=== PATIENT | male | born 1955 | race Caucasian/White ===

== ENCOUNTER 2018-07-02 09:12 | Inpatient (IN) | payer SELFPAY ==
[~2018-07-02] VITALS: Ht 177.8 cm; Wt 56.7 kg
[~2018-07-02 09:12] MED LIST: ASPI-630 PO; AZIT500T PO; HYDR-2761 PO; PANT20TA2 PO; PRED20TA PO
--- NOTE | 2018-07-02 09:40 | PHYS DOC ---
Past Medical History Past Medical History: No Pertinent History Past Surgical History: Other Additional Past Surgical Histo: KIDNEY REMOVED Alcohol Use: None Drug Use: None Adult General HPI HPI 63-year-old male presents to ER via EMS from his residence for tremors. BS 151 on arrival. Pt appears fatigued w/dry mucous membranes. Per pt's previous medical records pt possibly speaks Yi however his girlfriend or other family members haven't arrived and translation phone used to attempt communication was unsuccessful as editor newspaper denied pt speaking [place] language. So difficult communicating with pt to obtain full hx/sxs. Pt repeatedly saying he is thirsting. Review of Systems Review of Systems Unable to obtain ROS with language barrier- uncertain if pt has had change in me ntal status with no family at bedside Current Medications Current Medications Current Medications Medications (Trade) Dose Ordered Sig/Gloria Start Time Stop Time Status Last Admin Dose Admin Lorazepam (Ativan) 0.5 mg 1X ONCE 07/02/18 12:30 07/02/18 12:31 DC 07/02/18 12:12 0.5 MG Sodium Chloride 1,000 ml @ 1,000 mls/hr 1X ONCE 07/02/18 10:00 07/02/18 10:59 DC 07/02/18 10:00 1,000 MLS/HR Allergies Allergies Allergies Coded Allergies Type Severity Reaction Last Updated Verified No Known Drug Allergies 03/25/18 No Physical Exam Physical Exam Constitutional: Well developed, well nourished, anxious during initial exam with facial twitching and tremors in bilat. upper extremities, non-toxic appearance. [] HENT: Normocephalic, atraumatic, bilateral ears normal, mucous membranes pink/dry no oral exudates, nose normal. Symmetric facial features Eyes: 3mm PERRLA, no nystagmus, conjunctiva normal, no discharge. [] Neck: Normal range of motion, no facial grimacing on palp. of cspine- no palp. deformity/crepitus, supple, no stridor. [] Cardiovascular: Heart rate regular rhythm, no murmur [] Lungs & Thorax: Bilateral breath sounds clear to auscultation. Resp. equal/nonlabored Abdomen: Bowel sounds normal, soft, no facial grimacing during palp. of abd, no masses, no pulsatile masses. [] Skin: Warm, dry, no erythema, no rash Extremities: No tenderness, no cyanosis, no clubbing, ROM intact, no edema. [] Neurologic: Alert- Difficult to fully assess neuro status with language barrier Psychologic: Anxious during exam- repeatedly asking for drink of water. Current Patient Data Vital Signs Vital Signs Date Time Temp Pulse Resp B/P (MAP) Pulse Ox O2 Delivery O2 Flow Rate FiO2 07/02/18 12:25 86 20 198/81 (120) 96 Room Air 07/02/18 10:42 98.0 98.0 Lab Values Laboratory Tests Test 07/02/18 09:23 07/02/18 10:00 07/02/18 11:10 07/02/18 11:20 Glucose (Fingerstick) 151 mg/dL (70-99) H White Blood Count 9.9 x10^3/uL (4.0-11.0) Red Blood Count 6.05 x10^6/uL (4.30-5.70) H Hemoglobin 15.0 g/dL (13.0-17.5) Hematocrit 46.3 % (39.0-53.0) Mean Corpuscular Volume 77 fL (79-100) L Mean Corpuscular Hemoglobin 25 pg (25-35) Mean Corpuscular Hemoglobin Concent 32 g/dL (31-37) Red Cell Distribution Width 15.1 % (11.5-14.5) H Platelet Count 198 x10^3/uL (140-400) Neutrophils (%) (Auto) 76 % (31-73) H Lymphocytes (%) (Auto) 15 % (24-48) L Monocytes (%) (Auto) 5 % (0-9) Eosinophils (%) (Auto) 4 % (0-3) H Basophils (%) (Auto) 1 % (0-3) Neutrophils # (Auto) 7.5 x10^3uL (1.8-7.7) Lymphocytes # (Auto) 1.5 x10^3/uL (1.0-4.8) Monocytes # (Auto) 0.5 x10^3/uL (0.0-1.1) Eosinophils # (Auto) 0.3 x10^3/uL (0.0-0.7) Basophils # (Auto) 0.1 x10^3/uL (0.0-0.2) Triglycerides Level 55 mg/dL (0-150) Cholesterol Level 152 mg/dL (0-200) LDL Cholesterol, Calculated 88 mg/dL (0-100) VLDL Cholesterol, Calculated 11 mg/dL (0-40) Non-HDL Cholesterol Calculated 99 mg/dL (0-129) HDL Cholesterol 53 mg/dL (40-60) Cholesterol/HDL Ratio 2.9 Sodium Level 140 mmol/L (136-145) Potassium Level 5.5 mmol/L (3.5-5.1) H Chloride Level 104 mmol/L (98-107) Carbon Dioxide Level 30 mmol/L (21-32) Anion Gap 6 (6-14) Blood Urea Nitrogen 22 mg/dL (8-26) Creatinine 1.1 mg/dL (0.7-1.3) Estimated GFR (Cockcroft-Gault) 67.6 BUN/Creatinine Ratio 20 (6-20) Glucose Level 126 mg/dL (70-99) H Calcium Level 8.9 mg/dL (8.5-10.1) Total Bilirubin 0.6 mg/dL (0.2-1.0) Aspartate Amino Transferase (AST) 28 U/L (15-37) Alanine Aminotransferase (ALT) 29 U/L (16-63) Alkaline Phosphatase 98 U/L (46-116) Creatine Kinase 89 U/L (39-308) Creatine Kinase MB (Mass) 1.5 ng/mL (0.0-3.6) Creatine Kinase MB Relative Index 1.7 % (0-4) Troponin I Quantitative 0.163 ng/mL (0.000-0.055) Total Protein 8.4 g/dL (6.4-8.2) H Albumin 3.6 g/dL (3.4-5.0) Albumin/Globulin Ratio 0.8 (1.0-1.7) L Ethyl Alcohol Level < 10 mg/dL (0-10) Influenza Type A Antigen Negative (NEGATIVE) Influenza Type B Antigen Negative (NEGATIVE) Test 07/02/18 12:24 Urine Collection Type Unknown Urine Color Yellow Urine Clarity Clear Urine pH 7.0 Urine Specific [place] 1.025 Urine Protein 100 mg/dL (NEG-TRACE) Urine Glucose (UA) Negative mg/dL (NEG) Urine Ketones (Stick) Negative mg/dL (NEG) Urine Blood Small (NEG) Urine Nitrite Negative (NEG) Urine Bilirubin Negative (NEG) Urine Urobilinogen Dipstick 0.2 mg/dL (0.2 mg/dL) Urine Leukocyte Esterase Negative (NEG) Urine RBC 20-40 /HPF (0-2) Urine WBC Occ /HPF (0-4) Urine Squamous Epithelial Cells Few /LPF Urine Bacteria 0 /HPF (0-FEW) Urine Mucus Slight /LPF Urine Opiates Screen Neg (NEG) Urine Methadone Screen Neg (NEG) Urine Barbiturates Neg (NEG) Urine Phencyclidine Screen Neg (NEG) Urine Amphetamine/Methamphetamine Neg (NEG) Urine Benzodiazepines Screen Neg (NEG) Urine Cocaine Screen Neg (NEG) Urine Cannabinoids Screen Neg (NEG) Urine Ethyl Alcohol Neg (NEG) Laboratory Tests 07/02/18 10:00 Laboratory Tests 07/02/18 11:10 EKG EKG EKG obtained 07/02/18 at [address] Mayes Sinu rhythm PACs Rate 81 No STEMI Radiology/Procedures Radiology/Procedures PROCEDURE: CT HEAD WO CONTRAST EXAM: Head CT without contrast. HISTORY: Tremors. TECHNIQUE: Computed tomographic images of the head were obtained without contrast.. *One or more of the following individualized dose reduction techniques were utilized for this examination: 1. Automated exposure control. 2. Adjustment of the mA and/or kV according to patient size. 3. Use of iterative reconstruction technique. COMPARISON: None. FINDINGS: There is no acute or subacute extra-axial or intraparenchymal hemorrhage. There is no mass effect or midline shift. There is no hydrocephalus. There is asymmetry within the right greater than left lateral ventricles, likely due to the combination of developmental asymmetry and asymmetric cerebral volume loss. There are areas of decreased attenuation within the cerebral white matter, nonspecific and likely related to chronic small vessel disease. There is paranasal sinus mucosal thickening. There is maxillary sinus wall thickening due to the sequela of chronic sinusitis. The mastoid air cells are clear. No suspicious calvarial lesion is seen. There is a prominent left frontal bone and arachnoid granulation. IMPRESSION: 1. No acute intracranial finding. Note is made that MRI is more sensitive for acute infarction. 2. Decreased attenuation within the cerebral white matter, likely due to chronic small vessel disease. 3. Cerebral atrophy. Electronically signed by: Leora Lopez MD (07/02/2018 10:37 AM) [place] [id number] DICTATED and SIGNED BY: LEORA LOPEZ MD DATE: 07/02/18 1037 PROCEDURE: CHEST AP ONLY Chest radiograph 07/02/2018 9:32 AM INDICATION: Tremors, diaphoretic COMPARISON: March 25, 2018 TECHNIQUE: Portable frontal semi-upright view of the chest is provided. FINDINGS: The cardiomediastinal silhouette is within normal limits. There are no pleural effusions. There is no pulmonary vascular congestion. There is no pneumothorax. The lungs are clear. No significant osseous abnormality is identified. IMPRESSION: No acute cardiopulmonary process. Electronically signed by: Autumn Ceja MD (07/02/2018 10:17 AM) [id number] DICTATED and SIGNED BY: AUTUMN CEJA MD DATE: 07/02/18 1017 Course & Med Decision Making Course & Med Decision Making Pertinent Labs and Imaging studies reviewed. (See chart for details) While in the ER patient continued to have tremors in upper extremities and facial twitching. During these episodes patient was alert and continued to request ice. Patient had no episodes of decreased level of consciousness. As no family members arrived communication with patient prior to admit was limited. Patient did have head CT which was negative for acute findings. Chest x-ray also negative for acute findings. EKG with no acute ST elevation or STEMI. Troponin was elevated from previous results on 03/25/18 troponin was <0.017 and today troponin was 0.163. Order placed for aspirin 324mg. No records in patient's history of previous tremors or seizure-like activity. Patient's UDS was negative. Initial potassium was 5.5 and patient did receive IV fluids after lab draw. 1300: Spoke with Dr. Silveira, hospitalist and discussed pt's case and admit plan. With elevated troponin will consult Cardiology with admit orders. Dragon Disclaimer Dragon Disclaimer This electronic medical record was generated, in whole or in part, using a voice recognition dictation system. Departure Departure Impression: Primary Impression: Elevated troponin Additional Impression: Tremor Disposition: ADMITTED INPATIENT Admitting Physician: Luis Fernando Lewis Condition: STABLE Referrals: UNKNOWN PCP NAME (PCP) Scripts Morphine Sulfate (MORPHINE SULFATE) 15 Mg Tablet 1 TAB PO QID PRN for PAIN, #60 TAB Prov: BRANDIE CASTRO MD 07/29/18 Lorazepam (ATIVAN) 1 Mg Tablet 1 MG PO Q4HRS PRN for ANXIETY / AGITATION, #90 TAB Prov: BRANDIE CASTRO MD 07/29/18 Quetiapine Fumarate (SEROQUEL) 100 Mg Tablet 100 MG PO BID PRN for ANXIETY / AGITATION, #60 TAB Prov: BRANDIE CASTRO MD 07/29/18 Zolpidem Tartrate (AMBIEN) 5 Mg Tablet 5 MG PO PRN QHS PRN for INSOMNIA, #30 TAB Prov: BRANDIE CASTRO MD 07/29/18 Docusate Sodium (COLACE) 100 Mg Capsule 100 MG PO PRN BID PRN for CONSTIPATION, #60 CAP Prov: BRANDIE CASTRO MD 07/29/18 Problem Qualifiers FLORENTINO GARRIDO APRN Jul 02, 2018 09:40
[2018-07-02] MEDS ORDERED: IV NORMAL SALINE 1000ML BAG 1,000 ML IV ONE (10:00)
[2018-07-02 10:16] LABS: BASO # 0.1 x10^3/uL (0.0-0.2); BASO % 1 % (0-3); EOS # 0.3 x10^3/uL (0.0-0.7); EOS % 4 % (0-3); HEMATOCRIT 46.3 % (39.0-53.0); LYMPH # 1.5 x10^3/uL (1.0-4.8); LYMPH % 15 % (24-48); MEAN CORPUSCULAR HEMOGLOBIN 25 pg (25-35); MEAN CORPUSCULAR HGB CONC 32 g/dL (31-37); MEAN CORPUSCULAR VOLUME 77 fL (79-100); MONO # 0.5 x10^3/uL (0.0-1.1); MONO % 5 % (0-9); NEUT # 7.5 x10^3uL (1.8-7.7); NEUT % 76 % (31-73); PLATELET COUNT 198 x10^3/uL (140-400); RED BLOOD COUNT 6.05 x10^6/uL (4.30-5.70); RED CELL DISTRIBUTION WIDTH 15.1 % (11.5-14.5); WHITE BLOOD COUNT 9.9 x10^3/uL (4.0-11.0)
--- NOTE | 2018-07-02 10:20 | RAD ---
Chest radiograph 07/02/2018 9:32 AM INDICATION: Tremors, diaphoretic COMPARISON: March 25, 2018 TECHNIQUE: Portable frontal semi-upright view of the chest is provided. FINDINGS: The cardiomediastinal silhouette is within normal limits. There are no pleural effusions. There is no pulmonary vascular congestion. There is no pneumothorax. The lungs are clear. No significant osseous abnormality is identified. IMPRESSION: No acute cardiopulmonary process. Electronically signed by: Genny Bonilla MD (07/02/2018 10:17 AM) [id number]
--- NOTE | 2018-07-02 10:41 | RAD ---
EXAM: Head CT without contrast. HISTORY: Tremors. TECHNIQUE: Computed tomographic images of the head were obtained without contrast.. *One or more of the following individualized dose reduction techniques were utilized for this examination: 1. Automated exposure control. 2. Adjustment of the mA and/or kV according to patient size. 3. Use of iterative reconstruction technique. COMPARISON: None. FINDINGS: There is no acute or subacute extra-axial or intraparenchymal hemorrhage. There is no mass effect or midline shift. There is no hydrocephalus. There is asymmetry within the right greater than left lateral ventricles, likely due to the combination of developmental asymmetry and asymmetric cerebral volume loss. There are areas of decreased attenuation within the cerebral white matter, nonspecific and likely related to chronic small vessel disease. There is paranasal sinus mucosal thickening. There is maxillary sinus wall thickening due to the sequela of chronic sinusitis. The mastoid air cells are clear. No suspicious calvarial lesion is seen. There is a prominent left frontal bone and arachnoid granulation. IMPRESSION: 1. No acute intracranial finding. Note is made that MRI is more sensitive for acute infarction. 2. Decreased attenuation within the cerebral white matter, likely due to chronic small vessel disease. 3. Cerebral atrophy. Electronically signed by: Leora Davila MD (07/02/2018 10:37 AM) [id number]
[2018-07-02 11:37] LABS: ALBUMIN 3.6 g/dL (3.4-5.0); ALBUMIN/GLOBULIN RATIO 0.8 (1.0-1.7); CALCIUM 8.9 mg/dL (8.5-10.1); CREATININE 1.1 mg/dL (0.7-1.3); GFR 67.6; POTASSIUM 5.5 mmol/L (3.5-5.1); TOTAL BILIRUBIN 0.6 mg/dL (0.2-1.0); TOTAL PROTEIN 8.4 g/dL (6.4-8.2)
[2018-07-02 12:17] LABS: INFLUENZA A PATIENT NEGATIVE (NEGATIVE); INFLUENZA B PATIENT NEGATIVE (NEGATIVE)
[2018-07-02 12:33] LABS: BILIRUBIN,URINE NEGATIVE (NEG); CLARITY,URINE CLEAR; COLOR,URINE YELLOW; NITRITE,URINE NEGATIVE (NEG); PROTEIN,URINE 100 mg/dL (NEG-TRACE); UROBILINOGEN,URINE 0.2 mg/dL (0.2 mg/dL)
[2018-07-02 12:40] LABS: AMPHETAMINE/METHAMPHETAMINE NEG (NEG); BARBITURATES NEG (NEG); BENZODIAZEPINES NEG (NEG); CANNABINOIDS NEG (NEG); COCAINE NEG (NEG); METHADONE NEG (NEG); OPIATES NEG (NEG); PHENCYCLIDINE NEG (NEG)
[2018-07-02 12:54] LABS: SQUAMOUS EPITHELIAL CELL,UR FEW /LPF
[2018-07-02 12:55] LABS: BACTERIA,URINE 0 /HPF (0-FEW); RBC,URINE 20-40 /HPF (0-2); WBC,URINE OCC /HPF (0-4)
[2018-07-02] MEDS ORDERED: ASPIRIN CHEWABLE 81 MG TABLET. PO ONE (13:30)
--- NOTE | 2018-07-02 13:34 | PDOC1 ---
History and Physical Date of Admission Date of Admission DATE: 07/02/18 TIME: 13:34 Identification/Chief Complaint Chief Complaint presents to ER via EMS from his residence for tremors. BS 151 on arrival. Pt appears fatigued somnolent, post-ictal SEEN WITH altered mental state. girlfriend mentioned noting him to be disoriented and EMS was called. He speaks kinyarwanda. ER noted with tremors while on floor /// noted with seizure episode and 911 was called Past Medical History Past Medical History Past Medical History Past Medical History Past Medical History: No Pertinent History Past Surgical History: Other Additional Past Surgical Histo: KIDNEY REMOVED Alcohol Use: None Drug Use: None PAST MEDICAL HISTORY Cardiovascular: Other (PAD; hx of asymptomatic SB) GERD PAST SURGICAL HISTORY Past Surgical History: Other (left nephrectomy) FAMILY HISTORY Family History: Family HX COPD SOCIAL HISTORY Smoke: <1 pack per day Lives: Friends Pulmonary: No pertinent hx GI: No pertinent hx Musculoskeletal: Osteoarthritis Infectious disease: No pertinent hx Renal/: No pertinent hx Endocrine: No pertinent hx Past Surgical History Past Surgical History: Other Family History Family History: Chronic Bronchitis Social History Smoke: No ALCOHOL: occassional Drugs: None Current Medications Current Medications Current Medications Sodium Chloride 1,000 ml @ 1,000 mls/hr 1X ONCE IV Last administered on at 10:00; Start 07/02/18 at 10:00; Stop 07/02/18 at 10:59; Status DC Lorazepam (Ativan) 0.5 mg 1X ONCE IV Last administered on 07/02/18at 12:12; Start 07/02/18 at 12:30; Stop 07/02/18 at 12:31; Status DC Aspirin (Children'S Aspirin) 324 mg 1X ONCE PO Last administered on 07/02/18at 13:18; Start 07/02/18 at 13:30; Stop 07/02/18 at 13:31; Status DC Active Scripts Active Reported Zithromax (Azithromycin) 500 Mg Tablet 1 Tab PO DAILY Aspirin 81 Mg Tab.chew 81 Mg PO DAILY Hydrocodone-Apap 5-325 (Hydrocodone Bit/Acetaminophen) 1 Tab Tablet 1 Tab PO PRN Q6HRS PRN Allergies Allergies: Coded Allergies: No Known Drug Allergies (Unverified , 03/25/18) ROS Review of System Review of Systems Review of Systems Constitutional: Denies fever or chills [] Eyes: Denies change in visual acuity, redness, or eye pain [] HENT: Denies nasal congestion or sore throat [] Respiratory: Denies cough or shortness of breath [] Cardiovascular: No additional information not addressed in HPI [] GI: Denies abdominal pain, nausea, vomiting, bloody stools or diarrhea [] : Denies dysuria or hematuria [] Musculoskeletal: Denies back pain or joint pain [] Integument: Denies rash or skin lesions [] Neurologic: Denies headache, focal weakness or sensory changes [] Endocrine: Denies polyuria or polydipsia [] 14 PT systems were reviewed and found to be within normal limits, except as documented . Hematological and Lymphatic: No: Bleeding Problems, Blood Clots, Blood Transfusions, Brusing, Night Sweats, Pallor, Swollen Lymph Nodes, Other Neurological: Yes Seizures Physical Exam Physical Exam Physical Exam Physical Exam Constitutional: Well developed, well nourished, anxious during initial exam with facial twitching and tremors in bilat. upper extremities, non-toxic appearance. [] HENT: Normocephalic, atraumatic, bilateral ears normal, mucous membranes pink/ dry no oral exudates, nose normal. [] Eyes: 3mm PERRLA, EOMI, conjunctiva normal, no discharge. [] Neck: Normal range of motion, no facial grimacing on palp. of cspine- no palp. deformity/crepitus, supple, no stridor. [] Cardiovascular: Heart rate regular rhythm, no murmur [] Lungs & Thorax: Bilateral breath sounds clear to auscultation. Resp. equal/ nonlabored Abdomen: Bowel sounds normal, soft, no facial grimacing during palp. of abd, no masses, no pulsatile masses. [] Skin: Warm, dry, no erythema, no rash Extremities: No tenderness, no cyanosis, no clubbing, ROM intact, no edema. [] Neurologic: Psychologic: Anxious during exam- repeatedly asking for drink of water. General: Cooperative, mild distress HEENT: Atraumatic Lungs: Clear to auscultation Breasts: Not examined Abdomen: Soft Rectal Exam: not examined PELVIC: Examination not indicated Extremities: No cyanosis Skin: No breakdown Neuro: Normal speech, Cranial nerves 3-12 NL Vitals Vitals Vital Signs Date Time Temp Pulse Resp B/P (MAP) Pulse Ox O2 Delivery O2 Flow Rate FiO2 07/02/18 10:42 98.0 73 18 140/81 (100) 96 Room Air 98.0 Labs Labs Laboratory Tests Test 07/02/18 09:23 07/02/18 10:00 07/02/18 11:10 07/02/18 11:20 Glucose (Fingerstick) 151 mg/dL (70-99) White Blood Count 9.9 x10^3/uL (4.0-11.0) Red Blood Count 6.05 x10^6/uL (4.30-5.70) Hemoglobin 15.0 g/dL (13.0-17.5) Hematocrit 46.3 % (39.0-53.0) Mean Corpuscular Volume 77 fL (79-100) Mean Corpuscular Hemoglobin 25 pg (25-35) Mean Corpuscular Hemoglobin Concent 32 g/dL (31-37) Red Cell Distribution Width 15.1 % (11.5-14.5) Platelet Count 198 x10^3/uL (140-400) Neutrophils (%) (Auto) 76 % (31-73) Lymphocytes (%) (Auto) 15 % (24-48) Monocytes (%) (Auto) 5 % (0-9) Eosinophils (%) (Auto) 4 % (0-3) Basophils (%) (Auto) 1 % (0-3) Neutrophils # (Auto) 7.5 x10^3uL (1.8-7.7) Lymphocytes # (Auto) 1.5 x10^3/uL (1.0-4.8) Monocytes # (Auto) 0.5 x10^3/uL (0.0-1.1) Eosinophils # (Auto) 0.3 x10^3/uL (0.0-0.7) Basophils # (Auto) 0.1 x10^3/uL (0.0-0.2) Sodium Level 140 mmol/L (136-145) Potassium Level 5.5 mmol/L (3.5-5.1) Chloride Level 104 mmol/L (98-107) Carbon Dioxide Level 30 mmol/L (21-32) Anion Gap 6 (6-14) Blood Urea Nitrogen 22 mg/dL (8-26) Creatinine 1.1 mg/dL (0.7-1.3) Estimated GFR (Cockcroft-Gault) 67.6 BUN/Creatinine Ratio 20 (6-20) Glucose Level 126 mg/dL (70-99) Calcium Level 8.9 mg/dL (8.5-10.1) Total Bilirubin 0.6 mg/dL (0.2-1.0) Aspartate Amino Transf (AST/SGOT) 28 U/L (15-37) Alanine Aminotransferase (ALT/SGPT) 29 U/L (16-63) Alkaline Phosphatase 98 U/L (46-116) Creatine Kinase 89 U/L (39-308) Creatine Kinase MB (Mass) 1.5 ng/mL (0.0-3.6) Creatine Kinase MB Relative Index 1.7 % (0-4) Troponin I Quantitative 0.163 ng/mL (0.000-0.055) Total Protein 8.4 g/dL (6.4-8.2) Albumin 3.6 g/dL (3.4-5.0) Albumin/Globulin Ratio 0.8 (1.0-1.7) Ethyl Alcohol Level < 10 mg/dL (0-10) Influenza Type A Antigen Negative (NEGATIVE) Influenza Type B Antigen Negative (NEGATIVE) Test 07/02/18 12:24 Urine Collection Type Unknown Urine Color Yellow Urine Clarity Clear Urine pH 7.0 Urine Specific [place] 1.025 Urine Protein 100 mg/dL (NEG-TRACE) Urine Glucose (UA) Negative mg/dL (NEG) Urine Ketones (Stick) Negative mg/dL (NEG) Urine Blood Small (NEG) Urine Nitrite Negative (NEG) Urine Bilirubin Negative (NEG) Urine Urobilinogen Dipstick 0.2 mg/dL (0.2 mg/dL) Urine Leukocyte Esterase Negative (NEG) Urine RBC 20-40 /HPF (0-2) Urine WBC Occ /HPF (0-4) Urine Squamous Epithelial Cells Few /LPF Urine Bacteria 0 /HPF (0-FEW) Urine Mucus Slight /LPF Urine Opiates Screen Neg (NEG) Urine Methadone Screen Neg (NEG) Urine Barbiturates Neg (NEG) Urine Phencyclidine Screen Neg (NEG) Urine Amphetamine/Methamphetamine Neg (NEG) Urine Benzodiazepines Screen Neg (NEG) Urine Cocaine Screen Neg (NEG) Urine Cannabinoids Screen Neg (NEG) Urine Ethyl Alcohol Neg (NEG) Laboratory Tests Test 07/02/18 09:23 07/02/18 10:00 07/02/18 11:10 07/02/18 11:20 Glucose (Fingerstick) 151 mg/dL (70-99) White Blood Count 9.9 x10^3/uL (4.0-11.0) Red Blood Count 6.05 x10^6/uL (4.30-5.70) Hemoglobin 15.0 g/dL (13.0-17.5) Hematocrit 46.3 % (39.0-53.0) Mean Corpuscular Volume 77 fL (79-100) Mean Corpuscular Hemoglobin 25 pg (25-35) Mean Corpuscular Hemoglobin Concent 32 g/dL (31-37) Red Cell Distribution Width 15.1 % (11.5-14.5) Platelet Count 198 x10^3/uL (140-400) Neutrophils (%) (Auto) 76 % (31-73) Lymphocytes (%) (Auto) 15 % (24-48) Monocytes (%) (Auto) 5 % (0-9) Eosinophils (%) (Auto) 4 % (0-3) Basophils (%) (Auto) 1 % (0-3) Neutrophils # (Auto) 7.5 x10^3uL (1.8-7.7) Lymphocytes # (Auto) 1.5 x10^3/uL (1.0-4.8) Monocytes # (Auto) 0.5 x10^3/uL (0.0-1.1) Eosinophils # (Auto) 0.3 x10^3/uL (0.0-0.7) Basophils # (Auto) 0.1 x10^3/uL (0.0-0.2) Sodium Level 140 mmol/L (136-145) Potassium Level 5.5 mmol/L (3.5-5.1) Chloride Level 104 mmol/L (98-107) Carbon Dioxide Level 30 mmol/L (21-32) Anion Gap 6 (6-14) Blood Urea Nitrogen 22 mg/dL (8-26) Creatinine 1.1 mg/dL (0.7-1.3) Estimated GFR (Cockcroft-Gault) 67.6 BUN/Creatinine Ratio 20 (6-20) Glucose Level 126 mg/dL (70-99) Calcium Level 8.9 mg/dL (8.5-10.1) Total Bilirubin 0.6 mg/dL (0.2-1.0) Aspartate Amino Transf (AST/SGOT) 28 U/L (15-37) Alanine Aminotransferase (ALT/SGPT) 29 U/L (16-63) Alkaline Phosphatase 98 U/L (46-116) Creatine Kinase 89 U/L (39-308) Creatine Kinase MB (Mass) 1.5 ng/mL (0.0-3.6) Creatine Kinase MB Relative Index 1.7 % (0-4) Troponin I Quantitative 0.163 ng/mL (0.000-0.055) Total Protein 8.4 g/dL (6.4-8.2) Albumin 3.6 g/dL (3.4-5.0) Albumin/Globulin Ratio 0.8 (1.0-1.7) Ethyl Alcohol Level < 10 mg/dL (0-10) Influenza Type A Antigen Negative (NEGATIVE) Influenza Type B Antigen Negative (NEGATIVE) Test 07/02/18 12:24 Urine Collection Type Unknown Urine Color Yellow Urine Clarity Clear Urine pH 7.0 Urine Specific [place] 1.025 Urine Protein 100 mg/dL (NEG-TRACE) Urine Glucose (UA) Negative mg/dL (NEG) Urine Ketones (Stick) Negative mg/dL (NEG) Urine Blood Small (NEG) Urine Nitrite Negative (NEG) Urine Bilirubin Negative (NEG) Urine Urobilinogen Dipstick 0.2 mg/dL (0.2 mg/dL) Urine Leukocyte Esterase Negative (NEG) Urine RBC 20-40 /HPF (0-2) Urine WBC Occ /HPF (0-4) Urine Squamous Epithelial Cells Few /LPF Urine Bacteria 0 /HPF (0-FEW) Urine Mucus Slight /LPF Urine Opiates Screen Neg (NEG) Urine Methadone Screen Neg (NEG) Urine Barbiturates Neg (NEG) Urine Phencyclidine Screen Neg (NEG) Urine Amphetamine/Methamphetamine Neg (NEG) Urine Benzodiazepines Screen Neg (NEG) Urine Cocaine Screen Neg (NEG) Urine Cannabinoids Screen Neg (NEG) Urine Ethyl Alcohol Neg (NEG) Images Images EXAM: 3 views of the facial bones DATE: 07/02/2018 4:46 PM INDICATION: INPATIENT. MRI CLEARANCE. FORIEGN BODY. PRIOR CT. COMPARISON: No Prior FINDINGS/ IMPRESSION: Metallic density projects over the floor of the left maxillary sinus. No definite orbital foreign body is seen. No definite air-fluid level within the paranasal sinuses. No obvious fractures identified Electronically signed by: Tariq Harry MD (07/02/2018 5:09 PM) [facility] STATUS: REG ER ORD. PHYSICIAN: FLORENTINO GARRIDO APRN REASON: tremors PROCEDURE: CT HEAD WO CONTRAST EXAM: Head CT without contrast. HISTORY: Tremors. TECHNIQUE: Computed tomographic images of the head were obtained without contrast.. *One or more of the following individualized dose reduction techniques were utilized for this examination: 1. Automated exposure control. 2. Adjustment of the mA and/or kV according to patient size. 3. Use of iterative reconstruction technique. COMPARISON: None. FINDINGS: There is no acute or subacute extra-axial or intraparenchymal hemorrhage. There is no mass effect or midline shift. There is no hydrocephalus. There is asymmetry within the right greater than left lateral ventricles, likely due to the combination of developmental asymmetry and asymmetric cerebral volume loss. There are areas of decreased attenuation within the cerebral white matter, nonspecific and likely related to chronic small vessel disease. There is paranasal sinus mucosal thickening. There is maxillary sinus wall thickening due to the sequela of chronic sinusitis. The mastoid air cells are clear. No suspicious calvarial lesion is seen. There is a prominent left frontal bone and arachnoid granulation. IMPRESSION: 1. No acute intracranial finding. Note is made that MRI is more sensitive for acute infarction. 2. Decreased attenuation within the cerebral white matter, likely due to chronic small vessel disease. 3. Cerebral atrophy. Electronically signed by: Leora Davila MD (07/02/2018 10:37 AM) [facility] S1 Velocity 43.7cm/s D2 Velocity 36.0cm/s PVa duration 106msec LEFT VENTRICLE The left ventricle is normal size. There is normal left ventricular wall thickness. The left ventricular systolic function is normal. The Ejection Fraction is 60-65%. There is normal LV segmental wall motion. RIGHT VENTRICLE The right ventricle is normal size. There is normal right ventricular wall thickness. The right ventricular systolic function is normal. ATRIA The left atrium size is normal. The right atrium size is normal. The interatrial septum is intact with no evidence for an atrial septal defect or patent foramen ovale as noted on 2-D or Doppler imaging. AORTIC VALVE The aortic valve is normal in structure and function. The aortic valve is trileaflet. Doppler and Color Flow revealed trace to mild aortic regurgitation. There is no significant aortic valvular stenosis. MITRAL VALVE The mitral valve is normal in structure and function. There is no evidence of mitral valve prolapse. There is no mitral valve stenosis. Doppler and Color- flow revealed trace mitral regurgitation. TRICUSPID VALVE The tricuspid valve is normal in structure and function. Doppler and Color Flow revealed mild tricuspid regurgitation. There is mild pulmonary hypertension. The PA pressure was estimated at 36 mmHg. There is no tricuspid valve prolapse or vegetation. There is no tricuspid valve stenosis. PULMONIC VALVE Pulmonic valve not well visualized. Doppler and Color Flow revealed no pulmonic valvular regurgitation. There is no pulmonic valvular stenosis. GREAT VESSELS The aortic root is normal in size. The ascending aorta is normal in size. The IVC is normal in size and collapses >50% with inspiration. PERICARDIAL EFFUSION There is no evidence of significant pericardial effusion. Critical Notification Critical Value: No <Conclusion> The left ventricular systolic function is normal. The Ejection Fraction is 60-65%. There is normal LV segmental wall motion. Trace to mild aortic regurgitation. Trace mitral regurgitation. Mild tricuspid regurgitation. The PA pressure was estimated at 36 mmHg. There is no evidence of significant pericardial effusion. Signed by : Daniel Medellin, Electronically Approved : 03/26/2018 16:00:03 VTE Prophylaxis Ordered VTE Prophylaxis Devices: Yes VTE Pharmacological Prophylaxi: Yes Assessment/Plan Assessment/Plan IMPRESSION IMPRESSION: tremors ///POSSIBLE SEIZURE No acute intracranial finding. Note is made that MRI is more sensitive for acute infarction. Metallic density projects over the floor of the left maxillary sinus. No definite orbital foreign body is seen. Decreased attenuation within the cerebral white matter, likely due to chronic small vessel disease. Cerebral atrophy. ELEVATED TROPONIN I PLAN Cardiac monitoring Serial Enzymes Serial EKGs Home meds Neurology consult IV ATIVAN PRN SEIZURE ACTIVITY DVT PROPHYLAXIS CARDIOLOGY CONSULT seizure precautions mri on hold 79 min pt exam, chart review,> 50% of time with pt exam, chart review, pt care coordination LINDA ECHEVARRIA MD Jul 02, 2018 13:34
--- NOTE | 2018-07-02 14:26 | EKG ---
[facility] [address] [place] [address] Test Date: 2018-07-02 Test Time: 12:35:57 Pat Name: ZAMZAM DUENAS Department: Room: 256 1 Gender: M [employer] Scullion: : 1955 Requested By: FLORENTINO GARRIDO Order Number: [id number] Reading MD: Benson Scott MD Measurements Intervals [place] Rate: 81 P: 77 NE: 162 QRS: 42 QRSD: 80 T: 41 QT: 376 QTc: 437 Interpretive Statements SINUS RHYTHM ATRIAL PREMATURE COMPLEX(ES) NON-SPECIFIC ST/T CHANGES CONSIDER LVH Electronically Signed On 07-04-2018 14:40:55 CDT by Benson Scott MD
[2018-07-02] MEDS ORDERED: ACETAMINOPHEN 325 MG TABLET. PO PRN (14:30)
[2018-07-02 15:00] VITALS: BP 168/81
--- NOTE | 2018-07-02 15:00 | NUR ---
Patient unable verbalize any of admission assessment at this time due to sedation from Ativan in ER.
--- NOTE | 2018-07-02 15:10 | NUR ---
Rapid response team called due to unresponsiveness and seizure like activity involving whole left side of body. Dr. Engel is consulted and paged.
--- NOTE | 2018-07-02 15:34 | EKG ---
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
[2018-07-02] MEDS ORDERED: cloNIDine HCL 0.1 MG TABLET PO PRN (15:45)
[2018-07-02] MEDS ORDERED: ONDANSETRON PF 4 MG/2 ML VIAL. IV PRN (15:45)
[2018-07-02] MEDS ORDERED: guaiFENesin ORAL 200 MG/10 ML LIQUID. PO PRN (15:45)
[2018-07-02] MEDS ORDERED: 0.9 % SODIUM CHLORIDE 3ML DISP.SYRIN. IV PRN (15:45)
[2018-07-02] MEDS ORDERED: MAG HYDROX/ALUMINUM HYD/SIMETH 30 ML ORAL.SUSP PO PRN (15:45)
[2018-07-02] MEDS ORDERED: ALBUTEROL SULFATE 2.5 MG/3 ML NEBU. NEB PRN (15:45)
[2018-07-02] MEDS: levETIRAcetam 750 MG in IV DEXTROSE 5% 100ML 100 ML IV SCH ×2 (16:03→21:16)
[2018-07-02] MEDS: IV NORMAL SALINE 1000ML BAG 1,000 ML IV SCH (16:04)
--- NOTE | 2018-07-02 16:43 | PDOC2 ---
CARDIAC CONSULT DATE OF CONSULT Date of Consult DATE: 07/02/18 TIME: 16:14 REASON FOR CONSULT Reason for Consult: Elevated troponin REFERRING PHYSICIAN Referring Physician: Fullbright SOURCE Source: Chart review HISTORY OF PRESENT ILLNESS HISTORY OF PRESENT ILLNESS This is a 63 yo descent male admitted for complains of altered mental state. Per staff, girlfriend mentioned noting him to be disoriented and EMS was called. He speaks bengali. He was noted with tremors and while on floor he was noted with seizure episode and rapid response was called and better after ativan. Currently he is sedated with ativan. No noted complains of any CP SOA leading to this event. No known hx of CAD but noted previously with PAD. It does not appear that he takes medications. PAST MEDICAL HISTORY Cardiovascular: Other (PAD; hx of asymptomatic SB) GI: GERD PAST SURGICAL HISTORY Past Surgical History: Other (left nephrectomy) FAMILY HISTORY Family History: Family History Unknown SOCIAL HISTORY Smoke: <1 pack per day Lives: Friends CURRENT MEDICATIONS CURRENT MEDICATIONS Current Medications Medications (Trade) Dose Ordered Sig/Gloria Route PRN Reason Start Time Stop Time Status Last Admin Dose Admin Sodium Chloride 1,000 ml @ 1,000 mls/hr 1X ONCE IV 07/02/18 10:00 07/02/18 10:59 DC 07/02/18 10:00 Lorazepam (Ativan) 0.5 mg 1X ONCE IV 07/02/18 12:30 07/02/18 12:31 DC 07/02/18 12:12 Aspirin (Children'S Aspirin) 324 mg 1X ONCE PO 07/02/18 13:30 07/02/18 13:31 DC 07/02/18 13:18 Lorazepam (Ativan) 2 mg PRN Q4HRS PRN IV ANXIETY / AGITATION 07/02/18 15:30 07/02/18 15:41 Levetiracetam 750 mg/Dextrose 107.5 ml @ 420 mls/hr Q12HR IV 07/02/18 16:30 07/02/18 16:03 Sodium Chloride 1,000 ml @ 100 mls/hr Q10H IV 07/02/18 16:30 07/02/18 16:04 ALLERGIES ALLERGIES: Coded Allergies: No Known Drug Allergies (Unverified , 03/25/18) ROS Review of System unreliable, sedated PHYSICAL EXAM General: No acute distress, Other (sedated) HEENT: Atraumatic, Mucous membr. moist/pink Lungs: Clear to auscultation, Normal air movement Heart: Regular rate (SR), Normal S1, Normal S2, Other (2/6 systolic murmur to LLS border) Abdomen: Soft Extremities: No cyanosis, No edema Skin: No breakdown, No significant lesion Neuro: Sensation intact, Other (sedated) MUSCULOSKELETAL: Osteoarthritic changes both hands VITALS VITALS Vital Signs Date Time Temp Pulse Resp B/P (MAP) Pulse Ox O2 Delivery O2 Flow Rate FiO2 07/02/18 15:00 98.6 97 22 168/81 (110) 99 Room Air 98.6 LABS Lab: Laboratory Tests Test 07/02/18 09:23 07/02/18 10:00 07/02/18 11:10 07/02/18 11:20 Glucose (Fingerstick) 151 mg/dL (70-99) White Blood Count 9.9 x10^3/uL (4.0-11.0) Red Blood Count 6.05 x10^6/uL (4.30-5.70) Hemoglobin 15.0 g/dL (13.0-17.5) Hematocrit 46.3 % (39.0-53.0) Mean Corpuscular Volume 77 fL (79-100) Mean Corpuscular Hemoglobin 25 pg (25-35) Mean Corpuscular Hemoglobin Concent 32 g/dL (31-37) Red Cell Distribution Width 15.1 % (11.5-14.5) Platelet Count 198 x10^3/uL (140-400) Neutrophils (%) (Auto) 76 % (31-73) Lymphocytes (%) (Auto) 15 % (24-48) Monocytes (%) (Auto) 5 % (0-9) Eosinophils (%) (Auto) 4 % (0-3) Basophils (%) (Auto) 1 % (0-3) Neutrophils # (Auto) 7.5 x10^3uL (1.8-7.7) Lymphocytes # (Auto) 1.5 x10^3/uL (1.0-4.8) Monocytes # (Auto) 0.5 x10^3/uL (0.0-1.1) Eosinophils # (Auto) 0.3 x10^3/uL (0.0-0.7) Basophils # (Auto) 0.1 x10^3/uL (0.0-0.2) Sodium Level 140 mmol/L (136-145) Potassium Level 5.5 mmol/L (3.5-5.1) Chloride Level 104 mmol/L (98-107) Carbon Dioxide Level 30 mmol/L (21-32) Anion Gap 6 (6-14) Blood Urea Nitrogen 22 mg/dL (8-26) Creatinine 1.1 mg/dL (0.7-1.3) Estimated GFR (Cockcroft-Gault) 67.6 BUN/Creatinine Ratio 20 (6-20) Glucose Level 126 mg/dL (70-99) Calcium Level 8.9 mg/dL (8.5-10.1) Total Bilirubin 0.6 mg/dL (0.2-1.0) Aspartate Amino Transf (AST/SGOT) 28 U/L (15-37) Alanine Aminotransferase (ALT/SGPT) 29 U/L (16-63) Alkaline Phosphatase 98 U/L (46-116) Creatine Kinase 89 U/L (39-308) Creatine Kinase MB (Mass) 1.5 ng/mL (0.0-3.6) Creatine Kinase MB Relative Index 1.7 % (0-4) Troponin I Quantitative 0.163 ng/mL (0.000-0.055) Total Protein 8.4 g/dL (6.4-8.2) Albumin 3.6 g/dL (3.4-5.0) Albumin/Globulin Ratio 0.8 (1.0-1.7) Ethyl Alcohol Level < 10 mg/dL (0-10) Influenza Type A Antigen Negative (NEGATIVE) Influenza Type B Antigen Negative (NEGATIVE) Test 07/02/18 12:24 07/02/18 15:12 Urine Collection Type Unknown Urine Color Yellow Urine Clarity Clear Urine pH 7.0 Urine Specific [place] 1.025 Urine Protein 100 mg/dL (NEG-TRACE) Urine Glucose (UA) Negative mg/dL (NEG) Urine Ketones (Stick) Negative mg/dL (NEG) Urine Blood Small (NEG) Urine Nitrite Negative (NEG) Urine Bilirubin Negative (NEG) Urine Urobilinogen Dipstick 0.2 mg/dL (0.2 mg/dL) Urine Leukocyte Esterase Negative (NEG) Urine RBC 20-40 /HPF (0-2) Urine WBC Occ /HPF (0-4) Urine Squamous Epithelial Cells Few /LPF Urine Bacteria 0 /HPF (0-FEW) Urine Mucus Slight /LPF Urine Opiates Screen Neg (NEG) Urine Methadone Screen Neg (NEG) Urine Barbiturates Neg (NEG) Urine Phencyclidine Screen Neg (NEG) Urine Amphetamine/Methamphetamine Neg (NEG) Urine Benzodiazepines Screen Neg (NEG) Urine Cocaine Screen Neg (NEG) Urine Cannabinoids Screen Neg (NEG) Urine Ethyl Alcohol Neg (NEG) Glucose (Fingerstick) 115 mg/dL (70-99) IMAGES IMAGES <Conclusion> 1. Severe bilateral SFA and left common femoral artery disease. 2. Three-vessel runoff with blunted velocities on the right and grossly normal velocities on the left. 3. Would recommend consideration of outpatient evaluation for angiography but at this present time due to lack of any symptoms would treat conservatively. DATE: 03/26/18 173 ECHOCARDIOGRAM ECHOCARDIOGRAM <Conclusion> The left ventricular systolic function is normal. The Ejection Fraction is 60-65%. There is normal LV segmental wall motion. Trace to mild aortic regurgitation. Trace mitral regurgitation. Mild tricuspid regurgitation. The PA pressure was estimated at 36 mmHg. There is no evidence of significant pericardial effusion. DATE: 03/26/18 1600 ASSESSMENT/PLAN ASSESSMENT/PLAN 1. Seizure/encephalopathy: new onset. potentially on postictal state at home when found by girlfriend with disorientation. 2. Elevated troponin: EKG SR without acute changes. Trop at 0.16. Suspect demand mediated by seizures 3. Hx of nephrectomy left? 4. Tobaccoism 5. Hx of asymptomatic SB 6. PAD: failed f/u likely due to financial constraints.No wounds, both LE are warm to touch 7. Hyperkalemia mild at 5.5 8. HTN: labile Recommendations 1. Smoking cessation 2. Neurology consulted. 3. Address PAD as outpt. 4. ASA, statin per lipids 5. Limited TTE and note EF and WM. 6. Recheck K. Hydralazine IV PRN. NTG paste. BETTY PINA APRN Jul 02, 2018 16:43
--- NOTE | 2018-07-02 17:13 | RAD ---
EXAM: 3 views of the facial bones DATE: 07/02/2018 4:46 PM INDICATION: INPATIENT. MRI CLEARANCE. FORIEGN BODY. PRIOR CT. COMPARISON: No Prior FINDINGS/ IMPRESSION: Metallic density projects over the floor of the left maxillary sinus. No definite orbital foreign body is seen. No definite air-fluid level within the paranasal sinuses. No obvious fractures identified Electronically signed by: Tariq Harry MD (07/02/2018 5:09 PM) [facility]
[2018-07-02 17:30] LABS: CHOLESTEROL/HDL RATIO 2.9
[2018-07-02 19:15] VITALS: BP 154/67
[2018-07-02] MEDS: NITROGLYCERIN OINT 1 GM PACKET. TP SCH (21:16)
[2018-07-02 23:25] VITALS: BP 153/67
[2018-07-03] VITALS (7 sets, daily range): BP systolic 137–219; BP diastolic 64–95
[2018-07-03] MEDS: NITROGLYCERIN OINT 1 GM PACKET. TP SCH ×5 (00:20→23:31)
[2018-07-03] MEDS: IV NORMAL SALINE 1000ML BAG 1,000 ML IV SCH ×3 (01:20→22:30)
[2018-07-03 05:12] LABS: BASO % 0 % (0-3); EOS # 0.1 x10^3/uL (0.0-0.7); EOS % 1 % (0-3); HEMATOCRIT 42.9 % (39.0-53.0); HEMOGLOBIN 13.6 g/dL (13.0-17.5); LYMPH # 1.8 x10^3/uL (1.0-4.8); LYMPH % 16 % (24-48); MEAN CORPUSCULAR HEMOGLOBIN 24 pg (25-35); MEAN CORPUSCULAR HGB CONC 32 g/dL (31-37); MEAN CORPUSCULAR VOLUME 76 fL (79-100); MONO # 0.8 x10^3/uL (0.0-1.1); MONO % 8 % (0-9); NEUT % 74 % (31-73); PLATELET COUNT 184 x10^3/uL (140-400); RED BLOOD COUNT 5.62 x10^6/uL (4.30-5.70); RED CELL DISTRIBUTION WIDTH 15.1 % (11.5-14.5); WHITE BLOOD COUNT 10.7 x10^3/uL (4.0-11.0)
[2018-07-03 05:31] LABS: CALCIUM 9.3 mg/dL (8.5-10.1); GFR 75.5
[2018-07-03] MEDS: ASPIRIN CHEWABLE 81 MG TABLET. PO SCH (09:00)
[2018-07-03] MEDS: ENOXAPARIN 40 MG/0.4 ML SYRINGE. SQ SCH (09:00)
[2018-07-03] MEDS: levETIRAcetam 750 MG in IV DEXTROSE 5% 100ML 100 ML IV SCH (09:35)
--- NOTE | 2018-07-03 11:19 | PDOC ---
PROGRESS NOTES History of Present Illness History of Present Illness Assessment/Plan Assessment/Plan IMPRESSION IMPRESSION: tremors ///POSSIBLE SEIZURE, NOW LOW ON DIFFERENTIAL No acute intracranial finding. Note is made that MRI is more sensitive for acute infarction. Metallic density projects over the floor of the left maxillary sinus. No definite orbital foreign body is seen. Decreased attenuation within the cerebral white matter, likely due to chronic small vessel disease. Cerebral atrophy. ELEVATED TROPONIN I PLAN LP Cardiac monitoring Serial Enzymes Serial EKGs Home meds Neurology consult IV ATIVAN PRN SEIZURE ACTIVITY DVT PROPHYLAXIS CARDIOLOGY CONSULT seizure precautions mri on hold TB TEST ID CONSULT 39 min pt exam, chart review,> 50% of time with pt exam, chart review, pt care coordination Vitals Vitals Vital Signs Date Time Temp Pulse Resp B/P (MAP) Pulse Ox O2 Delivery O2 Flow Rate FiO2 07/03/18 08:00 Nasal Cannula 2.0 07/03/18 07:00 97.4 72 18 169/82 (111) 99 97.4 Physical Exam General: Cooperative, mild distress, Other (ENCEPHALOPATHIC) Heart: Regular rate (SR), Normal S1, Normal S2, No murmurs, Other (2/6 systolic murmur to LLS border) Lungs: Clear Abdomen: Soft, No hepatosplenomegaly Extremities: No cyanosis, Other (INVOLUNTARY LEFT ARM MOVEMENTS) Skin: No breakdown Labs LABS PATIENT: ZAMZAM DUENAS ACCT: [id number] LOC: [address] [place] [address] U : [id number] AGE/SX: 63/M ROOM: 256 REG : 07/02/[address]: LINDA ECHEVARRIA MD : 1955 BED: 1 DIS : STATUS: ADM IN TLOC: SPEC #: [id number] SHAUNA: 07/02/18 STATUS: RES COLIN #: [id number] RECD: 07/02/18-1616 [facility] DR: LINDA ECHEVARRIA MD SOURCE: BLOOD ENTR: 07/02/18-[address]: HU SOTRY [facility] NICOL[facility]S CAMPOS MD UNKNOWN PCP NAME ORDERED: BCULT Procedure Result BLOOD CULTURE Preliminary NO GROWTH AFTER 1 DAY Laboratory Tests Test 07/02/18 11:20 07/02/18 12:24 07/02/18 15:12 07/02/18 16:00 Influenza Type A Antigen Negative (NEGATIVE) Influenza Type B Antigen Negative (NEGATIVE) Urine Collection Type Unknown Urine Color Yellow Urine Clarity Clear Urine pH 7.0 Urine Specific Gilman 1.025 Urine Protein 100 mg/dL (NEG-TRACE) Urine Glucose (UA) Negative mg/dL (NEG) Urine Ketones (Stick) Negative mg/dL (NEG) Urine Blood Small (NEG) Urine Nitrite Negative (NEG) Urine Bilirubin Negative (NEG) Urine Urobilinogen Dipstick 0.2 mg/dL (0.2 mg/dL) Urine Leukocyte Esterase Negative (NEG) Urine RBC 20-40 /HPF (0-2) Urine WBC Occ /HPF (0-4) Urine Squamous Epithelial Cells Few /LPF Urine Bacteria 0 /HPF (0-FEW) Urine Mucus Slight /LPF Urine Opiates Screen Neg (NEG) Urine Methadone Screen Neg (NEG) Urine Barbiturates Neg (NEG) Urine Phencyclidine Screen Neg (NEG) Urine Amphetamine/Methamphetamine Neg (NEG) Urine Benzodiazepines Screen Neg (NEG) Urine Cocaine Screen Neg (NEG) Urine Cannabinoids Screen Neg (NEG) Urine Ethyl Alcohol Neg (NEG) Glucose (Fingerstick) 115 mg/dL (70-99) Potassium Level 5.0 mmol/L (3.5-5.1) Troponin I Quantitative 0.159 ng/mL (0.000-0.055) Test 07/02/18 20:55 07/03/18 04:45 Troponin I Quantitative 0.130 ng/mL (0.000-0.055) White Blood Count 10.7 x10^3/uL (4.0-11.0) Red Blood Count 5.62 x10^6/uL (4.30-5.70) Hemoglobin 13.6 g/dL (13.0-17.5) Hematocrit 42.9 % (39.0-53.0) Mean Corpuscular Volume 76 fL (79-100) Mean Corpuscular Hemoglobin 24 pg (25-35) Mean Corpuscular Hemoglobin Concent 32 g/dL (31-37) Red Cell Distribution Width 15.1 % (11.5-14.5) Platelet Count 184 x10^3/uL (140-400) Neutrophils (%) (Auto) 74 % (31-73) Lymphocytes (%) (Auto) 16 % (24-48) Monocytes (%) (Auto) 8 % (0-9) Eosinophils (%) (Auto) 1 % (0-3) Basophils (%) (Auto) 0 % (0-3) Neutrophils # (Auto) 8.0 x10^3uL (1.8-7.7) Lymphocytes # (Auto) 1.8 x10^3/uL (1.0-4.8) Monocytes # (Auto) 0.8 x10^3/uL (0.0-1.1) Eosinophils # (Auto) 0.1 x10^3/uL (0.0-0.7) Basophils # (Auto) 0.0 x10^3/uL (0.0-0.2) Sodium Level 139 mmol/L (136-145) Potassium Level 5.0 mmol/L (3.5-5.1) Chloride Level 104 mmol/L (98-107) Carbon Dioxide Level 27 mmol/L (21-32) Anion Gap 8 (6-14) Blood Urea Nitrogen 18 mg/dL (8-26) Creatinine 1.0 mg/dL (0.7-1.3) Estimated GFR (Cockcroft-Gault) 75.5 Glucose Level 120 mg/dL (70-99) Calcium Level 9.3 mg/dL (8.5-10.1) Assessment and Plan Assessmemt and Plan Problems Medical Problems: (1) Elevated troponin Status: Acute (2) Tremor Status: Acute Comment Review of Relevant I have reviewed the following items kendrick (where applicable) has been applied. Labs Laboratory Tests Test 07/02/18 09:23 07/02/18 10:00 07/02/18 11:10 07/02/18 11:20 Glucose (Fingerstick) 151 mg/dL (70-99) White Blood Count 9.9 x10^3/uL (4.0-11.0) Red Blood Count 6.05 x10^6/uL (4.30-5.70) Hemoglobin 15.0 g/dL (13.0-17.5) Hematocrit 46.3 % (39.0-53.0) Mean Corpuscular Volume 77 fL (79-100) Mean Corpuscular Hemoglobin 25 pg (25-35) Mean Corpuscular Hemoglobin Concent 32 g/dL (31-37) Red Cell Distribution Width 15.1 % (11.5-14.5) Platelet Count 198 x10^3/uL (140-400) Neutrophils (%) (Auto) 76 % (31-73) Lymphocytes (%) (Auto) 15 % (24-48) Monocytes (%) (Auto) 5 % (0-9) Eosinophils (%) (Auto) 4 % (0-3) Basophils (%) (Auto) 1 % (0-3) Neutrophils # (Auto) 7.5 x10^3uL (1.8-7.7) Lymphocytes # (Auto) 1.5 x10^3/uL (1.0-4.8) Monocytes # (Auto) 0.5 x10^3/uL (0.0-1.1) Eosinophils # (Auto) 0.3 x10^3/uL (0.0-0.7) Basophils # (Auto) 0.1 x10^3/uL (0.0-0.2) Triglycerides Level 55 mg/dL (0-150) Cholesterol Level 152 mg/dL (0-200) LDL Cholesterol, Calculated 88 mg/dL (0-100) VLDL Cholesterol, Calculated 11 mg/dL (0-40) Non-HDL Cholesterol Calculated 99 mg/dL (0-129) HDL Cholesterol 53 mg/dL (40-60) Cholesterol/HDL Ratio 2.9 Sodium Level 140 mmol/L (136-145) Potassium Level 5.5 mmol/L (3.5-5.1) Chloride Level 104 mmol/L (98-107) Carbon Dioxide Level 30 mmol/L (21-32) Anion Gap 6 (6-14) Blood Urea Nitrogen 22 mg/dL (8-26) Creatinine 1.1 mg/dL (0.7-1.3) Estimated GFR (Cockcroft-Gault) 67.6 BUN/Creatinine Ratio 20 (6-20) Glucose Level 126 mg/dL (70-99) Calcium Level 8.9 mg/dL (8.5-10.1) Total Bilirubin 0.6 mg/dL (0.2-1.0) Aspartate Amino Transf (AST/SGOT) 28 U/L (15-37) Alanine Aminotransferase (ALT/SGPT) 29 U/L (16-63) Alkaline Phosphatase 98 U/L (46-116) Creatine Kinase 89 U/L (39-308) Creatine Kinase MB (Mass) 1.5 ng/mL (0.0-3.6) Creatine Kinase MB Relative Index 1.7 % (0-4) Troponin I Quantitative 0.163 ng/mL (0.000-0.055) Total Protein 8.4 g/dL (6.4-8.2) Albumin 3.6 g/dL (3.4-5.0) Albumin/Globulin Ratio 0.8 (1.0-1.7) Ethyl Alcohol Level < 10 mg/dL (0-10) Influenza Type A Antigen Negative (NEGATIVE) Influenza Type B Antigen Negative (NEGATIVE) Test 07/02/18 12:24 07/02/18 15:12 07/02/18 16:00 07/02/18 20:55 Urine Collection Type Unknown Urine Color Yellow Urine Clarity Clear Urine pH 7.0 Urine Specific Gilman 1.025 Urine Protein 100 mg/dL (NEG-TRACE) Urine Glucose (UA) Negative mg/dL (NEG) Urine Ketones (Stick) Negative mg/dL (NEG) Urine Blood Small (NEG) Urine Nitrite Negative (NEG) Urine Bilirubin Negative (NEG) Urine Urobilinogen Dipstick 0.2 mg/dL (0.2 mg/dL) Urine Leukocyte Esterase Negative (NEG) Urine RBC 20-40 /HPF (0-2) Urine WBC Occ /HPF (0-4) Urine Squamous Epithelial Cells Few /LPF Urine Bacteria 0 /HPF (0-FEW) Urine Mucus Slight /LPF Urine Opiates Screen Neg (NEG) Urine Methadone Screen Neg (NEG) Urine Barbiturates Neg (NEG) Urine Phencyclidine Screen Neg (NEG) Urine Amphetamine/Methamphetamine Neg (NEG) Urine Benzodiazepines Screen Neg (NEG) Urine Cocaine Screen Neg (NEG) Urine Cannabinoids Screen Neg (NEG) Urine Ethyl Alcohol Neg (NEG) Glucose (Fingerstick) 115 mg/dL (70-99) Potassium Level 5.0 mmol/L (3.5-5.1) Troponin I Quantitative 0.159 ng/mL (0.000-0.055) 0.130 ng/mL (0.000-0.055) Test 07/03/18 04:45 White Blood Count 10.7 x10^3/uL (4.0-11.0) Red Blood Count 5.62 x10^6/uL (4.30-5.70) Hemoglobin 13.6 g/dL (13.0-17.5) Hematocrit 42.9 % (39.0-53.0) Mean Corpuscular Volume 76 fL (79-100) Mean Corpuscular Hemoglobin 24 pg (25-35) Mean Corpuscular Hemoglobin Concent 32 g/dL (31-37) Red Cell Distribution Width 15.1 % (11.5-14.5) Platelet Count 184 x10^3/uL (140-400) Neutrophils (%) (Auto) 74 % (31-73) Lymphocytes (%) (Auto) 16 % (24-48) Monocytes (%) (Auto) 8 % (0-9) Eosinophils (%) (Auto) 1 % (0-3) Basophils (%) (Auto) 0 % (0-3) Neutrophils # (Auto) 8.0 x10^3uL (1.8-7.7) Lymphocytes # (Auto) 1.8 x10^3/uL (1.0-4.8) Monocytes # (Auto) 0.8 x10^3/uL (0.0-1.1) Eosinophils # (Auto) 0.1 x10^3/uL (0.0-0.7) Basophils # (Auto) 0.0 x10^3/uL (0.0-0.2) Sodium Level 139 mmol/L (136-145) Potassium Level 5.0 mmol/L (3.5-5.1) Chloride Level 104 mmol/L (98-107) Carbon Dioxide Level 27 mmol/L (21-32) Anion Gap 8 (6-14) Blood Urea Nitrogen 18 mg/dL (8-26) Creatinine 1.0 mg/dL (0.7-1.3) Estimated GFR (Cockcroft-Gault) 75.5 Glucose Level 120 mg/dL (70-99) Calcium Level 9.3 mg/dL (8.5-10.1) Laboratory Tests Test 07/02/18 11:20 07/02/18 12:24 07/02/18 15:12 07/02/18 16:00 Influenza Type A Antigen Negative (NEGATIVE) Influenza Type B Antigen Negative (NEGATIVE) Urine Collection Type Unknown Urine Color Yellow Urine Clarity Clear Urine pH 7.0 Urine Specific Gilman 1.025 Urine Protein 100 mg/dL (NEG-TRACE) Urine Glucose (UA) Negative mg/dL (NEG) Urine Ketones (Stick) Negative mg/dL (NEG) Urine Blood Small (NEG) Urine Nitrite Negative (NEG) Urine Bilirubin Negative (NEG) Urine Urobilinogen Dipstick 0.2 mg/dL (0.2 mg/dL) Urine Leukocyte Esterase Negative (NEG) Urine RBC 20-40 /HPF (0-2) Urine WBC Occ /HPF (0-4) Urine Squamous Epithelial Cells Few /LPF Urine Bacteria 0 /HPF (0-FEW) Urine Mucus Slight /LPF Urine Opiates Screen Neg (NEG) Urine Methadone Screen Neg (NEG) Urine Barbiturates Neg (NEG) Urine Phencyclidine Screen Neg (NEG) Urine Amphetamine/Methamphetamine Neg (NEG) Urine Benzodiazepines Screen Neg (NEG) Urine Cocaine Screen Neg (NEG) Urine Cannabinoids Screen Neg (NEG) Urine Ethyl Alcohol Neg (NEG) Glucose (Fingerstick) 115 mg/dL (70-99) Potassium Level 5.0 mmol/L (3.5-5.1) Troponin I Quantitative 0.159 ng/mL (0.000-0.055) Test 07/02/18 20:55 07/03/18 04:45 Troponin I Quantitative 0.130 ng/mL (0.000-0.055) White Blood Count 10.7 x10^3/uL (4.0-11.0) Red Blood Count 5.62 x10^6/uL (4.30-5.70) Hemoglobin 13.6 g/dL (13.0-17.5) Hematocrit 42.9 % (39.0-53.0) Mean Corpuscular Volume 76 fL (79-100) Mean Corpuscular Hemoglobin 24 pg (25-35) Mean Corpuscular Hemoglobin Concent 32 g/dL (31-37) Red Cell Distribution Width 15.1 % (11.5-14.5) Platelet Count 184 x10^3/uL (140-400) Neutrophils (%) (Auto) 74 % (31-73) Lymphocytes (%) (Auto) 16 % (24-48) Monocytes (%) (Auto) 8 % (0-9) Eosinophils (%) (Auto) 1 % (0-3) Basophils (%) (Auto) 0 % (0-3) Neutrophils # (Auto) 8.0 x10^3uL (1.8-7.7) Lymphocytes # (Auto) 1.8 x10^3/uL (1.0-4.8) Monocytes # (Auto) 0.8 x10^3/uL (0.0-1.1) Eosinophils # (Auto) 0.1 x10^3/uL (0.0-0.7) Basophils # (Auto) 0.0 x10^3/uL (0.0-0.2) Sodium Level 139 mmol/L (136-145) Potassium Level 5.0 mmol/L (3.5-5.1) Chloride Level 104 mmol/L (98-107) Carbon Dioxide Level 27 mmol/L (21-32) Anion Gap 8 (6-14) Blood Urea Nitrogen 18 mg/dL (8-26) Creatinine 1.0 mg/dL (0.7-1.3) Estimated GFR (Cockcroft-Gault) 75.5 Glucose Level 120 mg/dL (70-99) Calcium Level 9.3 mg/dL (8.5-10.1) Medications Current Medications Sodium Chloride 1,000 ml @ 1,000 mls/hr 1X ONCE IV Last administered on at 10:00; Start 07/02/18 at 10:00; Stop 07/02/18 at 10:59; Status DC Lorazepam (Ativan) 0.5 mg 1X ONCE IV Last administered on 07/02/18at 12:12; Start 07/02/18 at 12:30; Stop 07/02/18 at 12:31; Status DC Aspirin (Children'S Aspirin) 324 mg 1X ONCE PO Last administered on 07/02/18at 13:18; Start 07/02/18 at 13:30; Stop 07/02/18 at 13:31; Status DC Acetaminophen (Tylenol) 650 mg PRN Q4HRS PRN PO FEVER; Start 07/02/18 at 14:30 ; Stop 07/02/18 at 18:38; Status DC Lorazepam (Ativan) 2 mg PRN Q4HRS PRN IV ANXIETY / AGITATION Last administered on 07/02/18at 17:58; Start 07/02/18 at 15:30 Levetiracetam 750 mg/Dextrose 107.5 ml @ 420 mls/hr Q12HR IV Last administered on 07/03/18at 09:35; Start 07/02/18 at 16:30 Sodium Chloride (Normal Saline Flush 3ml) 3 ml QSHIFT PRN IV AFTER MEDS AND BLOOD DRAWS; Start 07/02/18 at 15:45 Sodium Chloride 1,000 ml @ 100 mls/hr Q10H IV Last administered on 07/02/18at 16:04; Start 07/02/18 at 16:30 Ondansetron HCl (Zofran) 4 mg PRN Q4HRS PRN IV NAUSEA/VOMITING; Start 07/02/18 at 15:45 Zolpidem Tartrate (Ambien) 5 mg PRN QHS PRN PO INSOMNIA; Start 07/02/18 at 15: 45 Acetaminophen (Tylenol) 650 mg PRN Q4HRS PRN PO TEMP OVER 100.4F OR MILD PAIN; Start 07/02/18 at 15:45 Al Hydroxide/Mg Hydroxide (Mylanta Plus Xs) 30 ml PRN DAILY PRN PO HEARTBURN / GAS; Start 07/02/18 at 15:45 Clonidine HCl (Catapres) 0.1 mg PRN Q6HRS PRN PO SBP>160 OR DBP>90; Start 07/02 at 15:45 Sodium Monofluorophosphate (Fleet Adult) 133 ml PRN DAILY PRN VA CONSTIPATION; Start 07/02/18 at 15:45 Diphenhydramine HCl (Benadryl) 25 mg PRN Q4HRS PRN IVP ITCHING; Start 07/02/18 at 15:45 Docusate Sodium (Colace) 100 mg PRN BID PRN PO CONSTIPATION; Start 07/02/18 at 15:45 Albuterol Sulfate (Ventolin Neb Soln) 2.5 mg PRN Q4HRS PRN NEB SHORTNESS OF BREATH; Start 07/02/18 at 15:45 Guaifenesin (Robitussin) 200 mg PRN Q4HRS PRN PO COUGH; Start 07/02/18 at 15:45 Lorazepam (Ativan) 0.5 mg PRN Q4HRS PRN PO ANXIETY / AGITATION; Start 07/02/18 at 15:45 Enoxaparin Sodium (Lovenox 40mg Syringe) 40 mg DAILY SQ ; Start 07/03/18 at 09: 00 Hydralazine HCl (Apresoline Inj) 10 mg PRN Q4HRS PRN IVP ELEVATED BP, SEE COMMENTS; Start 07/02/18 at 16:45 Nitroglycerin (Nitro-Bid Oint) 0.5 inch Q6HRS TP Last administered on at 05:20; Start 07/02/18 at 17:30 Aspirin (Children'S Aspirin) 81 mg DAILY PO ; Start 07/03/18 at 09:00 Lorazepam (Ativan) 2 mg PRN Q4HRS PRN IV ALCOHOL WITHDRAWAL; Start 07/02/18 at 18:30 Active Scripts Active Reported Zithromax (Azithromycin) 500 Mg Tablet 1 Tab PO DAILY Aspirin 81 Mg Tab.chew 81 Mg PO DAILY Hydrocodone-Apap 5-325 (Hydrocodone Bit/Acetaminophen) 1 Tab Tablet 1 Tab PO PRN Q6HRS PRN Vitals/I & O Vital Sign - Last 24 Hours 07/02/18 07/02/18 07/02/18 07/02/18 11:25 12:25 12:55 13:25 Pulse 92 86 78 80 Resp 16 20 16 20 B/P (MAP) 214/112 (146) 198/81 (120) 182/80 (114) 207/85 (125) Pulse Ox 99 96 96 95 O2 Delivery Room Air Room Air Room Air Room Air 07/02/18 07/02/18 07/02/18 07/02/18 15:00 15:00 19:15 20:00 Temp 98.6 98.0 98.6 98.0 Pulse 97 62 Resp 22 19 B/P (MAP) 168/81 (110) 154/67 (96) Pulse Ox 99 100 O2 Delivery Room Air Nasal Cannula O2 Flow Rate 2.0 2.0 2.0 07/02/18 07/02/18 07/02/18 07/03/18 20:11 21:16 23:25 00:20 Temp 98.1 98.1 Pulse 62 52 52 Resp 18 B/P (MAP) 154/67 153/67 (95) 153/67 Pulse Ox 100 93 O2 Delivery Nasal Cannula Nasal Cannula O2 Flow Rate 2.5 2.0 07/03/18 07/03/18 07/03/18 07/03/18 03:25 05:20 07:00 08:00 Temp 98.0 97.4 98.0 97.4 Pulse 62 62 72 Resp 18 18 B/P (MAP) 167/77 (107) 167/77 169/82 (111) Pulse Ox 98 99 O2 Delivery Nasal Cannula Nasal Cannula Nasal Cannula O2 Flow Rate 2.0 2.0 2.0 Intake and Output 07/02/18 07/02/18 07/03/18 15:00 23:00 07:00 Intake Total 1000 ml 0 ml Balance 1000 ml 0 ml LINDA ECHEVARRIA MD Jul 03, 2018 11:19
--- NOTE | 2018-07-03 13:20 | NUR ---
SS following for discharge planning. SS reviewed pt chart. Pt is self pay pt. Pt is from home and is currently on requiring oxygen. No discharge needs noted at this time. HCFS following. SS will continue to follow for discharge planning.
--- NOTE | 2018-07-03 13:57 | CARD ---
MR#: [id number] Date of Study: 07/03/2018 Ordering Physician: BETTY PINA, Referring Physician: LINDA ECHEVARRIA, Tech: Staci Lara APPROVED REPORT EXAM: Two-dimensional and M-mode echocardiogram with Doppler and color Doppler. Other Information Quality : AverageHR: 60bpm INDICATION Elevated Troponin 2D DIMENSIONS RVDd1.9 (2.9-3.5cm)Left Atrium(2D)2.1 (1.6-4.0cm) IVSd1.0 (0.7-1.1cm)Aortic Root(2D)2.9 (2.0-3.7cm) LVDd4.3 (3.9-5.9cm)LVOT Diameter2.1 (1.8-2.4cm) PWd1.0 (0.7-1.1cm)LVDs1.9 (2.5-4.0cm) FS (%) 54.4 %SV69.6 ml LVEF(%)85.5 (>50%) Aortic Valve AoV Peak Caleb.125.5cm/Sadie Peak GR.6.3mmHg LEFT VENTRICLE The left ventricle is normal size. There is normal left ventricular wall thickness. The left ventricu lar systolic function is normal. The Ejection Fraction is 60%. There is normal LV segmental wall amol on. RIGHT VENTRICLE The right ventricle is normal size. There is normal right ventricular wall thickness. The right ventr icular systolic function is normal. ATRIA The left atrium size is normal. The right atrium size is normal. The interatrial septum is intact wit h no evidence for an atrial septal defect or patent foramen ovale as noted on 2-D or Doppler imaging. AORTIC VALVE The aortic valve is normal in structure and function. Doppler and Color Flow revealed no significant aortic regurgitation. There is no significant aortic valvular stenosis. MITRAL VALVE The mitral valve is normal in structure and function. There is no evidence of mitral valve prolapse. There is no mitral valve stenosis. Doppler and Color Flow revealed no mitral valve regurgitation note d. TRICUSPID VALVE The tricuspid valve is not well visualized. There is no tricuspid valve stenosis. PULMONIC VALVE The pulmonic valve is not well visualized. Doppler and Color Flow revealed no pulmonic valvular regur gitation. GREAT VESSELS The aortic root is normal in size. The IVC is normal in size and collapses >50% with inspiration. PERICARDIAL EFFUSION There is no evidence of significant pericardial effusion. Critical Notification Critical Value: No <Conclusion> Limited echo to assess LV function and wall motion abnormalities. The left ventricular systolic function is normal. The Ejection Fraction is 60%. There is normal LV segmental wall motion. There is no evidence of significant pericardial effusion. Signed by : Daniel Medellin, Electronically Approved : 07/03/2018 13:56:58
--- NOTE | 2018-07-03 14:06 | PDOC2 ---
NEUROLOGY CONSULT Date of Admission Date of Admission DATE: 07/03/18 TIME: 13:51 Reason for Consult Reason for Consult: NEUROLOGY CONSULTATION 07-02-2018 IMPRESSION: Status epilepticus. Complex focal seizure went status epilepticus on 07/02/16. Metabolic encephalopathy. Hypertensive encephalopathy. Hypertensive emergency, BP 214/112 mmHg. Disorientation. Confusion. HTN, poorly controlled. DM. PVD. Smoking. RECOMMENDATIONS/PLAN: Ativan 2 mg IV, Stat. Then q4h PRN for seizure. Keppra 750 mg IV q12h. Brain MRI was unable to perform on him due to metallic projects at the floor of the left maxillary sinus. Treat medical diseases. BP control. EEG. Lab: see orders. HISTORY OF THE PRESENT ILLNESS: This is a 63-y-old descent male patient admitted due to noted altered mental state changes with abnormal movements in left side. Per staff, girlfriend mentioned noting him to be disoriented and EMS was called. He speaks Urdu. He was noted with abnormal movements while on floor he was noted with seizure episodes. No seizure history reported by his girlfriend. No noted complains of any CP SOA leading to this event. No known hx of CAD but noted previously with PAD. It does not appear that he takes medications. PAST MEDICAL HISTORY Cardiovascular: PAD; hx of asymptomatic SB. GI: GERD PAST SURGICAL HISTORY Left nephrectomy. FAMILY HISTORY Unknown SOCIAL HISTORY Smoke: <1 pack per day Lives: With friends ALLERGY: Unknown MEDICATIONS: Refer to MAR REVIEW OF SYSTEMS: Constitutional: No malnutrition, cachexia. Head: No traumatic brain or head injury. Skin: No edema, or rash. Ear: No infection. Eyes: No vision loss or color blindness. Nose: No bleeding or purulent discharges. Hearing: No hearing decrease. Neck: No injury. Cardiac: HTN. Pulmonary: Smoking. GI: No GI ulcer, GI bleeding. Urinary/genital: No dysuria, incontinence, urinary retention. Endocrinologic: Diabetes Mellitus. Skeletomuscular: No muscular atrophy. Neurological: see HP. Psychiatric: Denies drug use/abuse. Otherwise, not -urmet review of systems. PHYSICAL EXAMINATION: General appearance is in acute distress. HEENT: Normocephalic and nontraumatic. Eyes, nose, ears, and throat are unremarkable. Neck is supple. No lymphadenopathy. No crepitus. Cardiovascular: S1, S2, regular rate and rhythm. Pulmonary: No rales heard. Abdomen: Bowel sounds are positive. Extremities: No rash, lesions, or edema. No restriction of range of motion NEUROLOGICAL EXAMINATION: Unresponsive. In status epilepticus. Left side continued twitching movements. Continued left UE shaking movements. Not oriented to time, place and person. PERRL. EOMI not elicited. CN: no acute focal findings. Muscle tone: stiffness. Muscle strength: moves right side to stimuli. DTR: 1-2 Plantar reflex: Neutral response bilaterally Gait: not examined in bed. Sensory exam: no abnormal findings. Not able to access cerebellar signs. F-T-N test not performed in unresponsive state. Current Medications Current Medications Current Medications Sodium Chloride 1,000 ml @ 1,000 mls/hr 1X ONCE IV Last administered on at 10:00; Start 07/02/18 at 10:00; Stop 07/02/18 at 10:59; Status DC Lorazepam (Ativan) 0.5 mg 1X ONCE IV Last administered on 07/02/18at 12:12; Start 07/02/18 at 12:30; Stop 07/02/18 at 12:31; Status DC Aspirin (Children'S Aspirin) 324 mg 1X ONCE PO Last administered on 07/02/18at 13:18; Start 07/02/18 at 13:30; Stop 07/02/18 at 13:31; Status DC Acetaminophen (Tylenol) 650 mg PRN Q4HRS PRN PO FEVER; Start 07/02/18 at 14:30 ; Stop 07/02/18 at 18:38; Status DC Lorazepam (Ativan) 2 mg PRN Q4HRS PRN IV ANXIETY / AGITATION Last administered on 07/02/18at 17:58; Start 07/02/18 at 15:30 Levetiracetam 750 mg/Dextrose 107.5 ml @ 420 mls/hr Q12HR IV Last administered on 07/03/18at 09:35; Start 07/02/18 at 16:30 Sodium Chloride (Normal Saline Flush 3ml) 3 ml QSHIFT PRN IV AFTER MEDS AND BLOOD DRAWS; Start 07/02/18 at 15:45 Sodium Chloride 1,000 ml @ 100 mls/hr Q10H IV Last administered on 07/02/18at 16:04; Start 07/02/18 at 16:30 Ondansetron HCl (Zofran) 4 mg PRN Q4HRS PRN IV NAUSEA/VOMITING; Start 07/02/18 at 15:45 Zolpidem Tartrate (Ambien) 5 mg PRN QHS PRN PO INSOMNIA; Start 07/02/18 at 15: 45 Acetaminophen (Tylenol) 650 mg PRN Q4HRS PRN PO TEMP OVER 100.4F OR MILD PAIN; Start 07/02/18 at 15:45 Al Hydroxide/Mg Hydroxide (Mylanta Plus Xs) 30 ml PRN DAILY PRN PO HEARTBURN / GAS; Start 07/02/18 at 15:45 Clonidine HCl (Catapres) 0.1 mg PRN Q6HRS PRN PO SBP>160 OR DBP>90; Start 07/02 at 15:45 Sodium Monofluorophosphate (Fleet Adult) 133 ml PRN DAILY PRN [place] CONSTIPATION; Start 07/02/18 at 15:45 Diphenhydramine HCl (Benadryl) 25 mg PRN Q4HRS PRN IVP ITCHING; Start 07/02/18 at 15:45 Docusate Sodium (Colace) 100 mg PRN BID PRN PO CONSTIPATION; Start 07/02/18 at 15:45 Albuterol Sulfate (Ventolin Neb Soln) 2.5 mg PRN Q4HRS PRN NEB SHORTNESS OF BREATH; Start 07/02/18 at 15:45 Guaifenesin (Robitussin) 200 mg PRN Q4HRS PRN PO COUGH; Start 07/02/18 at 15:45 Lorazepam (Ativan) 0.5 mg PRN Q4HRS PRN PO ANXIETY / AGITATION; Start 07/02/18 at 15:45 Enoxaparin Sodium (Lovenox 40mg Syringe) 40 mg DAILY SQ ; Start 07/03/18 at 09: 00 Hydralazine HCl (Apresoline Inj) 10 mg PRN Q4HRS PRN IVP ELEVATED BP, SEE COMMENTS; Start 07/02/18 at 16:45 Nitroglycerin (Nitro-Bid Oint) 0.5 inch Q6HRS TP Last administered on at 05:20; Start 07/02/18 at 17:30 Aspirin (Children'S Aspirin) 81 mg DAILY PO ; Start 07/03/18 at 09:00 Lorazepam (Ativan) 2 mg PRN Q4HRS PRN IV ALCOHOL WITHDRAWAL; Start 07/02/18 at 18:30 Active Scripts Active Reported Zithromax (Azithromycin) 500 Mg Tablet 1 Tab PO DAILY Aspirin 81 Mg Tab.chew 81 Mg PO DAILY Hydrocodone-Apap 5-325 (Hydrocodone Bit/Acetaminophen) 1 Tab Tablet 1 Tab PO PRN Q6HRS PRN Allergies Allergies: Allergies Coded Allergies Type Severity Reaction Last Updated Verified No Known Drug Allergies 03/25/18 No ROS Review of System The patient denies any associated fevers, chills, headache, ear pain, rhinorrhea , sore throat, stiff neck, productive cough, chest pain, shortness of breath, back or flank pain, abdominal pain, nausea, vomiting, diarrhea, constipation, dysuria, rash, numbness, weakness, tingling, incontinence, difficulty ambulating, or diaphoresis. Physical Exam Physical Exam General: Well developed, well nourished, no acute distress, well appearing HEENT: Pupils equally round and reactive to light, EOMI, no discharge, normal conjunctiva Neck: Supple, no nuchal rigidity, no JVD, trachea midline, no tenderness Cardiac: RRR, no murmurs, no gallops, no rubs Chest/Lungs: CTAB, no wheeze, no rhonchi, no crackles Abdomen: soft, non-distended, no guarding, no peritoneal signs, non-tender Back: No tenderness Extremities: no edema, pulses intact, non-tender,capillary refill <3 sec bilateral upper and lower extremities, Neuro: Alert and oriented x 4, no focal deficits, normal speech Vitals Vitals: Vital Signs Date Time Temp Pulse Resp B/P (MAP) Pulse Ox O2 Delivery O2 Flow Rate FiO2 07/03/18 11:00 97.8 68 18 137/64 (88) 99 Nasal Cannula 2.0 97.8 Labs Labs Laboratory Tests Test 07/02/18 09:23 07/02/18 10:00 07/02/18 11:10 07/02/18 11:20 Glucose (Fingerstick) 151 mg/dL (70-99) White Blood Count 9.9 x10^3/uL (4.0-11.0) Red Blood Count 6.05 x10^6/uL (4.30-5.70) Hemoglobin 15.0 g/dL (13.0-17.5) Hematocrit 46.3 % (39.0-53.0) Mean Corpuscular Volume 77 fL (79-100) Mean Corpuscular Hemoglobin 25 pg (25-35) Mean Corpuscular Hemoglobin Concent 32 g/dL (31-37) Red Cell Distribution Width 15.1 % (11.5-14.5) Platelet Count 198 x10^3/uL (140-400) Neutrophils (%) (Auto) 76 % (31-73) Lymphocytes (%) (Auto) 15 % (24-48) Monocytes (%) (Auto) 5 % (0-9) Eosinophils (%) (Auto) 4 % (0-3) Basophils (%) (Auto) 1 % (0-3) Neutrophils # (Auto) 7.5 x10^3uL (1.8-7.7) Lymphocytes # (Auto) 1.5 x10^3/uL (1.0-4.8) Monocytes # (Auto) 0.5 x10^3/uL (0.0-1.1) Eosinophils # (Auto) 0.3 x10^3/uL (0.0-0.7) Basophils # (Auto) 0.1 x10^3/uL (0.0-0.2) Triglycerides Level 55 mg/dL (0-150) Cholesterol Level 152 mg/dL (0-200) LDL Cholesterol, Calculated 88 mg/dL (0-100) VLDL Cholesterol, Calculated 11 mg/dL (0-40) Non-HDL Cholesterol Calculated 99 mg/dL (0-129) HDL Cholesterol 53 mg/dL (40-60) Cholesterol/HDL Ratio 2.9 Sodium Level 140 mmol/L (136-145) Potassium Level 5.5 mmol/L (3.5-5.1) Chloride Level 104 mmol/L (98-107) Carbon Dioxide Level 30 mmol/L (21-32) Anion Gap 6 (6-14) Blood Urea Nitrogen 22 mg/dL (8-26) Creatinine 1.1 mg/dL (0.7-1.3) Estimated GFR (Cockcroft-Gault) 67.6 BUN/Creatinine Ratio 20 (6-20) Glucose Level 126 mg/dL (70-99) Calcium Level 8.9 mg/dL (8.5-10.1) Total Bilirubin 0.6 mg/dL (0.2-1.0) Aspartate Amino Transf (AST/SGOT) 28 U/L (15-37) Alanine Aminotransferase (ALT/SGPT) 29 U/L (16-63) Alkaline Phosphatase 98 U/L (46-116) Creatine Kinase 89 U/L (39-308) Creatine Kinase MB (Mass) 1.5 ng/mL (0.0-3.6) Creatine Kinase MB Relative Index 1.7 % (0-4) Troponin I Quantitative 0.163 ng/mL (0.000-0.055) Total Protein 8.4 g/dL (6.4-8.2) Albumin 3.6 g/dL (3.4-5.0) Albumin/Globulin Ratio 0.8 (1.0-1.7) Ethyl Alcohol Level < 10 mg/dL (0-10) Influenza Type A Antigen Negative (NEGATIVE) Influenza Type B Antigen Negative (NEGATIVE) Test 07/02/18 12:24 07/02/18 15:12 07/02/18 16:00 07/02/18 20:55 Urine Collection Type Unknown Urine Color Yellow Urine Clarity Clear Urine pH 7.0 Urine Specific [place] 1.025 Urine Protein 100 mg/dL (NEG-TRACE) Urine Glucose (UA) Negative mg/dL (NEG) Urine Ketones (Stick) Negative mg/dL (NEG) Urine Blood Small (NEG) Urine Nitrite Negative (NEG) Urine Bilirubin Negative (NEG) Urine Urobilinogen Dipstick 0.2 mg/dL (0.2 mg/dL) Urine Leukocyte Esterase Negative (NEG) Urine RBC 20-40 /HPF (0-2) Urine WBC Occ /HPF (0-4) Urine Squamous Epithelial Cells Few /LPF Urine Bacteria 0 /HPF (0-FEW) Urine Mucus Slight /LPF Urine Opiates Screen Neg (NEG) Urine Methadone Screen Neg (NEG) Urine Barbiturates Neg (NEG) Urine Phencyclidine Screen Neg (NEG) Urine Amphetamine/Methamphetamine Neg (NEG) Urine Benzodiazepines Screen Neg (NEG) Urine Cocaine Screen Neg (NEG) Urine Cannabinoids Screen Neg (NEG) Urine Ethyl Alcohol Neg (NEG) Glucose (Fingerstick) 115 mg/dL (70-99) Potassium Level 5.0 mmol/L (3.5-5.1) Troponin I Quantitative 0.159 ng/mL (0.000-0.055) 0.130 ng/mL (0.000-0.055) Test 07/03/18 04:45 White Blood Count 10.7 x10^3/uL (4.0-11.0) Red Blood Count 5.62 x10^6/uL (4.30-5.70) Hemoglobin 13.6 g/dL (13.0-17.5) Hematocrit 42.9 % (39.0-53.0) Mean Corpuscular Volume 76 fL (79-100) Mean Corpuscular Hemoglobin 24 pg (25-35) Mean Corpuscular Hemoglobin Concent 32 g/dL (31-37) Red Cell Distribution Width 15.1 % (11.5-14.5) Platelet Count 184 x10^3/uL (140-400) Neutrophils (%) (Auto) 74 % (31-73) Lymphocytes (%) (Auto) 16 % (24-48) Monocytes (%) (Auto) 8 % (0-9) Eosinophils (%) (Auto) 1 % (0-3) Basophils (%) (Auto) 0 % (0-3) Neutrophils # (Auto) 8.0 x10^3uL (1.8-7.7) Lymphocytes # (Auto) 1.8 x10^3/uL (1.0-4.8) Monocytes # (Auto) 0.8 x10^3/uL (0.0-1.1) Eosinophils # (Auto) 0.1 x10^3/uL (0.0-0.7) Basophils # (Auto) 0.0 x10^3/uL (0.0-0.2) Sodium Level 139 mmol/L (136-145) Potassium Level 5.0 mmol/L (3.5-5.1) Chloride Level 104 mmol/L (98-107) Carbon Dioxide Level 27 mmol/L (21-32) Anion Gap 8 (6-14) Blood Urea Nitrogen 18 mg/dL (8-26) Creatinine 1.0 mg/dL (0.7-1.3) Estimated GFR (Cockcroft-Gault) 75.5 Glucose Level 120 mg/dL (70-99) Calcium Level 9.3 mg/dL (8.5-10.1) Laboratory Tests Test 07/02/18 15:12 07/02/18 16:00 07/02/18 20:55 07/03/18 04:45 Glucose (Fingerstick) 115 mg/dL (70-99) Potassium Level 5.0 mmol/L (3.5-5.1) 5.0 mmol/L (3.5-5.1) Troponin I Quantitative 0.159 ng/mL (0.000-0.055) 0.130 ng/mL (0.000-0.055) White Blood Count 10.7 x10^3/uL (4.0-11.0) Red Blood Count 5.62 x10^6/uL (4.30-5.70) Hemoglobin 13.6 g/dL (13.0-17.5) Hematocrit 42.9 % (39.0-53.0) Mean Corpuscular Volume 76 fL (79-100) Mean Corpuscular Hemoglobin 24 pg (25-35) Mean Corpuscular Hemoglobin Concent 32 g/dL (31-37) Red Cell Distribution Width 15.1 % (11.5-14.5) Platelet Count 184 x10^3/uL (140-400) Neutrophils (%) (Auto) 74 % (31-73) Lymphocytes (%) (Auto) 16 % (24-48) Monocytes (%) (Auto) 8 % (0-9) Eosinophils (%) (Auto) 1 % (0-3) Basophils (%) (Auto) 0 % (0-3) Neutrophils # (Auto) 8.0 x10^3uL (1.8-7.7) Lymphocytes # (Auto) 1.8 x10^3/uL (1.0-4.8) Monocytes # (Auto) 0.8 x10^3/uL (0.0-1.1) Eosinophils # (Auto) 0.1 x10^3/uL (0.0-0.7) Basophils # (Auto) 0.0 x10^3/uL (0.0-0.2) Sodium Level 139 mmol/L (136-145) Chloride Level 104 mmol/L (98-107) Carbon Dioxide Level 27 mmol/L (21-32) Anion Gap 8 (6-14) Blood Urea Nitrogen 18 mg/dL (8-26) Creatinine 1.0 mg/dL (0.7-1.3) Estimated GFR (Cockcroft-Gault) 75.5 Glucose Level 120 mg/dL (70-99) Calcium Level 9.3 mg/dL (8.5-10.1) NICOLÁS CAMPOS MD Jul 03, 2018 14:06
--- NOTE | 2018-07-03 14:15 | PDOC ---
PROGRESS NOTES Assessment Assessment Status epilepticus, controlled on 07/02/18. Complex focal seizure went status epilepticus on 07/02/16. Metabolic encephalopathy. Hypertensive encephalopathy. Hypertensive emergency, BP 214/112 mmHg. Disorientation. Confusion. Abnormal chorea like movements in left UE. HTN, poorly controlled. DM. PVD. Smoking. RECOMMENDATIONS/PLAN: Ativan 2 mg IV, Stat. Then q4h PRN for seizure. Keppra 750 mg IV q12h. Add Depakote 500 mg bid, plan to discontinue Keppra. Brain MRI was unable to perform on him due to metallic projects at the floor of the left maxillary sinus. Treat medical diseases. BP control. EEG. HISTORY OF THE PRESENT ILLNESS: This is a 63-y-old descent male patient admitted due to noted altered mental state changes with abnormal movements in left side. Per staff, girlfriend mentioned noting him to be disoriented and EMS was called. He speaks Kinyarwanda. He was noted with abnormal movements while on floor he was noted with seizure episodes. No seizure history reported by his girlfriend. No noted complains of any CP SOA leading to this event. No known hx of CAD but noted previously with PAD. It does not appear that he takes medications. Status epilepticus controlled after Ativan and Keppra administrations on 06/04/18 , but he has abnormal chorea like movements in his left UE. PAST MEDICAL HISTORY Cardiovascular: PAD; hx of asymptomatic SB. GI: GERD PAST SURGICAL HISTORY Left nephrectomy. FAMILY HISTORY Unknown SOCIAL HISTORY Smoke: <1 pack per day Lives: With friends ALLERGY: Unknown MEDICATIONS: Refer to MAR REVIEW OF SYSTEMS: Constitutional: No malnutrition, cachexia. Head: No traumatic brain or head injury. Skin: No edema, or rash. Ear: No infection. Eyes: No vision loss or color blindness. Nose: No bleeding or purulent discharges. Hearing: No hearing decrease. Neck: No injury. Cardiac: HTN. Pulmonary: Smoking. GI: No GI ulcer, GI bleeding. Urinary/genital: No dysuria, incontinence, urinary retention. Endocrinologic: Diabetes Mellitus. Skeletomuscular: No muscular atrophy. Neurological: see HP. Psychiatric: Denies drug use/abuse. Otherwise, not [id number] review of systems. PHYSICAL EXAMINATION: General appearance is in acute distress. HEENT: Normocephalic and nontraumatic. Eyes, nose, ears, and throat are unremarkable. Neck is supple. No lymphadenopathy. No crepitus. Cardiovascular: S1, S2, regular rate and rhythm. Pulmonary: No rales heard. Abdomen: Bowel sounds are positive. Extremities: No rash, lesions, or edema. No restriction of range of motion NEUROLOGICAL EXAMINATION: Sleepiness. Not oriented to time, place and person. PERRL. EOMI not elicited due to not follow commands nor speak much Sami. CN: no acute focal findings. Muscle tone: within normal. Muscle strength: 4 DTR: 3+. Plantar reflex: Neutral response bilaterally Gait: not examined in bed. Sensory exam: no acute abnormal findings. Not able to access cerebellar signs. F-T-N test not performed in unresponsive state. Objective Objective Vital Signs Date Time Temp Pulse Resp B/P (MAP) Pulse Ox O2 Delivery O2 Flow Rate FiO2 07/03/18 11:00 97.8 68 18 137/64 (88) 99 Nasal Cannula 2.0 97.8 Intake and Output 07/03/18 07:00 Intake Total 1000 ml Balance 1000 ml Intake Oral 0 ml IV Total 1000 ml # Voids 3 Vitals Signs Vitals VS - Last 72 Hours, by Label Date Time Temp Pulse Resp B/P (MAP) Pulse Ox O2 Delivery O2 Flow Rate FiO2 07/03/18 11:00 97.8 68 18 137/64 (88) 99 Nasal Cannula 2.0 97.8 07/03/18 08:00 Nasal Cannula 2.0 07/03/18 07:00 97.4 72 18 169/82 (111) 99 Nasal Cannula 2.0 97.4 07/03/18 05:20 62 167/77 07/03/18 03:25 98.0 62 18 167/77 (107) 98 Nasal Cannula 2.0 98.0 07/03/18 00:20 52 153/67 07/02/18 23:25 98.1 52 18 153/67 (95) 93 Nasal Cannula 2.0 98.1 07/02/18 21:16 62 154/67 07/02/18 20:11 100 Nasal Cannula 2.5 07/02/18 20:00 2.0 07/02/18 19:15 98.0 62 19 154/67 (96) 100 Nasal Cannula 2.0 98.0 3/26/19 15:00 2.0 07/02/18 15:00 98.6 97 22 168/81 (110) 99 Room Air 98.6 07/02/18 13:25 80 20 207/85 (125) 95 Room Air 07/02/18 12:55 78 16 182/80 (114) 96 Room Air 07/02/18 12:25 86 20 198/81 (120) 96 Room Air 07/02/18 11:25 92 16 214/112 (146) 99 Room Air 07/02/18 10:42 98.0 73 18 140/81 (100) 96 Room Air 98.0 Laboratory Laboratory Laboratory Tests Test 07/02/18 15:12 07/02/18 16:00 07/02/18 20:55 07/03/18 04:45 Glucose (Fingerstick) 115 mg/dL (70-99) Potassium Level 5.0 mmol/L (3.5-5.1) 5.0 mmol/L (3.5-5.1) Troponin I Quantitative 0.159 ng/mL (0.000-0.055) 0.130 ng/mL (0.000-0.055) White Blood Count 10.7 x10^3/uL (4.0-11.0) Red Blood Count 5.62 x10^6/uL (4.30-5.70) Hemoglobin 13.6 g/dL (13.0-17.5) Hematocrit 42.9 % (39.0-53.0) Mean Corpuscular Volume 76 fL (79-100) Mean Corpuscular Hemoglobin 24 pg (25-35) Mean Corpuscular Hemoglobin Concent 32 g/dL (31-37) Red Cell Distribution Width 15.1 % (11.5-14.5) Platelet Count 184 x10^3/uL (140-400) Neutrophils (%) (Auto) 74 % (31-73) Lymphocytes (%) (Auto) 16 % (24-48) Monocytes (%) (Auto) 8 % (0-9) Eosinophils (%) (Auto) 1 % (0-3) Basophils (%) (Auto) 0 % (0-3) Neutrophils # (Auto) 8.0 x10^3uL (1.8-7.7) Lymphocytes # (Auto) 1.8 x10^3/uL (1.0-4.8) Monocytes # (Auto) 0.8 x10^3/uL (0.0-1.1) Eosinophils # (Auto) 0.1 x10^3/uL (0.0-0.7) Basophils # (Auto) 0.0 x10^3/uL (0.0-0.2) Sodium Level 139 mmol/L (136-145) Chloride Level 104 mmol/L (98-107) Carbon Dioxide Level 27 mmol/L (21-32) Anion Gap 8 (6-14) Blood Urea Nitrogen 18 mg/dL (8-26) Creatinine 1.0 mg/dL (0.7-1.3) Estimated GFR (Cockcroft-Gault) 75.5 Glucose Level 120 mg/dL (70-99) Calcium Level 9.3 mg/dL (8.5-10.1) Medication Medications Current Medications Acetaminophen (Tylenol) 650 mg PRN Q4HRS PRN PO FEVER; Start 07/02/18 at 14:30 ; Stop 07/02/18 at 18:38; Status DC Acetaminophen (Tylenol) 650 mg PRN Q4HRS PRN PO TEMP OVER 100.4F OR MILD PAIN; Start 07/02/18 at 15:45 Al Hydroxide/Mg Hydroxide (Mylanta Plus Xs) 30 ml PRN DAILY PRN PO HEARTBURN / GAS; Start 07/02/18 at 15:45 Albuterol Sulfate (Ventolin Neb Soln) 2.5 mg PRN Q4HRS PRN NEB SHORTNESS OF BREATH; Start 07/02/18 at 15:45 Aspirin (Children'S Aspirin) 81 mg DAILY PO ; Start 07/03/18 at 09:00 Clonidine HCl (Catapres) 0.1 mg PRN Q6HRS PRN PO SBP>160 OR DBP>90; Start 07/02 at 15:45 Diphenhydramine HCl (Benadryl) 25 mg PRN Q4HRS PRN IVP ITCHING; Start 07/02/18 at 15:45 Docusate Sodium (Colace) 100 mg PRN BID PRN PO CONSTIPATION; Start 07/02/18 at 15:45 Enoxaparin Sodium (Lovenox 40mg Syringe) 40 mg DAILY SQ ; Start 07/03/18 at 09: 00 Guaifenesin (Robitussin) 200 mg PRN Q4HRS PRN PO COUGH; Start 07/02/18 at 15:45 Hydralazine HCl (Apresoline Inj) 10 mg PRN Q4HRS PRN IVP ELEVATED BP, SEE COMMENTS; Start 07/02/18 at 16:45 Levetiracetam 750 mg/Dextrose 107.5 ml @ 420 mls/hr Q12HR IV Last administered on 07/03/18at 09:35; Start 07/02/18 at 16:30 Lorazepam (Ativan) 0.5 mg PRN Q4HRS PRN PO ANXIETY / AGITATION; Start 07/02/18 at 15:45 Lorazepam (Ativan) 2 mg PRN Q4HRS PRN IV ANXIETY / AGITATION Last administered on 07/02/18at 17:58; Start 07/02/18 at 15:30 Lorazepam (Ativan) 2 mg PRN Q4HRS PRN IV ALCOHOL WITHDRAWAL; Start 07/02/18 at 18:30 Nitroglycerin (Nitro-Bid Oint) 0.5 inch Q6HRS TP Last administered on at 05:20; Start 07/02/18 at 17:30 Ondansetron HCl (Zofran) 4 mg PRN Q4HRS PRN IV NAUSEA/VOMITING; Start 07/02/18 at 15:45 Sodium Monofluorophosphate (Fleet Adult) 133 ml PRN DAILY PRN [place] CONSTIPATION; Start 07/02/18 at 15:45 Sodium Chloride 1,000 ml @ 100 mls/hr Q10H IV Last administered on 07/02/18at 16:04; Start 07/02/18 at 16:30 Sodium Chloride (Normal Saline Flush 3ml) 3 ml QSHIFT PRN IV AFTER MEDS AND BLOOD DRAWS; Start 07/02/18 at 15:45 Zolpidem Tartrate (Ambien) 5 mg PRN QHS PRN PO INSOMNIA; Start 07/02/18 at 15: 45 Comment Review of Relevant I have reviewed the following items kendrick (where applicable) has been applied. NICOLÁS CAMPOS MD Jul 03, 2018 14:15
[2018-07-03] MEDS ORDERED: VANCOMYCIN 1.5 GM in IV NORMAL SALINE 500ML BAG 500 ML IV ONE (15:00)
[2018-07-03] MEDS: ACYCLOVIR SODIUM 730 MG in IV DEXTROSE 5% 250 ML IV SCH ×2 (17:03→22:26)
[2018-07-03] MEDS: AMPICILLIN SODIUM 2 GM in IV NORMAL SALINE 100ML 100 ML IV SCH ×3 (17:03→23:32)
[2018-07-03] MEDS: CEFEPIME HCL IV Push 2 GM VIAL. IVP SCH ×2 (17:54→22:29)
[2018-07-03] MEDS: VANCOMYCIN PER PHARMACY MC PRN (19:03)
--- NOTE | 2018-07-03 19:07 | NUR ---
Pharmacy Vancomycin Dosing Note S:Consulted to monitor and dose vancomycin started 07/03/18. O:ZAMZAM DUENAS is a 63 year old M with Meningitis Height: 5 feet, 10 inches Weight: 61.7 kg Brea Body Weight: 73.00 Adjusted Body Weight: 68.48 Dosing Weight: Actual Other Antibiotics: Acyclovir, Ampicillin LABS: Last BUN: 18 Last Creatinine: 1 Creatinine Clearance: 66 mL/min Last WBC: 10.7 Last Procalcitonin: Tmax (past 24 hours): 98.6 Microbiology: Blood: NGTD I/O: 1000/- Last dose given 07/03/18 at 1754 Vancomycin Dosing: Loading Dose: 1500 mg x1 Dosing Weight: Actual Target Trough: 15-20 A: Based on: weight and renal function P: 1. Begin Vancomycin 1000 mg IV q12h 2. Follow up Trough level on 07/05/18 at 0530 3. Pharmacy will continue to monitor, follow and adjust therapy as needed. Keira Mcgraw [facility], 07/03/18 [id number]
[2018-07-03] MEDS: AMINO AC 3%/ELECTROLYTE/GLYCER 1,000 ML IV SCH (19:41)
[2018-07-03] MEDS: hydrALAZINE 20 MG/ML VIAL. IVP PRN (20:06)
[2018-07-03] MEDS: DIVALPROEX DELAYED RELEASE 500 MG TABLET.DR. PO SCH (21:00)
[2018-07-03] MEDS: levETIRAcetam 500 MG in IV DEXTROSE 5% 100ML 100 ML IV SCH (21:38)
--- NOTE | 2018-07-03 22:15 | EEG ---
DATE OF SERVICE: 07/03/2018 ELECTROENCEPHALOGRAM NUMBER: [id number]. OBJECTIVE: This is a 63-year-old male patient who had complex partial seizure went to status epilepticus on 07/02/2018, but that was controlled then. EEG was requested to evaluate seizure activity. METHODS: Twenty electrodes were applied according to the international 10-20 electrode placement system. EKG monitoring, hyperventilation, intermittent photic stimulation, monopolar and bipolar montages are routinely utilized. The record was obtained on a digital system with video monitoring. MEDICATIONS: Keppra and Ativan. FINDINGS: 1. Background: The patient was recorded in the awake, drowsy and sleep states. The overall background amplitude is asymmetric with high amplitude activity in the right hemispherical area. A posterior dominant rhythm of 8-9 Hz is observed from time to time in the left occipital region, but not in the right side. Diffuse slowing in the theta and delta frequencies throughout the entire recording in the right hemispherical area. 3. Abnormalities: No specific epileptiform discharge or electrographic seizure is seen. Asymmetric diffuse slowing in the right hemispherical area in the theta and delta frequencies throughout the entire recording. 4. Activation: Hyperventilation was not performed because the patient was unable to follow the commands. Intermittent photic stimulation was performed with photic driving. No specific epileptiform discharge or electrographic seizure induced by intermittent photic stimulation. IMPRESSION: This electroencephalogram is an abnormal study for the awake, drowsy and sleep states. There is no awake and sleep differentiation. Posterior dominant rhythm of 8-9 is observed from time to time in the left occipital region, but not in the right side. Diffuse slowing in the theta and delta frequencies in the right hemispherical area is throughout the entire recording. No specific epileptiform discharge or electrographic seizure is seen. This pattern of electroencephalogram may suggest underlying pathology in the right hemispherical area. NICOLÁS CAMPOS MD DR: [email or web address]/murali JOB#: [id number] / [id number] [place]
[2018-07-04 03:20] VITALS: BP 146/85
[2018-07-04] MEDS: AMPICILLIN SODIUM 2 GM in IV NORMAL SALINE 100ML 100 ML IV SCH ×4 (03:23→16:24)
[2018-07-04 04:10] LABS: BASO % 1 % (0-3); EOS # 0.2 x10^3/uL (0.0-0.7); EOS % 2 % (0-3); HEMOGLOBIN 13.5 g/dL (13.0-17.5); LYMPH # 1.1 x10^3/uL (1.0-4.8); LYMPH % 11 % (24-48); MEAN CORPUSCULAR HEMOGLOBIN 25 pg (25-35); MEAN CORPUSCULAR HGB CONC 33 g/dL (31-37); MEAN CORPUSCULAR VOLUME 76 fL (79-100); MONO % 9 % (0-9); NEUT % 77 % (31-73); PLATELET COUNT 186 x10^3/uL (140-400); RED BLOOD COUNT 5.43 x10^6/uL (4.30-5.70); RED CELL DISTRIBUTION WIDTH 14.6 % (11.5-14.5); WHITE BLOOD COUNT 10.4 x10^3/uL (4.0-11.0)
[2018-07-04 04:39] LABS: ALBUMIN/GLOBULIN RATIO 0.6 (1.0-1.7); CALCIUM 8.8 mg/dL (8.5-10.1); GFR 75.5; POTASSIUM 4.3 mmol/L (3.5-5.1); TOTAL BILIRUBIN 1.3 mg/dL (0.2-1.0); TOTAL PROTEIN 7.9 g/dL (6.4-8.2)
[2018-07-04] MEDS: CEFEPIME HCL IV Push 2 GM VIAL. IVP SCH ×2 (05:07→14:00)
[2018-07-04] MEDS: NITROGLYCERIN OINT 1 GM PACKET. TP SCH ×3 (05:07→18:07)
[2018-07-04] MEDS: ACYCLOVIR SODIUM 730 MG in IV DEXTROSE 5% 250 ML IV SCH (05:07)
--- NOTE | 2018-07-04 05:08 | CONS ---
DATE OF CONSULTATION: 07/03/2018 REFERRING PHYSICIAN: Dr. Engel. REASON FOR CONSULTATION: Encephalopathy, possible infectious etiology. Pt is not able to communicate, history and other information is limited. HISTORY OF PRESENT ILLNESS: This is a 63-year-old male who presented to the ER on 07/02/2018 where he was brought via EMS from his residence for tremors, which started a week prior to admission. The patient is having altered mental status, not verbalizing, unable to give full details. History obtained from staff and chart review. According to the patient's girlfriend report, the patient started having the above symptoms a week prior to admission. He has no insurance, so they did not seek medical attention until it got worse when his girlfriend noted him to be disoriented. The patient was found to have tremors and subsequently had a seizure episode and 911 was called. The patient had CT of the head at [facility] did not show any acute changes, had some cerebral atrophy and old chronic ischemia. The patient was started on Keppra. Brain MRI is unable to perform as he has metallic projects at the floor of the left maxillary sinus. The patient underwent an EEG earlier, report of which is pending at this time. He also had hypertensive emergency with blood pressure elevated at 214/112. The patient remains disoriented, confused, unable to give history. No fevers, no chills, no nausea, no vomiting and no shortness of breath or chest pain. No diarrhea. No rash. He has been in this country for 20 years. No history of recent travel. No history of recent immunization. It does not appear that he is taking any medications. There is history of remote incarceration in his country 20 years prior to him coming to the [place], but we do not have details at this time. PAST MEDICAL HISTORY: Peripheral arterial disease and GERD. PAST SURGICAL HISTORY: Left nephrectomy, etiology unclear. FAMILY HISTORY: Unknown. SOCIAL HISTORY: Positive for smoking. Lives with friends, has girlfriend, has been in this country for 20 years. No other information available. ALLERGIES: No known drug allergies. CURRENT MEDICATIONS: Antibiotics, none. OTHER MEDICATIONS: Reviewed in medication list. REVIEW OF SYSTEMS: CONSTITUTIONAL: The patient does not have any cachexia or malnutrition. HEENT: Atraumatic. No head injury. No drainage. No purulence. Hearing not decreased. DERMATOLOGICAL: No generalized rash. NECK: No injury. No stiffness. CARDIAC: Negative. PULMONARY: History of smoking, otherwise negative. Not on any oxygen. GASTROINTESTINAL: Negative. GENITOURINARY: Negative. MUSCULOSKELETAL: Negative. NEUROLOGICAL: As above. PSYCHIATRIC: Negative. At least limited history, unable to obtain, as I said due to the patient's current medical condition. PHYSICAL EXAMINATION: VITAL SIGNS: Temperature 97.8, pulse 60, respiration 18, blood pressure 137/64 and oxygen saturation 99% on 2 liters. GENERAL: The patient is lying in bed comfortably, in no acute distress, continues to have involuntary movement of the left side, cooperative, not combative. HEENT: Normocephalic and atraumatic. Anicteric. No thrush. Oral mucosa dry. No sinus tenderness. NECK: Supple. No JVD. No lymphadenopathy. LUNGS: Decreased breath sounds at the bases, otherwise clear. HEART: S1 and S2. No murmurs. ABDOMEN: Soft, nontender and nondistended. EXTREMITIES: No edema and no cyanosis. DERMATOLOGICAL: Warm and dry. No generalized rash. CENTRAL NERVOUS SYSTEM: Facial twitching tremors in bilateral upper extremity. Moves all 4 extremities. Unable to get detailed [employer]. PSYCHIATRIC: Cooperative but unable to get other details. LABORATORY DATA: WBC 10.7, hemoglobin 13.6, hematocrit 42.9 and platelets 184. Sodium 139, potassium 5.0, chloride 104, bicarbonate 27, BUN 18, creatinine 1.0 and glucose 120. Troponin 0.130. Influenza screen negative. UDS negative. Alcohol less than 10. UA negative for infection. IMAGING DATA: CT head as above. Chest x-ray negative. Facial bone x-ray shows metallic density in the floor of the left maxillary sinus. A definite air-fluid level seen. No fracture identified. IMPRESSION: 1. Encephalopathy, likely metabolic though pt is not able to give any history, no family at bedside. Unable to obtain MRI as the patient has metallic fragments in the floor of the left maxillary sinus. 2. Status epilepticus. on 3. 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 4. Hypertensive encephalopathy. 5. Disorientation. 6. Confusion. 7. History of incarceration more than 20 years ago. 8. Diabetes. 9. Peripheral vascular disease. 10. Smoking. 11. Left nephrectomy. 12. Peripheral arterial disease. 13. Gastroesophageal reflux disease. RECOMMENDATIONS: To rule out infectious etiology, we will need LP for CSF. No family is available at bedside to give consent, so will be done tomorrow per RN. IR consult for LP, send fluid for routine studies including cell count, glucose, protein, Gram stain, bacterial, fungal, AFB smear and cultures,VDRL. We will obtain HIV if family is able to give consent. Acute hepatitis profile, EBV, CMV serologies. Obtain syphilis serologies. Start the patient on empiric IV cefepime, IV vancomycin, IV acyclovir and IV ampicillin pending CSF. Follow up renal functions closely. Follow up labs closely. Maintain aspiration precaution. Maintain fluid balance. Monitor electrolytes closely. Neurology following Thank you for consulting Infectious Disease to participate in this patient's care. If you have any questions, do not hesitate to contact me. SHAI RAYO MD DR: NIKA/murali JOB#: [id number] / [id number] FLOR[place]
[2018-07-04] MEDS: VANCOMYCIN 1 GM in IV NORMAL SALINE 250ML 250 ML IV SCH ×2 (05:27→18:45)
[2018-07-04 07:00] VITALS: BP 170/70
[2018-07-04] MEDS: AMINO AC 3%/ELECTROLYTE/GLYCER 1,000 ML IV SCH ×2 (07:45→21:17)
[2018-07-04] MEDS: IV NORMAL SALINE 1000ML BAG 1,000 ML IV SCH (08:30)
[2018-07-04] MEDS: DIVALPROEX DELAYED RELEASE 500 MG TABLET.DR. PO SCH (08:34)
[2018-07-04] MEDS: ASPIRIN CHEWABLE 81 MG TABLET. PO SCH (08:34)
--- NOTE | 2018-07-04 08:48 | PDOC ---
Infectious Disease Note Subjective: Subjective pt remains the same Alert awake says good morning ,then keeps on mumbling Awaiting LP team is attempting girlfriend to get here with transportation Continues to have tremors especially left upper extremity ROS: ROS Unable to obtain Discussed with nursing staff Vital Signs: Vital Signs Vital Signs Date Time Temp Pulse Resp B/P (MAP) Pulse Ox O2 Delivery O2 Flow Rate FiO2 07/04/18 07:00 98.4 96 18 170/70 (103) 97 Nasal Cannula 2.0 98.4 Physical Exam: PHYSICAL EXAM GENERAL: The patient is lying in bed, in no acute distress, continues to have involuntary movement of the left side, cooperative, not combative. Unable to verbalize, keeps on mumbling in [place] HEENT: Normocephalic and atraumatic. Anicteric. No thrush. Oral mucosa dry. No sinus tenderness. NECK: Supple. No JVD. No lymphadenopathy. LUNGS: Decreased breath sounds both lungs HEART: S1 and S2. No murmurs. ABDOMEN: Soft, nontender and nondistended. EXTREMITIES: No edema and no cyanosis. DERMATOLOGICAL: Warm and dry. No generalized rash. CENTRAL NERVOUS SYSTEM: Facial twitching ,tremors in bilateral upper extremity. Left greater than right. Moves all 4 extremities. Unable to verbalize Medications: Inpatient Meds: Current Medications Medications (Trade) Dose Ordered Sig/Gloria Start Time Stop Time Status Last Admin Dose Admin Acetaminophen (Tylenol) 650 mg PRN Q4HRS PRN 07/02/18 15:45 Acyclovir Sodium 730 mg/Dextrose 264.6 ml @ 264.6 mls/ hr Q8HRS 07/03/18 15:00 07/04/18 05:07 264.6 MLS/HR Al Hydroxide/Mg Hydroxide (Mylanta Plus Xs) 30 ml PRN DAILY PRN 07/02/18 15:45 Albuterol Sulfate (Ventolin Neb Soln) 2.5 mg PRN Q4HRS PRN 07/02/18 15:45 Amino Acids/ Glycerin/ Electrolytes 1,000 ml @ 80 mls/hr [id number] 07/03/18 19:15 07/03/18 19:41 80 MLS/HR Ampicillin Sodium 2 gm/Sodium Chloride 100 ml @ 200 mls/hr Q4HRS 07/03/18 16:00 07/04/18 08:28 200 MLS/HR Aspirin (Children'S Aspirin) 81 mg DAILY 07/03/18 09:00 Cefepime HCl (Maxipime) 2 gm Q8HRS 07/03/18 14:30 07/04/18 05:07 2 GM Clonidine HCl (Catapres) 0.1 mg PRN Q6HRS PRN 07/02/18 15:45 Diphenhydramine HCl (Benadryl) 25 mg PRN Q4HRS PRN 07/02/18 15:45 Divalproex Sodium (Depakote) 500 mg BID 07/03/18 21:00 Docusate Sodium (Colace) 100 mg PRN BID PRN 07/02/18 15:45 Enoxaparin Sodium (Lovenox 40mg Syringe) 40 mg DAILY 07/03/18 09:00 Guaifenesin (Robitussin) 200 mg PRN Q4HRS PRN 07/02/18 15:45 Hydralazine HCl (Apresoline Inj) 10 mg PRN Q4HRS PRN 07/02/18 16:45 07/03/18 20:06 10 MG Levetiracetam 500 mg/Dextrose 105 ml @ 420 mls/hr Q12HR 07/03/18 21:00 07/03/18 21:38 420 MLS/HR Levetiracetam 750 mg/Dextrose 107.5 ml @ 420 mls/hr Q12HR 07/02/18 16:30 07/03/18 14:17 DC 07/03/18 09:35 420 MLS/HR Lorazepam (Ativan) 2 mg PRN Q4HRS PRN 07/02/18 18:30 Nitroglycerin (Nitro-Bid Oint) 0.5 inch Q6HRS 07/02/18 17:30 07/04/18 05:07 0.5 INCH Ondansetron HCl (Zofran) 4 mg PRN Q4HRS PRN 07/02/18 15:45 Sodium Monofluorophosphate (Fleet Adult) 133 ml PRN DAILY PRN 07/02/18 15:45 Sodium Chloride 1,000 ml @ 100 mls/hr Q10H 07/02/18 16:30 07/02/18 16:04 100 MLS/HR Sodium Chloride (Normal Saline Flush 3ml) 3 ml QSHIFT PRN 07/02/18 15:45 Vancomycin HCl (Vanco Per Pharmacy) 1 each PRN DAILY PRN 07/03/18 14:15 07/03/18 19:03 1 EACH Vancomycin HCl (Vancomycin Trough Level) 1 each 1X ONCE 07/05/18 05:30 07/05/18 05:31 Vancomycin HCl 1.5 gm/Sodium Chloride 500 ml @ 250 mls/hr 1X ONCE 07/03/18 15:00 07/03/18 16:59 DC 07/03/18 17:54 250 MLS/HR Vancomycin HCl 1 gm/Sodium Chloride 250 ml @ 250 mls/hr Q12H 07/04/18 06:00 07/04/18 05:27 250 MLS/HR Zolpidem Tartrate (Ambien) 5 mg PRN QHS PRN 07/02/18 15:45 Labs: Lab Laboratory Tests Test 07/03/18 16:35 07/04/18 03:35 Erythrocyte Sedimentation Rate 20 (0-15) Procalcitonin < 0.10 ng/mL (0.00-0.10) Treponema pallidum Antibody Reactive (Nonreactive) Cytomegalovirus IgG Antibody >10.00 U/mL (0.00-0.59) Cytomegalovirus IgM Antibody <30.0 AU/mL (0.0-29.9) Hepatitis A IgM Antibody Nonreactive (Nonreactive) Hepatitis B Surface Antigen Nonreactive (Nonreactive) Hepatitis B Core IgM Antibody Nonreactive (Nonreactive) Hepatitis C IgG Antibody Nonreactive (Nonreactive) HIV (1&2) Antibody Screen Nonreactive (Nonreactive) White Blood Count 10.4 x10^3/uL (4.0-11.0) Red Blood Count 5.43 x10^6/uL (4.30-5.70) Hemoglobin 13.5 g/dL (13.0-17.5) Hematocrit 41.0 % (39.0-53.0) Mean Corpuscular Volume 76 fL (79-100) Mean Corpuscular Hemoglobin 25 pg (25-35) Mean Corpuscular Hemoglobin Concent 33 g/dL (31-37) Red Cell Distribution Width 14.6 % (11.5-14.5) Platelet Count 186 x10^3/uL (140-400) Neutrophils (%) (Auto) 77 % (31-73) Lymphocytes (%) (Auto) 11 % (24-48) Monocytes (%) (Auto) 9 % (0-9) Eosinophils (%) (Auto) 2 % (0-3) Basophils (%) (Auto) 1 % (0-3) Neutrophils # (Auto) 8.0 x10^3uL (1.8-7.7) Lymphocytes # (Auto) 1.1 x10^3/uL (1.0-4.8) Monocytes # (Auto) 1.0 x10^3/uL (0.0-1.1) Eosinophils # (Auto) 0.2 x10^3/uL (0.0-0.7) Basophils # (Auto) 0.0 x10^3/uL (0.0-0.2) Sodium Level 138 mmol/L (136-145) Potassium Level 4.3 mmol/L (3.5-5.1) Chloride Level 102 mmol/L (98-107) Carbon Dioxide Level 24 mmol/L (21-32) Anion Gap 12 (6-14) Blood Urea Nitrogen 17 mg/dL (8-26) Creatinine 1.0 mg/dL (0.7-1.3) Estimated GFR (Cockcroft-Gault) 75.5 BUN/Creatinine Ratio 17 (6-20) Glucose Level 111 mg/dL (70-99) Calcium Level 8.8 mg/dL (8.5-10.1) Total Bilirubin 1.3 mg/dL (0.2-1.0) Aspartate Amino Transf (AST/SGOT) 29 U/L (15-37) Alanine Aminotransferase (ALT/SGPT) 26 U/L (16-63) Alkaline Phosphatase 85 U/L (46-116) Total Protein 7.9 g/dL (6.4-8.2) Albumin 3.0 g/dL (3.4-5.0) Albumin/Globulin Ratio 0.6 (1.0-1.7) Objective: Assessment: 1. Encephalopathy, likely metabolic though pt is not able to give any history, no family at bedside. Unable to obtain MRI as the patient has metallic fragments in the floor of the left maxillary sinus. 2. Status epilepticus. on [facility] 3. 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 4. Hypertensive encephalopathy. 5. Disorientation,Confusion. 6. TPPA positive,syphilis unknown status 7. History of incarceration more than 20 years ago. 8. Diabetes. 9. Peripheral vascular disease. 10. Smoking. 11. Left nephrectomy. 12. Peripheral arterial disease. 13. Gastroesophageal reflux disease. 14. Aspiration Plan: Plan of Care For completeness of work up awaiting LP for CSF. cont IV cefepime, IV vancomycin, IV acyclovir and IV ampicillin pending CSF. f/u CSF studies including VDRL f/u RPR and other infectious disease serologies Follow up renal functions closely. Follow up labs closely. Maintain aspiration precaution. Maintain fluid balance. Monitor electrolytes closely. Neurology following SHAI RAYO MD Jul 04, 2018 08:48
[2018-07-04] MEDS: ENOXAPARIN 40 MG/0.4 ML SYRINGE. SQ SCH (09:00)
--- NOTE | 2018-07-04 10:20 | PDOC ---
Provider Note Provider Note The fluoro guided LP was performed without difficulty utilizing a 20g spinal needle. 9cc of clear CSF was removed and sent to the lab. The patient was sent to CT in stable condition. KIZZY RODAS MD Jul 04, 2018 10:20
--- NOTE | 2018-07-04 10:44 | PDOC ---
PROGRESS NOTES History of Present Illness History of Present Illness Assessment/Plan Assessment/Plan IMPRESSION IMPRESSION: tremors ///POSSIBLE SEIZURE, NOW LOW ON DIFFERENTIAL No acute intracranial finding. Note is made that MRI is more sensitive for acute infarction. Metallic density projects over the floor of the left maxillary sinus. No definite orbital foreign body is seen. Decreased attenuation within the cerebral white matter, likely due to chronic small vessel disease. Cerebral atrophy. ELEVATED TROPONIN I PLAN LP Cardiac monitoring Serial Enzymes Serial EKGs Home meds Neurology consult IV ATIVAN PRN SEIZURE ACTIVITY DVT PROPHYLAXIS CARDIOLOGY CONSULT seizure precautions mri on hold TB TEST ID CONSULT 39 min pt exam, chart review,> 50% of time with pt exam, chart review, pt care coordination Vitals Vitals Vital Signs Date Time Temp Pulse Resp B/P (MAP) Pulse Ox O2 Delivery O2 Flow Rate FiO2 07/04/18 07:00 98.4 96 18 170/70 (103) 97 Nasal Cannula 2.0 98.4 Physical Exam Physical Exam GENERAL: The patient is lying in bed, in no acute distress, continues to have involuntary movement of the left side, cooperative, not combative. Unable to verbalize, keeps on mumbling in greenlandic HEENT: Normocephalic and atraumatic. Anicteric. No thrush. Oral mucosa dry. No sinus tenderness. NECK: Supple. No JVD. No lymphadenopathy. LUNGS: Decreased breath sounds both lungs HEART: S1 and S2. No murmurs. ABDOMEN: Soft, nontender and nondistended. EXTREMITIES: No edema and no cyanosis. DERMATOLOGICAL: Warm and dry. No generalized rash. CENTRAL NERVOUS SYSTEM: Facial twitching ,tremors in bilateral upper extremity. Left greater than right. Moves all 4 extremities. Unable to verbalize General: Cooperative, mild distress, Other (ENCEPHALOPATHIC) Heart: Regular rate (SR), Normal S1, Normal S2, No murmurs, Other (2/6 systolic murmur to LLS border) Lungs: Clear Abdomen: Normal bowel sounds, Soft, No hepatosplenomegaly Extremities: No cyanosis, Other (INVOLUNTARY LEFT ARM MOVEMENTS) Skin: No breakdown Labs LABS EXAM: Cervical spine CT without contrast. HISTORY: Left arm dyskinesia. TECHNIQUE: Computed tomographic images of the cervical spine were obtained without contrast. Multiplanar reformatting was performed. *One or more of the following individualized dose reduction techniques were utilized for this examination: 1. Automated exposure control. 2. Adjustment of the mA and/or kV according to patient size. 3. Use of iterative reconstruction technique. COMPARISON: None. FINDINGS: The exam is limited due to motion. There is no significant listhesis. There is no acute or subacute fracture. There is anterior predominant endplate remodeling at multiple levels. There is no suspicious osseous lesion. There is no neck lymphadenopathy. There is minimal biapical emphysema. At C2-C3, there is a posterior central disc protrusion. There is no stenosis. At C3-C4, there is endplate. There is no stenosis At C4-C5, there is endplate remodeling. There is no stenosis. At C5-C6, there is a disc bulge and endplate remodeling. There is minimal right greater than left facet arthropathy. There is mild right foraminal stenosis. At C6-C7, there is a disc bulge and endplate remodeling. There is no stenosis. IMPRESSION: 1. Slightly limited exam due to motion. 2. Mild degenerative changes involving the cervical spine, described above. 3. No acute finding. Electronically signed by: Leora Davila MD (07/04/2018 1:09 PM) [id number] Laboratory Tests Test 07/03/18 16:35 07/04/18 03:35 Erythrocyte Sedimentation Rate 20 (0-15) Procalcitonin < 0.10 ng/mL (0.00-0.10) Treponema pallidum Antibody Reactive (Nonreactive) Cytomegalovirus IgG Antibody >10.00 U/mL (0.00-0.59) Cytomegalovirus IgM Antibody <30.0 AU/mL (0.0-29.9) Hepatitis A IgM Antibody Nonreactive (Nonreactive) Hepatitis B Surface Antigen Nonreactive (Nonreactive) Hepatitis B Core IgM Antibody Nonreactive (Nonreactive) Hepatitis C IgG Antibody Nonreactive (Nonreactive) HIV (1&2) Antibody Screen Nonreactive (Nonreactive) White Blood Count 10.4 x10^3/uL (4.0-11.0) Red Blood Count 5.43 x10^6/uL (4.30-5.70) Hemoglobin 13.5 g/dL (13.0-17.5) Hematocrit 41.0 % (39.0-53.0) Mean Corpuscular Volume 76 fL (79-100) Mean Corpuscular Hemoglobin 25 pg (25-35) Mean Corpuscular Hemoglobin Concent 33 g/dL (31-37) Red Cell Distribution Width 14.6 % (11.5-14.5) Platelet Count 186 x10^3/uL (140-400) Neutrophils (%) (Auto) 77 % (31-73) Lymphocytes (%) (Auto) 11 % (24-48) Monocytes (%) (Auto) 9 % (0-9) Eosinophils (%) (Auto) 2 % (0-3) Basophils (%) (Auto) 1 % (0-3) Neutrophils # (Auto) 8.0 x10^3uL (1.8-7.7) Lymphocytes # (Auto) 1.1 x10^3/uL (1.0-4.8) Monocytes # (Auto) 1.0 x10^3/uL (0.0-1.1) Eosinophils # (Auto) 0.2 x10^3/uL (0.0-0.7) Basophils # (Auto) 0.0 x10^3/uL (0.0-0.2) Sodium Level 138 mmol/L (136-145) Potassium Level 4.3 mmol/L (3.5-5.1) Chloride Level 102 mmol/L (98-107) Carbon Dioxide Level 24 mmol/L (21-32) Anion Gap 12 (6-14) Blood Urea Nitrogen 17 mg/dL (8-26) Creatinine 1.0 mg/dL (0.7-1.3) Estimated GFR (Cockcroft-Gault) 75.5 BUN/Creatinine Ratio 17 (6-20) Glucose Level 111 mg/dL (70-99) Calcium Level 8.8 mg/dL (8.5-10.1) Total Bilirubin 1.3 mg/dL (0.2-1.0) Aspartate Amino Transf (AST/SGOT) 29 U/L (15-37) Alanine Aminotransferase (ALT/SGPT) 26 U/L (16-63) Alkaline Phosphatase 85 U/L (46-116) Total Protein 7.9 g/dL (6.4-8.2) Albumin 3.0 g/dL (3.4-5.0) Albumin/Globulin Ratio 0.6 (1.0-1.7) Assessment and Plan Assessmemt and Plan Problems Medical Problems: (1) Elevated troponin Status: Acute (2) Tremor Status: Acute Comment Review of Relevant I have reviewed the following items kendrick (where applicable) has been applied. Labs Laboratory Tests Test 07/02/18 11:10 07/02/18 11:20 07/02/18 12:24 07/02/18 15:12 Sodium Level 140 mmol/L (136-145) Potassium Level 5.5 mmol/L (3.5-5.1) Chloride Level 104 mmol/L (98-107) Carbon Dioxide Level 30 mmol/L (21-32) Anion Gap 6 (6-14) Blood Urea Nitrogen 22 mg/dL (8-26) Creatinine 1.1 mg/dL (0.7-1.3) Estimated GFR (Cockcroft-Gault) 67.6 BUN/Creatinine Ratio 20 (6-20) Glucose Level 126 mg/dL (70-99) Calcium Level 8.9 mg/dL (8.5-10.1) Total Bilirubin 0.6 mg/dL (0.2-1.0) Aspartate Amino Transf (AST/SGOT) 28 U/L (15-37) Alanine Aminotransferase (ALT/SGPT) 29 U/L (16-63) Alkaline Phosphatase 98 U/L (46-116) Creatine Kinase 89 U/L (39-308) Creatine Kinase MB (Mass) 1.5 ng/mL (0.0-3.6) Creatine Kinase MB Relative Index 1.7 % (0-4) Troponin I Quantitative 0.163 ng/mL (0.000-0.055) Total Protein 8.4 g/dL (6.4-8.2) Albumin 3.6 g/dL (3.4-5.0) Albumin/Globulin Ratio 0.8 (1.0-1.7) Ethyl Alcohol Level < 10 mg/dL (0-10) Influenza Type A Antigen Negative (NEGATIVE) Influenza Type B Antigen Negative (NEGATIVE) Urine Collection Type Unknown Urine Color Yellow Urine Clarity Clear Urine pH 7.0 Urine Specific Coleman 1.025 Urine Protein 100 mg/dL (NEG-TRACE) Urine Glucose (UA) Negative mg/dL (NEG) Urine Ketones (Stick) Negative mg/dL (NEG) Urine Blood Small (NEG) Urine Nitrite Negative (NEG) Urine Bilirubin Negative (NEG) Urine Urobilinogen Dipstick 0.2 mg/dL (0.2 mg/dL) Urine Leukocyte Esterase Negative (NEG) Urine RBC 20-40 /HPF (0-2) Urine WBC Occ /HPF (0-4) Urine Squamous Epithelial Cells Few /LPF Urine Bacteria 0 /HPF (0-FEW) Urine Mucus Slight /LPF Urine Opiates Screen Neg (NEG) Urine Methadone Screen Neg (NEG) Urine Barbiturates Neg (NEG) Urine Phencyclidine Screen Neg (NEG) Urine Amphetamine/Methamphetamine Neg (NEG) Urine Benzodiazepines Screen Neg (NEG) Urine Cocaine Screen Neg (NEG) Urine Cannabinoids Screen Neg (NEG) Urine Ethyl Alcohol Neg (NEG) Glucose (Fingerstick) 115 mg/dL (70-99) Test 07/02/18 16:00 07/02/18 20:55 07/03/18 04:45 07/03/18 16:35 Potassium Level 5.0 mmol/L (3.5-5.1) 5.0 mmol/L (3.5-5.1) Troponin I Quantitative 0.159 ng/mL (0.000-0.055) 0.130 ng/mL (0.000-0.055) White Blood Count 10.7 x10^3/uL (4.0-11.0) Red Blood Count 5.62 x10^6/uL (4.30-5.70) Hemoglobin 13.6 g/dL (13.0-17.5) Hematocrit 42.9 % (39.0-53.0) Mean Corpuscular Volume 76 fL (79-100) Mean Corpuscular Hemoglobin 24 pg (25-35) Mean Corpuscular Hemoglobin Concent 32 g/dL (31-37) Red Cell Distribution Width 15.1 % (11.5-14.5) Platelet Count 184 x10^3/uL (140-400) Neutrophils (%) (Auto) 74 % (31-73) Lymphocytes (%) (Auto) 16 % (24-48) Monocytes (%) (Auto) 8 % (0-9) Eosinophils (%) (Auto) 1 % (0-3) Basophils (%) (Auto) 0 % (0-3) Neutrophils # (Auto) 8.0 x10^3uL (1.8-7.7) Lymphocytes # (Auto) 1.8 x10^3/uL (1.0-4.8) Monocytes # (Auto) 0.8 x10^3/uL (0.0-1.1) Eosinophils # (Auto) 0.1 x10^3/uL (0.0-0.7) Basophils # (Auto) 0.0 x10^3/uL (0.0-0.2) Sodium Level 139 mmol/L (136-145) Chloride Level 104 mmol/L (98-107) Carbon Dioxide Level 27 mmol/L (21-32) Anion Gap 8 (6-14) Blood Urea Nitrogen 18 mg/dL (8-26) Creatinine 1.0 mg/dL (0.7-1.3) Estimated GFR (Cockcroft-Gault) 75.5 Glucose Level 120 mg/dL (70-99) Calcium Level 9.3 mg/dL (8.5-10.1) Erythrocyte Sedimentation Rate 20 (0-15) Procalcitonin < 0.10 ng/mL (0.00-0.10) Treponema pallidum Antibody Reactive (Nonreactive) Cytomegalovirus IgG Antibody >10.00 U/mL (0.00-0.59) Cytomegalovirus IgM Antibody <30.0 AU/mL (0.0-29.9) Hepatitis A IgM Antibody Nonreactive (Nonreactive) Hepatitis B Surface Antigen Nonreactive (Nonreactive) Hepatitis B Core IgM Antibody Nonreactive (Nonreactive) Hepatitis C IgG Antibody Nonreactive (Nonreactive) HIV (1&2) Antibody Screen Nonreactive (Nonreactive) Test 07/04/18 03:35 White Blood Count 10.4 x10^3/uL (4.0-11.0) Red Blood Count 5.43 x10^6/uL (4.30-5.70) Hemoglobin 13.5 g/dL (13.0-17.5) Hematocrit 41.0 % (39.0-53.0) Mean Corpuscular Volume 76 fL (79-100) Mean Corpuscular Hemoglobin 25 pg (25-35) Mean Corpuscular Hemoglobin Concent 33 g/dL (31-37) Red Cell Distribution Width 14.6 % (11.5-14.5) Platelet Count 186 x10^3/uL (140-400) Neutrophils (%) (Auto) 77 % (31-73) Lymphocytes (%) (Auto) 11 % (24-48) Monocytes (%) (Auto) 9 % (0-9) Eosinophils (%) (Auto) 2 % (0-3) Basophils (%) (Auto) 1 % (0-3) Neutrophils # (Auto) 8.0 x10^3uL (1.8-7.7) Lymphocytes # (Auto) 1.1 x10^3/uL (1.0-4.8) Monocytes # (Auto) 1.0 x10^3/uL (0.0-1.1) Eosinophils # (Auto) 0.2 x10^3/uL (0.0-0.7) Basophils # (Auto) 0.0 x10^3/uL (0.0-0.2) Sodium Level 138 mmol/L (136-145) Potassium Level 4.3 mmol/L (3.5-5.1) Chloride Level 102 mmol/L (98-107) Carbon Dioxide Level 24 mmol/L (21-32) Anion Gap 12 (6-14) Blood Urea Nitrogen 17 mg/dL (8-26) Creatinine 1.0 mg/dL (0.7-1.3) Estimated GFR (Cockcroft-Gault) 75.5 BUN/Creatinine Ratio 17 (6-20) Glucose Level 111 mg/dL (70-99) Calcium Level 8.8 mg/dL (8.5-10.1) Total Bilirubin 1.3 mg/dL (0.2-1.0) Aspartate Amino Transf (AST/SGOT) 29 U/L (15-37) Alanine Aminotransferase (ALT/SGPT) 26 U/L (16-63) Alkaline Phosphatase 85 U/L (46-116) Total Protein 7.9 g/dL (6.4-8.2) Albumin 3.0 g/dL (3.4-5.0) Albumin/Globulin Ratio 0.6 (1.0-1.7) Laboratory Tests Test 07/03/18 16:35 07/04/18 03:35 Erythrocyte Sedimentation Rate 20 (0-15) Procalcitonin < 0.10 ng/mL (0.00-0.10) Treponema pallidum Antibody Reactive (Nonreactive) Cytomegalovirus IgG Antibody >10.00 U/mL (0.00-0.59) Cytomegalovirus IgM Antibody <30.0 AU/mL (0.0-29.9) Hepatitis A IgM Antibody Nonreactive (Nonreactive) Hepatitis B Surface Antigen Nonreactive (Nonreactive) Hepatitis B Core IgM Antibody Nonreactive (Nonreactive) Hepatitis C IgG Antibody Nonreactive (Nonreactive) HIV (1&2) Antibody Screen Nonreactive (Nonreactive) White Blood Count 10.4 x10^3/uL (4.0-11.0) Red Blood Count 5.43 x10^6/uL (4.30-5.70) Hemoglobin 13.5 g/dL (13.0-17.5) Hematocrit 41.0 % (39.0-53.0) Mean Corpuscular Volume 76 fL (79-100) Mean Corpuscular Hemoglobin 25 pg (25-35) Mean Corpuscular Hemoglobin Concent 33 g/dL (31-37) Red Cell Distribution Width 14.6 % (11.5-14.5) Platelet Count 186 x10^3/uL (140-400) Neutrophils (%) (Auto) 77 % (31-73) Lymphocytes (%) (Auto) 11 % (24-48) Monocytes (%) (Auto) 9 % (0-9) Eosinophils (%) (Auto) 2 % (0-3) Basophils (%) (Auto) 1 % (0-3) Neutrophils # (Auto) 8.0 x10^3uL (1.8-7.7) Lymphocytes # (Auto) 1.1 x10^3/uL (1.0-4.8) Monocytes # (Auto) 1.0 x10^3/uL (0.0-1.1) Eosinophils # (Auto) 0.2 x10^3/uL (0.0-0.7) Basophils # (Auto) 0.0 x10^3/uL (0.0-0.2) Sodium Level 138 mmol/L (136-145) Potassium Level 4.3 mmol/L (3.5-5.1) Chloride Level 102 mmol/L (98-107) Carbon Dioxide Level 24 mmol/L (21-32) Anion Gap 12 (6-14) Blood Urea Nitrogen 17 mg/dL (8-26) Creatinine 1.0 mg/dL (0.7-1.3) Estimated GFR (Cockcroft-Gault) 75.5 BUN/Creatinine Ratio 17 (6-20) Glucose Level 111 mg/dL (70-99) Calcium Level 8.8 mg/dL (8.5-10.1) Total Bilirubin 1.3 mg/dL (0.2-1.0) Aspartate Amino Transf (AST/SGOT) 29 U/L (15-37) Alanine Aminotransferase (ALT/SGPT) 26 U/L (16-63) Alkaline Phosphatase 85 U/L (46-116) Total Protein 7.9 g/dL (6.4-8.2) Albumin 3.0 g/dL (3.4-5.0) Albumin/Globulin Ratio 0.6 (1.0-1.7) Microbiology 07/02/18 Blood Culture - Preliminary, Resulted NO GROWTH AFTER 1 DAY Medications Current Medications Sodium Chloride 1,000 ml @ 1,000 mls/hr 1X ONCE IV Last administered on at 10:00; Start 07/02/18 at 10:00; Stop 07/02/18 at 10:59; Status DC Lorazepam (Ativan) 0.5 mg 1X ONCE IV Last administered on 07/02/18at 12:12; Start 07/02/18 at 12:30; Stop 07/02/18 at 12:31; Status DC Aspirin (Children'S Aspirin) 324 mg 1X ONCE PO Last administered on 07/02/18at 13:18; Start 07/02/18 at 13:30; Stop 07/02/18 at 13:31; Status DC Acetaminophen (Tylenol) 650 mg PRN Q4HRS PRN PO FEVER; Start 07/02/18 at 14:30 ; Stop 07/02/18 at 18:38; Status DC Lorazepam (Ativan) 2 mg PRN Q4HRS PRN IV ANXIETY / AGITATION Last administered on 07/02/18at 17:58; Start 07/02/18 at 15:30 Levetiracetam 750 mg/Dextrose 107.5 ml @ 420 mls/hr Q12HR IV Last administered on 07/03/18at 09:35; Start 07/02/18 at 16:30; Stop 07/03/18 at 14:17 ; Status DC Sodium Chloride (Normal Saline Flush 3ml) 3 ml QSHIFT PRN IV AFTER MEDS AND BLOOD DRAWS; Start 07/02/18 at 15:45 Sodium Chloride 1,000 ml @ 100 mls/hr Q10H IV Last administered on 07/02/18at 16:04; Start 07/02/18 at 16:30 Ondansetron HCl (Zofran) 4 mg PRN Q4HRS PRN IV NAUSEA/VOMITING; Start 07/02/18 at 15:45 Zolpidem Tartrate (Ambien) 5 mg PRN QHS PRN PO INSOMNIA; Start 07/02/18 at 15: 45 Acetaminophen (Tylenol) 650 mg PRN Q4HRS PRN PO TEMP OVER 100.4F OR MILD PAIN; Start 07/02/18 at 15:45 Al Hydroxide/Mg Hydroxide (Mylanta Plus Xs) 30 ml PRN DAILY PRN PO HEARTBURN / GAS; Start 07/02/18 at 15:45 Clonidine HCl (Catapres) 0.1 mg PRN Q6HRS PRN PO SBP>160 OR DBP>90; Start 07/02 at 15:45 Sodium Monofluorophosphate (Fleet Adult) 133 ml PRN DAILY PRN IA CONSTIPATION; Start 07/02/18 at 15:45 Diphenhydramine HCl (Benadryl) 25 mg PRN Q4HRS PRN IVP ITCHING; Start 07/02/18 at 15:45 Docusate Sodium (Colace) 100 mg PRN BID PRN PO CONSTIPATION; Start 07/02/18 at 15:45 Albuterol Sulfate (Ventolin Neb Soln) 2.5 mg PRN Q4HRS PRN NEB SHORTNESS OF BREATH; Start 07/02/18 at 15:45 Guaifenesin (Robitussin) 200 mg PRN Q4HRS PRN PO COUGH; Start 07/02/18 at 15:45 Lorazepam (Ativan) 0.5 mg PRN Q4HRS PRN PO ANXIETY / AGITATION; Start 07/02/18 at 15:45 Enoxaparin Sodium (Lovenox 40mg Syringe) 40 mg DAILY SQ ; Start 07/03/18 at 09: 00 Hydralazine HCl (Apresoline Inj) 10 mg PRN Q4HRS PRN IVP ELEVATED BP, SEE COMMENTS Last administered on 07/03/18at 20:06; Start 07/02/18 at 16:45 Nitroglycerin (Nitro-Bid Oint) 0.5 inch Q6HRS TP Last administered on at 05:07; Start 07/02/18 at 17:30 Aspirin (Children'S Aspirin) 81 mg DAILY PO ; Start 07/03/18 at 09:00 Lorazepam (Ativan) 2 mg PRN Q4HRS PRN IV ALCOHOL WITHDRAWAL; Start 07/02/18 at 18:30 Cefepime HCl (Maxipime) 2 gm Q8HRS IVP Last administered on 07/04/18at 05:07; Start 07/03/18 at 14:30 Acyclovir Sodium 730 mg/Dextrose 264.6 ml @ 264.6 mls/ hr Q8HRS IV Last administered on 07/04/18at 05:07; Start 07/03/18 at 15:00 Vancomycin HCl (Vanco Per Pharmacy) 1 each PRN DAILY PRN MC SEE COMMENTS Last administered on 07/03/18at 19:03; Start 07/03/18 at 14:15 Ampicillin Sodium 2 gm/Sodium Chloride 100 ml @ 200 mls/hr Q4HRS IV Last administered on 07/04/18at 08:28; Start 07/03/18 at 16:00 Vancomycin HCl 1.5 gm/Sodium Chloride 500 ml @ 250 mls/hr 1X ONCE IV Last administered on 07/03/18at 17:54; Start 07/03/18 at 15:00; Stop 07/03/18 at 16:59 ; Status DC Levetiracetam 500 mg/Dextrose 105 ml @ 420 mls/hr Q12HR IV Last administered on 07/03/18at 21:38; Start 07/03/18 at 21:00 Divalproex Sodium (Depakote) 500 mg BID PO ; Start 07/03/18 at 21:00 Vancomycin HCl 1 gm/Sodium Chloride 250 ml @ 250 mls/hr Q12H IV Last administered on 07/04/18at 05:27; Start 07/04/18 at 06:00 Vancomycin HCl (Vancomycin Trough Level) 1 each 1X ONCE MC ; Start 07/05/18 at 05:30; Stop 07/05/18 at 05:31 Amino Acids/ Glycerin/ Electrolytes 1,000 ml @ 80 mls/hr [id number] IV Last administered on 07/03/18at 19:41; Start 07/03/18 at 19:15 Active Scripts Active Reported Zithromax (Azithromycin) 500 Mg Tablet 1 Tab PO DAILY Aspirin 81 Mg Tab.chew 81 Mg PO DAILY Hydrocodone-Apap 5-325 (Hydrocodone Bit/Acetaminophen) 1 Tab Tablet 1 Tab PO PRN Q6HRS PRN Vitals/I & O Vital Sign - Last 24 Hours 07/03/18 07/03/18 07/03/18 07/03/18 11:00 15:11 19:15 19:21 Temp 97.8 97.8 97.9 97.8 97.8 97.9 Pulse 68 90 93 90 Resp 18 19 B/P (MAP) 137/64 (88) 146/77 (100) 219/95 (136) 146/77 Pulse Ox 99 98 99 O2 Delivery Nasal Cannula Nasal Cannula Nasal Cannula O2 Flow Rate 2.0 2.0 2.0 07/03/18 07/03/18 07/03/18 07/03/18 20:00 20:06 20:46 23:31 Pulse 90 114 114 B/P (MAP) 219/97 179/77 (111) 179/77 O2 Delivery Nasal Cannula O2 Flow Rate 2.0 07/03/18 07/04/18 07/04/18 07/04/18 23:45 03:20 05:07 07:00 Temp 98.6 98.6 98.4 98.6 98.6 98.4 Pulse 108 97 97 96 Resp 18 B/P (MAP) 158/71 (100) 146/85 (105) 146/85 170/70 (103) Pulse Ox 94 95 97 O2 Delivery Nasal Cannula Nasal Cannula Nasal Cannula O2 Flow Rate 2.0 2.0 2.0 Intake and Output 07/03/18 07/03/18 07/04/18 15:00 23:00 07:00 Intake Total 200 ml 705 ml 629.2 ml Balance 200 ml 705 ml 629.2 ml LINDA ECHEVARRIA MD Jul 04, 2018 10:44
[2018-07-04 11:00] VITALS: BP 160/73
[2018-07-04] MEDS: levETIRAcetam 500 MG in IV DEXTROSE 5% 100ML 100 ML IV SCH ×2 (11:29→21:11)
[2018-07-04 11:44] LABS: CSF CLARITY CLEAR; CSF COLOR COLORLESS
[2018-07-04 11:45] LABS: CSF RBC COUNT 16 /cmm (Not Established); CSF WBC COUNT 0 /cmm (Not Established)
[2018-07-04 11:51] LABS: CSF PROTEIN 61.1 mg/dL (15.0-45.0)
[2018-07-04] MEDS: VANCOMYCIN PER PHARMACY MC PRN (12:31)
--- NOTE | 2018-07-04 13:12 | RAD ---
EXAM: Cervical spine CT without contrast. HISTORY: Left arm dyskinesia. TECHNIQUE: Computed tomographic images of the cervical spine were obtained without contrast. Multiplanar reformatting was performed. *One or more of the following individualized dose reduction techniques were utilized for this examination: 1. Automated exposure control. 2. Adjustment of the mA and/or kV according to patient size. 3. Use of iterative reconstruction technique. COMPARISON: None. FINDINGS: The exam is limited due to motion. There is no significant listhesis. There is no acute or subacute fracture. There is anterior predominant endplate remodeling at multiple levels. There is no suspicious osseous lesion. There is no neck lymphadenopathy. There is minimal biapical emphysema. At C2-C3, there is a posterior central disc protrusion. There is no stenosis. At C3-C4, there is endplate. There is no stenosis At C4-C5, there is endplate remodeling. There is no stenosis. At C5-C6, there is a disc bulge and endplate remodeling. There is minimal right greater than left facet arthropathy. There is mild right foraminal stenosis. At C6-C7, there is a disc bulge and endplate remodeling. There is no stenosis. IMPRESSION: 1. Slightly limited exam due to motion. 2. Mild degenerative changes involving the cervical spine, described above. 3. No acute finding. Electronically signed by: Leora Davila MD (07/04/2018 1:09 PM) [place] [id number]
--- NOTE | 2018-07-04 13:52 | RAD ---
Fluoroscopically guided lumbar puncture, 07/04/2018: History: Involuntary spastic movements, possible infection Under local anesthesia, aseptic conditions and fluoroscopic guidance a lumbar puncture was performed at the L2-3 level utilizing a 20-gauge spinal needle. Good clear CSF flow was obtained. 9 cc of CSF was removed and sent to lab for appropriate studies. The spinal needle was then removed and hemostasis obtained. 0.8 minutes of fluoroscopy time was utilized. One fluoroscopic spot image was recorded. The patient left the department in stable condition.
[2018-07-04] MEDS: ACYCLOVIR SODIUM 620 MG in IV DEXTROSE 5% 250 ML IV SCH ×2 (14:01→22:19)
[2018-07-04] MEDS: hydrALAZINE 20 MG/ML VIAL. IVP PRN (14:20)
[2018-07-04 15:00] VITALS: BP 135/91
--- NOTE | 2018-07-04 16:21 | PDOC ---
PROGRESS NOTES Assessment Assessment Status epilepticus, controlled on 07/02/18. Complex focal seizure went status epilepticus on 07/02/16. Metabolic encephalopathy. Hypertensive encephalopathy. Hypertensive emergency, BP 214/112 mmHg. Disorientation. Confusion. Abnormal chorea like movements in left UE. HTN, poorly controlled. DM. PVD. Smoking. Treponema Pallidum Ab positive. RECOMMENDATIONS/PLAN: Ativan 2 mg IV, Stat. Then q4h PRN for seizure. Decrease Keppra to 500 mg IV q12h. Depakote 500 mg q8h IV. Plan to discontinue Keppra. Brain MRI was unable to perform on him due to metallic projects at the floor of the left maxillary sinus. Treat medical diseases. BP control. EEG on 07/03/18: Asymmetric cerebral activity. Diffuse slowing in the right side hemispheric area. HISTORY OF THE PRESENT ILLNESS: This is a 63-y-old descent male patient admitted due to noted altered mental state changes with abnormal movements in left side. Per staff, girlfriend mentioned noting him to be disoriented and EMS was called. He speaks Albanian. He was noted with abnormal movements while on floor he was noted with seizure episodes. No seizure history reported by his girlfriend. No noted complains of any CP SOA leading to this event. No known hx of CAD but noted previously with PAD. It does not appear that he takes medications. Status epilepticus controlled after Ativan and Keppra administrations on 06/04/18 , but he has abnormal chorea like movements in his left UE. PAST MEDICAL HISTORY Cardiovascular: PAD; hx of asymptomatic SB. GI: GERD PAST SURGICAL HISTORY Left nephrectomy. FAMILY HISTORY Unknown SOCIAL HISTORY Smoke: <1 pack per day Lives: With friends ALLERGY: Unknown MEDICATIONS: Refer to [facility] REVIEW OF SYSTEMS: Constitutional: No malnutrition, cachexia. Head: No traumatic brain or head injury. Skin: No edema, or rash. Ear: No infection. Eyes: No vision loss or color blindness. Nose: No bleeding or purulent discharges. Hearing: No hearing decrease. Neck: No injury. Cardiac: HTN. Pulmonary: Smoking. GI: No GI ulcer, GI bleeding. Urinary/genital: No dysuria, incontinence, urinary retention. Endocrinologic: Diabetes Mellitus. Skeletomuscular: No muscular atrophy. Neurological: see HP. Psychiatric: Denies drug use/abuse. Otherwise, not [id number] review of systems. PHYSICAL EXAMINATION: General appearance is in subacute distress. HEENT: Normocephalic and nontraumatic. Eyes, nose, ears, and throat are unremarkable. Neck is supple. No lymphadenopathy. No crepitus. Cardiovascular: S1, S2, regular rate and rhythm. Pulmonary: No rales heard. Abdomen: Bowel sounds are positive. Extremities: No rash, lesions, or edema. No restriction of range of motion NEUROLOGICAL EXAMINATION: Sleepiness. Not oriented to time, place and person. PERRL. EOMI not elicited due to not follow commands nor speak much Cambodian. CN: no acute focal findings. Muscle tone: within normal. Muscle strength: 4 DTR: 3+. Plantar reflex: Neutral response bilaterally Gait: not examined in bed. Sensory exam: no acute abnormal findings. Not able to access cerebellar signs. F-T-N test not performed in unresponsive state. Left UE chorea like movements noted. Objective Objective Vital Signs Date Time Temp Pulse Resp B/P (MAP) Pulse Ox O2 Delivery O2 Flow Rate FiO2 07/04/18 15:00 98.0 120 18 135/91 (106) 96 98.0 07/04/18 07:40 Nasal Cannula 2.0 Intake and Output 07/04/18 07:00 Intake Total 1534.2 ml Balance 1534.2 ml Intake Oral 200 ml IV Total 1334.2 ml # Voids 4 # Bowel Movements 1 Vitals Signs Vitals VS - Last 72 Hours, by Label Date Time Temp Pulse Resp B/P (MAP) Pulse Ox O2 Delivery O2 Flow Rate FiO2 07/04/18 15:00 98.0 120 18 135/91 (106) 96 98.0 07/04/18 14:20 108 196/74 07/04/18 13:11 105 160/73 07/04/18 11:00 160/73 (102) 07/04/18 07:40 Nasal Cannula 2.0 07/04/18 07:40 Nasal Cannula 2.0 07/04/18 07:00 98.4 96 18 170/70 (103) 97 Nasal Cannula 2.0 98.4 07/04/18 05:07 97 146/85 07/04/18 03:20 98.6 97 20 146/85 (105) 95 Nasal Cannula 2.0 98.6 07/03/18 23:45 98.6 108 20 158/71 (100) 94 Nasal Cannula 2.0 98.6 07/03/18 23:31 114 179/77 07/03/18 20:46 114 179/77 (111) 07/03/18 20:06 90 219/97 07/03/18 20:00 Nasal Cannula 2.0 07/03/18 19:21 90 146/77 07/03/18 19:15 97.9 93 19 219/95 (136) 99 Nasal Cannula 2.0 97.9 07/03/18 15:11 97.8 90 18 146/77 (100) 98 Nasal Cannula 2.0 97.8 07/03/18 11:00 97.8 68 18 137/64 (88) 99 Nasal Cannula 2.0 97.8 07/03/18 08:00 Nasal Cannula 2.0 07/03/18 07:00 97.4 72 18 169/82 (111) 99 Nasal Cannula 2.0 97.4 Laboratory Laboratory Laboratory Tests Test 07/03/18 16:35 07/04/18 03:35 Erythrocyte Sedimentation Rate 20 (0-15) Procalcitonin < 0.10 ng/mL (0.00-0.10) Treponema pallidum Antibody Reactive (Nonreactive) Cytomegalovirus IgG Antibody >10.00 U/mL (0.00-0.59) Cytomegalovirus IgM Antibody <30.0 AU/mL (0.0-29.9) Hepatitis A IgM Antibody Nonreactive (Nonreactive) Hepatitis B Surface Antigen Nonreactive (Nonreactive) Hepatitis B Core IgM Antibody Nonreactive (Nonreactive) Hepatitis C IgG Antibody Nonreactive (Nonreactive) HIV (1&2) Antibody Screen Nonreactive (Nonreactive) White Blood Count 10.4 x10^3/uL (4.0-11.0) Red Blood Count 5.43 x10^6/uL (4.30-5.70) Hemoglobin 13.5 g/dL (13.0-17.5) Hematocrit 41.0 % (39.0-53.0) Mean Corpuscular Volume 76 fL (79-100) Mean Corpuscular Hemoglobin 25 pg (25-35) Mean Corpuscular Hemoglobin Concent 33 g/dL (31-37) Red Cell Distribution Width 14.6 % (11.5-14.5) Platelet Count 186 x10^3/uL (140-400) Neutrophils (%) (Auto) 77 % (31-73) Lymphocytes (%) (Auto) 11 % (24-48) Monocytes (%) (Auto) 9 % (0-9) Eosinophils (%) (Auto) 2 % (0-3) Basophils (%) (Auto) 1 % (0-3) Neutrophils # (Auto) 8.0 x10^3uL (1.8-7.7) Lymphocytes # (Auto) 1.1 x10^3/uL (1.0-4.8) Monocytes # (Auto) 1.0 x10^3/uL (0.0-1.1) Eosinophils # (Auto) 0.2 x10^3/uL (0.0-0.7) Basophils # (Auto) 0.0 x10^3/uL (0.0-0.2) Sodium Level 138 mmol/L (136-145) Potassium Level 4.3 mmol/L (3.5-5.1) Chloride Level 102 mmol/L (98-107) Carbon Dioxide Level 24 mmol/L (21-32) Anion Gap 12 (6-14) Blood Urea Nitrogen 17 mg/dL (8-26) Creatinine 1.0 mg/dL (0.7-1.3) Estimated GFR (Cockcroft-Gault) 75.5 BUN/Creatinine Ratio 17 (6-20) Glucose Level 111 mg/dL (70-99) Calcium Level 8.8 mg/dL (8.5-10.1) Total Bilirubin 1.3 mg/dL (0.2-1.0) Aspartate Amino Transf (AST/SGOT) 29 U/L (15-37) Alanine Aminotransferase (ALT/SGPT) 26 U/L (16-63) Alkaline Phosphatase 85 U/L (46-116) Total Protein 7.9 g/dL (6.4-8.2) Albumin 3.0 g/dL (3.4-5.0) Albumin/Globulin Ratio 0.6 (1.0-1.7) Microbiology 07/02/18 Blood Culture - Preliminary, Resulted NO GROWTH AFTER 1 DAY Medication Medications Current Medications Acyclovir Sodium 620 mg/Dextrose 262.4 ml @ 262.4 mls/ hr Q8HRS IV Last administered on 07/04/18at 14:01; Start 07/04/18 at 14:00 Amino Acids/ Glycerin/ Electrolytes 1,000 ml @ 80 mls/hr [id number] IV Last administered on 07/03/18at 19:41; Start 07/03/18 at 19:15 Divalproex Sodium (Depakote) 500 mg BID PO ; Start 07/03/18 at 21:00 Lactobacillus Rhamnosus (Culturelle) 1 cap BID PO ; Start 07/04/18 at 21:00 Levetiracetam 500 mg/Dextrose 105 ml @ 420 mls/hr Q12HR IV Last administered on 07/04/18at 11:29; Start 07/03/18 at 21:00 Vancomycin HCl (Vancomycin Trough Level) 1 each 1X ONCE MC ; Start 07/05/18 at 05:30; Stop 07/05/18 at 05:31 Vancomycin HCl 1 gm/Sodium Chloride 250 ml @ 250 mls/hr Q12H IV Last administered on 07/04/18at 05:27; Start 07/04/18 at 06:00 Comment Review of Relevant I have reviewed the following items kendrick (where applicable) has been applied. NICOLÁS CAMPOS MD Jul 04, 2018 16:21
[2018-07-04] MEDS: VALPROIC ACID (AS SODIUM SALT) 500 MG in IV DEXTROSE 5% 50 ML IV SCH (18:05)
[2018-07-04 19:05] VITALS: BP 156/72
[2018-07-04] MEDS: LACTOBACILLUS RHAMNOSUS GG 1 CAPSULE. PO SCH (21:00)
[2018-07-04] MEDS: CEFEPIME HCL IV Push 1 GM VIAL. IVP SCH (22:21)
[2018-07-04 22:22] VITALS: BP 117/70
[2018-07-05] VITALS (7 sets, daily range): BP systolic 103–169; BP diastolic 44–100
[2018-07-05] MEDS: NITROGLYCERIN OINT 1 GM PACKET. TP SCH ×4 (01:00→17:36)
[2018-07-05] MEDS: VALPROIC ACID (AS SODIUM SALT) 500 MG in IV DEXTROSE 5% 50 ML IV SCH ×4 (01:14→22:10)
--- NOTE | 2018-07-05 01:46 | NUR ---
Significant other, Chelsie, states that the patient has had in-person contact with persons from the [facility] within the last few weeks.
[2018-07-05] MEDS: ACYCLOVIR SODIUM 620 MG in IV DEXTROSE 5% 250 ML IV SCH (05:05)
[2018-07-05 05:33] LABS: GFR 75.5
[2018-07-05] MEDS: CEFEPIME HCL IV Push 1 GM VIAL. IVP SCH ×3 (06:00→22:11)
[2018-07-05] MEDS: ASPIRIN CHEWABLE 81 MG TABLET. PO SCH (09:00)
[2018-07-05] MEDS: LACTOBACILLUS RHAMNOSUS GG 1 CAPSULE. PO SCH ×2 (09:00→20:47)
--- NOTE | 2018-07-05 09:10 | PDOC ---
Infectious Disease Note Subjective: Subjective Pt is more alert today answers more questions than before denies any headache, fevers, nausea, neck pain, abdo pain does say yes when asked if he is at a hospital Continues to have tremors especially left upper extremity facial twitching continues Denies any h/o trauma prior to admission ROS: ROS Limited d/w RN Vital Signs: Vital Signs Vital Signs Date Time Temp Pulse Resp B/P (MAP) Pulse Ox O2 Delivery O2 Flow Rate FiO2 07/05/18 07:00 98.0 72 18 156/65 (95) 98 Room Air 98.0 07/04/18 20:00 2.0 Physical Exam: PHYSICAL EXAM GENERAL: The patient is lying in bed, in no acute distress, continues to have involuntary movement of the left side, cooperative, not combative. Unable to verbalize, keeps on mumbling in english HEENT: Normocephalic and atraumatic. Anicteric. No thrush. Oral mucosa dry. No sinus tenderness.poor dentition NECK: Supple. No JVD. No lymphadenopathy. LUNGS: dec breath sounds gary both lungs HEART: S1 and S2. No murmurs. ABDOMEN: Soft, nontender and nondistended. EXTREMITIES: No edema and no cyanosis. DERMATOLOGICAL: Warm and dry. No generalized rash. CENTRAL NERVOUS SYSTEM: Facial twitching ,tremors in bilateral upper extremity. Left greater than right. Moves all 4 extremities. awake, answers a few questions, more today than before Medications: Inpatient Meds: Current Medications Medications (Trade) Dose Ordered Sig/Gloria Start Time Stop Time Status Last Admin Dose Admin Acetaminophen (Tylenol) 650 mg PRN Q4HRS PRN 07/02/18 15:45 Acyclovir Sodium 620 mg/Dextrose 112.4 ml @ 112.4 mls/ hr Q8HRS 07/05/18 14:00 Acyclovir Sodium 730 mg/Dextrose 264.6 ml @ 264.6 mls/ hr Q8HRS 07/03/18 15:00 07/04/18 12:26 DC 07/04/18 05:07 264.6 MLS/HR Al Hydroxide/Mg Hydroxide (Mylanta Plus Xs) 30 ml PRN DAILY PRN 07/02/18 15:45 Albuterol Sulfate (Ventolin Neb Soln) 2.5 mg PRN Q4HRS PRN 07/02/18 15:45 Amino Acids/ Glycerin/ Electrolytes 1,000 ml @ 80 mls/hr [id number] 07/03/18 19:15 07/04/18 21:17 80 MLS/HR Ampicillin Sodium 2 gm/Sodium Chloride 100 ml @ 200 mls/hr Q4HRS 07/03/18 16:00 07/04/18 18:56 DC 07/04/18 16:24 200 MLS/HR Aspirin (Children'S Aspirin) 81 mg DAILY 07/03/18 09:00 Cefepime HCl (Maxipime) 1 gm Q8HRS 07/04/18 22:00 07/05/18 06:00 1 GM Clonidine HCl (Catapres) 0.1 mg PRN Q6HRS PRN 07/02/18 15:45 Diphenhydramine HCl (Benadryl) 25 mg PRN Q4HRS PRN 07/02/18 15:45 Divalproex Sodium (Depakote) 500 mg BID 07/03/18 21:00 07/04/18 16:20 DC Docusate Sodium (Colace) 100 mg PRN BID PRN 07/02/18 15:45 Enoxaparin Sodium (Lovenox 40mg Syringe) 40 mg DAILY 07/03/18 09:00 Guaifenesin (Robitussin) 200 mg PRN Q4HRS PRN 07/02/18 15:45 Hydralazine HCl (Apresoline Inj) 10 mg PRN Q4HRS PRN 07/02/18 16:45 07/04/18 14:20 10 MG Lactobacillus Rhamnosus (Culturelle) 1 cap BID 07/04/18 21:00 Levetiracetam 500 mg/Dextrose 105 ml @ 420 mls/hr Q12HR 07/03/18 21:00 07/04/18 21:11 420 MLS/HR Levetiracetam 750 mg/Dextrose 107.5 ml @ 420 mls/hr Q12HR 07/02/18 16:30 07/03/18 14:17 DC 07/03/18 09:35 420 MLS/HR Lorazepam (Ativan) 2 mg PRN Q4HRS PRN 07/02/18 18:30 Nitroglycerin (Nitro-Bid Oint) 0.5 inch Q6HRS 07/02/18 17:30 07/05/18 06:01 0.5 INCH Ondansetron HCl (Zofran) 4 mg PRN Q4HRS PRN 07/02/18 15:45 Sodium Monofluorophosphate (Fleet Adult) 133 ml PRN DAILY PRN 07/02/18 15:45 Sodium Chloride 1,000 ml @ 100 mls/hr Q10H 07/02/18 16:30 07/04/18 16:37 DC 07/02/18 16:04 100 MLS/HR Sodium Chloride (Normal Saline Flush 3ml) 3 ml QSHIFT PRN 07/02/18 15:45 Valproic Acid 500 mg/Dextrose 55 ml @ 55 mls/hr Q8HRS 07/04/18 17:00 07/05/18 06:00 55 MLS/HR Vancomycin HCl (Vanco Per Pharmacy) 1 each PRN DAILY PRN 07/03/18 14:15 07/04/18 18:56 DC 07/04/18 12:31 1 EACH Vancomycin HCl (Vancomycin Trough Level) 1 each 1X ONCE 07/05/18 05:30 07/05/18 05:31 Cancel Vancomycin HCl 1.5 gm/Sodium Chloride 500 ml @ 250 mls/hr 1X ONCE 07/03/18 15:00 07/03/18 16:59 DC 07/03/18 17:54 250 MLS/HR Vancomycin HCl 1 gm/Sodium Chloride 250 ml @ 250 mls/hr Q12H 07/04/18 06:00 07/04/18 18:58 DC 07/04/18 18:45 250 MLS/HR Zolpidem Tartrate (Ambien) 5 mg PRN QHS PRN 07/02/18 15:45 Labs: Lab Laboratory Tests Test 07/05/18 04:30 Creatinine 1.0 mg/dL (0.7-1.3) Estimated GFR (Cockcroft-Gault) 75.5 Objective: Assessment: 1. Encephalopathy, likely metabolic though pt is not able to give any history, no family at bedside. Unable to obtain MRI as the patient has metallic fragments in the floor of the left maxillary sinus. 2. Status epilepticus. on keppra 3. 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 4. Hypertensive encephalopathy. 5. Disorientation,Confusion. 6. TPPA positive,syphilis unknown status, RPR still pending, HIV negative, Acute hepatitis panel neg 7. History of incarceration more than 20 years ago. 8. Diabetes. 9. Peripheral vascular disease. 10. Smoking. 11. Left nephrectomy. 12. Peripheral arterial disease. 13. Gastroesophageal reflux disease. 14. Aspiration Pneumonitis 15. Tremors ? etiology could be from noninfectious etiology Plan: Plan of Care cont IV cefepime , cont IV acyclovir pending CSF HSV PCR. f/u CSF studies including VDRL f/u RPR and other infectious disease serologies Pt unable to give details about Syphilis treatment, will need to complete treatment for possible neurosyphilis Follow up renal functions closely. Follow up labs closely. Maintain aspiration precaution. Maintain fluid balance. Monitor electrolytes closely. DC Droplet precautions Neurology following SHAI RAYO MD Jul 05, 2018 09:10
[2018-07-05] MEDS: ENOXAPARIN 40 MG/0.4 ML SYRINGE. SQ SCH (09:19)
[2018-07-05] MEDS: levETIRAcetam 500 MG in IV DEXTROSE 5% 100ML 100 ML IV SCH ×2 (09:33→20:47)
--- NOTE | 2018-07-05 10:56 | PDOC ---
PROGRESS NOTES History of Present Illness History of Present Illness Assessment/Plan Assessment/Plan IMPRESSION IMPRESSION: Complex focal seizure /// status epilepticus on 07/02/16. tremors No acute intracranial finding. Note is made that MRI is more sensitive for acute infarction. Metallic density projects over the floor of the left maxillary sinus. No definite orbital foreign body is seen. Decreased attenuation within the cerebral white matter, likely due to chronic small vessel disease. Cerebral atrophy. ELEVATED TROPONIN I SYPHYLIS SCREEN AB POS rpr pending 1. No evidence of aneurysm or occlusion identified. PLAN LP reviewed Cardiac monitoring Serial Enzymes Serial EKGs Home meds Neurology consult IV ATIVAN PRN SEIZURE ACTIVITY DVT PROPHYLAXIS CARDIOLOGY CONSULT seizure precautions mri on hold TB TEST tb spot pending ID CONSULT iv cefipime 1 gm q 8 hrs 48 min pt exam, chart review,> 50% of time with pt exam, chart review, pt care coordination Vitals Vitals Vital Signs Date Time Temp Pulse Resp B/P (MAP) Pulse Ox O2 Delivery O2 Flow Rate FiO2 07/05/18 08:00 Room Air 07/05/18 07:00 98.0 72 18 156/65 (95) 98 98.0 07/04/18 20:00 2.0 Physical Exam Physical Exam GENERAL: The patient is lying in bed, MILD acute distress, continues to have involuntary movement of the left side, cooperative, not combative. Unable to verbalize, mumbling in japanese HEENT: Normocephalic and atraumatic. Anicteric. No thrush. Oral mucosa dry. No sinus tenderness.poor dentition NECK: Supple. No JVD. No lymphadenopathy. LUNGS: dec breath sounds gary both lungs HEART: S1 and S2. No murmurs. ABDOMEN: Soft, nontender and nondistended. EXTREMITIES: No edema and no cyanosis. DERMATOLOGICAL: Warm and dry. No generalized rash. CENTRAL NERVOUS SYSTEM: Facial twitching ,tremors in bilateral upper extremity. Left greater than right. Moves all 4 extremities. awake, answers a few questions, , UNABLE TO INTERPRET General: Cooperative, mild distress, Other (disoriented, unable to communicate needs) Heart: Regular rate (SR), Normal S1, Normal S2, No murmurs, Other (2/6 systolic murmur to LLS border) Lungs: Clear Abdomen: Normal bowel sounds, Soft, No hepatosplenomegaly Extremities: No clubbing, No cyanosis, No edema, Other (INVOLUNTARY LEFT ARM MOVEMENTS) Skin: No breakdown Labs LABS PATIENT: ZAMZAM DUENAS ACCOUNT: [id number] : 1955 LOCATION: 2 [address]OUTH AGE: 63 SEX: M EXAM STATUS: ADM IN ORD. PHYSICIAN: NICOLÁS CAMPOS MD REASON: Complex partial seizure/status epilepticus. No MRI due to metallic item. PROCEDURE: CT ANGIOGRAPHY HEAD Examination: CT angiography head HISTORY: History of chronic left arm twitching, complex partial seizures History: Chronic left arm tingling ,Complex partial seizures COMPARISON: None available Technique: Axial CT angiographic images of the head was performed with IV contrast. Coronal and Sagittal 3-D MIP reformats are performed. Stenosis calculations for CT, MR, and conventional angiography are based upon measurements of the distal ICA diameter in accordance with the NASCET methodology. Stenosis calculations for carotid ultrasound studies are derived from validated velocity criteria which are known to correlate with the NASCET methodology. Exposure: One or more of the following individualized dose reduction techniques were utilized for this examination: 1. Automated exposure control 2. Adjustment of the mA and/or kV according to patient size 3. Use of iterative reconstruction technique FINDINGS: The visualized petrous, cavernous internal carotid arteries are patent. Mild atherosclerotic calcifications identified in the cavernous internal carotid arteries. The visualized middle cerebral arteries, anterior cerebral arteries are patent. The anterior communicating artery is patent. origin of the left posterior cerebral artery is identified. The bilateral vertebral arteries, basilar arteries are patent. The right posterior cerebral arteries. IMPRESSION: 1. No evidence of aneurysm or occlusion identified. Electronically signed by: Hussain Maldonado MD (07/05/2018 1:17 PM) [id number] Laboratory Tests Test 07/05/18 04:30 Creatinine 1.0 mg/dL (0.7-1.3) Estimated GFR (Cockcroft-Gault) 75.5 Assessment and Plan Assessmemt and Plan Problems Medical Problems: (1) Elevated troponin Status: Acute (2) Tremor Status: Acute Comment Review of Relevant I have reviewed the following items kendrick (where applicable) has been applied. Labs Laboratory Tests Test 07/03/18 16:35 07/04/18 03:35 3/29/19 04:30 Erythrocyte Sedimentation Rate 20 (0-15) Procalcitonin < 0.10 ng/mL (0.00-0.10) Treponema pallidum Antibody Reactive (Nonreactive) Cytomegalovirus IgG Antibody >10.00 U/mL (0.00-0.59) Cytomegalovirus IgM Antibody <30.0 AU/mL (0.0-29.9) Hepatitis A IgM Antibody Nonreactive (Nonreactive) Hepatitis B Surface Antigen Nonreactive (Nonreactive) Hepatitis B Core IgM Antibody Nonreactive (Nonreactive) Hepatitis C IgG Antibody Nonreactive (Nonreactive) HIV (1&2) Antibody Screen Nonreactive (Nonreactive) White Blood Count 10.4 x10^3/uL (4.0-11.0) Red Blood Count 5.43 x10^6/uL (4.30-5.70) Hemoglobin 13.5 g/dL (13.0-17.5) Hematocrit 41.0 % (39.0-53.0) Mean Corpuscular Volume 76 fL (79-100) Mean Corpuscular Hemoglobin 25 pg (25-35) Mean Corpuscular Hemoglobin Concent 33 g/dL (31-37) Red Cell Distribution Width 14.6 % (11.5-14.5) Platelet Count 186 x10^3/uL (140-400) Neutrophils (%) (Auto) 77 % (31-73) Lymphocytes (%) (Auto) 11 % (24-48) Monocytes (%) (Auto) 9 % (0-9) Eosinophils (%) (Auto) 2 % (0-3) Basophils (%) (Auto) 1 % (0-3) Neutrophils # (Auto) 8.0 x10^3uL (1.8-7.7) Lymphocytes # (Auto) 1.1 x10^3/uL (1.0-4.8) Monocytes # (Auto) 1.0 x10^3/uL (0.0-1.1) Eosinophils # (Auto) 0.2 x10^3/uL (0.0-0.7) Basophils # (Auto) 0.0 x10^3/uL (0.0-0.2) Sodium Level 138 mmol/L (136-145) Potassium Level 4.3 mmol/L (3.5-5.1) Chloride Level 102 mmol/L (98-107) Carbon Dioxide Level 24 mmol/L (21-32) Anion Gap 12 (6-14) Blood Urea Nitrogen 17 mg/dL (8-26) Creatinine 1.0 mg/dL (0.7-1.3) 1.0 mg/dL (0.7-1.3) Estimated GFR (Cockcroft-Gault) 75.5 75.5 BUN/Creatinine Ratio 17 (6-20) Glucose Level 111 mg/dL (70-99) Calcium Level 8.8 mg/dL (8.5-10.1) Total Bilirubin 1.3 mg/dL (0.2-1.0) Aspartate Amino Transf (AST/SGOT) 29 U/L (15-37) Alanine Aminotransferase (ALT/SGPT) 26 U/L (16-63) Alkaline Phosphatase 85 U/L (46-116) Total Protein 7.9 g/dL (6.4-8.2) Albumin 3.0 g/dL (3.4-5.0) Albumin/Globulin Ratio 0.6 (1.0-1.7) Laboratory Tests Test 07/05/18 04:30 Creatinine 1.0 mg/dL (0.7-1.3) Estimated GFR (Cockcroft-Gault) 75.5 Microbiology 07/02/18 Blood Culture - Preliminary, Resulted NO GROWTH AFTER 2 DAYS Medications Current Medications Sodium Chloride 1,000 ml @ 1,000 mls/hr 1X ONCE IV Last administered on at 10:00; Start 07/02/18 at 10:00; Stop 07/02/18 at 10:59; Status DC Lorazepam (Ativan) 0.5 mg 1X ONCE IV Last administered on 07/02/18at 12:12; Start 07/02/18 at 12:30; Stop 07/02/18 at 12:31; Status DC Aspirin (Children'S Aspirin) 324 mg 1X ONCE PO Last administered on 07/02/18at 13:18; Start 07/02/18 at 13:30; Stop 07/02/18 at 13:31; Status DC Acetaminophen (Tylenol) 650 mg PRN Q4HRS PRN PO FEVER; Start 07/02/18 at 14:30 ; Stop 07/02/18 at 18:38; Status DC Lorazepam (Ativan) 2 mg PRN Q4HRS PRN IV ANXIETY / AGITATION Last administered on 07/02/18at 17:58; Start 07/02/18 at 15:30 Levetiracetam 750 mg/Dextrose 107.5 ml @ 420 mls/hr Q12HR IV Last administered on 07/03/18at 09:35; Start 07/02/18 at 16:30; Stop 07/03/18 at 14:17 ; Status DC Sodium Chloride (Normal Saline Flush 3ml) 3 ml QSHIFT PRN IV AFTER MEDS AND BLOOD DRAWS; Start 07/02/18 at 15:45 Sodium Chloride 1,000 ml @ 100 mls/hr Q10H IV Last administered on 07/02/18at 16:04; Start 07/02/18 at 16:30; Stop 07/04/18 at 16:37; Status DC Ondansetron HCl (Zofran) 4 mg PRN Q4HRS PRN IV NAUSEA/VOMITING; Start 07/02/18 at 15:45 Zolpidem Tartrate (Ambien) 5 mg PRN QHS PRN PO INSOMNIA; Start 07/02/18 at 15: 45 Acetaminophen (Tylenol) 650 mg PRN Q4HRS PRN PO TEMP OVER 100.4F OR MILD PAIN; Start 07/02/18 at 15:45 Al Hydroxide/Mg Hydroxide (Mylanta Plus Xs) 30 ml PRN DAILY PRN PO HEARTBURN / GAS; Start 07/02/18 at 15:45 Clonidine HCl (Catapres) 0.1 mg PRN Q6HRS PRN PO SBP>160 OR DBP>90; Start 07/02 at 15:45 Sodium Monofluorophosphate (Fleet Adult) 133 ml PRN DAILY PRN NV CONSTIPATION; Start 07/02/18 at 15:45 Diphenhydramine HCl (Benadryl) 25 mg PRN Q4HRS PRN IVP ITCHING; Start 07/02/18 at 15:45 Docusate Sodium (Colace) 100 mg PRN BID PRN PO CONSTIPATION; Start 07/02/18 at 15:45 Albuterol Sulfate (Ventolin Neb Soln) 2.5 mg PRN Q4HRS PRN NEB SHORTNESS OF BREATH; Start 07/02/18 at 15:45 Guaifenesin (Robitussin) 200 mg PRN Q4HRS PRN PO COUGH; Start 07/02/18 at 15:45 Lorazepam (Ativan) 0.5 mg PRN Q4HRS PRN PO ANXIETY / AGITATION; Start 07/02/18 at 15:45 Enoxaparin Sodium (Lovenox 40mg Syringe) 40 mg DAILY SQ Last administered on at 09:19; Start 07/03/18 at 09:00 Hydralazine HCl (Apresoline Inj) 10 mg PRN Q4HRS PRN IVP ELEVATED BP, SEE COMMENTS Last administered on 07/04/18at 14:20; Start 07/02/18 at 16:45 Nitroglycerin (Nitro-Bid Oint) 0.5 inch Q6HRS TP Last administered on at 06:01; Start 07/02/18 at 17:30 Aspirin (Children'S Aspirin) 81 mg DAILY PO ; Start 07/03/18 at 09:00 Lorazepam (Ativan) 2 mg PRN Q4HRS PRN IV ALCOHOL WITHDRAWAL; Start 07/02/18 at 18:30 Cefepime HCl (Maxipime) 2 gm Q8HRS IVP Last administered on 07/04/18at 14:00; Start 07/03/18 at 14:30; Stop 07/04/18 at 18:56; Status DC Acyclovir Sodium 730 mg/Dextrose 264.6 ml @ 264.6 mls/ hr Q8HRS IV Last administered on 07/04/18at 05:07; Start 07/03/18 at 15:00; Stop 07/04/18 at 12:26 ; Status DC Vancomycin HCl (Vanco Per Pharmacy) 1 each PRN DAILY PRN MC SEE COMMENTS Last administered on 07/04/18at 12:31; Start 07/03/18 at 14:15; Stop 07/04/18 at 18:56 ; Status DC Ampicillin Sodium 2 gm/Sodium Chloride 100 ml @ 200 mls/hr Q4HRS IV Last administered on 07/04/18at 16:24; Start 07/03/18 at 16:00; Stop 07/04/18 at 18:56 ; Status DC Vancomycin HCl 1.5 gm/Sodium Chloride 500 ml @ 250 mls/hr 1X ONCE IV Last administered on 07/03/18at 17:54; Start 07/03/18 at 15:00; Stop 07/03/18 at 16:59 ; Status DC Levetiracetam 500 mg/Dextrose 105 ml @ 420 mls/hr Q12HR IV Last administered on 07/05/18at 09:33; Start 07/03/18 at 21:00 Divalproex Sodium (Depakote) 500 mg BID PO ; Start 07/03/18 at 21:00; Stop 07/04 at 16:20; Status DC Vancomycin HCl 1 gm/Sodium Chloride 250 ml @ 250 mls/hr Q12H IV Last administered on 07/04/18at 18:45; Start 07/04/18 at 06:00; Stop 07/04/18 at 18:58 ; Status DC Vancomycin HCl (Vancomycin Trough Level) 1 each 1X ONCE MC ; Start 07/05/18 at 05:30; Stop 07/05/18 at 05:31; Status Cancel Amino Acids/ Glycerin/ Electrolytes 1,000 ml @ 80 mls/hr [id number] IV Last administered on 07/04/18at 21:17; Start 07/03/18 at 19:15 Acyclovir Sodium 620 mg/Dextrose 262.4 ml @ 262.4 mls/ hr Q8HRS IV Last administered on 07/05/18at 05:05; Start 07/04/18 at 14:00; Stop 07/05/18 at 13:59 Lactobacillus Rhamnosus (Culturelle) 1 cap BID PO ; Start 07/04/18 at 21:00 Valproic Acid 500 mg/Dextrose 55 ml @ 55 mls/hr Q8HRS IV Last administered on at 06:00; Start 07/04/18 at 17:00 Acyclovir Sodium 620 mg/Dextrose 112.4 ml @ 112.4 mls/ hr Q8HRS IV ; Start at 14:00 Cefepime HCl (Maxipime) 1 gm Q8HRS IVP Last administered on 07/05/18at 06:00; Start 07/04/18 at 22:00 Active Scripts Active Reported Zithromax (Azithromycin) 500 Mg Tablet 1 Tab PO DAILY Aspirin 81 Mg Tab.chew 81 Mg PO DAILY Hydrocodone-Apap 5-325 (Hydrocodone Bit/Acetaminophen) 1 Tab Tablet 1 Tab PO PRN Q6HRS PRN Vitals/I & O Vital Sign - Last 24 Hours 07/04/18 07/04/18 07/04/18 07/04/18 11:00 13:11 14:20 15:00 Temp 98.0 98.0 Pulse 105 108 120 Resp 18 B/P (MAP) 160/73 (102) 160/73 196/74 135/91 (106) Pulse Ox 96 07/04/18 07/04/18 07/04/18 07/04/18 18:07 19:05 20:00 22:22 Temp 98.3 98.3 Pulse 113 118 95 Resp 18 18 B/P (MAP) 151/96 156/72 (100) 117/70 (86) Pulse Ox 99 97 O2 Delivery Room Air Nasal Cannula Room Air O2 Flow Rate 2.0 07/05/18 07/05/18 07/05/18 07/05/18 01:00 03:00 04:27 06:01 Temp 98.3 98.3 Pulse 95 115 115 Resp 16 B/P (MAP) 117/70 169/100 (123) 169/100 Pulse Ox 97 O2 Delivery Room Air Room Air 07/05/18 07/05/18 07:00 08:00 Temp 98.0 98.0 Pulse 72 Resp 18 B/P (MAP) 156/65 (95) Pulse Ox 98 O2 Delivery Room Air Room Air Intake and Output 07/04/18 07/04/18 07/05/18 15:00 23:00 07:00 Intake Total 879 ml 262.4 ml Balance 879 ml 262.4 ml Nutrition Consultation Dietary Evaluation: Recommendations by RD: PPN/TPN Comments: Continue PPN for short-term nutrition needs If extented NPO (>7 days), recommend consideration of dobhoff placement for TF to better meet nutrition needs Expected Outcomes/Goals: Diet advancement Interpretation of weight loss: >7.5% in 3 months Malnutrition Findings: Weight Status: Appropriate LINDA ECHEVARRIA MD Jul 05, 2018 10:56
[2018-07-05] MEDS ORDERED: IOHEXOL 350 MG/ML 100 ML VIAL. IV ONE (11:15)
[2018-07-05] MEDS ORDERED: CONTRAST GIVEN. MC PRN (11:30)
[2018-07-05] MEDS: AMINO AC 3%/ELECTROLYTE/GLYCER 1,000 ML IV SCH ×2 (12:03→21:15)
--- NOTE | 2018-07-05 12:21 | PDOC ---
PROGRESS NOTES Assessment Assessment Status epilepticus, controlled on 07/02/18. Complex focal seizure went status epilepticus on 07/02/16. Metabolic encephalopathy. Hypertensive encephalopathy. Hypertensive emergency, BP 214/112 mmHg. Disorientation. Confusion. Abnormal chorea like movements in left UE. HTN, poorly controlled. DM. PVD. Smoking. Treponema Pallidum Ab positive. RECOMMENDATIONS/PLAN: Ativan 2 mg IV, Stat. Then q4h PRN for seizure. Decreased Keppra to 500 mg IV q12h. Continue Depakote 500 mg q8h IV. Plan to discontinue Keppra. Brain MRI was unable to perform on him due to metallic projects at the floor of the left maxillary sinus. CTA head. Lab: see orders. Treat medical diseases. Consulted ID. BP control. EEG on 07/03/18: Asymmetric cerebral activity. Diffuse slowing in the right side hemispheric area. HISTORY OF THE PRESENT ILLNESS: This is a 63-y-old descent male patient admitted due to noted altered mental state changes with abnormal movements in left side. Per staff, girlfriend mentioned noting him to be disoriented and EMS was called. He speaks Tajik. He was noted with abnormal movements while on floor he was noted with seizure episodes. No seizure history reported by his girlfriend. No noted complains of any CP SOA leading to this event. No known hx of CAD but noted previously with PAD. It does not appear that he takes medications. Status epilepticus controlled after Ativan and Keppra administrations on 06/04/18 , but he has abnormal chorea like movements in his left UE. PAST MEDICAL HISTORY Cardiovascular: PAD; hx of asymptomatic SB. GI: GERD PAST SURGICAL HISTORY Left nephrectomy. FAMILY HISTORY Unknown SOCIAL HISTORY Smoke: <1 pack per day Lives: With friends ALLERGY: Unknown MEDICATIONS: Refer to MAR REVIEW OF SYSTEMS: Constitutional: No malnutrition, cachexia. Head: No traumatic brain or head injury. Skin: No edema, or rash. Ear: No infection. Eyes: No vision loss or color blindness. Nose: No bleeding or purulent discharges. Hearing: No hearing decrease. Neck: No injury. Cardiac: HTN. Pulmonary: Smoking. GI: No GI ulcer, GI bleeding. Urinary/genital: No dysuria, incontinence, urinary retention. Endocrinologic: Diabetes Mellitus. Skeletomuscular: No muscular atrophy. Neurological: see HP. Psychiatric: Denies drug use/abuse. Otherwise, not [id number] review of systems. PHYSICAL EXAMINATION: General appearance is in subacute distress. HEENT: Normocephalic and nontraumatic. Eyes, nose, ears, and throat are unremarkable. Neck is supple. No lymphadenopathy. No crepitus. Cardiovascular: S1, S2, regular rate and rhythm. Pulmonary: No rales heard. Abdomen: Bowel sounds are positive. Extremities: No rash, lesions, or edema. No restriction of range of motion NEUROLOGICAL EXAMINATION: Sleepiness. Not oriented to time, place and person. PERRL. EOMI not elicited due to not follow commands nor speak much Bolivian. CN: no acute focal findings. Muscle tone: within normal. Muscle strength: 4 DTR: 3+. Plantar reflex: Neutral response bilaterally Gait: not examined in bed. Sensory exam: no acute abnormal findings. Not able to access cerebellar signs. F-T-N test not performed in unresponsive state. Left UE chorea like movements improved.. Objective Objective Vital Signs Date Time Temp Pulse Resp B/P (MAP) Pulse Ox O2 Delivery O2 Flow Rate FiO2 07/05/18 12:01 102 136/73 07/05/18 11:39 98.3 16 Room Air 98.3 07/05/18 07:00 98 07/04/18 20:00 2.0 Intake and Output 07/05/18 07:00 Intake Total 1141.4 ml Balance 1141.4 ml Intake Oral 0 ml IV Total 1141.4 ml # Voids 5 Vitals Signs Vitals VS - Last 72 Hours, by Label Date Time Temp Pulse Resp B/P (MAP) Pulse Ox O2 Delivery O2 Flow Rate FiO2 07/05/18 12:01 102 136/73 07/05/18 11:39 98.3 102 16 136/73 (94) Room Air 98.3 07/05/18 08:00 Room Air 07/05/18 07:00 98.0 72 18 156/65 (95) 98 Room Air 98.0 07/05/18 06:01 115 169/100 07/05/18 04:27 98.3 115 16 169/100 (123) 97 Room Air 98.3 07/05/18 03:00 Room Air 07/05/18 01:00 95 117/70 3/28/19 22:22 98.3 95 18 117/70 (86) 97 Room Air 98.3 07/04/18 20:00 Nasal Cannula 2.0 07/04/18 19:05 118 18 156/72 (100) 99 Room Air 07/04/18 18:07 113 151/96 07/04/18 15:00 98.0 120 18 135/91 (106) 96 98.0 07/04/18 14:20 108 196/74 07/04/18 13:11 105 160/73 07/04/18 11:00 160/73 (102) 07/04/18 07:40 Nasal Cannula 2.0 07/04/18 07:40 Nasal Cannula 2.0 07/04/18 07:00 98.4 96 18 170/70 (103) 97 Nasal Cannula 2.0 98.4 Laboratory Laboratory Laboratory Tests Test 07/05/18 04:30 Creatinine 1.0 mg/dL (0.7-1.3) Estimated GFR (Cockcroft-Gault) 75.5 Microbiology 07/02/18 Blood Culture - Preliminary, Resulted NO GROWTH AFTER 2 DAYS Medication Medications Current Medications Acyclovir Sodium 620 mg/Dextrose 112.4 ml @ 112.4 mls/ hr Q8HRS IV ; Start at 14:00 Acyclovir Sodium 620 mg/Dextrose 262.4 ml @ 262.4 mls/ hr Q8HRS IV Last administered on 07/05/18at 05:05; Start 07/04/18 at 14:00; Stop 07/05/18 at 13:59 Cefepime HCl (Maxipime) 1 gm Q8HRS IVP Last administered on 07/05/18at 06:00; Start 07/04/18 at 22:00 Info (CONTRAST GIVEN -- Rx MONITORING) 1 each PRN DAILY PRN MC SEE COMMENTS; Start 07/05/18 at 11:30; Stop 07/07/18 at 11:29 Iohexol (Omnipaque 350 Mg/ml) 75 ml 1X ONCE IV Last administered on 07/05/18at 11:45; Start 07/05/18 at 11:15; Stop 07/05/18 at 11:16; Status DC Lactobacillus Rhamnosus (Culturelle) 1 cap BID PO ; Start 07/04/18 at 21:00 Valproic Acid 500 mg/Dextrose 55 ml @ 55 mls/hr Q8HRS IV Last administered on at 06:00; Start 07/04/18 at 17:00 Vancomycin HCl (Vancomycin Trough Level) 1 each 1X ONCE MC ; Start 07/05/18 at 05:30; Stop 07/05/18 at 05:31; Status Cancel Comment Review of Relevant I have reviewed the following items kendrick (where applicable) has been applied. NICOLÁS CAMPOS MD Jul 05, 2018 12:21
--- NOTE | 2018-07-05 13:01 | NUR ---
SS following up with discharge planning. Staff has had issues communicating with pt due to encephalopathy and difficulties interpreting pt's dialect. Per pt's RN, a member of pt's [employer]odoxy came to visit pt and was able to interpret. He reported that members from pt's orth[employer] will be coming in intermittently to visit with pt. Pt is currently NPO. He reported that if able to eat pt can only eat meats butchered by a gastroenterology nurse.
--- NOTE | 2018-07-05 13:20 | RAD ---
Examination: CT angiography head HISTORY: History of chronic left arm twitching, complex partial seizures History: Chronic left arm tingling ,Complex partial seizures COMPARISON: None available Technique: Axial CT angiographic images of the head was performed with IV contrast. Coronal and Sagittal 3-D MIP reformats are performed. Stenosis calculations for CT, MR, and conventional angiography are based upon measurements of the distal ICA diameter in accordance with the NASCET methodology. Stenosis calculations for carotid ultrasound studies are derived from validated velocity criteria which are known to correlate with the NASCET methodology. Exposure: One or more of the following individualized dose reduction techniques were utilized for this examination: 1. Automated exposure control 2. Adjustment of the mA and/or kV according to patient size 3. Use of iterative reconstruction technique FINDINGS: The visualized petrous, cavernous internal carotid arteries are patent. Mild atherosclerotic calcifications identified in the cavernous internal carotid arteries. The visualized middle cerebral arteries, anterior cerebral arteries are patent. The anterior communicating artery is patent. origin of the left posterior cerebral artery is identified. The bilateral vertebral arteries, basilar arteries are patent. The right posterior cerebral arteries. IMPRESSION: 1. No evidence of aneurysm or occlusion identified. Electronically signed by: Hussain Maldonado MD (07/05/2018 1:17 PM) [id number]
[2018-07-05] MEDS: ACYCLOVIR SODIUM IV SCH ×2 (14:26→22:10)
[2018-07-05] MEDS: DEXTROSE 5% IV SCH ×2 (14:26→22:10)
--- NOTE | 2018-07-05 15:53 | NUR ---
Pt has female friend, Chelsie, listed on his board as contact. [phone] During the day, pt has been visited by two other friends, Judie Daxhilario [phone], and Yareli Lyosn . Pt indicated that Judie Avalos is someone who would be approved to know his medical information, and could be given the pt code to keep in touch. Mr. Guevara also offered to function as a mgmt consultant for pt once he is awake, and will provide food once he is able to eat. It is noted that pt is [employer], and any meat must be provided by a alarm installation technician, it cannot be mechanically or processed in a processing plant. Dietary to be notified.
--- NOTE | 2018-07-05 16:21 | NUR ---
Pt transferred to room 528, ANGEL Carbajal accepted pt, who was alert, VS stable, IV running.
--- NOTE | 2018-07-05 16:31 | NUR ---
Contact made w/pt's friends, Chelsie and Judie Guevara and Yareli Lyons , to notify them that he has moved to room 528.
[2018-07-05 20:11] LABS: HERPES SIMPLEX TYPE 1 Negative (Negative); HERPES SIMPLEX TYPE 2 Negative (Negative)
[2018-07-06] MEDS: NITROGLYCERIN OINT 1 GM PACKET. TP SCH ×5 (00:19→23:57)
[2018-07-06 03:00] VITALS: BP 159/83
[2018-07-06 04:56] LABS: BASO # 0.1 x10^3/uL (0.0-0.2); BASO % 1 % (0-3); EOS % 11 % (0-3); HEMATOCRIT 40.6 % (39.0-53.0); LYMPH # 1.7 x10^3/uL (1.0-4.8); LYMPH % 19 % (24-48); MEAN CORPUSCULAR HEMOGLOBIN 24 pg (25-35); MEAN CORPUSCULAR HGB CONC 32 g/dL (31-37); MEAN CORPUSCULAR VOLUME 76 fL (79-100); MONO % 11 % (0-9); NEUT # 5.3 x10^3uL (1.8-7.7); NEUT % 59 % (31-73); PLATELET COUNT 183 x10^3/uL (140-400); RED BLOOD COUNT 5.38 x10^6/uL (4.30-5.70); RED CELL DISTRIBUTION WIDTH 14.8 % (11.5-14.5)
[2018-07-06] MEDS: ACYCLOVIR SODIUM IV SCH (05:19)
[2018-07-06] MEDS: DEXTROSE 5% IV SCH (05:19)
[2018-07-06] MEDS: AMINO AC 3%/ELECTROLYTE/GLYCER 1,000 ML IV SCH ×2 (05:19→17:35)
[2018-07-06] MEDS: VALPROIC ACID (AS SODIUM SALT) 500 MG in IV DEXTROSE 5% 50 ML IV SCH ×3 (05:20→22:21)
[2018-07-06] MEDS: CEFEPIME HCL IV Push 1 GM VIAL. IVP SCH ×3 (05:20→22:21)
[2018-07-06 05:46] LABS: ALBUMIN 2.5 g/dL (3.4-5.0); ALBUMIN/GLOBULIN RATIO 0.5 (1.0-1.7); CALCIUM 8.9 mg/dL (8.5-10.1); CREATININE 0.8 mg/dL (0.7-1.3); GFR 97.6; POTASSIUM 4.3 mmol/L (3.5-5.1); TOTAL BILIRUBIN 0.8 mg/dL (0.2-1.0); TOTAL PROTEIN 7.4 g/dL (6.4-8.2)
[2018-07-06 07:00] VITALS: BP 121/52
--- NOTE | 2018-07-06 08:21 | RAD ---
CHEST AP ONLY History: Encephalopathy Comparison: July 02, 2018 Findings: Single view of the chest is submitted. There is some mild linear opacity of the right lung base probable mild atelectasis, no new lobar consolidation. There is no pleural fluid or pneumothorax. Heart size is stable. Impression: 1. There is mild right base atelectasis. Electronically signed by: Gordon Rizvi MD (07/06/2018 8:18 AM) [facility]
[2018-07-06] MEDS: ASPIRIN CHEWABLE 81 MG TABLET. PO SCH (09:00)
[2018-07-06] MEDS: LACTOBACILLUS RHAMNOSUS GG 1 CAPSULE. PO SCH ×2 (09:00→20:11)
[2018-07-06] MEDS: ENOXAPARIN 40 MG/0.4 ML SYRINGE. SQ SCH (09:21)
[2018-07-06] MEDS: levETIRAcetam 500 MG in IV DEXTROSE 5% 100ML 100 ML IV SCH ×2 (09:22→19:52)
--- NOTE | 2018-07-06 09:30 | NUR ---
PATIENT REMAINS NPO AT THIS TIME, DROWSY BUT AROUSES TO SOUND AND MAKES OCCASIONAL EYE CONTACT, WILL HOLD AM PO. MEDS. UNTIL PATIENT SEEN BY SPEECH THERAPIST.
--- NOTE | 2018-07-06 09:41 | PDOC ---
PROGRESS NOTES Chief Complaint Chief Complaint 1. Encephalopathy, likely metabolic though pt is not able to give any history, no family at bedside. Unable to obtain MRI as the patient has metallic fragments in the floor of the left maxillary sinus. 2. Status epilepticus. on kera 3. 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 4. Hypertensive encephalopathy. 5. Disorientation,Confusion. 6. TPPA positive,syphilis unknown status, RPR still pending, HIV negative, Acute hepatitis panel neg 7. History of incarceration more than 20 years ago. 8. Diabetes. 9. Peripheral vascular disease. 10. Smoking. 11. Left nephrectomy. 12. Peripheral arterial disease. 13. Gastroesophageal reflux disease. 14. Aspiration Pneumonitis 15. Tremors ? etiology could be from noninfectious etiology History of Present Illness History of Present Illness Hard to understand Component of encephalopathy and different dialect Still nothing by mouth On IV acyclovir and some PPN Plan Add PTOT COUNCILOR Continue PPN and IVF acyclovir Other supportive meds cont seizure precaution fall risk aspiration risk FULL CODE per chart Vitals Vitals Vital Signs Date Time Temp Pulse Resp B/P (MAP) Pulse Ox O2 Delivery O2 Flow Rate FiO2 07/06/18 07:00 98.2 77 14 121/52 (75) 100 Room Air 98.2 Physical Exam Physical Exam GENERAL: The patient is lying in bed, MILD acute distress, continues to have involuntary movement of the left side, cooperative, not combative. Unable to verbalize, mumbling in romansh HEENT: Normocephalic and atraumatic. Anicteric. No thrush. Oral mucosa dry. No sinus tenderness.poor dentition NECK: Supple. No JVD. No lymphadenopathy. LUNGS: dec breath sounds gary both lungs HEART: S1 and S2. No murmurs. ABDOMEN: Soft, nontender and nondistended. EXTREMITIES: No edema and no cyanosis. DERMATOLOGICAL: Warm and dry. No generalized rash. CENTRAL NERVOUS SYSTEM: Facial twitching ,tremors in bilateral upper extremity. Left greater than right. Moves all 4 extremities. awake, answers a few questions, , UNABLE TO INTERPRET General: Cooperative, mild distress, Other (disoriented, unable to communicate needs) Heart: Regular rate (SR), Normal S1, Normal S2, No murmurs, Other (2/6 systolic murmur to LLS border) Lungs: Clear Abdomen: Normal bowel sounds, Soft, No hepatosplenomegaly Extremities: No clubbing, No cyanosis, No edema, Other (INVOLUNTARY LEFT ARM MOVEMENTS) Skin: No breakdown Labs LABS Laboratory Tests Test 07/05/18 13:50 07/06/18 04:25 Ammonia 23 mcmol/L (11-34) White Blood Count 9.0 x10^3/uL (4.0-11.0) Red Blood Count 5.38 x10^6/uL (4.30-5.70) Hemoglobin 13.0 g/dL (13.0-17.5) Hematocrit 40.6 % (39.0-53.0) Mean Corpuscular Volume 76 fL (79-100) Mean Corpuscular Hemoglobin 24 pg (25-35) Mean Corpuscular Hemoglobin Concent 32 g/dL (31-37) Red Cell Distribution Width 14.8 % (11.5-14.5) Platelet Count 183 x10^3/uL (140-400) Neutrophils (%) (Auto) 59 % (31-73) Lymphocytes (%) (Auto) 19 % (24-48) Monocytes (%) (Auto) 11 % (0-9) Eosinophils (%) (Auto) 11 % (0-3) Basophils (%) (Auto) 1 % (0-3) Neutrophils # (Auto) 5.3 x10^3uL (1.8-7.7) Lymphocytes # (Auto) 1.7 x10^3/uL (1.0-4.8) Monocytes # (Auto) 1.0 x10^3/uL (0.0-1.1) Eosinophils # (Auto) 1.0 x10^3/uL (0.0-0.7) Basophils # (Auto) 0.1 x10^3/uL (0.0-0.2) Sodium Level 138 mmol/L (136-145) Potassium Level 4.3 mmol/L (3.5-5.1) Chloride Level 103 mmol/L (98-107) Carbon Dioxide Level 25 mmol/L (21-32) Anion Gap 10 (6-14) Blood Urea Nitrogen 19 mg/dL (8-26) Creatinine 0.8 mg/dL (0.7-1.3) Estimated GFR (Cockcroft-Gault) 97.6 BUN/Creatinine Ratio 24 (6-20) Glucose Level 97 mg/dL (70-99) Calcium Level 8.9 mg/dL (8.5-10.1) Total Bilirubin 0.8 mg/dL (0.2-1.0) Aspartate Amino Transf (AST/SGOT) 30 U/L (15-37) Alanine Aminotransferase (ALT/SGPT) 24 U/L (16-63) Alkaline Phosphatase 78 U/L (46-116) Total Protein 7.4 g/dL (6.4-8.2) Albumin 2.5 g/dL (3.4-5.0) Albumin/Globulin Ratio 0.5 (1.0-1.7) Review of Systems Review of Systems limted ROS, different dialect, some encephalopathy Assessment and Plan Assessmemt and Plan Problems Medical Problems: (1) Elevated troponin Status: Acute (2) Tremor Status: Acute Comment Review of Relevant I have reviewed the following items kendrick (where applicable) has been applied. Labs Laboratory Tests Test 07/05/18 04:30 07/05/18 13:50 07/06/18 04:25 Creatinine 1.0 mg/dL (0.7-1.3) 0.8 mg/dL (0.7-1.3) Estimated GFR (Cockcroft-Gault) 75.5 97.6 Ammonia 23 mcmol/L (11-34) White Blood Count 9.0 x10^3/uL (4.0-11.0) Red Blood Count 5.38 x10^6/uL (4.30-5.70) Hemoglobin 13.0 g/dL (13.0-17.5) Hematocrit 40.6 % (39.0-53.0) Mean Corpuscular Volume 76 fL (79-100) Mean Corpuscular Hemoglobin 24 pg (25-35) Mean Corpuscular Hemoglobin Concent 32 g/dL (31-37) Red Cell Distribution Width 14.8 % (11.5-14.5) Platelet Count 183 x10^3/uL (140-400) Neutrophils (%) (Auto) 59 % (31-73) Lymphocytes (%) (Auto) 19 % (24-48) Monocytes (%) (Auto) 11 % (0-9) Eosinophils (%) (Auto) 11 % (0-3) Basophils (%) (Auto) 1 % (0-3) Neutrophils # (Auto) 5.3 x10^3uL (1.8-7.7) Lymphocytes # (Auto) 1.7 x10^3/uL (1.0-4.8) Monocytes # (Auto) 1.0 x10^3/uL (0.0-1.1) Eosinophils # (Auto) 1.0 x10^3/uL (0.0-0.7) Basophils # (Auto) 0.1 x10^3/uL (0.0-0.2) Sodium Level 138 mmol/L (136-145) Potassium Level 4.3 mmol/L (3.5-5.1) Chloride Level 103 mmol/L (98-107) Carbon Dioxide Level 25 mmol/L (21-32) Anion Gap 10 (6-14) Blood Urea Nitrogen 19 mg/dL (8-26) BUN/Creatinine Ratio 24 (6-20) Glucose Level 97 mg/dL (70-99) Calcium Level 8.9 mg/dL (8.5-10.1) Total Bilirubin 0.8 mg/dL (0.2-1.0) Aspartate Amino Transf (AST/SGOT) 30 U/L (15-37) Alanine Aminotransferase (ALT/SGPT) 24 U/L (16-63) Alkaline Phosphatase 78 U/L (46-116) Total Protein 7.4 g/dL (6.4-8.2) Albumin 2.5 g/dL (3.4-5.0) Albumin/Globulin Ratio 0.5 (1.0-1.7) Laboratory Tests Test 07/05/18 13:50 07/06/18 04:25 Ammonia 23 mcmol/L (11-34) White Blood Count 9.0 x10^3/uL (4.0-11.0) Red Blood Count 5.38 x10^6/uL (4.30-5.70) Hemoglobin 13.0 g/dL (13.0-17.5) Hematocrit 40.6 % (39.0-53.0) Mean Corpuscular Volume 76 fL (79-100) Mean Corpuscular Hemoglobin 24 pg (25-35) Mean Corpuscular Hemoglobin Concent 32 g/dL (31-37) Red Cell Distribution Width 14.8 % (11.5-14.5) Platelet Count 183 x10^3/uL (140-400) Neutrophils (%) (Auto) 59 % (31-73) Lymphocytes (%) (Auto) 19 % (24-48) Monocytes (%) (Auto) 11 % (0-9) Eosinophils (%) (Auto) 11 % (0-3) Basophils (%) (Auto) 1 % (0-3) Neutrophils # (Auto) 5.3 x10^3uL (1.8-7.7) Lymphocytes # (Auto) 1.7 x10^3/uL (1.0-4.8) Monocytes # (Auto) 1.0 x10^3/uL (0.0-1.1) Eosinophils # (Auto) 1.0 x10^3/uL (0.0-0.7) Basophils # (Auto) 0.1 x10^3/uL (0.0-0.2) Sodium Level 138 mmol/L (136-145) Potassium Level 4.3 mmol/L (3.5-5.1) Chloride Level 103 mmol/L (98-107) Carbon Dioxide Level 25 mmol/L (21-32) Anion Gap 10 (6-14) Blood Urea Nitrogen 19 mg/dL (8-26) Creatinine 0.8 mg/dL (0.7-1.3) Estimated GFR (Cockcroft-Gault) 97.6 BUN/Creatinine Ratio 24 (6-20) Glucose Level 97 mg/dL (70-99) Calcium Level 8.9 mg/dL (8.5-10.1) Total Bilirubin 0.8 mg/dL (0.2-1.0) Aspartate Amino Transf (AST/SGOT) 30 U/L (15-37) Alanine Aminotransferase (ALT/SGPT) 24 U/L (16-63) Alkaline Phosphatase 78 U/L (46-116) Total Protein 7.4 g/dL (6.4-8.2) Albumin 2.5 g/dL (3.4-5.0) Albumin/Globulin Ratio 0.5 (1.0-1.7) Microbiology 07/02/18 Blood Culture - Preliminary, Resulted NO GROWTH AFTER 3 DAYS 07/05/18 CSF Gram Stain - Final, Complete Medications Current Medications Sodium Chloride 1,000 ml @ 1,000 mls/hr 1X ONCE IV Last administered on at 10:00; Start 07/02/18 at 10:00; Stop 07/02/18 at 10:59; Status DC Lorazepam (Ativan) 0.5 mg 1X ONCE IV Last administered on 07/02/18at 12:12; Start 07/02/18 at 12:30; Stop 07/02/18 at 12:31; Status DC Aspirin (Children'S Aspirin) 324 mg 1X ONCE PO Last administered on 07/02/18at 13:18; Start 07/02/18 at 13:30; Stop 07/02/18 at 13:31; Status DC Acetaminophen (Tylenol) 650 mg PRN Q4HRS PRN PO FEVER; Start 07/02/18 at 14:30 ; Stop 07/02/18 at 18:38; Status DC Lorazepam (Ativan) 2 mg PRN Q4HRS PRN IV ANXIETY/AGITATION/ETOH WITHDRL Last administered on 07/05/18at 11:22; Start 07/02/18 at 15:30 Levetiracetam 750 mg/Dextrose 107.5 ml @ 420 mls/hr Q12HR IV Last administered on 07/03/18at 09:35; Start 07/02/18 at 16:30; Stop 07/03/18 at 14:17 ; Status DC Sodium Chloride (Normal Saline Flush 3ml) 3 ml QSHIFT PRN IV AFTER MEDS AND BLOOD DRAWS; Start 07/02/18 at 15:45 Sodium Chloride 1,000 ml @ 100 mls/hr Q10H IV Last administered on 07/02/18at 16:04; Start 07/02/18 at 16:30; Stop 07/04/18 at 16:37; Status DC Ondansetron HCl (Zofran) 4 mg PRN Q4HRS PRN IV NAUSEA/VOMITING; Start 07/02/18 at 15:45 Zolpidem Tartrate (Ambien) 5 mg PRN QHS PRN PO INSOMNIA; Start 07/02/18 at 15: 45 Acetaminophen (Tylenol) 650 mg PRN Q4HRS PRN PO TEMP OVER 100.4F OR MILD PAIN; Start 07/02/18 at 15:45 Al Hydroxide/Mg Hydroxide (Mylanta Plus Xs) 30 ml PRN DAILY PRN PO HEARTBURN / GAS; Start 07/02/18 at 15:45 Clonidine HCl (Catapres) 0.1 mg PRN Q6HRS PRN PO SBP>160 OR DBP>90; Start 07/02 at 15:45 Sodium Monofluorophosphate (Fleet Adult) 133 ml PRN DAILY PRN MD CONSTIPATION; Start 07/02/18 at 15:45 Diphenhydramine HCl (Benadryl) 25 mg PRN Q4HRS PRN IVP ITCHING; Start 07/02/18 at 15:45 Docusate Sodium (Colace) 100 mg PRN BID PRN PO CONSTIPATION; Start 07/02/18 at 15:45 Albuterol Sulfate (Ventolin Neb Soln) 2.5 mg PRN Q4HRS PRN NEB SHORTNESS OF BREATH; Start 07/02/18 at 15:45 Guaifenesin (Robitussin) 200 mg PRN Q4HRS PRN PO COUGH; Start 07/02/18 at 15:45 Lorazepam (Ativan) 0.5 mg PRN Q4HRS PRN PO ANXIETY / AGITATION; Start 07/02/18 at 15:45 Enoxaparin Sodium (Lovenox 40mg Syringe) 40 mg DAILY SQ Last administered on at 09:21; Start 07/03/18 at 09:00 Hydralazine HCl (Apresoline Inj) 10 mg PRN Q4HRS PRN IVP ELEVATED BP, SEE COMMENTS Last administered on 07/04/18at 14:20; Start 07/02/18 at 16:45 Nitroglycerin (Nitro-Bid Oint) 0.5 inch Q6HRS TP Last administered on at 05:23; Start 07/02/18 at 17:30 Aspirin (Children'S Aspirin) 81 mg DAILY PO ; Start 07/03/18 at 09:00 Lorazepam (Ativan) 2 mg PRN Q4HRS PRN IV ALCOHOL WITHDRAWAL; Start 07/02/18 at 18:30; Status Cancel Cefepime HCl (Maxipime) 2 gm Q8HRS IVP Last administered on 07/04/18at 14:00; Start 07/03/18 at 14:30; Stop 07/04/18 at 18:56; Status DC Acyclovir Sodium 730 mg/Dextrose 264.6 ml @ 264.6 mls/ hr Q8HRS IV Last administered on 07/04/18at 05:07; Start 07/03/18 at 15:00; Stop 07/04/18 at 12:26 ; Status DC Vancomycin HCl (Vanco Per Pharmacy) 1 each PRN DAILY PRN MC SEE COMMENTS Last administered on 07/04/18at 12:31; Start 07/03/18 at 14:15; Stop 07/04/18 at 18:56 ; Status DC Ampicillin Sodium 2 gm/Sodium Chloride 100 ml @ 200 mls/hr Q4HRS IV Last administered on 07/04/18at 16:24; Start 07/03/18 at 16:00; Stop 07/04/18 at 18:56 ; Status DC Vancomycin HCl 1.5 gm/Sodium Chloride 500 ml @ 250 mls/hr 1X ONCE IV Last administered on 07/03/18at 17:54; Start 07/03/18 at 15:00; Stop 07/03/18 at 16:59 ; Status DC Levetiracetam 500 mg/Dextrose 105 ml @ 420 mls/hr Q12HR IV Last administered on 07/06/18at 09:22; Start 07/03/18 at 21:00 Divalproex Sodium (Depakote) 500 mg BID PO ; Start 07/03/18 at 21:00; Stop 07/04 at 16:20; Status DC Vancomycin HCl 1 gm/Sodium Chloride 250 ml @ 250 mls/hr Q12H IV Last administered on 07/04/18at 18:45; Start 07/04/18 at 06:00; Stop 07/04/18 at 18:58 ; Status DC Vancomycin HCl (Vancomycin Trough Level) 1 each 1X ONCE MC ; Start 07/05/18 at 05:30; Stop 07/05/18 at 05:31; Status Cancel Amino Acids/ Glycerin/ Electrolytes 1,000 ml @ 80 mls/hr [id number] IV Last administered on 07/06/18at 05:19; Start 07/03/18 at 19:15 Acyclovir Sodium 620 mg/Dextrose 262.4 ml @ 262.4 mls/ hr Q8HRS IV Last administered on 07/05/18at 05:05; Start 07/04/18 at 14:00; Stop 07/05/18 at 13:59 ; Status DC Lactobacillus Rhamnosus (Culturelle) 1 cap BID PO ; Start 07/04/18 at 21:00 Valproic Acid 500 mg/Dextrose 55 ml @ 55 mls/hr Q8HRS IV Last administered on at 05:20; Start 07/04/18 at 17:00 Acyclovir Sodium 620 mg/Dextrose 112.4 ml @ 112.4 mls/ hr Q8HRS IV Last administered on 07/06/18at 05:19; Start 07/05/18 at 14:00 Cefepime HCl (Maxipime) 1 gm Q8HRS IVP Last administered on 07/06/18at 05:20; Start 07/04/18 at 22:00 Iohexol (Omnipaque 350 Mg/ml) 75 ml 1X ONCE IV Last administered on 07/05/18at 11:45; Start 07/05/18 at 11:15; Stop 07/05/18 at 11:16; Status DC Info (CONTRAST GIVEN -- Rx MONITORING) 1 each PRN DAILY PRN MC SEE COMMENTS; Start 07/05/18 at 11:30; Stop 07/07/18 at 11:29 Active Scripts Active Reported Zithromax (Azithromycin) 500 Mg Tablet 1 Tab PO DAILY Aspirin 81 Mg Tab.chew 81 Mg PO DAILY Hydrocodone-Apap 5-325 (Hydrocodone Bit/Acetaminophen) 1 Tab Tablet 1 Tab PO PRN Q6HRS PRN Vitals/I & O Vital Sign - Last 24 Hours 07/05/18 07/05/18 07/05/18 07/05/18 11:39 12:01 14:55 16:19 Temp 98.3 98.8 97.5 98.3 98.8 97.5 Pulse 102 102 88 99 Resp 16 19 14 B/P (MAP) 136/73 (94) 136/73 103/56 (72) 103/44 (63) Pulse Ox 97 97 O2 Delivery Room Air Room Air Room Air 07/05/18 07/05/18 07/05/18 07/05/18 16:21 17:36 19:00 19:15 Temp 98.5 98.5 Pulse 91 88 Resp 19 B/P (MAP) 112/77 137/67 (90) Pulse Ox 97 O2 Delivery Room Air Room Air Room Air 07/05/18 07/06/18 07/06/18 07/06/18 22:52 00:19 03:00 05:23 Temp 100.6 98.4 100.6 98.4 Pulse 95 79 81 80 Resp 18 17 B/P (MAP) 146/72 (96) 129/65 159/83 (108) 122/75 Pulse Ox 99 97 O2 Delivery Room Air Room Air 07/06/18 07:00 Temp 98.2 98.2 Pulse 77 Resp 14 B/P (MAP) 121/52 (75) Pulse Ox 100 O2 Delivery Room Air Intake and Output 07/05/18 07/05/18 07/06/18 15:00 23:00 07:00 Intake Total 105 ml 167.4 ml Output Total 200 ml Balance 105 ml -32.6 ml Nutrition Consultation Dietary Evaluation: Recommendations by RD: PPN/TPN Comments: Continue PPN for short-term nutrition needs If extented NPO (>7 days), recommend consideration of dobhoff placement for TF to better meet nutrition needs Expected Outcomes/Goals: Diet advancement Interpretation of weight loss: >7.5% in 3 months Malnutrition Findings: Weight Status: Appropriate JOHN CHAVEZ MD Jul 06, 2018 09:41
[2018-07-06 10:21] LABS: HERPES SIMPLEX TYPE 1 Negative (Negative); HERPES SIMPLEX TYPE 2 Negative (Negative)
[2018-07-06 11:00] VITALS: BP 157/78
--- NOTE | 2018-07-06 12:41 | PDOC ---
Infectious Disease Note Subjective Subjective noncommunicative, mumbles Fever 100.6 ROS ROS unobtainable Vital Sign Vital Signs Vital Signs Date Time Temp Pulse Resp B/P (MAP) Pulse Ox O2 Delivery O2 Flow Rate FiO2 07/06/18 11:00 98.4 88 18 157/78 (104) 95 Room Air 98.4 Physical Exam PHYSICAL EXAM GENERAL: Propped up in bed, alert, NAD HEENT: Pupils equally round, Oral mucosa dry, film/overgrowth bacteria on tongue; poor dention . NECK: Supple. No JVD. No lymphadenopathy. LUNGS: Clear HEART: S1 and S2. ABDOMEN: Soft, no grimace or guarding to palpation, BS present EXTREMITIES: No edema and no cyanosis. SKIN: Warm and dry. No generalized rash. [employer]DED [employer] MACHINE: LUE tremor, no follow commands, ? understanding of [place] PIV Labs Lab Laboratory Tests Test 07/05/18 13:50 07/06/18 04:25 Ammonia 23 mcmol/L (11-34) White Blood Count 9.0 x10^3/uL (4.0-11.0) Red Blood Count 5.38 x10^6/uL (4.30-5.70) Hemoglobin 13.0 g/dL (13.0-17.5) Hematocrit 40.6 % (39.0-53.0) Mean Corpuscular Volume 76 fL (79-100) Mean Corpuscular Hemoglobin 24 pg (25-35) Mean Corpuscular Hemoglobin Concent 32 g/dL (31-37) Red Cell Distribution Width 14.8 % (11.5-14.5) Platelet Count 183 x10^3/uL (140-400) Neutrophils (%) (Auto) 59 % (31-73) Lymphocytes (%) (Auto) 19 % (24-48) Monocytes (%) (Auto) 11 % (0-9) Eosinophils (%) (Auto) 11 % (0-3) Basophils (%) (Auto) 1 % (0-3) Neutrophils # (Auto) 5.3 x10^3uL (1.8-7.7) Lymphocytes # (Auto) 1.7 x10^3/uL (1.0-4.8) Monocytes # (Auto) 1.0 x10^3/uL (0.0-1.1) Eosinophils # (Auto) 1.0 x10^3/uL (0.0-0.7) Basophils # (Auto) 0.1 x10^3/uL (0.0-0.2) Sodium Level 138 mmol/L (136-145) Potassium Level 4.3 mmol/L (3.5-5.1) Chloride Level 103 mmol/L (98-107) Carbon Dioxide Level 25 mmol/L (21-32) Anion Gap 10 (6-14) Blood Urea Nitrogen 19 mg/dL (8-26) Creatinine 0.8 mg/dL (0.7-1.3) Estimated GFR (Cockcroft-Gault) 97.6 BUN/Creatinine Ratio 24 (6-20) Glucose Level 97 mg/dL (70-99) Calcium Level 8.9 mg/dL (8.5-10.1) Total Bilirubin 0.8 mg/dL (0.2-1.0) Aspartate Amino Transf (AST/SGOT) 30 U/L (15-37) Alanine Aminotransferase (ALT/SGPT) 24 U/L (16-63) Alkaline Phosphatase 78 U/L (46-116) Total Protein 7.4 g/dL (6.4-8.2) Albumin 2.5 g/dL (3.4-5.0) Albumin/Globulin Ratio 0.5 (1.0-1.7) Micro Microbiology 07/02/18 Blood Culture - Preliminary, Resulted NO GROWTH AFTER 3 DAYS 07/05/18 CSF Gram Stain - Final, Complete GRAM STAIN,CSF Final WBCS NONE SEEN RBCS NONE SEEN ORGANISMS NONE SEEN Objective Assessment Encephalopathy, likely metabolic though pt is not able to give any history, no family at bedside. - Unable to obtain MRI as the patient has metallic fragments in the floor of the left maxillary sinus. -s/p LP: CSF WBC 0, glucose 61, T protein 61.1. VDRL pending -HSV PCR negative; HIV nonreactive Status epilepticus. on Keppra Hypertensive encephalopathy. TPPA positive, syphilis unknown status, RPR still pending, HIV negative, Acute hepatitis panel neg History of incarceration more than 20 years ago. Diabetes. Peripheral vascular disease. Left nephrectomy. Aspiration Pneumonitis Smoking Plan Plan of Care Cefepime since 07/04 D/c Acyclovir since 07/04 f/u CSF studies including VDRL f/u RPR and other infectious disease serologies Pt unable to give details about Syphilis treatment, will need to complete treatment for possible neurosyphilis Maintain aspiration precaution. Neurology following Attending Co-Sign Attending Co-Sign The patient was seen and interviewed as well as examined at the bedside. The chart was reviewed. The case was discussed. Agree with the plan of care. ALISA BOSCH APRN Jul 06, 2018 12:41 CHET AVENDANO MD Jul 06, 2018 13:51
--- NOTE | 2018-07-06 12:52 | NUR ---
Bedside Swallow Evaluation completed. Please refer to full report for additional details. Impressions: Severe oropharyngeal dysphagia w/ pt demonstrating s/s aspiration w/ own secretions during positioning. Pt w/ agnosia to bolus presentation and let ice chip presentation spill from mouth w/o attempt to manipulate or swallow ice chip. Pt is at high risk of aspiration for all PO and length of time required for NPO is currently unknown. Recommendations: NPO. Oral care. ST f/u for dysphagia and assessment for readiness/safety of PO. D/w RN
[2018-07-06 15:00] VITALS: BP 113/90
--- NOTE | 2018-07-06 15:52 | PDOC ---
PROGRESS NOTES Assessment Assessment Status epilepticus, controlled on 07/02/18. Complex focal seizure went status epilepticus on 07/02/16. Metabolic encephalopathy. Hypertensive encephalopathy. Hypertensive emergency, BP 214/112 mmHg. Disorientation. Confusion. Abnormal chorea like movements in left UE. HTN, poorly controlled. DM. PVD. Smoking. Treponema Pallidum Ab positive. RECOMMENDATIONS/PLAN: Decreased Keppra to 500 mg IV q12h. Continue Depakote 500 mg q8h IV. Plan to discontinue Keppra. Brain MRI was unable to perform on him due to metallic projects at the floor of the left maxillary sinus. Treat medical diseases. Consulted ID. BP control. EEG on 07/03/18: Asymmetric cerebral activity. Diffuse slowing in the right side hemispheric area. HISTORY OF THE PRESENT ILLNESS: This is a 63-y-old descent male patient admitted due to noted altered mental state changes with abnormal movements in left side. Per staff, girlfriend mentioned noting him to be disoriented and EMS was called. He speaks Mongolian. He was noted with abnormal movements while on floor he was noted with seizure episodes. No seizure history reported by his girlfriend. No noted complains of any CP SOB leading to this event. No known hx of CAD but noted previously with PAD. It does not appear that he takes medications. Status epilepticus controlled after Ativan and Keppra administrations on 06/04/18 , but he has abnormal chorea like movements in his left UE. He stated on 07/06/18 that he has been having seizures for many years. PAST MEDICAL HISTORY Cardiovascular: PAD; hx of asymptomatic SB. GI: GERD PAST SURGICAL HISTORY Left nephrectomy. FAMILY HISTORY Unknown SOCIAL HISTORY Smoke: <1 pack per day Lives: With friends ALLERGY: Unknown MEDICATIONS: Refer to MAR REVIEW OF SYSTEMS: Constitutional: No malnutrition, cachexia. Head: No traumatic brain or head injury. Skin: No edema, or rash. Ear: No infection. Eyes: No vision loss or color blindness. Nose: No bleeding or purulent discharges. Hearing: No hearing decrease. Neck: No injury. Cardiac: HTN. Pulmonary: Smoking. GI: No GI ulcer, GI bleeding. Urinary/genital: No dysuria, incontinence, urinary retention. Endocrinologic: Diabetes Mellitus. Skeletomuscular: No muscular atrophy. Neurological: see HP. Psychiatric: Denies drug use/abuse. Otherwise, not [id number] review of systems. PHYSICAL EXAMINATION: General appearance is in subacute distress. HEENT: Normocephalic and nontraumatic. Eyes, nose, ears, and throat are unremarkable. Neck is supple. No lymphadenopathy. No crepitus. Cardiovascular: S1, S2, regular rate and rhythm. Pulmonary: No rales heard. Abdomen: Bowel sounds are positive. Extremities: No rash, lesions, or edema. No restriction of range of motion NEUROLOGICAL EXAMINATION: Drowsiness. Able to follow a few commands and answer a few questions. Not oriented to time, place and person. PERRL. EOMI. CN: no acute focal findings. Muscle tone: within normal. Muscle strength: 4+ DTR: 3+. Plantar reflex: Neutral response bilaterally Gait: not examined in bed. Sensory exam: no acute abnormal findings. Not able to access cerebellar signs. F-T-N test not performed in unresponsive state. Left UE jerking like movements significantly improved than before but still noticeable. Objective Objective Vital Signs Date Time Temp Pulse Resp B/P (MAP) Pulse Ox O2 Delivery O2 Flow Rate FiO2 07/06/18 15:00 98.5 61 14 113/90 (98) 91 Room Air 98.5 Intake and Output 07/06/18 07:00 Intake Total 272.4 ml Output Total 200 ml Balance 72.4 ml IV Total 272.4 ml Output Urine Total 200 ml # Voids 7 Vitals Signs Vitals VS - Last 72 Hours, by Label Date Time Temp Pulse Resp B/P (MAP) Pulse Ox O2 Delivery O2 Flow Rate FiO2 07/06/18 15:00 98.5 61 14 113/90 (98) 91 Room Air 98.5 07/06/18 14:07 88 157/78 07/06/18 11:00 98.4 88 18 157/78 (104) 95 Room Air 98.4 07/06/18 07:00 98.2 77 14 121/52 (75) 100 Room Air 98.2 07/06/18 05:23 80 122/75 07/06/18 03:00 98.4 81 17 159/83 (108) 97 Room Air 98.4 07/06/18 00:19 79 129/65 07/05/18 22:52 100.6 95 18 146/72 (96) 99 Room Air 100.6 07/05/18 19:15 Room Air 07/05/18 19:00 98.5 88 19 137/67 (90) 97 Room Air 98.5 07/05/18 17:36 91 112/77 07/05/18 16:21 Room Air 07/05/18 16:19 97.5 99 14 103/44 (63) 97 Room Air 97.5 07/05/18 14:55 98.8 88 19 103/56 (72) 97 Room Air 98.8 07/05/18 12:01 102 136/73 07/05/18 11:39 98.3 102 16 136/73 (94) Room Air 98.3 07/05/18 08:00 Room Air 07/05/18 07:00 98.0 72 18 156/65 (95) 98 Room Air 98.0 Laboratory Laboratory Laboratory Tests Test 07/06/18 04:25 White Blood Count 9.0 x10^3/uL (4.0-11.0) Red Blood Count 5.38 x10^6/uL (4.30-5.70) Hemoglobin 13.0 g/dL (13.0-17.5) Hematocrit 40.6 % (39.0-53.0) Mean Corpuscular Volume 76 fL (79-100) Mean Corpuscular Hemoglobin 24 pg (25-35) Mean Corpuscular Hemoglobin Concent 32 g/dL (31-37) Red Cell Distribution Width 14.8 % (11.5-14.5) Platelet Count 183 x10^3/uL (140-400) Neutrophils (%) (Auto) 59 % (31-73) Lymphocytes (%) (Auto) 19 % (24-48) Monocytes (%) (Auto) 11 % (0-9) Eosinophils (%) (Auto) 11 % (0-3) Basophils (%) (Auto) 1 % (0-3) Neutrophils # (Auto) 5.3 x10^3uL (1.8-7.7) Lymphocytes # (Auto) 1.7 x10^3/uL (1.0-4.8) Monocytes # (Auto) 1.0 x10^3/uL (0.0-1.1) Eosinophils # (Auto) 1.0 x10^3/uL (0.0-0.7) Basophils # (Auto) 0.1 x10^3/uL (0.0-0.2) Sodium Level 138 mmol/L (136-145) Potassium Level 4.3 mmol/L (3.5-5.1) Chloride Level 103 mmol/L (98-107) Carbon Dioxide Level 25 mmol/L (21-32) Anion Gap 10 (6-14) Blood Urea Nitrogen 19 mg/dL (8-26) Creatinine 0.8 mg/dL (0.7-1.3) Estimated GFR (Cockcroft-Gault) 97.6 BUN/Creatinine Ratio 24 (6-20) Glucose Level 97 mg/dL (70-99) Calcium Level 8.9 mg/dL (8.5-10.1) Total Bilirubin 0.8 mg/dL (0.2-1.0) Aspartate Amino Transf (AST/SGOT) 30 U/L (15-37) Alanine Aminotransferase (ALT/SGPT) 24 U/L (16-63) Alkaline Phosphatase 78 U/L (46-116) Total Protein 7.4 g/dL (6.4-8.2) Albumin 2.5 g/dL (3.4-5.0) Albumin/Globulin Ratio 0.5 (1.0-1.7) Microbiology 07/02/18 Blood Culture - Preliminary, Resulted NO GROWTH AFTER 3 DAYS 07/05/18 CSF Gram Stain - Final, Complete Comment Review of Relevant I have reviewed the following items kendrick (where applicable) has been applied. NICOLÁS CAMPOS MD Jul 06, 2018 15:52
[2018-07-06 19:00] VITALS: BP 122/74
[2018-07-06 23:00] VITALS: BP 130/73
[2018-07-07 03:00] VITALS: BP 157/59
[2018-07-07] MEDS: VALPROIC ACID (AS SODIUM SALT) 500 MG in IV DEXTROSE 5% 50 ML IV SCH ×3 (05:45→21:24)
[2018-07-07] MEDS: CEFEPIME HCL IV Push 1 GM VIAL. IVP SCH ×3 (05:45→21:23)
[2018-07-07] MEDS: NITROGLYCERIN OINT 1 GM PACKET. TP SCH ×4 (05:46→23:32)
[2018-07-07 07:00] VITALS: BP 129/66
[2018-07-07] MEDS: ASPIRIN CHEWABLE 81 MG TABLET. PO SCH (08:09)
[2018-07-07] MEDS: LACTOBACILLUS RHAMNOSUS GG 1 CAPSULE. PO SCH ×2 (08:10→21:00)
[2018-07-07] MEDS: AMINO AC 3%/ELECTROLYTE/GLYCER 1,000 ML IV SCH ×2 (09:55→23:32)
[2018-07-07] MEDS: levETIRAcetam 500 MG in IV DEXTROSE 5% 100ML 100 ML IV SCH (09:55)
[2018-07-07] MEDS: ENOXAPARIN 40 MG/0.4 ML SYRINGE. SQ SCH (09:56)
--- NOTE | 2018-07-07 10:21 | PDOC ---
PROGRESS NOTES Chief Complaint Chief Complaint 1. Encephalopathy, likely metabolic though pt is not able to give any history, no family at bedside. Unable to obtain MRI as the patient has metallic fragments in the floor of the left maxillary sinus. 2. Status epilepticus. on keppra 3. 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 4. Hypertensive encephalopathy. 5. Disorientation,Confusion. 6. TPPA positive,syphilis unknown status, RPR still pending, HIV negative, Acute hepatitis panel neg 7. History of incarceration more than 20 years ago. 8. Diabetes. 9. Peripheral vascular disease. 10. Smoking. 11. Left nephrectomy. 12. Peripheral arterial disease. 13. Gastroesophageal reflux disease. 14. Aspiration Pneumonitis 15. Tremors ? etiology could be from noninfectious etiology History of Present Illness History of Present Illness NO change NEeded some ativan last night Hard to understand Component of encephalopathy and different dialect Still nothing by mouth On IV acyclovir and some PPN Plan Add [employer]AN Continue PPN and IV acyclovir Other supportive meds cont seizure precaution fall risk aspiration risk FULL CODE per chart Vitals Vitals Vital Signs Date Time Temp Pulse Resp B/P (MAP) Pulse Ox O2 Delivery O2 Flow Rate FiO2 07/07/18 07:00 97.6 63 20 129/66 (87) 97 Room Air 97.6 Physical Exam Physical Exam GENERAL: Propped up in bed, alert, NAD HEENT: Pupils equally round, Oral mucosa dry, film/overgrowth bacteria on tongue; poor dention . NECK: Supple. No JVD. No lymphadenopathy. LUNGS: Clear HEART: S1 and S2. ABDOMEN: Soft, no grimace or guarding to palpation, BS present EXTREMITIES: No edema and no cyanosis. SKIN: Warm and dry. No generalized rash. CHUTE BOSS: LUE tremor, no follow commands, ? understanding of Portuguese PIV General: Cooperative, mild distress, Other (disoriented, unable to communicate needs) Heart: Regular rate (SR), Normal S1, Normal S2, No murmurs, Other (2/6 systolic murmur to LLS border) Lungs: Clear Abdomen: Normal bowel sounds, Soft, No hepatosplenomegaly Extremities: No clubbing, No cyanosis, No edema, Other (INVOLUNTARY LEFT ARM MOVEMENTS) Skin: No breakdown Review of Systems Review of Systems unobtainable ROS Assessment and Plan Assessmemt and Plan Problems Medical Problems: (1) Elevated troponin Status: Acute (2) Tremor Status: Acute Comment Review of Relevant I have reviewed the following items kendrick (where applicable) has been applied. Labs Laboratory Tests Test 07/05/18 13:50 07/06/18 04:25 Ammonia 23 mcmol/L (11-34) White Blood Count 9.0 x10^3/uL (4.0-11.0) Red Blood Count 5.38 x10^6/uL (4.30-5.70) Hemoglobin 13.0 g/dL (13.0-17.5) Hematocrit 40.6 % (39.0-53.0) Mean Corpuscular Volume 76 fL (79-100) Mean Corpuscular Hemoglobin 24 pg (25-35) Mean Corpuscular Hemoglobin Concent 32 g/dL (31-37) Red Cell Distribution Width 14.8 % (11.5-14.5) Platelet Count 183 x10^3/uL (140-400) Neutrophils (%) (Auto) 59 % (31-73) Lymphocytes (%) (Auto) 19 % (24-48) Monocytes (%) (Auto) 11 % (0-9) Eosinophils (%) (Auto) 11 % (0-3) Basophils (%) (Auto) 1 % (0-3) Neutrophils # (Auto) 5.3 x10^3uL (1.8-7.7) Lymphocytes # (Auto) 1.7 x10^3/uL (1.0-4.8) Monocytes # (Auto) 1.0 x10^3/uL (0.0-1.1) Eosinophils # (Auto) 1.0 x10^3/uL (0.0-0.7) Basophils # (Auto) 0.1 x10^3/uL (0.0-0.2) Sodium Level 138 mmol/L (136-145) Potassium Level 4.3 mmol/L (3.5-5.1) Chloride Level 103 mmol/L (98-107) Carbon Dioxide Level 25 mmol/L (21-32) Anion Gap 10 (6-14) Blood Urea Nitrogen 19 mg/dL (8-26) Creatinine 0.8 mg/dL (0.7-1.3) Estimated GFR (Cockcroft-Gault) 97.6 BUN/Creatinine Ratio 24 (6-20) Glucose Level 97 mg/dL (70-99) Calcium Level 8.9 mg/dL (8.5-10.1) Total Bilirubin 0.8 mg/dL (0.2-1.0) Aspartate Amino Transf (AST/SGOT) 30 U/L (15-37) Alanine Aminotransferase (ALT/SGPT) 24 U/L (16-63) Alkaline Phosphatase 78 U/L (46-116) Total Protein 7.4 g/dL (6.4-8.2) Albumin 2.5 g/dL (3.4-5.0) Albumin/Globulin Ratio 0.5 (1.0-1.7) Microbiology 07/02/18 Blood Culture - Preliminary, Resulted NO GROWTH AFTER 4 DAYS 07/05/18 CSF Gram Stain - Final, Complete Medications Current Medications Sodium Chloride 1,000 ml @ 1,000 mls/hr 1X ONCE IV Last administered on at 10:00; Start 07/02/18 at 10:00; Stop 07/02/18 at 10:59; Status DC Lorazepam (Ativan) 0.5 mg 1X ONCE IV Last administered on 07/02/18at 12:12; Start 07/02/18 at 12:30; Stop 07/02/18 at 12:31; Status DC Aspirin (Children'S Aspirin) 324 mg 1X ONCE PO Last administered on 07/02/18at 13:18; Start 07/02/18 at 13:30; Stop 07/02/18 at 13:31; Status DC Acetaminophen (Tylenol) 650 mg PRN Q4HRS PRN PO FEVER; Start 07/02/18 at 14:30 ; Stop 07/02/18 at 18:38; Status DC Lorazepam (Ativan) 2 mg PRN Q4HRS PRN IV ANXIETY/AGITATION/ETOH WITHDRL Last administered on 07/07/18at 03:20; Start 07/02/18 at 15:30 Levetiracetam 750 mg/Dextrose 107.5 ml @ 420 mls/hr Q12HR IV Last administered on 07/03/18at 09:35; Start 07/02/18 at 16:30; Stop 07/03/18 at 14:17 ; Status DC Sodium Chloride (Normal Saline Flush 3ml) 3 ml QSHIFT PRN IV AFTER MEDS AND BLOOD DRAWS; Start 07/02/18 at 15:45 Sodium Chloride 1,000 ml @ 100 mls/hr Q10H IV Last administered on 07/02/18at 16:04; Start 07/02/18 at 16:30; Stop 07/04/18 at 16:37; Status DC Ondansetron HCl (Zofran) 4 mg PRN Q4HRS PRN IV NAUSEA/VOMITING; Start 07/02/18 at 15:45 Zolpidem Tartrate (Ambien) 5 mg PRN QHS PRN PO INSOMNIA; Start 07/02/18 at 15: 45 Acetaminophen (Tylenol) 650 mg PRN Q4HRS PRN PO TEMP OVER 100.4F OR MILD PAIN; Start 07/02/18 at 15:45 Al Hydroxide/Mg Hydroxide (Mylanta Plus Xs) 30 ml PRN DAILY PRN PO HEARTBURN / GAS; Start 07/02/18 at 15:45 Clonidine HCl (Catapres) 0.1 mg PRN Q6HRS PRN PO SBP>160 OR DBP>90; Start 07/02 at 15:45 Sodium Monofluorophosphate (Fleet Adult) 133 ml PRN DAILY PRN AR CONSTIPATION; Start 07/02/18 at 15:45 Diphenhydramine HCl (Benadryl) 25 mg PRN Q4HRS PRN IVP ITCHING; Start 07/02/18 at 15:45 Docusate Sodium (Colace) 100 mg PRN BID PRN PO CONSTIPATION; Start 07/02/18 at 15:45 Albuterol Sulfate (Ventolin Neb Soln) 2.5 mg PRN Q4HRS PRN NEB SHORTNESS OF BREATH; Start 07/02/18 at 15:45 Guaifenesin (Robitussin) 200 mg PRN Q4HRS PRN PO COUGH; Start 07/02/18 at 15:45 Lorazepam (Ativan) 0.5 mg PRN Q4HRS PRN PO ANXIETY / AGITATION; Start 07/02/18 at 15:45 Enoxaparin Sodium (Lovenox 40mg Syringe) 40 mg DAILY SQ Last administered on at 09:56; Start 07/03/18 at 09:00 Hydralazine HCl (Apresoline Inj) 10 mg PRN Q4HRS PRN IVP ELEVATED BP, SEE COMMENTS Last administered on 07/04/18at 14:20; Start 07/02/18 at 16:45 Nitroglycerin (Nitro-Bid Oint) 0.5 inch Q6HRS TP Last administered on at 05:46; Start 07/02/18 at 17:30 Aspirin (Children'S Aspirin) 81 mg DAILY PO ; Start 07/03/18 at 09:00 Lorazepam (Ativan) 2 mg PRN Q4HRS PRN IV ALCOHOL WITHDRAWAL; Start 07/02/18 at 18:30; Status Cancel Cefepime HCl (Maxipime) 2 gm Q8HRS IVP Last administered on 07/04/18at 14:00; Start 07/03/18 at 14:30; Stop 07/04/18 at 18:56; Status DC Acyclovir Sodium 730 mg/Dextrose 264.6 ml @ 264.6 mls/ hr Q8HRS IV Last administered on 07/04/18at 05:07; Start 07/03/18 at 15:00; Stop 07/04/18 at 12:26 ; Status DC Vancomycin HCl (Vanco Per Pharmacy) 1 each PRN DAILY PRN MC SEE COMMENTS Last administered on 07/04/18at 12:31; Start 07/03/18 at 14:15; Stop 07/04/18 at 18:56 ; Status DC Ampicillin Sodium 2 gm/Sodium Chloride 100 ml @ 200 mls/hr Q4HRS IV Last administered on 07/04/18at 16:24; Start 07/03/18 at 16:00; Stop 07/04/18 at 18:56 ; Status DC Vancomycin HCl 1.5 gm/Sodium Chloride 500 ml @ 250 mls/hr 1X ONCE IV Last administered on 07/03/18at 17:54; Start 07/03/18 at 15:00; Stop 07/03/18 at 16:59 ; Status DC Levetiracetam 500 mg/Dextrose 105 ml @ 420 mls/hr Q12HR IV Last administered on 07/07/18at 09:55; Start 07/03/18 at 21:00 Divalproex Sodium (Depakote) 500 mg BID PO ; Start 07/03/18 at 21:00; Stop 07/04 at 16:20; Status DC Vancomycin HCl 1 gm/Sodium Chloride 250 ml @ 250 mls/hr Q12H IV Last administered on 07/04/18at 18:45; Start 07/04/18 at 06:00; Stop 07/04/18 at 18:58 ; Status DC Vancomycin HCl (Vancomycin Trough Level) 1 each 1X ONCE MC ; Start 07/05/18 at 05:30; Stop 07/05/18 at 05:31; Status Cancel Amino Acids/ Glycerin/ Electrolytes 1,000 ml @ 80 mls/hr [id number] IV Last administered on 07/07/18at 09:55; Start 07/03/18 at 19:15 Acyclovir Sodium 620 mg/Dextrose 262.4 ml @ 262.4 mls/ hr Q8HRS IV Last administered on 07/05/18at 05:05; Start 07/04/18 at 14:00; Stop 07/05/18 at 13:59 ; Status DC Lactobacillus Rhamnosus (Culturelle) 1 cap BID PO ; Start 07/04/18 at 21:00 Valproic Acid 500 mg/Dextrose 55 ml @ 55 mls/hr Q8HRS IV Last administered on at 05:45; Start 07/04/18 at 17:00 Acyclovir Sodium 620 mg/Dextrose 112.4 ml @ 112.4 mls/ hr Q8HRS IV Last administered on 07/06/18at 05:19; Start 07/05/18 at 14:00; Stop 07/06/18 at 13:52 ; Status DC Cefepime HCl (Maxipime) 1 gm Q8HRS IVP Last administered on 07/07/18at 05:45; Start 07/04/18 at 22:00 Iohexol (Omnipaque 350 Mg/ml) 75 ml 1X ONCE IV Last administered on 07/05/18at 11:45; Start 07/05/18 at 11:15; Stop 07/05/18 at 11:16; Status DC Info (CONTRAST GIVEN -- Rx MONITORING) 1 each PRN DAILY PRN MC SEE COMMENTS; Start 07/05/18 at 11:30; Stop 07/07/18 at 11:29 Active Scripts Active Reported Zithromax (Azithromycin) 500 Mg Tablet 1 Tab PO DAILY Aspirin 81 Mg Tab.chew 81 Mg PO DAILY Hydrocodone-Apap 5-325 (Hydrocodone Bit/Acetaminophen) 1 Tab Tablet 1 Tab PO PRN Q6HRS PRN Vitals/I & O Vital Sign - Last 24 Hours 07/06/18 07/06/18 07/06/18 07/06/18 11:00 14:07 15:00 19:00 Temp 98.4 98.5 99.5 98.4 98.5 99.5 Pulse 88 88 61 93 Resp 18 14 17 B/P (MAP) 157/78 (104) 157/78 113/90 (98) 122/74 (90) Pulse Ox 95 91 97 O2 Delivery Room Air Room Air Room Air 07/06/18 07/06/18 07/06/18 07/06/18 19:57 20:00 23:00 23:57 Temp 99.1 99.1 Pulse 93 82 82 Resp 17 B/P (MAP) 122/74 130/73 (92) 130/73 Pulse Ox 98 O2 Delivery Room Air Room Air 07/07/18 07/07/18 07/07/18 03:00 05:46 07:00 Temp 98.3 97.6 98.3 97.6 Pulse 68 66 63 Resp 16 20 B/P (MAP) 157/59 (91) 124/68 129/66 (87) Pulse Ox 95 97 O2 Delivery Room Air Room Air Intake and Output 07/06/18 07/06/18 07/07/18 14:59 22:59 06:59 Output Total 0 ml Balance 0 ml Nutrition Consultation Dietary Evaluation: Recommendations by RD: PPN/TPN Comments: Continue PPN for short-term nutrition needs If extented NPO (>7 days), recommend consideration of dobhoff placement for TF to better meet nutrition needs Expected Outcomes/Goals: Diet advancement Interpretation of weight loss: >7.5% in 3 months Malnutrition Findings: Weight Status: Appropriate JOHN CHAVEZ MD Jul 07, 2018 10:21
[2018-07-07 11:00] VITALS: BP 138/54
--- NOTE | 2018-07-07 11:33 | PDOC ---
Infectious Disease Note Subjective Subjective Noncommunicative Dose Ativan last night per RN No fevers last 24 hours ROS ROS Unobtainable Vital Sign Vital Signs Vital Signs Date Time Temp Pulse Resp B/P (MAP) Pulse Ox O2 Delivery O2 Flow Rate FiO2 07/07/18 08:00 Room Air 07/07/18 07:00 97.6 63 20 129/66 (87) 97 97.6 Physical Exam PHYSICAL EXAM GENERAL: Propped up in bed, sleeping, NAD HEENT: Pupils equally round, Oral mucosa dry, build up secretions, poor dentition NECK: Supple. LUNGS: Clear HEART: S1 and S2. ABDOMEN: Soft, no grimace or guarding to palpation, BS present EXTREMITIES: No edema and no cyanosis. SKIN: Warm and dry. No generalized rash. WOUND CARE SPECIALIST: Difficult to arouse, ? understanding of Czech PIV Labs Micro 07/02/18 Blood Culture - Preliminary, Resulted NO GROWTH AFTER 34DAYS 07/05/18 CSF Gram Stain - Final, Complete GRAM STAIN,CSF Final WBCS NONE SEEN RBCS NONE SEEN ORGANISMS NONE SEEN AFB CULTURE GRAM STAIN Final Negative Objective Assessment Encephalopathy, likely metabolic though pt is not able to give any history, no family at bedside. - Unable to obtain MRI as the patient has metallic fragments in the floor of the left maxillary sinus. -s/p LP: CSF WBC 0, glucose 61, T protein 61.1. VDRL pending -HSV PCR negative; HIV nonreactive Status epilepticus. on Keppra Hypertensive encephalopathy. TPPA positive, syphilis unknown status, RPR still pending History of incarceration more than 20 years ago. Diabetes. Peripheral vascular disease. Left nephrectomy. Aspiration Pneumonitis Smoking Plan Plan of Care Cefepime since 07/04 Off Acyclovir f/u CSF VDRL f/u RPR and other infectious disease serologies Pt unable to give details about Syphilis treatment, will need to complete treatment for possible neurosyphilis Maintain aspiration precaution. Neurology following Oral care D/w nursing Attending Co-Sign Attending Co-Sign The patient was seen and interviewed as well as examined at the bedside. The chart was reviewed. The case was discussed. Agree with the plan of care. ALISA BOSCH APRN Jul 07, 2018 11:33 CHET AVENDANO MD Jul 07, 2018 15:54
[2018-07-07 15:15] VITALS: BP 130/61
--- NOTE | 2018-07-07 16:40 | PDOC ---
PROGRESS NOTES Assessment Assessment Status epilepticus, controlled on 07/02/18. Complex focal seizure went status epilepticus on 07/02/16. Metabolic encephalopathy. Hypertensive encephalopathy. Hypertensive emergency, BP 214/112 mmHg. Disorientation. Confusion. Abnormal chorea like movements in left UE. HTN, poorly controlled. DM. PVD. Smoking. Treponema Pallidum Ab positive. RECOMMENDATIONS/PLAN: Continue Depakote 500 mg q8h IV. Tegretol 200 mg bid when can take PO. Discontinued Keppra, sleepiness. Brain MRI was unable to perform on him due to metallic projects at the floor of the left maxillary sinus. Treat medical diseases. Consulted ID. BP control. EEG on 07/03/18: Asymmetric cerebral activity. Diffuse slowing in the right side hemispheric area. HISTORY OF THE PRESENT ILLNESS: This is a 63-y-old descent male patient admitted due to noted altered mental state changes with abnormal movements in left side. Per staff, girlfriend mentioned noting him to be disoriented and EMS was called. He speaks Slovak. He was noted with abnormal movements while on floor he was noted with seizure episodes. No seizure history reported by his girlfriend. No noted complains of any CP SOB leading to this event. No known hx of CAD but noted previously with PAD. It does not appear that he takes medications. Status epilepticus controlled after Ativan and Keppra administrations on 06/04/18 , but he has abnormal chorea like movements in his left UE. He stated on 07/06/18 that he had seizures in his left UE for many years. PAST MEDICAL HISTORY Cardiovascular: PAD; hx of asymptomatic SB. GI: GERD PAST SURGICAL HISTORY Left nephrectomy. FAMILY HISTORY Unknown SOCIAL HISTORY Smoke: <1 pack per day Lives: With friends ALLERGY: Unknown MEDICATIONS: Refer to MAR REVIEW OF SYSTEMS: Constitutional: No malnutrition, cachexia. Head: No traumatic brain or head injury. Skin: No edema, or rash. Ear: No infection. Eyes: No vision loss or color blindness. Nose: No bleeding or purulent discharges. Hearing: No hearing decrease. Neck: No injury. Cardiac: HTN. Pulmonary: Smoking. GI: No GI ulcer, GI bleeding. Urinary/genital: No dysuria, incontinence, urinary retention. Endocrinologic: Diabetes Mellitus. Skeletomuscular: No muscular atrophy. Neurological: see HP. Psychiatric: Denies drug use/abuse. Otherwise, not [id number] review of systems. PHYSICAL EXAMINATION: General appearance is in subacute distress. HEENT: Normocephalic and nontraumatic. Eyes, nose, ears, and throat are unremarkable. Neck is supple. No lymphadenopathy. No crepitus. Cardiovascular: S1, S2, regular rate and rhythm. Pulmonary: No rales heard. Abdomen: Bowel sounds are positive. Extremities: No rash, lesions, or edema. No restriction of range of motion NEUROLOGICAL EXAMINATION: Drowsiness. Able to follow a few commands and answer a few questions. Not oriented to time, place and person. PERRL. EOMI. CN: no acute focal findings. Muscle tone: within normal. Muscle strength: 4+ DTR: 3+. Plantar reflex: Neutral response bilaterally Gait: not examined in bed. Sensory exam: no acute abnormal findings. Not able to access cerebellar signs. F-T-N test not performed in unresponsive state. Left hand and UE jerking like movements significantly improved than before but still noticeable. Objective Objective Vital Signs Date Time Temp Pulse Resp B/P (MAP) Pulse Ox O2 Delivery O2 Flow Rate FiO2 07/07/18 15:15 97.9 72 16 130/61 (84) 96 Room Air 97.9 Intake and Output 07/07/18 07:00 Output Total 0 ml Balance 0 ml Output Urine Total 0 ml # Voids 5 Vitals Signs Vitals VS - Last 72 Hours, by Label Date Time Temp Pulse Resp B/P (MAP) Pulse Ox O2 Delivery O2 Flow Rate FiO2 07/07/18 15:15 97.9 72 16 130/61 (84) 96 Room Air 97.9 07/07/18 12:24 64 138/54 07/07/18 11:00 98.2 64 16 138/54 (82) 99 Room Air 98.2 07/07/18 08:00 Room Air 07/07/18 07:00 97.6 63 20 129/66 (87) 97 Room Air 97.6 07/07/18 05:46 66 124/68 07/07/18 03:00 98.3 68 16 157/59 (91) 95 Room Air 98.3 07/06/18 23:57 82 130/73 07/06/18 23:00 99.1 82 17 130/73 (92) 98 Room Air 99.1 07/06/18 20:00 Room Air 07/06/18 19:57 93 122/74 07/06/18 19:00 99.5 93 17 122/74 (90) 97 Room Air 99.5 07/06/18 15:00 98.5 61 14 113/90 (98) 91 Room Air 98.5 07/06/18 14:07 88 157/78 07/06/18 11:00 98.4 88 18 157/78 (104) 95 Room Air 98.4 07/06/18 08:00 Room Air 07/06/18 07:00 98.2 77 14 121/52 (75) 100 Room Air 98.2 Laboratory Laboratory Microbiology 07/02/18 Blood Culture - Final, Complete NO GROWTH AFTER 5 DAYS 07/05/18 CSF Gram Stain - Final, Complete Medication Medications Current Medications Carbamazepine (TEGretol) 200 mg BID PO ; Start 07/07/18 at 21:00 Comment Review of Relevant I have reviewed the following items kendrick (where applicable) has been applied. NICOLÁS CAMPOS MD Jul 07, 2018 16:40
[2018-07-07 19:00] VITALS: BP 154/55
[2018-07-07] MEDS: carBAMazepine 200 MG TABLET PO SCH (21:00)
[2018-07-07 23:00] VITALS: BP 120/51
[2018-07-08 03:00] VITALS: BP 178/70
[2018-07-08] MEDS: VALPROIC ACID (AS SODIUM SALT) 500 MG in IV DEXTROSE 5% 50 ML IV SCH ×3 (05:47→22:12)
[2018-07-08] MEDS: CEFEPIME HCL IV Push 1 GM VIAL. IVP SCH (05:47)
[2018-07-08] MEDS: NITROGLYCERIN OINT 1 GM PACKET. TP SCH ×3 (05:48→18:14)
[2018-07-08 07:00] VITALS: BP 142/70
[2018-07-08] MEDS: ASPIRIN CHEWABLE 81 MG TABLET. PO SCH (07:40)
[2018-07-08] MEDS: carBAMazepine 200 MG TABLET PO SCH ×2 (07:40→20:39)
[2018-07-08] MEDS: LACTOBACILLUS RHAMNOSUS GG 1 CAPSULE. PO SCH ×2 (07:40→20:39)
[2018-07-08] MEDS: ENOXAPARIN 40 MG/0.4 ML SYRINGE. SQ SCH (08:32)
--- NOTE | 2018-07-08 09:21 | PDOC ---
Infectious Disease Note Subjective Subjective Mumbles No fevers last 24 hours Vital Sign Vital Signs Vital Signs Date Time Temp Pulse Resp B/P (MAP) Pulse Ox O2 Delivery O2 Flow Rate FiO2 07/08/18 07:00 98.3 69 18 142/70 (94) 100 Room Air 98.3 Physical Exam PHYSICAL EXAM GENERAL: Propped up in bed, sleeping, NAD - arouses HEENT: Pupils equally round, Oral mucosa dry, build up secretions, poor dentition NECK: Supple. LUNGS: Clear HEART: S1 and S2. ABDOMEN: Soft, no grimace or guarding to palpation, BS present EXTREMITIES: No edema and no cyanosis. SKIN: Warm and dry. No generalized rash. TECHNICAL ARCHITECT: Difficult to arouse, ? understanding of [place] PIV Labs Micro Microbiology 07/02/18 Blood Culture - Final, Complete NO GROWTH AFTER 5 DAYS 07/05/18 CSF Gram Stain - Final, Complete Objective Assessment Encephalopathy, likely metabolic though pt is not able to give any history, no family at bedside. On cefepime - Unable to obtain MRI as the patient has metallic fragments in the floor of the left maxillary sinus. -s/p LP: CSF WBC 0, glucose 61, T protein 61.1. VDRL pending -HSV PCR negative; HIV nonreactive Status epilepticus. on Keppra Hypertensive encephalopathy. TPPA positive, syphilis unknown status, RPR still pending History of incarceration more than 20 years ago. Diabetes. Peripheral vascular disease. Left nephrectomy. Aspiration Pneumonitis Smoking Plan Plan of Care D/c Cefepime since 07/04 with ongoing MS issues and dose Rocephin as VDRL and RPR are still pending but not sure if + Neurosyphilis and Rocephin better for general coverage than PCN Off Acyclovir f/u CSF VDRL and RPR and other infectious disease serologies Pt unable to give details about Syphilis treatment, will need to complete treatment for possible neurosyphilis Maintain aspiration precaution. Neurology following Oral care D/w nursing CHET AVENDANO MD Jul 08, 2018 09:21
[2018-07-08] MEDS: cefTRIAXone IV Push 2 GM VIAL. IVP SCH (10:17)
[2018-07-08 11:00] VITALS: BP 148/65
--- NOTE | 2018-07-08 11:11 | PDOC ---
PROGRESS NOTES Chief Complaint Chief Complaint 1. Encephalopathy, likely metabolic though pt is not able to give any history, no family at bedside. Unable to obtain MRI as the patient has metallic fragments in the floor of the left maxillary sinus. 2. Status epilepticus 3. 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 4. Hypertensive encephalopathy 5. Disorientation, Confusion 6. TPPA positive,syphilis unknown status, RPR still pending, HIV negative, Acute hepatitis panel neg 7. History of incarceration more than 20 years ago. 8. Diabetes. 9. Peripheral vascular disease. 10. Smoking. 11. Left nephrectomy. 12. Peripheral arterial disease. 13. Gastroesophageal reflux disease. 14. Aspiration Pneumonitis 15. Tremors (?), etiology could be from noninfectious etiology History of Present Illness History of Present Illness Pt. presented to ER by EMS for tremors and AMS, on arrival appeared fatigued, somnolent, post-ictal w/ abnormal movements of left extremity. Romanian speaking. Pt. seen and examined this morning. Pt resting peacefully in bed, no response to verbal or tactile stimulus. Airway intact and patent, strong peripheral pulses. Hard to understand, mumbling. Started on Valproic acid this am. 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 Resting comfortably HEENT: Arcus senilis General: No acute distress, Other (disoriented, unable to communicate needs, Resting peacefully ) Heart: Regular rate (SR), Normal S1, Normal S2, No murmurs Lungs: Clear, Other (airway patent, normal respiratory effort) Abdomen: Normal bowel sounds, Soft, No hepatosplenomegaly, No masses Extremities: No clubbing, No cyanosis, No edema Skin: No rashes, No breakdown, No significant lesion Review of Systems Review of Systems Unable to obtain due to pt status. Assessment and Plan Assessmemt and Plan Assessment: Complex focal seizure w status epilepticus 07/02/16 Metabolic encephalopathy Hypertensive encephalopathy. Hx of Hypertensive emergency, BP 214/112 mmHg. Disorientation. Confusion. Abnormal chorea like movements in left UE. HTN, poorly controlled. DM. PVD. 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 Labs Microbiology 07/02/18 Blood Culture - Final, Complete NO GROWTH AFTER 5 DAYS 07/05/18 CSF Gram Stain - Final, Complete Medications Current Medications Sodium Chloride 1,000 ml @ 1,000 mls/hr 1X ONCE IV Last administered on at 10:00; Start 07/02/18 at 10:00; Stop 07/02/18 at 10:59; Status DC Lorazepam (Ativan) 0.5 mg 1X ONCE IV Last administered on 07/02/18at 12:12; Start 07/02/18 at 12:30; Stop 07/02/18 at 12:31; Status DC Aspirin (Children'S Aspirin) 324 mg 1X ONCE PO Last administered on 07/02/18at 13:18; Start 07/02/18 at 13:30; Stop 07/02/18 at 13:31; Status DC Acetaminophen (Tylenol) 650 mg PRN Q4HRS PRN PO FEVER; Start 07/02/18 at 14:30 ; Stop 07/02/18 at 18:38; Status DC Lorazepam (Ativan) 2 mg PRN Q4HRS PRN IV ANXIETY/AGITATION/ETOH WITHDRL Last administered on 07/07/18at 03:20; Start 07/02/18 at 15:30 Levetiracetam 750 mg/Dextrose 107.5 ml @ 420 mls/hr Q12HR IV Last administered on 07/03/18at 09:35; Start 07/02/18 at 16:30; Stop 07/03/18 at 14:17 ; Status DC Sodium Chloride (Normal Saline Flush 3ml) 3 ml QSHIFT PRN IV AFTER MEDS AND BLOOD DRAWS; Start 07/02/18 at 15:45 Sodium Chloride 1,000 ml @ 100 mls/hr Q10H IV Last administered on 07/02/18at 16:04; Start 07/02/18 at 16:30; Stop 07/04/18 at 16:37; Status DC Ondansetron HCl (Zofran) 4 mg PRN Q4HRS PRN IV NAUSEA/VOMITING; Start 07/02/18 at 15:45 Zolpidem Tartrate (Ambien) 5 mg PRN QHS PRN PO INSOMNIA; Start 07/02/18 at 15: 45 Acetaminophen (Tylenol) 650 mg PRN Q4HRS PRN PO TEMP OVER 100.4F OR MILD PAIN; Start 07/02/18 at 15:45 Al Hydroxide/Mg Hydroxide (Mylanta Plus Xs) 30 ml PRN DAILY PRN PO HEARTBURN / GAS; Start 07/02/18 at 15:45 Clonidine HCl (Catapres) 0.1 mg PRN Q6HRS PRN PO SBP>160 OR DBP>90; Start 07/02 at 15:45 Sodium Monofluorophosphate (Fleet Adult) 133 ml PRN DAILY PRN [place] CONSTIPATION; Start 07/02/18 at 15:45 Diphenhydramine HCl (Benadryl) 25 mg PRN Q4HRS PRN IVP ITCHING; Start 07/02/18 at 15:45 Docusate Sodium (Colace) 100 mg PRN BID PRN PO CONSTIPATION; Start 07/02/18 at 15:45 Albuterol Sulfate (Ventolin Neb Soln) 2.5 mg PRN Q4HRS PRN NEB SHORTNESS OF BREATH; Start 07/02/18 at 15:45 Guaifenesin (Robitussin) 200 mg PRN Q4HRS PRN PO COUGH; Start 07/02/18 at 15:45 Lorazepam (Ativan) 0.5 mg PRN Q4HRS PRN PO ANXIETY / AGITATION; Start 07/02/18 at 15:45 Enoxaparin Sodium (Lovenox 40mg Syringe) 40 mg DAILY SQ Last administered on 07/08/18at 08:32; Start 07/03/18 at 09:00 Hydralazine HCl (Apresoline Inj) 10 mg PRN Q4HRS PRN IVP ELEVATED BP, SEE COMMENTS Last administered on 07/04/18at 14:20; Start 07/02/18 at 16:45 Nitroglycerin (Nitro-Bid Oint) 0.5 inch Q6HRS TP Last administered on 07/08/18at 05:48; Start 07/02/18 at 17:30 Aspirin (Children'S Aspirin) 81 mg DAILY PO ; Start 07/03/18 at 09:00 Lorazepam (Ativan) 2 mg PRN Q4HRS PRN IV ALCOHOL WITHDRAWAL; Start 07/02/18 at 18:30; Status Cancel Cefepime HCl (Maxipime) 2 gm Q8HRS IVP Last administered on 07/04/18at 14:00; Start 07/03/18 at 14:30; Stop 07/04/18 at 18:56; Status DC Acyclovir Sodium 730 mg/Dextrose 264.6 ml @ 264.6 mls/ hr Q8HRS IV Last administered on 07/04/18at 05:07; Start 07/03/18 at 15:00; Stop 07/04/18 at 12:26 ; Status DC Vancomycin HCl (Vanco Per Pharmacy) 1 each PRN DAILY PRN MC SEE COMMENTS Last administered on 07/04/18at 12:31; Start 07/03/18 at 14:15; Stop 07/04/18 at 18:56 ; Status DC Ampicillin Sodium 2 gm/Sodium Chloride 100 ml @ 200 mls/hr Q4HRS IV Last administered on 07/04/18at 16:24; Start 07/03/18 at 16:00; Stop 07/04/18 at 18:56 ; Status DC Vancomycin HCl 1.5 gm/Sodium Chloride 500 ml @ 250 mls/hr 1X ONCE IV Last administered on 07/03/18at 17:54; Start 07/03/18 at 15:00; Stop 07/03/18 at 16:59 ; Status DC Levetiracetam 500 mg/Dextrose 105 ml @ 420 mls/hr Q12HR IV Last administered on 07/07/18at 09:55; Start 07/03/18 at 21:00; Stop 07/07/18 at 11:46; Status DC Divalproex Sodium (Depakote) 500 mg BID PO ; Start 07/03/18 at 21:00; Stop 07/04 at 16:20; Status DC Vancomycin HCl 1 gm/Sodium Chloride 250 ml @ 250 mls/hr Q12H IV Last administered on 07/04/18at 18:45; Start 07/04/18 at 06:00; Stop 07/04/18 at 18:58 ; Status DC Vancomycin HCl (Vancomycin Trough Level) 1 each 1X ONCE MC ; Start 07/05/18 at 05:30; Stop 07/05/18 at 05:31; Status Cancel Amino Acids/ Glycerin/ Electrolytes 1,000 ml @ 80 mls/hr [id number] IV Last administered on 07/07/18at 23:32; Start 07/03/18 at 19:15 Acyclovir Sodium 620 mg/Dextrose 262.4 ml @ 262.4 mls/ hr Q8HRS IV Last administered on 07/05/18at 05:05; Start 07/04/18 at 14:00; Stop 07/05/18 at 13:59 ; Status DC Lactobacillus Rhamnosus (Culturelle) 1 cap BID PO ; Start 07/04/18 at 21:00 Valproic Acid 500 mg/Dextrose 55 ml @ 55 mls/hr Q8HRS IV Last administered on at 05:47; Start 07/04/18 at 17:00 Acyclovir Sodium 620 mg/Dextrose 112.4 ml @ 112.4 mls/ hr Q8HRS IV Last administered on 07/06/18at 05:19; Start 07/05/18 at 14:00; Stop 07/06/18 at 13:52 ; Status DC Cefepime HCl (Maxipime) 1 gm Q8HRS IVP Last administered on 07/08/18at 05:47; Start 07/04/18 at 22:00; Stop 07/08/18 at 09:20; Status DC Iohexol (Omnipaque 350 Mg/ml) 75 ml 1X ONCE IV Last administered on 07/05/18at 11:45; Start 07/05/18 at 11:15; Stop 07/05/18 at 11:16; Status DC Info (CONTRAST GIVEN -- Rx MONITORING) 1 each PRN DAILY PRN MC SEE COMMENTS; Start 07/05/18 at 11:30; Stop 07/07/18 at 11:29; Status DC Carbamazepine (TEGretol) 200 mg BID PO ; Start 07/07/18 at 21:00 Ceftriaxone Sodium (Rocephin) 2 gm Q24H IVP Last administered on 07/08/18at 10:17 ; Start 07/08/18 at 10:00 Active Scripts Active Reported Zithromax (Azithromycin) 500 Mg Tablet 1 Tab PO DAILY Aspirin 81 Mg Tab.chew 81 Mg PO DAILY Hydrocodone-Apap 5-325 (Hydrocodone Bit/Acetaminophen) 1 Tab Tablet 1 Tab PO PRN Q6HRS PRN Vitals/I & O Vital Sign - Last 24 Hours 07/07/18 07/07/18 07/07/18 07/07/18 11:00 12:24 15:15 17:44 Temp 98.2 97.9 98.2 97.9 Pulse 64 64 72 72 Resp 16 16 B/P (MAP) 138/54 (82) 138/54 130/61 (84) 130/61 Pulse Ox 99 96 O2 Delivery Room Air Room Air 07/07/18 07/07/18 07/07/18 07/07/18 19:00 19:55 23:00 23:32 Temp 97.8 98.3 97.8 98.3 Pulse 76 59 59 Resp 18 18 B/P (MAP) 154/55 (88) 120/51 (74) 120/51 Pulse Ox 95 97 O2 Delivery Room Air Room Air Room Air 07/08/18 07/08/18 07/08/18 07/08/18 03:00 05:48 07:00 08:00 Temp 98.3 98.3 98.3 98.3 Pulse 70 70 69 Resp 18 18 B/P (MAP) 178/70 (106) 178/70 142/70 (94) Pulse Ox 98 100 O2 Delivery Room Air Room Air Room Air Intake and Output 07/07/18 07/07/18 07/08/18 15:00 23:00 07:00 Intake Total 1055 ml 55 ml Balance 1055 ml 55 ml Nutrition Consultation Dietary Evaluation: Recommendations by RD: PPN/TPN Comments: Continue PPN for short-term nutrition needs If extented NPO (>7 days), recommend consideration of dobhoff placement for TF to better meet nutrition needs Expected Outcomes/Goals: Diet advancement Interpretation of weight loss: >7.5% in 3 months Malnutrition Findings: Weight Status: Appropriate RICK MOREJON III DO Jul 08, 2018 11:11
--- NOTE | 2018-07-08 12:09 | PDOC ---
PROGRESS NOTES Assessment Problems Medical Problems: (1) Elevated troponin Status: Acute (2) Tremor Status: Acute Status epilepticus, controlled on 07/02/18. Complex focal seizure went status epilepticus on 07/02/16. Metabolic encephalopathy. Hypertensive encephalopathy. Hypertensive emergency, BP 214/112 mmHg. Disorientation. Confusion. Abnormal chorea like movements in left UE, chronic, none observed today. HTN, poorly controlled. DM. PVD. Smoking. Treponema Pallidum Ab positive. Still NPO Plan Continue Depakote 500 mg q8h IV. Tegretol 200 mg bid when can take PO. Discontinued Keppra, sleepiness. No brain MRI due to metallic objects at the floor of the left maxillary sinus. Treat medical diseases. Consulted ID. BP control. Speech therapy following Subjective No complaints Objective Vital Signs Date Time Temp Pulse Resp B/P (MAP) Pulse Ox O2 Delivery O2 Flow Rate FiO2 07/08/18 11:00 97.8 81 18 148/65 (92) 90 Room Air 97.8 Intake and Output 07/08/18 06:59 Intake Total 1110 ml Balance 1110 ml IV Total 1110 ml # Voids 6 PHYSICAL EXAM Alert. Oriented to year, "Hopsital," and person. PERRL. EOMI. CN: no focal findings. Muscle tone: normal. Muscle strength: 4/5 DTR: 2+ Plantar reflex: flexor Gait: not examined in bed. Sensory exam: no abnormal findings. No cerebellar signs elicited. No seizure activity observed Review of Relevant I have reviewed the following items kendrick (where applicable) has been applied. Labs CSF, 07/03/18:0 white blood cells, 16 red blood cells, glucose 61, protein 61.1 Microbiology 07/02/18 Blood Culture - Final, Complete NO GROWTH AFTER 5 DAYS 07/05/18 CSF Gram Stain - Final, Complete Medications Current Medications Sodium Chloride 1,000 ml @ 1,000 mls/hr 1X ONCE IV Last administered on at 10:00; Start 07/02/18 at 10:00; Stop 07/02/18 at 10:59; Status DC Lorazepam (Ativan) 0.5 mg 1X ONCE IV Last administered on 07/02/18at 12:12; Start 07/02/18 at 12:30; Stop 07/02/18 at 12:31; Status DC Aspirin (Children'S Aspirin) 324 mg 1X ONCE PO Last administered on 07/02/18at 13:18; Start 07/02/18 at 13:30; Stop 07/02/18 at 13:31; Status DC Acetaminophen (Tylenol) 650 mg PRN Q4HRS PRN PO FEVER; Start 07/02/18 at 14:30 ; Stop 07/02/18 at 18:38; Status DC Lorazepam (Ativan) 2 mg PRN Q4HRS PRN IV ANXIETY/AGITATION/ETOH WITHDRL Last administered on 07/07/18at 03:20; Start 07/02/18 at 15:30 Levetiracetam 750 mg/Dextrose 107.5 ml @ 420 mls/hr Q12HR IV Last administered on 07/03/18at 09:35; Start 07/02/18 at 16:30; Stop 07/03/18 at 14:17 ; Status DC Sodium Chloride (Normal Saline Flush 3ml) 3 ml QSHIFT PRN IV AFTER MEDS AND BLOOD DRAWS; Start 07/02/18 at 15:45 Sodium Chloride 1,000 ml @ 100 mls/hr Q10H IV Last administered on 07/02/18at 16:04; Start 07/02/18 at 16:30; Stop 07/04/18 at 16:37; Status DC Ondansetron HCl (Zofran) 4 mg PRN Q4HRS PRN IV NAUSEA/VOMITING; Start 07/02/18 at 15:45 Zolpidem Tartrate (Ambien) 5 mg PRN QHS PRN PO INSOMNIA; Start 07/02/18 at 15: 45 Acetaminophen (Tylenol) 650 mg PRN Q4HRS PRN PO TEMP OVER 100.4F OR MILD PAIN; Start 07/02/18 at 15:45 Al Hydroxide/Mg Hydroxide (Mylanta Plus Xs) 30 ml PRN DAILY PRN PO HEARTBURN / GAS; Start 07/02/18 at 15:45 Clonidine HCl (Catapres) 0.1 mg PRN Q6HRS PRN PO SBP>160 OR DBP>90; Start 07/02 at 15:45 Sodium Monofluorophosphate (Fleet Adult) 133 ml PRN DAILY PRN [place] CONSTIPATION; Start 07/02/18 at 15:45 Diphenhydramine HCl (Benadryl) 25 mg PRN Q4HRS PRN IVP ITCHING; Start 07/02/18 at 15:45 Docusate Sodium (Colace) 100 mg PRN BID PRN PO CONSTIPATION; Start 07/02/18 at 15:45 Albuterol Sulfate (Ventolin Neb Soln) 2.5 mg PRN Q4HRS PRN NEB SHORTNESS OF BREATH; Start 07/02/18 at 15:45 Guaifenesin (Robitussin) 200 mg PRN Q4HRS PRN PO COUGH; Start 07/02/18 at 15:45 Lorazepam (Ativan) 0.5 mg PRN Q4HRS PRN PO ANXIETY / AGITATION; Start 07/02/18 at 15:45 Enoxaparin Sodium (Lovenox 40mg Syringe) 40 mg DAILY SQ Last administered on 07/08/18at 08:32; Start 07/03/18 at 09:00 Hydralazine HCl (Apresoline Inj) 10 mg PRN Q4HRS PRN IVP ELEVATED BP, SEE COMMENTS Last administered on 07/04/18at 14:20; Start 07/02/18 at 16:45 Nitroglycerin (Nitro-Bid Oint) 0.5 inch Q6HRS TP Last administered on 07/08/18at 05:48; Start 07/02/18 at 17:30 Aspirin (Children'S Aspirin) 81 mg DAILY PO ; Start 07/03/18 at 09:00 Lorazepam (Ativan) 2 mg PRN Q4HRS PRN IV ALCOHOL WITHDRAWAL; Start 07/02/18 at 18:30; Status Cancel Cefepime HCl (Maxipime) 2 gm Q8HRS IVP Last administered on 07/04/18at 14:00; Start 07/03/18 at 14:30; Stop 07/04/18 at 18:56; Status DC Acyclovir Sodium 730 mg/Dextrose 264.6 ml @ 264.6 mls/ hr Q8HRS IV Last administered on 07/04/18at 05:07; Start 07/03/18 at 15:00; Stop 07/04/18 at 12:26 ; Status DC Vancomycin HCl (Vanco Per Pharmacy) 1 each PRN DAILY PRN MC SEE COMMENTS Last administered on 07/04/18at 12:31; Start 07/03/18 at 14:15; Stop 07/04/18 at 18:56 ; Status DC Ampicillin Sodium 2 gm/Sodium Chloride 100 ml @ 200 mls/hr Q4HRS IV Last administered on 07/04/18at 16:24; Start 07/03/18 at 16:00; Stop 07/04/18 at 18:56 ; Status DC Vancomycin HCl 1.5 gm/Sodium Chloride 500 ml @ 250 mls/hr 1X ONCE IV Last administered on 07/03/18at 17:54; Start 07/03/18 at 15:00; Stop 07/03/18 at 16:59 ; Status DC Levetiracetam 500 mg/Dextrose 105 ml @ 420 mls/hr Q12HR IV Last administered on 07/07/18at 09:55; Start 07/03/18 at 21:00; Stop 07/07/18 at 11:46; Status DC Divalproex Sodium (Depakote) 500 mg BID PO ; Start 07/03/18 at 21:00; Stop 07/04 at 16:20; Status DC Vancomycin HCl 1 gm/Sodium Chloride 250 ml @ 250 mls/hr Q12H IV Last administered on 07/04/18at 18:45; Start 07/04/18 at 06:00; Stop 07/04/18 at 18:58 ; Status DC Vancomycin HCl (Vancomycin Trough Level) 1 each 1X ONCE MC ; Start 07/05/18 at 05:30; Stop 07/05/18 at 05:31; Status Cancel Amino Acids/ Glycerin/ Electrolytes 1,000 ml @ 80 mls/hr [id number] IV Last administered on 07/07/18at 23:32; Start 07/03/18 at 19:15 Acyclovir Sodium 620 mg/Dextrose 262.4 ml @ 262.4 mls/ hr Q8HRS IV Last administered on 07/05/18at 05:05; Start 07/04/18 at 14:00; Stop 07/05/18 at 13:59 ; Status DC Lactobacillus Rhamnosus (Culturelle) 1 cap BID PO ; Start 07/04/18 at 21:00 Valproic Acid 500 mg/Dextrose 55 ml @ 55 mls/hr Q8HRS IV Last administered on at 05:47; Start 07/04/18 at 17:00 Acyclovir Sodium 620 mg/Dextrose 112.4 ml @ 112.4 mls/ hr Q8HRS IV Last administered on 07/06/18at 05:19; Start 07/05/18 at 14:00; Stop 07/06/18 at 13:52 ; Status DC Cefepime HCl (Maxipime) 1 gm Q8HRS IVP Last administered on 07/08/18at 05:47; Start 07/04/18 at 22:00; Stop 07/08/18 at 09:20; Status DC Iohexol (Omnipaque 350 Mg/ml) 75 ml 1X ONCE IV Last administered on 07/05/18at 11:45; Start 07/05/18 at 11:15; Stop 07/05/18 at 11:16; Status DC Info (CONTRAST GIVEN -- Rx MONITORING) 1 each PRN DAILY PRN MC SEE COMMENTS; Start 07/05/18 at 11:30; Stop 07/07/18 at 11:29; Status DC Carbamazepine (TEGretol) 200 mg BID PO ; Start 07/07/18 at 21:00 Ceftriaxone Sodium (Rocephin) 2 gm Q24H IVP Last administered on 07/08/18at 10:17 ; Start 07/08/18 at 10:00 Active Scripts Active Reported Zithromax (Azithromycin) 500 Mg Tablet 1 Tab PO DAILY Aspirin 81 Mg Tab.chew 81 Mg PO DAILY Hydrocodone-Apap 5-325 (Hydrocodone Bit/Acetaminophen) 1 Tab Tablet 1 Tab PO PRN Q6HRS PRN Vitals/I & O Vital Sign - Last 24 Hours 07/07/18 07/07/18 07/07/18 07/07/18 12:24 15:15 17:44 19:00 Temp 97.9 97.8 97.9 97.8 Pulse 64 72 72 76 Resp 16 18 B/P (MAP) 138/54 130/61 (84) 130/61 154/55 (88) Pulse Ox 96 95 O2 Delivery Room Air Room Air 07/07/18 07/07/18 07/07/18 07/08/18 19:55 23:00 23:32 03:00 Temp 98.3 98.3 98.3 98.3 Pulse 59 59 70 Resp 18 18 B/P (MAP) 120/51 (74) 120/51 178/70 (106) Pulse Ox 97 98 O2 Delivery Room Air Room Air Room Air 07/08/18 07/08/18 07/08/18 07/08/18 05:48 07:00 08:00 11:00 Temp 98.3 97.8 98.3 97.8 Pulse 70 69 81 Resp 18 18 B/P (MAP) 178/70 142/70 (94) 148/65 (92) Pulse Ox 100 90 O2 Delivery Room Air Room Air Room Air Intake and Output 07/07/18 07/07/18 07/08/18 14:59 22:59 06:59 Intake Total 1055 ml 55 ml Balance 1055 ml 55 ml Images EEG on 07/03/18: Asymmetric cerebral activity. Diffuse slowing in the right side hemispheric area. CT angiography head HISTORY: History of chronic left arm twitching, complex partial seizures History: Chronic left arm tingling ,Complex partial seizures COMPARISON: None available Technique: Axial CT angiographic images of the head was performed with IV contrast. Coronal and Sagittal 3-D MIP reformats are performed. Stenosis calculations for CT, MR, and conventional angiography are based upon measurements of the distal ICA diameter in accordance with the NASCET methodology. Stenosis calculations for carotid ultrasound studies are derived from validated velocity criteria which are known to correlate with the NASCET methodology. Exposure: One or more of the following individualized dose reduction techniques were utilized for this examination: 1. Automated exposure control 2. Adjustment of the mA and/or kV according to patient size 3. Use of iterative reconstruction technique FINDINGS: The visualized petrous, cavernous internal carotid arteries are patent. Mild atherosclerotic calcifications identified in the cavernous internal carotid arteries. The visualized middle cerebral arteries, anterior cerebral arteries are patent. The anterior communicating artery is patent. origin of the left posterior cerebral artery is identified. The bilateral vertebral arteries, basilar arteries are patent. The right posterior cerebral arteries. IMPRESSION: 1. No evidence of aneurysm or occlusion identified. Cervical spine CT without contrast, 07/04/18. HISTORY: Left arm dyskinesia. TECHNIQUE: Computed tomographic images of the cervical spine were obtained without contrast. Multiplanar reformatting was performed. *One or more of the following individualized dose reduction techniques were utilized for this examination: 1. Automated exposure control. 2. Adjustment of the mA and/or kV according to patient size. 3. Use of iterative reconstruction technique. COMPARISON: None. FINDINGS: The exam is limited due to motion. There is no significant listhesis. There is no acute or subacute fracture. There is anterior predominant endplate remodeling at multiple levels. There is no suspicious osseous lesion. There is no neck lymphadenopathy. There is minimal biapical emphysema. At C2-C3, there is a posterior central disc protrusion. There is no stenosis. At C3-C4, there is endplate. There is no stenosis At C4-C5, there is endplate remodeling. There is no stenosis. At C5-C6, there is a disc bulge and endplate remodeling. There is minimal right greater than left facet arthropathy. There is mild right foraminal stenosis. At C6-C7, there is a disc bulge and endplate remodeling. There is no stenosis. IMPRESSION: 1. Slightly limited exam due to motion. 2. Mild degenerative changes involving the cervical spine, described above. 3. No acute finding. Head CT without contrast, 07/02/18. There is no acute or subacute extra-axial or intraparenchymal hemorrhage. There is no mass effect or midline shift. There is no hydrocephalus. There is asymmetry within the right greater than left lateral ventricles, likely due to the combination of developmental asymmetry and asymmetric cerebral volume loss. There are areas of decreased attenuation within the cerebral white matter, nonspecific and likely related to chronic small vessel disease. There is paranasal sinus mucosal thickening. There is maxillary sinus wall thickening due to the sequela of chronic sinusitis. The mastoid air cells are clear. No suspicious calvarial lesion is seen. There is a prominent left frontal bone and arachnoid granulation. IMPRESSION: 1. No acute intracranial finding. Note is made that MRI is more sensitive for acute infarction. 2. Decreased attenuation within the cerebral white matter, likely due to chronic small vessel disease. 3. Cerebral atrophy. MY OTT MD Jul 08, 2018 12:09
[2018-07-08 12:14] LABS: WEST NILE IGG CSF Positive (Negative); WEST NILE IGM CSF Negative (Negative)
[2018-07-08] MEDS: AMINO AC 3%/ELECTROLYTE/GLYCER 1,000 ML IV SCH (12:34)
[2018-07-08 15:00] VITALS: BP 169/62
[2018-07-08 19:00] VITALS: BP 163/83
[2018-07-08 22:38] VITALS: BP 164/69
[2018-07-09] MEDS: NITROGLYCERIN OINT 1 GM PACKET. TP SCH ×4 (00:06→18:20)
[2018-07-09 03:00] VITALS: BP 152/67
[2018-07-09 04:25] LABS: BASO % 0 % (0-3); EOS # 1.5 x10^3/uL (0.0-0.7); EOS % 24 % (0-3); HEMATOCRIT 41.6 % (39.0-53.0); HEMOGLOBIN 13.3 g/dL (13.0-17.5); LYMPH # 0.8 x10^3/uL (1.0-4.8); LYMPH % 14 % (24-48); MEAN CORPUSCULAR HEMOGLOBIN 25 pg (25-35); MEAN CORPUSCULAR HGB CONC 32 g/dL (31-37); MEAN CORPUSCULAR VOLUME 76 fL (79-100); MONO # 0.7 x10^3/uL (0.0-1.1); MONO % 12 % (0-9); NEUT # 3.1 x10^3uL (1.8-7.7); NEUT % 50 % (31-73); PLATELET COUNT 229 x10^3/uL (140-400); RED BLOOD COUNT 5.44 x10^6/uL (4.30-5.70); RED CELL DISTRIBUTION WIDTH 14.7 % (11.5-14.5); WHITE BLOOD COUNT 6.1 x10^3/uL (4.0-11.0)
[2018-07-09 04:34] LABS: CALCIUM 9.2 mg/dL (8.5-10.1); CREATININE 0.7 mg/dL (0.7-1.3); GFR 113.9; POTASSIUM 4.8 mmol/L (3.5-5.1)
[2018-07-09] MEDS: AMINO AC 3%/ELECTROLYTE/GLYCER 1,000 ML IV SCH ×2 (05:09→12:45)
[2018-07-09 05:29] LABS: % EOS 23 % (0-5); % LYMPHS 15 % (24-48); % MONOS 9 % (0-10); % SEGS 53 % (35-66); PLT ESTIMATE ADEQUATE (ADEQUATE)
[2018-07-09] MEDS: VALPROIC ACID (AS SODIUM SALT) 500 MG in IV DEXTROSE 5% 50 ML IV SCH ×3 (05:38→21:58)
[2018-07-09 07:00] VITALS: BP 156/70
[2018-07-09] MEDS: ASPIRIN CHEWABLE 81 MG TABLET. PO SCH (07:12)
[2018-07-09] MEDS: carBAMazepine 200 MG TABLET PO SCH ×2 (07:12→21:58)
[2018-07-09] MEDS: LACTOBACILLUS RHAMNOSUS GG 1 CAPSULE. PO SCH ×2 (07:12→21:58)
[2018-07-09] MEDS: cefTRIAXone IV Push 2 GM VIAL. IVP SCH (08:02)
[2018-07-09] MEDS: ENOXAPARIN 40 MG/0.4 ML SYRINGE. SQ SCH (08:02)
--- NOTE | 2018-07-09 10:06 | RAD ---
CT Head without contrast 07/09/2018 8:40 AM Indication: Altered mental status. Comparison: CT head without contrast July 02, 2018 Findings: No intracranial hemorrhage is seen. No evidence of acute territorial infarct is seen. Note that CT is limited in sensitivity for acute ischemia. Age-related atrophic changes are noted. There is patchy periventricular and deep white matter hypoattenuation which is nonspecific, but most commonly relates to chronic small vessel disease. The appearance is similar to comparison study. No abnormal extra axial fluid collection is identified. No mass effect or midline shift is seen. No acute osseous abnormalities are seen. Impression: 1. No acute intracranial process identified 2. Age-related atrophy, and evidence of chronic small vessel disease as described. The appearance is similar to comparison exam CT DOSING PQRS STATEMENT: One or more of the following individualized dose reduction techniques were utilized for this examination: 1. Automated exposure control 2. Adjustment of the mA and/or kV according to patient size 3. Use of iterative reconstruction technique Electronically signed by: Rohan Dominguez MD (07/09/2018 10:02 AM) [id number]
--- NOTE | 2018-07-09 10:52 | PDOC ---
PROGRESS NOTES Chief Complaint Chief Complaint 1. Encephalopathy, likely metabolic though pt is not able to give any history, no family at bedside. Unable to obtain MRI as the patient has metallic fragments in the floor of the left maxillary sinus. 2. Status epilepticus 3. 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 4. Hypertensive encephalopathy 5. Disorientation, Confusion 6. TPPA positive,syphilis unknown status, RPR still pending, HIV negative, Acute hepatitis panel neg 7. History of incarceration more than 20 years ago. 8. Diabetes. 9. Peripheral vascular disease. 10. Smoking. 11. Left nephrectomy. 12. Peripheral arterial disease. 13. Gastroesophageal reflux disease. 14. Aspiration Pneumonitis 15. Tremors (?), etiology could be from noninfectious etiology History of Present Illness History of Present Illness Pt. seen and examined, he was just getting back from repeat CT for reported mental status changes. Resting comfortably and aroused to verbal stimulus, pt was mumbling and moving lower extremities. Significant other was present and on upon questioning, mumbled the year he was born. Hard to understand - [place] speaking Tracks with eyes Discussed plan of care with RN. Airway intact and patent, strong peripheral pulses. Significant other reports pt does not consume alcohol or use recreational drugs and this should be taken off his EMR. 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 HEENT: Arcus senilis, tracking with eyes General: No acute distress, Other (disoriented, unable to communicate needs, arousable ) Heart: Regular rate, Normal S1, Normal S2, No murmurs Lungs: Clear, Other (airway patent, normal respiratory effort) Abdomen: Normal bowel sounds, Soft, No tenderness, No hepatosplenomegaly, No masses Extremities: No clubbing, No cyanosis, No edema, Other (Strong peripheral pulses 3+) Skin: No rashes, No breakdown, No significant lesion Labs LABS Laboratory Tests Test 07/09/18 03:50 07/09/18 03:55 White Blood Count 6.1 x10^3/uL (4.0-11.0) Red Blood Count 5.44 x10^6/uL (4.30-5.70) Hemoglobin 13.3 g/dL (13.0-17.5) Hematocrit 41.6 % (39.0-53.0) Mean Corpuscular Volume 76 fL (79-100) Mean Corpuscular Hemoglobin 25 pg (25-35) Mean Corpuscular Hemoglobin Concent 32 g/dL (31-37) Red Cell Distribution Width 14.7 % (11.5-14.5) Platelet Count 229 x10^3/uL (140-400) Neutrophils (%) (Auto) 50 % (31-73) Lymphocytes (%) (Auto) 14 % (24-48) Monocytes (%) (Auto) 12 % (0-9) Eosinophils (%) (Auto) 24 % (0-3) Basophils (%) (Auto) 0 % (0-3) Neutrophils # (Auto) 3.1 x10^3uL (1.8-7.7) Lymphocytes # (Auto) 0.8 x10^3/uL (1.0-4.8) Monocytes # (Auto) 0.7 x10^3/uL (0.0-1.1) Eosinophils # (Auto) 1.5 x10^3/uL (0.0-0.7) Basophils # (Auto) 0.0 x10^3/uL (0.0-0.2) Segmented Neutrophils % 53 % (35-66) Lymphocytes % 15 % (24-48) Monocytes % 9 % (0-10) Eosinophils % 23 % (0-5) Platelet Estimate Adequate (ADEQUATE) Sodium Level 138 mmol/L (136-145) Potassium Level 4.8 mmol/L (3.5-5.1) Chloride Level 103 mmol/L (98-107) Carbon Dioxide Level 25 mmol/L (21-32) Anion Gap 10 (6-14) Blood Urea Nitrogen 22 mg/dL (8-26) Creatinine 0.7 mg/dL (0.7-1.3) Estimated GFR (Cockcroft-Gault) 113.9 Glucose Level 97 mg/dL (70-99) Calcium Level 9.2 mg/dL (8.5-10.1) Review of Systems Review of Systems Not obtainable given pt status. Assessment and Plan Assessmemt and Plan Assessment: Complex focal seizure w status epilepticus 07/02/16 Metabolic encephalopathy Hypertensive encephalopathy Hx of Hypertensive emergency, BP 214/112 mmHg. Disorientation Confusion Abnormal chorea like movements in left UE. HTN, poorly controlled. DM. PVD. Tobacco abuse Treponema Pallidum Ab positive Plan: Repeat CT this am for reported mental status changes, awaiting results Recheck labs in AM Home Meds Continue fluids and PPN Started on Valproic acid @ 55mls/hr, appreciate Neurology input Received Rocephin, appreciate ID input Aspiration precautions PT/OT/[employer] orders Problems Medical Problems: (1) Elevated troponin Status: Acute (2) Tremor Status: Acute Comment Review of Relevant I have reviewed the following items kendrick (where applicable) has been applied. Labs Laboratory Tests Test 07/09/18 03:50 07/09/18 03:55 White Blood Count 6.1 x10^3/uL (4.0-11.0) Red Blood Count 5.44 x10^6/uL (4.30-5.70) Hemoglobin 13.3 g/dL (13.0-17.5) Hematocrit 41.6 % (39.0-53.0) Mean Corpuscular Volume 76 fL (79-100) Mean Corpuscular Hemoglobin 25 pg (25-35) Mean Corpuscular Hemoglobin Concent 32 g/dL (31-37) Red Cell Distribution Width 14.7 % (11.5-14.5) Platelet Count 229 x10^3/uL (140-400) Neutrophils (%) (Auto) 50 % (31-73) Lymphocytes (%) (Auto) 14 % (24-48) Monocytes (%) (Auto) 12 % (0-9) Eosinophils (%) (Auto) 24 % (0-3) Basophils (%) (Auto) 0 % (0-3) Neutrophils # (Auto) 3.1 x10^3uL (1.8-7.7) Lymphocytes # (Auto) 0.8 x10^3/uL (1.0-4.8) Monocytes # (Auto) 0.7 x10^3/uL (0.0-1.1) Eosinophils # (Auto) 1.5 x10^3/uL (0.0-0.7) Basophils # (Auto) 0.0 x10^3/uL (0.0-0.2) Segmented Neutrophils % 53 % (35-66) Lymphocytes % 15 % (24-48) Monocytes % 9 % (0-10) Eosinophils % 23 % (0-5) Platelet Estimate Adequate (ADEQUATE) Sodium Level 138 mmol/L (136-145) Potassium Level 4.8 mmol/L (3.5-5.1) Chloride Level 103 mmol/L (98-107) Carbon Dioxide Level 25 mmol/L (21-32) Anion Gap 10 (6-14) Blood Urea Nitrogen 22 mg/dL (8-26) Creatinine 0.7 mg/dL (0.7-1.3) Estimated GFR (Cockcroft-Gault) 113.9 Glucose Level 97 mg/dL (70-99) Calcium Level 9.2 mg/dL (8.5-10.1) Laboratory Tests Test 07/09/18 03:50 07/09/18 03:55 White Blood Count 6.1 x10^3/uL (4.0-11.0) Red Blood Count 5.44 x10^6/uL (4.30-5.70) Hemoglobin 13.3 g/dL (13.0-17.5) Hematocrit 41.6 % (39.0-53.0) Mean Corpuscular Volume 76 fL (79-100) Mean Corpuscular Hemoglobin 25 pg (25-35) Mean Corpuscular Hemoglobin Concent 32 g/dL (31-37) Red Cell Distribution Width 14.7 % (11.5-14.5) Platelet Count 229 x10^3/uL (140-400) Neutrophils (%) (Auto) 50 % (31-73) Lymphocytes (%) (Auto) 14 % (24-48) Monocytes (%) (Auto) 12 % (0-9) Eosinophils (%) (Auto) 24 % (0-3) Basophils (%) (Auto) 0 % (0-3) Neutrophils # (Auto) 3.1 x10^3uL (1.8-7.7) Lymphocytes # (Auto) 0.8 x10^3/uL (1.0-4.8) Monocytes # (Auto) 0.7 x10^3/uL (0.0-1.1) Eosinophils # (Auto) 1.5 x10^3/uL (0.0-0.7) Basophils # (Auto) 0.0 x10^3/uL (0.0-0.2) Segmented Neutrophils % 53 % (35-66) Lymphocytes % 15 % (24-48) Monocytes % 9 % (0-10) Eosinophils % 23 % (0-5) Platelet Estimate Adequate (ADEQUATE) Sodium Level 138 mmol/L (136-145) Potassium Level 4.8 mmol/L (3.5-5.1) Chloride Level 103 mmol/L (98-107) Carbon Dioxide Level 25 mmol/L (21-32) Anion Gap 10 (6-14) Blood Urea Nitrogen 22 mg/dL (8-26) Creatinine 0.7 mg/dL (0.7-1.3) Estimated GFR (Cockcroft-Gault) 113.9 Glucose Level 97 mg/dL (70-99) Calcium Level 9.2 mg/dL (8.5-10.1) Microbiology 07/02/18 Blood Culture - Final, Complete NO GROWTH AFTER 5 DAYS 07/05/18 CSF Gram Stain - Final, Complete Medications Current Medications Sodium Chloride 1,000 ml @ 1,000 mls/hr 1X ONCE IV Last administered on at 10:00; Start 07/02/18 at 10:00; Stop 07/02/18 at 10:59; Status DC Lorazepam (Ativan) 0.5 mg 1X ONCE IV Last administered on 07/02/18at 12:12; Start 07/02/18 at 12:30; Stop 07/02/18 at 12:31; Status DC Aspirin (Children'S Aspirin) 324 mg 1X ONCE PO Last administered on 07/02/18at 13:18; Start 07/02/18 at 13:30; Stop 07/02/18 at 13:31; Status DC Acetaminophen (Tylenol) 650 mg PRN Q4HRS PRN PO FEVER; Start 07/02/18 at 14:30 ; Stop 07/02/18 at 18:38; Status DC Lorazepam (Ativan) 2 mg PRN Q4HRS PRN IV ANXIETY/AGITATION/ETOH WITHDRL Last administered on 07/07/18at 03:20; Start 07/02/18 at 15:30 Levetiracetam 750 mg/Dextrose 107.5 ml @ 420 mls/hr Q12HR IV Last administered on 07/03/18at 09:35; Start 07/02/18 at 16:30; Stop 07/03/18 at 14:17 ; Status DC Sodium Chloride (Normal Saline Flush 3ml) 3 ml QSHIFT PRN IV AFTER MEDS AND BLOOD DRAWS; Start 07/02/18 at 15:45 Sodium Chloride 1,000 ml @ 100 mls/hr Q10H IV Last administered on 07/02/18at 16:04; Start 07/02/18 at 16:30; Stop 07/04/18 at 16:37; Status DC Ondansetron HCl (Zofran) 4 mg PRN Q4HRS PRN IV NAUSEA/VOMITING; Start 07/02/18 at 15:45 Zolpidem Tartrate (Ambien) 5 mg PRN QHS PRN PO INSOMNIA; Start 07/02/18 at 15: 45 Acetaminophen (Tylenol) 650 mg PRN Q4HRS PRN PO TEMP OVER 100.4F OR MILD PAIN; Start 07/02/18 at 15:45 Al Hydroxide/Mg Hydroxide (Mylanta Plus Xs) 30 ml PRN DAILY PRN PO HEARTBURN / GAS; Start 07/02/18 at 15:45 Clonidine HCl (Catapres) 0.1 mg PRN Q6HRS PRN PO SBP>160 OR DBP>90; Start 07/02 at 15:45 Sodium Monofluorophosphate (Fleet Adult) 133 ml PRN DAILY PRN [place] CONSTIPATION; Start 07/02/18 at 15:45 Diphenhydramine HCl (Benadryl) 25 mg PRN Q4HRS PRN IVP ITCHING; Start 07/02/18 at 15:45 Docusate Sodium (Colace) 100 mg PRN BID PRN PO CONSTIPATION; Start 07/02/18 at 15:45 Albuterol Sulfate (Ventolin Neb Soln) 2.5 mg PRN Q4HRS PRN NEB SHORTNESS OF BREATH; Start 07/02/18 at 15:45 Guaifenesin (Robitussin) 200 mg PRN Q4HRS PRN PO COUGH; Start 07/02/18 at 15:45 Lorazepam (Ativan) 0.5 mg PRN Q4HRS PRN PO ANXIETY / AGITATION; Start 07/02/18 at 15:45 Enoxaparin Sodium (Lovenox 40mg Syringe) 40 mg DAILY SQ Last administered on 07/09/18at 08:02; Start 07/03/18 at 09:00 Hydralazine HCl (Apresoline Inj) 10 mg PRN Q4HRS PRN IVP ELEVATED BP, SEE COMMENTS Last administered on 07/04/18at 14:20; Start 07/02/18 at 16:45 Nitroglycerin (Nitro-Bid Oint) 0.5 inch Q6HRS TP Last administered on 07/09/18at 05:40; Start 07/02/18 at 17:30 Aspirin (Children'S Aspirin) 81 mg DAILY PO ; Start 07/03/18 at 09:00 Lorazepam (Ativan) 2 mg PRN Q4HRS PRN IV ALCOHOL WITHDRAWAL; Start 07/02/18 at 18:30; Status Cancel Cefepime HCl (Maxipime) 2 gm Q8HRS IVP Last administered on 07/04/18at 14:00; Start 07/03/18 at 14:30; Stop 07/04/18 at 18:56; Status DC Acyclovir Sodium 730 mg/Dextrose 264.6 ml @ 264.6 mls/ hr Q8HRS IV Last administered on 07/04/18at 05:07; Start 07/03/18 at 15:00; Stop 07/04/18 at 12:26 ; Status DC Vancomycin HCl (Vanco Per Pharmacy) 1 each PRN DAILY PRN MC SEE COMMENTS Last administered on 07/04/18at 12:31; Start 07/03/18 at 14:15; Stop 07/04/18 at 18:56 ; Status DC Ampicillin Sodium 2 gm/Sodium Chloride 100 ml @ 200 mls/hr Q4HRS IV Last administered on 07/04/18at 16:24; Start 07/03/18 at 16:00; Stop 07/04/18 at 18:56 ; Status DC Vancomycin HCl 1.5 gm/Sodium Chloride 500 ml @ 250 mls/hr 1X ONCE IV Last administered on 07/03/18at 17:54; Start 07/03/18 at 15:00; Stop 07/03/18 at 16:59 ; Status DC Levetiracetam 500 mg/Dextrose 105 ml @ 420 mls/hr Q12HR IV Last administered on 07/07/18at 09:55; Start 07/03/18 at 21:00; Stop 07/07/18 at 11:46; Status DC Divalproex Sodium (Depakote) 500 mg BID PO ; Start 07/03/18 at 21:00; Stop 07/04 at 16:20; Status DC Vancomycin HCl 1 gm/Sodium Chloride 250 ml @ 250 mls/hr Q12H IV Last administered on 07/04/18at 18:45; Start 07/04/18 at 06:00; Stop 07/04/18 at 18:58 ; Status DC Vancomycin HCl (Vancomycin Trough Level) 1 each 1X ONCE MC ; Start 07/05/18 at 05:30; Stop 07/05/18 at 05:31; Status Cancel Amino Acids/ Glycerin/ Electrolytes 1,000 ml @ 80 mls/hr [id number] IV Last administered on 07/09/18at 05:09; Start 07/03/18 at 19:15 Acyclovir Sodium 620 mg/Dextrose 262.4 ml @ 262.4 mls/ hr Q8HRS IV Last administered on 07/05/18at 05:05; Start 07/04/18 at 14:00; Stop 07/05/18 at 13:59 ; Status DC Lactobacillus Rhamnosus (Culturelle) 1 cap BID PO ; Start 07/04/18 at 21:00 Valproic Acid 500 mg/Dextrose 55 ml @ 55 mls/hr Q8HRS IV Last administered on at 05:38; Start 07/04/18 at 17:00 Acyclovir Sodium 620 mg/Dextrose 112.4 ml @ 112.4 mls/ hr Q8HRS IV Last administered on 07/06/18at 05:19; Start 07/05/18 at 14:00; Stop 07/06/18 at 13:52 ; Status DC Cefepime HCl (Maxipime) 1 gm Q8HRS IVP Last administered on 07/08/18at 05:47; Start 07/04/18 at 22:00; Stop 07/08/18 at 09:20; Status DC Iohexol (Omnipaque 350 Mg/ml) 75 ml 1X ONCE IV Last administered on 07/05/18at 11:45; Start 07/05/18 at 11:15; Stop 07/05/18 at 11:16; Status DC Info (CONTRAST GIVEN -- Rx MONITORING) 1 each PRN DAILY PRN MC SEE COMMENTS; Start 07/05/18 at 11:30; Stop 07/07/18 at 11:29; Status DC Carbamazepine (TEGretol) 200 mg BID PO ; Start 07/07/18 at 21:00 Ceftriaxone Sodium (Rocephin) 2 gm Q24H IVP Last administered on 07/09/18at 08:02 ; Start 07/08/18 at 10:00 Active Scripts Active Reported Zithromax (Azithromycin) 500 Mg Tablet 1 Tab PO DAILY Aspirin 81 Mg Tab.chew 81 Mg PO DAILY Hydrocodone-Apap 5-325 (Hydrocodone Bit/Acetaminophen) 1 Tab Tablet 1 Tab PO PRN Q6HRS PRN Vitals/I & O Vital Sign - Last 24 Hours 07/08/18 07/08/18 07/08/18 07/08/18 11:00 12:35 15:00 18:14 Temp 97.8 97.8 97.8 97.8 Pulse 81 81 64 64 Resp 18 16 B/P (MAP) 148/65 (92) 148/65 169/62 (97) 169/62 Pulse Ox 90 96 O2 Delivery Room Air Room Air 07/08/18 07/08/18 07/08/18 07/08/18 19:00 20:15 20:15 22:38 Temp 97.7 98.0 97.7 98.0 Pulse 68 59 Resp 18 18 B/P (MAP) 163/83 (109) 164/69 (100) Pulse Ox 100 100 O2 Delivery Room Air Room Air Room Air Room Air 07/09/18 07/09/18 07/09/18 07/09/18 00:06 03:00 05:40 07:00 Temp 98.0 98.1 98.0 98.1 Pulse 59 60 60 64 Resp 16 B/P (MAP) 164/69 152/67 (95) 152/67 156/70 (98) Pulse Ox 99 99 O2 Delivery Room Air Room Air 07/09/18 08:00 O2 Delivery Room Air Intake and Output 07/08/18 07/08/18 07/09/18 15:00 23:00 07:00 Intake Total 0 ml 55 ml Balance 0 ml 55 ml Nutrition Consultation Dietary Evaluation: Recommendations by RD: PPN/TPN Comments: Continue PPN for short-term nutrition needs If unable to advance diet per [employer] recommend consideration of dobhoff placement for TF to better meet nutrition needs Expected Outcomes/Goals: Diet advancement Interpretation of weight loss: >7.5% in 3 months Malnutrition Findings: Weight Status: Appropriate RICK MOREJON III DO Jul 09, 2018 10:52
[2018-07-09 11:00] VITALS: BP 135/64
[2018-07-09 11:10] LABS: AMPHETAMINE/METHAMPHETAMINE NEG (NEG); BARBITURATES NEG (NEG); BENZODIAZEPINES NEG (NEG); CANNABINOIDS NEG (NEG); COCAINE NEG (NEG); METHADONE NEG (NEG); OPIATES NEG (NEG); PHENCYCLIDINE NEG (NEG)
--- NOTE | 2018-07-09 11:40 | PDOC ---
PROGRESS NOTES Assessment Problems Medical Problems: (1) Elevated troponin Status: Acute (2) Tremor Status: Acute Status epilepticus, controlled on 07/02/18. Complex focal seizure went status epilepticus on 07/02/16. Metabolic encephalopathy. Hypertensive encephalopathy. Hypertensive emergency, BP 214/112 mmHg. Disorientation. Confusion. Abnormal chorea like movements in left UE, chronic, none observed today. HTN, poorly controlled. DM. PVD. Smoking. Treponema Pallidum Ab positive. Still NPO Girlfriend insists patient does not use alcohol, tobacco, or drugs Plan Repeat head CT Urine drug screen I will consider repeating EEG Continue Depakote 500 mg q8h IV. Tegretol 200 mg bid when can take PO. Discontinued Keppra, sleepiness. No brain MRI due to metallic objects at the floor of the left maxillary sinus. Treat medical diseases. Consulted ID. BP control. Speech therapy following Discussed with patient's girlfriend Subjective No complaints. Nurse says patient was bright and alert until girlfriend came in in the middle of the night, patient has not received any sedatives from us. Objective Vital Signs Date Time Temp Pulse Resp B/P (MAP) Pulse Ox O2 Delivery O2 Flow Rate FiO2 07/09/18 11:00 98.2 65 16 135/64 (87) 100 Room Air 98.2 Intake and Output 07/09/18 07:00 Intake Total 55 ml Balance 55 ml Intake Oral 0 ml IV Total 55 ml # Voids 5 PHYSICAL EXAM Not as alert as yesterday, knows he is in the hospital, does not know the date PERRL. EOMI. CN: no focal findings. Muscle tone: normal. Muscle strength: 4/5 DTR: 2+ Plantar reflex: flexor Gait: not examined in bed. Sensory exam: no abnormal findings. No cerebellar signs elicited. No seizure activity observed Review of Relevant I have reviewed the following items kendrick (where applicable) has been applied. Labs Laboratory Tests Test 07/09/18 03:50 07/09/18 03:55 07/09/18 10:50 White Blood Count 6.1 x10^3/uL (4.0-11.0) Red Blood Count 5.44 x10^6/uL (4.30-5.70) Hemoglobin 13.3 g/dL (13.0-17.5) Hematocrit 41.6 % (39.0-53.0) Mean Corpuscular Volume 76 fL (79-100) Mean Corpuscular Hemoglobin 25 pg (25-35) Mean Corpuscular Hemoglobin Concent 32 g/dL (31-37) Red Cell Distribution Width 14.7 % (11.5-14.5) Platelet Count 229 x10^3/uL (140-400) Neutrophils (%) (Auto) 50 % (31-73) Lymphocytes (%) (Auto) 14 % (24-48) Monocytes (%) (Auto) 12 % (0-9) Eosinophils (%) (Auto) 24 % (0-3) Basophils (%) (Auto) 0 % (0-3) Neutrophils # (Auto) 3.1 x10^3uL (1.8-7.7) Lymphocytes # (Auto) 0.8 x10^3/uL (1.0-4.8) Monocytes # (Auto) 0.7 x10^3/uL (0.0-1.1) Eosinophils # (Auto) 1.5 x10^3/uL (0.0-0.7) Basophils # (Auto) 0.0 x10^3/uL (0.0-0.2) Segmented Neutrophils % 53 % (35-66) Lymphocytes % 15 % (24-48) Monocytes % 9 % (0-10) Eosinophils % 23 % (0-5) Platelet Estimate Adequate (ADEQUATE) Sodium Level 138 mmol/L (136-145) Potassium Level 4.8 mmol/L (3.5-5.1) Chloride Level 103 mmol/L (98-107) Carbon Dioxide Level 25 mmol/L (21-32) Anion Gap 10 (6-14) Blood Urea Nitrogen 22 mg/dL (8-26) Creatinine 0.7 mg/dL (0.7-1.3) Estimated GFR (Cockcroft-Gault) 113.9 Glucose Level 97 mg/dL (70-99) Calcium Level 9.2 mg/dL (8.5-10.1) Urine Opiates Screen Neg (NEG) Urine Methadone Screen Neg (NEG) Urine Barbiturates Neg (NEG) Urine Phencyclidine Screen Neg (NEG) Urine Amphetamine/Methamphetamine Neg (NEG) Urine Benzodiazepines Screen Neg (NEG) Urine Cocaine Screen Neg (NEG) Urine Cannabinoids Screen Neg (NEG) Urine Ethyl Alcohol Neg (NEG) Laboratory Tests Test 07/09/18 03:50 07/09/18 03:55 07/09/18 10:50 White Blood Count 6.1 x10^3/uL (4.0-11.0) Red Blood Count 5.44 x10^6/uL (4.30-5.70) Hemoglobin 13.3 g/dL (13.0-17.5) Hematocrit 41.6 % (39.0-53.0) Mean Corpuscular Volume 76 fL (79-100) Mean Corpuscular Hemoglobin 25 pg (25-35) Mean Corpuscular Hemoglobin Concent 32 g/dL (31-37) Red Cell Distribution Width 14.7 % (11.5-14.5) Platelet Count 229 x10^3/uL (140-400) Neutrophils (%) (Auto) 50 % (31-73) Lymphocytes (%) (Auto) 14 % (24-48) Monocytes (%) (Auto) 12 % (0-9) Eosinophils (%) (Auto) 24 % (0-3) Basophils (%) (Auto) 0 % (0-3) Neutrophils # (Auto) 3.1 x10^3uL (1.8-7.7) Lymphocytes # (Auto) 0.8 x10^3/uL (1.0-4.8) Monocytes # (Auto) 0.7 x10^3/uL (0.0-1.1) Eosinophils # (Auto) 1.5 x10^3/uL (0.0-0.7) Basophils # (Auto) 0.0 x10^3/uL (0.0-0.2) Segmented Neutrophils % 53 % (35-66) Lymphocytes % 15 % (24-48) Monocytes % 9 % (0-10) Eosinophils % 23 % (0-5) Platelet Estimate Adequate (ADEQUATE) Sodium Level 138 mmol/L (136-145) Potassium Level 4.8 mmol/L (3.5-5.1) Chloride Level 103 mmol/L (98-107) Carbon Dioxide Level 25 mmol/L (21-32) Anion Gap 10 (6-14) Blood Urea Nitrogen 22 mg/dL (8-26) Creatinine 0.7 mg/dL (0.7-1.3) Estimated GFR (Cockcroft-Gault) 113.9 Glucose Level 97 mg/dL (70-99) Calcium Level 9.2 mg/dL (8.5-10.1) Urine Opiates Screen Neg (NEG) Urine Methadone Screen Neg (NEG) Urine Barbiturates Neg (NEG) Urine Phencyclidine Screen Neg (NEG) Urine Amphetamine/Methamphetamine Neg (NEG) Urine Benzodiazepines Screen Neg (NEG) Urine Cocaine Screen Neg (NEG) Urine Cannabinoids Screen Neg (NEG) Urine Ethyl Alcohol Neg (NEG) Microbiology 07/02/18 Blood Culture - Final, Complete NO GROWTH AFTER 5 DAYS 07/05/18 CSF Gram Stain - Final, Complete Medications Current Medications Sodium Chloride 1,000 ml @ 1,000 mls/hr 1X ONCE IV Last administered on at 10:00; Start 07/02/18 at 10:00; Stop 07/02/18 at 10:59; Status DC Lorazepam (Ativan) 0.5 mg 1X ONCE IV Last administered on 07/02/18at 12:12; Start 07/02/18 at 12:30; Stop 07/02/18 at 12:31; Status DC Aspirin (Children'S Aspirin) 324 mg 1X ONCE PO Last administered on 07/02/18at 13:18; Start 07/02/18 at 13:30; Stop 07/02/18 at 13:31; Status DC Acetaminophen (Tylenol) 650 mg PRN Q4HRS PRN PO FEVER; Start 07/02/18 at 14:30 ; Stop 07/02/18 at 18:38; Status DC Lorazepam (Ativan) 2 mg PRN Q4HRS PRN IV ANXIETY/AGITATION/ETOH WITHDRL Last administered on 07/07/18at 03:20; Start 07/02/18 at 15:30 Levetiracetam 750 mg/Dextrose 107.5 ml @ 420 mls/hr Q12HR IV Last administered on 07/03/18at 09:35; Start 07/02/18 at 16:30; Stop 07/03/18 at 14:17 ; Status DC Sodium Chloride (Normal Saline Flush 3ml) 3 ml QSHIFT PRN IV AFTER MEDS AND BLOOD DRAWS; Start 07/02/18 at 15:45 Sodium Chloride 1,000 ml @ 100 mls/hr Q10H IV Last administered on 07/02/18at 16:04; Start 07/02/18 at 16:30; Stop 07/04/18 at 16:37; Status DC Ondansetron HCl (Zofran) 4 mg PRN Q4HRS PRN IV NAUSEA/VOMITING; Start 07/02/18 at 15:45 Zolpidem Tartrate (Ambien) 5 mg PRN QHS PRN PO INSOMNIA; Start 07/02/18 at 15: 45 Acetaminophen (Tylenol) 650 mg PRN Q4HRS PRN PO TEMP OVER 100.4F OR MILD PAIN; Start 07/02/18 at 15:45 Al Hydroxide/Mg Hydroxide (Mylanta Plus Xs) 30 ml PRN DAILY PRN PO HEARTBURN / GAS; Start 07/02/18 at 15:45 Clonidine HCl (Catapres) 0.1 mg PRN Q6HRS PRN PO SBP>160 OR DBP>90; Start 07/02 at 15:45 Sodium Monofluorophosphate (Fleet Adult) 133 ml PRN DAILY PRN [place] CONSTIPATION; Start 07/02/18 at 15:45 Diphenhydramine HCl (Benadryl) 25 mg PRN Q4HRS PRN IVP ITCHING; Start 07/02/18 at 15:45 Docusate Sodium (Colace) 100 mg PRN BID PRN PO CONSTIPATION; Start 07/02/18 at 15:45 Albuterol Sulfate (Ventolin Neb Soln) 2.5 mg PRN Q4HRS PRN NEB SHORTNESS OF BREATH; Start 07/02/18 at 15:45 Guaifenesin (Robitussin) 200 mg PRN Q4HRS PRN PO COUGH; Start 07/02/18 at 15:45 Lorazepam (Ativan) 0.5 mg PRN Q4HRS PRN PO ANXIETY / AGITATION; Start 07/02/18 at 15:45 Enoxaparin Sodium (Lovenox 40mg Syringe) 40 mg DAILY SQ Last administered on 07/09/18at 08:02; Start 07/03/18 at 09:00 Hydralazine HCl (Apresoline Inj) 10 mg PRN Q4HRS PRN IVP ELEVATED BP, SEE COMMENTS Last administered on 07/04/18at 14:20; Start 07/02/18 at 16:45 Nitroglycerin (Nitro-Bid Oint) 0.5 inch Q6HRS TP Last administered on 07/09/18at 05:40; Start 07/02/18 at 17:30 Aspirin (Children'S Aspirin) 81 mg DAILY PO ; Start 07/03/18 at 09:00 Lorazepam (Ativan) 2 mg PRN Q4HRS PRN IV ALCOHOL WITHDRAWAL; Start 07/02/18 at 18:30; Status Cancel Cefepime HCl (Maxipime) 2 gm Q8HRS IVP Last administered on 07/04/18at 14:00; Start 07/03/18 at 14:30; Stop 07/04/18 at 18:56; Status DC Acyclovir Sodium 730 mg/Dextrose 264.6 ml @ 264.6 mls/ hr Q8HRS IV Last administered on 07/04/18at 05:07; Start 07/03/18 at 15:00; Stop 07/04/18 at 12:26 ; Status DC Vancomycin HCl (Vanco Per Pharmacy) 1 each PRN DAILY PRN MC SEE COMMENTS Last administered on 07/04/18at 12:31; Start 07/03/18 at 14:15; Stop 07/04/18 at 18:56 ; Status DC Ampicillin Sodium 2 gm/Sodium Chloride 100 ml @ 200 mls/hr Q4HRS IV Last administered on 07/04/18at 16:24; Start 07/03/18 at 16:00; Stop 07/04/18 at 18:56 ; Status DC Vancomycin HCl 1.5 gm/Sodium Chloride 500 ml @ 250 mls/hr 1X ONCE IV Last administered on 07/03/18at 17:54; Start 07/03/18 at 15:00; Stop 07/03/18 at 16:59 ; Status DC Levetiracetam 500 mg/Dextrose 105 ml @ 420 mls/hr Q12HR IV Last administered on 07/07/18at 09:55; Start 07/03/18 at 21:00; Stop 07/07/18 at 11:46; Status DC Divalproex Sodium (Depakote) 500 mg BID PO ; Start 07/03/18 at 21:00; Stop 07/04 at 16:20; Status DC Vancomycin HCl 1 gm/Sodium Chloride 250 ml @ 250 mls/hr Q12H IV Last administered on 07/04/18at 18:45; Start 07/04/18 at 06:00; Stop 07/04/18 at 18:58 ; Status DC Vancomycin HCl (Vancomycin Trough Level) 1 each 1X ONCE MC ; Start 07/05/18 at 05:30; Stop 07/05/18 at 05:31; Status Cancel Amino Acids/ Glycerin/ Electrolytes 1,000 ml @ 80 mls/hr [id number] IV Last administered on 07/09/18at 05:09; Start 07/03/18 at 19:15 Acyclovir Sodium 620 mg/Dextrose 262.4 ml @ 262.4 mls/ hr Q8HRS IV Last administered on 07/05/18at 05:05; Start 07/04/18 at 14:00; Stop 07/05/18 at 13:59 ; Status DC Lactobacillus Rhamnosus (Culturelle) 1 cap BID PO ; Start 07/04/18 at 21:00 Valproic Acid 500 mg/Dextrose 55 ml @ 55 mls/hr Q8HRS IV Last administered on at 05:38; Start 07/04/18 at 17:00 Acyclovir Sodium 620 mg/Dextrose 112.4 ml @ 112.4 mls/ hr Q8HRS IV Last administered on 07/06/18at 05:19; Start 07/05/18 at 14:00; Stop 07/06/18 at 13:52 ; Status DC Cefepime HCl (Maxipime) 1 gm Q8HRS IVP Last administered on 07/08/18at 05:47; Start 07/04/18 at 22:00; Stop 07/08/18 at 09:20; Status DC Iohexol (Omnipaque 350 Mg/ml) 75 ml 1X ONCE IV Last administered on 07/05/18at 11:45; Start 07/05/18 at 11:15; Stop 07/05/18 at 11:16; Status DC Info (CONTRAST GIVEN -- Rx MONITORING) 1 each PRN DAILY PRN MC SEE COMMENTS; Start 07/05/18 at 11:30; Stop 07/07/18 at 11:29; Status DC Carbamazepine (TEGretol) 200 mg BID PO ; Start 07/07/18 at 21:00 Ceftriaxone Sodium (Rocephin) 2 gm Q24H IVP Last administered on 07/09/18at 08:02 ; Start 07/08/18 at 10:00 Active Scripts Active Reported Zithromax (Azithromycin) 500 Mg Tablet 1 Tab PO DAILY Aspirin 81 Mg Tab.chew 81 Mg PO DAILY Hydrocodone-Apap 5-325 (Hydrocodone Bit/Acetaminophen) 1 Tab Tablet 1 Tab PO PRN Q6HRS PRN Vitals/I & O Vital Sign - Last 24 Hours 07/08/18 07/08/18 07/08/18 07/08/18 12:35 15:00 18:14 19:00 Temp 97.8 97.7 97.8 97.7 Pulse 81 64 64 68 Resp 16 18 B/P (MAP) 148/65 169/62 (97) 169/62 163/83 (109) Pulse Ox 96 100 O2 Delivery Room Air Room Air 07/08/18 07/08/18 07/08/18 07/09/18 20:15 20:15 22:38 00:06 Temp 98.0 98.0 Pulse 59 59 Resp 18 B/P (MAP) 164/69 (100) 164/69 Pulse Ox 100 O2 Delivery Room Air Room Air Room Air 07/09/18 07/09/18 07/09/18 07/09/18 03:00 05:40 07:00 08:00 Temp 98.0 98.1 98.0 98.1 Pulse 60 60 64 Resp 16 B/P (MAP) 152/67 (95) 152/67 156/70 (98) Pulse Ox 99 99 O2 Delivery Room Air Room Air Room Air 07/09/18 11:00 Temp 98.2 98.2 Pulse 65 Resp 16 B/P (MAP) 135/64 (87) Pulse Ox 100 O2 Delivery Room Air Intake and Output 07/08/18 07/08/18 07/09/18 15:00 23:00 07:00 Intake Total 0 ml 55 ml Balance 0 ml 55 ml MY OTT MD Jul 09, 2018 11:40
--- NOTE | 2018-07-09 11:51 | PDOC ---
Infectious Disease Note Subjective Subjective Mumbles but more alert No fevers last 24 hours Vital Sign Vital Signs Vital Signs Date Time Temp Pulse Resp B/P (MAP) Pulse Ox O2 Delivery O2 Flow Rate FiO2 07/09/18 11:00 98.2 65 16 135/64 (87) 100 Room Air 98.2 Physical Exam PHYSICAL EXAM GENERAL: Propped up in bed. Much more alert NAD HEENT: Pupils equally round, Oral mucosa dry, build up secretions, poor dentition NECK: Supple. LUNGS: Clear HEART: S1 and S2. ABDOMEN: Soft, no grimace or guarding to palpation, BS present EXTREMITIES: No edema and no cyanosis. SKIN: Warm and dry. No generalized rash. WEAVER NEEDLE LOOM: Easy to arouse, ? understanding of [place] PIV Labs Lab Laboratory Tests Test 07/09/18 03:50 07/09/18 03:55 07/09/18 10:50 White Blood Count 6.1 x10^3/uL (4.0-11.0) Red Blood Count 5.44 x10^6/uL (4.30-5.70) Hemoglobin 13.3 g/dL (13.0-17.5) Hematocrit 41.6 % (39.0-53.0) Mean Corpuscular Volume 76 fL (79-100) Mean Corpuscular Hemoglobin 25 pg (25-35) Mean Corpuscular Hemoglobin Concent 32 g/dL (31-37) Red Cell Distribution Width 14.7 % (11.5-14.5) Platelet Count 229 x10^3/uL (140-400) Neutrophils (%) (Auto) 50 % (31-73) Lymphocytes (%) (Auto) 14 % (24-48) Monocytes (%) (Auto) 12 % (0-9) Eosinophils (%) (Auto) 24 % (0-3) Basophils (%) (Auto) 0 % (0-3) Neutrophils # (Auto) 3.1 x10^3uL (1.8-7.7) Lymphocytes # (Auto) 0.8 x10^3/uL (1.0-4.8) Monocytes # (Auto) 0.7 x10^3/uL (0.0-1.1) Eosinophils # (Auto) 1.5 x10^3/uL (0.0-0.7) Basophils # (Auto) 0.0 x10^3/uL (0.0-0.2) Segmented Neutrophils % 53 % (35-66) Lymphocytes % 15 % (24-48) Monocytes % 9 % (0-10) Eosinophils % 23 % (0-5) Platelet Estimate Adequate (ADEQUATE) Sodium Level 138 mmol/L (136-145) Potassium Level 4.8 mmol/L (3.5-5.1) Chloride Level 103 mmol/L (98-107) Carbon Dioxide Level 25 mmol/L (21-32) Anion Gap 10 (6-14) Blood Urea Nitrogen 22 mg/dL (8-26) Creatinine 0.7 mg/dL (0.7-1.3) Estimated GFR (Cockcroft-Gault) 113.9 Glucose Level 97 mg/dL (70-99) Calcium Level 9.2 mg/dL (8.5-10.1) Urine Opiates Screen Neg (NEG) Urine Methadone Screen Neg (NEG) Urine Barbiturates Neg (NEG) Urine Phencyclidine Screen Neg (NEG) Urine Amphetamine/Methamphetamine Neg (NEG) Urine Benzodiazepines Screen Neg (NEG) Urine Cocaine Screen Neg (NEG) Urine Cannabinoids Screen Neg (NEG) Urine Ethyl Alcohol Neg (NEG) Micro Microbiology 07/02/18 Blood Culture - Final, Complete NO GROWTH AFTER 5 DAYS 07/05/18 CSF Gram Stain - Final, Complete Objective Assessment Neurosyphilis + VDRL. RPR 1:16. HIV - neg TB spot indeterminate Encephalopathy - more alert today ? if Cefepime was playing into it - Unable to obtain MRI as the patient has metallic fragments in the floor of the left maxillary sinus. -s/p LP: CSF WBC 0, glucose 61, T protein 61.1. VDRL pending -HSV PCR negative; HIV nonreactive Status epilepticus. on Keppra Hypertensive encephalopathy. History of incarceration more than 20 years ago. Diabetes. Peripheral vascular disease. Left nephrectomy. Aspiration Pneumonitis Smoking Plan Plan of Care Change to PCN 4 million q 4. ? if could take probenecid until more alert PICC line F/u BMP with h/o nephrectomy Off Acyclovir Will need repeat TB spot in a few month Pt unable to give details about Syphilis treatment, will need to complete treatment for possible neurosyphilis Maintain aspiration precaution. Neurology following Oral care D/w nursing/family D/w Pharmacy CHET AVENDANO MD Jul 09, 2018 11:51
[2018-07-09] MEDS: PENICILLIN K IV SCH ×3 (12:59→19:57)
[2018-07-09] MEDS: DEXTROSE 5% IV SCH ×3 (12:59→19:57)
[2018-07-09] MEDS ORDERED: BARIUM SULFATE 40% (APPLE) 148 GM PWD. PO ONE (13:00)
--- NOTE | 2018-07-09 14:00 | RAD ---
Video dysphasia study, 07/09/2018: History: Dysphasia Swallowing mechanism was examined fluoroscopically in the lateral projection while the patient ingested a variety of food materials mixed with barium. 3.3 minutes of fluoroscopy time was utilized. One video fluoroscopic loop was recorded by a member of the speech Department. When ingesting the thin liquids there was mild laryngeal penetration. This material eventually dribbled down to and below the level of the vocal cords. When the thicker materials including nectar consistency and honey thickened material were utilized the laryngeal penetration abated. There was a moderate amount of intermittent vallecular and pyriform sinus residue. When ingesting the barium coated solid, material accumulated in the vallecula without initiation of pharyngeal peristalsis. A subsequent swallow of liquid did clear the vallecula. IMPRESSION: Mild laryngeal penetration and aspiration of the thin liquids which abated when the thicker materials were utilized.
[2018-07-09 15:00] VITALS: BP 132/56
--- NOTE | 2018-07-09 15:39 | NUR ---
SW following pt. Pt now is on a pureed diet and honey thick liquids. RN reported Pt is still not to able ambulate and is too weak. PT/OT also pending. Pt might need usp IV abx as well. Pt's friends have visited today but had left when SW attempted to visit. SW will continue to follow.
--- NOTE | 2018-07-09 15:42 | EEG ---
DATE OF SERVICE: 07/09/2018 EEG NUMBER: [id number] OBJECTIVE: The patient is a 63-year-old male who presented last week with status epilepticus. EEG did show slowing of background activity, but no epileptic activity. The patient has continued to have altered mental status. DESCRIPTION: This is a digital study. Electrodes are placed according to the international 10-20 system. Bipolar and referential montages are available. Activation procedures typically include hyperventilation and intermittent photic stimulation. INTERPRETATION: The waking background consists of 7-8 Hz, 50-100 microvolt activity, symmetrically distributed over parietooccipital regions and reactive to eye opening. Hyperventilation and intermittent photic stimulation are noncontributory. Stage 1 sleep is achieved with normal electroencephalogram patterns. All computer generated spike and windows server support technician-identified spikes are considered artifactual. IMPRESSION: This electroencephalogram with the patient awake and asleep is abnormal because of a mild, diffuse disturbance of background activity consistent with any of variety of toxic or metabolic encephalopathies. There is no focal, paroxysmal, or epileptiform activity. Thank you for letting us help with the patient's care. MY OTT MD DR: RICKY/murali JOB#: [id number] / [id number]
[2018-07-09 19:00] VITALS: BP 144/72
--- NOTE | 2018-07-09 21:45 | RAD ---
Indication:PICC LINE PLACEMENT TECHNIQUE:Portable AP chest X-ray COMPARISON:07/05/2018 FINDINGS: Right-sided PICC line is seen with its tip in the SVC. Heart is normal in size. Diffuse bilateral interstitial opacities are seen. No focal consolidation. No pneumothorax or pleural effusion. Visualized bony thorax within normal limits. IMPRESSION: Appropriately positioned PICC line. Bilateral interstitial opacities may be secondary to atypical/viral infection. Electronically signed by: Janes Hopkins DO (07/09/2018 9:42 PM) [facility]
[2018-07-09 23:00] VITALS: BP 179/68
[2018-07-10] MEDS: PENICILLIN K IV SCH ×6 (00:44→19:52)
[2018-07-10] MEDS: DEXTROSE 5% IV SCH ×6 (00:44→19:52)
[2018-07-10] MEDS: NITROGLYCERIN OINT 1 GM PACKET. TP SCH ×4 (00:45→17:23)
[2018-07-10] MEDS: AMINO AC 3%/ELECTROLYTE/GLYCER 1,000 ML IV SCH ×2 (02:00→14:16)
[2018-07-10 03:00] VITALS: BP 140/70
[2018-07-10 05:51] LABS: BASO % 0 % (0-3); EOS # 1.5 x10^3/uL (0.0-0.7); EOS % 28 % (0-3); HEMATOCRIT 38.4 % (39.0-53.0); HEMOGLOBIN 12.5 g/dL (13.0-17.5); LYMPH # 1.1 x10^3/uL (1.0-4.8); LYMPH % 20 % (24-48); MEAN CORPUSCULAR HEMOGLOBIN 25 pg (25-35); MEAN CORPUSCULAR HGB CONC 33 g/dL (31-37); MEAN CORPUSCULAR VOLUME 77 fL (79-100); MONO # 0.5 x10^3/uL (0.0-1.1); MONO % 9 % (0-9); NEUT # 2.3 x10^3uL (1.8-7.7); NEUT % 43 % (31-73); PLATELET COUNT 212 x10^3/uL (140-400); RED BLOOD COUNT 5.01 x10^6/uL (4.30-5.70); RED CELL DISTRIBUTION WIDTH 14.3 % (11.5-14.5); WHITE BLOOD COUNT 5.3 x10^3/uL (4.0-11.0)
[2018-07-10] MEDS: VALPROIC ACID (AS SODIUM SALT) 500 MG in IV DEXTROSE 5% 50 ML IV SCH (06:05)
[2018-07-10 07:00] VITALS: BP 120/47
[2018-07-10 07:01] LABS: CALCIUM 8.6 mg/dL (8.5-10.1); CREATININE 0.6 mg/dL (0.7-1.3); GFR 136.1
[2018-07-10] MEDS: LACTOBACILLUS RHAMNOSUS GG 1 CAPSULE. PO SCH ×2 (08:36→22:17)
[2018-07-10] MEDS: ASPIRIN CHEWABLE 81 MG TABLET. PO SCH (08:36)
[2018-07-10] MEDS: ENOXAPARIN 40 MG/0.4 ML SYRINGE. SQ SCH (08:36)
[2018-07-10] MEDS: carBAMazepine 200 MG TABLET PO SCH ×2 (08:36→22:17)
--- NOTE | 2018-07-10 10:15 | NUR ---
Patient offered breakfast this morning with assistance from the aid in feeding. Patient took the spoon from the aid and threw it across the room. Tray was left with patient with bed at 90 degrees for patient to eat if he wanted. This advertising writer gave the patient his medications PO with honey thickened juice and after taking the medications, the patient shoved the bed table away. Patient may have eaten a total of 6 bites of food this am.
--- NOTE | 2018-07-10 10:59 | PDOC ---
PROGRESS NOTES Chief Complaint Chief Complaint 1. Encephalopathy, likely metabolic though pt is not able to give any history, no family at bedside. Unable to obtain MRI as the patient has metallic fragments in the floor of the left maxillary sinus. 2. Status epilepticus 3. 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 4. Hypertensive encephalopathy 5. Disorientation, Confusion 6. TPPA positive,syphilis unknown status, RPR still pending, HIV negative, Acute hepatitis panel neg 7. History of incarceration more than 20 years ago. 8. Diabetes. 9. Peripheral vascular disease. 10. Smoking. 11. Left nephrectomy. 12. Peripheral arterial disease. 13. Gastroesophageal reflux disease. 14. Aspiration Pneumonitis 15. Tremors (?), etiology could be from noninfectious etiology History of Present Illness History of Present Illness Pt. seen and examined this morning, pt awake moving extremities and mumbling to questioning Neurosyphilis, on abx Hard to understand - Mongolian speaking Vitals Vitals Vital Signs Date Time Temp Pulse Resp B/P (MAP) Pulse Ox O2 Delivery O2 Flow Rate FiO2 07/10/18 08:00 Room Air 07/10/18 07:00 96.7 58 16 120/47 (71) 99 96.7 Physical Exam General: Alert, No acute distress, Other (unable to communicate needs) Heart: Regular rate, Normal S1, Normal S2, No murmurs Lungs: Clear, Other (airway patent, normal respiratory effort) Abdomen: Normal bowel sounds, Soft, No tenderness, No hepatosplenomegaly, No masses Extremities: No clubbing, No cyanosis, No edema, Other (Strong peripheral pulses 3+) Skin: No rashes, No breakdown, No significant lesion Labs LABS Laboratory Tests Test 07/09/18 10:50 07/10/18 05:30 07/10/18 06:30 Urine Opiates Screen Neg (NEG) Urine Methadone Screen Neg (NEG) Urine Barbiturates Neg (NEG) Urine Phencyclidine Screen Neg (NEG) Urine Amphetamine/Methamphetamine Neg (NEG) Urine Benzodiazepines Screen Neg (NEG) Urine Cocaine Screen Neg (NEG) Urine Cannabinoids Screen Neg (NEG) Urine Ethyl Alcohol Neg (NEG) White Blood Count 5.3 x10^3/uL (4.0-11.0) Red Blood Count 5.01 x10^6/uL (4.30-5.70) Hemoglobin 12.5 g/dL (13.0-17.5) Hematocrit 38.4 % (39.0-53.0) Mean Corpuscular Volume 77 fL (79-100) Mean Corpuscular Hemoglobin 25 pg (25-35) Mean Corpuscular Hemoglobin Concent 33 g/dL (31-37) Red Cell Distribution Width 14.3 % (11.5-14.5) Platelet Count 212 x10^3/uL (140-400) Neutrophils (%) (Auto) 43 % (31-73) Lymphocytes (%) (Auto) 20 % (24-48) Monocytes (%) (Auto) 9 % (0-9) Eosinophils (%) (Auto) 28 % (0-3) Basophils (%) (Auto) 0 % (0-3) Neutrophils # (Auto) 2.3 x10^3uL (1.8-7.7) Lymphocytes # (Auto) 1.1 x10^3/uL (1.0-4.8) Monocytes # (Auto) 0.5 x10^3/uL (0.0-1.1) Eosinophils # (Auto) 1.5 x10^3/uL (0.0-0.7) Basophils # (Auto) 0.0 x10^3/uL (0.0-0.2) Sodium Level 139 mmol/L (136-145) Potassium Level 5.0 mmol/L (3.5-5.1) Chloride Level 103 mmol/L (98-107) Carbon Dioxide Level 27 mmol/L (21-32) Anion Gap 9 (6-14) Blood Urea Nitrogen 20 mg/dL (8-26) Creatinine 0.6 mg/dL (0.7-1.3) Estimated GFR (Cockcroft-Gault) 136.1 Glucose Level 106 mg/dL (70-99) Calcium Level 8.6 mg/dL (8.5-10.1) Review of Systems Review of Systems unable to obtain Assessment and Plan Assessmemt and Plan Assessment: Complex focal seizure w status epilepticus 07/02/16 Metabolic encephalopathy Neurosyphilis + VDRL. RPR 1:16. HIV - neg Hypertensive encephalopathy Hx of Hypertensive emergency, BP 214/112 mmHg. Disorientation Confusion Abnormal chorea like movements in left UE. HTN, poorly controlled. DM. PVD. Tobacco abuse Treponema Pallidum Ab positive Plan: No acute changes on repeat CT, UDS (-) 4 million g's PCN q4, appreciate ID recommendations PPN for nutrition needs, Considering Dobbhoff Failed Video Swallow study, Dysphagia I diet Recheck labs in AM Home Meds Valproic acid @ 55mls/hr, appreciate Neurology input Aspiration precautions PT/OT/[employer] orders Problems Medical Problems: (1) Elevated troponin Status: Acute (2) Tremor Status: Acute Comment Review of Relevant I have reviewed the following items kendrick (where applicable) has been applied. Labs Laboratory Tests Test 07/09/18 03:50 07/09/18 03:55 07/09/18 10:50 07/10/18 05:30 White Blood Count 6.1 x10^3/uL (4.0-11.0) 5.3 x10^3/uL (4.0-11.0) Red Blood Count 5.44 x10^6/uL (4.30-5.70) 5.01 x10^6/uL (4.30-5.70) Hemoglobin 13.3 g/dL (13.0-17.5) 12.5 g/dL (13.0-17.5) Hematocrit 41.6 % (39.0-53.0) 38.4 % (39.0-53.0) Mean Corpuscular Volume 76 fL (79-100) 77 fL (79-100) Mean Corpuscular Hemoglobin 25 pg (25-35) 25 pg (25-35) Mean Corpuscular Hemoglobin Concent 32 g/dL (31-37) 33 g/dL (31-37) Red Cell Distribution Width 14.7 % (11.5-14.5) 14.3 % (11.5-14.5) Platelet Count 229 x10^3/uL (140-400) 212 x10^3/uL (140-400) Neutrophils (%) (Auto) 50 % (31-73) 43 % (31-73) Lymphocytes (%) (Auto) 14 % (24-48) 20 % (24-48) Monocytes (%) (Auto) 12 % (0-9) 9 % (0-9) Eosinophils (%) (Auto) 24 % (0-3) 28 % (0-3) Basophils (%) (Auto) 0 % (0-3) 0 % (0-3) Neutrophils # (Auto) 3.1 x10^3uL (1.8-7.7) 2.3 x10^3uL (1.8-7.7) Lymphocytes # (Auto) 0.8 x10^3/uL (1.0-4.8) 1.1 x10^3/uL (1.0-4.8) Monocytes # (Auto) 0.7 x10^3/uL (0.0-1.1) 0.5 x10^3/uL (0.0-1.1) Eosinophils # (Auto) 1.5 x10^3/uL (0.0-0.7) 1.5 x10^3/uL (0.0-0.7) Basophils # (Auto) 0.0 x10^3/uL (0.0-0.2) 0.0 x10^3/uL (0.0-0.2) Segmented Neutrophils % 53 % (35-66) Lymphocytes % 15 % (24-48) Monocytes % 9 % (0-10) Eosinophils % 23 % (0-5) Platelet Estimate Adequate (ADEQUATE) Sodium Level 138 mmol/L (136-145) Potassium Level 4.8 mmol/L (3.5-5.1) Chloride Level 103 mmol/L (98-107) Carbon Dioxide Level 25 mmol/L (21-32) Anion Gap 10 (6-14) Blood Urea Nitrogen 22 mg/dL (8-26) Creatinine 0.7 mg/dL (0.7-1.3) Estimated GFR (Cockcroft-Gault) 113.9 Glucose Level 97 mg/dL (70-99) Calcium Level 9.2 mg/dL (8.5-10.1) Urine Opiates Screen Neg (NEG) Urine Methadone Screen Neg (NEG) Urine Barbiturates Neg (NEG) Urine Phencyclidine Screen Neg (NEG) Urine Amphetamine/Methamphetamine Neg (NEG) Urine Benzodiazepines Screen Neg (NEG) Urine Cocaine Screen Neg (NEG) Urine Cannabinoids Screen Neg (NEG) Urine Ethyl Alcohol Neg (NEG) Test 07/10/18 06:30 Sodium Level 139 mmol/L (136-145) Potassium Level 5.0 mmol/L (3.5-5.1) Chloride Level 103 mmol/L (98-107) Carbon Dioxide Level 27 mmol/L (21-32) Anion Gap 9 (6-14) Blood Urea Nitrogen 20 mg/dL (8-26) Creatinine 0.6 mg/dL (0.7-1.3) Estimated GFR (Cockcroft-Gault) 136.1 Glucose Level 106 mg/dL (70-99) Calcium Level 8.6 mg/dL (8.5-10.1) Laboratory Tests Test 07/09/18 10:50 07/10/18 05:30 07/10/18 06:30 Urine Opiates Screen Neg (NEG) Urine Methadone Screen Neg (NEG) Urine Barbiturates Neg (NEG) Urine Phencyclidine Screen Neg (NEG) Urine Amphetamine/Methamphetamine Neg (NEG) Urine Benzodiazepines Screen Neg (NEG) Urine Cocaine Screen Neg (NEG) Urine Cannabinoids Screen Neg (NEG) Urine Ethyl Alcohol Neg (NEG) White Blood Count 5.3 x10^3/uL (4.0-11.0) Red Blood Count 5.01 x10^6/uL (4.30-5.70) Hemoglobin 12.5 g/dL (13.0-17.5) Hematocrit 38.4 % (39.0-53.0) Mean Corpuscular Volume 77 fL (79-100) Mean Corpuscular Hemoglobin 25 pg (25-35) Mean Corpuscular Hemoglobin Concent 33 g/dL (31-37) Red Cell Distribution Width 14.3 % (11.5-14.5) Platelet Count 212 x10^3/uL (140-400) Neutrophils (%) (Auto) 43 % (31-73) Lymphocytes (%) (Auto) 20 % (24-48) Monocytes (%) (Auto) 9 % (0-9) Eosinophils (%) (Auto) 28 % (0-3) Basophils (%) (Auto) 0 % (0-3) Neutrophils # (Auto) 2.3 x10^3uL (1.8-7.7) Lymphocytes # (Auto) 1.1 x10^3/uL (1.0-4.8) Monocytes # (Auto) 0.5 x10^3/uL (0.0-1.1) Eosinophils # (Auto) 1.5 x10^3/uL (0.0-0.7) Basophils # (Auto) 0.0 x10^3/uL (0.0-0.2) Sodium Level 139 mmol/L (136-145) Potassium Level 5.0 mmol/L (3.5-5.1) Chloride Level 103 mmol/L (98-107) Carbon Dioxide Level 27 mmol/L (21-32) Anion Gap 9 (6-14) Blood Urea Nitrogen 20 mg/dL (8-26) Creatinine 0.6 mg/dL (0.7-1.3) Estimated GFR (Cockcroft-Gault) 136.1 Glucose Level 106 mg/dL (70-99) Calcium Level 8.6 mg/dL (8.5-10.1) Microbiology 07/02/18 Blood Culture - Final, Complete NO GROWTH AFTER 5 DAYS 07/05/18 CSF Gram Stain - Final, Complete Medications Current Medications Sodium Chloride 1,000 ml @ 1,000 mls/hr 1X ONCE IV Last administered on at 10:00; Start 07/02/18 at 10:00; Stop 07/02/18 at 10:59; Status DC Lorazepam (Ativan) 0.5 mg 1X ONCE IV Last administered on 07/02/18at 12:12; Start 07/02/18 at 12:30; Stop 07/02/18 at 12:31; Status DC Aspirin (Children'S Aspirin) 324 mg 1X ONCE PO Last administered on 07/02/18at 13:18; Start 07/02/18 at 13:30; Stop 07/02/18 at 13:31; Status DC Acetaminophen (Tylenol) 650 mg PRN Q4HRS PRN PO FEVER; Start 07/02/18 at 14:30 ; Stop 07/02/18 at 18:38; Status DC Lorazepam (Ativan) 2 mg PRN Q4HRS PRN IV ANXIETY/AGITATION/ETOH WITHDRL Last administered on 07/07/18at 03:20; Start 07/02/18 at 15:30 Levetiracetam 750 mg/Dextrose 107.5 ml @ 420 mls/hr Q12HR IV Last administered on 07/03/18at 09:35; Start 07/02/18 at 16:30; Stop 07/03/18 at 14:17 ; Status DC Sodium Chloride (Normal Saline Flush 3ml) 3 ml QSHIFT PRN IV AFTER MEDS AND BLOOD DRAWS; Start 07/02/18 at 15:45 Sodium Chloride 1,000 ml @ 100 mls/hr Q10H IV Last administered on 07/02/18at 16:04; Start 07/02/18 at 16:30; Stop 07/04/18 at 16:37; Status DC Ondansetron HCl (Zofran) 4 mg PRN Q4HRS PRN IV NAUSEA/VOMITING; Start 07/02/18 at 15:45 Zolpidem Tartrate (Ambien) 5 mg PRN QHS PRN PO INSOMNIA; Start 07/02/18 at 15: 45 Acetaminophen (Tylenol) 650 mg PRN Q4HRS PRN PO TEMP OVER 100.4F OR MILD PAIN; Start 07/02/18 at 15:45 Al Hydroxide/Mg Hydroxide (Mylanta Plus Xs) 30 ml PRN DAILY PRN PO HEARTBURN / GAS; Start 07/02/18 at 15:45 Clonidine HCl (Catapres) 0.1 mg PRN Q6HRS PRN PO SBP>160 OR DBP>90; Start 07/02 at 15:45 Sodium Monofluorophosphate (Fleet Adult) 133 ml PRN DAILY PRN [place] CONSTIPATION; Start 07/02/18 at 15:45 Diphenhydramine HCl (Benadryl) 25 mg PRN Q4HRS PRN IVP ITCHING; Start 07/02/18 at 15:45 Docusate Sodium (Colace) 100 mg PRN BID PRN PO CONSTIPATION; Start 07/02/18 at 15:45 Albuterol Sulfate (Ventolin Neb Soln) 2.5 mg PRN Q4HRS PRN NEB SHORTNESS OF BREATH; Start 07/02/18 at 15:45 Guaifenesin (Robitussin) 200 mg PRN Q4HRS PRN PO COUGH; Start 07/02/18 at 15:45 Lorazepam (Ativan) 0.5 mg PRN Q4HRS PRN PO ANXIETY / AGITATION; Start 07/02/18 at 15:45 Enoxaparin Sodium (Lovenox 40mg Syringe) 40 mg DAILY SQ Last administered on 07/10/18at 08:36; Start 07/03/18 at 09:00 Hydralazine HCl (Apresoline Inj) 10 mg PRN Q4HRS PRN IVP ELEVATED BP, SEE COMMENTS Last administered on 07/04/18at 14:20; Start 07/02/18 at 16:45 Nitroglycerin (Nitro-Bid Oint) 0.5 inch Q6HRS TP Last administered on 07/10/18 06:06; Start 07/02/18 at 17:30 Aspirin (Children'S Aspirin) 81 mg DAILY PO Last administered on 07/10/18at 08:36 ; Start 07/03/18 at 09:00 Lorazepam (Ativan) 2 mg PRN Q4HRS PRN IV ALCOHOL WITHDRAWAL; Start 07/02/18 at 18:30; Status Cancel Cefepime HCl (Maxipime) 2 gm Q8HRS IVP Last administered on 07/04/18 14:00; Start 07/03/18 at 14:30; Stop 07/04/18 at 18:56; Status DC Acyclovir Sodium 730 mg/Dextrose 264.6 ml @ 264.6 mls/ hr Q8HRS IV Last administered on 07/04/18at 05:07; Start 07/03/18 at 15:00; Stop 07/04/18 at 12:26 ; Status DC Vancomycin HCl (Vanco Per Pharmacy) 1 each PRN DAILY PRN MC SEE COMMENTS Last administered on 07/04/18at 12:31; Start 07/03/18 at 14:15; Stop 07/04/18 at 18:56 ; Status DC Ampicillin Sodium 2 gm/Sodium Chloride 100 ml @ 200 mls/hr Q4HRS IV Last administered on 07/04/18at 16:24; Start 07/03/18 at 16:00; Stop 07/04/18 at 18:56 ; Status DC Vancomycin HCl 1.5 gm/Sodium Chloride 500 ml @ 250 mls/hr 1X ONCE IV Last administered on 07/03/18at 17:54; Start 07/03/18 at 15:00; Stop 07/03/18 at 16:59 ; Status DC Levetiracetam 500 mg/Dextrose 105 ml @ 420 mls/hr Q12HR IV Last administered on 07/07/18at 09:55; Start 07/03/18 at 21:00; Stop 07/07/18 at 11:46; Status DC Divalproex Sodium (Depakote) 500 mg BID PO ; Start 07/03/18 at 21:00; Stop 07/04 at 16:20; Status DC Vancomycin HCl 1 gm/Sodium Chloride 250 ml @ 250 mls/hr Q12H IV Last administered on 07/04/18at 18:45; Start 07/04/18 at 06:00; Stop 07/04/18 at 18:58 ; Status DC Vancomycin HCl (Vancomycin Trough Level) 1 each 1X ONCE MC ; Start 07/05/18 at 05:30; Stop 07/05/18 at 05:31; Status Cancel Amino Acids/ Glycerin/ Electrolytes 1,000 ml @ 80 mls/hr [id number] IV Last administered on 07/10/18at 02:00; Start 07/03/18 at 19:15 Acyclovir Sodium 620 mg/Dextrose 262.4 ml @ 262.4 mls/ hr Q8HRS IV Last administered on 07/05/18at 05:05; Start 07/04/18 at 14:00; Stop 07/05/18 at 13:59 ; Status DC Lactobacillus Rhamnosus (Culturelle) 1 cap BID PO Last administered on at 08:36; Start 07/04/18 at 21:00 Valproic Acid 500 mg/Dextrose 55 ml @ 55 mls/hr Q8HRS IV Last administered on at 06:05; Start 07/04/18 at 17:00 Acyclovir Sodium 620 mg/Dextrose 112.4 ml @ 112.4 mls/ hr Q8HRS IV Last administered on 07/06/18at 05:19; Start 07/05/18 at 14:00; Stop 07/06/18 at 13:52 ; Status DC Cefepime HCl (Maxipime) 1 gm Q8HRS IVP Last administered on 07/08/18at 05:47; Start 07/04/18 at 22:00; Stop 07/08/18 at 09:20; Status DC Iohexol (Omnipaque 350 Mg/ml) 75 ml 1X ONCE IV Last administered on 07/05/18at 11:45; Start 07/05/18 at 11:15; Stop 07/05/18 at 11:16; Status DC Info (CONTRAST GIVEN -- Rx MONITORING) 1 each PRN DAILY PRN MC SEE COMMENTS; Start 07/05/18 at 11:30; Stop 07/07/18 at 11:29; Status DC Carbamazepine (TEGretol) 200 mg BID PO Last administered on 07/10/18at 08:36; Start 07/07/18 at 21:00 Ceftriaxone Sodium (Rocephin) 2 gm Q24H IVP Last administered on 07/09/18at 08:02 ; Start 07/08/18 at 10:00; Stop 07/09/18 at 11:51; Status DC Penicillin G Potassium [id number] unit/Dextrose 100 ml @ 100 mls/hr Q4HRS IV Last administered on 07/10/18at 08:36; Start 07/09/18 at 12:00 Barium Sulfate (Varibar Thin Liquid Apple) 148 gm 1X ONCE PO Last administered on 07/09/18at 13:53; Start 07/09/18 at 13:00; Stop 07/09/18 at 13:01; Status DC Active Scripts Active Reported Zithromax (Azithromycin) 500 Mg Tablet 1 Tab PO DAILY Aspirin 81 Mg Tab.chew 81 Mg PO DAILY Hydrocodone-Apap 5-325 (Hydrocodone Bit/Acetaminophen) 1 Tab Tablet 1 Tab PO PRN Q6HRS PRN Vitals/I & O Vital Sign - Last 24 Hours 07/09/18 07/09/18 07/09/18 07/09/18 11:00 12:58 15:00 18:20 Temp 98.2 98.0 98.2 98.0 Pulse 65 65 68 68 Resp 16 18 B/P (MAP) 135/64 (87) 135/64 132/56 (81) 132/56 Pulse Ox 100 100 O2 Delivery Room Air Room Air 07/09/18 07/09/18 07/09/18 07/10/18 19:00 20:15 23:00 00:45 Temp 98.0 97.7 98.0 97.7 Pulse 63 56 63 Resp 18 18 B/P (MAP) 144/72 (96) 179/68 (105) 144/72 Pulse Ox 100 97 O2 Delivery Room Air Room Air Room Air 07/10/18 07/10/18 07/10/18 07/10/18 03:00 06:06 07:00 08:00 Temp 97.6 96.7 97.6 96.7 Pulse 61 61 58 Resp 18 16 B/P (MAP) 140/70 (93) 140/70 120/47 (71) Pulse Ox 96 99 O2 Delivery Room Air Room Air Room Air Intake and Output 07/09/18 07/09/18 07/10/18 14:59 22:59 06:59 Intake Total 0 ml Balance 0 ml Nutrition Consultation Dietary Evaluation: Recommendations by RD: PPN/TPN Comments: Continue PPN for short-term nutrition needs If unable to advance diet per [employer] recommend consideration of dobhoff placement for TF to better meet nutrition needs Expected Outcomes/Goals: Diet advancement Interpretation of weight loss: >7.5% in 3 months Malnutrition Findings: Weight Status: Appropriate RICK MOREJON III DO Jul 10, 2018 10:59
[2018-07-10 11:00] VITALS: BP 107/52
--- NOTE | 2018-07-10 12:10 | PDOC ---
PROGRESS NOTES Assessment Problems Medical Problems: (1) Elevated troponin Status: Acute (2) Tremor Status: Acute Status epilepticus, controlled on 07/02/18. Complex focal seizure Repeat electroencephalogram negative for seizure activity Metabolic encephalopathy. Hypertensive encephalopathy. Hypertensive emergency, BP 214/112 mmHg. Abnormal chorea like movements in left UE, chronic, none observed today. Treponema Pallidum Ab positive. 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 Note negative urine drug screen Plan Switch Depakote 500 to Tegretol 200 mg bid, shouldn't need depakote taper given short term use Discontinued Keppra, sleepiness. No brain MRI due to metallic objects at the floor of the left maxillary sinus. Treat medical diseases. Consulted ID. BP control. Speech therapy following Will need long-term placement. Subjective Denies pain Objective Vital Signs Date Time Temp Pulse Resp B/P (MAP) Pulse Ox O2 Delivery O2 Flow Rate FiO2 07/10/18 11:33 51 107/52 07/10/18 11:00 97.6 18 98 Room Air 97.6 Intake and Output 07/10/18 07:00 Intake Total 0 ml Balance 0 ml Intake Oral 0 ml # Voids 5 PHYSICAL EXAM Alert, knows that he is in the hospital, does not know date, does follow some commands, refusing to eat his breakfast PERRL. EOMI. CN: no focal findings. Muscle tone: normal. Muscle strength: 4/5 DTR: 2+ Plantar reflex: flexor Gait: not examined in bed. Sensory exam: no abnormal findings. No cerebellar signs elicited. No seizure activity observed Review of Relevant I have reviewed the following items kendrick (where applicable) has been applied. Labs Laboratory Tests Test 07/09/18 03:50 07/09/18 03:55 07/09/18 10:50 07/10/18 05:30 White Blood Count 6.1 x10^3/uL (4.0-11.0) 5.3 x10^3/uL (4.0-11.0) Red Blood Count 5.44 x10^6/uL (4.30-5.70) 5.01 x10^6/uL (4.30-5.70) Hemoglobin 13.3 g/dL (13.0-17.5) 12.5 g/dL (13.0-17.5) Hematocrit 41.6 % (39.0-53.0) 38.4 % (39.0-53.0) Mean Corpuscular Volume 76 fL (79-100) 77 fL (79-100) Mean Corpuscular Hemoglobin 25 pg (25-35) 25 pg (25-35) Mean Corpuscular Hemoglobin Concent 32 g/dL (31-37) 33 g/dL (31-37) Red Cell Distribution Width 14.7 % (11.5-14.5) 14.3 % (11.5-14.5) Platelet Count 229 x10^3/uL (140-400) 212 x10^3/uL (140-400) Neutrophils (%) (Auto) 50 % (31-73) 43 % (31-73) Lymphocytes (%) (Auto) 14 % (24-48) 20 % (24-48) Monocytes (%) (Auto) 12 % (0-9) 9 % (0-9) Eosinophils (%) (Auto) 24 % (0-3) 28 % (0-3) Basophils (%) (Auto) 0 % (0-3) 0 % (0-3) Neutrophils # (Auto) 3.1 x10^3uL (1.8-7.7) 2.3 x10^3uL (1.8-7.7) Lymphocytes # (Auto) 0.8 x10^3/uL (1.0-4.8) 1.1 x10^3/uL (1.0-4.8) Monocytes # (Auto) 0.7 x10^3/uL (0.0-1.1) 0.5 x10^3/uL (0.0-1.1) Eosinophils # (Auto) 1.5 x10^3/uL (0.0-0.7) 1.5 x10^3/uL (0.0-0.7) Basophils # (Auto) 0.0 x10^3/uL (0.0-0.2) 0.0 x10^3/uL (0.0-0.2) Segmented Neutrophils % 53 % (35-66) Lymphocytes % 15 % (24-48) Monocytes % 9 % (0-10) Eosinophils % 23 % (0-5) Platelet Estimate Adequate (ADEQUATE) Sodium Level 138 mmol/L (136-145) Potassium Level 4.8 mmol/L (3.5-5.1) Chloride Level 103 mmol/L (98-107) Carbon Dioxide Level 25 mmol/L (21-32) Anion Gap 10 (6-14) Blood Urea Nitrogen 22 mg/dL (8-26) Creatinine 0.7 mg/dL (0.7-1.3) Estimated GFR (Cockcroft-Gault) 113.9 Glucose Level 97 mg/dL (70-99) Calcium Level 9.2 mg/dL (8.5-10.1) Urine Opiates Screen Neg (NEG) Urine Methadone Screen Neg (NEG) Urine Barbiturates Neg (NEG) Urine Phencyclidine Screen Neg (NEG) Urine Amphetamine/Methamphetamine Neg (NEG) Urine Benzodiazepines Screen Neg (NEG) Urine Cocaine Screen Neg (NEG) Urine Cannabinoids Screen Neg (NEG) Urine Ethyl Alcohol Neg (NEG) Test 07/10/18 06:30 Sodium Level 139 mmol/L (136-145) Potassium Level 5.0 mmol/L (3.5-5.1) Chloride Level 103 mmol/L (98-107) Carbon Dioxide Level 27 mmol/L (21-32) Anion Gap 9 (6-14) Blood Urea Nitrogen 20 mg/dL (8-26) Creatinine 0.6 mg/dL (0.7-1.3) Estimated GFR (Cockcroft-Gault) 136.1 Glucose Level 106 mg/dL (70-99) Calcium Level 8.6 mg/dL (8.5-10.1) Laboratory Tests Test 07/10/18 05:30 07/10/18 06:30 White Blood Count 5.3 x10^3/uL (4.0-11.0) Red Blood Count 5.01 x10^6/uL (4.30-5.70) Hemoglobin 12.5 g/dL (13.0-17.5) Hematocrit 38.4 % (39.0-53.0) Mean Corpuscular Volume 77 fL (79-100) Mean Corpuscular Hemoglobin 25 pg (25-35) Mean Corpuscular Hemoglobin Concent 33 g/dL (31-37) Red Cell Distribution Width 14.3 % (11.5-14.5) Platelet Count 212 x10^3/uL (140-400) Neutrophils (%) (Auto) 43 % (31-73) Lymphocytes (%) (Auto) 20 % (24-48) Monocytes (%) (Auto) 9 % (0-9) Eosinophils (%) (Auto) 28 % (0-3) Basophils (%) (Auto) 0 % (0-3) Neutrophils # (Auto) 2.3 x10^3uL (1.8-7.7) Lymphocytes # (Auto) 1.1 x10^3/uL (1.0-4.8) Monocytes # (Auto) 0.5 x10^3/uL (0.0-1.1) Eosinophils # (Auto) 1.5 x10^3/uL (0.0-0.7) Basophils # (Auto) 0.0 x10^3/uL (0.0-0.2) Sodium Level 139 mmol/L (136-145) Potassium Level 5.0 mmol/L (3.5-5.1) Chloride Level 103 mmol/L (98-107) Carbon Dioxide Level 27 mmol/L (21-32) Anion Gap 9 (6-14) Blood Urea Nitrogen 20 mg/dL (8-26) Creatinine 0.6 mg/dL (0.7-1.3) Estimated GFR (Cockcroft-Gault) 136.1 Glucose Level 106 mg/dL (70-99) Calcium Level 8.6 mg/dL (8.5-10.1) Microbiology 07/02/18 Blood Culture - Final, Complete NO GROWTH AFTER 5 DAYS 07/05/18 CSF Gram Stain - Final, Complete Medications Current Medications Sodium Chloride 1,000 ml @ 1,000 mls/hr 1X ONCE IV Last administered on at 10:00; Start 07/02/18 at 10:00; Stop 07/02/18 at 10:59; Status DC Lorazepam (Ativan) 0.5 mg 1X ONCE IV Last administered on 07/02/18at 12:12; Start 07/02/18 at 12:30; Stop 07/02/18 at 12:31; Status DC Aspirin (Children'S Aspirin) 324 mg 1X ONCE PO Last administered on 07/02/18at 13:18; Start 07/02/18 at 13:30; Stop 07/02/18 at 13:31; Status DC Acetaminophen (Tylenol) 650 mg PRN Q4HRS PRN PO FEVER; Start 07/02/18 at 14:30 ; Stop 07/02/18 at 18:38; Status DC Lorazepam (Ativan) 2 mg PRN Q4HRS PRN IV ANXIETY/AGITATION/ETOH WITHDRL Last administered on 07/07/18at 03:20; Start 07/02/18 at 15:30 Levetiracetam 750 mg/Dextrose 107.5 ml @ 420 mls/hr Q12HR IV Last administered on 07/03/18at 09:35; Start 07/02/18 at 16:30; Stop 07/03/18 at 14:17 ; Status DC Sodium Chloride (Normal Saline Flush 3ml) 3 ml QSHIFT PRN IV AFTER MEDS AND BLOOD DRAWS; Start 07/02/18 at 15:45 Sodium Chloride 1,000 ml @ 100 mls/hr Q10H IV Last administered on 07/02/18at 16:04; Start 07/02/18 at 16:30; Stop 07/04/18 at 16:37; Status DC Ondansetron HCl (Zofran) 4 mg PRN Q4HRS PRN IV NAUSEA/VOMITING; Start 07/02/18 at 15:45 Zolpidem Tartrate (Ambien) 5 mg PRN QHS PRN PO INSOMNIA; Start 07/02/18 at 15: 45 Acetaminophen (Tylenol) 650 mg PRN Q4HRS PRN PO TEMP OVER 100.4F OR MILD PAIN; Start 07/02/18 at 15:45 Al Hydroxide/Mg Hydroxide (Mylanta Plus Xs) 30 ml PRN DAILY PRN PO HEARTBURN / GAS; Start 07/02/18 at 15:45 Clonidine HCl (Catapres) 0.1 mg PRN Q6HRS PRN PO SBP>160 OR DBP>90; Start 07/02 at 15:45 Sodium Monofluorophosphate (Fleet Adult) 133 ml PRN DAILY PRN [place] CONSTIPATION; Start 07/02/18 at 15:45 Diphenhydramine HCl (Benadryl) 25 mg PRN Q4HRS PRN IVP ITCHING; Start 07/02/18 at 15:45 Docusate Sodium (Colace) 100 mg PRN BID PRN PO CONSTIPATION; Start 07/02/18 at 15:45 Albuterol Sulfate (Ventolin Neb Soln) 2.5 mg PRN Q4HRS PRN NEB SHORTNESS OF BREATH; Start 07/02/18 at 15:45 Guaifenesin (Robitussin) 200 mg PRN Q4HRS PRN PO COUGH; Start 07/02/18 at 15:45 Lorazepam (Ativan) 0.5 mg PRN Q4HRS PRN PO ANXIETY / AGITATION; Start 07/02/18 at 15:45 Enoxaparin Sodium (Lovenox 40mg Syringe) 40 mg DAILY SQ Last administered on 07/10/18at 08:36; Start 07/03/18 at 09:00 Hydralazine HCl (Apresoline Inj) 10 mg PRN Q4HRS PRN IVP ELEVATED BP, SEE COMMENTS Last administered on 07/04/18at 14:20; Start 07/02/18 at 16:45 Nitroglycerin (Nitro-Bid Oint) 0.5 inch Q6HRS TP Last administered on 07/10/18at 11:33; Start 07/02/18 at 17:30 Aspirin (Children'S Aspirin) 81 mg DAILY PO Last administered on 07/10/18at 08:36 ; Start 07/03/18 at 09:00 Lorazepam (Ativan) 2 mg PRN Q4HRS PRN IV ALCOHOL WITHDRAWAL; Start 07/02/18 at 18:30; Status Cancel Cefepime HCl (Maxipime) 2 gm Q8HRS IVP Last administered on 07/04/18at 14:00; Start 07/03/18 at 14:30; Stop 07/04/18 at 18:56; Status DC Acyclovir Sodium 730 mg/Dextrose 264.6 ml @ 264.6 mls/ hr Q8HRS IV Last administered on 07/04/18at 05:07; Start 07/03/18 at 15:00; Stop 07/04/18 at 12:26 ; Status DC Vancomycin HCl (Vanco Per Pharmacy) 1 each PRN DAILY PRN MC SEE COMMENTS Last administered on 07/04/18at 12:31; Start 07/03/18 at 14:15; Stop 07/04/18 at 18:56 ; Status DC Ampicillin Sodium 2 gm/Sodium Chloride 100 ml @ 200 mls/hr Q4HRS IV Last administered on 07/04/18at 16:24; Start 07/03/18 at 16:00; Stop 07/04/18 at 18:56 ; Status DC Vancomycin HCl 1.5 gm/Sodium Chloride 500 ml @ 250 mls/hr 1X ONCE IV Last administered on 07/03/18at 17:54; Start 07/03/18 at 15:00; Stop 07/03/18 at 16:59 ; Status DC Levetiracetam 500 mg/Dextrose 105 ml @ 420 mls/hr Q12HR IV Last administered on 07/07/18at 09:55; Start 07/03/18 at 21:00; Stop 07/07/18 at 11:46; Status DC Divalproex Sodium (Depakote) 500 mg BID PO ; Start 07/03/18 at 21:00; Stop 07/04 at 16:20; Status DC Vancomycin HCl 1 gm/Sodium Chloride 250 ml @ 250 mls/hr Q12H IV Last administered on 07/04/18at 18:45; Start 07/04/18 at 06:00; Stop 07/04/18 at 18:58 ; Status DC Vancomycin HCl (Vancomycin Trough Level) 1 each 1X ONCE MC ; Start 07/05/18 at 05:30; Stop 07/05/18 at 05:31; Status Cancel Amino Acids/ Glycerin/ Electrolytes 1,000 ml @ 80 mls/hr [id number] IV Last administered on 07/10/18at 02:00; Start 07/03/18 at 19:15 Acyclovir Sodium 620 mg/Dextrose 262.4 ml @ 262.4 mls/ hr Q8HRS IV Last administered on 07/05/18at 05:05; Start 07/04/18 at 14:00; Stop 07/05/18 at 13:59 ; Status DC Lactobacillus Rhamnosus (Culturelle) 1 cap BID PO Last administered on at 08:36; Start 07/04/18 at 21:00 Valproic Acid 500 mg/Dextrose 55 ml @ 55 mls/hr Q8HRS IV Last administered on at 06:05; Start 07/04/18 at 17:00 Acyclovir Sodium 620 mg/Dextrose 112.4 ml @ 112.4 mls/ hr Q8HRS IV Last administered on 07/06/18 05:19; Start 07/05/18 at 14:00; Stop 07/06/18 at 13:52 ; Status DC Cefepime HCl (Maxipime) 1 gm Q8HRS IVP Last administered on 07/08/18at 05:47; Start 07/04/18 at 22:00; Stop 07/08/18 at 09:20; Status DC Iohexol (Omnipaque 350 Mg/ml) 75 ml 1X ONCE IV Last administered on 07/05/18at 11:45; Start 07/05/18 at 11:15; Stop 07/05/18 at 11:16; Status DC Info (CONTRAST GIVEN -- Rx MONITORING) 1 each PRN DAILY PRN MC SEE COMMENTS; Start 07/05/18 at 11:30; Stop 07/07/18 at 11:29; Status DC Carbamazepine (TEGretol) 200 mg BID PO Last administered on 07/10/18at 08:36; Start 07/07/18 at 21:00 Ceftriaxone Sodium (Rocephin) 2 gm Q24H IVP Last administered on 07/09/18 08:02 ; Start 07/08/18 at 10:00; Stop 07/09/18 at 11:51; Status DC Penicillin G Potassium [id number] unit/Dextrose 100 ml @ 100 mls/hr Q4HRS IV Last administered on 07/10/18 11:31; Start 07/09/18 at 12:00 Barium Sulfate (Varibar Thin Liquid Apple) 148 gm 1X ONCE PO Last administered on 07/09/18at 13:53; Start 07/09/18 at 13:00; Stop 07/09/18 at 13:01; Status DC Active Scripts Active Reported Zithromax (Azithromycin) 500 Mg Tablet 1 Tab PO DAILY Aspirin 81 Mg Tab.chew 81 Mg PO DAILY Hydrocodone-Apap 5-325 (Hydrocodone Bit/Acetaminophen) 1 Tab Tablet 1 Tab PO PRN Q6HRS PRN Vitals/I & O Vital Sign - Last 24 Hours 4/2/19 4/2/19 4/2/19 4/2/19 12:58 15:00 18:20 19:00 Temp 98.0 98.0 98.0 98.0 Pulse 65 68 68 63 Resp 18 18 B/P (MAP) 135/64 132/56 (81) 132/56 144/72 (96) Pulse Ox 100 100 O2 Delivery Room Air Room Air 07/09/18 07/09/18 07/10/18 07/10/18 20:15 23:00 00:45 03:00 Temp 97.7 97.6 97.7 97.6 Pulse 56 63 61 Resp 18 18 B/P (MAP) 179/68 (105) 144/72 140/70 (93) Pulse Ox 97 96 O2 Delivery Room Air Room Air Room Air 07/10/18 07/10/18 07/10/18 07/10/18 06:06 07:00 08:00 11:00 Temp 96.7 97.6 96.7 97.6 Pulse 61 58 51 Resp 16 18 B/P (MAP) 140/70 120/47 (71) 107/52 (70) Pulse Ox 99 98 O2 Delivery Room Air Room Air Room Air 07/10/18 11:33 Pulse 51 B/P (MAP) 107/52 Intake and Output 07/09/18 07/09/18 07/10/18 15:00 23:00 07:00 Intake Total 0 ml Balance 0 ml MY OTT MD Jul 10, 2018 12:10
--- NOTE | 2018-07-10 13:41 | PDOC ---
Infectious Disease Note Subjective Subjective Clearly stated he was better today No fevers last 24 hours Vital Sign Vital Signs Vital Signs Date Time Temp Pulse Resp B/P (MAP) Pulse Ox O2 Delivery O2 Flow Rate FiO2 07/10/18 11:33 51 107/52 07/10/18 11:00 97.6 18 98 Room Air 97.6 Physical Exam PHYSICAL EXAM GENERAL: Propped up in bed. Much more alert NAD - answering some questions HEENT: Pupils equally round, Oral mucosa dry, build up secretions, poor dentition NECK: Supple. LUNGS: Clear HEART: S1 and S2. ABDOMEN: Soft, no grimace or guarding to palpation, BS present EXTREMITIES: No edema and no cyanosis. SKIN: Warm and dry. No generalized rash. [employer]UIT[employer]: Easy to arouse, ? understanding of [place]ic PICC RUE - clean Labs Lab Laboratory Tests Test 07/10/18 05:30 07/10/18 06:30 White Blood Count 5.3 x10^3/uL (4.0-11.0) Red Blood Count 5.01 x10^6/uL (4.30-5.70) Hemoglobin 12.5 g/dL (13.0-17.5) Hematocrit 38.4 % (39.0-53.0) Mean Corpuscular Volume 77 fL (79-100) Mean Corpuscular Hemoglobin 25 pg (25-35) Mean Corpuscular Hemoglobin Concent 33 g/dL (31-37) Red Cell Distribution Width 14.3 % (11.5-14.5) Platelet Count 212 x10^3/uL (140-400) Neutrophils (%) (Auto) 43 % (31-73) Lymphocytes (%) (Auto) 20 % (24-48) Monocytes (%) (Auto) 9 % (0-9) Eosinophils (%) (Auto) 28 % (0-3) Basophils (%) (Auto) 0 % (0-3) Neutrophils # (Auto) 2.3 x10^3uL (1.8-7.7) Lymphocytes # (Auto) 1.1 x10^3/uL (1.0-4.8) Monocytes # (Auto) 0.5 x10^3/uL (0.0-1.1) Eosinophils # (Auto) 1.5 x10^3/uL (0.0-0.7) Basophils # (Auto) 0.0 x10^3/uL (0.0-0.2) Sodium Level 139 mmol/L (136-145) Potassium Level 5.0 mmol/L (3.5-5.1) Chloride Level 103 mmol/L (98-107) Carbon Dioxide Level 27 mmol/L (21-32) Anion Gap 9 (6-14) Blood Urea Nitrogen 20 mg/dL (8-26) Creatinine 0.6 mg/dL (0.7-1.3) Estimated GFR (Cockcroft-Gault) 136.1 Glucose Level 106 mg/dL (70-99) Calcium Level 8.6 mg/dL (8.5-10.1) Micro Microbiology 07/02/18 Blood Culture - Final, Complete NO GROWTH AFTER 5 DAYS 07/05/18 CSF Gram Stain - Final, Complete Objective Assessment Neurosyphilis + VDRL. RPR 1:16. HIV - neg TB spot indeterminate Encephalopathy - more alert today ? if Cefepime was playing into it - Unable to obtain MRI as the patient has metallic fragments in the floor of the left maxillary sinus. -s/p LP: CSF WBC 0, glucose 61, T protein 61.1. VDRL pending -HSV PCR negative; HIV nonreactive Status epilepticus. on Keppra Hypertensive encephalopathy. History of incarceration more than 20 years ago. Diabetes. Peripheral vascular disease. Left nephrectomy. Aspiration Pneumonitis Smoking Plan Plan of Care Cont PCN 4 million q 4. ? if could take probenecid until more alert Will need repeat TB spot in a few month Maintain aspiration precaution. Neurology following Oral care D/w nursing CHET AVENDANO MD Jul 10, 2018 13:41
[2018-07-10 15:00] VITALS: BP 109/70
[2018-07-10 19:00] VITALS: BP 105/66
[2018-07-10 23:00] VITALS: BP 126/57
[2018-07-11 00:06] VITALS: BP 126/57
[2018-07-11] MEDS: DEXTROSE 5% IV SCH ×6 (00:22→20:02)
[2018-07-11] MEDS: NITROGLYCERIN OINT 1 GM PACKET. TP SCH ×4 (00:22→17:52)
[2018-07-11] MEDS: PENICILLIN K IV SCH ×6 (00:22→20:02)
[2018-07-11 03:00] VITALS: BP 153/63
[2018-07-11] MEDS: AMINO AC 3%/ELECTROLYTE/GLYCER 1,000 ML IV SCH ×2 (03:30→16:18)
[2018-07-11 05:15] LABS: BASO % 1 % (0-3); EOS # 1.8 x10^3/uL (0.0-0.7); EOS % 30 % (0-3); HEMATOCRIT 38.8 % (39.0-53.0); HEMOGLOBIN 12.2 g/dL (13.0-17.5); LYMPH # 1.1 x10^3/uL (1.0-4.8); LYMPH % 18 % (24-48); MEAN CORPUSCULAR HEMOGLOBIN 24 pg (25-35); MEAN CORPUSCULAR HGB CONC 32 g/dL (31-37); MEAN CORPUSCULAR VOLUME 77 fL (79-100); MONO # 0.6 x10^3/uL (0.0-1.1); MONO % 10 % (0-9); NEUT # 2.5 x10^3uL (1.8-7.7); NEUT % 41 % (31-73); PLATELET COUNT 214 x10^3/uL (140-400); RED BLOOD COUNT 5.03 x10^6/uL (4.30-5.70); RED CELL DISTRIBUTION WIDTH 14.8 % (11.5-14.5); WHITE BLOOD COUNT 6.1 x10^3/uL (4.0-11.0)
[2018-07-11 05:36] LABS: CALCIUM 8.8 mg/dL (8.5-10.1); CREATININE 0.7 mg/dL (0.7-1.3); GFR 113.9
[2018-07-11 05:44] LABS: POTASSIUM 5.9 mmol/L (3.5-5.1)
[2018-07-11 07:00] VITALS: BP 158/57
--- NOTE | 2018-07-11 07:47 | PDOC ---
PROGRESS NOTES Chief Complaint Chief Complaint Encephalopathy, likely metabolic though pt is not able to give any history, no family at bedside. Unable to obtain MRI as the patient has metallic fragments in the floor of the left maxillary sinus. Status epilepticus - Complex focal seizures on 07/02/2016. Hypertensive encephalopathy Acute neurosyphilis - TPPA positive,syphilis unknown status, RPR still pending, HIV negative, Acute hepatitis panel neg History of incarceration more than 20 years ago. Diabetes 2 Peripheral vascular disease. Smoking. Left nephrectomy. Peripheral arterial disease. Gastroesophageal reflux disease. 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 History of Present Illness History of Present Illness Mr Sorenson is a 63-year-old male who presented to the ER on 07/02/2018 where he was brought via EMS from his residence for tremors, which started a week prior to admission. The patient is having altered mental status, not verbalizing, unable to give full details. History obtained from staff and chart review. According to the patient's girlfriend report, the patient started having the above symptoms a week prior to admission. He has no insurance, so they did not seek medical attention until it got worse when his girlfriend noted him to be disoriented. The patient was found to have tremors and subsequently had a seizure episode and 911 was called. The patient had CT of the head at [facility] did not show any acute changes, had some cerebral atrophy and old chronic ischemia. The patient was started on Keppra. Brain MRI is unable to perform as he has metallic projects at the floor of the left maxillary sinus. The patient underwent an EEG showing pattern of electroencephalogram may suggest underlying pathology in the right hemispherical area. He also had hypertensive emergency with blood pressure elevated at 214/112. He was initially disoriented, confused, unable to give history. No fevers, no chills, no nausea, no vomiting and no shortness of breath or chest pain. No diarrhea. No rash. He has been in this country for 20 years. No history of recent travel. No history of recent immunization. It does not appear that he is taking any medications. There is history of remote incarceration in his country 20 years prior to him coming to the [place]. Hard to understand - Sami speaking only Found with Neurosyphilis + VDRL. RPR 1:16. HIV - neg. Less confused insofar as he can answer some questions, some left sided weakness. ASSESSMENT/PLAN Neurosyphilis - Cont PCN 4 million q 4. - Given this diagnosis his overall prognosis poor, will definitely need some sort of placement as he is permanently disabled and will likely suffer prolonged symptoms. TB spot indeterminate - will repeat Encephalopathy - more alert today ? if Cefepime was playing into it - Unable to obtain MRI as the patient has metallic fragments in the floor of the left maxillary sinus. -s/p LP: CSF WBC 0, glucose 61, T protein 61.1. VDRL pending -HSV PCR negative; HIV nonreactive Status epilepticus. on Keppra Hypertensive encephalopathy. History of incarceration more than 20 years ago. Diabetes. Peripheral vascular disease. Left nephrectomy. Aspiration Pneumonitis Smoking Vitals Vitals Vital Signs Date Time Temp Pulse Resp B/P (MAP) Pulse Ox O2 Delivery O2 Flow Rate FiO2 07/11/18 05:54 59 153/63 07/11/18 03:00 97.9 16 97 Room Air 97.9 Physical Exam Physical Exam GENERAL: Propped up in bed. Much more alert NAD - answering some questions HEENT: Pupils equally round, Oral mucosa dry, build up secretions, poor dentition NECK: Supple. LUNGS: Clear HEART: S1 and S2. ABDOMEN: Soft, no grimace or guarding to palpation, BS present EXTREMITIES: No edema and no cyanosis. SKIN: Warm and dry. No generalized rash. GOLF TOURNAMENT CONSULTANT: Easy to arouse, ? understanding of Urdu PICC RUE - clean General: Alert, No acute distress, Other (unable to communicate needs) Heart: Regular rate, Normal S1, Normal S2, No murmurs Lungs: Clear, Other (airway patent, normal respiratory effort) Abdomen: Normal bowel sounds, Soft, No tenderness, No hepatosplenomegaly, No masses Extremities: No clubbing, No cyanosis, No edema, Other (Strong peripheral pulses 3+) Skin: No rashes, No breakdown, No significant lesion Labs LABS Laboratory Tests Test 07/11/18 05:00 White Blood Count 6.1 x10^3/uL (4.0-11.0) Red Blood Count 5.03 x10^6/uL (4.30-5.70) Hemoglobin 12.2 g/dL (13.0-17.5) Hematocrit 38.8 % (39.0-53.0) Mean Corpuscular Volume 77 fL (79-100) Mean Corpuscular Hemoglobin 24 pg (25-35) Mean Corpuscular Hemoglobin Concent 32 g/dL (31-37) Red Cell Distribution Width 14.8 % (11.5-14.5) Platelet Count 214 x10^3/uL (140-400) Neutrophils (%) (Auto) 41 % (31-73) Lymphocytes (%) (Auto) 18 % (24-48) Monocytes (%) (Auto) 10 % (0-9) Eosinophils (%) (Auto) 30 % (0-3) Basophils (%) (Auto) 1 % (0-3) Neutrophils # (Auto) 2.5 x10^3uL (1.8-7.7) Lymphocytes # (Auto) 1.1 x10^3/uL (1.0-4.8) Monocytes # (Auto) 0.6 x10^3/uL (0.0-1.1) Eosinophils # (Auto) 1.8 x10^3/uL (0.0-0.7) Basophils # (Auto) 0.0 x10^3/uL (0.0-0.2) Sodium Level 132 mmol/L (136-145) Potassium Level 5.9 mmol/L (3.5-5.1) Chloride Level 99 mmol/L (98-107) Carbon Dioxide Level 27 mmol/L (21-32) Anion Gap 6 (6-14) Blood Urea Nitrogen 18 mg/dL (8-26) Creatinine 0.7 mg/dL (0.7-1.3) Estimated GFR (Cockcroft-Gault) 113.9 Glucose Level 90 mg/dL (70-99) Calcium Level 8.8 mg/dL (8.5-10.1) Assessment and Plan Assessmemt and Plan Problems Medical Problems: (1) Elevated troponin Status: Acute (2) Tremor Status: Acute Comment Review of Relevant I have reviewed the following items kendrick (where applicable) has been applied. Labs Laboratory Tests Test 07/09/18 10:50 07/10/18 05:30 07/10/18 06:30 07/11/18 05:00 Urine Opiates Screen Neg (NEG) Urine Methadone Screen Neg (NEG) Urine Barbiturates Neg (NEG) Urine Phencyclidine Screen Neg (NEG) Urine Amphetamine/Methamphetamine Neg (NEG) Urine Benzodiazepines Screen Neg (NEG) Urine Cocaine Screen Neg (NEG) Urine Cannabinoids Screen Neg (NEG) Urine Ethyl Alcohol Neg (NEG) White Blood Count 5.3 x10^3/uL (4.0-11.0) 6.1 x10^3/uL (4.0-11.0) Red Blood Count 5.01 x10^6/uL (4.30-5.70) 5.03 x10^6/uL (4.30-5.70) Hemoglobin 12.5 g/dL (13.0-17.5) 12.2 g/dL (13.0-17.5) Hematocrit 38.4 % (39.0-53.0) 38.8 % (39.0-53.0) Mean Corpuscular Volume 77 fL (79-100) 77 fL (79-100) Mean Corpuscular Hemoglobin 25 pg (25-35) 24 pg (25-35) Mean Corpuscular Hemoglobin Concent 33 g/dL (31-37) 32 g/dL (31-37) Red Cell Distribution Width 14.3 % (11.5-14.5) 14.8 % (11.5-14.5) Platelet Count 212 x10^3/uL (140-400) 214 x10^3/uL (140-400) Neutrophils (%) (Auto) 43 % (31-73) 41 % (31-73) Lymphocytes (%) (Auto) 20 % (24-48) 18 % (24-48) Monocytes (%) (Auto) 9 % (0-9) 10 % (0-9) Eosinophils (%) (Auto) 28 % (0-3) 30 % (0-3) Basophils (%) (Auto) 0 % (0-3) 1 % (0-3) Neutrophils # (Auto) 2.3 x10^3uL (1.8-7.7) 2.5 x10^3uL (1.8-7.7) Lymphocytes # (Auto) 1.1 x10^3/uL (1.0-4.8) 1.1 x10^3/uL (1.0-4.8) Monocytes # (Auto) 0.5 x10^3/uL (0.0-1.1) 0.6 x10^3/uL (0.0-1.1) Eosinophils # (Auto) 1.5 x10^3/uL (0.0-0.7) 1.8 x10^3/uL (0.0-0.7) Basophils # (Auto) 0.0 x10^3/uL (0.0-0.2) 0.0 x10^3/uL (0.0-0.2) Sodium Level 139 mmol/L (136-145) 132 mmol/L (136-145) Potassium Level 5.0 mmol/L (3.5-5.1) 5.9 mmol/L (3.5-5.1) Chloride Level 103 mmol/L (98-107) 99 mmol/L (98-107) Carbon Dioxide Level 27 mmol/L (21-32) 27 mmol/L (21-32) Anion Gap 9 (6-14) 6 (6-14) Blood Urea Nitrogen 20 mg/dL (8-26) 18 mg/dL (8-26) Creatinine 0.6 mg/dL (0.7-1.3) 0.7 mg/dL (0.7-1.3) Estimated GFR (Cockcroft-Gault) 136.1 113.9 Glucose Level 106 mg/dL (70-99) 90 mg/dL (70-99) Calcium Level 8.6 mg/dL (8.5-10.1) 8.8 mg/dL (8.5-10.1) Laboratory Tests Test 07/11/18 05:00 White Blood Count 6.1 x10^3/uL (4.0-11.0) Red Blood Count 5.03 x10^6/uL (4.30-5.70) Hemoglobin 12.2 g/dL (13.0-17.5) Hematocrit 38.8 % (39.0-53.0) Mean Corpuscular Volume 77 fL (79-100) Mean Corpuscular Hemoglobin 24 pg (25-35) Mean Corpuscular Hemoglobin Concent 32 g/dL (31-37) Red Cell Distribution Width 14.8 % (11.5-14.5) Platelet Count 214 x10^3/uL (140-400) Neutrophils (%) (Auto) 41 % (31-73) Lymphocytes (%) (Auto) 18 % (24-48) Monocytes (%) (Auto) 10 % (0-9) Eosinophils (%) (Auto) 30 % (0-3) Basophils (%) (Auto) 1 % (0-3) Neutrophils # (Auto) 2.5 x10^3uL (1.8-7.7) Lymphocytes # (Auto) 1.1 x10^3/uL (1.0-4.8) Monocytes # (Auto) 0.6 x10^3/uL (0.0-1.1) Eosinophils # (Auto) 1.8 x10^3/uL (0.0-0.7) Basophils # (Auto) 0.0 x10^3/uL (0.0-0.2) Sodium Level 132 mmol/L (136-145) Potassium Level 5.9 mmol/L (3.5-5.1) Chloride Level 99 mmol/L (98-107) Carbon Dioxide Level 27 mmol/L (21-32) Anion Gap 6 (6-14) Blood Urea Nitrogen 18 mg/dL (8-26) Creatinine 0.7 mg/dL (0.7-1.3) Estimated GFR (Cockcroft-Gault) 113.9 Glucose Level 90 mg/dL (70-99) Calcium Level 8.8 mg/dL (8.5-10.1) Microbiology 07/02/18 Blood Culture - Final, Complete NO GROWTH AFTER 5 DAYS 07/05/18 CSF Gram Stain - Final, Complete Medications Current Medications Sodium Chloride 1,000 ml @ 1,000 mls/hr 1X ONCE IV Last administered on at 10:00; Start 07/02/18 at 10:00; Stop 07/02/18 at 10:59; Status DC Lorazepam (Ativan) 0.5 mg 1X ONCE IV Last administered on 07/02/18at 12:12; Start 07/02/18 at 12:30; Stop 07/02/18 at 12:31; Status DC Aspirin (Children'S Aspirin) 324 mg 1X ONCE PO Last administered on 07/02/18at 13:18; Start 07/02/18 at 13:30; Stop 07/02/18 at 13:31; Status DC Acetaminophen (Tylenol) 650 mg PRN Q4HRS PRN PO FEVER; Start 07/02/18 at 14:30 ; Stop 07/02/18 at 18:38; Status DC Lorazepam (Ativan) 2 mg PRN Q4HRS PRN IV ANXIETY/AGITATION/ETOH WITHDRL Last administered on 07/07/18at 03:20; Start 07/02/18 at 15:30 Levetiracetam 750 mg/Dextrose 107.5 ml @ 420 mls/hr Q12HR IV Last administered on 07/03/18at 09:35; Start 07/02/18 at 16:30; Stop 07/03/18 at 14:17 ; Status DC Sodium Chloride (Normal Saline Flush 3ml) 3 ml QSHIFT PRN IV AFTER MEDS AND BLOOD DRAWS; Start 07/02/18 at 15:45 Sodium Chloride 1,000 ml @ 100 mls/hr Q10H IV Last administered on 07/02/18at 16:04; Start 07/02/18 at 16:30; Stop 07/04/18 at 16:37; Status DC Ondansetron HCl (Zofran) 4 mg PRN Q4HRS PRN IV NAUSEA/VOMITING; Start 07/02/18 at 15:45 Zolpidem Tartrate (Ambien) 5 mg PRN QHS PRN PO INSOMNIA; Start 07/02/18 at 15: 45 Acetaminophen (Tylenol) 650 mg PRN Q4HRS PRN PO TEMP OVER 100.4F OR MILD PAIN; Start 07/02/18 at 15:45 Al Hydroxide/Mg Hydroxide (Mylanta Plus Xs) 30 ml PRN DAILY PRN PO HEARTBURN / GAS; Start 07/02/18 at 15:45 Clonidine HCl (Catapres) 0.1 mg PRN Q6HRS PRN PO SBP>160 OR DBP>90; Start 07/02 at 15:45 Sodium Monofluorophosphate (Fleet Adult) 133 ml PRN DAILY PRN ND CONSTIPATION; Start 07/02/18 at 15:45 Diphenhydramine HCl (Benadryl) 25 mg PRN Q4HRS PRN IVP ITCHING; Start 07/02/18 at 15:45 Docusate Sodium (Colace) 100 mg PRN BID PRN PO CONSTIPATION; Start 07/02/18 at 15:45 Albuterol Sulfate (Ventolin Neb Soln) 2.5 mg PRN Q4HRS PRN NEB SHORTNESS OF BREATH; Start 07/02/18 at 15:45 Guaifenesin (Robitussin) 200 mg PRN Q4HRS PRN PO COUGH; Start 07/02/18 at 15:45 Lorazepam (Ativan) 0.5 mg PRN Q4HRS PRN PO ANXIETY / AGITATION; Start 07/02/18 at 15:45 Enoxaparin Sodium (Lovenox 40mg Syringe) 40 mg DAILY SQ Last administered on 07/10/18at 08:36; Start 07/03/18 at 09:00 Hydralazine HCl (Apresoline Inj) 10 mg PRN Q4HRS PRN IVP ELEVATED BP, SEE COMMENTS Last administered on 07/04/18at 14:20; Start 07/02/18 at 16:45 Nitroglycerin (Nitro-Bid Oint) 0.5 inch Q6HRS TP Last administered on 07/11/18at 05:54; Start 07/02/18 at 17:30 Aspirin (Children'S Aspirin) 81 mg DAILY PO Last administered on 07/10/18at 08:36 ; Start 07/03/18 at 09:00 Lorazepam (Ativan) 2 mg PRN Q4HRS PRN IV ALCOHOL WITHDRAWAL; Start 07/02/18 at 18:30; Status Cancel Cefepime HCl (Maxipime) 2 gm Q8HRS IVP Last administered on 07/04/18at 14:00; Start 07/03/18 at 14:30; Stop 07/04/18 at 18:56; Status DC Acyclovir Sodium 730 mg/Dextrose 264.6 ml @ 264.6 mls/ hr Q8HRS IV Last administered on 07/04/18at 05:07; Start 07/03/18 at 15:00; Stop 07/04/18 at 12:26 ; Status DC Vancomycin HCl (Vanco Per Pharmacy) 1 each PRN DAILY PRN MC SEE COMMENTS Last administered on 07/04/18at 12:31; Start 07/03/18 at 14:15; Stop 07/04/18 at 18:56 ; Status DC Ampicillin Sodium 2 gm/Sodium Chloride 100 ml @ 200 mls/hr Q4HRS IV Last administered on 07/04/18at 16:24; Start 07/03/18 at 16:00; Stop 07/04/18 at 18:56 ; Status DC Vancomycin HCl 1.5 gm/Sodium Chloride 500 ml @ 250 mls/hr 1X ONCE IV Last administered on 07/03/18at 17:54; Start 07/03/18 at 15:00; Stop 07/03/18 at 16:59 ; Status DC Levetiracetam 500 mg/Dextrose 105 ml @ 420 mls/hr Q12HR IV Last administered on 07/07/18at 09:55; Start 07/03/18 at 21:00; Stop 07/07/18 at 11:46; Status DC Divalproex Sodium (Depakote) 500 mg BID PO ; Start 07/03/18 at 21:00; Stop 07/04 at 16:20; Status DC Vancomycin HCl 1 gm/Sodium Chloride 250 ml @ 250 mls/hr Q12H IV Last administered on 07/04/18at 18:45; Start 07/04/18 at 06:00; Stop 07/04/18 at 18:58 ; Status DC Vancomycin HCl (Vancomycin Trough Level) 1 each 1X ONCE MC ; Start 07/05/18 at 05:30; Stop 07/05/18 at 05:31; Status Cancel Amino Acids/ Glycerin/ Electrolytes 1,000 ml @ 80 mls/hr [id number] IV Last administered on 07/11/18at 03:30; Start 07/03/18 at 19:15 Acyclovir Sodium 620 mg/Dextrose 262.4 ml @ 262.4 mls/ hr Q8HRS IV Last administered on 07/05/18at 05:05; Start 07/04/18 at 14:00; Stop 07/05/18 at 13:59 ; Status DC Lactobacillus Rhamnosus (Culturelle) 1 cap BID PO Last administered on at 22:17; Start 07/04/18 at 21:00 Valproic Acid 500 mg/Dextrose 55 ml @ 55 mls/hr Q8HRS IV Last administered on at 06:05; Start 07/04/18 at 17:00; Stop 07/10/18 at 12:12; Status DC Acyclovir Sodium 620 mg/Dextrose 112.4 ml @ 112.4 mls/ hr Q8HRS IV Last administered on 07/06/18at 05:19; Start 07/05/18 at 14:00; Stop 07/06/18 at 13:52 ; Status DC Cefepime HCl (Maxipime) 1 gm Q8HRS IVP Last administered on 07/08/18at 05:47; Start 07/04/18 at 22:00; Stop 07/08/18 at 09:20; Status DC Iohexol (Omnipaque 350 Mg/ml) 75 ml 1X ONCE IV Last administered on 07/05/18at 11:45; Start 07/05/18 at 11:15; Stop 07/05/18 at 11:16; Status DC Info (CONTRAST GIVEN -- Rx MONITORING) 1 each PRN DAILY PRN MC SEE COMMENTS; Start 07/05/18 at 11:30; Stop 07/07/18 at 11:29; Status DC Carbamazepine (TEGretol) 200 mg BID PO Last administered on 07/10/18at 22:17; Start 07/07/18 at 21:00 Ceftriaxone Sodium (Rocephin) 2 gm Q24H IVP Last administered on 07/09/18 08:02 ; Start 07/08/18 at 10:00; Stop 07/09/18 at 11:51; Status DC Penicillin G Potassium [id number] unit/Dextrose 100 ml @ 100 mls/hr Q4HRS IV Last administered on 07/11/18at 04:47; Start 07/09/18 at 12:00 Barium Sulfate (Varibar Thin Liquid Apple) 148 gm 1X ONCE PO Last administered on 07/09/18 13:53; Start 07/09/18 at 13:00; Stop 07/09/18 at 13:01; Status DC Active Scripts Active Reported Zithromax (Azithromycin) 500 Mg Tablet 1 Tab PO DAILY Aspirin 81 Mg Tab.chew 81 Mg PO DAILY Hydrocodone-Apap 5-325 (Hydrocodone Bit/Acetaminophen) 1 Tab Tablet 1 Tab PO PRN Q6HRS PRN Vitals/I & O Vital Sign - Last 24 Hours 4/3/07/10/18 07/10/18 07/10/18 08:00 11:00 11:33 15:00 Temp 97.6 97.6 97.6 97.6 Pulse 51 51 61 Resp 18 18 B/P (MAP) 107/52 (70) 107/52 109/70 (83) Pulse Ox 98 98 O2 Delivery Room Air Room Air Room Air 07/10/18 07/10/18 07/10/18 07/10/18 17:23 19:00 20:00 23:00 Temp 97.3 98.3 97.3 98.3 Pulse 61 56 58 Resp 14 14 B/P (MAP) 109/70 105/66 (79) 126/57 (80) Pulse Ox 100 O2 Delivery Room Air Room Air Room Air 07/11/18 07/11/18 07/11/18 07/11/18 00:06 00:22 03:00 05:54 Temp 98.3 97.9 98.3 97.9 Pulse 58 58 59 59 Resp 14 16 B/P (MAP) 126/57 (80) 126/57 153/63 (93) 153/63 Pulse Ox 100 97 O2 Delivery Room Air Room Air Intake and Output 07/10/18 07/10/18 07/11/18 14:59 22:59 06:59 Intake Total 25 ml 335 ml 220 ml Output Total 50 ml 550 ml Balance 25 ml 285 ml -330 ml Nutrition Consultation Dietary Evaluation: Recommendations by RD: PPN/TPN Comments: Continue PPN for short-term nutrition needs If unable to advance diet per TEMPLATE WORKER recommend consideration of dobhoff placement for TF to better meet nutrition needs Expected Outcomes/Goals: Diet advancement Interpretation of weight loss: >7.5% in 3 months Malnutrition Findings: Weight Status: Appropriate FAISAL BRIAN MD Jul 11, 2018 07:47
[2018-07-11] MEDS: ASPIRIN CHEWABLE 81 MG TABLET. PO SCH (08:04)
[2018-07-11] MEDS: LACTOBACILLUS RHAMNOSUS GG 1 CAPSULE. PO SCH ×2 (08:05→20:02)
[2018-07-11] MEDS: carBAMazepine 200 MG TABLET PO SCH ×2 (08:05→20:02)
[2018-07-11] MEDS: ENOXAPARIN 40 MG/0.4 ML SYRINGE. SQ SCH (08:07)
--- NOTE | 2018-07-11 10:25 | PDOC ---
Infectious Disease Note Subjective Subjective Sleepy again but states ok No fevers last 24 hours Vital Sign Vital Signs Vital Signs Date Time Temp Pulse Resp B/P (MAP) Pulse Ox O2 Delivery O2 Flow Rate FiO2 07/11/18 08:00 Room Air 07/11/18 07:00 98.4 58 18 158/57 (90) 96 98.4 Physical Exam PHYSICAL EXAM GENERAL: Propped up in bed. Much more alert NAD - answering some questions HEENT: Pupils equally round, Oral mucosa dry, build up secretions, poor dentition NECK: Supple. LUNGS: Clear HEART: S1 and S2. ABDOMEN: Soft, no grimace or guarding to palpation, BS present EXTREMITIES: No edema and no cyanosis. SKIN: Warm and dry. No generalized rash. NURSE INTERN: Easy to arouse, ? understanding of Colombian PICC RUE - clean Labs Lab Laboratory Tests Test 07/11/18 05:00 White Blood Count 6.1 x10^3/uL (4.0-11.0) Red Blood Count 5.03 x10^6/uL (4.30-5.70) Hemoglobin 12.2 g/dL (13.0-17.5) Hematocrit 38.8 % (39.0-53.0) Mean Corpuscular Volume 77 fL (79-100) Mean Corpuscular Hemoglobin 24 pg (25-35) Mean Corpuscular Hemoglobin Concent 32 g/dL (31-37) Red Cell Distribution Width 14.8 % (11.5-14.5) Platelet Count 214 x10^3/uL (140-400) Neutrophils (%) (Auto) 41 % (31-73) Lymphocytes (%) (Auto) 18 % (24-48) Monocytes (%) (Auto) 10 % (0-9) Eosinophils (%) (Auto) 30 % (0-3) Basophils (%) (Auto) 1 % (0-3) Neutrophils # (Auto) 2.5 x10^3uL (1.8-7.7) Lymphocytes # (Auto) 1.1 x10^3/uL (1.0-4.8) Monocytes # (Auto) 0.6 x10^3/uL (0.0-1.1) Eosinophils # (Auto) 1.8 x10^3/uL (0.0-0.7) Basophils # (Auto) 0.0 x10^3/uL (0.0-0.2) Sodium Level 132 mmol/L (136-145) Potassium Level 5.9 mmol/L (3.5-5.1) Chloride Level 99 mmol/L (98-107) Carbon Dioxide Level 27 mmol/L (21-32) Anion Gap 6 (6-14) Blood Urea Nitrogen 18 mg/dL (8-26) Creatinine 0.7 mg/dL (0.7-1.3) Estimated GFR (Cockcroft-Gault) 113.9 Glucose Level 90 mg/dL (70-99) Calcium Level 8.8 mg/dL (8.5-10.1) Micro Microbiology 07/02/18 Blood Culture - Final, Complete NO GROWTH AFTER 5 DAYS 07/05/18 CSF Gram Stain - Final, Complete Objective Assessment Neurosyphilis + VDRL. RPR 1:16. HIV - neg TB spot indeterminate Encephalopathy - more alert today ? if Cefepime was playing into it - Unable to obtain MRI as the patient has metallic fragments in the floor of the left maxillary sinus. -s/p LP: CSF WBC 0, glucose 61, T protein 61.1. VDRL pending -HSV PCR negative; HIV nonreactive Status epilepticus. on Keppra Hypertensive encephalopathy. History of incarceration more than 20 years ago. Diabetes. Peripheral vascular disease. Left nephrectomy. Aspiration Pneumonitis Smoking Plan Plan of Care Cont PCN 4 million q 4. d/w nursing and he is taking po so Will begin po Probenicid 500 mg po QID when available from Pharmacy (d/w pharmacy today) and then change to daily IM procaine PCN injections 2.4 million units to complete 14 days will consider Rocephin day one so will need treatment with last dose . This will complete 10 to 14 days of treatment He will need a repeat CSF VDRL in 3 mos to 6 mos and VDRL should be nonreactive or will require retreatment Will need repeat TB spot in a few month Maintain aspiration precaution. Neurology following Oral care D/w nursing D/w CHET Singletary MD Jul 11, 2018 10:25
[2018-07-11 11:00] VITALS: BP 95/50
--- NOTE | 2018-07-11 14:21 | PDOC ---
PROGRESS NOTES Assessment Problems Medical Problems: (1) Elevated troponin Status: Acute (2) Tremor Status: Acute Status epilepticus, controlled on 07/02/18. Complex focal seizure Repeat electroencephalogram negative for seizure activity Metabolic encephalopathy. Hypertensive encephalopathy. Hypertensive emergency, BP 214/112 mmHg. Abnormal chorea like movements in left UE, chronic, none observed today. Treponema Pallidum Ab positive. 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 Note negative urine drug screen Plan Tegretol 200 mg bid No brain MRI due to metallic objects at the floor of the left maxillary sinus. Treat medical diseases. Consulted ID, agree with plans. BP control. Speech therapy following Will need long-term placement. Subjective Denies pain, won't tell me why he is refusing to eat Objective Vital Signs Date Time Temp Pulse Resp B/P (MAP) Pulse Ox O2 Delivery O2 Flow Rate FiO2 07/11/18 12:00 53 95/50 07/11/18 11:00 98.7 18 96 98.7 07/11/18 08:00 Room Air Intake and Output 07/11/18 07:00 Intake Total 580 ml Output Total 600 ml Balance -20 ml Intake Oral 345 ml IV Total 155 ml Blood Product IV Normal Saline Flush 60 ml Other 20 ml Output Urine Total 600 ml # Voids 2 PHYSICAL EXAM More alert, knows that he is in the hospital, does not know date, does follow some commands, refusing to eat his breakfast. PERRL. EOMI. CN: no focal findings. Muscle tone: normal. Muscle strength: 4/5 DTR: 2+ Plantar reflex: flexor Gait: not examined in bed. Sensory exam: no abnormal findings. No cerebellar signs elicited. No seizure activity observed Review of Relevant I have reviewed the following items kendrick (where applicable) has been applied. Labs Laboratory Tests Test 07/10/18 05:30 07/10/18 06:30 07/11/18 05:00 White Blood Count 5.3 x10^3/uL (4.0-11.0) 6.1 x10^3/uL (4.0-11.0) Red Blood Count 5.01 x10^6/uL (4.30-5.70) 5.03 x10^6/uL (4.30-5.70) Hemoglobin 12.5 g/dL (13.0-17.5) 12.2 g/dL (13.0-17.5) Hematocrit 38.4 % (39.0-53.0) 38.8 % (39.0-53.0) Mean Corpuscular Volume 77 fL (79-100) 77 fL (79-100) Mean Corpuscular Hemoglobin 25 pg (25-35) 24 pg (25-35) Mean Corpuscular Hemoglobin Concent 33 g/dL (31-37) 32 g/dL (31-37) Red Cell Distribution Width 14.3 % (11.5-14.5) 14.8 % (11.5-14.5) Platelet Count 212 x10^3/uL (140-400) 214 x10^3/uL (140-400) Neutrophils (%) (Auto) 43 % (31-73) 41 % (31-73) Lymphocytes (%) (Auto) 20 % (24-48) 18 % (24-48) Monocytes (%) (Auto) 9 % (0-9) 10 % (0-9) Eosinophils (%) (Auto) 28 % (0-3) 30 % (0-3) Basophils (%) (Auto) 0 % (0-3) 1 % (0-3) Neutrophils # (Auto) 2.3 x10^3uL (1.8-7.7) 2.5 x10^3uL (1.8-7.7) Lymphocytes # (Auto) 1.1 x10^3/uL (1.0-4.8) 1.1 x10^3/uL (1.0-4.8) Monocytes # (Auto) 0.5 x10^3/uL (0.0-1.1) 0.6 x10^3/uL (0.0-1.1) Eosinophils # (Auto) 1.5 x10^3/uL (0.0-0.7) 1.8 x10^3/uL (0.0-0.7) Basophils # (Auto) 0.0 x10^3/uL (0.0-0.2) 0.0 x10^3/uL (0.0-0.2) Sodium Level 139 mmol/L (136-145) 132 mmol/L (136-145) Potassium Level 5.0 mmol/L (3.5-5.1) 5.9 mmol/L (3.5-5.1) Chloride Level 103 mmol/L (98-107) 99 mmol/L (98-107) Carbon Dioxide Level 27 mmol/L (21-32) 27 mmol/L (21-32) Anion Gap 9 (6-14) 6 (6-14) Blood Urea Nitrogen 20 mg/dL (8-26) 18 mg/dL (8-26) Creatinine 0.6 mg/dL (0.7-1.3) 0.7 mg/dL (0.7-1.3) Estimated GFR (Cockcroft-Gault) 136.1 113.9 Glucose Level 106 mg/dL (70-99) 90 mg/dL (70-99) Calcium Level 8.6 mg/dL (8.5-10.1) 8.8 mg/dL (8.5-10.1) Laboratory Tests Test 07/11/18 05:00 White Blood Count 6.1 x10^3/uL (4.0-11.0) Red Blood Count 5.03 x10^6/uL (4.30-5.70) Hemoglobin 12.2 g/dL (13.0-17.5) Hematocrit 38.8 % (39.0-53.0) Mean Corpuscular Volume 77 fL (79-100) Mean Corpuscular Hemoglobin 24 pg (25-35) Mean Corpuscular Hemoglobin Concent 32 g/dL (31-37) Red Cell Distribution Width 14.8 % (11.5-14.5) Platelet Count 214 x10^3/uL (140-400) Neutrophils (%) (Auto) 41 % (31-73) Lymphocytes (%) (Auto) 18 % (24-48) Monocytes (%) (Auto) 10 % (0-9) Eosinophils (%) (Auto) 30 % (0-3) Basophils (%) (Auto) 1 % (0-3) Neutrophils # (Auto) 2.5 x10^3uL (1.8-7.7) Lymphocytes # (Auto) 1.1 x10^3/uL (1.0-4.8) Monocytes # (Auto) 0.6 x10^3/uL (0.0-1.1) Eosinophils # (Auto) 1.8 x10^3/uL (0.0-0.7) Basophils # (Auto) 0.0 x10^3/uL (0.0-0.2) Sodium Level 132 mmol/L (136-145) Potassium Level 5.9 mmol/L (3.5-5.1) Chloride Level 99 mmol/L (98-107) Carbon Dioxide Level 27 mmol/L (21-32) Anion Gap 6 (6-14) Blood Urea Nitrogen 18 mg/dL (8-26) Creatinine 0.7 mg/dL (0.7-1.3) Estimated GFR (Cockcroft-Gault) 113.9 Glucose Level 90 mg/dL (70-99) Calcium Level 8.8 mg/dL (8.5-10.1) Microbiology 07/02/18 Blood Culture - Final, Complete NO GROWTH AFTER 5 DAYS 07/05/18 CSF Gram Stain - Final, Complete Medications Current Medications Sodium Chloride 1,000 ml @ 1,000 mls/hr 1X ONCE IV Last administered on at 10:00; Start 07/02/18 at 10:00; Stop 07/02/18 at 10:59; Status DC Lorazepam (Ativan) 0.5 mg 1X ONCE IV Last administered on 07/02/18at 12:12; Start 07/02/18 at 12:30; Stop 07/02/18 at 12:31; Status DC Aspirin (Children'S Aspirin) 324 mg 1X ONCE PO Last administered on 07/02/18at 13:18; Start 07/02/18 at 13:30; Stop 07/02/18 at 13:31; Status DC Acetaminophen (Tylenol) 650 mg PRN Q4HRS PRN PO FEVER; Start 07/02/18 at 14:30 ; Stop 07/02/18 at 18:38; Status DC Lorazepam (Ativan) 2 mg PRN Q4HRS PRN IV ANXIETY/AGITATION/ETOH WITHDRL Last administered on 07/07/18at 03:20; Start 07/02/18 at 15:30 Levetiracetam 750 mg/Dextrose 107.5 ml @ 420 mls/hr Q12HR IV Last administered on 07/03/18at 09:35; Start 07/02/18 at 16:30; Stop 07/03/18 at 14:17 ; Status DC Sodium Chloride (Normal Saline Flush 3ml) 3 ml QSHIFT PRN IV AFTER MEDS AND BLOOD DRAWS; Start 07/02/18 at 15:45 Sodium Chloride 1,000 ml @ 100 mls/hr Q10H IV Last administered on 07/02/18at 16:04; Start 07/02/18 at 16:30; Stop 07/04/18 at 16:37; Status DC Ondansetron HCl (Zofran) 4 mg PRN Q4HRS PRN IV NAUSEA/VOMITING; Start 07/02/18 at 15:45 Zolpidem Tartrate (Ambien) 5 mg PRN QHS PRN PO INSOMNIA; Start 07/02/18 at 15: 45 Acetaminophen (Tylenol) 650 mg PRN Q4HRS PRN PO TEMP OVER 100.4F OR MILD PAIN; Start 07/02/18 at 15:45 Al Hydroxide/Mg Hydroxide (Mylanta Plus Xs) 30 ml PRN DAILY PRN PO HEARTBURN / GAS; Start 07/02/18 at 15:45 Clonidine HCl (Catapres) 0.1 mg PRN Q6HRS PRN PO SBP>160 OR DBP>90; Start 07/02 at 15:45 Sodium Monofluorophosphate (Fleet Adult) 133 ml PRN DAILY PRN DC CONSTIPATION; Start 07/02/18 at 15:45 Diphenhydramine HCl (Benadryl) 25 mg PRN Q4HRS PRN IVP ITCHING; Start 07/02/18 at 15:45 Docusate Sodium (Colace) 100 mg PRN BID PRN PO CONSTIPATION; Start 07/02/18 at 15:45 Albuterol Sulfate (Ventolin Neb Soln) 2.5 mg PRN Q4HRS PRN NEB SHORTNESS OF BREATH; Start 07/02/18 at 15:45 Guaifenesin (Robitussin) 200 mg PRN Q4HRS PRN PO COUGH; Start 07/02/18 at 15:45 Lorazepam (Ativan) 0.5 mg PRN Q4HRS PRN PO ANXIETY / AGITATION; Start 07/02/18 at 15:45 Enoxaparin Sodium (Lovenox 40mg Syringe) 40 mg DAILY SQ Last administered on 08:07; Start 07/03/18 at 09:00 Hydralazine HCl (Apresoline Inj) 10 mg PRN Q4HRS PRN IVP ELEVATED BP, SEE COMMENTS Last administered on 07/04/18at 14:20; Start 07/02/18 at 16:45 Nitroglycerin (Nitro-Bid Oint) 0.5 inch Q6HRS TP Last administered on 07/11/18 05:54; Start 07/02/18 at 17:30 Aspirin (Children'S Aspirin) 81 mg DAILY PO Last administered on 07/11/18 08:04 ; Start 07/03/18 at 09:00 Lorazepam (Ativan) 2 mg PRN Q4HRS PRN IV ALCOHOL WITHDRAWAL; Start 07/02/18 at 18:30; Status Cancel Cefepime HCl (Maxipime) 2 gm Q8HRS IVP Last administered on 07/04/18at 14:00; Start 07/03/18 at 14:30; Stop 07/04/18 at 18:56; Status DC Acyclovir Sodium 730 mg/Dextrose 264.6 ml @ 264.6 mls/ hr Q8HRS IV Last administered on 07/04/18 05:07; Start 07/03/18 at 15:00; Stop 07/04/18 at 12:26 ; Status DC Vancomycin HCl (Vanco Per Pharmacy) 1 each PRN DAILY PRN MC SEE COMMENTS Last administered on 07/04/18at 12:31; Start 07/03/18 at 14:15; Stop 07/04/18 at 18:56 ; Status DC Ampicillin Sodium 2 gm/Sodium Chloride 100 ml @ 200 mls/hr Q4HRS IV Last administered on 07/04/18 16:24; Start 07/03/18 at 16:00; Stop 07/04/18 at 18:56 ; Status DC Vancomycin HCl 1.5 gm/Sodium Chloride 500 ml @ 250 mls/hr 1X ONCE IV Last administered on 07/03/18at 17:54; Start 07/03/18 at 15:00; Stop 07/03/18 at 16:59 ; Status DC Levetiracetam 500 mg/Dextrose 105 ml @ 420 mls/hr Q12HR IV Last administered on 07/07/18at 09:55; Start 07/03/18 at 21:00; Stop 07/07/18 at 11:46; Status DC Divalproex Sodium (Depakote) 500 mg BID PO ; Start 07/03/18 at 21:00; Stop 07/04 at 16:20; Status DC Vancomycin HCl 1 gm/Sodium Chloride 250 ml @ 250 mls/hr Q12H IV Last administered on 07/04/18at 18:45; Start 07/04/18 at 06:00; Stop 07/04/18 at 18:58 ; Status DC Vancomycin HCl (Vancomycin Trough Level) 1 each 1X ONCE MC ; Start 07/05/18 at 05:30; Stop 07/05/18 at 05:31; Status Cancel Amino Acids/ Glycerin/ Electrolytes 1,000 ml @ 80 mls/hr [id number] IV Last administered on 07/11/18at 03:30; Start 07/03/18 at 19:15 Acyclovir Sodium 620 mg/Dextrose 262.4 ml @ 262.4 mls/ hr Q8HRS IV Last administered on 07/05/18at 05:05; Start 07/04/18 at 14:00; Stop 07/05/18 at 13:59 ; Status DC Lactobacillus Rhamnosus (Culturelle) 1 cap BID PO Last administered on at 08:05; Start 07/04/18 at 21:00 Valproic Acid 500 mg/Dextrose 55 ml @ 55 mls/hr Q8HRS IV Last administered on at 06:05; Start 07/04/18 at 17:00; Stop 07/10/18 at 12:12; Status DC Acyclovir Sodium 620 mg/Dextrose 112.4 ml @ 112.4 mls/ hr Q8HRS IV Last administered on 07/06/18at 05:19; Start 07/05/18 at 14:00; Stop 07/06/18 at 13:52 ; Status DC Cefepime HCl (Maxipime) 1 gm Q8HRS IVP Last administered on 07/08/18at 05:47; Start 07/04/18 at 22:00; Stop 07/08/18 at 09:20; Status DC Iohexol (Omnipaque 350 Mg/ml) 75 ml 1X ONCE IV Last administered on 07/05/18at 11:45; Start 07/05/18 at 11:15; Stop 07/05/18 at 11:16; Status DC Info (CONTRAST GIVEN -- Rx MONITORING) 1 each PRN DAILY PRN MC SEE COMMENTS; Start 07/05/18 at 11:30; Stop 07/07/18 at 11:29; Status DC Carbamazepine (TEGretol) 200 mg BID PO Last administered on 07/11/18at 08:05; Start 07/07/18 at 21:00 Ceftriaxone Sodium (Rocephin) 2 gm Q24H IVP Last administered on 07/09/18at 08:02 ; Start 07/08/18 at 10:00; Stop 07/09/18 at 11:51; Status DC Penicillin G Potassium [id number] unit/Dextrose 100 ml @ 100 mls/hr Q4HRS IV Last administered on 07/11/18at 11:34; Start 07/09/18 at 12:00 Barium Sulfate (Varibar Thin Liquid Apple) 148 gm 1X ONCE PO Last administered on 07/09/18at 13:53; Start 07/09/18 at 13:00; Stop 07/09/18 at 13:01; Status DC Active Scripts Active Reported Zithromax (Azithromycin) 500 Mg Tablet 1 Tab PO DAILY Aspirin 81 Mg Tab.chew 81 Mg PO DAILY Hydrocodone-Apap 5-325 (Hydrocodone Bit/Acetaminophen) 1 Tab Tablet 1 Tab PO PRN Q6HRS PRN Vitals/I & O Vital Sign - Last 24 Hours 07/10/18 07/10/18 07/10/18 07/10/18 15:00 17:23 19:00 20:00 Temp 97.6 97.3 97.6 97.3 Pulse 61 61 56 Resp 18 14 B/P (MAP) 109/70 (83) 109/70 105/66 (79) Pulse Ox 98 O2 Delivery Room Air Room Air Room Air 07/10/18 07/11/18 07/11/18 07/11/18 23:00 00:06 00:22 03:00 Temp 98.3 98.3 97.9 98.3 98.3 97.9 Pulse 58 58 58 59 Resp 14 14 16 B/P (MAP) 126/57 (80) 126/57 (80) 126/57 153/63 (93) Pulse Ox 100 100 97 O2 Delivery Room Air Room Air Room Air 07/11/18 07/11/18 07/11/18 07/11/18 05:54 07:00 08:00 11:00 Temp 98.4 98.7 98.4 98.7 Pulse 59 58 53 Resp 18 18 B/P (MAP) 153/63 158/57 (90) 95/50 (65) Pulse Ox 96 96 O2 Delivery Room Air 07/11/18 12:00 Pulse 53 B/P (MAP) 95/50 Intake and Output 07/10/18 07/10/18 07/11/18 15:00 23:00 07:00 Intake Total 25 ml 335 ml 220 ml Output Total 50 ml 550 ml Balance 25 ml 285 ml -330 ml MY OTT MD Jul 11, 2018 14:21
[2018-07-11 19:00] VITALS: BP 167/76
[2018-07-11] MEDS: PROBENECID PO SCH (20:03)
[2018-07-11 23:00] VITALS: BP 156/85
[2018-07-12] MEDS: DEXTROSE 5% IV SCH ×6 (01:03→21:15)
[2018-07-12] MEDS: PENICILLIN K IV SCH ×6 (01:03→21:15)
[2018-07-12 03:00] VITALS: BP 145/80
[2018-07-12] MEDS: AMINO AC 3%/ELECTROLYTE/GLYCER 1,000 ML IV SCH ×2 (03:48→14:44)
[2018-07-12 05:40] LABS: BASO % 0 % (0-3); EOS # 1.5 x10^3/uL (0.0-0.7); EOS % 22 % (0-3); HEMOGLOBIN 13.8 g/dL (13.0-17.5); LYMPH # 1.2 x10^3/uL (1.0-4.8); LYMPH % 18 % (24-48); MEAN CORPUSCULAR HEMOGLOBIN 25 pg (25-35); MEAN CORPUSCULAR HGB CONC 32 g/dL (31-37); MEAN CORPUSCULAR VOLUME 76 fL (79-100); MONO # 0.6 x10^3/uL (0.0-1.1); MONO % 9 % (0-9); NEUT # 3.6 x10^3uL (1.8-7.7); NEUT % 51 % (31-73); PLATELET COUNT 257 x10^3/uL (140-400); RED BLOOD COUNT 5.63 x10^6/uL (4.30-5.70); RED CELL DISTRIBUTION WIDTH 14.7 % (11.5-14.5)
[2018-07-12] MEDS: NITROGLYCERIN OINT 1 GM PACKET. TP SCH ×4 (05:47→17:14)
[2018-07-12 06:04] LABS: CALCIUM 9.3 mg/dL (8.5-10.1); CREATININE 0.7 mg/dL (0.7-1.3); GFR 113.9; POTASSIUM 4.7 mmol/L (3.5-5.1)
[2018-07-12 07:00] VITALS: BP 161/64
--- NOTE | 2018-07-12 08:30 | PDOC ---
Infectious Disease Note Subjective Subjective Sleepy again but awakens easily states ok No fevers last 24 hours Vital Sign Vital Signs Vital Signs Date Time Temp Pulse Resp B/P (MAP) Pulse Ox O2 Delivery O2 Flow Rate FiO2 07/12/18 05:47 67 145/80 07/12/18 03:00 96.0 16 95 Room Air 96.0 Physical Exam PHYSICAL EXAM GENERAL: Propped up in bed. Much more alert NAD - answering some questions HEENT: Pupils equally round, Oral mucosa dry, build up secretions, poor dentition NECK: Supple. LUNGS: Clear HEART: S1 and S2. ABDOMEN: Soft, no grimace or guarding to palpation, BS present EXTREMITIES: No edema and no cyanosis. SKIN: Warm and dry. No generalized rash. 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 understanding of Urdu. Persist Left hand contractions today PICC RUE - clean Labs Lab Laboratory Tests Test 07/12/18 05:17 White Blood Count 7.0 x10^3/uL (4.0-11.0) Red Blood Count 5.63 x10^6/uL (4.30-5.70) Hemoglobin 13.8 g/dL (13.0-17.5) Hematocrit 43.0 % (39.0-53.0) Mean Corpuscular Volume 76 fL (79-100) Mean Corpuscular Hemoglobin 25 pg (25-35) Mean Corpuscular Hemoglobin Concent 32 g/dL (31-37) Red Cell Distribution Width 14.7 % (11.5-14.5) Platelet Count 257 x10^3/uL (140-400) Neutrophils (%) (Auto) 51 % (31-73) Lymphocytes (%) (Auto) 18 % (24-48) Monocytes (%) (Auto) 9 % (0-9) Eosinophils (%) (Auto) 22 % (0-3) Basophils (%) (Auto) 0 % (0-3) Neutrophils # (Auto) 3.6 x10^3uL (1.8-7.7) Lymphocytes # (Auto) 1.2 x10^3/uL (1.0-4.8) Monocytes # (Auto) 0.6 x10^3/uL (0.0-1.1) Eosinophils # (Auto) 1.5 x10^3/uL (0.0-0.7) Basophils # (Auto) 0.0 x10^3/uL (0.0-0.2) Sodium Level 136 mmol/L (136-145) Potassium Level 4.7 mmol/L (3.5-5.1) Chloride Level 101 mmol/L (98-107) Carbon Dioxide Level 27 mmol/L (21-32) Anion Gap 8 (6-14) Blood Urea Nitrogen 16 mg/dL (8-26) Creatinine 0.7 mg/dL (0.7-1.3) Estimated GFR (Cockcroft-Gault) 113.9 Glucose Level 104 mg/dL (70-99) Calcium Level 9.3 mg/dL (8.5-10.1) Micro Microbiology 07/02/18 Blood Culture - Final, Complete NO GROWTH AFTER 5 DAYS 07/05/18 CSF Gram Stain - Final, Complete Objective Assessment 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 chorea like movements documented before Neurosyphilis + VDRL. RPR 1:16. HIV - neg TB spot indeterminate Encephalopathy - more alert today ? if Cefepime was playing into it - Unable to obtain MRI as the patient has metallic fragments in the floor of the left maxillary sinus. -s/p LP: CSF WBC 0, glucose 61, T protein 61.1. VDRL pending -HSV PCR negative; HIV nonreactive Status epilepticus. on Keppra Hypertensive encephalopathy. History of incarceration more than 20 years ago. Diabetes. Peripheral vascular disease. Left nephrectomy. Aspiration Pneumonitis Smoking Plan Plan of Care Await Neuro follow up Cont PCN 4 million q 4. will consider Rocephin day one so will need treatment with last dose 07/20. This will complete 10 to 14 days of treatment. Could begin po Probenicid 500 mg po QID as it it available in the Pharmacy (d/w pharmacy) and add daily IM procaine PCN injections 2.4 million units to complete 14 days until 07/20 if discharged but given L hand contractures would monitor given his seizure history and potential lowering of seizure threshold with PCN He will need a repeat CSF VDRL in 3 mos to 6 mos and VDRL should be nonreactive or will require retreatment Will need repeat TB spot in a few month Maintain aspiration precaution. Neurology following Oral care D/w nursing D/w CHET Singletary MD Jul 12, 2018 08:30
[2018-07-12] MEDS: LACTOBACILLUS RHAMNOSUS GG 1 CAPSULE. PO SCH ×2 (09:24→21:16)
[2018-07-12] MEDS: PROBENECID PO SCH ×4 (09:24→21:16)
[2018-07-12] MEDS: ASPIRIN CHEWABLE 81 MG TABLET. PO SCH (09:24)
[2018-07-12] MEDS: carBAMazepine 200 MG TABLET PO SCH ×2 (09:24→21:16)
[2018-07-12] MEDS: ENOXAPARIN 40 MG/0.4 ML SYRINGE. SQ SCH (09:24)
--- NOTE | 2018-07-12 11:05 | PDOC ---
PROGRESS NOTES Assessment Problems Medical Problems: (1) Elevated troponin Status: Acute (2) Tremor Status: Acute Status epilepticus, controlled on 07/02/18. Complex focal seizure Repeat electroencephalogram negative for seizure activity Metabolic encephalopathy. Hypertensive encephalopathy. Hypertensive emergency, BP 214/112 mmHg. 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 Treponema Pallidum Ab positive. 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 Note negative urine drug screen Plan Tegretol 200 mg bid No brain MRI due to metallic objects at the floor of the left maxillary sinus. Treat medical diseases. Consulted ID, agree with plans. BP control. Speech therapy following Will need long-term placement. Subjective Denies pain, indicates he wants to eat Objective Vital Signs Date Time Temp Pulse Resp B/P (MAP) Pulse Ox O2 Delivery O2 Flow Rate FiO2 07/12/18 07:00 98.3 61 16 161/64 (96) 96 Room Air 98.3 Intake and Output 07/12/18 07:00 Intake Total 1540 ml Balance 1540 ml Intake Oral 240 ml IV Total 1300 ml # Voids 6 # Bowel Movements 1 PHYSICAL EXAM More alert, knows that he is in the hospital, does not know date, does follow some commands. Speech limited by language barrier PERRL. EOMI. CN: no focal findings. Muscle tone: normal. Muscle strength: 4/5 DTR: 2+ Plantar reflex: flexor Gait: not examined in bed. Sensory exam: no abnormal findings. No cerebellar signs elicited. I do observe some myoclonic movements of the left arm Review of Relevant I have reviewed the following items kendrick (where applicable) has been applied. Labs Laboratory Tests Test 07/11/18 05:00 07/12/18 05:17 White Blood Count 6.1 x10^3/uL (4.0-11.0) 7.0 x10^3/uL (4.0-11.0) Red Blood Count 5.03 x10^6/uL (4.30-5.70) 5.63 x10^6/uL (4.30-5.70) Hemoglobin 12.2 g/dL (13.0-17.5) 13.8 g/dL (13.0-17.5) Hematocrit 38.8 % (39.0-53.0) 43.0 % (39.0-53.0) Mean Corpuscular Volume 77 fL (79-100) 76 fL (79-100) Mean Corpuscular Hemoglobin 24 pg (25-35) 25 pg (25-35) Mean Corpuscular Hemoglobin Concent 32 g/dL (31-37) 32 g/dL (31-37) Red Cell Distribution Width 14.8 % (11.5-14.5) 14.7 % (11.5-14.5) Platelet Count 214 x10^3/uL (140-400) 257 x10^3/uL (140-400) Neutrophils (%) (Auto) 41 % (31-73) 51 % (31-73) Lymphocytes (%) (Auto) 18 % (24-48) 18 % (24-48) Monocytes (%) (Auto) 10 % (0-9) 9 % (0-9) Eosinophils (%) (Auto) 30 % (0-3) 22 % (0-3) Basophils (%) (Auto) 1 % (0-3) 0 % (0-3) Neutrophils # (Auto) 2.5 x10^3uL (1.8-7.7) 3.6 x10^3uL (1.8-7.7) Lymphocytes # (Auto) 1.1 x10^3/uL (1.0-4.8) 1.2 x10^3/uL (1.0-4.8) Monocytes # (Auto) 0.6 x10^3/uL (0.0-1.1) 0.6 x10^3/uL (0.0-1.1) Eosinophils # (Auto) 1.8 x10^3/uL (0.0-0.7) 1.5 x10^3/uL (0.0-0.7) Basophils # (Auto) 0.0 x10^3/uL (0.0-0.2) 0.0 x10^3/uL (0.0-0.2) Sodium Level 132 mmol/L (136-145) 136 mmol/L (136-145) Potassium Level 5.9 mmol/L (3.5-5.1) 4.7 mmol/L (3.5-5.1) Chloride Level 99 mmol/L (98-107) 101 mmol/L (98-107) Carbon Dioxide Level 27 mmol/L (21-32) 27 mmol/L (21-32) Anion Gap 6 (6-14) 8 (6-14) Blood Urea Nitrogen 18 mg/dL (8-26) 16 mg/dL (8-26) Creatinine 0.7 mg/dL (0.7-1.3) 0.7 mg/dL (0.7-1.3) Estimated GFR (Cockcroft-Gault) 113.9 113.9 Glucose Level 90 mg/dL (70-99) 104 mg/dL (70-99) Calcium Level 8.8 mg/dL (8.5-10.1) 9.3 mg/dL (8.5-10.1) Laboratory Tests Test 07/12/18 05:17 White Blood Count 7.0 x10^3/uL (4.0-11.0) Red Blood Count 5.63 x10^6/uL (4.30-5.70) Hemoglobin 13.8 g/dL (13.0-17.5) Hematocrit 43.0 % (39.0-53.0) Mean Corpuscular Volume 76 fL (79-100) Mean Corpuscular Hemoglobin 25 pg (25-35) Mean Corpuscular Hemoglobin Concent 32 g/dL (31-37) Red Cell Distribution Width 14.7 % (11.5-14.5) Platelet Count 257 x10^3/uL (140-400) Neutrophils (%) (Auto) 51 % (31-73) Lymphocytes (%) (Auto) 18 % (24-48) Monocytes (%) (Auto) 9 % (0-9) Eosinophils (%) (Auto) 22 % (0-3) Basophils (%) (Auto) 0 % (0-3) Neutrophils # (Auto) 3.6 x10^3uL (1.8-7.7) Lymphocytes # (Auto) 1.2 x10^3/uL (1.0-4.8) Monocytes # (Auto) 0.6 x10^3/uL (0.0-1.1) Eosinophils # (Auto) 1.5 x10^3/uL (0.0-0.7) Basophils # (Auto) 0.0 x10^3/uL (0.0-0.2) Sodium Level 136 mmol/L (136-145) Potassium Level 4.7 mmol/L (3.5-5.1) Chloride Level 101 mmol/L (98-107) Carbon Dioxide Level 27 mmol/L (21-32) Anion Gap 8 (6-14) Blood Urea Nitrogen 16 mg/dL (8-26) Creatinine 0.7 mg/dL (0.7-1.3) Estimated GFR (Cockcroft-Gault) 113.9 Glucose Level 104 mg/dL (70-99) Calcium Level 9.3 mg/dL (8.5-10.1) Microbiology 07/02/18 Blood Culture - Final, Complete NO GROWTH AFTER 5 DAYS 07/05/18 CSF Gram Stain - Final, Complete Medications Current Medications Sodium Chloride 1,000 ml @ 1,000 mls/hr 1X ONCE IV Last administered on at 10:00; Start 07/02/18 at 10:00; Stop 07/02/18 at 10:59; Status DC Lorazepam (Ativan) 0.5 mg 1X ONCE IV Last administered on 07/02/18at 12:12; Start 07/02/18 at 12:30; Stop 07/02/18 at 12:31; Status DC Aspirin (Children'S Aspirin) 324 mg 1X ONCE PO Last administered on 07/02/18at 13:18; Start 07/02/18 at 13:30; Stop 07/02/18 at 13:31; Status DC Acetaminophen (Tylenol) 650 mg PRN Q4HRS PRN PO FEVER; Start 07/02/18 at 14:30 ; Stop 07/02/18 at 18:38; Status DC Lorazepam (Ativan) 2 mg PRN Q4HRS PRN IV ANXIETY/AGITATION/ETOH WITHDRL Last administered on 07/07/18at 03:20; Start 07/02/18 at 15:30 Levetiracetam 750 mg/Dextrose 107.5 ml @ 420 mls/hr Q12HR IV Last administered on 07/03/18at 09:35; Start 07/02/18 at 16:30; Stop 07/03/18 at 14:17 ; Status DC Sodium Chloride (Normal Saline Flush 3ml) 3 ml QSHIFT PRN IV AFTER MEDS AND BLOOD DRAWS; Start 07/02/18 at 15:45 Sodium Chloride 1,000 ml @ 100 mls/hr Q10H IV Last administered on 07/02/18at 16:04; Start 07/02/18 at 16:30; Stop 07/04/18 at 16:37; Status DC Ondansetron HCl (Zofran) 4 mg PRN Q4HRS PRN IV NAUSEA/VOMITING; Start 07/02/18 at 15:45 Zolpidem Tartrate (Ambien) 5 mg PRN QHS PRN PO INSOMNIA; Start 07/02/18 at 15: 45 Acetaminophen (Tylenol) 650 mg PRN Q4HRS PRN PO TEMP OVER 100.4F OR MILD PAIN; Start 07/02/18 at 15:45 Al Hydroxide/Mg Hydroxide (Mylanta Plus Xs) 30 ml PRN DAILY PRN PO HEARTBURN / GAS; Start 07/02/18 at 15:45 Clonidine HCl (Catapres) 0.1 mg PRN Q6HRS PRN PO SBP>160 OR DBP>90; Start 07/02 at 15:45 Sodium Monofluorophosphate (Fleet Adult) 133 ml PRN DAILY PRN ME CONSTIPATION; Start 07/02/18 at 15:45 Diphenhydramine HCl (Benadryl) 25 mg PRN Q4HRS PRN IVP ITCHING; Start 07/02/18 at 15:45 Docusate Sodium (Colace) 100 mg PRN BID PRN PO CONSTIPATION; Start 07/02/18 at 15:45 Albuterol Sulfate (Ventolin Neb Soln) 2.5 mg PRN Q4HRS PRN NEB SHORTNESS OF BREATH; Start 07/02/18 at 15:45 Guaifenesin (Robitussin) 200 mg PRN Q4HRS PRN PO COUGH; Start 07/02/18 at 15:45 Lorazepam (Ativan) 0.5 mg PRN Q4HRS PRN PO ANXIETY / AGITATION; Start 07/02/18 at 15:45 Enoxaparin Sodium (Lovenox 40mg Syringe) 40 mg DAILY SQ Last administered on 07/12/18at 09:24; Start 07/03/18 at 09:00 Hydralazine HCl (Apresoline Inj) 10 mg PRN Q4HRS PRN IVP ELEVATED BP, SEE COMMENTS Last administered on 07/04/18 14:20; Start 07/02/18 at 16:45 Nitroglycerin (Nitro-Bid Oint) 0.5 inch Q6HRS TP Last administered on 07/12/18 05:47; Start 07/02/18 at 17:30 Aspirin (Children'S Aspirin) 81 mg DAILY PO Last administered on 07/12/18 09:24 ; Start 07/03/18 at 09:00 Lorazepam (Ativan) 2 mg PRN Q4HRS PRN IV ALCOHOL WITHDRAWAL; Start 07/02/18 at 18:30; Status Cancel Cefepime HCl (Maxipime) 2 gm Q8HRS IVP Last administered on 07/04/18 14:00; Start 07/03/18 at 14:30; Stop 07/04/18 at 18:56; Status DC Acyclovir Sodium 730 mg/Dextrose 264.6 ml @ 264.6 mls/ hr Q8HRS IV Last administered on 07/04/18 05:07; Start 07/03/18 at 15:00; Stop 07/04/18 at 12:26 ; Status DC Vancomycin HCl (Vanco Per Pharmacy) 1 each PRN DAILY PRN MC SEE COMMENTS Last administered on 07/04/18 12:31; Start 07/03/18 at 14:15; Stop 07/04/18 at 18:56 ; Status DC Ampicillin Sodium 2 gm/Sodium Chloride 100 ml @ 200 mls/hr Q4HRS IV Last administered on 07/04/18 16:24; Start 07/03/18 at 16:00; Stop 07/04/18 at 18:56 ; Status DC Vancomycin HCl 1.5 gm/Sodium Chloride 500 ml @ 250 mls/hr 1X ONCE IV Last administered on 07/03/18 17:54; Start 07/03/18 at 15:00; Stop 07/03/18 at 16:59 ; Status DC Levetiracetam 500 mg/Dextrose 105 ml @ 420 mls/hr Q12HR IV Last administered on 07/07/18 09:55; Start 07/03/18 at 21:00; Stop 07/07/18 at 11:46; Status DC Divalproex Sodium (Depakote) 500 mg BID PO ; Start 07/03/18 at 21:00; Stop 07/04 at 16:20; Status DC Vancomycin HCl 1 gm/Sodium Chloride 250 ml @ 250 mls/hr Q12H IV Last administered on 07/04/18at 18:45; Start 07/04/18 at 06:00; Stop 07/04/18 at 18:58 ; Status DC Vancomycin HCl (Vancomycin Trough Level) 1 each 1X ONCE MC ; Start 07/05/18 at 05:30; Stop 07/05/18 at 05:31; Status Cancel Amino Acids/ Glycerin/ Electrolytes 1,000 ml @ 80 mls/hr [id number] IV Last administered on 07/12/18at 03:48; Start 07/03/18 at 19:15 Acyclovir Sodium 620 mg/Dextrose 262.4 ml @ 262.4 mls/ hr Q8HRS IV Last administered on 07/05/18at 05:05; Start 07/04/18 at 14:00; Stop 07/05/18 at 13:59 ; Status DC Lactobacillus Rhamnosus (Culturelle) 1 cap BID PO Last administered on at 09:24; Start 07/04/18 at 21:00 Valproic Acid 500 mg/Dextrose 55 ml @ 55 mls/hr Q8HRS IV Last administered on at 06:05; Start 07/04/18 at 17:00; Stop 07/10/18 at 12:12; Status DC Acyclovir Sodium 620 mg/Dextrose 112.4 ml @ 112.4 mls/ hr Q8HRS IV Last administered on 07/06/18at 05:19; Start 07/05/18 at 14:00; Stop 07/06/18 at 13:52 ; Status DC Cefepime HCl (Maxipime) 1 gm Q8HRS IVP Last administered on 07/08/18at 05:47; Start 07/04/18 at 22:00; Stop 07/08/18 at 09:20; Status DC Iohexol (Omnipaque 350 Mg/ml) 75 ml 1X ONCE IV Last administered on 07/05/18at 11:45; Start 07/05/18 at 11:15; Stop 07/05/18 at 11:16; Status DC Info (CONTRAST GIVEN -- Rx MONITORING) 1 each PRN DAILY PRN MC SEE COMMENTS; Start 07/05/18 at 11:30; Stop 07/07/18 at 11:29; Status DC Carbamazepine (TEGretol) 200 mg BID PO Last administered on 07/12/18 09:24; Start 07/07/18 at 21:00 Ceftriaxone Sodium (Rocephin) 2 gm Q24H IVP Last administered on 07/09/18at 08:02 ; Start 07/08/18 at 10:00; Stop 07/09/18 at 11:51; Status DC Penicillin G Potassium [id number] unit/Dextrose 100 ml @ 100 mls/hr Q4HRS IV Last administered on 07/12/18 08:26; Start 07/09/18 at 12:00 Barium Sulfate (Varibar Thin Liquid Apple) 148 gm 1X ONCE PO Last administered on 07/09/18at 13:53; Start 07/09/18 at 13:00; Stop 07/09/18 at 13:01; Status DC Non-Formulary Medication 1 ea QID PO Last administered on 07/12/18at 09:24; Start 07/11/18 at 21:00 Active Scripts Active Reported Zithromax (Azithromycin) 500 Mg Tablet 1 Tab PO DAILY Aspirin 81 Mg Tab.chew 81 Mg PO DAILY Hydrocodone-Apap 5-325 (Hydrocodone Bit/Acetaminophen) 1 Tab Tablet 1 Tab PO PRN Q6HRS PRN Vitals/I & O Vital Sign - Last 24 Hours 07/11/18 07/11/18 07/11/18 07/11/18 12:00 17:52 19:00 23:00 Temp 97.9 97.9 97.9 97.9 Pulse 53 53 59 57 Resp 16 16 B/P (MAP) 95/50 95/50 167/76 (106) 156/85 (108) Pulse Ox 96 96 O2 Delivery Room Air Room Air 07/12/18 07/12/18 07/12/18 03:00 05:47 07:00 Temp 96.0 98.3 96.0 98.3 Pulse 67 67 61 Resp 16 16 B/P (MAP) 145/80 (101) 145/80 161/64 (96) Pulse Ox 95 96 O2 Delivery Room Air Room Air Intake and Output 07/11/18 07/11/18 07/12/18 15:00 23:00 07:00 Intake Total 220 ml 220 ml 1100 ml Balance 220 ml 220 ml 1100 ml MY OTT MD Jul 12, 2018 11:05
--- NOTE | 2018-07-12 12:02 | PDOC ---
PROGRESS NOTES Chief Complaint Chief Complaint Encephalopathy, likely metabolic, hx not obtainable from pt. Unable to obtain MRI as the patient has metallic fragments in the floor of the left maxillary sinus. Status epilepticus - Complex focal seizures on 07/02/2016. Hypertensive encephalopathy Acute neurosyphilis - TPPA positive, syphilis unknown status, RPR still pending , HIV negative, Acute hepatitis panel neg History of incarceration more than 20 years ago. Diabetes 2 Peripheral vascular disease. Smoking. Left nephrectomy. Peripheral arterial disease. Gastroesophageal reflux disease. 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 Dementia, (?)tertiary syphilis on tx History of Present Illness History of Present Illness Pt resting comfortably in bed this morning Easy to arouse this morning, mumbling responses to questioning- Italian speaking Left hand and arm jerks intermittently Vitals Vitals Vital Signs Date Time Temp Pulse Resp B/P (MAP) Pulse Ox O2 Delivery O2 Flow Rate FiO2 07/12/18 07:00 98.3 61 16 161/64 (96) 96 Room Air 98.3 Physical Exam General: Alert, No acute distress, Other (mumbling responses to question, easy to arrouse, left arm and hand fasiculations, pleasantly confused) Heart: Regular rate, Normal S1, Normal S2, No murmurs Lungs: Clear, Other (airway patent, normal respiratory effort, no crackles or wheezing) Abdomen: Normal bowel sounds, Soft, No tenderness, No hepatosplenomegaly, No masses Extremities: No clubbing, No cyanosis, No edema, Other (Strong peripheral pulses 3+, PICC RUE) Skin: No rashes, No breakdown, No significant lesion Labs LABS Laboratory Tests Test 07/12/18 05:17 White Blood Count 7.0 x10^3/uL (4.0-11.0) Red Blood Count 5.63 x10^6/uL (4.30-5.70) Hemoglobin 13.8 g/dL (13.0-17.5) Hematocrit 43.0 % (39.0-53.0) Mean Corpuscular Volume 76 fL (79-100) Mean Corpuscular Hemoglobin 25 pg (25-35) Mean Corpuscular Hemoglobin Concent 32 g/dL (31-37) Red Cell Distribution Width 14.7 % (11.5-14.5) Platelet Count 257 x10^3/uL (140-400) Neutrophils (%) (Auto) 51 % (31-73) Lymphocytes (%) (Auto) 18 % (24-48) Monocytes (%) (Auto) 9 % (0-9) Eosinophils (%) (Auto) 22 % (0-3) Basophils (%) (Auto) 0 % (0-3) Neutrophils # (Auto) 3.6 x10^3uL (1.8-7.7) Lymphocytes # (Auto) 1.2 x10^3/uL (1.0-4.8) Monocytes # (Auto) 0.6 x10^3/uL (0.0-1.1) Eosinophils # (Auto) 1.5 x10^3/uL (0.0-0.7) Basophils # (Auto) 0.0 x10^3/uL (0.0-0.2) Sodium Level 136 mmol/L (136-145) Potassium Level 4.7 mmol/L (3.5-5.1) Chloride Level 101 mmol/L (98-107) Carbon Dioxide Level 27 mmol/L (21-32) Anion Gap 8 (6-14) Blood Urea Nitrogen 16 mg/dL (8-26) Creatinine 0.7 mg/dL (0.7-1.3) Estimated GFR (Cockcroft-Gault) 113.9 Glucose Level 104 mg/dL (70-99) Calcium Level 9.3 mg/dL (8.5-10.1) Review of Systems Review of Systems Denies pain, No N/V, no F/C Assessment and Plan Assessmemt and Plan Assessment: Hypertensive encephalopathy Acute neurosyphilis - TPPA positive, syphilis unknown status, RPR still pending , HIV negative, Acute hepatitis panel neg History of incarceration more than 20 years ago. Diabetes 2 Peripheral vascular disease. Smoking. Left nephrectomy. Peripheral arterial disease. Gastroesophageal reflux disease. 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 Labs Laboratory Tests Test 07/11/18 05:00 07/12/18 05:17 White Blood Count 6.1 x10^3/uL (4.0-11.0) 7.0 x10^3/uL (4.0-11.0) Red Blood Count 5.03 x10^6/uL (4.30-5.70) 5.63 x10^6/uL (4.30-5.70) Hemoglobin 12.2 g/dL (13.0-17.5) 13.8 g/dL (13.0-17.5) Hematocrit 38.8 % (39.0-53.0) 43.0 % (39.0-53.0) Mean Corpuscular Volume 77 fL (79-100) 76 fL (79-100) Mean Corpuscular Hemoglobin 24 pg (25-35) 25 pg (25-35) Mean Corpuscular Hemoglobin Concent 32 g/dL (31-37) 32 g/dL (31-37) Red Cell Distribution Width 14.8 % (11.5-14.5) 14.7 % (11.5-14.5) Platelet Count 214 x10^3/uL (140-400) 257 x10^3/uL (140-400) Neutrophils (%) (Auto) 41 % (31-73) 51 % (31-73) Lymphocytes (%) (Auto) 18 % (24-48) 18 % (24-48) Monocytes (%) (Auto) 10 % (0-9) 9 % (0-9) Eosinophils (%) (Auto) 30 % (0-3) 22 % (0-3) Basophils (%) (Auto) 1 % (0-3) 0 % (0-3) Neutrophils # (Auto) 2.5 x10^3uL (1.8-7.7) 3.6 x10^3uL (1.8-7.7) Lymphocytes # (Auto) 1.1 x10^3/uL (1.0-4.8) 1.2 x10^3/uL (1.0-4.8) Monocytes # (Auto) 0.6 x10^3/uL (0.0-1.1) 0.6 x10^3/uL (0.0-1.1) Eosinophils # (Auto) 1.8 x10^3/uL (0.0-0.7) 1.5 x10^3/uL (0.0-0.7) Basophils # (Auto) 0.0 x10^3/uL (0.0-0.2) 0.0 x10^3/uL (0.0-0.2) Sodium Level 132 mmol/L (136-145) 136 mmol/L (136-145) Potassium Level 5.9 mmol/L (3.5-5.1) 4.7 mmol/L (3.5-5.1) Chloride Level 99 mmol/L (98-107) 101 mmol/L (98-107) Carbon Dioxide Level 27 mmol/L (21-32) 27 mmol/L (21-32) Anion Gap 6 (6-14) 8 (6-14) Blood Urea Nitrogen 18 mg/dL (8-26) 16 mg/dL (8-26) Creatinine 0.7 mg/dL (0.7-1.3) 0.7 mg/dL (0.7-1.3) Estimated GFR (Cockcroft-Gault) 113.9 113.9 Glucose Level 90 mg/dL (70-99) 104 mg/dL (70-99) Calcium Level 8.8 mg/dL (8.5-10.1) 9.3 mg/dL (8.5-10.1) Laboratory Tests Test 07/12/18 05:17 White Blood Count 7.0 x10^3/uL (4.0-11.0) Red Blood Count 5.63 x10^6/uL (4.30-5.70) Hemoglobin 13.8 g/dL (13.0-17.5) Hematocrit 43.0 % (39.0-53.0) Mean Corpuscular Volume 76 fL (79-100) Mean Corpuscular Hemoglobin 25 pg (25-35) Mean Corpuscular Hemoglobin Concent 32 g/dL (31-37) Red Cell Distribution Width 14.7 % (11.5-14.5) Platelet Count 257 x10^3/uL (140-400) Neutrophils (%) (Auto) 51 % (31-73) Lymphocytes (%) (Auto) 18 % (24-48) Monocytes (%) (Auto) 9 % (0-9) Eosinophils (%) (Auto) 22 % (0-3) Basophils (%) (Auto) 0 % (0-3) Neutrophils # (Auto) 3.6 x10^3uL (1.8-7.7) Lymphocytes # (Auto) 1.2 x10^3/uL (1.0-4.8) Monocytes # (Auto) 0.6 x10^3/uL (0.0-1.1) Eosinophils # (Auto) 1.5 x10^3/uL (0.0-0.7) Basophils # (Auto) 0.0 x10^3/uL (0.0-0.2) Sodium Level 136 mmol/L (136-145) Potassium Level 4.7 mmol/L (3.5-5.1) Chloride Level 101 mmol/L (98-107) Carbon Dioxide Level 27 mmol/L (21-32) Anion Gap 8 (6-14) Blood Urea Nitrogen 16 mg/dL (8-26) Creatinine 0.7 mg/dL (0.7-1.3) Estimated GFR (Cockcroft-Gault) 113.9 Glucose Level 104 mg/dL (70-99) Calcium Level 9.3 mg/dL (8.5-10.1) Microbiology 07/02/18 Blood Culture - Final, Complete NO GROWTH AFTER 5 DAYS 07/05/18 CSF Gram Stain - Final, Complete Medications Current Medications Sodium Chloride 1,000 ml @ 1,000 mls/hr 1X ONCE IV Last administered on at 10:00; Start 07/02/18 at 10:00; Stop 07/02/18 at 10:59; Status DC Lorazepam (Ativan) 0.5 mg 1X ONCE IV Last administered on 07/02/18at 12:12; Start 07/02/18 at 12:30; Stop 07/02/18 at 12:31; Status DC Aspirin (Children'S Aspirin) 324 mg 1X ONCE PO Last administered on 07/02/18at 13:18; Start 07/02/18 at 13:30; Stop 07/02/18 at 13:31; Status DC Acetaminophen (Tylenol) 650 mg PRN Q4HRS PRN PO FEVER; Start 07/02/18 at 14:30 ; Stop 07/02/18 at 18:38; Status DC Lorazepam (Ativan) 2 mg PRN Q4HRS PRN IV ANXIETY/AGITATION/ETOH WITHDRL Last administered on 07/07/18at 03:20; Start 07/02/18 at 15:30 Levetiracetam 750 mg/Dextrose 107.5 ml @ 420 mls/hr Q12HR IV Last administered on 07/03/18at 09:35; Start 07/02/18 at 16:30; Stop 07/03/18 at 14:17 ; Status DC Sodium Chloride (Normal Saline Flush 3ml) 3 ml QSHIFT PRN IV AFTER MEDS AND BLOOD DRAWS; Start 07/02/18 at 15:45 Sodium Chloride 1,000 ml @ 100 mls/hr Q10H IV Last administered on 07/02/18at 16:04; Start 07/02/18 at 16:30; Stop 07/04/18 at 16:37; Status DC Ondansetron HCl (Zofran) 4 mg PRN Q4HRS PRN IV NAUSEA/VOMITING; Start 07/02/18 at 15:45 Zolpidem Tartrate (Ambien) 5 mg PRN QHS PRN PO INSOMNIA; Start 07/02/18 at 15: 45 Acetaminophen (Tylenol) 650 mg PRN Q4HRS PRN PO TEMP OVER 100.4F OR MILD PAIN; Start 07/02/18 at 15:45 Al Hydroxide/Mg Hydroxide (Mylanta Plus Xs) 30 ml PRN DAILY PRN PO HEARTBURN / GAS; Start 07/02/18 at 15:45 Clonidine HCl (Catapres) 0.1 mg PRN Q6HRS PRN PO SBP>160 OR DBP>90; Start 07/02 at 15:45 Sodium Monofluorophosphate (Fleet Adult) 133 ml PRN DAILY PRN AR CONSTIPATION; Start 07/02/18 at 15:45 Diphenhydramine HCl (Benadryl) 25 mg PRN Q4HRS PRN IVP ITCHING; Start 07/02/18 at 15:45 Docusate Sodium (Colace) 100 mg PRN BID PRN PO CONSTIPATION; Start 07/02/18 at 15:45 Albuterol Sulfate (Ventolin Neb Soln) 2.5 mg PRN Q4HRS PRN NEB SHORTNESS OF BREATH; Start 07/02/18 at 15:45 Guaifenesin (Robitussin) 200 mg PRN Q4HRS PRN PO COUGH; Start 07/02/18 at 15:45 Lorazepam (Ativan) 0.5 mg PRN Q4HRS PRN PO ANXIETY / AGITATION; Start 07/02/18 at 15:45 Enoxaparin Sodium (Lovenox 40mg Syringe) 40 mg DAILY SQ Last administered on 07/12/18at 09:24; Start 07/03/18 at 09:00 Hydralazine HCl (Apresoline Inj) 10 mg PRN Q4HRS PRN IVP ELEVATED BP, SEE COMMENTS Last administered on 07/04/18at 14:20; Start 07/02/18 at 16:45 Nitroglycerin (Nitro-Bid Oint) 0.5 inch Q6HRS TP Last administered on 07/12/18at 05:47; Start 07/02/18 at 17:30 Aspirin (Children'S Aspirin) 81 mg DAILY PO Last administered on 07/12/18at 09:24 ; Start 07/03/18 at 09:00 Lorazepam (Ativan) 2 mg PRN Q4HRS PRN IV ALCOHOL WITHDRAWAL; Start 07/02/18 at 18:30; Status Cancel Cefepime HCl (Maxipime) 2 gm Q8HRS IVP Last administered on 07/04/18at 14:00; Start 07/03/18 at 14:30; Stop 07/04/18 at 18:56; Status DC Acyclovir Sodium 730 mg/Dextrose 264.6 ml @ 264.6 mls/ hr Q8HRS IV Last administered on 07/04/18at 05:07; Start 07/03/18 at 15:00; Stop 07/04/18 at 12:26 ; Status DC Vancomycin HCl (Vanco Per Pharmacy) 1 each PRN DAILY PRN MC SEE COMMENTS Last administered on 07/04/18at 12:31; Start 07/03/18 at 14:15; Stop 07/04/18 at 18:56 ; Status DC Ampicillin Sodium 2 gm/Sodium Chloride 100 ml @ 200 mls/hr Q4HRS IV Last administered on 07/04/18at 16:24; Start 07/03/18 at 16:00; Stop 07/04/18 at 18:56 ; Status DC Vancomycin HCl 1.5 gm/Sodium Chloride 500 ml @ 250 mls/hr 1X ONCE IV Last administered on 07/03/18at 17:54; Start 07/03/18 at 15:00; Stop 07/03/18 at 16:59 ; Status DC Levetiracetam 500 mg/Dextrose 105 ml @ 420 mls/hr Q12HR IV Last administered on 07/07/18at 09:55; Start 07/03/18 at 21:00; Stop 07/07/18 at 11:46; Status DC Divalproex Sodium (Depakote) 500 mg BID PO ; Start 07/03/18 at 21:00; Stop 07/04 at 16:20; Status DC Vancomycin HCl 1 gm/Sodium Chloride 250 ml @ 250 mls/hr Q12H IV Last administered on 07/04/18at 18:45; Start 07/04/18 at 06:00; Stop 07/04/18 at 18:58 ; Status DC Vancomycin HCl (Vancomycin Trough Level) 1 each 1X ONCE MC ; Start 07/05/18 at 05:30; Stop 07/05/18 at 05:31; Status Cancel Amino Acids/ Glycerin/ Electrolytes 1,000 ml @ 80 mls/hr [id number] IV Last administered on 07/12/18at 03:48; Start 07/03/18 at 19:15 Acyclovir Sodium 620 mg/Dextrose 262.4 ml @ 262.4 mls/ hr Q8HRS IV Last administered on 07/05/18at 05:05; Start 07/04/18 at 14:00; Stop 07/05/18 at 13:59 ; Status DC Lactobacillus Rhamnosus (Culturelle) 1 cap BID PO Last administered on at 09:24; Start 07/04/18 at 21:00 Valproic Acid 500 mg/Dextrose 55 ml @ 55 mls/hr Q8HRS IV Last administered on at 06:05; Start 07/04/18 at 17:00; Stop 07/10/18 at 12:12; Status DC Acyclovir Sodium 620 mg/Dextrose 112.4 ml @ 112.4 mls/ hr Q8HRS IV Last administered on 07/06/18 05:19; Start 07/05/18 at 14:00; Stop 07/06/18 at 13:52 ; Status DC Cefepime HCl (Maxipime) 1 gm Q8HRS IVP Last administered on 07/08/18at 05:47; Start 07/04/18 at 22:00; Stop 07/08/18 at 09:20; Status DC Iohexol (Omnipaque 350 Mg/ml) 75 ml 1X ONCE IV Last administered on 07/05/18at 11:45; Start 07/05/18 at 11:15; Stop 07/05/18 at 11:16; Status DC Info (CONTRAST GIVEN -- Rx MONITORING) 1 each PRN DAILY PRN MC SEE COMMENTS; Start 07/05/18 at 11:30; Stop 07/07/18 at 11:29; Status DC Carbamazepine (TEGretol) 200 mg BID PO Last administered on 07/12/18 09:24; Start 07/07/18 at 21:00 Ceftriaxone Sodium (Rocephin) 2 gm Q24H IVP Last administered on 07/09/18 08:02 ; Start 07/08/18 at 10:00; Stop 07/09/18 at 11:51; Status DC Penicillin G Potassium [id number] unit/Dextrose 100 ml @ 100 mls/hr Q4HRS IV Last administered on 07/12/18 08:26; Start 07/09/18 at 12:00 Barium Sulfate (Varibar Thin Liquid Apple) 148 gm 1X ONCE PO Last administered on 07/09/18at 13:53; Start 07/09/18 at 13:00; Stop 07/09/18 at 13:01; Status DC Non-Formulary Medication 1 ea QID PO Last administered on 07/12/18 09:24; Start 07/11/18 at 21:00 Active Scripts Active Reported Zithromax (Azithromycin) 500 Mg Tablet 1 Tab PO DAILY Aspirin 81 Mg Tab.chew 81 Mg PO DAILY Hydrocodone-Apap 5-325 (Hydrocodone Bit/Acetaminophen) 1 Tab Tablet 1 Tab PO PRN Q6HRS PRN Vitals/I & O Vital Sign - Last 24 Hours 07/11/18 07/11/18 07/11/18 07/11/18 12:00 17:52 19:00 23:00 Temp 97.9 97.9 97.9 97.9 Pulse 53 53 59 57 Resp 16 16 B/P (MAP) 95/50 95/50 167/76 (106) 156/85 (108) Pulse Ox 96 96 O2 Delivery Room Air Room Air 07/12/18 07/12/18 07/12/18 03:00 05:47 07:00 Temp 96.0 98.3 96.0 98.3 Pulse 67 67 61 Resp 16 16 B/P (MAP) 145/80 (101) 145/80 161/64 (96) Pulse Ox 95 96 O2 Delivery Room Air Room Air Intake and Output 07/11/18 07/11/18 07/12/18 15:00 23:00 07:00 Intake Total 220 ml 220 ml 1100 ml Balance 220 ml 220 ml 1100 ml Nutrition Consultation Dietary Evaluation: Recommendations by RD: PPN/TPN Comments: d/c ppn > 10 days continue diet per CLOSING COORDINATOR w/ supplements- encourage po intake Expected Outcomes/Goals: new goal 07/11: to meet > 75% est nutr need via po intake Interpretation of weight loss: >7.5% in 3 months Malnutrition Findings: Weight Status: Appropriate RICK MOREJON III DO Jul 12, 2018 12:02
--- NOTE | 2018-07-12 12:58 | NUR ---
SANDOVAL following pt. SANDOVAL left a voice mail to pt's friends, Chelsie to discuss dc plan. SANDOVAL spoke with Yareli Lyons who reported he is 'pt's friend of a friend'. Yareli is not sure if pt is a [place] citizen and reported pt does not have children to his knowledge. Will continue to follow.
[2018-07-12 15:00] VITALS: BP 144/60
[2018-07-12 19:00] VITALS: BP 179/77
[2018-07-12] MEDS: LORazepam 0.5 MG TABLET PO PRN (21:16)
[2018-07-12 23:01] VITALS: BP 154/62
[2018-07-13] MEDS: NITROGLYCERIN OINT 1 GM PACKET. TP SCH ×6 (00:14→23:40)
[2018-07-13] MEDS: DEXTROSE 5% IV SCH ×7 (00:14→23:40)
[2018-07-13] MEDS: PENICILLIN K IV SCH ×7 (00:14→23:40)
[2018-07-13 03:01] VITALS: BP 158/65
[2018-07-13] MEDS: AMINO AC 3%/ELECTROLYTE/GLYCER 1,000 ML IV SCH ×2 (04:29→16:58)
[2018-07-13 04:32] LABS: BASO # 0.1 x10^3/uL (0.0-0.2); BASO % 1 % (0-3); EOS # 1.7 x10^3/uL (0.0-0.7); EOS % 21 % (0-3); HEMOGLOBIN 13.9 g/dL (13.0-17.5); LYMPH # 1.7 x10^3/uL (1.0-4.8); LYMPH % 21 % (24-48); MEAN CORPUSCULAR HEMOGLOBIN 25 pg (25-35); MEAN CORPUSCULAR HGB CONC 32 g/dL (31-37); MEAN CORPUSCULAR VOLUME 77 fL (79-100); MONO # 0.8 x10^3/uL (0.0-1.1); MONO % 10 % (0-9); NEUT # 3.8 x10^3uL (1.8-7.7); NEUT % 47 % (31-73); PLATELET COUNT 253 x10^3/uL (140-400); RED BLOOD COUNT 5.62 x10^6/uL (4.30-5.70); RED CELL DISTRIBUTION WIDTH 14.8 % (11.5-14.5); WHITE BLOOD COUNT 8.1 x10^3/uL (4.0-11.0)
[2018-07-13 04:57] LABS: CALCIUM 9.6 mg/dL (8.5-10.1); CREATININE 0.8 mg/dL (0.7-1.3); GFR 97.6; POTASSIUM 4.6 mmol/L (3.5-5.1)
[2018-07-13 07:00] VITALS: BP 150/69
--- NOTE | 2018-07-13 07:32 | PDOC ---
PROGRESS NOTES Chief Complaint Chief Complaint Encephalopathy, likely metabolic, hx not obtainable from pt. Unable to obtain MRI as the patient has metallic fragments in the floor of the left maxillary sinus. Status epilepticus - Complex focal seizures on 07/02/2016. Hypertensive encephalopathy Acute neurosyphilis - TPPA positive, syphilis unknown status, RPR still pending , HIV negative, Acute hepatitis panel neg History of incarceration more than 20 years ago. Diabetes 2 Peripheral vascular disease. Smoking. Left nephrectomy. Peripheral arterial disease. Gastroesophageal reflux disease. 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 Will d/w neuro. As his ability to complete syphilis treatment outpatient cannot be guaranteed he will need some sort of placement at least for the next 2 weeks. Vitals Vitals Vital Signs Date Time Temp Pulse Resp B/P (MAP) Pulse Ox O2 Delivery O2 Flow Rate FiO2 07/13/18 06:26 61 158/65 07/13/18 03:01 97.6 20 99 Room Air 97.6 Physical Exam General: Alert, No acute distress, Other (mumbling responses to question, easy to arrouse, left arm and hand fasiculations, pleasantly confused) Heart: Regular rate, Normal S1, Normal S2, No murmurs Lungs: Clear, Other (airway patent, normal respiratory effort, no crackles or wheezing) Abdomen: Normal bowel sounds, Soft, No tenderness, No hepatosplenomegaly, No masses Extremities: No clubbing, No cyanosis, No edema, Other (Strong peripheral pulses 3+, PICC RUE) Skin: No rashes, No breakdown, No significant lesion Labs LABS Laboratory Tests Test 07/13/18 03:25 White Blood Count 8.1 x10^3/uL (4.0-11.0) Red Blood Count 5.62 x10^6/uL (4.30-5.70) Hemoglobin 13.9 g/dL (13.0-17.5) Hematocrit 43.0 % (39.0-53.0) Mean Corpuscular Volume 77 fL (79-100) Mean Corpuscular Hemoglobin 25 pg (25-35) Mean Corpuscular Hemoglobin Concent 32 g/dL (31-37) Red Cell Distribution Width 14.8 % (11.5-14.5) Platelet Count 253 x10^3/uL (140-400) Neutrophils (%) (Auto) 47 % (31-73) Lymphocytes (%) (Auto) 21 % (24-48) Monocytes (%) (Auto) 10 % (0-9) Eosinophils (%) (Auto) 21 % (0-3) Basophils (%) (Auto) 1 % (0-3) Neutrophils # (Auto) 3.8 x10^3uL (1.8-7.7) Lymphocytes # (Auto) 1.7 x10^3/uL (1.0-4.8) Monocytes # (Auto) 0.8 x10^3/uL (0.0-1.1) Eosinophils # (Auto) 1.7 x10^3/uL (0.0-0.7) Basophils # (Auto) 0.1 x10^3/uL (0.0-0.2) Sodium Level 139 mmol/L (136-145) Potassium Level 4.6 mmol/L (3.5-5.1) Chloride Level 102 mmol/L (98-107) Carbon Dioxide Level 28 mmol/L (21-32) Anion Gap 9 (6-14) Blood Urea Nitrogen 17 mg/dL (8-26) Creatinine 0.8 mg/dL (0.7-1.3) Estimated GFR (Cockcroft-Gault) 97.6 Glucose Level 105 mg/dL (70-99) Calcium Level 9.6 mg/dL (8.5-10.1) Assessment and Plan Assessmemt and Plan Problems Medical Problems: (1) Elevated troponin Status: Acute (2) Tremor Status: Acute Comment Review of Relevant I have reviewed the following items kendrick (where applicable) has been applied. Labs Laboratory Tests Test 07/12/18 05:17 07/13/18 03:25 White Blood Count 7.0 x10^3/uL (4.0-11.0) 8.1 x10^3/uL (4.0-11.0) Red Blood Count 5.63 x10^6/uL (4.30-5.70) 5.62 x10^6/uL (4.30-5.70) Hemoglobin 13.8 g/dL (13.0-17.5) 13.9 g/dL (13.0-17.5) Hematocrit 43.0 % (39.0-53.0) 43.0 % (39.0-53.0) Mean Corpuscular Volume 76 fL (79-100) 77 fL (79-100) Mean Corpuscular Hemoglobin 25 pg (25-35) 25 pg (25-35) Mean Corpuscular Hemoglobin Concent 32 g/dL (31-37) 32 g/dL (31-37) Red Cell Distribution Width 14.7 % (11.5-14.5) 14.8 % (11.5-14.5) Platelet Count 257 x10^3/uL (140-400) 253 x10^3/uL (140-400) Neutrophils (%) (Auto) 51 % (31-73) 47 % (31-73) Lymphocytes (%) (Auto) 18 % (24-48) 21 % (24-48) Monocytes (%) (Auto) 9 % (0-9) 10 % (0-9) Eosinophils (%) (Auto) 22 % (0-3) 21 % (0-3) Basophils (%) (Auto) 0 % (0-3) 1 % (0-3) Neutrophils # (Auto) 3.6 x10^3uL (1.8-7.7) 3.8 x10^3uL (1.8-7.7) Lymphocytes # (Auto) 1.2 x10^3/uL (1.0-4.8) 1.7 x10^3/uL (1.0-4.8) Monocytes # (Auto) 0.6 x10^3/uL (0.0-1.1) 0.8 x10^3/uL (0.0-1.1) Eosinophils # (Auto) 1.5 x10^3/uL (0.0-0.7) 1.7 x10^3/uL (0.0-0.7) Basophils # (Auto) 0.0 x10^3/uL (0.0-0.2) 0.1 x10^3/uL (0.0-0.2) Sodium Level 136 mmol/L (136-145) 139 mmol/L (136-145) Potassium Level 4.7 mmol/L (3.5-5.1) 4.6 mmol/L (3.5-5.1) Chloride Level 101 mmol/L (98-107) 102 mmol/L (98-107) Carbon Dioxide Level 27 mmol/L (21-32) 28 mmol/L (21-32) Anion Gap 8 (6-14) 9 (6-14) Blood Urea Nitrogen 16 mg/dL (8-26) 17 mg/dL (8-26) Creatinine 0.7 mg/dL (0.7-1.3) 0.8 mg/dL (0.7-1.3) Estimated GFR (Cockcroft-Gault) 113.9 97.6 Glucose Level 104 mg/dL (70-99) 105 mg/dL (70-99) Calcium Level 9.3 mg/dL (8.5-10.1) 9.6 mg/dL (8.5-10.1) Laboratory Tests Test 07/13/18 03:25 White Blood Count 8.1 x10^3/uL (4.0-11.0) Red Blood Count 5.62 x10^6/uL (4.30-5.70) Hemoglobin 13.9 g/dL (13.0-17.5) Hematocrit 43.0 % (39.0-53.0) Mean Corpuscular Volume 77 fL (79-100) Mean Corpuscular Hemoglobin 25 pg (25-35) Mean Corpuscular Hemoglobin Concent 32 g/dL (31-37) Red Cell Distribution Width 14.8 % (11.5-14.5) Platelet Count 253 x10^3/uL (140-400) Neutrophils (%) (Auto) 47 % (31-73) Lymphocytes (%) (Auto) 21 % (24-48) Monocytes (%) (Auto) 10 % (0-9) Eosinophils (%) (Auto) 21 % (0-3) Basophils (%) (Auto) 1 % (0-3) Neutrophils # (Auto) 3.8 x10^3uL (1.8-7.7) Lymphocytes # (Auto) 1.7 x10^3/uL (1.0-4.8) Monocytes # (Auto) 0.8 x10^3/uL (0.0-1.1) Eosinophils # (Auto) 1.7 x10^3/uL (0.0-0.7) Basophils # (Auto) 0.1 x10^3/uL (0.0-0.2) Sodium Level 139 mmol/L (136-145) Potassium Level 4.6 mmol/L (3.5-5.1) Chloride Level 102 mmol/L (98-107) Carbon Dioxide Level 28 mmol/L (21-32) Anion Gap 9 (6-14) Blood Urea Nitrogen 17 mg/dL (8-26) Creatinine 0.8 mg/dL (0.7-1.3) Estimated GFR (Cockcroft-Gault) 97.6 Glucose Level 105 mg/dL (70-99) Calcium Level 9.6 mg/dL (8.5-10.1) Microbiology 07/02/18 Blood Culture - Final, Complete NO GROWTH AFTER 5 DAYS 07/05/18 CSF Gram Stain - Final, Complete Medications Current Medications Sodium Chloride 1,000 ml @ 1,000 mls/hr 1X ONCE IV Last administered on at 10:00; Start 07/02/18 at 10:00; Stop 07/02/18 at 10:59; Status DC Lorazepam (Ativan) 0.5 mg 1X ONCE IV Last administered on 07/02/18at 12:12; Start 07/02/18 at 12:30; Stop 07/02/18 at 12:31; Status DC Aspirin (Children'S Aspirin) 324 mg 1X ONCE PO Last administered on 07/02/18at 13:18; Start 07/02/18 at 13:30; Stop 07/02/18 at 13:31; Status DC Acetaminophen (Tylenol) 650 mg PRN Q4HRS PRN PO FEVER; Start 07/02/18 at 14:30 ; Stop 07/02/18 at 18:38; Status DC Lorazepam (Ativan) 2 mg PRN Q4HRS PRN IV ANXIETY/AGITATION/ETOH WITHDRL Last administered on 07/12/18at 21:28; Start 07/02/18 at 15:30 Levetiracetam 750 mg/Dextrose 107.5 ml @ 420 mls/hr Q12HR IV Last administered on 07/03/18at 09:35; Start 07/02/18 at 16:30; Stop 07/03/18 at 14:17 ; Status DC Sodium Chloride (Normal Saline Flush 3ml) 3 ml QSHIFT PRN IV AFTER MEDS AND BLOOD DRAWS; Start 07/02/18 at 15:45 Sodium Chloride 1,000 ml @ 100 mls/hr Q10H IV Last administered on 07/02/18at 16:04; Start 07/02/18 at 16:30; Stop 07/04/18 at 16:37; Status DC Ondansetron HCl (Zofran) 4 mg PRN Q4HRS PRN IV NAUSEA/VOMITING; Start 07/02/18 at 15:45 Zolpidem Tartrate (Ambien) 5 mg PRN QHS PRN PO INSOMNIA; Start 07/02/18 at 15: 45 Acetaminophen (Tylenol) 650 mg PRN Q4HRS PRN PO TEMP OVER 100.4F OR MILD PAIN; Start 07/02/18 at 15:45 Al Hydroxide/Mg Hydroxide (Mylanta Plus Xs) 30 ml PRN DAILY PRN PO HEARTBURN / GAS; Start 07/02/18 at 15:45 Clonidine HCl (Catapres) 0.1 mg PRN Q6HRS PRN PO SBP>160 OR DBP>90; Start 07/02 at 15:45 Sodium Monofluorophosphate (Fleet Adult) 133 ml PRN DAILY PRN [place] CONSTIPATION; Start 07/02/18 at 15:45 Diphenhydramine HCl (Benadryl) 25 mg PRN Q4HRS PRN IVP ITCHING; Start 07/02/18 at 15:45 Docusate Sodium (Colace) 100 mg PRN BID PRN PO CONSTIPATION; Start 07/02/18 at 15:45 Albuterol Sulfate (Ventolin Neb Soln) 2.5 mg PRN Q4HRS PRN NEB SHORTNESS OF BREATH; Start 07/02/18 at 15:45 Guaifenesin (Robitussin) 200 mg PRN Q4HRS PRN PO COUGH; Start 07/02/18 at 15:45 Lorazepam (Ativan) 0.5 mg PRN Q4HRS PRN PO ANXIETY / AGITATION Last administered on 07/12/18 21:16; Start 07/02/18 at 15:45 Enoxaparin Sodium (Lovenox 40mg Syringe) 40 mg DAILY SQ Last administered on 09:24; Start 07/03/18 at 09:00 Hydralazine HCl (Apresoline Inj) 10 mg PRN Q4HRS PRN IVP ELEVATED BP, SEE COMMENTS Last administered on 07/04/18 14:20; Start 07/02/18 at 16:45 Nitroglycerin (Nitro-Bid Oint) 0.5 inch Q6HRS TP Last administered on 07/13/18 06:26; Start 07/02/18 at 17:30 Aspirin (Children'S Aspirin) 81 mg DAILY PO Last administered on 07/12/18 09:24 ; Start 07/03/18 at 09:00 Lorazepam (Ativan) 2 mg PRN Q4HRS PRN IV ALCOHOL WITHDRAWAL; Start 07/02/18 at 18:30; Status Cancel Cefepime HCl (Maxipime) 2 gm Q8HRS IVP Last administered on 07/04/18 14:00; Start 07/03/18 at 14:30; Stop 07/04/18 at 18:56; Status DC Acyclovir Sodium 730 mg/Dextrose 264.6 ml @ 264.6 mls/ hr Q8HRS IV Last administered on 07/04/18 05:07; Start 07/03/18 at 15:00; Stop 07/04/18 at 12:26 ; Status DC Vancomycin HCl (Vanco Per Pharmacy) 1 each PRN DAILY PRN MC SEE COMMENTS Last administered on 07/04/18 12:31; Start 07/03/18 at 14:15; Stop 07/04/18 at 18:56 ; Status DC Ampicillin Sodium 2 gm/Sodium Chloride 100 ml @ 200 mls/hr Q4HRS IV Last administered on 07/04/18 16:24; Start 07/03/18 at 16:00; Stop 07/04/18 at 18:56 ; Status DC Vancomycin HCl 1.5 gm/Sodium Chloride 500 ml @ 250 mls/hr 1X ONCE IV Last administered on 07/03/18 17:54; Start 07/03/18 at 15:00; Stop 07/03/18 at 16:59 ; Status DC Levetiracetam 500 mg/Dextrose 105 ml @ 420 mls/hr Q12HR IV Last administered on 07/07/18at 09:55; Start 07/03/18 at 21:00; Stop 07/07/18 at 11:46; Status DC Divalproex Sodium (Depakote) 500 mg BID PO ; Start 07/03/18 at 21:00; Stop 07/04 at 16:20; Status DC Vancomycin HCl 1 gm/Sodium Chloride 250 ml @ 250 mls/hr Q12H IV Last administered on 07/04/18at 18:45; Start 07/04/18 at 06:00; Stop 07/04/18 at 18:58 ; Status DC Vancomycin HCl (Vancomycin Trough Level) 1 each 1X ONCE MC ; Start 07/05/18 at 05:30; Stop 07/05/18 at 05:31; Status Cancel Amino Acids/ Glycerin/ Electrolytes 1,000 ml @ 80 mls/hr [id number] IV Last administered on 07/13/18at 04:29; Start 07/03/18 at 19:15 Acyclovir Sodium 620 mg/Dextrose 262.4 ml @ 262.4 mls/ hr Q8HRS IV Last administered on 07/05/18at 05:05; Start 07/04/18 at 14:00; Stop 07/05/18 at 13:59 ; Status DC Lactobacillus Rhamnosus (Culturelle) 1 cap BID PO Last administered on at 21:16; Start 07/04/18 at 21:00 Valproic Acid 500 mg/Dextrose 55 ml @ 55 mls/hr Q8HRS IV Last administered on at 06:05; Start 07/04/18 at 17:00; Stop 07/10/18 at 12:12; Status DC Acyclovir Sodium 620 mg/Dextrose 112.4 ml @ 112.4 mls/ hr Q8HRS IV Last administered on 07/06/18at 05:19; Start 07/05/18 at 14:00; Stop 07/06/18 at 13:52 ; Status DC Cefepime HCl (Maxipime) 1 gm Q8HRS IVP Last administered on 07/08/18at 05:47; Start 07/04/18 at 22:00; Stop 07/08/18 at 09:20; Status DC Iohexol (Omnipaque 350 Mg/ml) 75 ml 1X ONCE IV Last administered on 07/05/18 11:45; Start 07/05/18 at 11:15; Stop 07/05/18 at 11:16; Status DC Info (CONTRAST GIVEN -- Rx MONITORING) 1 each PRN DAILY PRN MC SEE COMMENTS; Start 07/05/18 at 11:30; Stop 07/07/18 at 11:29; Status DC Carbamazepine (TEGretol) 200 mg BID PO Last administered on 07/12/18 21:16; Start 07/07/18 at 21:00 Ceftriaxone Sodium (Rocephin) 2 gm Q24H IVP Last administered on 07/09/18at 08:02 ; Start 07/08/18 at 10:00; Stop 07/09/18 at 11:51; Status DC Penicillin G Potassium [id number] unit/Dextrose 100 ml @ 100 mls/hr Q4HRS IV Last administered on 07/13/18at 04:29; Start 07/09/18 at 12:00 Barium Sulfate (Varibar Thin Liquid Apple) 148 gm 1X ONCE PO Last administered on 07/09/18 13:53; Start 07/09/18 at 13:00; Stop 07/09/18 at 13:01; Status DC Non-Formulary Medication 1 ea QID PO Last administered on 07/12/18 21:16; Start 07/11/18 at 21:00 Active Scripts Active Reported Zithromax (Azithromycin) 500 Mg Tablet 1 Tab PO DAILY Aspirin 81 Mg Tab.chew 81 Mg PO DAILY Hydrocodone-Apap 5-325 (Hydrocodone Bit/Acetaminophen) 1 Tab Tablet 1 Tab PO PRN Q6HRS PRN Vitals/I & O Vital Sign - Last 24 Hours 07/12/18 07/12/18 07/12/18 07/12/18 08:00 11:00 11:53 15:00 Temp 97.6 97.3 97.6 97.3 Pulse 60 61 60 Resp 18 18 B/P (MAP) 161/64 144/60 (88) Pulse Ox 100 98 O2 Delivery Room Air Room Air Room Air 07/12/18 07/12/18 07/12/18 07/12/18 17:14 19:00 19:54 23:01 Temp 98.1 97.8 98.1 97.8 Pulse 60 56 57 Resp 20 20 B/P (MAP) 144/60 179/77 (111) 154/62 (92) Pulse Ox 98 98 O2 Delivery Room Air Room Air Room Air 07/13/18 07/13/18 07/13/18 00:14 03:01 06:26 Temp 97.6 97.6 Pulse 57 61 61 Resp 20 B/P (MAP) 154/62 158/65 (96) 158/65 Pulse Ox 99 O2 Delivery Room Air Intake and Output 07/12/18 07/12/18 07/13/18 15:00 23:00 07:00 Intake Total 1340 ml 220 ml 1200 ml Balance 1340 ml 220 ml 1200 ml Nutrition Consultation Dietary Evaluation: Recommendations by RD: PPN/TPN Comments: d/c ppn > 10 days continue diet per MACHINE SPECIALIST w/ supplements- encourage po intake Expected Outcomes/Goals: new goal 07/11: to meet > 75% est nutr need via po intake Interpretation of weight loss: >7.5% in 3 months Malnutrition Findings: Weight Status: Appropriate FAISAL BRIAN MD Jul 13, 2018 07:32
[2018-07-13] MEDS: ASPIRIN CHEWABLE 81 MG TABLET. PO SCH (09:07)
[2018-07-13] MEDS: LACTOBACILLUS RHAMNOSUS GG 1 CAPSULE. PO SCH ×2 (09:07→20:02)
[2018-07-13] MEDS: carBAMazepine 200 MG TABLET PO SCH ×2 (09:07→20:02)
[2018-07-13] MEDS: PROBENECID PO SCH ×4 (09:07→20:04)
[2018-07-13] MEDS: ENOXAPARIN 40 MG/0.4 ML SYRINGE. SQ SCH (09:08)
[2018-07-13 11:00] VITALS: BP 151/82
--- NOTE | 2018-07-13 11:05 | PDOC ---
Infectious Disease Note Subjective Subjective Awake earlier No fevers reported ROS ROS Unobtainable Vital Sign Vital Signs Vital Signs Date Time Temp Pulse Resp B/P (MAP) Pulse Ox O2 Delivery O2 Flow Rate FiO2 07/13/18 07:00 97.9 64 16 150/69 (96) 95 Room Air 97.9 Physical Exam PHYSICAL EXAM GENERAL: Propped up in bed, appears comfortable HEENT: Pupils equally round, Oral mucosa dry, poor dentition NECK: Supple. LUNGS: Clear HEART: S1 and S2. ABDOMEN: Soft, no grimace or guarding to palpation, BS present EXTREMITIES: No edema and no cyanosis. SKIN: Warm and dry. No generalized rash. 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: Noncommunicative PICC RUE - clean PIV Labs Lab Laboratory Tests Test 07/13/18 03:25 White Blood Count 8.1 x10^3/uL (4.0-11.0) Red Blood Count 5.62 x10^6/uL (4.30-5.70) Hemoglobin 13.9 g/dL (13.0-17.5) Hematocrit 43.0 % (39.0-53.0) Mean Corpuscular Volume 77 fL (79-100) Mean Corpuscular Hemoglobin 25 pg (25-35) Mean Corpuscular Hemoglobin Concent 32 g/dL (31-37) Red Cell Distribution Width 14.8 % (11.5-14.5) Platelet Count 253 x10^3/uL (140-400) Neutrophils (%) (Auto) 47 % (31-73) Lymphocytes (%) (Auto) 21 % (24-48) Monocytes (%) (Auto) 10 % (0-9) Eosinophils (%) (Auto) 21 % (0-3) Basophils (%) (Auto) 1 % (0-3) Neutrophils # (Auto) 3.8 x10^3uL (1.8-7.7) Lymphocytes # (Auto) 1.7 x10^3/uL (1.0-4.8) Monocytes # (Auto) 0.8 x10^3/uL (0.0-1.1) Eosinophils # (Auto) 1.7 x10^3/uL (0.0-0.7) Basophils # (Auto) 0.1 x10^3/uL (0.0-0.2) Sodium Level 139 mmol/L (136-145) Potassium Level 4.6 mmol/L (3.5-5.1) Chloride Level 102 mmol/L (98-107) Carbon Dioxide Level 28 mmol/L (21-32) Anion Gap 9 (6-14) Blood Urea Nitrogen 17 mg/dL (8-26) Creatinine 0.8 mg/dL (0.7-1.3) Estimated GFR (Cockcroft-Gault) 97.6 Glucose Level 105 mg/dL (70-99) Calcium Level 9.6 mg/dL (8.5-10.1) Micro 07/02/18 Blood Culture - Preliminary, Resulted NO GROWTH AFTER 34DAYS 07/05/18 CSF Gram Stain - Final, Complete GRAM STAIN,CSF Final WBCS NONE SEEN RBCS NONE SEEN ORGANISMS NONE SEEN AFB CULTURE GRAM STAIN Final Negative Objective Assessment LUE contractures, chorea like movements documented before Neurosyphilis + VDRL. RPR 1:16. HIV - neg TB spot indeterminate Encephalopathy - Unable to obtain MRI as the patient has metallic fragments in the floor of the left maxillary sinus. -s/p LP: CSF WBC 0, glucose 61, T protein 61.1. VDRL pending -HSV PCR negative; HIV nonreactive Status epilepticus. on Keppra Hypertensive encephalopathy. History of incarceration more than 20 years ago. Diabetes. Peripheral vascular disease. Left nephrectomy. Aspiration Pneumonitis Smoking Plan Plan of Care Cont PCN 4 million q 4. will consider Rocephin day one so will need treatment with last dose 07/20. This will complete 10 to 14 days of treatment. Could begin po Probenicid 500 mg po QID as it it available in the Pharmacy (d/w pharmacy) and add daily IM procaine PCN injections 2.4 million units to complete 14 days until 07/20 if discharged but given L hand contractures would monitor given his seizure history and potential lowering of seizure threshold with PCN He will need a repeat CSF VDRL in 3 mos to 6 mos and VDRL should be nonreactive or will require retreatment Will need repeat TB spot in a few month Maintain aspiration precaution. Neurology following Oral care Attending Co-Sign The patient was seen and interviewed as well as examined at the bedside. The chart was reviewed. The case was discussed. Agree with the plan of care. ALISA BOSCH APRN Jul 13, 2018 11:05 KAZ RAYO MD Jul 13, 2018 12:20
--- NOTE | 2018-07-13 14:19 | NUR ---
pt too lethargic for PO intake. 1300 med held
[2018-07-13 15:00] VITALS: BP 152/70
[2018-07-13 19:00] VITALS: BP 151/73
[2018-07-13 23:00] VITALS: BP 161/99
[2018-07-14 03:00] VITALS: BP 157/73
[2018-07-14] MEDS: PENICILLIN K IV SCH ×6 (04:19→23:42)
[2018-07-14] MEDS: AMINO AC 3%/ELECTROLYTE/GLYCER 1,000 ML IV SCH ×2 (04:19→16:48)
[2018-07-14] MEDS: DEXTROSE 5% IV SCH ×6 (04:19→23:42)
[2018-07-14 04:36] LABS: BASO # 0.1 x10^3/uL (0.0-0.2); BASO % 1 % (0-3); EOS # 1.4 x10^3/uL (0.0-0.7); EOS % 18 % (0-3); HEMATOCRIT 41.4 % (39.0-53.0); HEMOGLOBIN 13.3 g/dL (13.0-17.5); LYMPH # 1.8 x10^3/uL (1.0-4.8); LYMPH % 24 % (24-48); MEAN CORPUSCULAR HEMOGLOBIN 25 pg (25-35); MEAN CORPUSCULAR HGB CONC 32 g/dL (31-37); MEAN CORPUSCULAR VOLUME 77 fL (79-100); MONO # 0.7 x10^3/uL (0.0-1.1); MONO % 10 % (0-9); NEUT # 3.6 x10^3uL (1.8-7.7); NEUT % 47 % (31-73); PLATELET COUNT 259 x10^3/uL (140-400); RED BLOOD COUNT 5.39 x10^6/uL (4.30-5.70); RED CELL DISTRIBUTION WIDTH 15.1 % (11.5-14.5); WHITE BLOOD COUNT 7.7 x10^3/uL (4.0-11.0)
[2018-07-14 04:42] LABS: CALCIUM 9.1 mg/dL (8.5-10.1); CREATININE 0.9 mg/dL (0.7-1.3); GFR 85.2; POTASSIUM 4.6 mmol/L (3.5-5.1)
[2018-07-14] MEDS: NITROGLYCERIN OINT 1 GM PACKET. TP SCH ×4 (05:34→23:43)
[2018-07-14 07:00] VITALS: BP 133/73
--- NOTE | 2018-07-14 07:38 | PDOC ---
PROGRESS NOTES Chief Complaint Chief Complaint Encephalopathy, likely metabolic, hx not obtainable from pt. Unable to obtain MRI as the patient has metallic fragments in the floor of the left maxillary sinus. Status epilepticus - Complex focal seizures on 07/02/2016. Hypertensive encephalopathy Acute neurosyphilis - TPPA positive, syphilis unknown status, RPR still pending , HIV negative, Acute hepatitis panel neg History of incarceration more than 20 years ago. Diabetes 2 Peripheral vascular disease. Smoking. Left nephrectomy. Peripheral arterial disease. Gastroesophageal reflux disease. 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 Will d/w neuro. As his ability to complete syphilis treatment outpatient cannot be guaranteed he will need some sort of placement at least for the next 2 weeks. Vitals Vitals Vital Signs Date Time Temp Pulse Resp B/P (MAP) Pulse Ox O2 Delivery O2 Flow Rate FiO2 07/14/18 05:34 60 157/73 07/14/18 03:00 97.5 18 97 Room Air 97.5 Physical Exam Physical Exam GENERAL: Propped up in bed, appears comfortable HEENT: Pupils equally round, Oral mucosa dry, poor dentition NECK: Supple. LUNGS: Clear HEART: S1 and S2. ABDOMEN: Soft, no grimace or guarding to palpation, BS present EXTREMITIES: No edema and no cyanosis. SKIN: Warm and dry. No generalized rash. SURGICAL APPLIANCE FITTER: Noncommunicative PICC RUE - clean PIV General: Alert, No acute distress, Other (mumbling responses to question, easy to arrouse, left arm and hand fasiculations, pleasantly confused) Heart: Regular rate, Normal S1, Normal S2, No murmurs Lungs: Clear, Other (airway patent, normal respiratory effort, no crackles or wheezing) Abdomen: Normal bowel sounds, Soft, No tenderness, No hepatosplenomegaly, No masses Extremities: No clubbing, No cyanosis, No edema, Other (Strong peripheral pulses 3+, PICC RUE) Skin: No rashes, No breakdown, No significant lesion Labs LABS Laboratory Tests Test 07/14/18 04:15 White Blood Count 7.7 x10^3/uL (4.0-11.0) Red Blood Count 5.39 x10^6/uL (4.30-5.70) Hemoglobin 13.3 g/dL (13.0-17.5) Hematocrit 41.4 % (39.0-53.0) Mean Corpuscular Volume 77 fL (79-100) Mean Corpuscular Hemoglobin 25 pg (25-35) Mean Corpuscular Hemoglobin Concent 32 g/dL (31-37) Red Cell Distribution Width 15.1 % (11.5-14.5) Platelet Count 259 x10^3/uL (140-400) Neutrophils (%) (Auto) 47 % (31-73) Lymphocytes (%) (Auto) 24 % (24-48) Monocytes (%) (Auto) 10 % (0-9) Eosinophils (%) (Auto) 18 % (0-3) Basophils (%) (Auto) 1 % (0-3) Neutrophils # (Auto) 3.6 x10^3uL (1.8-7.7) Lymphocytes # (Auto) 1.8 x10^3/uL (1.0-4.8) Monocytes # (Auto) 0.7 x10^3/uL (0.0-1.1) Eosinophils # (Auto) 1.4 x10^3/uL (0.0-0.7) Basophils # (Auto) 0.1 x10^3/uL (0.0-0.2) Sodium Level 138 mmol/L (136-145) Potassium Level 4.6 mmol/L (3.5-5.1) Chloride Level 101 mmol/L (98-107) Carbon Dioxide Level 29 mmol/L (21-32) Anion Gap 8 (6-14) Blood Urea Nitrogen 17 mg/dL (8-26) Creatinine 0.9 mg/dL (0.7-1.3) Estimated GFR (Cockcroft-Gault) 85.2 Glucose Level 97 mg/dL (70-99) Calcium Level 9.1 mg/dL (8.5-10.1) Assessment and Plan Assessmemt and Plan Problems Medical Problems: (1) Elevated troponin Status: Acute (2) Tremor Status: Acute Comment Review of Relevant I have reviewed the following items kendrick (where applicable) has been applied. Labs Laboratory Tests Test 07/13/18 03:25 07/14/18 04:15 White Blood Count 8.1 x10^3/uL (4.0-11.0) 7.7 x10^3/uL (4.0-11.0) Red Blood Count 5.62 x10^6/uL (4.30-5.70) 5.39 x10^6/uL (4.30-5.70) Hemoglobin 13.9 g/dL (13.0-17.5) 13.3 g/dL (13.0-17.5) Hematocrit 43.0 % (39.0-53.0) 41.4 % (39.0-53.0) Mean Corpuscular Volume 77 fL (79-100) 77 fL (79-100) Mean Corpuscular Hemoglobin 25 pg (25-35) 25 pg (25-35) Mean Corpuscular Hemoglobin Concent 32 g/dL (31-37) 32 g/dL (31-37) Red Cell Distribution Width 14.8 % (11.5-14.5) 15.1 % (11.5-14.5) Platelet Count 253 x10^3/uL (140-400) 259 x10^3/uL (140-400) Neutrophils (%) (Auto) 47 % (31-73) 47 % (31-73) Lymphocytes (%) (Auto) 21 % (24-48) 24 % (24-48) Monocytes (%) (Auto) 10 % (0-9) 10 % (0-9) Eosinophils (%) (Auto) 21 % (0-3) 18 % (0-3) Basophils (%) (Auto) 1 % (0-3) 1 % (0-3) Neutrophils # (Auto) 3.8 x10^3uL (1.8-7.7) 3.6 x10^3uL (1.8-7.7) Lymphocytes # (Auto) 1.7 x10^3/uL (1.0-4.8) 1.8 x10^3/uL (1.0-4.8) Monocytes # (Auto) 0.8 x10^3/uL (0.0-1.1) 0.7 x10^3/uL (0.0-1.1) Eosinophils # (Auto) 1.7 x10^3/uL (0.0-0.7) 1.4 x10^3/uL (0.0-0.7) Basophils # (Auto) 0.1 x10^3/uL (0.0-0.2) 0.1 x10^3/uL (0.0-0.2) Sodium Level 139 mmol/L (136-145) 138 mmol/L (136-145) Potassium Level 4.6 mmol/L (3.5-5.1) 4.6 mmol/L (3.5-5.1) Chloride Level 102 mmol/L (98-107) 101 mmol/L (98-107) Carbon Dioxide Level 28 mmol/L (21-32) 29 mmol/L (21-32) Anion Gap 9 (6-14) 8 (6-14) Blood Urea Nitrogen 17 mg/dL (8-26) 17 mg/dL (8-26) Creatinine 0.8 mg/dL (0.7-1.3) 0.9 mg/dL (0.7-1.3) Estimated GFR (Cockcroft-Gault) 97.6 85.2 Glucose Level 105 mg/dL (70-99) 97 mg/dL (70-99) Calcium Level 9.6 mg/dL (8.5-10.1) 9.1 mg/dL (8.5-10.1) Laboratory Tests Test 07/14/18 04:15 White Blood Count 7.7 x10^3/uL (4.0-11.0) Red Blood Count 5.39 x10^6/uL (4.30-5.70) Hemoglobin 13.3 g/dL (13.0-17.5) Hematocrit 41.4 % (39.0-53.0) Mean Corpuscular Volume 77 fL (79-100) Mean Corpuscular Hemoglobin 25 pg (25-35) Mean Corpuscular Hemoglobin Concent 32 g/dL (31-37) Red Cell Distribution Width 15.1 % (11.5-14.5) Platelet Count 259 x10^3/uL (140-400) Neutrophils (%) (Auto) 47 % (31-73) Lymphocytes (%) (Auto) 24 % (24-48) Monocytes (%) (Auto) 10 % (0-9) Eosinophils (%) (Auto) 18 % (0-3) Basophils (%) (Auto) 1 % (0-3) Neutrophils # (Auto) 3.6 x10^3uL (1.8-7.7) Lymphocytes # (Auto) 1.8 x10^3/uL (1.0-4.8) Monocytes # (Auto) 0.7 x10^3/uL (0.0-1.1) Eosinophils # (Auto) 1.4 x10^3/uL (0.0-0.7) Basophils # (Auto) 0.1 x10^3/uL (0.0-0.2) Sodium Level 138 mmol/L (136-145) Potassium Level 4.6 mmol/L (3.5-5.1) Chloride Level 101 mmol/L (98-107) Carbon Dioxide Level 29 mmol/L (21-32) Anion Gap 8 (6-14) Blood Urea Nitrogen 17 mg/dL (8-26) Creatinine 0.9 mg/dL (0.7-1.3) Estimated GFR (Cockcroft-Gault) 85.2 Glucose Level 97 mg/dL (70-99) Calcium Level 9.1 mg/dL (8.5-10.1) Microbiology 07/02/18 Blood Culture - Final, Complete NO GROWTH AFTER 5 DAYS 07/05/18 CSF Gram Stain - Final, Complete Medications Current Medications Sodium Chloride 1,000 ml @ 1,000 mls/hr 1X ONCE IV Last administered on at 10:00; Start 07/02/18 at 10:00; Stop 07/02/18 at 10:59; Status DC Lorazepam (Ativan) 0.5 mg 1X ONCE IV Last administered on 07/02/18at 12:12; Start 07/02/18 at 12:30; Stop 07/02/18 at 12:31; Status DC Aspirin (Children'S Aspirin) 324 mg 1X ONCE PO Last administered on 07/02/18at 13:18; Start 07/02/18 at 13:30; Stop 07/02/18 at 13:31; Status DC Acetaminophen (Tylenol) 650 mg PRN Q4HRS PRN PO FEVER; Start 07/02/18 at 14:30 ; Stop 07/02/18 at 18:38; Status DC Lorazepam (Ativan) 2 mg PRN Q4HRS PRN IV ANXIETY/AGITATION/ETOH WITHDRL Last administered on 07/13/18at 17:14; Start 07/02/18 at 15:30 Levetiracetam 750 mg/Dextrose 107.5 ml @ 420 mls/hr Q12HR IV Last administered on 07/03/18at 09:35; Start 07/02/18 at 16:30; Stop 07/03/18 at 14:17 ; Status DC Sodium Chloride (Normal Saline Flush 3ml) 3 ml QSHIFT PRN IV AFTER MEDS AND BLOOD DRAWS; Start 07/02/18 at 15:45 Sodium Chloride 1,000 ml @ 100 mls/hr Q10H IV Last administered on 07/02/18at 16:04; Start 07/02/18 at 16:30; Stop 07/04/18 at 16:37; Status DC Ondansetron HCl (Zofran) 4 mg PRN Q4HRS PRN IV NAUSEA/VOMITING; Start 07/02/18 at 15:45 Zolpidem Tartrate (Ambien) 5 mg PRN QHS PRN PO INSOMNIA; Start 07/02/18 at 15: 45 Acetaminophen (Tylenol) 650 mg PRN Q4HRS PRN PO TEMP OVER 100.4F OR MILD PAIN; Start 07/02/18 at 15:45 Al Hydroxide/Mg Hydroxide (Mylanta Plus Xs) 30 ml PRN DAILY PRN PO HEARTBURN / GAS; Start 07/02/18 at 15:45 Clonidine HCl (Catapres) 0.1 mg PRN Q6HRS PRN PO SBP>160 OR DBP>90; Start 07/02 at 15:45 Sodium Monofluorophosphate (Fleet Adult) 133 ml PRN DAILY PRN ID CONSTIPATION; Start 07/02/18 at 15:45 Diphenhydramine HCl (Benadryl) 25 mg PRN Q4HRS PRN IVP ITCHING; Start 07/02/18 at 15:45 Docusate Sodium (Colace) 100 mg PRN BID PRN PO CONSTIPATION; Start 07/02/18 at 15:45 Albuterol Sulfate (Ventolin Neb Soln) 2.5 mg PRN Q4HRS PRN NEB SHORTNESS OF BREATH; Start 07/02/18 at 15:45 Guaifenesin (Robitussin) 200 mg PRN Q4HRS PRN PO COUGH; Start 07/02/18 at 15:45 Lorazepam (Ativan) 0.5 mg PRN Q4HRS PRN PO ANXIETY / AGITATION Last administered on 07/12/18 21:16; Start 07/02/18 at 15:45 Enoxaparin Sodium (Lovenox 40mg Syringe) 40 mg DAILY SQ Last administered on 09:08; Start 07/03/18 at 09:00 Hydralazine HCl (Apresoline Inj) 10 mg PRN Q4HRS PRN IVP ELEVATED BP, SEE COMMENTS Last administered on 07/04/18at 14:20; Start 07/02/18 at 16:45 Nitroglycerin (Nitro-Bid Oint) 0.5 inch Q6HRS TP Last administered on 07/14/18 05:34; Start 07/02/18 at 17:30 Aspirin (Children'S Aspirin) 81 mg DAILY PO Last administered on 07/13/18 09:07 ; Start 07/03/18 at 09:00 Lorazepam (Ativan) 2 mg PRN Q4HRS PRN IV ALCOHOL WITHDRAWAL; Start 07/02/18 at 18:30; Status Cancel Cefepime HCl (Maxipime) 2 gm Q8HRS IVP Last administered on 07/04/18at 14:00; Start 07/03/18 at 14:30; Stop 07/04/18 at 18:56; Status DC Acyclovir Sodium 730 mg/Dextrose 264.6 ml @ 264.6 mls/ hr Q8HRS IV Last administered on 07/04/18 05:07; Start 07/03/18 at 15:00; Stop 07/04/18 at 12:26 ; Status DC Vancomycin HCl (Vanco Per Pharmacy) 1 each PRN DAILY PRN MC SEE COMMENTS Last administered on 07/04/18at 12:31; Start 07/03/18 at 14:15; Stop 07/04/18 at 18:56 ; Status DC Ampicillin Sodium 2 gm/Sodium Chloride 100 ml @ 200 mls/hr Q4HRS IV Last administered on 07/04/18at 16:24; Start 07/03/18 at 16:00; Stop 07/04/18 at 18:56 ; Status DC Vancomycin HCl 1.5 gm/Sodium Chloride 500 ml @ 250 mls/hr 1X ONCE IV Last administered on 07/03/18at 17:54; Start 07/03/18 at 15:00; Stop 07/03/18 at 16:59 ; Status DC Levetiracetam 500 mg/Dextrose 105 ml @ 420 mls/hr Q12HR IV Last administered on 07/07/18at 09:55; Start 07/03/18 at 21:00; Stop 07/07/18 at 11:46; Status DC Divalproex Sodium (Depakote) 500 mg BID PO ; Start 07/03/18 at 21:00; Stop 07/04 at 16:20; Status DC Vancomycin HCl 1 gm/Sodium Chloride 250 ml @ 250 mls/hr Q12H IV Last administered on 07/04/18at 18:45; Start 07/04/18 at 06:00; Stop 07/04/18 at 18:58 ; Status DC Vancomycin HCl (Vancomycin Trough Level) 1 each 1X ONCE MC ; Start 07/05/18 at 05:30; Stop 07/05/18 at 05:31; Status Cancel Amino Acids/ Glycerin/ Electrolytes 1,000 ml @ 80 mls/hr [id number] IV Last administered on 07/14/18at 04:19; Start 07/03/18 at 19:15 Acyclovir Sodium 620 mg/Dextrose 262.4 ml @ 262.4 mls/ hr Q8HRS IV Last administered on 07/05/18at 05:05; Start 07/04/18 at 14:00; Stop 07/05/18 at 13:59 ; Status DC Lactobacillus Rhamnosus (Culturelle) 1 cap BID PO Last administered on at 20:02; Start 07/04/18 at 21:00 Valproic Acid 500 mg/Dextrose 55 ml @ 55 mls/hr Q8HRS IV Last administered on at 06:05; Start 07/04/18 at 17:00; Stop 07/10/18 at 12:12; Status DC Acyclovir Sodium 620 mg/Dextrose 112.4 ml @ 112.4 mls/ hr Q8HRS IV Last administered on 07/06/18at 05:19; Start 07/05/18 at 14:00; Stop 07/06/18 at 13:52 ; Status DC Cefepime HCl (Maxipime) 1 gm Q8HRS IVP Last administered on 07/08/18at 05:47; Start 07/04/18 at 22:00; Stop 07/08/18 at 09:20; Status DC Iohexol (Omnipaque 350 Mg/ml) 75 ml 1X ONCE IV Last administered on 07/05/18at 11:45; Start 07/05/18 at 11:15; Stop 07/05/18 at 11:16; Status DC Info (CONTRAST GIVEN -- Rx MONITORING) 1 each PRN DAILY PRN MC SEE COMMENTS; Start 07/05/18 at 11:30; Stop 07/07/18 at 11:29; Status DC Carbamazepine (TEGretol) 200 mg BID PO Last administered on 07/13/18at 20:02; Start 07/07/18 at 21:00 Ceftriaxone Sodium (Rocephin) 2 gm Q24H IVP Last administered on 07/09/18at 08:02 ; Start 07/08/18 at 10:00; Stop 07/09/18 at 11:51; Status DC Penicillin G Potassium [id number] unit/Dextrose 100 ml @ 100 mls/hr Q4HRS IV Last administered on 07/14/18at 04:19; Start 07/09/18 at 12:00 Barium Sulfate (Varibar Thin Liquid Apple) 148 gm 1X ONCE PO Last administered on 07/09/18at 13:53; Start 07/09/18 at 13:00; Stop 07/09/18 at 13:01; Status DC Non-Formulary Medication 1 ea QID PO Last administered on 07/13/18at 20:04; Start 07/11/18 at 21:00 Active Scripts Active Reported Zithromax (Azithromycin) 500 Mg Tablet 1 Tab PO DAILY Aspirin 81 Mg Tab.chew 81 Mg PO DAILY Hydrocodone-Apap 5-325 (Hydrocodone Bit/Acetaminophen) 1 Tab Tablet 1 Tab PO PRN Q6HRS PRN Vitals/I & O Vital Sign - Last 24 Hours 07/13/18 07/13/18 07/13/18 07/13/18 08:15 11:00 12:28 15:00 Temp 97.7 97.9 97.7 97.9 Pulse 62 62 69 Resp 16 18 B/P (MAP) 151/82 (105) 151/82 152/70 (97) Pulse Ox 97 93 O2 Delivery Room Air Room Air Room Air 07/13/18 07/13/18 07/13/18 07/13/18 19:00 19:10 23:00 23:40 Temp 97.7 97.5 97.7 97.5 Pulse 55 53 53 Resp 18 18 B/P (MAP) 151/73 (99) 161/99 (119) 161/99 Pulse Ox 97 96 O2 Delivery Room Air Room Air Room Air 07/14/18 07/14/18 03:00 05:34 Temp 97.5 97.5 Pulse 60 60 Resp 18 B/P (MAP) 157/73 (101) 157/73 Pulse Ox 97 O2 Delivery Room Air Intake and Output 07/13/18 07/13/18 07/14/18 15:00 23:00 07:00 Intake Total 100 ml 1200 ml Balance 100 ml 1200 ml Nutrition Consultation Dietary Evaluation: Recommendations by RD: PPN/TPN Comments: d/c ppn > 10 days continue diet per EXTERNAL AUDITOR w/ supplements- encourage po intake Expected Outcomes/Goals: new goal 07/11: to meet > 75% est nutr need via po intake Interpretation of weight loss: >7.5% in 3 months Malnutrition Findings: Weight Status: Appropriate FAISAL BRIAN MD Jul 14, 2018 07:38
[2018-07-14] MEDS: PROBENECID PO SCH ×3 (08:47→13:00)
[2018-07-14] MEDS: ENOXAPARIN 40 MG/0.4 ML SYRINGE. SQ SCH (08:47)
[2018-07-14] MEDS: ASPIRIN CHEWABLE 81 MG TABLET. PO SCH ×2 (08:48→09:00)
[2018-07-14] MEDS: carBAMazepine 200 MG TABLET PO SCH ×3 (08:48→20:07)
[2018-07-14] MEDS: LACTOBACILLUS RHAMNOSUS GG 1 CAPSULE. PO SCH ×2 (09:00→20:07)
--- NOTE | 2018-07-14 10:15 | PDOC ---
Infectious Disease Note Subjective Subjective No fevers reported ROS ROS noncommunicative Vital Sign Vital Signs Vital Signs Date Time Temp Pulse Resp B/P (MAP) Pulse Ox O2 Delivery O2 Flow Rate FiO2 07/14/18 07:00 97.1 54 16 133/73 (93) 98 Room Air 97.1 Physical Exam PHYSICAL EXAM GENERAL: Propped up in bed, appears comfortable HEENT: Pupils equally round, Oral mucosa moist, thick film/tongue NECK: Supple. LUNGS: Clear HEART: S1 and S2. ABDOMEN: Soft, no grimace or guarding to palpation, BS present EXTREMITIES: No edema and no cyanosis. SKIN: Warm and dry. No generalized rash. 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: Opens eyes briefly to tactile stimuli, Noncommunicative, no seizure like activity/tremors PICC RUE - clean Labs Lab Laboratory Tests Test 07/14/18 04:15 White Blood Count 7.7 x10^3/uL (4.0-11.0) Red Blood Count 5.39 x10^6/uL (4.30-5.70) Hemoglobin 13.3 g/dL (13.0-17.5) Hematocrit 41.4 % (39.0-53.0) Mean Corpuscular Volume 77 fL (79-100) Mean Corpuscular Hemoglobin 25 pg (25-35) Mean Corpuscular Hemoglobin Concent 32 g/dL (31-37) Red Cell Distribution Width 15.1 % (11.5-14.5) Platelet Count 259 x10^3/uL (140-400) Neutrophils (%) (Auto) 47 % (31-73) Lymphocytes (%) (Auto) 24 % (24-48) Monocytes (%) (Auto) 10 % (0-9) Eosinophils (%) (Auto) 18 % (0-3) Basophils (%) (Auto) 1 % (0-3) Neutrophils # (Auto) 3.6 x10^3uL (1.8-7.7) Lymphocytes # (Auto) 1.8 x10^3/uL (1.0-4.8) Monocytes # (Auto) 0.7 x10^3/uL (0.0-1.1) Eosinophils # (Auto) 1.4 x10^3/uL (0.0-0.7) Basophils # (Auto) 0.1 x10^3/uL (0.0-0.2) Sodium Level 138 mmol/L (136-145) Potassium Level 4.6 mmol/L (3.5-5.1) Chloride Level 101 mmol/L (98-107) Carbon Dioxide Level 29 mmol/L (21-32) Anion Gap 8 (6-14) Blood Urea Nitrogen 17 mg/dL (8-26) Creatinine 0.9 mg/dL (0.7-1.3) Estimated GFR (Cockcroft-Gault) 85.2 Glucose Level 97 mg/dL (70-99) Calcium Level 9.1 mg/dL (8.5-10.1) Micro 07/02/18 Blood Culture - Preliminary, Resulted NO GROWTH AFTER 34DAYS 07/05/18 CSF Gram Stain - Final, Complete GRAM STAIN,CSF Final WBCS NONE SEEN RBCS NONE SEEN ORGANISMS NONE SEEN AFB CULTURE GRAM STAIN Final Negative Objective Assessment LUE contractures, chorea like movements documented before Neurosyphilis + VDRL. RPR 1:16. HIV - neg TB spot indeterminate Encephalopathy - Unable to obtain MRI as the patient has metallic fragments in the floor of the left maxillary sinus. -s/p LP: CSF WBC 0, glucose 61, T protein 61.1. VDRL pending -HSV PCR negative; HIV nonreactive Status epilepticus. on Keppra Hypertensive encephalopathy. History of incarceration more than 20 years ago. Diabetes. Peripheral vascular disease. Left nephrectomy. Aspiration Pneumonitis Smoking Plan Plan of Care Cont PCN 4 million q 4. will consider Rocephin day one so will need treatment with last dose 07/20. This will complete 10 to 14 days of treatment. Could begin po Probenicid 500 mg po QID as it it available in the Pharmacy (d/w pharmacy) and add daily IM procaine PCN injections 2.4 million units to complete 14 days until 07/20 if discharged but given L hand contractures would monitor given his seizure history and potential lowering of seizure threshold with PCN He will need a repeat CSF VDRL in 3 mos to 6 mos and VDRL should be nonreactive or will require retreatment Will need repeat TB spot in a few month Maintain aspiration precaution. Neurology following Oral care Attending Co-Sign The patient was seen and interviewed as well as examined at the bedside. The chart was reviewed. The case was discussed. Agree with the plan of care. ALISA BOSCH PANTRY GOODS WORKER Jul 14, 2018 10:15 KAZ RAYO MD Jul 14, 2018 10:19
[2018-07-14 11:00] VITALS: BP 146/59
--- NOTE | 2018-07-14 12:22 | NUR ---
pt swatting at this song writer's arm when attempting to give him medications crushed in applesauce.
[2018-07-14 15:00] VITALS: BP 140/69
[2018-07-14] MEDS: PROBENECID 500 MG TABLET PO SCH ×2 (16:49→20:07)
[2018-07-14 19:00] VITALS: BP 157/67
[2018-07-14 23:00] VITALS: BP 174/43
[2018-07-15] VITALS (7 sets, daily range): BP systolic 134–155; BP diastolic 56–71
[2018-07-15] MEDS: DEXTROSE 5% IV SCH ×6 (04:08→23:51)
[2018-07-15] MEDS: PENICILLIN K IV SCH ×6 (04:08→23:51)
[2018-07-15] MEDS: AMINO AC 3%/ELECTROLYTE/GLYCER 1,000 ML IV SCH ×2 (04:48→20:21)
[2018-07-15] MEDS: NITROGLYCERIN OINT 1 GM PACKET. TP SCH ×4 (05:18→23:51)
[2018-07-15 05:46] LABS: BASO # 0.1 x10^3/uL (0.0-0.2); BASO % 1 % (0-3); EOS # 1.1 x10^3/uL (0.0-0.7); EOS % 18 % (0-3); LYMPH # 1.7 x10^3/uL (1.0-4.8); LYMPH % 27 % (24-48); MEAN CORPUSCULAR HEMOGLOBIN 25 pg (25-35); MEAN CORPUSCULAR HGB CONC 33 g/dL (31-37); MEAN CORPUSCULAR VOLUME 77 fL (79-100); MONO # 0.5 x10^3/uL (0.0-1.1); MONO % 9 % (0-9); NEUT # 2.7 x10^3uL (1.8-7.7); NEUT % 45 % (31-73); PLATELET COUNT 243 x10^3/uL (140-400); WHITE BLOOD COUNT 6.1 x10^3/uL (4.0-11.0)
[2018-07-15 06:03] LABS: CALCIUM 9.2 mg/dL (8.5-10.1); CREATININE 0.7 mg/dL (0.7-1.3); GFR 113.9; POTASSIUM 4.7 mmol/L (3.5-5.1)
[2018-07-15] MEDS: ASPIRIN CHEWABLE 81 MG TABLET. PO SCH (09:00)
[2018-07-15] MEDS: carBAMazepine 200 MG TABLET PO SCH ×3 (09:00→20:25)
[2018-07-15] MEDS: LACTOBACILLUS RHAMNOSUS GG 1 CAPSULE. PO SCH ×2 (09:00→20:25)
[2018-07-15] MEDS: PROBENECID 500 MG TABLET PO SCH ×4 (09:00→20:25)
[2018-07-15] MEDS: ENOXAPARIN 40 MG/0.4 ML SYRINGE. SQ SCH (09:21)
--- NOTE | 2018-07-15 10:28 | PDOC ---
Infectious Disease Note Subjective Subjective No fevers reported ROS ROS no n/v/d/sob Vital Sign Vital Signs Vital Signs Date Time Temp Pulse Resp B/P (MAP) Pulse Ox O2 Delivery O2 Flow Rate FiO2 07/15/18 08:28 Room Air 07/15/18 07:00 97.5 50 18 152/71 (98) 98 97.5 07/14/18 08:00 2.0 Physical Exam PHYSICAL EXAM GENERAL: Propped up in bed, appears comfortable HEENT: Pupils equally round, Oral mucosa moist, thick film/tongue NECK: Supple. LUNGS: Clear HEART: S1 and S2. ABDOMEN: Soft, no grimace or guarding to palpation, BS present EXTREMITIES: No edema and no cyanosis. SKIN: Warm and dry. No generalized rash. 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 to tactile stimuli, Noncommunicative, no seizure like activity/tremors PICC RUE - clean Labs Lab Laboratory Tests Test 07/15/18 05:30 White Blood Count 6.1 x10^3/uL (4.0-11.0) Red Blood Count 5.20 x10^6/uL (4.30-5.70) Hemoglobin 13.0 g/dL (13.0-17.5) Hematocrit 40.0 % (39.0-53.0) Mean Corpuscular Volume 77 fL (79-100) Mean Corpuscular Hemoglobin 25 pg (25-35) Mean Corpuscular Hemoglobin Concent 33 g/dL (31-37) Red Cell Distribution Width 15.0 % (11.5-14.5) Platelet Count 243 x10^3/uL (140-400) Neutrophils (%) (Auto) 45 % (31-73) Lymphocytes (%) (Auto) 27 % (24-48) Monocytes (%) (Auto) 9 % (0-9) Eosinophils (%) (Auto) 18 % (0-3) Basophils (%) (Auto) 1 % (0-3) Neutrophils # (Auto) 2.7 x10^3uL (1.8-7.7) Lymphocytes # (Auto) 1.7 x10^3/uL (1.0-4.8) Monocytes # (Auto) 0.5 x10^3/uL (0.0-1.1) Eosinophils # (Auto) 1.1 x10^3/uL (0.0-0.7) Basophils # (Auto) 0.1 x10^3/uL (0.0-0.2) Sodium Level 138 mmol/L (136-145) Potassium Level 4.7 mmol/L (3.5-5.1) Chloride Level 102 mmol/L (98-107) Carbon Dioxide Level 29 mmol/L (21-32) Anion Gap 7 (6-14) Blood Urea Nitrogen 17 mg/dL (8-26) Creatinine 0.7 mg/dL (0.7-1.3) Estimated GFR (Cockcroft-Gault) 113.9 Glucose Level 96 mg/dL (70-99) Calcium Level 9.2 mg/dL (8.5-10.1) Micro Microbiology 07/02/18 Blood Culture - Final, Complete NO GROWTH AFTER 5 DAYS 07/05/18 CSF Gram Stain - Final, Complete Objective Assessment LUE contractures, chorea like movements documented before Neurosyphilis + VDRL. RPR 1:16. HIV - neg TB spot indeterminate Encephalopathy - Unable to obtain MRI as the patient has metallic fragments in the floor of the left maxillary sinus. -s/p LP: CSF WBC 0, glucose 61, T protein 61.1. VDRL pending -HSV PCR negative; HIV nonreactive Status epilepticus. on Keppra Hypertensive encephalopathy. History of incarceration more than 20 years ago. Diabetes. Peripheral vascular disease. Left nephrectomy. Aspiration Pneumonitis Smoking Plan Plan of Care Cont PCN 4 million q 4. will consider Rocephin day one so will need treatment with last dose 07/20. This will complete 10 to 14 days of treatment. Maintain aspiration precaution. Neurology following Oral care KAZ RAYO MD Jul 15, 2018 10:28
--- NOTE | 2018-07-15 10:37 | PDOC ---
PROGRESS NOTES Chief Complaint Chief Complaint Encephalopathy, likely metabolic, hx not obtainable from pt. Unable to obtain MRI as the patient has metallic fragments in the floor of the left maxillary sinus. Status epilepticus - Complex focal seizures on 07/02/2016. Hypertensive encephalopathy Acute neurosyphilis - TPPA positive, HIV negative, Acute hepatitis panel neg History of incarceration more than 20 years ago. Diabetes 2 Peripheral vascular disease. Tobacco abuse. Left nephrectomy. Gastroesophageal reflux disease. 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 Moving all extremities. Mumbling responses to questioning- Azeri speaking. Plans of care discussed with RN Encouraged PO Intake, had one Magic Cup yesterday, still on PPN @80/hr Left hand and arm fasciculations intermittently Vitals Vitals Vital Signs Date Time Temp Pulse Resp B/P (MAP) Pulse Ox O2 Delivery O2 Flow Rate FiO2 07/15/18 08:28 Room Air 07/15/18 07:00 97.5 50 18 152/71 (98) 98 97.5 07/14/18 08:00 2.0 Physical Exam General: Alert, No acute distress, Other (mumbling responses to question, easy to arrouse, left arm and hand fasiculations, pleasantly confused) Heart: Regular rate, Normal S1, Normal S2, No murmurs Lungs: Clear, Other (airway patent, normal respiratory effort, no crackles or wheezing) Abdomen: Normal bowel sounds, Soft, No tenderness, No hepatosplenomegaly, No masses, Other (no grimace or guarding to palpation) Extremities: No clubbing, No cyanosis, No edema, Other (Strong peripheral pulses 3+, PICC RUE C/D/I) Skin: No rashes, No breakdown, No significant lesion Labs LABS Laboratory Tests Test 07/15/18 05:30 White Blood Count 6.1 x10^3/uL (4.0-11.0) Red Blood Count 5.20 x10^6/uL (4.30-5.70) Hemoglobin 13.0 g/dL (13.0-17.5) Hematocrit 40.0 % (39.0-53.0) Mean Corpuscular Volume 77 fL (79-100) Mean Corpuscular Hemoglobin 25 pg (25-35) Mean Corpuscular Hemoglobin Concent 33 g/dL (31-37) Red Cell Distribution Width 15.0 % (11.5-14.5) Platelet Count 243 x10^3/uL (140-400) Neutrophils (%) (Auto) 45 % (31-73) Lymphocytes (%) (Auto) 27 % (24-48) Monocytes (%) (Auto) 9 % (0-9) Eosinophils (%) (Auto) 18 % (0-3) Basophils (%) (Auto) 1 % (0-3) Neutrophils # (Auto) 2.7 x10^3uL (1.8-7.7) Lymphocytes # (Auto) 1.7 x10^3/uL (1.0-4.8) Monocytes # (Auto) 0.5 x10^3/uL (0.0-1.1) Eosinophils # (Auto) 1.1 x10^3/uL (0.0-0.7) Basophils # (Auto) 0.1 x10^3/uL (0.0-0.2) Sodium Level 138 mmol/L (136-145) Potassium Level 4.7 mmol/L (3.5-5.1) Chloride Level 102 mmol/L (98-107) Carbon Dioxide Level 29 mmol/L (21-32) Anion Gap 7 (6-14) Blood Urea Nitrogen 17 mg/dL (8-26) Creatinine 0.7 mg/dL (0.7-1.3) Estimated GFR (Cockcroft-Gault) 113.9 Glucose Level 96 mg/dL (70-99) Calcium Level 9.2 mg/dL (8.5-10.1) Review of Systems Review of Systems Denies CP or SOA Assessment and Plan Assessmemt and Plan Asssessment: Encephalopathy, likely metabolic, hx not obtainable from pt. Unable to obtain MRI as the patient has metallic fragments in the floor of the left maxillary sinus. Status epilepticus - Complex focal seizures on 07/02/2016. Hypertensive encephalopathy Acute neurosyphilis - TPPA positive, HIV negative, Acute hepatitis panel neg History of incarceration more than 20 years ago. Diabetes 2 Peripheral vascular disease. Tobacco abuse. Left nephrectomy. Gastroesophageal reflux disease. 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 Labs Laboratory Tests Test 07/14/18 04:15 07/15/18 05:30 White Blood Count 7.7 x10^3/uL (4.0-11.0) 6.1 x10^3/uL (4.0-11.0) Red Blood Count 5.39 x10^6/uL (4.30-5.70) 5.20 x10^6/uL (4.30-5.70) Hemoglobin 13.3 g/dL (13.0-17.5) 13.0 g/dL (13.0-17.5) Hematocrit 41.4 % (39.0-53.0) 40.0 % (39.0-53.0) Mean Corpuscular Volume 77 fL (79-100) 77 fL (79-100) Mean Corpuscular Hemoglobin 25 pg (25-35) 25 pg (25-35) Mean Corpuscular Hemoglobin Concent 32 g/dL (31-37) 33 g/dL (31-37) Red Cell Distribution Width 15.1 % (11.5-14.5) 15.0 % (11.5-14.5) Platelet Count 259 x10^3/uL (140-400) 243 x10^3/uL (140-400) Neutrophils (%) (Auto) 47 % (31-73) 45 % (31-73) Lymphocytes (%) (Auto) 24 % (24-48) 27 % (24-48) Monocytes (%) (Auto) 10 % (0-9) 9 % (0-9) Eosinophils (%) (Auto) 18 % (0-3) 18 % (0-3) Basophils (%) (Auto) 1 % (0-3) 1 % (0-3) Neutrophils # (Auto) 3.6 x10^3uL (1.8-7.7) 2.7 x10^3uL (1.8-7.7) Lymphocytes # (Auto) 1.8 x10^3/uL (1.0-4.8) 1.7 x10^3/uL (1.0-4.8) Monocytes # (Auto) 0.7 x10^3/uL (0.0-1.1) 0.5 x10^3/uL (0.0-1.1) Eosinophils # (Auto) 1.4 x10^3/uL (0.0-0.7) 1.1 x10^3/uL (0.0-0.7) Basophils # (Auto) 0.1 x10^3/uL (0.0-0.2) 0.1 x10^3/uL (0.0-0.2) Sodium Level 138 mmol/L (136-145) 138 mmol/L (136-145) Potassium Level 4.6 mmol/L (3.5-5.1) 4.7 mmol/L (3.5-5.1) Chloride Level 101 mmol/L (98-107) 102 mmol/L (98-107) Carbon Dioxide Level 29 mmol/L (21-32) 29 mmol/L (21-32) Anion Gap 8 (6-14) 7 (6-14) Blood Urea Nitrogen 17 mg/dL (8-26) 17 mg/dL (8-26) Creatinine 0.9 mg/dL (0.7-1.3) 0.7 mg/dL (0.7-1.3) Estimated GFR (Cockcroft-Gault) 85.2 113.9 Glucose Level 97 mg/dL (70-99) 96 mg/dL (70-99) Calcium Level 9.1 mg/dL (8.5-10.1) 9.2 mg/dL (8.5-10.1) Laboratory Tests Test 07/15/18 05:30 White Blood Count 6.1 x10^3/uL (4.0-11.0) Red Blood Count 5.20 x10^6/uL (4.30-5.70) Hemoglobin 13.0 g/dL (13.0-17.5) Hematocrit 40.0 % (39.0-53.0) Mean Corpuscular Volume 77 fL (79-100) Mean Corpuscular Hemoglobin 25 pg (25-35) Mean Corpuscular Hemoglobin Concent 33 g/dL (31-37) Red Cell Distribution Width 15.0 % (11.5-14.5) Platelet Count 243 x10^3/uL (140-400) Neutrophils (%) (Auto) 45 % (31-73) Lymphocytes (%) (Auto) 27 % (24-48) Monocytes (%) (Auto) 9 % (0-9) Eosinophils (%) (Auto) 18 % (0-3) Basophils (%) (Auto) 1 % (0-3) Neutrophils # (Auto) 2.7 x10^3uL (1.8-7.7) Lymphocytes # (Auto) 1.7 x10^3/uL (1.0-4.8) Monocytes # (Auto) 0.5 x10^3/uL (0.0-1.1) Eosinophils # (Auto) 1.1 x10^3/uL (0.0-0.7) Basophils # (Auto) 0.1 x10^3/uL (0.0-0.2) Sodium Level 138 mmol/L (136-145) Potassium Level 4.7 mmol/L (3.5-5.1) Chloride Level 102 mmol/L (98-107) Carbon Dioxide Level 29 mmol/L (21-32) Anion Gap 7 (6-14) Blood Urea Nitrogen 17 mg/dL (8-26) Creatinine 0.7 mg/dL (0.7-1.3) Estimated GFR (Cockcroft-Gault) 113.9 Glucose Level 96 mg/dL (70-99) Calcium Level 9.2 mg/dL (8.5-10.1) Microbiology 07/02/18 Blood Culture - Final, Complete NO GROWTH AFTER 5 DAYS 07/05/18 CSF Gram Stain - Final, Complete Medications Current Medications Sodium Chloride 1,000 ml @ 1,000 mls/hr 1X ONCE IV Last administered on at 10:00; Start 07/02/18 at 10:00; Stop 07/02/18 at 10:59; Status DC Lorazepam (Ativan) 0.5 mg 1X ONCE IV Last administered on 07/02/18at 12:12; Start 07/02/18 at 12:30; Stop 07/02/18 at 12:31; Status DC Aspirin (Children'S Aspirin) 324 mg 1X ONCE PO Last administered on 07/02/18at 13:18; Start 07/02/18 at 13:30; Stop 07/02/18 at 13:31; Status DC Acetaminophen (Tylenol) 650 mg PRN Q4HRS PRN PO FEVER; Start 07/02/18 at 14:30 ; Stop 07/02/18 at 18:38; Status DC Lorazepam (Ativan) 2 mg PRN Q4HRS PRN IV ANXIETY/AGITATION/ETOH WITHDRL Last administered on 07/14/18at 18:11; Start 07/02/18 at 15:30 Levetiracetam 750 mg/Dextrose 107.5 ml @ 420 mls/hr Q12HR IV Last administered on 07/03/18at 09:35; Start 07/02/18 at 16:30; Stop 07/03/18 at 14:17 ; Status DC Sodium Chloride (Normal Saline Flush 3ml) 3 ml QSHIFT PRN IV AFTER MEDS AND BLOOD DRAWS; Start 07/02/18 at 15:45 Sodium Chloride 1,000 ml @ 100 mls/hr Q10H IV Last administered on 07/02/18at 16:04; Start 07/02/18 at 16:30; Stop 07/04/18 at 16:37; Status DC Ondansetron HCl (Zofran) 4 mg PRN Q4HRS PRN IV NAUSEA/VOMITING; Start 07/02/18 at 15:45 Zolpidem Tartrate (Ambien) 5 mg PRN QHS PRN PO INSOMNIA; Start 07/02/18 at 15: 45 Acetaminophen (Tylenol) 650 mg PRN Q4HRS PRN PO TEMP OVER 100.4F OR MILD PAIN; Start 07/02/18 at 15:45 Al Hydroxide/Mg Hydroxide (Mylanta Plus Xs) 30 ml PRN DAILY PRN PO HEARTBURN / GAS; Start 07/02/18 at 15:45 Clonidine HCl (Catapres) 0.1 mg PRN Q6HRS PRN PO SBP>160 OR DBP>90; Start 07/02 at 15:45 Sodium Monofluorophosphate (Fleet Adult) 133 ml PRN DAILY PRN [place] CONSTIPATION; Start 07/02/18 at 15:45 Diphenhydramine HCl (Benadryl) 25 mg PRN Q4HRS PRN IVP ITCHING; Start 07/02/18 at 15:45 Docusate Sodium (Colace) 100 mg PRN BID PRN PO CONSTIPATION; Start 07/02/18 at 15:45 Albuterol Sulfate (Ventolin Neb Soln) 2.5 mg PRN Q4HRS PRN NEB SHORTNESS OF BREATH; Start 07/02/18 at 15:45 Guaifenesin (Robitussin) 200 mg PRN Q4HRS PRN PO COUGH; Start 07/02/18 at 15:45 Lorazepam (Ativan) 0.5 mg PRN Q4HRS PRN PO ANXIETY / AGITATION Last administered on 07/12/18at 21:16; Start 07/02/18 at 15:45 Enoxaparin Sodium (Lovenox 40mg Syringe) 40 mg DAILY SQ Last administered on 07/15/18at 09:21; Start 07/03/18 at 09:00 Hydralazine HCl (Apresoline Inj) 10 mg PRN Q4HRS PRN IVP ELEVATED BP, SEE COMMENTS Last administered on 07/04/18at 14:20; Start 07/02/18 at 16:45 Nitroglycerin (Nitro-Bid Oint) 0.5 inch Q6HRS TP Last administered on 07/15/18at 05:18; Start 07/02/18 at 17:30 Aspirin (Children'S Aspirin) 81 mg DAILY PO Last administered on 07/13/18at 09:07 ; Start 07/03/18 at 09:00 Lorazepam (Ativan) 2 mg PRN Q4HRS PRN IV ALCOHOL WITHDRAWAL; Start 07/02/18 at 18:30; Status Cancel Cefepime HCl (Maxipime) 2 gm Q8HRS IVP Last administered on 07/04/18at 14:00; Start 07/03/18 at 14:30; Stop 07/04/18 at 18:56; Status DC Acyclovir Sodium 730 mg/Dextrose 264.6 ml @ 264.6 mls/ hr Q8HRS IV Last administered on 07/04/18at 05:07; Start 07/03/18 at 15:00; Stop 07/04/18 at 12:26 ; Status DC Vancomycin HCl (Vanco Per Pharmacy) 1 each PRN DAILY PRN MC SEE COMMENTS Last administered on 07/04/18at 12:31; Start 07/03/18 at 14:15; Stop 07/04/18 at 18:56 ; Status DC Ampicillin Sodium 2 gm/Sodium Chloride 100 ml @ 200 mls/hr Q4HRS IV Last administered on 07/04/18at 16:24; Start 07/03/18 at 16:00; Stop 07/04/18 at 18:56 ; Status DC Vancomycin HCl 1.5 gm/Sodium Chloride 500 ml @ 250 mls/hr 1X ONCE IV Last administered on 07/03/18at 17:54; Start 07/03/18 at 15:00; Stop 07/03/18 at 16:59 ; Status DC Levetiracetam 500 mg/Dextrose 105 ml @ 420 mls/hr Q12HR IV Last administered on 07/07/18at 09:55; Start 07/03/18 at 21:00; Stop 07/07/18 at 11:46; Status DC Divalproex Sodium (Depakote) 500 mg BID PO ; Start 07/03/18 at 21:00; Stop 07/04 at 16:20; Status DC Vancomycin HCl 1 gm/Sodium Chloride 250 ml @ 250 mls/hr Q12H IV Last administered on 07/04/18at 18:45; Start 07/04/18 at 06:00; Stop 07/04/18 at 18:58 ; Status DC Vancomycin HCl (Vancomycin Trough Level) 1 each 1X ONCE MC ; Start 07/05/18 at 05:30; Stop 07/05/18 at 05:31; Status Cancel Amino Acids/ Glycerin/ Electrolytes 1,000 ml @ 80 mls/hr [id number] IV Last administered on 07/15/18at 04:48; Start 07/03/18 at 19:15 Acyclovir Sodium 620 mg/Dextrose 262.4 ml @ 262.4 mls/ hr Q8HRS IV Last administered on 07/05/18at 05:05; Start 07/04/18 at 14:00; Stop 07/05/18 at 13:59 ; Status DC Lactobacillus Rhamnosus (Culturelle) 1 cap BID PO Last administered on 20:07; Start 07/04/18 at 21:00 Valproic Acid 500 mg/Dextrose 55 ml @ 55 mls/hr Q8HRS IV Last administered on 06:05; Start 07/04/18 at 17:00; Stop 07/10/18 at 12:12; Status DC Acyclovir Sodium 620 mg/Dextrose 112.4 ml @ 112.4 mls/ hr Q8HRS IV Last administered on 07/06/18 05:19; Start 07/05/18 at 14:00; Stop 07/06/18 at 13:52 ; Status DC Cefepime HCl (Maxipime) 1 gm Q8HRS IVP Last administered on 07/08/18 05:47; Start 07/04/18 at 22:00; Stop 07/08/18 at 09:20; Status DC Iohexol (Omnipaque 350 Mg/ml) 75 ml 1X ONCE IV Last administered on 07/05/18at 11:45; Start 07/05/18 at 11:15; Stop 07/05/18 at 11:16; Status DC Info (CONTRAST GIVEN -- Rx MONITORING) 1 each PRN DAILY PRN MC SEE COMMENTS; Start 07/05/18 at 11:30; Stop 07/07/18 at 11:29; Status DC Carbamazepine (TEGretol) 200 mg BID PO Last administered on 07/14/18 20:07; Start 07/07/18 at 21:00 Ceftriaxone Sodium (Rocephin) 2 gm Q24H IVP Last administered on 07/09/18at 08:02 ; Start 07/08/18 at 10:00; Stop 07/09/18 at 11:51; Status DC Penicillin G Potassium [id number] unit/Dextrose 100 ml @ 100 mls/hr Q4HRS IV Last administered on 07/15/18 09:09; Start 07/09/18 at 12:00 Barium Sulfate (Varibar Thin Liquid Apple) 148 gm 1X ONCE PO Last administered on 07/09/18at 13:53; Start 07/09/18 at 13:00; Stop 07/09/18 at 13:01; Status DC Non-Formulary Medication 1 ea QID PO Last administered on 07/13/18at 20:04; Start 07/11/18 at 21:00; Stop 07/14/18 at 15:35; Status DC Probenecid (Benemid) 500 mg QID PO Last administered on 07/14/18at 20:07; Start 07/14/18 at 17:00 Active Scripts Active Reported Zithromax (Azithromycin) 500 Mg Tablet 1 Tab PO DAILY Aspirin 81 Mg Tab.chew 81 Mg PO DAILY Hydrocodone-Apap 5-325 (Hydrocodone Bit/Acetaminophen) 1 Tab Tablet 1 Tab PO PRN Q6HRS PRN Vitals/I & O Vital Sign - Last 24 Hours 07/14/18 07/14/18 07/14/18 07/14/18 11:00 12:13 15:00 18:11 Temp 97.0 97.0 97.0 97.0 Pulse 53 53 60 60 Resp 16 16 B/P (MAP) 146/59 (88) 146/59 140/69 (92) 140/69 Pulse Ox 98 96 O2 Delivery Room Air Room Air 07/14/18 07/14/18 07/14/18 07/14/18 19:00 19:00 23:00 23:43 Temp 97.6 97.7 97.6 97.7 Pulse 55 69 69 Resp 16 18 B/P (MAP) 157/67 (97) 174/43 (86) 174/43 Pulse Ox 99 97 O2 Delivery Room Air Room Air Room Air 07/15/18 07/15/18 07/15/18 07/15/18 03:00 05:18 07:00 08:28 Temp 98.1 97.5 98.1 97.5 Pulse 53 53 50 Resp 17 18 B/P (MAP) 148/71 (96) 148/71 152/71 (98) Pulse Ox 97 98 O2 Delivery Room Air Room Air Room Air Intake and Output 07/14/18 07/14/18 07/15/18 14:59 22:59 06:59 Intake Total 0 ml 100 ml 1200 ml Balance 0 ml 100 ml 1200 ml Nutrition Consultation Dietary Evaluation: Recommendations by RD: PPN/TPN Comments: d/c ppn > 10 days continue diet per CONTENT ARCHITECT w/ supplements- encourage po intake Expected Outcomes/Goals: new goal 07/11: to meet > 75% est nutr need via po intake Interpretation of weight loss: >7.5% in 3 months Malnutrition Findings: Weight Status: Appropriate RICK MOREJON III DO Jul 15, 2018 10:37
--- NOTE | 2018-07-15 12:36 | NUR ---
SW following pt. Spoke with RN and ID. Pt is refusing to take meds and also refusing to eat at times. Pt is still not ambulating. Palliative care consulted by ID. Will continue to follow.
--- NOTE | 2018-07-15 14:47 | PDOC ---
PROGRESS NOTES Assessment Assessment Status epilepticus, controlled on 07/02/18. Complex focal seizure went status epilepticus on 07/02/16. Metabolic encephalopathy. Hypertensive encephalopathy. Hypertensive emergency, BP 214/112 mmHg. Disorientation. Confusion. Abnormal chorea like movements in left UE. HTN, poorly controlled. DM. PVD. Smoking. 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 Neurosyphilis. RECOMMENDATIONS/PLAN: Tegretol 200 mg bid. Discontinued Keppra, sleepiness. Brain MRI was unable to perform on him due to metallic projects at the floor of the left maxillary sinus. Treat medical diseases. ID on team. Treated patient with PCN. Consulted Palliative Care team. EEG on 07/03/18: Asymmetric cerebral activity. Diffuse slowing in the right side hemispheric area. Repeated EEG on 07/09/18: No seizure activity. HISTORY OF THE PRESENT ILLNESS: This is a 63-y-old descent male patient admitted due to noted altered mental state changes with abnormal movements in left side. Per staff, girlfriend mentioned noting him to be disoriented and EMS was called. He speaks Croatian. He was noted with abnormal movements while on floor he was noted with seizure episodes. No seizure history reported by his girlfriend. No noted complains of any CP SOB leading to this event. No known hx of CAD but noted previously with PAD. It does not appear that he takes medications. Status epilepticus controlled after Ativan and Keppra administrations on 06/04/18 , but he has abnormal chorea like movements in his left UE. He stated on 07/06/18 that he had seizures in his left UE for many years. Seizure consulted on Carbamazepine. PAST MEDICAL HISTORY Cardiovascular: PAD; hx of asymptomatic SB. GI: GERD PAST SURGICAL HISTORY Left nephrectomy. FAMILY HISTORY Unknown SOCIAL HISTORY Smoke: <1 pack per day Lives: With friends. ALLERGY: Unknown MEDICATIONS: Refer to MAR REVIEW OF SYSTEMS: Constitutional: No malnutrition, cachexia. Head: No traumatic brain or head injury. Skin: No edema, or rash. Ear: No infection. Eyes: No vision loss or color blindness. Nose: No bleeding or purulent discharges. Hearing: No hearing decrease. Neck: No injury. Cardiac: HTN. Pulmonary: Smoking. GI: No GI ulcer, GI bleeding. Urinary/genital: No dysuria, incontinence, urinary retention. Endocrinologic: Diabetes Mellitus. Skeletomuscular: No muscular atrophy. Neurological: see HP. Psychiatric: Denies drug use/abuse. Otherwise, not [id number] review of systems. PHYSICAL EXAMINATION: General appearance is in subacute distress. HEENT: Normocephalic and nontraumatic. Eyes, nose, ears, and throat are unremarkable. Neck is supple. No lymphadenopathy. No crepitus. Cardiovascular: S1, S2, regular rate and rhythm. Pulmonary: No rales heard. Abdomen: Bowel sounds are positive. Extremities: No rash, lesions, or edema. No restriction of range of motion NEUROLOGICAL EXAMINATION: Drowsiness. Not follow commands nor answer questions. Not oriented to time, place and person. PERRL. EOMI. CN: no acute focal findings. Muscle tone: Increased in left UE. Muscle strength: 4+ DTR: 3+. Plantar reflex: Neutral response bilaterally Gait: not examined in bed. Sensory exam: no acute abnormal findings. Not able to access cerebellar signs. F-T-N test not performed due to not follow commands. Left hand and UE jerking like movements resolved. Objective Objective Vital Signs Date Time Temp Pulse Resp B/P (MAP) Pulse Ox O2 Delivery O2 Flow Rate FiO2 07/15/18 12:11 53 134/68 07/15/18 11:00 14 98 Room Air 07/15/18 07:00 97.5 97.5 07/14/18 08:00 2.0 Intake and Output 07/15/18 07:00 Intake Total 1300 ml Balance 1300 ml Intake Oral 0 ml IV Total 1300 ml # Voids 5 Vitals Signs Vitals VS - Last 72 Hours, by Label Date Time Temp Pulse Resp B/P (MAP) Pulse Ox O2 Delivery O2 Flow Rate FiO2 07/15/18 12:11 53 134/68 07/15/18 11:00 53 14 134/68 (90) 98 Room Air 07/15/18 08:28 Room Air 07/15/18 07:00 97.5 50 18 152/71 (98) 98 Room Air 97.5 07/15/18 05:18 53 148/71 07/15/18 03:00 98.1 53 17 148/71 (96) 97 Room Air 98.1 07/14/18 23:43 69 174/43 07/14/18 23:00 97.7 69 18 174/43 (86) 97 Room Air 97.7 07/14/18 19:00 97.6 55 16 157/67 (97) 99 Room Air 97.6 07/14/18 19:00 Room Air 07/14/18 18:11 60 140/69 07/14/18 15:00 97.0 60 16 140/69 (92) 96 Room Air 97.0 07/14/18 12:13 53 146/59 07/14/18 11:00 97.0 53 16 146/59 (88) 98 Room Air 97.0 07/14/18 08:00 Room Air 2.0 07/14/18 07:00 97.1 54 16 133/73 (93) 98 Room Air 97.1 Laboratory Laboratory Laboratory Tests Test 07/15/18 05:30 White Blood Count 6.1 x10^3/uL (4.0-11.0) Red Blood Count 5.20 x10^6/uL (4.30-5.70) Hemoglobin 13.0 g/dL (13.0-17.5) Hematocrit 40.0 % (39.0-53.0) Mean Corpuscular Volume 77 fL (79-100) Mean Corpuscular Hemoglobin 25 pg (25-35) Mean Corpuscular Hemoglobin Concent 33 g/dL (31-37) Red Cell Distribution Width 15.0 % (11.5-14.5) Platelet Count 243 x10^3/uL (140-400) Neutrophils (%) (Auto) 45 % (31-73) Lymphocytes (%) (Auto) 27 % (24-48) Monocytes (%) (Auto) 9 % (0-9) Eosinophils (%) (Auto) 18 % (0-3) Basophils (%) (Auto) 1 % (0-3) Neutrophils # (Auto) 2.7 x10^3uL (1.8-7.7) Lymphocytes # (Auto) 1.7 x10^3/uL (1.0-4.8) Monocytes # (Auto) 0.5 x10^3/uL (0.0-1.1) Eosinophils # (Auto) 1.1 x10^3/uL (0.0-0.7) Basophils # (Auto) 0.1 x10^3/uL (0.0-0.2) Sodium Level 138 mmol/L (136-145) Potassium Level 4.7 mmol/L (3.5-5.1) Chloride Level 102 mmol/L (98-107) Carbon Dioxide Level 29 mmol/L (21-32) Anion Gap 7 (6-14) Blood Urea Nitrogen 17 mg/dL (8-26) Creatinine 0.7 mg/dL (0.7-1.3) Estimated GFR (Cockcroft-Gault) 113.9 Glucose Level 96 mg/dL (70-99) Calcium Level 9.2 mg/dL (8.5-10.1) Microbiology 07/02/18 Blood Culture - Final, Complete NO GROWTH AFTER 5 DAYS 07/05/18 CSF Gram Stain - Final, Complete Medication Medications Current Medications Probenecid (Benemid) 500 mg QID PO Last administered on 07/15/18at 12:31; Start 07/14/18 at 17:00 Comment Review of Relevant I have reviewed the following items kendrick (where applicable) has been applied. NICOLÁS CAMPOS MD Jul 15, 2018 14:47
--- NOTE | 2018-07-15 15:22 | PDOC2 ---
PALLIATIVE CARE Palliative Care Note Palliative Care Consult requested by Dr. Navarrete and Dr. Engel to address goals of care. Medical Assessment per medical record Encephalopathy, likely metabolic, hx not obtainable from pt. Unable to obtain MRI as the patient has metallic fragments in the floor of the left maxillary sinus. Status epilepticus - Complex focal seizures on 07/02/2016. Hypertensive encephalopathy Acute neurosyphilis - TPPA positive, HIV negative, Acute hepatitis panel neg History of incarceration more than 20 years ago. Diabetes 2 Peripheral vascular disease. Tobacco abuse. Left nephrectomy. Gastroesophageal reflux disease. 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 Dementia, (?)tertiary syphilis on tx Patient alert. Unable to understand because of language barrier. Tape Weaver is not able to provide appropriate dialect. No family, friends at bedside. Patient taking small amounts of protein supplements. Refusing some medication. Antibiotics to be completed soon. Attempted to reach [place] s/o. Staff will page if family /friend arrives. Available to meet 1030 tomorrow. Code Status: Full code Discussed with ISACC Sheth Jul 15, 2018 15:22
--- NOTE | 2018-07-15 16:50 | NUR ---
Responded to patients room when bed alarm was alarming and found patient on floor next to bed. Thorough assessment of patient found no apparent injuries, doctor was notified. Patient talking to us. Will continue to monitor patient for any changes.
--- NOTE | 2018-07-15 19:43 | NUR ---
Patient's Girlfriend notified via message left on phone service. Minor info left, and phone number for her to return call.
[2018-07-16 03:00] VITALS: BP 155/50
[2018-07-16] MEDS: DEXTROSE 5% IV SCH ×5 (03:58→20:23)
[2018-07-16] MEDS: PENICILLIN K IV SCH ×5 (03:58→20:23)
[2018-07-16] MEDS: NITROGLYCERIN OINT 1 GM PACKET. TP SCH ×3 (05:14→16:28)
[2018-07-16 05:29] LABS: BASO # 0.1 x10^3/uL (0.0-0.2); BASO % 1 % (0-3); EOS % 16 % (0-3); HEMOGLOBIN 12.5 g/dL (13.0-17.5); LYMPH # 1.7 x10^3/uL (1.0-4.8); LYMPH % 28 % (24-48); MEAN CORPUSCULAR HEMOGLOBIN 25 pg (25-35); MEAN CORPUSCULAR HGB CONC 32 g/dL (31-37); MEAN CORPUSCULAR VOLUME 77 fL (79-100); MONO # 0.6 x10^3/uL (0.0-1.1); MONO % 10 % (0-9); NEUT # 2.8 x10^3uL (1.8-7.7); NEUT % 46 % (31-73); PLATELET COUNT 249 x10^3/uL (140-400); RED BLOOD COUNT 5.07 x10^6/uL (4.30-5.70); RED CELL DISTRIBUTION WIDTH 14.7 % (11.5-14.5); WHITE BLOOD COUNT 6.2 x10^3/uL (4.0-11.0)
[2018-07-16 05:52] LABS: CALCIUM 9.4 mg/dL (8.5-10.1); CREATININE 0.7 mg/dL (0.7-1.3); GFR 113.9; POTASSIUM 4.2 mmol/L (3.5-5.1)
[2018-07-16 07:00] VITALS: BP 149/78
[2018-07-16] MEDS: PROBENECID 500 MG TABLET PO SCH ×4 (09:00→20:23)
[2018-07-16] MEDS: carBAMazepine 200 MG TABLET PO SCH ×2 (09:00→20:23)
[2018-07-16] MEDS: ASPIRIN CHEWABLE 81 MG TABLET. PO SCH (09:00)
[2018-07-16] MEDS: ENOXAPARIN 40 MG/0.4 ML SYRINGE. SQ SCH (09:00)
[2018-07-16] MEDS: LACTOBACILLUS RHAMNOSUS GG 1 CAPSULE. PO SCH ×2 (09:00→20:23)
--- NOTE | 2018-07-16 09:58 | PDOC ---
PROGRESS NOTES Chief Complaint Chief Complaint IMPRESSION Encephalopathy, likely metabolic, hx not obtainable from pt. Unable to obtain MRI as the patient has metallic fragments in the floor of the left maxillary sinus. Status epilepticus - Complex focal seizures on 07/02/2016. Hypertensive encephalopathy Acute neurosyphilis - TPPA positive, HIV negative, Acute hepatitis panel neg History of incarceration more than 20 years ago. Diabetes 2 Peripheral vascular disease. Tobacco abuse. Left nephrectomy. Gastroesophageal reflux disease. 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 Moving all extremities. Mumbling responses to questioning- Sami speaking. Plans of care discussed with RN Encouraged PO Intake, had one Magic Cup yesterday, still on PPN @80/hr Left hand and arm fasciculations intermittently Vitals Vitals Vital Signs Date Time Temp Pulse Resp B/P (MAP) Pulse Ox O2 Delivery O2 Flow Rate FiO2 07/16/18 08:19 Room Air 07/16/18 07:00 97.5 62 16 149/78 (101) 99 97.5 Physical Exam General: Alert, No acute distress, Other (mumbling responses to question, easy to arrouse, left arm and hand fasiculations, pleasantly confused) Heart: Regular rate, Normal S1, Normal S2, No murmurs Lungs: Clear, Other (airway patent, normal respiratory effort, no crackles or wheezing) Abdomen: Normal bowel sounds, Soft, No tenderness, No hepatosplenomegaly, No masses, Other (no grimace or guarding to palpation) Extremities: No clubbing, No cyanosis, No edema, Other (Strong peripheral pulses 3+, PICC RUE C/D/I) Skin: No rashes, No breakdown, No significant lesion Labs LABS CT Head without contrast 07/09/2018 8:40 AM Indication: Altered mental status. Comparison: CT head without contrast July 02, 2018 Findings: No intracranial hemorrhage is seen. No evidence of acute territorial infarct is seen. Note that CT is limited in sensitivity for acute ischemia. Age-related atrophic changes are noted. There is patchy periventricular and deep white matter hypoattenuation which is nonspecific, but most commonly relates to chronic small vessel disease. The appearance is similar to comparison study. No abnormal extra axial fluid collection is identified. No mass effect or midline shift is seen. No acute osseous abnormalities are seen. Impression: 1. No acute intracranial process identified 2. Age-related atrophy, and evidence of chronic small vessel disease as described. The appearance is similar to comparison exam CT DOSING PQRS STATEMENT: When ingesting the thin liquids there was mild laryngeal penetration. This material eventually dribbled down to and below the level of the vocal cords. When the thicker materials including nectar consistency and honey thickened material were utilized the laryngeal penetration abated. There was a moderate amount of intermittent vallecular and pyriform sinus residue. When ingesting the barium coated solid, material accumulated in the vallecula without initiation of pharyngeal peristalsis. A subsequent swallow of liquid did clear the vallecula. IMPRESSION: Mild laryngeal penetration and aspiration of the thin liquids which abated when the thicker materials were utilized. Laboratory Tests Test 07/16/18 05:00 White Blood Count 6.2 x10^3/uL (4.0-11.0) Red Blood Count 5.07 x10^6/uL (4.30-5.70) Hemoglobin 12.5 g/dL (13.0-17.5) Hematocrit 39.0 % (39.0-53.0) Mean Corpuscular Volume 77 fL (79-100) Mean Corpuscular Hemoglobin 25 pg (25-35) Mean Corpuscular Hemoglobin Concent 32 g/dL (31-37) Red Cell Distribution Width 14.7 % (11.5-14.5) Platelet Count 249 x10^3/uL (140-400) Neutrophils (%) (Auto) 46 % (31-73) Lymphocytes (%) (Auto) 28 % (24-48) Monocytes (%) (Auto) 10 % (0-9) Eosinophils (%) (Auto) 16 % (0-3) Basophils (%) (Auto) 1 % (0-3) Neutrophils # (Auto) 2.8 x10^3uL (1.8-7.7) Lymphocytes # (Auto) 1.7 x10^3/uL (1.0-4.8) Monocytes # (Auto) 0.6 x10^3/uL (0.0-1.1) Eosinophils # (Auto) 1.0 x10^3/uL (0.0-0.7) Basophils # (Auto) 0.1 x10^3/uL (0.0-0.2) Sodium Level 137 mmol/L (136-145) Potassium Level 4.2 mmol/L (3.5-5.1) Chloride Level 101 mmol/L (98-107) Carbon Dioxide Level 27 mmol/L (21-32) Anion Gap 9 (6-14) Blood Urea Nitrogen 17 mg/dL (8-26) Creatinine 0.7 mg/dL (0.7-1.3) Estimated GFR (Cockcroft-Gault) 113.9 Glucose Level 98 mg/dL (70-99) Calcium Level 9.4 mg/dL (8.5-10.1) Assessment and Plan Assessmemt and Plan Problems Medical Problems: (1) Elevated troponin Status: Acute (2) Tremor Status: Acute Comment Review of Relevant I have reviewed the following items kendrick (where applicable) has been applied. Labs Laboratory Tests Test 07/15/18 05:30 07/16/18 05:00 White Blood Count 6.1 x10^3/uL (4.0-11.0) 6.2 x10^3/uL (4.0-11.0) Red Blood Count 5.20 x10^6/uL (4.30-5.70) 5.07 x10^6/uL (4.30-5.70) Hemoglobin 13.0 g/dL (13.0-17.5) 12.5 g/dL (13.0-17.5) Hematocrit 40.0 % (39.0-53.0) 39.0 % (39.0-53.0) Mean Corpuscular Volume 77 fL (79-100) 77 fL (79-100) Mean Corpuscular Hemoglobin 25 pg (25-35) 25 pg (25-35) Mean Corpuscular Hemoglobin Concent 33 g/dL (31-37) 32 g/dL (31-37) Red Cell Distribution Width 15.0 % (11.5-14.5) 14.7 % (11.5-14.5) Platelet Count 243 x10^3/uL (140-400) 249 x10^3/uL (140-400) Neutrophils (%) (Auto) 45 % (31-73) 46 % (31-73) Lymphocytes (%) (Auto) 27 % (24-48) 28 % (24-48) Monocytes (%) (Auto) 9 % (0-9) 10 % (0-9) Eosinophils (%) (Auto) 18 % (0-3) 16 % (0-3) Basophils (%) (Auto) 1 % (0-3) 1 % (0-3) Neutrophils # (Auto) 2.7 x10^3uL (1.8-7.7) 2.8 x10^3uL (1.8-7.7) Lymphocytes # (Auto) 1.7 x10^3/uL (1.0-4.8) 1.7 x10^3/uL (1.0-4.8) Monocytes # (Auto) 0.5 x10^3/uL (0.0-1.1) 0.6 x10^3/uL (0.0-1.1) Eosinophils # (Auto) 1.1 x10^3/uL (0.0-0.7) 1.0 x10^3/uL (0.0-0.7) Basophils # (Auto) 0.1 x10^3/uL (0.0-0.2) 0.1 x10^3/uL (0.0-0.2) Sodium Level 138 mmol/L (136-145) 137 mmol/L (136-145) Potassium Level 4.7 mmol/L (3.5-5.1) 4.2 mmol/L (3.5-5.1) Chloride Level 102 mmol/L (98-107) 101 mmol/L (98-107) Carbon Dioxide Level 29 mmol/L (21-32) 27 mmol/L (21-32) Anion Gap 7 (6-14) 9 (6-14) Blood Urea Nitrogen 17 mg/dL (8-26) 17 mg/dL (8-26) Creatinine 0.7 mg/dL (0.7-1.3) 0.7 mg/dL (0.7-1.3) Estimated GFR (Cockcroft-Gault) 113.9 113.9 Glucose Level 96 mg/dL (70-99) 98 mg/dL (70-99) Calcium Level 9.2 mg/dL (8.5-10.1) 9.4 mg/dL (8.5-10.1) Laboratory Tests Test 07/16/18 05:00 White Blood Count 6.2 x10^3/uL (4.0-11.0) Red Blood Count 5.07 x10^6/uL (4.30-5.70) Hemoglobin 12.5 g/dL (13.0-17.5) Hematocrit 39.0 % (39.0-53.0) Mean Corpuscular Volume 77 fL (79-100) Mean Corpuscular Hemoglobin 25 pg (25-35) Mean Corpuscular Hemoglobin Concent 32 g/dL (31-37) Red Cell Distribution Width 14.7 % (11.5-14.5) Platelet Count 249 x10^3/uL (140-400) Neutrophils (%) (Auto) 46 % (31-73) Lymphocytes (%) (Auto) 28 % (24-48) Monocytes (%) (Auto) 10 % (0-9) Eosinophils (%) (Auto) 16 % (0-3) Basophils (%) (Auto) 1 % (0-3) Neutrophils # (Auto) 2.8 x10^3uL (1.8-7.7) Lymphocytes # (Auto) 1.7 x10^3/uL (1.0-4.8) Monocytes # (Auto) 0.6 x10^3/uL (0.0-1.1) Eosinophils # (Auto) 1.0 x10^3/uL (0.0-0.7) Basophils # (Auto) 0.1 x10^3/uL (0.0-0.2) Sodium Level 137 mmol/L (136-145) Potassium Level 4.2 mmol/L (3.5-5.1) Chloride Level 101 mmol/L (98-107) Carbon Dioxide Level 27 mmol/L (21-32) Anion Gap 9 (6-14) Blood Urea Nitrogen 17 mg/dL (8-26) Creatinine 0.7 mg/dL (0.7-1.3) Estimated GFR (Cockcroft-Gault) 113.9 Glucose Level 98 mg/dL (70-99) Calcium Level 9.4 mg/dL (8.5-10.1) Microbiology 07/02/18 Blood Culture - Final, Complete NO GROWTH AFTER 5 DAYS 07/05/18 CSF Gram Stain - Final, Complete Medications Current Medications Sodium Chloride 1,000 ml @ 1,000 mls/hr 1X ONCE IV Last administered on at 10:00; Start 07/02/18 at 10:00; Stop 07/02/18 at 10:59; Status DC Lorazepam (Ativan) 0.5 mg 1X ONCE IV Last administered on 07/02/18at 12:12; Start 07/02/18 at 12:30; Stop 07/02/18 at 12:31; Status DC Aspirin (Children'S Aspirin) 324 mg 1X ONCE PO Last administered on 07/02/18at 13:18; Start 07/02/18 at 13:30; Stop 07/02/18 at 13:31; Status DC Acetaminophen (Tylenol) 650 mg PRN Q4HRS PRN PO FEVER; Start 07/02/18 at 14:30 ; Stop 07/02/18 at 18:38; Status DC Lorazepam (Ativan) 2 mg PRN Q4HRS PRN IV ANXIETY/AGITATION/ETOH WITHDRL Last administered on 07/16/18 07:34; Start 07/02/18 at 15:30 Levetiracetam 750 mg/Dextrose 107.5 ml @ 420 mls/hr Q12HR IV Last administered on 07/03/18 09:35; Start 07/02/18 at 16:30; Stop 07/03/18 at 14:17 ; Status DC Sodium Chloride (Normal Saline Flush 3ml) 3 ml QSHIFT PRN IV AFTER MEDS AND BLOOD DRAWS Last administered on 07/16/18 07:35; Start 07/02/18 at 15:45 Sodium Chloride 1,000 ml @ 100 mls/hr Q10H IV Last administered on 07/02/18 16:04; Start 07/02/18 at 16:30; Stop 07/04/18 at 16:37; Status DC Ondansetron HCl (Zofran) 4 mg PRN Q4HRS PRN IV NAUSEA/VOMITING; Start 07/02/18 at 15:45 Zolpidem Tartrate (Ambien) 5 mg PRN QHS PRN PO INSOMNIA; Start 07/02/18 at 15: 45 Acetaminophen (Tylenol) 650 mg PRN Q4HRS PRN PO TEMP OVER 100.4F OR MILD PAIN; Start 07/02/18 at 15:45 Al Hydroxide/Mg Hydroxide (Mylanta Plus Xs) 30 ml PRN DAILY PRN PO HEARTBURN / GAS; Start 07/02/18 at 15:45 Clonidine HCl (Catapres) 0.1 mg PRN Q6HRS PRN PO SBP>160 OR DBP>90; Start 07/02 at 15:45 Sodium Monofluorophosphate (Fleet Adult) 133 ml PRN DAILY PRN RI CONSTIPATION; Start 07/02/18 at 15:45 Diphenhydramine HCl (Benadryl) 25 mg PRN Q4HRS PRN IVP ITCHING; Start 07/02/18 at 15:45 Docusate Sodium (Colace) 100 mg PRN BID PRN PO CONSTIPATION; Start 07/02/18 at 15:45 Albuterol Sulfate (Ventolin Neb Soln) 2.5 mg PRN Q4HRS PRN NEB SHORTNESS OF BREATH; Start 07/02/18 at 15:45 Guaifenesin (Robitussin) 200 mg PRN Q4HRS PRN PO COUGH; Start 07/02/18 at 15:45 Lorazepam (Ativan) 0.5 mg PRN Q4HRS PRN PO ANXIETY / AGITATION Last administered on 07/12/18 21:16; Start 07/02/18 at 15:45 Enoxaparin Sodium (Lovenox 40mg Syringe) 40 mg DAILY SQ Last administered on 09:21; Start 07/03/18 at 09:00 Hydralazine HCl (Apresoline Inj) 10 mg PRN Q4HRS PRN IVP ELEVATED BP, SEE COMMENTS Last administered on 07/04/18 14:20; Start 07/02/18 at 16:45 Nitroglycerin (Nitro-Bid Oint) 0.5 inch Q6HRS TP Last administered on 07/16/18 05:14; Start 07/02/18 at 17:30 Aspirin (Children'S Aspirin) 81 mg DAILY PO Last administered on 07/13/18 09:07 ; Start 07/03/18 at 09:00 Lorazepam (Ativan) 2 mg PRN Q4HRS PRN IV ALCOHOL WITHDRAWAL; Start 07/02/18 at 18:30; Status Cancel Cefepime HCl (Maxipime) 2 gm Q8HRS IVP Last administered on 07/04/18at 14:00; Start 07/03/18 at 14:30; Stop 07/04/18 at 18:56; Status DC Acyclovir Sodium 730 mg/Dextrose 264.6 ml @ 264.6 mls/ hr Q8HRS IV Last administered on 07/04/18at 05:07; Start 07/03/18 at 15:00; Stop 07/04/18 at 12:26 ; Status DC Vancomycin HCl (Vanco Per Pharmacy) 1 each PRN DAILY PRN MC SEE COMMENTS Last administered on 07/04/18at 12:31; Start 07/03/18 at 14:15; Stop 07/04/18 at 18:56 ; Status DC Ampicillin Sodium 2 gm/Sodium Chloride 100 ml @ 200 mls/hr Q4HRS IV Last administered on 07/04/18at 16:24; Start 07/03/18 at 16:00; Stop 07/04/18 at 18:56 ; Status DC Vancomycin HCl 1.5 gm/Sodium Chloride 500 ml @ 250 mls/hr 1X ONCE IV Last administered on 07/03/18at 17:54; Start 07/03/18 at 15:00; Stop 07/03/18 at 16:59 ; Status DC Levetiracetam 500 mg/Dextrose 105 ml @ 420 mls/hr Q12HR IV Last administered on 07/07/18at 09:55; Start 07/03/18 at 21:00; Stop 07/07/18 at 11:46; Status DC Divalproex Sodium (Depakote) 500 mg BID PO ; Start 07/03/18 at 21:00; Stop 07/04 at 16:20; Status DC Vancomycin HCl 1 gm/Sodium Chloride 250 ml @ 250 mls/hr Q12H IV Last administered on 07/04/18at 18:45; Start 07/04/18 at 06:00; Stop 07/04/18 at 18:58 ; Status DC Vancomycin HCl (Vancomycin Trough Level) 1 each 1X ONCE MC ; Start 07/05/18 at 05:30; Stop 07/05/18 at 05:31; Status Cancel Amino Acids/ Glycerin/ Electrolytes 1,000 ml @ 80 mls/hr [id number] IV Last administered on 07/15/18at 20:21; Start 07/03/18 at 19:15 Acyclovir Sodium 620 mg/Dextrose 262.4 ml @ 262.4 mls/ hr Q8HRS IV Last administered on 07/05/18at 05:05; Start 07/04/18 at 14:00; Stop 07/05/18 at 13:59 ; Status DC Lactobacillus Rhamnosus (Culturelle) 1 cap BID PO Last administered on at 20:07; Start 07/04/18 at 21:00 Valproic Acid 500 mg/Dextrose 55 ml @ 55 mls/hr Q8HRS IV Last administered on 06:05; Start 07/04/18 at 17:00; Stop 07/10/18 at 12:12; Status DC Acyclovir Sodium 620 mg/Dextrose 112.4 ml @ 112.4 mls/ hr Q8HRS IV Last administered on 07/06/18at 05:19; Start 07/05/18 at 14:00; Stop 07/06/18 at 13:52 ; Status DC Cefepime HCl (Maxipime) 1 gm Q8HRS IVP Last administered on 07/08/18at 05:47; Start 07/04/18 at 22:00; Stop 07/08/18 at 09:20; Status DC Iohexol (Omnipaque 350 Mg/ml) 75 ml 1X ONCE IV Last administered on 07/05/18at 11:45; Start 07/05/18 at 11:15; Stop 07/05/18 at 11:16; Status DC Info (CONTRAST GIVEN -- Rx MONITORING) 1 each PRN DAILY PRN MC SEE COMMENTS; Start 07/05/18 at 11:30; Stop 07/07/18 at 11:29; Status DC Carbamazepine (TEGretol) 200 mg BID PO Last administered on 07/15/18at 12:33; Start 07/07/18 at 21:00 Ceftriaxone Sodium (Rocephin) 2 gm Q24H IVP Last administered on 07/09/18at 08:02 ; Start 07/08/18 at 10:00; Stop 07/09/18 at 11:51; Status DC Penicillin G Potassium [id number] unit/Dextrose 100 ml @ 100 mls/hr Q4HRS IV Last administered on 07/16/18at 03:58; Start 07/09/18 at 12:00 Barium Sulfate (Varibar Thin Liquid Apple) 148 gm 1X ONCE PO Last administered on 07/09/18at 13:53; Start 07/09/18 at 13:00; Stop 07/09/18 at 13:01; Status DC Non-Formulary Medication 1 ea QID PO Last administered on 07/13/18at 20:04; Start 07/11/18 at 21:00; Stop 07/14/18 at 15:35; Status DC Probenecid (Benemid) 500 mg QID PO Last administered on 07/15/18at 12:31; Start 07/14/18 at 17:00 Active Scripts Active Reported Zithromax (Azithromycin) 500 Mg Tablet 1 Tab PO DAILY Aspirin 81 Mg Tab.chew 81 Mg PO DAILY Hydrocodone-Apap 5-325 (Hydrocodone Bit/Acetaminophen) 1 Tab Tablet 1 Tab PO PRN Q6HRS PRN Vitals/I & O Vital Sign - Last 24 Hours 07/15/18 07/15/18 07/15/18 07/15/18 11:00 12:11 14:43 16:48 Temp 97.8 97.8 Pulse 53 53 55 59 Resp 14 16 16 B/P (MAP) 134/68 (90) 134/68 146/61 (89) 155/71 (99) Pulse Ox 98 99 99 O2 Delivery Room Air Room Air Room Air 07/15/18 07/15/18 07/15/18 07/15/18 17:47 19:00 19:15 22:58 Temp 97.6 97.5 97.6 97.5 Pulse 59 56 Resp 18 18 B/P (MAP) 176/76 154/56 (88) 152/62 (92) Pulse Ox 96 98 O2 Delivery Room Air Room Air Room Air 07/15/18 07/16/18 07/16/18 07/16/18 23:51 03:00 05:14 07:00 Temp 97.5 97.5 97.5 97.5 Pulse 56 77 74 62 Resp 18 16 B/P (MAP) 152/62 155/50 (85) 160/58 149/78 (101) Pulse Ox 98 99 O2 Delivery Room Air Room Air 07/16/18 07/16/18 08:09 08:19 O2 Delivery Room Air Room Air Intake and Output 07/15/18 07/15/18 07/16/18 15:00 23:00 07:00 Intake Total 250 ml 1200 ml 100 ml Balance 250 ml 1200 ml 100 ml Nutrition Consultation Dietary Evaluation: Recommendations by RD: PPN/TPN Comments: d/c ppn > 10 days 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
[2018-07-16] MEDS: AMINO AC 3%/ELECTROLYTE/GLYCER 1,000 ML IV SCH ×2 (10:52→20:23)
[2018-07-16 11:00] VITALS: BP 132/65
--- NOTE | 2018-07-16 11:11 | PDOC ---
Infectious Disease Note Subjective Subjective per RN , pt was agitated, now sleepy after ativan ROS ROS no n/v/d/sob Vital Sign Vital Signs Vital Signs Date Time Temp Pulse Resp B/P (MAP) Pulse Ox O2 Delivery O2 Flow Rate FiO2 07/16/18 08:19 Room Air 07/16/18 07:00 97.5 62 16 149/78 (101) 99 97.5 Physical Exam PHYSICAL EXAM GENERAL: comfortable HEENT: Pupils equally round, Oral mucosa moist, thick film/tongue NECK: Supple. LUNGS: Clear HEART: S1 and S2. ABDOMEN: Soft, no grimace or guarding to palpation, BS present EXTREMITIES: No edema and no cyanosis. SKIN: Warm and dry. No generalized rash. [employer]ST[employer]ER [employer]IOR [employer]SEMBLIES: Opens eyes briefly to tactile stimuli, Noncommunicative, no seizure like activity/tremors PICC RUE - clean Labs Lab Laboratory Tests Test 07/16/18 05:00 White Blood Count 6.2 x10^3/uL (4.0-11.0) Red Blood Count 5.07 x10^6/uL (4.30-5.70) Hemoglobin 12.5 g/dL (13.0-17.5) Hematocrit 39.0 % (39.0-53.0) Mean Corpuscular Volume 77 fL (79-100) Mean Corpuscular Hemoglobin 25 pg (25-35) Mean Corpuscular Hemoglobin Concent 32 g/dL (31-37) Red Cell Distribution Width 14.7 % (11.5-14.5) Platelet Count 249 x10^3/uL (140-400) Neutrophils (%) (Auto) 46 % (31-73) Lymphocytes (%) (Auto) 28 % (24-48) Monocytes (%) (Auto) 10 % (0-9) Eosinophils (%) (Auto) 16 % (0-3) Basophils (%) (Auto) 1 % (0-3) Neutrophils # (Auto) 2.8 x10^3uL (1.8-7.7) Lymphocytes # (Auto) 1.7 x10^3/uL (1.0-4.8) Monocytes # (Auto) 0.6 x10^3/uL (0.0-1.1) Eosinophils # (Auto) 1.0 x10^3/uL (0.0-0.7) Basophils # (Auto) 0.1 x10^3/uL (0.0-0.2) Sodium Level 137 mmol/L (136-145) Potassium Level 4.2 mmol/L (3.5-5.1) Chloride Level 101 mmol/L (98-107) Carbon Dioxide Level 27 mmol/L (21-32) Anion Gap 9 (6-14) Blood Urea Nitrogen 17 mg/dL (8-26) Creatinine 0.7 mg/dL (0.7-1.3) Estimated GFR (Cockcroft-Gault) 113.9 Glucose Level 98 mg/dL (70-99) Calcium Level 9.4 mg/dL (8.5-10.1) Micro Microbiology 07/02/18 Blood Culture - Final, Complete NO GROWTH AFTER 5 DAYS 07/05/18 CSF Gram Stain - Final, Complete Objective Assessment LUE contractures, chorea like movements documented before Neurosyphilis + VDRL. RPR 1:16. HIV - neg TB spot indeterminate Encephalopathy - Unable to obtain MRI as the patient has metallic fragments in the floor of the left maxillary sinus. -s/p LP: CSF WBC 0, glucose 61, T protein 61.1. VDRL pending -HSV PCR negative; HIV nonreactive Status epilepticus. on Keppra Hypertensive encephalopathy. History of incarceration more than 20 years ago. Diabetes. Peripheral vascular disease. Left nephrectomy. Aspiration Pneumonitis Smoking Plan Plan of Care Cont PCN 4 million q 4. til 07/20 Maintain aspiration precaution. Neurology following Oral care KAZ RAYO MD Jul 16, 2018 11:11
--- NOTE | 2018-07-16 13:52 | PDOC2 ---
PALLIATIVE CARE Palliative Care Note Palliative Care Patient alert. Restless at times. Unable to understand any verbal attempts --? language barrier/confusion. Unable to reach s/o Chelsie--busy signal on phone --attempted this am and again 1440. ([phone]). Also attempted alternate phone number in notes --[phone]--message to return call Attempted to reach Gloria---name on white board in patient room. Unable to leave a voice massage. ([phone]). Per notes this is a friend. Attempted to reach Judie Avalos [phone]. call can not be completed per message on phone. Requested staff page PC if any visitors come. Code status; Full Code. Discussed above with Zane NICK /Director of Case Management. Recommend pursing guardianship. Will address with physician regarding Best Interest of Patient and proceed according to Physician and Administration Recommendations. [address] Singh regarding his recommendation for code status and review of his recommendation for Hospice. ISACC LR Jul 16, 2018 13:52
[2018-07-16] MEDS ORDERED: BARIUM SULFATE 40% (APPLE) 148 GM PWD. PO ONE (14:00)
[2018-07-16 15:00] VITALS: BP 140/70
--- NOTE | 2018-07-16 15:08 | RAD ---
Examination: VIDEO SWALLOW STUDY History: 0.1 MIN FLUORO
INCOMPLETE STUDY, PT WOULD NOT SWALLOW Comparison/Correlation: None Findings: Fluoroscopy was utilized for 0.1 minutes. The patient was offered liquid contrast multiple times during the exam but refused to consume any of it. As result, this exam is incomplete and nondiagnostic. Impression: Incomplete, nondiagnostic exam. Electronically signed by: Robert Aragon MD (07/16/2018 3:05 PM) [facility]
--- NOTE | 2018-07-16 17:38 | PDOC ---
PROGRESS NOTES Assessment Assessment Status epilepticus, controlled on 07/02/18. Complex focal seizure went status epilepticus on 07/02/16. Metabolic encephalopathy. Hypertensive encephalopathy. Hypertensive emergency, BP 214/112 mmHg. Disorientation. Confusion. Abnormal chorea like movements in left UE. HTN, poorly controlled. DM. PVD. Smoking. 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 Neurosyphilis. RECOMMENDATIONS/PLAN: Continue Tegretol 200 mg bid. Discontinued Keppra, sleepiness. Brain MRI was unable to perform on him due to metallic projects at the floor of the left maxillary sinus. Treat medical diseases. ID on team. Treated patient with PCN for neurosyphilis, chronic. Consulted Palliative Care Team. EEG on 07/03/18: Asymmetric cerebral activity. Diffuse slowing in the right side hemispheric area. Repeated EEG on 07/09/18: No seizure activity. HISTORY OF THE PRESENT ILLNESS: This is a 63-y-old descent male patient admitted due to noted altered mental state changes with abnormal movements in left side. Per staff, girlfriend mentioned noting him to be disoriented and EMS was called. He speaks Greenlandic. He was noted with abnormal movements while on floor he was noted with seizure episodes. No seizure history reported by his girlfriend. No noted complains of any CP SOB leading to this event. No known hx of CAD but noted previously with PAD. It does not appear that he takes medications. Status epilepticus controlled after Ativan and Keppra administrations on 06/04/18 , but he has abnormal chorea like movements in his left UE. He stated on 07/06/18 that he had seizures in his left UE for many years. Seizure controlled on Carbamazepine. PAST MEDICAL HISTORY Cardiovascular: PAD; hx of asymptomatic SB. GI: GERD PAST SURGICAL HISTORY Left nephrectomy. FAMILY HISTORY Unknown SOCIAL HISTORY Smoke: <1 pack per day Lives: With friends. ALLERGY: Unknown MEDICATIONS: Refer to MAR REVIEW OF SYSTEMS: Constitutional: No malnutrition, cachexia. Head: No traumatic brain or head injury. Skin: No edema, or rash. Ear: No infection. Eyes: No vision loss or color blindness. Nose: No bleeding or purulent discharges. Hearing: No hearing decrease. Neck: No injury. Cardiac: HTN. Pulmonary: Smoking. GI: No GI ulcer, GI bleeding. Urinary/genital: No dysuria, incontinence, urinary retention. Endocrinologic: Diabetes Mellitus. Skeletomuscular: No muscular atrophy. Neurological: see HP. Psychiatric: Denies drug use/abuse. Otherwise, not [id number] review of systems. PHYSICAL EXAMINATION: General appearance is in subacute distress. HEENT: Normocephalic and nontraumatic. Eyes, nose, ears, and throat are unremarkable. Neck is supple. No lymphadenopathy. No crepitus. Cardiovascular: S1, S2, regular rate and rhythm. Pulmonary: No rales heard. Abdomen: Bowel sounds are positive. Extremities: No rash, lesions, or edema. No restriction of range of motion NEUROLOGICAL EXAMINATION: Drowsiness. Not follow commands nor answer questions. Not oriented to time, place and person. PERRL. EOMI. CN: no acute focal findings. Muscle tone: Increased in left UE. Muscle strength: 4+ DTR: 3+. Plantar reflex: Neutral response bilaterally Gait: not examined in bed. Sensory exam: no acute abnormal findings. Not able to access cerebellar signs. F-T-N test not performed due to not follow commands. Left hand and UE jerking like movements resolved. Objective Objective Vital Signs Date Time Temp Pulse Resp B/P (MAP) Pulse Ox O2 Delivery O2 Flow Rate FiO2 07/16/18 16:28 52 140/70 07/16/18 15:00 97.5 16 97 Room Air 97.5 Intake and Output 07/16/18 06:59 Intake Total 1550 ml Balance 1550 ml Intake Oral 50 ml IV Total 1500 ml # Voids 6 Vitals Signs Vitals VS - Last 72 Hours, by Label Date Time Temp Pulse Resp B/P (MAP) Pulse Ox O2 Delivery O2 Flow Rate FiO2 07/16/18 16:28 52 140/70 07/16/18 15:00 97.5 52 16 140/70 (93) 97 Room Air 97.5 07/16/18 11:00 97.6 51 16 132/65 (87) 96 Room Air 97.6 07/16/18 08:19 Room Air 07/16/18 08:09 Room Air 07/16/18 07:00 97.5 62 16 149/78 (101) 99 Room Air 97.5 07/16/18 05:14 74 160/58 07/16/18 03:00 97.5 77 18 155/50 (85) 98 Room Air 97.5 07/15/18 23:51 56 152/62 07/15/18 22:58 97.5 56 18 152/62 (92) 98 Room Air 97.5 07/15/18 19:15 Room Air 07/15/18 19:00 97.6 59 18 154/56 (88) 96 Room Air 97.6 07/15/18 17:47 176/76 07/15/18 16:48 59 16 155/71 (99) 99 Room Air 07/15/18 14:43 97.8 55 16 146/61 (89) 99 Room Air 97.8 07/15/18 12:11 53 134/68 07/15/18 11:00 53 14 134/68 (90) 98 Room Air 07/15/18 08:28 Room Air 07/15/18 07:00 97.5 50 18 152/71 (98) 98 Room Air 97.5 Laboratory Laboratory Laboratory Tests Test 07/16/18 05:00 White Blood Count 6.2 x10^3/uL (4.0-11.0) Red Blood Count 5.07 x10^6/uL (4.30-5.70) Hemoglobin 12.5 g/dL (13.0-17.5) Hematocrit 39.0 % (39.0-53.0) Mean Corpuscular Volume 77 fL (79-100) Mean Corpuscular Hemoglobin 25 pg (25-35) Mean Corpuscular Hemoglobin Concent 32 g/dL (31-37) Red Cell Distribution Width 14.7 % (11.5-14.5) Platelet Count 249 x10^3/uL (140-400) Neutrophils (%) (Auto) 46 % (31-73) Lymphocytes (%) (Auto) 28 % (24-48) Monocytes (%) (Auto) 10 % (0-9) Eosinophils (%) (Auto) 16 % (0-3) Basophils (%) (Auto) 1 % (0-3) Neutrophils # (Auto) 2.8 x10^3uL (1.8-7.7) Lymphocytes # (Auto) 1.7 x10^3/uL (1.0-4.8) Monocytes # (Auto) 0.6 x10^3/uL (0.0-1.1) Eosinophils # (Auto) 1.0 x10^3/uL (0.0-0.7) Basophils # (Auto) 0.1 x10^3/uL (0.0-0.2) Sodium Level 137 mmol/L (136-145) Potassium Level 4.2 mmol/L (3.5-5.1) Chloride Level 101 mmol/L (98-107) Carbon Dioxide Level 27 mmol/L (21-32) Anion Gap 9 (6-14) Blood Urea Nitrogen 17 mg/dL (8-26) Creatinine 0.7 mg/dL (0.7-1.3) Estimated GFR (Cockcroft-Gault) 113.9 Glucose Level 98 mg/dL (70-99) Calcium Level 9.4 mg/dL (8.5-10.1) Microbiology 07/02/18 Blood Culture - Final, Complete NO GROWTH AFTER 5 DAYS 07/05/18 CSF Gram Stain - Final, Complete Medication Medications Current Medications Barium Sulfate (Varibar Thin Liquid Apple) 148 gm 1X ONCE PO ; Start 07/16/18 at 14:00; Stop 07/16/18 at 14:01; Status DC Comment Review of Relevant I have reviewed the following items kendrick (where applicable) has been applied. NICOLÁS CAMPOS MD Jul 16, 2018 17:38
[2018-07-16 19:00] VITALS: BP 155/66
[2018-07-16 22:54] VITALS: BP 133/65
[2018-07-17] MEDS: PENICILLIN K IV SCH ×6 (00:08→20:08)
[2018-07-17] MEDS: DEXTROSE 5% IV SCH ×6 (00:08→20:08)
[2018-07-17] MEDS: NITROGLYCERIN OINT 1 GM PACKET. TP SCH ×4 (00:08→17:38)
[2018-07-17 03:00] VITALS: BP 136/60
[2018-07-17 06:30] LABS: CALCIUM 9.2 mg/dL (8.5-10.1); CREATININE 0.8 mg/dL (0.7-1.3); GFR 97.6; POTASSIUM 4.4 mmol/L (3.5-5.1)
[2018-07-17 06:32] LABS: BASO # 0.1 x10^3/uL (0.0-0.2); BASO % 1 % (0-3); EOS # 0.9 x10^3/uL (0.0-0.7); EOS % 16 % (0-3); HEMATOCRIT 39.6 % (39.0-53.0); HEMOGLOBIN 12.4 g/dL (13.0-17.5); LYMPH # 1.7 x10^3/uL (1.0-4.8); LYMPH % 30 % (24-48); MEAN CORPUSCULAR HEMOGLOBIN 24 pg (25-35); MEAN CORPUSCULAR HGB CONC 31 g/dL (31-37); MEAN CORPUSCULAR VOLUME 77 fL (79-100); MONO # 0.6 x10^3/uL (0.0-1.1); MONO % 11 % (0-9); NEUT # 2.5 x10^3uL (1.8-7.7); NEUT % 43 % (31-73); PLATELET COUNT 258 x10^3/uL (140-400); RED BLOOD COUNT 5.16 x10^6/uL (4.30-5.70); RED CELL DISTRIBUTION WIDTH 14.8 % (11.5-14.5); WHITE BLOOD COUNT 5.8 x10^3/uL (4.0-11.0)
[2018-07-17 07:00] VITALS: BP 145/57
[2018-07-17] MEDS: AMINO AC 3%/ELECTROLYTE/GLYCER 1,000 ML IV SCH ×2 (08:15→16:47)
[2018-07-17] MEDS: carBAMazepine 200 MG TABLET PO SCH ×2 (08:41→20:54)
[2018-07-17] MEDS: ENOXAPARIN 40 MG/0.4 ML SYRINGE. SQ SCH (08:41)
[2018-07-17] MEDS: LACTOBACILLUS RHAMNOSUS GG 1 CAPSULE. PO SCH ×2 (08:41→20:54)
[2018-07-17] MEDS: ASPIRIN CHEWABLE 81 MG TABLET. PO SCH (08:41)
[2018-07-17] MEDS: PROBENECID 500 MG TABLET PO SCH ×4 (08:41→20:54)
--- NOTE | 2018-07-17 10:14 | PDOC ---
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 LUNGS: Clear HEART: S1 and S2. ABDOMEN: Soft, no grimace or guarding to palpation, BS present EXTREMITIES: No edema and no cyanosis. SKIN: Warm and dry. No generalized rash. 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: Opens eyes briefly to tactile stimuli, Noncommunicative, no seizure like activity/tremors PICC RUE - clean Labs Lab Laboratory Tests Test 07/17/18 06:00 White Blood Count 5.8 x10^3/uL (4.0-11.0) Red Blood Count 5.16 x10^6/uL (4.30-5.70) Hemoglobin 12.4 g/dL (13.0-17.5) Hematocrit 39.6 % (39.0-53.0) Mean Corpuscular Volume 77 fL (79-100) Mean Corpuscular Hemoglobin 24 pg (25-35) Mean Corpuscular Hemoglobin Concent 31 g/dL (31-37) Red Cell Distribution Width 14.8 % (11.5-14.5) Platelet Count 258 x10^3/uL (140-400) Neutrophils (%) (Auto) 43 % (31-73) Lymphocytes (%) (Auto) 30 % (24-48) Monocytes (%) (Auto) 11 % (0-9) Eosinophils (%) (Auto) 16 % (0-3) Basophils (%) (Auto) 1 % (0-3) Neutrophils # (Auto) 2.5 x10^3uL (1.8-7.7) Lymphocytes # (Auto) 1.7 x10^3/uL (1.0-4.8) Monocytes # (Auto) 0.6 x10^3/uL (0.0-1.1) Eosinophils # (Auto) 0.9 x10^3/uL (0.0-0.7) Basophils # (Auto) 0.1 x10^3/uL (0.0-0.2) Sodium Level 139 mmol/L (136-145) Potassium Level 4.4 mmol/L (3.5-5.1) Chloride Level 103 mmol/L (98-107) Carbon Dioxide Level 29 mmol/L (21-32) Anion Gap 7 (6-14) Blood Urea Nitrogen 14 mg/dL (8-26) Creatinine 0.8 mg/dL (0.7-1.3) Estimated GFR (Cockcroft-Gault) 97.6 Glucose Level 90 mg/dL (70-99) Calcium Level 9.2 mg/dL (8.5-10.1) Micro Microbiology 07/02/18 Blood Culture - Final, Complete NO GROWTH AFTER 5 DAYS 07/05/18 CSF Gram Stain - Final, Complete Objective Assessment LUE contractures, chorea like movements documented before Neurosyphilis + VDRL. RPR 1:16. HIV - neg TB spot indeterminate Encephalopathy - Unable to obtain MRI as the patient has metallic fragments in the floor of the left maxillary sinus. -s/p LP: CSF WBC 0, glucose 61, T protein 61.1. VDRL pending -HSV PCR negative; HIV nonreactive Status epilepticus. on Keppra Hypertensive encephalopathy. History of incarceration more than 20 years ago. Diabetes. Peripheral vascular disease. Left nephrectomy. Aspiration Pneumonitis Smoking Plan Plan of Care Cont PCN 4 million q 4. til 07/20 Maintain aspiration precaution. 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
--- NOTE | 2018-07-17 10:46 | PDOC ---
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 Diabetes 2 Peripheral vascular disease. Tobacco abuse. Left nephrectomy. Gastroesophageal reflux disease. Aspiration Pneumonitis Tremors (?), Age-related atrophy, and evidence of chronic small vessel disease SEVERE MALNUTRITION History of Present Illness History of Present Illness I saw him maybe 2 weeks ago and he seems better today He was able to tell me that he came from [place], that he has a mother or a I Also saw him work with physical therapy today and he was able to do some leg exercises with PT cues PLAN: PCN through 414 per ID Continue ProcalAmine or dysphagia diet and other supportive meds Full code Palliative and social work on case-trying to get a hold of family He seems to be improving for me Vitals Vitals Vital Signs Date Time Temp Pulse Resp B/P (MAP) Pulse Ox O2 Delivery O2 Flow Rate FiO2 07/17/18 07:00 97.5 58 18 145/57 (86) 98 Room Air 97.5 Physical Exam Physical Exam GENERAL: comfortable HEENT: Pupils equally round, Oral mucosa moist, thick film/tongue NECK: Supple. LUNGS: Clear HEART: S1 and S2. ABDOMEN: Soft, no grimace or guarding to palpation, BS present EXTREMITIES: No edema and no cyanosis. SKIN: Warm and dry. No generalized rash. 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 to tactile stimuli, Noncommunicative, no seizure like activity/tremors PICC RUE - clean General: Alert, No acute distress, Other (mumbling responses to question, easy to arrouse, left arm and hand fasiculations, pleasantly confused) Heart: Regular rate, Normal S1, Normal S2, No murmurs Lungs: Clear, Other (airway patent, normal respiratory effort, no crackles or wheezing) Abdomen: Normal bowel sounds, Soft, No tenderness, No hepatosplenomegaly, No masses, Other (no grimace or guarding to palpation) Extremities: No clubbing, No cyanosis, No edema, Other (Strong peripheral pulses 3+, PICC RUE C/D/I) Skin: No rashes, No breakdown, No significant lesion Labs LABS Laboratory Tests Test 07/17/18 06:00 White Blood Count 5.8 x10^3/uL (4.0-11.0) Red Blood Count 5.16 x10^6/uL (4.30-5.70) Hemoglobin 12.4 g/dL (13.0-17.5) Hematocrit 39.6 % (39.0-53.0) Mean Corpuscular Volume 77 fL (79-100) Mean Corpuscular Hemoglobin 24 pg (25-35) Mean Corpuscular Hemoglobin Concent 31 g/dL (31-37) Red Cell Distribution Width 14.8 % (11.5-14.5) Platelet Count 258 x10^3/uL (140-400) Neutrophils (%) (Auto) 43 % (31-73) Lymphocytes (%) (Auto) 30 % (24-48) Monocytes (%) (Auto) 11 % (0-9) Eosinophils (%) (Auto) 16 % (0-3) Basophils (%) (Auto) 1 % (0-3) Neutrophils # (Auto) 2.5 x10^3uL (1.8-7.7) Lymphocytes # (Auto) 1.7 x10^3/uL (1.0-4.8) Monocytes # (Auto) 0.6 x10^3/uL (0.0-1.1) Eosinophils # (Auto) 0.9 x10^3/uL (0.0-0.7) Basophils # (Auto) 0.1 x10^3/uL (0.0-0.2) Sodium Level 139 mmol/L (136-145) Potassium Level 4.4 mmol/L (3.5-5.1) Chloride Level 103 mmol/L (98-107) Carbon Dioxide Level 29 mmol/L (21-32) Anion Gap 7 (6-14) Blood Urea Nitrogen 14 mg/dL (8-26) Creatinine 0.8 mg/dL (0.7-1.3) Estimated GFR (Cockcroft-Gault) 97.6 Glucose Level 90 mg/dL (70-99) Calcium Level 9.2 mg/dL (8.5-10.1) Review of Systems Review of Systems limited ROS, neurosyphilis Assessment and Plan Assessmemt and Plan Problems Medical Problems: (1) Elevated troponin Status: Acute (2) Tremor Status: Acute Comment Review of Relevant I have reviewed the following items kendrick (where applicable) has been applied. Labs Laboratory Tests Test 07/16/18 05:00 07/17/18 06:00 White Blood Count 6.2 x10^3/uL (4.0-11.0) 5.8 x10^3/uL (4.0-11.0) Red Blood Count 5.07 x10^6/uL (4.30-5.70) 5.16 x10^6/uL (4.30-5.70) Hemoglobin 12.5 g/dL (13.0-17.5) 12.4 g/dL (13.0-17.5) Hematocrit 39.0 % (39.0-53.0) 39.6 % (39.0-53.0) Mean Corpuscular Volume 77 fL (79-100) 77 fL (79-100) Mean Corpuscular Hemoglobin 25 pg (25-35) 24 pg (25-35) Mean Corpuscular Hemoglobin Concent 32 g/dL (31-37) 31 g/dL (31-37) Red Cell Distribution Width 14.7 % (11.5-14.5) 14.8 % (11.5-14.5) Platelet Count 249 x10^3/uL (140-400) 258 x10^3/uL (140-400) Neutrophils (%) (Auto) 46 % (31-73) 43 % (31-73) Lymphocytes (%) (Auto) 28 % (24-48) 30 % (24-48) Monocytes (%) (Auto) 10 % (0-9) 11 % (0-9) Eosinophils (%) (Auto) 16 % (0-3) 16 % (0-3) Basophils (%) (Auto) 1 % (0-3) 1 % (0-3) Neutrophils # (Auto) 2.8 x10^3uL (1.8-7.7) 2.5 x10^3uL (1.8-7.7) Lymphocytes # (Auto) 1.7 x10^3/uL (1.0-4.8) 1.7 x10^3/uL (1.0-4.8) Monocytes # (Auto) 0.6 x10^3/uL (0.0-1.1) 0.6 x10^3/uL (0.0-1.1) Eosinophils # (Auto) 1.0 x10^3/uL (0.0-0.7) 0.9 x10^3/uL (0.0-0.7) Basophils # (Auto) 0.1 x10^3/uL (0.0-0.2) 0.1 x10^3/uL (0.0-0.2) Sodium Level 137 mmol/L (136-145) 139 mmol/L (136-145) Potassium Level 4.2 mmol/L (3.5-5.1) 4.4 mmol/L (3.5-5.1) Chloride Level 101 mmol/L (98-107) 103 mmol/L (98-107) Carbon Dioxide Level 27 mmol/L (21-32) 29 mmol/L (21-32) Anion Gap 9 (6-14) 7 (6-14) Blood Urea Nitrogen 17 mg/dL (8-26) 14 mg/dL (8-26) Creatinine 0.7 mg/dL (0.7-1.3) 0.8 mg/dL (0.7-1.3) Estimated GFR (Cockcroft-Gault) 113.9 97.6 Glucose Level 98 mg/dL (70-99) 90 mg/dL (70-99) Calcium Level 9.4 mg/dL (8.5-10.1) 9.2 mg/dL (8.5-10.1) Laboratory Tests Test 07/17/18 06:00 White Blood Count 5.8 x10^3/uL (4.0-11.0) Red Blood Count 5.16 x10^6/uL (4.30-5.70) Hemoglobin 12.4 g/dL (13.0-17.5) Hematocrit 39.6 % (39.0-53.0) Mean Corpuscular Volume 77 fL (79-100) Mean Corpuscular Hemoglobin 24 pg (25-35) Mean Corpuscular Hemoglobin Concent 31 g/dL (31-37) Red Cell Distribution Width 14.8 % (11.5-14.5) Platelet Count 258 x10^3/uL (140-400) Neutrophils (%) (Auto) 43 % (31-73) Lymphocytes (%) (Auto) 30 % (24-48) Monocytes (%) (Auto) 11 % (0-9) Eosinophils (%) (Auto) 16 % (0-3) Basophils (%) (Auto) 1 % (0-3) Neutrophils # (Auto) 2.5 x10^3uL (1.8-7.7) Lymphocytes # (Auto) 1.7 x10^3/uL (1.0-4.8) Monocytes # (Auto) 0.6 x10^3/uL (0.0-1.1) Eosinophils # (Auto) 0.9 x10^3/uL (0.0-0.7) Basophils # (Auto) 0.1 x10^3/uL (0.0-0.2) Sodium Level 139 mmol/L (136-145) Potassium Level 4.4 mmol/L (3.5-5.1) Chloride Level 103 mmol/L (98-107) Carbon Dioxide Level 29 mmol/L (21-32) Anion Gap 7 (6-14) Blood Urea Nitrogen 14 mg/dL (8-26) Creatinine 0.8 mg/dL (0.7-1.3) Estimated GFR (Cockcroft-Gault) 97.6 Glucose Level 90 mg/dL (70-99) Calcium Level 9.2 mg/dL (8.5-10.1) Microbiology 07/02/18 Blood Culture - Final, Complete NO GROWTH AFTER 5 DAYS 07/05/18 CSF Gram Stain - Final, Complete Medications Current Medications Sodium Chloride 1,000 ml @ 1,000 mls/hr 1X ONCE IV Last administered on at 10:00; Start 07/02/18 at 10:00; Stop 07/02/18 at 10:59; Status DC Lorazepam (Ativan) 0.5 mg 1X ONCE IV Last administered on 07/02/18at 12:12; Start 07/02/18 at 12:30; Stop 07/02/18 at 12:31; Status DC Aspirin (Children'S Aspirin) 324 mg 1X ONCE PO Last administered on 07/02/18at 13:18; Start 07/02/18 at 13:30; Stop 07/02/18 at 13:31; Status DC Acetaminophen (Tylenol) 650 mg PRN Q4HRS PRN PO FEVER; Start 07/02/18 at 14:30 ; Stop 07/02/18 at 18:38; Status DC Lorazepam (Ativan) 2 mg PRN Q4HRS PRN IV ANXIETY/AGITATION/ETOH WITHDRL Last administered on 07/16/18at 07:34; Start 07/02/18 at 15:30 Levetiracetam 750 mg/Dextrose 107.5 ml @ 420 mls/hr Q12HR IV Last administered on 07/03/18at 09:35; Start 07/02/18 at 16:30; Stop 07/03/18 at 14:17 ; Status DC Sodium Chloride (Normal Saline Flush 3ml) 3 ml QSHIFT PRN IV AFTER MEDS AND BLOOD DRAWS Last administered on 07/16/18at 07:35; Start 07/02/18 at 15:45 Sodium Chloride 1,000 ml @ 100 mls/hr Q10H IV Last administered on 07/02/18at 16:04; Start 07/02/18 at 16:30; Stop 07/04/18 at 16:37; Status DC Ondansetron HCl (Zofran) 4 mg PRN Q4HRS PRN IV NAUSEA/VOMITING; Start 07/02/18 at 15:45 Zolpidem Tartrate (Ambien) 5 mg PRN QHS PRN PO INSOMNIA; Start 07/02/18 at 15: 45 Acetaminophen (Tylenol) 650 mg PRN Q4HRS PRN PO TEMP OVER 100.4F OR MILD PAIN; Start 07/02/18 at 15:45 Al Hydroxide/Mg Hydroxide (Mylanta Plus Xs) 30 ml PRN DAILY PRN PO HEARTBURN / GAS; Start 07/02/18 at 15:45 Clonidine HCl (Catapres) 0.1 mg PRN Q6HRS PRN PO SBP>160 OR DBP>90; Start 07/02 at 15:45 Sodium Monofluorophosphate (Fleet Adult) 133 ml PRN DAILY PRN [place] CONSTIPATION; Start 07/02/18 at 15:45 Diphenhydramine HCl (Benadryl) 25 mg PRN Q4HRS PRN IVP ITCHING; Start 07/02/18 at 15:45 Docusate Sodium (Colace) 100 mg PRN BID PRN PO CONSTIPATION; Start 07/02/18 at 15:45 Albuterol Sulfate (Ventolin Neb Soln) 2.5 mg PRN Q4HRS PRN NEB SHORTNESS OF BREATH; Start 07/02/18 at 15:45 Guaifenesin (Robitussin) 200 mg PRN Q4HRS PRN PO COUGH; Start 07/02/18 at 15:45 Lorazepam (Ativan) 0.5 mg PRN Q4HRS PRN PO ANXIETY / AGITATION Last administered on 07/12/18 21:16; Start 07/02/18 at 15:45 Enoxaparin Sodium (Lovenox 40mg Syringe) 40 mg DAILY SQ Last administered on 08:41; Start 07/03/18 at 09:00 Hydralazine HCl (Apresoline Inj) 10 mg PRN Q4HRS PRN IVP ELEVATED BP, SEE COMMENTS Last administered on 07/04/18 14:20; Start 07/02/18 at 16:45 Nitroglycerin (Nitro-Bid Oint) 0.5 inch Q6HRS TP Last administered on 05:56; Start 07/02/18 at 17:30 Aspirin (Children'S Aspirin) 81 mg DAILY PO Last administered on 07/17/18 08: 41; Start 07/03/18 at 09:00 Lorazepam (Ativan) 2 mg PRN Q4HRS PRN IV ALCOHOL WITHDRAWAL; Start 07/02/18 at 18:30; Status Cancel Cefepime HCl (Maxipime) 2 gm Q8HRS IVP Last administered on 07/04/18at 14:00; Start 07/03/18 at 14:30; Stop 07/04/18 at 18:56; Status DC Acyclovir Sodium 730 mg/Dextrose 264.6 ml @ 264.6 mls/ hr Q8HRS IV Last administered on 07/04/18 05:07; Start 07/03/18 at 15:00; Stop 07/04/18 at 12:26 ; Status DC Vancomycin HCl (Vanco Per Pharmacy) 1 each PRN DAILY PRN MC SEE COMMENTS Last administered on 07/04/18at 12:31; Start 07/03/18 at 14:15; Stop 07/04/18 at 18:56 ; Status DC Ampicillin Sodium 2 gm/Sodium Chloride 100 ml @ 200 mls/hr Q4HRS IV Last administered on 07/04/18at 16:24; Start 07/03/18 at 16:00; Stop 07/04/18 at 18:56 ; Status DC Vancomycin HCl 1.5 gm/Sodium Chloride 500 ml @ 250 mls/hr 1X ONCE IV Last administered on 07/03/18at 17:54; Start 07/03/18 at 15:00; Stop 07/03/18 at 16:59 ; Status DC Levetiracetam 500 mg/Dextrose 105 ml @ 420 mls/hr Q12HR IV Last administered on 07/07/18at 09:55; Start 07/03/18 at 21:00; Stop 07/07/18 at 11:46; Status DC Divalproex Sodium (Depakote) 500 mg BID PO ; Start 07/03/18 at 21:00; Stop 07/04 at 16:20; Status DC Vancomycin HCl 1 gm/Sodium Chloride 250 ml @ 250 mls/hr Q12H IV Last administered on 07/04/18at 18:45; Start 07/04/18 at 06:00; Stop 07/04/18 at 18:58 ; Status DC Vancomycin HCl (Vancomycin Trough Level) 1 each 1X ONCE MC ; Start 07/05/18 at 05:30; Stop 07/05/18 at 05:31; Status Cancel Amino Acids/ Glycerin/ Electrolytes 1,000 ml @ 80 mls/hr [id number] IV Last administered on 07/16/18at 20:23; Start 07/03/18 at 19:15 Acyclovir Sodium 620 mg/Dextrose 262.4 ml @ 262.4 mls/ hr Q8HRS IV Last administered on 07/05/18at 05:05; Start 07/04/18 at 14:00; Stop 07/05/18 at 13:59 ; Status DC Lactobacillus Rhamnosus (Culturelle) 1 cap BID PO Last administered on at 08:41; Start 07/04/18 at 21:00 Valproic Acid 500 mg/Dextrose 55 ml @ 55 mls/hr Q8HRS IV Last administered on at 06:05; Start 07/04/18 at 17:00; Stop 07/10/18 at 12:12; Status DC Acyclovir Sodium 620 mg/Dextrose 112.4 ml @ 112.4 mls/ hr Q8HRS IV Last administered on 07/06/18at 05:19; Start 07/05/18 at 14:00; Stop 07/06/18 at 13:52 ; Status DC Cefepime HCl (Maxipime) 1 gm Q8HRS IVP Last administered on 07/08/18at 05:47; Start 07/04/18 at 22:00; Stop 07/08/18 at 09:20; Status DC Iohexol (Omnipaque 350 Mg/ml) 75 ml 1X ONCE IV Last administered on 07/05/18at 11:45; Start 07/05/18 at 11:15; Stop 07/05/18 at 11:16; Status DC Info (CONTRAST GIVEN -- Rx MONITORING) 1 each PRN DAILY PRN MC SEE COMMENTS; Start 07/05/18 at 11:30; Stop 07/07/18 at 11:29; Status DC Carbamazepine (TEGretol) 200 mg BID PO Last administered on 07/17/18at 08:41; Start 07/07/18 at 21:00 Ceftriaxone Sodium (Rocephin) 2 gm Q24H IVP Last administered on 07/09/18at 08:02 ; Start 07/08/18 at 10:00; Stop 07/09/18 at 11:51; Status DC Penicillin G Potassium [id number] unit/Dextrose 100 ml @ 100 mls/hr Q4HRS IV Last administered on 07/17/18at 08:38; Start 07/09/18 at 12:00 Barium Sulfate (Varibar Thin Liquid Apple) 148 gm 1X ONCE PO Last administered on 07/09/18at 13:53; Start 07/09/18 at 13:00; Stop 07/09/18 at 13:01; Status DC Non-Formulary Medication 1 ea QID PO Last administered on 07/13/18at 20:04; Start 07/11/18 at 21:00; Stop 07/14/18 at 15:35; Status DC Probenecid (Benemid) 500 mg QID PO Last administered on 07/17/18 08:41; Start 07/14/18 at 17:00 Barium Sulfate (Varibar Thin Liquid Apple) 148 gm 1X ONCE PO ; Start 07/16/18 at 14:00; Stop 07/16/18 at 14:01; Status DC Active Scripts Active Reported Zithromax (Azithromycin) 500 Mg Tablet 1 Tab PO DAILY Aspirin 81 Mg Tab.chew 81 Mg PO DAILY Hydrocodone-Apap 5-325 (Hydrocodone Bit/Acetaminophen) 1 Tab Tablet 1 Tab PO PRN Q6HRS PRN Vitals/I & O Vital Sign - Last 24 Hours 07/16/18 07/16/18 07/16/18 07/16/18 11:00 15:00 16:28 19:00 Temp 97.6 97.5 97.5 97.6 97.5 97.5 Pulse 51 52 52 55 Resp 16 16 16 B/P (MAP) 132/65 (87) 140/70 (93) 140/70 155/66 (95) Pulse Ox 96 97 99 O2 Delivery Room Air Room Air Room Air 07/16/18 07/16/18 07/17/18 07/17/18 20:05 22:54 00:08 03:00 Temp 98.6 97.8 98.6 97.8 Pulse 51 51 56 Resp 18 16 B/P (MAP) 133/65 (87) 133/65 136/60 (85) Pulse Ox 100 100 O2 Delivery Room Air Room Air Room Air 07/17/18 07/17/18 05:56 07:00 Temp 97.5 97.5 Pulse 51 58 Resp 18 B/P (MAP) 133/65 145/57 (86) Pulse Ox 98 O2 Delivery Room Air Intake and Output 07/16/18 07/16/18 07/17/18 14:59 22:59 06:59 Intake Total 1100 ml 100 ml Balance 1100 ml 100 ml Nutrition Consultation Dietary Evaluation: Recommendations by RD: PPN/TPN Comments: d/c ppn > 10 days continue diet per [employer] w/ supplements- encourage po intake monitor plan of care, may consider tube feedings to meet nutrition needs palliative following Expected Outcomes/Goals: new goal 07/11: to meet > 75% est nutr need via po intake- goal not met, ongoing Interpretation of weight loss: >7.5% in 3 months Malnutrition Findings: Weight Status: Appropriate JOHN CHAVEZ MD Jul 17, 2018 10:46
[2018-07-17 11:00] VITALS: BP 124/60
--- NOTE | 2018-07-17 11:02 | NUR ---
SW following pt. At this time, PC is attempting to address code status with Physicians or also trying to get a hold of family. SANDOVAL phoned pt's girlfriend, Chelsie, and left a voice mail requesting a call back with a phone number stating SW will call Police for welfare check if she doesn't return phone calls. Attempted to reach Judie Guevara but phone does not work. Palliative care was able to speak with Yareli Lyons and he has reported he will be at [facility] at 1999 to visit pt. SANDOVAL phoned [facility] on [facility], phone: [phone] and left a voice mail with Refugee correctional case records supervisor, Camila with a call back number. Attempts were made to [facility] but they did not know pt. [facility] received a phone call back from Zane, from [facility], phone: [phone] who reported they might be able to assist but needed information on pt's name and hospital location. SANDOVAL e-mailed Zane ( ) with only contact information to call SW back. Voice mail also was left to [facility] located in [facility], phone: [phone] with call back number. Discussed with CM Dipper Operator and Palliative care. Will continue to follow.
--- NOTE | 2018-07-17 12:37 | PDOC2 ---
PALLIATIVE CARE Palliative Care Note Palliative Care Patient more alert today per notes. Patient resting/did not awaken Spoke with Gloria Friend.[phone]. Will meet at 8pm юлия. Ethics Consult requested. Updated Dr. Jorge on patient condition and concerns. Patient more alert/less agitated this afternoon. Indicated "yes" when asked he knew Gloria and Amber. Acknowledged when stated Gloria was coming this evening to check on him Patient became agitated per staff. Was given Ativan 2mg IV for agitation. 2019 Friend Gloria did not show Staff to page if anyone visits. ISACC LR Jul 17, 2018 12:37
--- NOTE | 2018-07-17 14:31 | PDOC ---
PROGRESS NOTES Assessment Assessment Status epilepticus, controlled on 07/02/18. Complex focal seizure went status epilepticus on 07/02/16. Metabolic encephalopathy. Hypertensive encephalopathy. Hypertensive emergency, BP 214/112 mmHg. Disorientation. Confusion. Abnormal chorea like movements in left UE. HTN, poorly controlled. DM. PVD. Smoking. 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 Neurosyphilis. RECOMMENDATIONS/PLAN: Continue Tegretol 200 mg bid. Discontinued Keppra, sleepiness. Brain MRI was unable to perform on him due to metallic projects at the floor of the left maxillary sinus. Treat medical diseases. ID on team. Treated patient with PCN for neurosyphilis, chronic. Consulted Palliative Care Team. EEG on 07/03/18: Asymmetric cerebral activity. Diffuse slowing in the right side hemispheric area. Repeated EEG on 07/09/18: No seizure activity. HISTORY OF THE PRESENT ILLNESS: This is a 63-y-old descent male patient admitted due to noted altered mental state changes with abnormal movements in left side. Per staff, girlfriend mentioned noting him to be disoriented and EMS was called. He speaks Malay. He was noted with abnormal movements while on floor he was noted with seizure episodes. No seizure history reported by his girlfriend. No noted complains of any CP SOB leading to this event. No known hx of CAD but noted previously with PAD. It does not appear that he takes medications. Status epilepticus controlled after Ativan and Keppra administrations on 06/04/18 , but he has abnormal chorea like movements in his left UE. He stated on 07/06/18 that he had seizures in his left UE for many years. Seizure controlled on Carbamazepine. PAST MEDICAL HISTORY Cardiovascular: PAD; hx of asymptomatic SB. GI: GERD PAST SURGICAL HISTORY Left nephrectomy. FAMILY HISTORY Unknown SOCIAL HISTORY Smoke: <1 pack per day Lives: With friends. Reportedly was in nursing home for 20-30 years in his home country before coming here. ALLERGY: Unknown MEDICATIONS: Refer to MAR REVIEW OF SYSTEMS: Constitutional: No malnutrition, cachexia. Head: No traumatic brain or head injury. Skin: No edema, or rash. Ear: No infection. Eyes: No vision loss or color blindness. Nose: No bleeding or purulent discharges. Hearing: No hearing decrease. Neck: No injury. Cardiac: HTN. Pulmonary: Smoking. GI: No GI ulcer, GI bleeding. Urinary/genital: No dysuria, incontinence, urinary retention. Endocrinologic: Diabetes Mellitus. Skeletomuscular: No muscular atrophy. Neurological: see HP. Psychiatric: Denies drug use/abuse. Otherwise, not [id number] review of systems. PHYSICAL EXAMINATION: General appearance is in no acute distress. HEENT: Normocephalic and nontraumatic. Eyes, nose, ears, and throat are unremarkable. Neck is supple. No lymphadenopathy. No crepitus. Cardiovascular: S1, S2, regular rate and rhythm. Pulmonary: No rales heard. Abdomen: Bowel sounds are positive. Extremities: No rash, lesions, or edema. No restriction of range of motion NEUROLOGICAL EXAMINATION: Drowsiness, but arousable. Not follow commands nor answer questions. Not oriented to time, place and person. PERRL. EOMI. CN: no acute focal findings. Muscle tone: Increased in left UE. Muscle strength: 4+ DTR: 3+. Plantar reflex: Neutral response bilaterally Gait: not examined in bed. Sensory exam: no acute abnormal findings. Not able to access cerebellar signs. F-T-N test not performed due to not follow commands. Left hand and UE jerking like movements resolved. Objective Objective Vital Signs Date Time Temp Pulse Resp B/P (MAP) Pulse Ox O2 Delivery O2 Flow Rate FiO2 07/17/18 12:16 51 124/60 07/17/18 11:00 97.5 17 98 Room Air 97.5 Intake and Output 07/17/18 06:59 Intake Total 1200 ml Balance 1200 ml Intake Oral 0 ml IV Total 1200 ml # Voids 5 Vitals Signs Vitals VS - Last 72 Hours, by Label Date Time Temp Pulse Resp B/P (MAP) Pulse Ox O2 Delivery O2 Flow Rate FiO2 07/17/18 12:16 51 124/60 07/17/18 11:00 97.5 51 17 124/60 (81) 98 Room Air 97.5 07/17/18 07:00 97.5 58 18 145/57 (86) 98 Room Air 97.5 07/17/18 05:56 51 133/65 07/17/18 03:00 97.8 56 16 136/60 (85) 100 Room Air 97.8 07/17/18 00:08 51 133/65 07/16/18 22:54 98.6 51 18 133/65 (87) 100 Room Air 98.6 07/16/18 20:05 Room Air 07/16/18 19:00 97.5 55 16 155/66 (95) 99 Room Air 97.5 07/16/18 16:28 52 140/70 07/16/18 15:00 97.5 52 16 140/70 (93) 97 Room Air 97.5 07/16/18 11:00 97.6 51 16 132/65 (87) 96 Room Air 97.6 07/16/18 08:19 Room Air 07/16/18 08:09 Room Air 07/16/18 07:00 97.5 62 16 149/78 (101) 99 Room Air 97.5 Laboratory Laboratory Laboratory Tests Test 07/17/18 06:00 White Blood Count 5.8 x10^3/uL (4.0-11.0) Red Blood Count 5.16 x10^6/uL (4.30-5.70) Hemoglobin 12.4 g/dL (13.0-17.5) Hematocrit 39.6 % (39.0-53.0) Mean Corpuscular Volume 77 fL (79-100) Mean Corpuscular Hemoglobin 24 pg (25-35) Mean Corpuscular Hemoglobin Concent 31 g/dL (31-37) Red Cell Distribution Width 14.8 % (11.5-14.5) Platelet Count 258 x10^3/uL (140-400) Neutrophils (%) (Auto) 43 % (31-73) Lymphocytes (%) (Auto) 30 % (24-48) Monocytes (%) (Auto) 11 % (0-9) Eosinophils (%) (Auto) 16 % (0-3) Basophils (%) (Auto) 1 % (0-3) Neutrophils # (Auto) 2.5 x10^3uL (1.8-7.7) Lymphocytes # (Auto) 1.7 x10^3/uL (1.0-4.8) Monocytes # (Auto) 0.6 x10^3/uL (0.0-1.1) Eosinophils # (Auto) 0.9 x10^3/uL (0.0-0.7) Basophils # (Auto) 0.1 x10^3/uL (0.0-0.2) Sodium Level 139 mmol/L (136-145) Potassium Level 4.4 mmol/L (3.5-5.1) Chloride Level 103 mmol/L (98-107) Carbon Dioxide Level 29 mmol/L (21-32) Anion Gap 7 (6-14) Blood Urea Nitrogen 14 mg/dL (8-26) Creatinine 0.8 mg/dL (0.7-1.3) Estimated GFR (Cockcroft-Gault) 97.6 Glucose Level 90 mg/dL (70-99) Calcium Level 9.2 mg/dL (8.5-10.1) Microbiology 07/02/18 Blood Culture - Final, Complete NO GROWTH AFTER 5 DAYS 07/05/18 CSF Gram Stain - Final, Complete Comment Review of Relevant I have reviewed the following items kendrick (where applicable) has been applied. NICOLÁS CAMPOS MD Jul 17, 2018 14:31
[2018-07-17 15:00] VITALS: BP 164/65
[2018-07-17 19:00] VITALS: BP 132/62
[2018-07-17] MEDS: LORazepam 0.5 MG TABLET PO PRN (20:54)
[2018-07-17 23:00] VITALS: BP 166/72
[2018-07-18] MEDS: NITROGLYCERIN OINT 1 GM PACKET. TP SCH ×5 (00:22→23:54)
[2018-07-18] MEDS: PENICILLIN K IV SCH ×7 (00:25→23:54)
[2018-07-18] MEDS: DEXTROSE 5% IV SCH ×7 (00:25→23:54)
--- NOTE | 2018-07-18 03:10 | NUR ---
Went in with APPLIED PSYCHOLOGY TEACHER to obtain 0300 vitals. Pt became very agitated and would not let us complete vitals. Was told in report that he was scheduled to speak with palliative care on 07/17/18 but pt was not waking up. Asked if we could hold meds that make him sleepy, so have not administered any Ativan since PM meds were given. Will continue to monitor.
[2018-07-18 05:40] LABS: BASO # 0.1 x10^3/uL (0.0-0.2); BASO % 1 % (0-3); EOS # 0.7 x10^3/uL (0.0-0.7); EOS % 12 % (0-3); HEMATOCRIT 38.9 % (39.0-53.0); HEMOGLOBIN 12.7 g/dL (13.0-17.5); LYMPH # 1.5 x10^3/uL (1.0-4.8); LYMPH % 27 % (24-48); MEAN CORPUSCULAR HEMOGLOBIN 25 pg (25-35); MEAN CORPUSCULAR HGB CONC 33 g/dL (31-37); MEAN CORPUSCULAR VOLUME 76 fL (79-100); MONO # 0.5 x10^3/uL (0.0-1.1); MONO % 10 % (0-9); NEUT # 2.8 x10^3uL (1.8-7.7); NEUT % 50 % (31-73); PLATELET COUNT 260 x10^3/uL (140-400); RED CELL DISTRIBUTION WIDTH 14.8 % (11.5-14.5); WHITE BLOOD COUNT 5.6 x10^3/uL (4.0-11.0)
[2018-07-18 06:00] LABS: CALCIUM 9.3 mg/dL (8.5-10.1); CREATININE 0.8 mg/dL (0.7-1.3); GFR 97.6
[2018-07-18 07:00] VITALS: BP 156/68
--- NOTE | 2018-07-18 08:58 | NUR ---
SANDOVAL following pt. SW did not receive a phone call from Chelsie Lopez. She also did not show up to visit pt last night. SANDOVAL phoned MARIE and requested a welfare check on address listed on pt's face sheet. MARIE requested SANDOVAL to call back in about half an hour for un update. Will continue to follow.
[2018-07-18] MEDS: carBAMazepine 200 MG TABLET PO SCH ×2 (09:00→20:56)
[2018-07-18] MEDS: PROBENECID 500 MG TABLET PO SCH ×4 (09:00→20:56)
[2018-07-18] MEDS: LACTOBACILLUS RHAMNOSUS GG 1 CAPSULE. PO SCH ×2 (09:00→20:56)
[2018-07-18] MEDS: ENOXAPARIN 40 MG/0.4 ML SYRINGE. SQ SCH (09:00)
[2018-07-18] MEDS: ASPIRIN CHEWABLE 81 MG TABLET. PO SCH (09:00)
--- NOTE | 2018-07-18 10:30 | NUR ---
Spoke with an officer from [facility] and he reported there was nobody by the name Chelsie Lopez on the address provided. SW visited pt who appears to be more awake and verbalizing words like 'going home'. He was also continually trying to get out bed. Pt still requires max assistance with ADL's and is not ambulating. He also attempted to give SW with a phone number for his family but was not able to remember last two numbers ([phone]). Attempt to communicate with pt with an Georgian speaking Physician but Pt was not able to communicate. Pt speaks some Georgian words but is believed to speak possibly a different language (i.e 'Kurdish, Liberian'). Discussed with RN about using a blue phone to attempt these languages. SW left a voice mail to Chelsie again and unable to leave voice mail to [place]. Will continue to follow.
[2018-07-18] MEDS: AMINO AC 3%/ELECTROLYTE/GLYCER 1,000 ML IV SCH (10:37)
--- NOTE | 2018-07-18 10:52 | PDOC ---
Infectious Disease Note Subjective Subjective pt is awake, speaks some but unable to understand ( also even the phone pv installer tech cannot understand ) ROS ROS no n/v/d/fever Vital Sign Vital Signs Vital Signs Date Time Temp Pulse Resp B/P (MAP) Pulse Ox O2 Delivery O2 Flow Rate FiO2 07/18/18 07:00 98.1 52 17 156/68 (97) 100 Room Air 98.1 Physical Exam PHYSICAL EXAM GENERAL: comfortable HEENT: Pupils equally round, Oral mucosa moist, thick film/tongue NECK: Supple. LUNGS: Clear HEART: S1 and S2. ABDOMEN: Soft, no grimace or guarding to palpation, BS present EXTREMITIES: No edema and no cyanosis. SKIN: Warm and dry. No generalized rash. THEATER PROJECTIONIST: Opens eyes briefly to tactile stimuli, Noncommunicative, no seizure like activity/tremors PICC RUE - clean Labs Lab Laboratory Tests Test 07/18/18 05:15 White Blood Count 5.6 x10^3/uL (4.0-11.0) Red Blood Count 5.10 x10^6/uL (4.30-5.70) Hemoglobin 12.7 g/dL (13.0-17.5) Hematocrit 38.9 % (39.0-53.0) Mean Corpuscular Volume 76 fL (79-100) Mean Corpuscular Hemoglobin 25 pg (25-35) Mean Corpuscular Hemoglobin Concent 33 g/dL (31-37) Red Cell Distribution Width 14.8 % (11.5-14.5) Platelet Count 260 x10^3/uL (140-400) Neutrophils (%) (Auto) 50 % (31-73) Lymphocytes (%) (Auto) 27 % (24-48) Monocytes (%) (Auto) 10 % (0-9) Eosinophils (%) (Auto) 12 % (0-3) Basophils (%) (Auto) 1 % (0-3) Neutrophils # (Auto) 2.8 x10^3uL (1.8-7.7) Lymphocytes # (Auto) 1.5 x10^3/uL (1.0-4.8) Monocytes # (Auto) 0.5 x10^3/uL (0.0-1.1) Eosinophils # (Auto) 0.7 x10^3/uL (0.0-0.7) Basophils # (Auto) 0.1 x10^3/uL (0.0-0.2) Sodium Level 137 mmol/L (136-145) Potassium Level 4.0 mmol/L (3.5-5.1) Chloride Level 101 mmol/L (98-107) Carbon Dioxide Level 26 mmol/L (21-32) Anion Gap 10 (6-14) Blood Urea Nitrogen 14 mg/dL (8-26) Creatinine 0.8 mg/dL (0.7-1.3) Estimated GFR (Cockcroft-Gault) 97.6 Glucose Level 112 mg/dL (70-99) Calcium Level 9.3 mg/dL (8.5-10.1) Micro Microbiology 07/02/18 Blood Culture - Final, Complete NO GROWTH AFTER 5 DAYS 07/05/18 CSF Gram Stain - Final, Complete Objective Assessment LUE contractures, chorea like movements documented before Neurosyphilis + VDRL. RPR 1:16. HIV - neg TB spot indeterminate Encephalopathy - Unable to obtain MRI as the patient has metallic fragments in the floor of the left maxillary sinus. -s/p LP: CSF WBC 0, glucose 61, T protein 61.1. VDRL pending -HSV PCR negative; HIV nonreactive Status epilepticus. on Keppra Hypertensive encephalopathy. History of incarceration more than 20 years ago. Diabetes. Peripheral vascular disease. Left nephrectomy. Aspiration Pneumonitis Smoking Plan Plan of Care Cont PCN 4 million q 4. til 07/20 Maintain aspiration precaution. 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
[2018-07-18 11:00] VITALS: BP 157/59
--- NOTE | 2018-07-18 12:29 | PDOC ---
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 Diabetes 2 Peripheral vascular disease. Tobacco abuse. Left nephrectomy. Gastroesophageal reflux disease. Aspiration Pneumonitis Tremors (?), Age-related atrophy, and evidence of chronic small vessel disease SEVERE MALNUTRITION History of Present Illness History of Present Illness I saw him maybe 2 weeks ago and he seems better on He was able to tell me that he came from [place], that he has a mother or a I Also saw him work with physical therapy and he was able to do some leg exercises with PT cues Today, 07/18/18 - asleep I did not awaken PLAN: PCN through 414 per ID dc procalamine Full code Palliative and social work on case-trying to get a hold of family He seems to be improving for me I think after 4.14 abx he can go home with the girlfriend Vitals Vitals Vital Signs Date Time Temp Pulse Resp B/P (MAP) Pulse Ox O2 Delivery O2 Flow Rate FiO2 07/18/18 11:00 97.7 55 16 157/59 (91) 99 Room Air 97.7 Physical Exam Physical Exam GENERAL: comfortable HEENT: Pupils equally round, Oral mucosa moist, thick film/tongue NECK: Supple. LUNGS: Clear HEART: S1 and S2. ABDOMEN: Soft, no grimace or guarding to palpation, BS present EXTREMITIES: No edema and no cyanosis. SKIN: Warm and dry. No generalized rash. 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 eyes briefly to tactile stimuli, Noncommunicative, no seizure like activity/tremors PICC RUE - clean General: Alert, No acute distress, Other (mumbling responses to question, easy to arrouse, left arm and hand fasiculations, pleasantly confused) Heart: Regular rate, Normal S1, Normal S2, No murmurs Lungs: Clear, Other (airway patent, normal respiratory effort, no crackles or wheezing) Abdomen: Normal bowel sounds, Soft, No tenderness, No hepatosplenomegaly, No masses, Other (no grimace or guarding to palpation) Extremities: No clubbing, No cyanosis, No edema, Other (Strong peripheral pulses 3+, PICC RUE C/D/I) Skin: No rashes, No breakdown, No significant lesion Labs LABS Laboratory Tests Test 07/18/18 05:15 White Blood Count 5.6 x10^3/uL (4.0-11.0) Red Blood Count 5.10 x10^6/uL (4.30-5.70) Hemoglobin 12.7 g/dL (13.0-17.5) Hematocrit 38.9 % (39.0-53.0) Mean Corpuscular Volume 76 fL (79-100) Mean Corpuscular Hemoglobin 25 pg (25-35) Mean Corpuscular Hemoglobin Concent 33 g/dL (31-37) Red Cell Distribution Width 14.8 % (11.5-14.5) Platelet Count 260 x10^3/uL (140-400) Neutrophils (%) (Auto) 50 % (31-73) Lymphocytes (%) (Auto) 27 % (24-48) Monocytes (%) (Auto) 10 % (0-9) Eosinophils (%) (Auto) 12 % (0-3) Basophils (%) (Auto) 1 % (0-3) Neutrophils # (Auto) 2.8 x10^3uL (1.8-7.7) Lymphocytes # (Auto) 1.5 x10^3/uL (1.0-4.8) Monocytes # (Auto) 0.5 x10^3/uL (0.0-1.1) Eosinophils # (Auto) 0.7 x10^3/uL (0.0-0.7) Basophils # (Auto) 0.1 x10^3/uL (0.0-0.2) Sodium Level 137 mmol/L (136-145) Potassium Level 4.0 mmol/L (3.5-5.1) Chloride Level 101 mmol/L (98-107) Carbon Dioxide Level 26 mmol/L (21-32) Anion Gap 10 (6-14) Blood Urea Nitrogen 14 mg/dL (8-26) Creatinine 0.8 mg/dL (0.7-1.3) Estimated GFR (Cockcroft-Gault) 97.6 Glucose Level 112 mg/dL (70-99) Calcium Level 9.3 mg/dL (8.5-10.1) Review of Systems Review of Systems asleep, i did not awaken Assessment and Plan Assessmemt and Plan Problems Medical Problems: (1) Elevated troponin Status: Acute (2) Tremor Status: Acute Comment Review of Relevant I have reviewed the following items kendrick (where applicable) has been applied. Labs Laboratory Tests Test 07/17/18 06:00 07/18/18 05:15 White Blood Count 5.8 x10^3/uL (4.0-11.0) 5.6 x10^3/uL (4.0-11.0) Red Blood Count 5.16 x10^6/uL (4.30-5.70) 5.10 x10^6/uL (4.30-5.70) Hemoglobin 12.4 g/dL (13.0-17.5) 12.7 g/dL (13.0-17.5) Hematocrit 39.6 % (39.0-53.0) 38.9 % (39.0-53.0) Mean Corpuscular Volume 77 fL (79-100) 76 fL (79-100) Mean Corpuscular Hemoglobin 24 pg (25-35) 25 pg (25-35) Mean Corpuscular Hemoglobin Concent 31 g/dL (31-37) 33 g/dL (31-37) Red Cell Distribution Width 14.8 % (11.5-14.5) 14.8 % (11.5-14.5) Platelet Count 258 x10^3/uL (140-400) 260 x10^3/uL (140-400) Neutrophils (%) (Auto) 43 % (31-73) 50 % (31-73) Lymphocytes (%) (Auto) 30 % (24-48) 27 % (24-48) Monocytes (%) (Auto) 11 % (0-9) 10 % (0-9) Eosinophils (%) (Auto) 16 % (0-3) 12 % (0-3) Basophils (%) (Auto) 1 % (0-3) 1 % (0-3) Neutrophils # (Auto) 2.5 x10^3uL (1.8-7.7) 2.8 x10^3uL (1.8-7.7) Lymphocytes # (Auto) 1.7 x10^3/uL (1.0-4.8) 1.5 x10^3/uL (1.0-4.8) Monocytes # (Auto) 0.6 x10^3/uL (0.0-1.1) 0.5 x10^3/uL (0.0-1.1) Eosinophils # (Auto) 0.9 x10^3/uL (0.0-0.7) 0.7 x10^3/uL (0.0-0.7) Basophils # (Auto) 0.1 x10^3/uL (0.0-0.2) 0.1 x10^3/uL (0.0-0.2) Sodium Level 139 mmol/L (136-145) 137 mmol/L (136-145) Potassium Level 4.4 mmol/L (3.5-5.1) 4.0 mmol/L (3.5-5.1) Chloride Level 103 mmol/L (98-107) 101 mmol/L (98-107) Carbon Dioxide Level 29 mmol/L (21-32) 26 mmol/L (21-32) Anion Gap 7 (6-14) 10 (6-14) Blood Urea Nitrogen 14 mg/dL (8-26) 14 mg/dL (8-26) Creatinine 0.8 mg/dL (0.7-1.3) 0.8 mg/dL (0.7-1.3) Estimated GFR (Cockcroft-Gault) 97.6 97.6 Glucose Level 90 mg/dL (70-99) 112 mg/dL (70-99) Calcium Level 9.2 mg/dL (8.5-10.1) 9.3 mg/dL (8.5-10.1) Laboratory Tests Test 07/18/18 05:15 White Blood Count 5.6 x10^3/uL (4.0-11.0) Red Blood Count 5.10 x10^6/uL (4.30-5.70) Hemoglobin 12.7 g/dL (13.0-17.5) Hematocrit 38.9 % (39.0-53.0) Mean Corpuscular Volume 76 fL (79-100) Mean Corpuscular Hemoglobin 25 pg (25-35) Mean Corpuscular Hemoglobin Concent 33 g/dL (31-37) Red Cell Distribution Width 14.8 % (11.5-14.5) Platelet Count 260 x10^3/uL (140-400) Neutrophils (%) (Auto) 50 % (31-73) Lymphocytes (%) (Auto) 27 % (24-48) Monocytes (%) (Auto) 10 % (0-9) Eosinophils (%) (Auto) 12 % (0-3) Basophils (%) (Auto) 1 % (0-3) Neutrophils # (Auto) 2.8 x10^3uL (1.8-7.7) Lymphocytes # (Auto) 1.5 x10^3/uL (1.0-4.8) Monocytes # (Auto) 0.5 x10^3/uL (0.0-1.1) Eosinophils # (Auto) 0.7 x10^3/uL (0.0-0.7) Basophils # (Auto) 0.1 x10^3/uL (0.0-0.2) Sodium Level 137 mmol/L (136-145) Potassium Level 4.0 mmol/L (3.5-5.1) Chloride Level 101 mmol/L (98-107) Carbon Dioxide Level 26 mmol/L (21-32) Anion Gap 10 (6-14) Blood Urea Nitrogen 14 mg/dL (8-26) Creatinine 0.8 mg/dL (0.7-1.3) Estimated GFR (Cockcroft-Gault) 97.6 Glucose Level 112 mg/dL (70-99) Calcium Level 9.3 mg/dL (8.5-10.1) Microbiology 07/02/18 Blood Culture - Final, Complete NO GROWTH AFTER 5 DAYS 07/05/18 CSF Gram Stain - Final, Complete Medications Current Medications Sodium Chloride 1,000 ml @ 1,000 mls/hr 1X ONCE IV Last administered on at 10:00; Start 07/02/18 at 10:00; Stop 07/02/18 at 10:59; Status DC Lorazepam (Ativan) 0.5 mg 1X ONCE IV Last administered on 07/02/18at 12:12; Start 07/02/18 at 12:30; Stop 07/02/18 at 12:31; Status DC Aspirin (Children'S Aspirin) 324 mg 1X ONCE PO Last administered on 07/02/18at 13:18; Start 07/02/18 at 13:30; Stop 07/02/18 at 13:31; Status DC Acetaminophen (Tylenol) 650 mg PRN Q4HRS PRN PO FEVER; Start 07/02/18 at 14:30 ; Stop 07/02/18 at 18:38; Status DC Lorazepam (Ativan) 2 mg PRN Q4HRS PRN IV ANXIETY/AGITATION/ETOH WITHDRL Last administered on 07/17/18at 14:38; Start 07/02/18 at 15:30 Levetiracetam 750 mg/Dextrose 107.5 ml @ 420 mls/hr Q12HR IV Last administered on 07/03/18at 09:35; Start 07/02/18 at 16:30; Stop 07/03/18 at 14:17 ; Status DC Sodium Chloride (Normal Saline Flush 3ml) 3 ml QSHIFT PRN IV AFTER MEDS AND BLOOD DRAWS Last administered on 07/16/18at 07:35; Start 07/02/18 at 15:45 Sodium Chloride 1,000 ml @ 100 mls/hr Q10H IV Last administered on 07/02/18at 16:04; Start 07/02/18 at 16:30; Stop 07/04/18 at 16:37; Status DC Ondansetron HCl (Zofran) 4 mg PRN Q4HRS PRN IV NAUSEA/VOMITING; Start 07/02/18 at 15:45 Zolpidem Tartrate (Ambien) 5 mg PRN QHS PRN PO INSOMNIA; Start 07/02/18 at 15: 45 Acetaminophen (Tylenol) 650 mg PRN Q4HRS PRN PO TEMP OVER 100.4F OR MILD PAIN; Start 07/02/18 at 15:45 Al Hydroxide/Mg Hydroxide (Mylanta Plus Xs) 30 ml PRN DAILY PRN PO HEARTBURN / GAS; Start 07/02/18 at 15:45 Clonidine HCl (Catapres) 0.1 mg PRN Q6HRS PRN PO SBP>160 OR DBP>90; Start 07/02 at 15:45 Sodium Monofluorophosphate (Fleet Adult) 133 ml PRN DAILY PRN MT CONSTIPATION; Start 07/02/18 at 15:45 Diphenhydramine HCl (Benadryl) 25 mg PRN Q4HRS PRN IVP ITCHING; Start 07/02/18 at 15:45 Docusate Sodium (Colace) 100 mg PRN BID PRN PO CONSTIPATION; Start 07/02/18 at 15:45 Albuterol Sulfate (Ventolin Neb Soln) 2.5 mg PRN Q4HRS PRN NEB SHORTNESS OF BREATH; Start 07/02/18 at 15:45 Guaifenesin (Robitussin) 200 mg PRN Q4HRS PRN PO COUGH; Start 07/02/18 at 15:45 Lorazepam (Ativan) 0.5 mg PRN Q4HRS PRN PO ANXIETY / AGITATION Last administered on 07/17/18at 20:54; Start 07/02/18 at 15:45 Enoxaparin Sodium (Lovenox 40mg Syringe) 40 mg DAILY SQ Last administered on 08:41; Start 07/03/18 at 09:00 Hydralazine HCl (Apresoline Inj) 10 mg PRN Q4HRS PRN IVP ELEVATED BP, SEE COMMENTS Last administered on 07/04/18at 14:20; Start 07/02/18 at 16:45 Nitroglycerin (Nitro-Bid Oint) 0.5 inch Q6HRS TP Last administered on at 06:19; Start 07/02/18 at 17:30 Aspirin (Children'S Aspirin) 81 mg DAILY PO Last administered on 07/17/18 08: 41; Start 07/03/18 at 09:00 Lorazepam (Ativan) 2 mg PRN Q4HRS PRN IV ALCOHOL WITHDRAWAL; Start 07/02/18 at 18:30; Status Cancel Cefepime HCl (Maxipime) 2 gm Q8HRS IVP Last administered on 07/04/18at 14:00; Start 07/03/18 at 14:30; Stop 07/04/18 at 18:56; Status DC Acyclovir Sodium 730 mg/Dextrose 264.6 ml @ 264.6 mls/ hr Q8HRS IV Last administered on 07/04/18at 05:07; Start 07/03/18 at 15:00; Stop 07/04/18 at 12:26 ; Status DC Vancomycin HCl (Vanco Per Pharmacy) 1 each PRN DAILY PRN MC SEE COMMENTS Last administered on 07/04/18at 12:31; Start 07/03/18 at 14:15; Stop 07/04/18 at 18:56 ; Status DC Ampicillin Sodium 2 gm/Sodium Chloride 100 ml @ 200 mls/hr Q4HRS IV Last administered on 07/04/18at 16:24; Start 07/03/18 at 16:00; Stop 07/04/18 at 18:56 ; Status DC Vancomycin HCl 1.5 gm/Sodium Chloride 500 ml @ 250 mls/hr 1X ONCE IV Last administered on 07/03/18at 17:54; Start 07/03/18 at 15:00; Stop 07/03/18 at 16:59 ; Status DC Levetiracetam 500 mg/Dextrose 105 ml @ 420 mls/hr Q12HR IV Last administered on 07/07/18at 09:55; Start 07/03/18 at 21:00; Stop 07/07/18 at 11:46; Status DC Divalproex Sodium (Depakote) 500 mg BID PO ; Start 07/03/18 at 21:00; Stop 07/04 at 16:20; Status DC Vancomycin HCl 1 gm/Sodium Chloride 250 ml @ 250 mls/hr Q12H IV Last administered on 07/04/18at 18:45; Start 07/04/18 at 06:00; Stop 07/04/18 at 18:58 ; Status DC Vancomycin HCl (Vancomycin Trough Level) 1 each 1X ONCE MC ; Start 07/05/18 at 05:30; Stop 07/05/18 at 05:31; Status Cancel Amino Acids/ Glycerin/ Electrolytes 1,000 ml @ 80 mls/hr [id number] IV Last administered on 07/18/18at 10:37; Start 07/03/18 at 19:15 Acyclovir Sodium 620 mg/Dextrose 262.4 ml @ 262.4 mls/ hr Q8HRS IV Last administered on 07/05/18at 05:05; Start 07/04/18 at 14:00; Stop 07/05/18 at 13:59 ; Status DC Lactobacillus Rhamnosus (Culturelle) 1 cap BID PO Last administered on at 20:54; Start 07/04/18 at 21:00 Valproic Acid 500 mg/Dextrose 55 ml @ 55 mls/hr Q8HRS IV Last administered on at 06:05; Start 07/04/18 at 17:00; Stop 07/10/18 at 12:12; Status DC Acyclovir Sodium 620 mg/Dextrose 112.4 ml @ 112.4 mls/ hr Q8HRS IV Last administered on 07/06/18 05:19; Start 07/05/18 at 14:00; Stop 07/06/18 at 13:52 ; Status DC Cefepime HCl (Maxipime) 1 gm Q8HRS IVP Last administered on 07/08/18 05:47; Start 07/04/18 at 22:00; Stop 07/08/18 at 09:20; Status DC Iohexol (Omnipaque 350 Mg/ml) 75 ml 1X ONCE IV Last administered on 07/05/18 11:45; Start 07/05/18 at 11:15; Stop 07/05/18 at 11:16; Status DC Info (CONTRAST GIVEN -- Rx MONITORING) 1 each PRN DAILY PRN MC SEE COMMENTS; Start 07/05/18 at 11:30; Stop 07/07/18 at 11:29; Status DC Carbamazepine (TEGretol) 200 mg BID PO Last administered on 07/17/18at 20:54; Start 07/07/18 at 21:00 Ceftriaxone Sodium (Rocephin) 2 gm Q24H IVP Last administered on 07/09/18 08:02 ; Start 07/08/18 at 10:00; Stop 07/09/18 at 11:51; Status DC Penicillin G Potassium 8809983 unit/Dextrose 100 ml @ 100 mls/hr Q4HRS IV Last administered on 07/18/18at 10:37; Start 07/09/18 at 12:00 Barium Sulfate (Varibar Thin Liquid Apple) 148 gm 1X ONCE PO Last administered on 07/09/18 13:53; Start 07/09/18 at 13:00; Stop 07/09/18 at 13:01; Status DC Non-Formulary Medication 1 ea QID PO Last administered on 07/13/18at 20:04; Start 07/11/18 at 21:00; Stop 07/14/18 at 15:35; Status DC Probenecid (Benemid) 500 mg QID PO Last administered on 07/17/18at 20:54; Start 07/14/18 at 17:00 Barium Sulfate (Varibar Thin Liquid Apple) 148 gm 1X ONCE PO ; Start 07/16/18 at 14:00; Stop 07/16/18 at 14:01; Status DC Active Scripts Active Reported Zithromax (Azithromycin) 500 Mg Tablet 1 Tab PO DAILY Aspirin 81 Mg Tab.chew 81 Mg PO DAILY Hydrocodone-Apap 5-325 (Hydrocodone Bit/Acetaminophen) 1 Tab Tablet 1 Tab PO PRN Q6HRS PRN Vitals/I & O Vital Sign - Last 24 Hours 07/17/18 07/17/18 07/17/18 07/17/18 15:00 17:38 19:00 19:30 Temp 97.6 98.4 97.6 98.4 Pulse 67 67 54 Resp 17 18 B/P (MAP) 164/65 (98) 164/65 132/62 (85) Pulse Ox 100 97 O2 Delivery Room Air Room Air Room Air 07/17/18 07/18/18 07/18/18 07/18/18 23:00 00:22 03:00 06:19 Temp 97.6 97.6 Pulse 59 59 59 Resp 16 B/P (MAP) 166/72 (103) 166/72 166/72 Pulse Ox 92 O2 Delivery Room Air 07/18/18 07/18/18 07:00 11:00 Temp 98.1 97.7 98.1 97.7 Pulse 52 55 Resp 17 16 B/P (MAP) 156/68 (97) 157/59 (91) Pulse Ox 100 99 O2 Delivery Room Air Room Air Intake and Output 07/17/18 07/17/18 07/18/18 14:59 22:59 06:59 Intake Total 50 ml 120 ml 130 ml Output Total 250 ml Balance 50 ml 120 ml -120 ml Nutrition Consultation Dietary Evaluation: Recommendations by RD: PPN/TPN Comments: d/c ppn > 10 days continue diet per PROJECT SAFETY MANAGER w/ supplements- encourage po intake monitor plan of care, may consider tube feedings to meet nutrition needs palliative following Expected Outcomes/Goals: new goal 07/11: to meet > 75% est nutr need via po intake- goal not met, ongoing Interpretation of weight loss: >7.5% in 3 months Malnutrition Findings: Weight Status: Appropriate JOHN CHAVEZ MD Jul 18, 2018 12:29
--- NOTE | 2018-07-18 12:59 | NUR ---
SANDOVAL following pt. 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 SANDOVAL phoned [facility] and provided them with a new address to do a well fair check on pt's significant other, Franck Lopez. Discussed with Ethics committee. Will continue to follow.
--- NOTE | 2018-07-18 13:43 | PDOC2 ---
PALLIATIVE CARE Palliative Care Note Palliative CAre Patient agitated at time. Now resting quietly. Attempting to find contact information. Drivers License in bedside table. Copy placed on chart and then sent to security . Amber called [facility]. Spoke with her and attempted to arrange meeting with her. Per Amber patient speaks Upper Sorbian. Is from [place]en [place]. 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 No taxes taken out of salary. Amber states she would get back with staff about meeting юлия. ISACC LR Jul 18, 2018 13:43
[2018-07-18 15:00] VITALS: BP 124/60
--- NOTE | 2018-07-18 15:25 | PDOC ---
Provider Note Provider Note Ethics consult. 63 yo man immigrant from [place] who has lived here for several years. Now with general constitutional and neurologic decline since previous admit here 03/2018. He has neurosyphilis, hypertensive encephalopathy, dementia, hx of status epilepticus Has had 50 pound weight loss since previous admit. No longer ambulatory, incontinent of bowel and urine. He has had periods of combativeness requiring sedation. No sedation over the day today and he remains arousable but not conversant. He apparently speaks a dialect of Latvian that limits his conversation with other Latvian speakers here. We recommend pursuing DNR-DNI status and comfort measures only. We also recommend inpatient hospice status and stopping PPN. Social work service has made many efforts to contact his girlfriend without success. No family is apparently around and no successful contact made with anyone else who knows him. For middle or intermediate school principal disposition he will require assignment of guardianship which is currently underway. MILAN KUMAR MD Jul 18, 2018 15:25
--- NOTE | 2018-07-18 16:39 | NUR ---
SANDOVAL received a phone call from Chelsie Lopez. She reported she will take off from work tomorrow and will come to meet with SW/PC in the morning. She was unable to give me a definite time but reported she will come in the morning. She stated Pt is [place] and she will bring all the documents she has on him tomorrow. She also reported she will bring his friend that speaks nepali (she states pt speaks nepali but has a different dialect). Discussed with PC.
--- NOTE | 2018-07-18 17:01 | PDOC ---
PROGRESS NOTES Assessment Assessment Complex focal seizure went status epilepticus on 07/02/16. Metabolic encephalopathy. Hypertensive encephalopathy. Hypertensive emergency, BP 214/112 mmHg. HTN, poorly controlled. DM. PVD. Smoking. 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 Neurosyphilis. RECOMMENDATIONS/PLAN: Continue Tegretol 200 mg bid. Discontinued Keppra, sleepiness. Brain MRI was unable to perform on him due to metallic projects at the floor of the left maxillary sinus. Treat medical diseases. ID on team. Treated patient with PCN for neurosyphilis, chronic. Consulted Palliative Care Team. EEG on 07/03/18: Asymmetric cerebral activity. Diffuse slowing in the right side hemispheric area. Repeated EEG on 07/09/18: No seizure activity. HISTORY OF THE PRESENT ILLNESS: This is a 63-y-old descent male patient admitted due to noted altered mental state changes with abnormal movements in left side. Per staff, girlfriend mentioned noting him to be disoriented and EMS was called. He speaks Belarusian. He was noted with abnormal movements while on floor he was noted with seizure episodes. No seizure history reported by his girlfriend. No noted complains of any CP SOB leading to this event. No known hx of CAD but noted previously with PAD. It does not appear that he takes medications. Status epilepticus controlled after Ativan and Keppra administrations on 06/04/18 , but he has abnormal chorea like movements in his left UE. He stated on 07/06/18 that he had seizures in his left UE for many years. Seizure controlled on Carbamazepine. PAST MEDICAL HISTORY Cardiovascular: PAD; hx of asymptomatic SB. GI: GERD PAST SURGICAL HISTORY Left nephrectomy. FAMILY HISTORY Unknown SOCIAL HISTORY Smoke: <1 pack per day Lives: With friends. Reportedly was in [facility] [place]30 years in his home country before coming here. ALLERGY: Unknown MEDICATIONS: Refer to MAR REVIEW OF SYSTEMS: Constitutional: No malnutrition, cachexia. Head: No traumatic brain or head injury. Skin: No edema, or rash. Ear: No infection. Eyes: No vision loss or color blindness. Nose: No bleeding or purulent discharges. Hearing: No hearing decrease. Neck: No injury. Cardiac: HTN. Pulmonary: Smoking. GI: No GI ulcer, GI bleeding. Urinary/genital: No dysuria, incontinence, urinary retention. Endocrinologic: Diabetes Mellitus. Skeletomuscular: No muscular atrophy. Neurological: see HP. Psychiatric: Denies drug use/abuse. Otherwise, not [id number] review of systems. PHYSICAL EXAMINATION: General appearance is in no acute distress. HEENT: Normocephalic and nontraumatic. Eyes, nose, ears, and throat are unremarkable. Neck is supple. No lymphadenopathy. No crepitus. Cardiovascular: S1, S2, regular rate and rhythm. Pulmonary: No rales heard. Abdomen: Bowel sounds are positive. Extremities: No rash, lesions, or edema. No restriction of range of motion NEUROLOGICAL EXAMINATION: Awake. Talking. Not fully oriented to time, but knew place and person. PERRL. EOMI. CN: no acute focal findings. Muscle tone: Increased. Muscle strength: 4+ DTR: 3+. Plantar reflex: Neutral response bilaterally Gait: not examined in bed. Sensory exam: no acute abnormal findings. No acute cerebellar signs elicited. F-T-N test not performed due to not follow commands. Left hand and UE jerking like movements resolved. Objective Objective Vital Signs Date Time Temp Pulse Resp B/P (MAP) Pulse Ox O2 Delivery O2 Flow Rate FiO2 07/18/18 15:00 97.7 53 16 124/60 (81) 97 Room Air 97.7 Intake and Output 07/18/18 07:00 Intake Total 300 ml Output Total 250 ml Balance 50 ml Intake Oral 100 ml IV Total 200 ml Output Urine Total 250 ml # Voids 4 Vitals Signs Vitals VS - Last 72 Hours, by Label Date Time Temp Pulse Resp B/P (MAP) Pulse Ox O2 Delivery O2 Flow Rate FiO2 07/18/18 15:00 97.7 53 16 124/60 (81) 97 Room Air 97.7 07/18/18 11:00 97.7 55 16 157/59 (91) 99 Room Air 97.7 07/18/18 07:00 98.1 52 17 156/68 (97) 100 Room Air 98.1 07/18/18 06:19 59 166/72 07/18/18 03:00 97.6 97.6 07/18/18 00:22 59 166/72 07/17/18 23:00 59 16 166/72 (103) 92 Room Air 07/17/18 19:30 Room Air 07/17/18 19:00 98.4 54 18 132/62 (85) 97 Room Air 98.4 07/17/18 17:38 67 164/65 07/17/18 15:00 97.6 67 17 164/65 (98) 100 Room Air 97.6 07/17/18 12:16 51 124/60 07/17/18 11:00 97.5 51 17 124/60 (81) 98 Room Air 97.5 07/17/18 07:00 97.5 58 18 145/57 (86) 98 Room Air 97.5 Laboratory Laboratory Laboratory Tests Test 07/18/18 05:15 White Blood Count 5.6 x10^3/uL (4.0-11.0) Red Blood Count 5.10 x10^6/uL (4.30-5.70) Hemoglobin 12.7 g/dL (13.0-17.5) Hematocrit 38.9 % (39.0-53.0) Mean Corpuscular Volume 76 fL (79-100) Mean Corpuscular Hemoglobin 25 pg (25-35) Mean Corpuscular Hemoglobin Concent 33 g/dL (31-37) Red Cell Distribution Width 14.8 % (11.5-14.5) Platelet Count 260 x10^3/uL (140-400) Neutrophils (%) (Auto) 50 % (31-73) Lymphocytes (%) (Auto) 27 % (24-48) Monocytes (%) (Auto) 10 % (0-9) Eosinophils (%) (Auto) 12 % (0-3) Basophils (%) (Auto) 1 % (0-3) Neutrophils # (Auto) 2.8 x10^3uL (1.8-7.7) Lymphocytes # (Auto) 1.5 x10^3/uL (1.0-4.8) Monocytes # (Auto) 0.5 x10^3/uL (0.0-1.1) Eosinophils # (Auto) 0.7 x10^3/uL (0.0-0.7) Basophils # (Auto) 0.1 x10^3/uL (0.0-0.2) Sodium Level 137 mmol/L (136-145) Potassium Level 4.0 mmol/L (3.5-5.1) Chloride Level 101 mmol/L (98-107) Carbon Dioxide Level 26 mmol/L (21-32) Anion Gap 10 (6-14) Blood Urea Nitrogen 14 mg/dL (8-26) Creatinine 0.8 mg/dL (0.7-1.3) Estimated GFR (Cockcroft-Gault) 97.6 Glucose Level 112 mg/dL (70-99) Calcium Level 9.3 mg/dL (8.5-10.1) Microbiology 07/02/18 Blood Culture - Final, Complete NO GROWTH AFTER 5 DAYS 07/05/18 CSF Gram Stain - Final, Complete Comment Review of Relevant I have reviewed the following items kendrick (where applicable) has been applied. NICOLÁS CAMPOS MD Jul 18, 2018 17:01
[2018-07-18 19:00] VITALS: BP 141/60
[2018-07-18] MEDS: ZOLPIDEM 5 MG TABLET. PO PRN (22:09)
[2018-07-18 23:00] VITALS: BP 136/56
[2018-07-19] MEDS: AMINO AC 3%/ELECTROLYTE/GLYCER 1,000 ML IV SCH ×2 (01:19→15:49)
[2018-07-19 02:51] VITALS: BP 162/73
[2018-07-19] MEDS: PENICILLIN K IV SCH ×6 (04:06→22:56)
[2018-07-19] MEDS: DEXTROSE 5% IV SCH ×6 (04:06→22:56)
[2018-07-19] MEDS: ACETAMINOPHEN 325 MG TABLET. PO PRN (04:06)
[2018-07-19 04:34] LABS: BASO # 0.1 x10^3/uL (0.0-0.2); BASO % 1 % (0-3); EOS # 0.9 x10^3/uL (0.0-0.7); EOS % 14 % (0-3); HEMATOCRIT 38.5 % (39.0-53.0); HEMOGLOBIN 12.5 g/dL (13.0-17.5); LYMPH % 33 % (24-48); MEAN CORPUSCULAR HEMOGLOBIN 25 pg (25-35); MEAN CORPUSCULAR HGB CONC 32 g/dL (31-37); MEAN CORPUSCULAR VOLUME 76 fL (79-100); MONO # 0.7 x10^3/uL (0.0-1.1); MONO % 12 % (0-9); NEUT # 2.4 x10^3uL (1.8-7.7); NEUT % 40 % (31-73); PLATELET COUNT 269 x10^3/uL (140-400); RED BLOOD COUNT 5.08 x10^6/uL (4.30-5.70)
[2018-07-19 05:07] LABS: CALCIUM 9.2 mg/dL (8.5-10.1); CREATININE 0.8 mg/dL (0.7-1.3); GFR 97.6; POTASSIUM 4.2 mmol/L (3.5-5.1)
[2018-07-19] MEDS: NITROGLYCERIN OINT 1 GM PACKET. TP SCH ×4 (06:18→22:56)
[2018-07-19 07:00] VITALS: BP 172/60
[2018-07-19] MEDS: ENOXAPARIN 40 MG/0.4 ML SYRINGE. SQ SCH (07:55)
[2018-07-19] MEDS: ASPIRIN CHEWABLE 81 MG TABLET. PO SCH (07:55)
[2018-07-19] MEDS: LACTOBACILLUS RHAMNOSUS GG 1 CAPSULE. PO SCH ×2 (07:55→20:32)
[2018-07-19] MEDS: PROBENECID 500 MG TABLET PO SCH ×4 (07:55→20:32)
[2018-07-19] MEDS: carBAMazepine 200 MG TABLET PO SCH ×2 (07:55→20:32)
--- NOTE | 2018-07-19 10:32 | NUR ---
SANDOVAL phoned Chelsie at phone: [phone]. She reported she is looking for a ride to bring her to [facility] and couldn't give SW specific time. SANDOVAL requested she comes to [facility] before 1630 to speak with SANDOVAL and PC regarding dc plan. She verbalized understanding. Will continue to follow.
[2018-07-19 11:00] VITALS: BP 136/50
--- NOTE | 2018-07-19 11:29 | PDOC ---
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 Diabetes 2 Peripheral vascular disease. Tobacco abuse. Left nephrectomy. Gastroesophageal reflux disease. Aspiration Pneumonitis Tremors (?), Age-related atrophy, and evidence of chronic small vessel disease SEVERE MALNUTRITION History of Present Illness History of Present Illness About the same I did not start tube feeds as he can tolerate a regular diet is just that he needs coaxing to eat Continue ProcalAmine for now EARLIER ENTRY: I saw him maybe 2 weeks ago and he seems better on He was able to tell me that he came from [place], that he has a mother or a I Also saw him work with physical therapy and he was able to do some leg exercises with PT cues Today, 07/18/18 - asleep I did not awaken PLAN: PCN through 07/21 per ID HOme with girlfriend afterwards Full code Palliative and social work on case-trying to get a hold of family - there is a fam meet planned later sunday He seems to be improving/stable for me Vitals Vitals Vital Signs Date Time Temp Pulse Resp B/P (MAP) Pulse Ox O2 Delivery O2 Flow Rate FiO2 07/19/18 08:00 Room Air 2.0 07/19/18 07:00 97.6 58 16 172/60 (97) 98 97.6 Physical Exam Physical Exam GENERAL: comfortable HEENT: Pupils equally round, Oral mucosa moist, thick film/tongue NECK: Supple. LUNGS: Clear HEART: S1 and S2. ABDOMEN: Soft, no grimace or guarding to palpation, BS present EXTREMITIES: No edema and no cyanosis. SKIN: Warm and dry. No generalized rash. 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 eyes briefly to tactile stimuli, Noncommunicative, no seizure like activity/tremors PICC RUE - clean General: Alert, No acute distress, Other (mumbling responses to question, easy to arrouse, left arm and hand fasiculations, pleasantly confused) Heart: Regular rate, Normal S1, Normal S2, No murmurs Lungs: Clear, Other (airway patent, normal respiratory effort, no crackles or wheezing) Abdomen: Normal bowel sounds, Soft, No tenderness, No hepatosplenomegaly, No masses, Other (no grimace or guarding to palpation) Extremities: No clubbing, No cyanosis, No edema, Other (Strong peripheral pulses 3+, PICC RUE C/D/I) Skin: No rashes, No breakdown, No significant lesion Labs LABS Laboratory Tests Test 07/19/18 04:20 White Blood Count 6.0 x10^3/uL (4.0-11.0) Red Blood Count 5.08 x10^6/uL (4.30-5.70) Hemoglobin 12.5 g/dL (13.0-17.5) Hematocrit 38.5 % (39.0-53.0) Mean Corpuscular Volume 76 fL (79-100) Mean Corpuscular Hemoglobin 25 pg (25-35) Mean Corpuscular Hemoglobin Concent 32 g/dL (31-37) Red Cell Distribution Width 15.0 % (11.5-14.5) Platelet Count 269 x10^3/uL (140-400) Neutrophils (%) (Auto) 40 % (31-73) Lymphocytes (%) (Auto) 33 % (24-48) Monocytes (%) (Auto) 12 % (0-9) Eosinophils (%) (Auto) 14 % (0-3) Basophils (%) (Auto) 1 % (0-3) Neutrophils # (Auto) 2.4 x10^3uL (1.8-7.7) Lymphocytes # (Auto) 2.0 x10^3/uL (1.0-4.8) Monocytes # (Auto) 0.7 x10^3/uL (0.0-1.1) Eosinophils # (Auto) 0.9 x10^3/uL (0.0-0.7) Basophils # (Auto) 0.1 x10^3/uL (0.0-0.2) Sodium Level 137 mmol/L (136-145) Potassium Level 4.2 mmol/L (3.5-5.1) Chloride Level 100 mmol/L (98-107) Carbon Dioxide Level 28 mmol/L (21-32) Anion Gap 9 (6-14) Blood Urea Nitrogen 16 mg/dL (8-26) Creatinine 0.8 mg/dL (0.7-1.3) Estimated GFR (Cockcroft-Gault) 97.6 Glucose Level 91 mg/dL (70-99) Calcium Level 9.2 mg/dL (8.5-10.1) Review of Systems Review of Systems limited ROS, confused Assessment and Plan Assessmemt and Plan Problems Medical Problems: (1) Elevated troponin Status: Acute (2) Tremor Status: Acute Comment Review of Relevant I have reviewed the following items kendrick (where applicable) has been applied. Labs Laboratory Tests Test 07/18/18 05:15 07/19/18 04:20 White Blood Count 5.6 x10^3/uL (4.0-11.0) 6.0 x10^3/uL (4.0-11.0) Red Blood Count 5.10 x10^6/uL (4.30-5.70) 5.08 x10^6/uL (4.30-5.70) Hemoglobin 12.7 g/dL (13.0-17.5) 12.5 g/dL (13.0-17.5) Hematocrit 38.9 % (39.0-53.0) 38.5 % (39.0-53.0) Mean Corpuscular Volume 76 fL (79-100) 76 fL (79-100) Mean Corpuscular Hemoglobin 25 pg (25-35) 25 pg (25-35) Mean Corpuscular Hemoglobin Concent 33 g/dL (31-37) 32 g/dL (31-37) Red Cell Distribution Width 14.8 % (11.5-14.5) 15.0 % (11.5-14.5) Platelet Count 260 x10^3/uL (140-400) 269 x10^3/uL (140-400) Neutrophils (%) (Auto) 50 % (31-73) 40 % (31-73) Lymphocytes (%) (Auto) 27 % (24-48) 33 % (24-48) Monocytes (%) (Auto) 10 % (0-9) 12 % (0-9) Eosinophils (%) (Auto) 12 % (0-3) 14 % (0-3) Basophils (%) (Auto) 1 % (0-3) 1 % (0-3) Neutrophils # (Auto) 2.8 x10^3uL (1.8-7.7) 2.4 x10^3uL (1.8-7.7) Lymphocytes # (Auto) 1.5 x10^3/uL (1.0-4.8) 2.0 x10^3/uL (1.0-4.8) Monocytes # (Auto) 0.5 x10^3/uL (0.0-1.1) 0.7 x10^3/uL (0.0-1.1) Eosinophils # (Auto) 0.7 x10^3/uL (0.0-0.7) 0.9 x10^3/uL (0.0-0.7) Basophils # (Auto) 0.1 x10^3/uL (0.0-0.2) 0.1 x10^3/uL (0.0-0.2) Sodium Level 137 mmol/L (136-145) 137 mmol/L (136-145) Potassium Level 4.0 mmol/L (3.5-5.1) 4.2 mmol/L (3.5-5.1) Chloride Level 101 mmol/L (98-107) 100 mmol/L (98-107) Carbon Dioxide Level 26 mmol/L (21-32) 28 mmol/L (21-32) Anion Gap 10 (6-14) 9 (6-14) Blood Urea Nitrogen 14 mg/dL (8-26) 16 mg/dL (8-26) Creatinine 0.8 mg/dL (0.7-1.3) 0.8 mg/dL (0.7-1.3) Estimated GFR (Cockcroft-Gault) 97.6 97.6 Glucose Level 112 mg/dL (70-99) 91 mg/dL (70-99) Calcium Level 9.3 mg/dL (8.5-10.1) 9.2 mg/dL (8.5-10.1) Laboratory Tests Test 07/19/18 04:20 White Blood Count 6.0 x10^3/uL (4.0-11.0) Red Blood Count 5.08 x10^6/uL (4.30-5.70) Hemoglobin 12.5 g/dL (13.0-17.5) Hematocrit 38.5 % (39.0-53.0) Mean Corpuscular Volume 76 fL (79-100) Mean Corpuscular Hemoglobin 25 pg (25-35) Mean Corpuscular Hemoglobin Concent 32 g/dL (31-37) Red Cell Distribution Width 15.0 % (11.5-14.5) Platelet Count 269 x10^3/uL (140-400) Neutrophils (%) (Auto) 40 % (31-73) Lymphocytes (%) (Auto) 33 % (24-48) Monocytes (%) (Auto) 12 % (0-9) Eosinophils (%) (Auto) 14 % (0-3) Basophils (%) (Auto) 1 % (0-3) Neutrophils # (Auto) 2.4 x10^3uL (1.8-7.7) Lymphocytes # (Auto) 2.0 x10^3/uL (1.0-4.8) Monocytes # (Auto) 0.7 x10^3/uL (0.0-1.1) Eosinophils # (Auto) 0.9 x10^3/uL (0.0-0.7) Basophils # (Auto) 0.1 x10^3/uL (0.0-0.2) Sodium Level 137 mmol/L (136-145) Potassium Level 4.2 mmol/L (3.5-5.1) Chloride Level 100 mmol/L (98-107) Carbon Dioxide Level 28 mmol/L (21-32) Anion Gap 9 (6-14) Blood Urea Nitrogen 16 mg/dL (8-26) Creatinine 0.8 mg/dL (0.7-1.3) Estimated GFR (Cockcroft-Gault) 97.6 Glucose Level 91 mg/dL (70-99) Calcium Level 9.2 mg/dL (8.5-10.1) Microbiology 07/02/18 Blood Culture - Final, Complete NO GROWTH AFTER 5 DAYS 07/05/18 CSF Gram Stain - Final, Complete Medications Current Medications Sodium Chloride 1,000 ml @ 1,000 mls/hr 1X ONCE IV Last administered on at 10:00; Start 07/02/18 at 10:00; Stop 07/02/18 at 10:59; Status DC Lorazepam (Ativan) 0.5 mg 1X ONCE IV Last administered on 07/02/18at 12:12; Start 07/02/18 at 12:30; Stop 07/02/18 at 12:31; Status DC Aspirin (Children'S Aspirin) 324 mg 1X ONCE PO Last administered on 07/02/18 13:18; Start 07/02/18 at 13:30; Stop 07/02/18 at 13:31; Status DC Acetaminophen (Tylenol) 650 mg PRN Q4HRS PRN PO FEVER; Start 07/02/18 at 14:30 ; Stop 07/02/18 at 18:38; Status DC Lorazepam (Ativan) 2 mg PRN Q4HRS PRN IV ANXIETY/AGITATION/ETOH WITHDRL Last administered on 07/19/18 07:54; Start 07/02/18 at 15:30 Levetiracetam 750 mg/Dextrose 107.5 ml @ 420 mls/hr Q12HR IV Last administered on 07/03/18 09:35; Start 07/02/18 at 16:30; Stop 07/03/18 at 14:17 ; Status DC Sodium Chloride (Normal Saline Flush 3ml) 3 ml QSHIFT PRN IV AFTER MEDS AND BLOOD DRAWS Last administered on 07/16/18 07:35; Start 07/02/18 at 15:45 Sodium Chloride 1,000 ml @ 100 mls/hr Q10H IV Last administered on 07/02/18 16:04; Start 07/02/18 at 16:30; Stop 07/04/18 at 16:37; Status DC Ondansetron HCl (Zofran) 4 mg PRN Q4HRS PRN IV NAUSEA/VOMITING; Start 07/02/18 at 15:45 Zolpidem Tartrate (Ambien) 5 mg PRN QHS PRN PO INSOMNIA Last administered on 22:09; Start 07/02/18 at 15:45 Acetaminophen (Tylenol) 650 mg PRN Q4HRS PRN PO TEMP OVER 100.4F OR MILD PAIN Last administered on 07/19/18 04:06; Start 07/02/18 at 15:45 Al Hydroxide/Mg Hydroxide (Mylanta Plus Xs) 30 ml PRN DAILY PRN PO HEARTBURN / GAS; Start 07/02/18 at 15:45 Clonidine HCl (Catapres) 0.1 mg PRN Q6HRS PRN PO SBP>160 OR DBP>90; Start 07/02 at 15:45 Sodium Monofluorophosphate (Fleet Adult) 133 ml PRN DAILY PRN MA CONSTIPATION; Start 07/02/18 at 15:45 Diphenhydramine HCl (Benadryl) 25 mg PRN Q4HRS PRN IVP ITCHING; Start 07/02/18 at 15:45 Docusate Sodium (Colace) 100 mg PRN BID PRN PO CONSTIPATION; Start 07/02/18 at 15:45 Albuterol Sulfate (Ventolin Neb Soln) 2.5 mg PRN Q4HRS PRN NEB SHORTNESS OF BREATH; Start 07/02/18 at 15:45 Guaifenesin (Robitussin) 200 mg PRN Q4HRS PRN PO COUGH; Start 07/02/18 at 15:45 Lorazepam (Ativan) 0.5 mg PRN Q4HRS PRN PO ANXIETY / AGITATION Last administered on 07/17/18at 20:54; Start 07/02/18 at 15:45 Enoxaparin Sodium (Lovenox 40mg Syringe) 40 mg DAILY SQ Last administered on 03/27at 07:55; Start 07/03/18 at 09:00 Hydralazine HCl (Apresoline Inj) 10 mg PRN Q4HRS PRN IVP ELEVATED BP, SEE COMMENTS Last administered on 07/04/18at 14:20; Start 07/02/18 at 16:45 Nitroglycerin (Nitro-Bid Oint) 0.5 inch Q6HRS TP Last administered on 06:18; Start 07/02/18 at 17:30 Aspirin (Children'S Aspirin) 81 mg DAILY PO Last administered on 07/19/18at 07: 55; Start 07/03/18 at 09:00 Lorazepam (Ativan) 2 mg PRN Q4HRS PRN IV ALCOHOL WITHDRAWAL; Start 07/02/18 at 18:30; Status Cancel Cefepime HCl (Maxipime) 2 gm Q8HRS IVP Last administered on 07/04/18at 14:00; Start 07/03/18 at 14:30; Stop 07/04/18 at 18:56; Status DC Acyclovir Sodium 730 mg/Dextrose 264.6 ml @ 264.6 mls/ hr Q8HRS IV Last administered on 07/04/18at 05:07; Start 07/03/18 at 15:00; Stop 07/04/18 at 12:26 ; Status DC Vancomycin HCl (Vanco Per Pharmacy) 1 each PRN DAILY PRN MC SEE COMMENTS Last administered on 07/04/18at 12:31; Start 07/03/18 at 14:15; Stop 07/04/18 at 18:56 ; Status DC Ampicillin Sodium 2 gm/Sodium Chloride 100 ml @ 200 mls/hr Q4HRS IV Last administered on 07/04/18at 16:24; Start 07/03/18 at 16:00; Stop 07/04/18 at 18:56 ; Status DC Vancomycin HCl 1.5 gm/Sodium Chloride 500 ml @ 250 mls/hr 1X ONCE IV Last administered on 07/03/18at 17:54; Start 07/03/18 at 15:00; Stop 07/03/18 at 16:59 ; Status DC Levetiracetam 500 mg/Dextrose 105 ml @ 420 mls/hr Q12HR IV Last administered on 07/07/18at 09:55; Start 07/03/18 at 21:00; Stop 07/07/18 at 11:46; Status DC Divalproex Sodium (Depakote) 500 mg BID PO ; Start 07/03/18 at 21:00; Stop 07/04 at 16:20; Status DC Vancomycin HCl 1 gm/Sodium Chloride 250 ml @ 250 mls/hr Q12H IV Last administered on 07/04/18at 18:45; Start 07/04/18 at 06:00; Stop 07/04/18 at 18:58 ; Status DC Vancomycin HCl (Vancomycin Trough Level) 1 each 1X ONCE MC ; Start 07/05/18 at 05:30; Stop 07/05/18 at 05:31; Status Cancel Amino Acids/ Glycerin/ Electrolytes 1,000 ml @ 80 mls/hr [id number] IV Last administered on 07/19/18at 01:19; Start 07/03/18 at 19:15 Acyclovir Sodium 620 mg/Dextrose 262.4 ml @ 262.4 mls/ hr Q8HRS IV Last administered on 07/05/18at 05:05; Start 07/04/18 at 14:00; Stop 07/05/18 at 13:59 ; Status DC Lactobacillus Rhamnosus (Culturelle) 1 cap BID PO Last administered on 07:55; Start 07/04/18 at 21:00 Valproic Acid 500 mg/Dextrose 55 ml @ 55 mls/hr Q8HRS IV Last administered on 06:05; Start 07/04/18 at 17:00; Stop 07/10/18 at 12:12; Status DC Acyclovir Sodium 620 mg/Dextrose 112.4 ml @ 112.4 mls/ hr Q8HRS IV Last administered on 07/06/18 05:19; Start 07/05/18 at 14:00; Stop 07/06/18 at 13:52 ; Status DC Cefepime HCl (Maxipime) 1 gm Q8HRS IVP Last administered on 07/08/18 05:47; Start 07/04/18 at 22:00; Stop 07/08/18 at 09:20; Status DC Iohexol (Omnipaque 350 Mg/ml) 75 ml 1X ONCE IV Last administered on 07/05/18at 11:45; Start 07/05/18 at 11:15; Stop 07/05/18 at 11:16; Status DC Info (CONTRAST GIVEN -- Rx MONITORING) 1 each PRN DAILY PRN MC SEE COMMENTS; Start 07/05/18 at 11:30; Stop 07/07/18 at 11:29; Status DC Carbamazepine (TEGretol) 200 mg BID PO Last administered on 07/19/18 07:55; Start 07/07/18 at 21:00 Ceftriaxone Sodium (Rocephin) 2 gm Q24H IVP Last administered on 07/09/18 08:02 ; Start 07/08/18 at 10:00; Stop 07/09/18 at 11:51; Status DC Penicillin G Potassium [id number] unit/Dextrose 100 ml @ 100 mls/hr Q4HRS IV Last administered on 07/19/18 04:06; Start 07/09/18 at 12:00 Barium Sulfate (Varibar Thin Liquid Apple) 148 gm 1X ONCE PO Last administered on 07/09/18 13:53; Start 07/09/18 at 13:00; Stop 07/09/18 at 13:01; Status DC Non-Formulary Medication 1 ea QID PO Last administered on 4/6/19at 20:04; Start 07/11/18 at 21:00; Stop 07/14/18 at 15:35; Status DC Probenecid (Benemid) 500 mg QID PO Last administered on 07/19/18at 07:55; Start 07/14/18 at 17:00 Barium Sulfate (Varibar Thin Liquid Apple) 148 gm 1X ONCE PO ; Start 07/16/18 at 14:00; Stop 07/16/18 at 14:01; Status DC Active Scripts Active Reported Zithromax (Azithromycin) 500 Mg Tablet 1 Tab PO DAILY Aspirin 81 Mg Tab.chew 81 Mg PO DAILY Hydrocodone-Apap 5-325 (Hydrocodone Bit/Acetaminophen) 1 Tab Tablet 1 Tab PO PRN Q6HRS PRN Vitals/I & O Vital Sign - Last 24 Hours 07/18/18 07/18/18 07/18/18 07/18/18 15:00 19:00 19:45 23:00 Temp 97.7 97.4 97.6 97.7 97.4 97.6 Pulse 53 54 60 Resp 16 18 18 B/P (MAP) 124/60 (81) 141/60 (87) 136/56 (82) Pulse Ox 97 94 95 O2 Delivery Room Air Room Air Room Air Room Air 07/18/18 07/19/18 07/19/18 07/19/18 23:54 02:51 06:18 07:00 Temp 97.5 97.6 97.5 97.6 Pulse 60 61 61 58 Resp 18 16 B/P (MAP) 136/56 162/73 (102) 162/73 172/60 (97) Pulse Ox 99 98 O2 Delivery Room Air Room Air 07/19/18 08:00 O2 Delivery Room Air O2 Flow Rate 2.0 Intake and Output 07/18/18 07/18/18 07/19/18 14:59 22:59 06:59 Intake Total 10 ml 100 ml 1100 ml Balance 10 ml 100 ml 1100 ml Nutrition Consultation Dietary Evaluation: Recommendations by RD: Increase Calorie Intake, Protein supplementation Comments: PPN day - rec d/c. 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
--- NOTE | 2018-07-19 12:03 | PDOC ---
Infectious Disease Note Subjective Subjective pt is awake, speaks some but unable to understand ( also even the phone steward/stewardess lounge cannot understand ) Vital Sign Vital Signs Vital Signs Date Time Temp Pulse Resp B/P (MAP) Pulse Ox O2 Delivery O2 Flow Rate FiO2 07/19/18 08:00 Room Air 2.0 07/19/18 07:00 97.6 58 16 172/60 (97) 98 97.6 Physical Exam PHYSICAL EXAM GENERAL: comfortable HEENT: Pupils equally round, Oral mucosa moist, thick film/tongue NECK: Supple. LUNGS: Clear HEART: S1 and S2. ABDOMEN: Soft, no grimace or guarding to palpation, BS present EXTREMITIES: No edema and no cyanosis. SKIN: Warm and dry. No generalized rash. 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: Opens eyes briefly to tactile stimuli, Noncommunicative, no seizure like activity/tremors PICC RUE - clean Labs Lab Laboratory Tests Test 07/19/18 04:20 White Blood Count 6.0 x10^3/uL (4.0-11.0) Red Blood Count 5.08 x10^6/uL (4.30-5.70) Hemoglobin 12.5 g/dL (13.0-17.5) Hematocrit 38.5 % (39.0-53.0) Mean Corpuscular Volume 76 fL (79-100) Mean Corpuscular Hemoglobin 25 pg (25-35) Mean Corpuscular Hemoglobin Concent 32 g/dL (31-37) Red Cell Distribution Width 15.0 % (11.5-14.5) Platelet Count 269 x10^3/uL (140-400) Neutrophils (%) (Auto) 40 % (31-73) Lymphocytes (%) (Auto) 33 % (24-48) Monocytes (%) (Auto) 12 % (0-9) Eosinophils (%) (Auto) 14 % (0-3) Basophils (%) (Auto) 1 % (0-3) Neutrophils # (Auto) 2.4 x10^3uL (1.8-7.7) Lymphocytes # (Auto) 2.0 x10^3/uL (1.0-4.8) Monocytes # (Auto) 0.7 x10^3/uL (0.0-1.1) Eosinophils # (Auto) 0.9 x10^3/uL (0.0-0.7) Basophils # (Auto) 0.1 x10^3/uL (0.0-0.2) Sodium Level 137 mmol/L (136-145) Potassium Level 4.2 mmol/L (3.5-5.1) Chloride Level 100 mmol/L (98-107) Carbon Dioxide Level 28 mmol/L (21-32) Anion Gap 9 (6-14) Blood Urea Nitrogen 16 mg/dL (8-26) Creatinine 0.8 mg/dL (0.7-1.3) Estimated GFR (Cockcroft-Gault) 97.6 Glucose Level 91 mg/dL (70-99) Calcium Level 9.2 mg/dL (8.5-10.1) Micro Microbiology 07/02/18 Blood Culture - Final, Complete NO GROWTH AFTER 5 DAYS 07/05/18 CSF Gram Stain - Final, Complete Objective Assessment LUE contractures, chorea like movements documented before Neurosyphilis + VDRL. RPR 1:16. HIV - neg TB spot indeterminate Encephalopathy - Unable to obtain MRI as the patient has metallic fragments in the floor of the left maxillary sinus. -s/p LP: CSF WBC 0, glucose 61, T protein 61.1. VDRL pending -HSV PCR negative; HIV nonreactive Status epilepticus. on Keppra Hypertensive encephalopathy. History of incarceration more than 20 years ago. Diabetes. Peripheral vascular disease. Left nephrectomy. Aspiration Pneumonitis Smoking Plan Plan of Care Cont PCN 4 million q 4. til 07/20 Maintain aspiration precaution. 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
[2018-07-19 15:00] VITALS: BP 139/61
--- NOTE | 2018-07-19 15:56 | PDOC ---
PROGRESS NOTES Assessment Assessment Complex focal seizure went status epilepticus on 07/02/16. Metabolic encephalopathy. Hypertensive encephalopathy. Hypertensive emergency, BP 214/112 mmHg. HTN, poorly controlled. DM. PVD. Smoking. 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 Neurosyphilis. RECOMMENDATIONS/PLAN: Continue Tegretol 200 mg bid. Discontinued Keppra, sleepiness. Brain MRI was unable to perform on him due to metallic projects at the floor of the left maxillary sinus. Treat medical diseases. ID on team. Treated patient with PCN for neurosyphilis, chronic. Consulted Palliative Care Team. EEG on 07/03/18: Asymmetric cerebral activity. Diffuse slowing in the right side hemispheric area. Repeated EEG on 07/09/18: No seizure activity. HISTORY OF THE PRESENT ILLNESS: This is a 63-y-old descent male patient admitted due to noted altered mental state changes with abnormal movements in left side. Per staff, girlfriend mentioned noting him to be disoriented and EMS was called. He speaks Khmer. He was noted with abnormal movements while on floor he was noted with seizure episodes. No seizure history reported by his girlfriend. No noted complains of any CP SOB leading to this event. No known hx of CAD but noted previously with PAD. It does not appear that he takes medications. Status epilepticus controlled after Ativan and Keppra administrations on 06/04/18 , but he has abnormal chorea like movements in his left UE. He stated on 07/06/18 that he had seizures in his left UE for many years. Seizure controlled on Carbamazepine. PAST MEDICAL HISTORY Cardiovascular: PAD; hx of asymptomatic SB. GI: GERD PAST SURGICAL HISTORY Left nephrectomy. FAMILY HISTORY Unknown SOCIAL HISTORY Smoke: <1 pack per day Lives: With friends. Reportedly was in detention for 20-30 years in his home country before coming here. ALLERGY: Unknown MEDICATIONS: Refer to MAR REVIEW OF SYSTEMS: Constitutional: No malnutrition, cachexia. Head: No traumatic brain or head injury. Skin: No edema, or rash. Ear: No infection. Eyes: No vision loss or color blindness. Nose: No bleeding or purulent discharges. Hearing: No hearing decrease. Neck: No injury. Cardiac: HTN. Pulmonary: Smoking. GI: No GI ulcer, GI bleeding. Urinary/genital: No dysuria, incontinence, urinary retention. Endocrinologic: Diabetes Mellitus. Skeletomuscular: No muscular atrophy. Neurological: see HP. Psychiatric: Denies drug use/abuse. Otherwise, not [id number] review of systems. PHYSICAL EXAMINATION: General appearance is in no acute distress. HEENT: Normocephalic and nontraumatic. Eyes, nose, ears, and throat are unremarkable. Neck is supple. No lymphadenopathy. No crepitus. Cardiovascular: S1, S2, regular rate and rhythm. Pulmonary: No rales heard. Abdomen: Bowel sounds are positive. Extremities: No rash, lesions, or edema. No restriction of range of motion NEUROLOGICAL EXAMINATION: Drowsiness. Not fully oriented to time, but knew place and person. PERRL. EOMI. CN: no acute focal findings. Muscle tone: Increased. Muscle strength: 4+ DTR: 3+. Plantar reflex: Neutral response bilaterally Gait: not examined in bed. Sensory exam: no acute abnormal findings. No acute cerebellar signs elicited. F-T-N test not performed due to not follow commands. Left hand and UE jerking like movements resolved. Objective Objective Vital Signs Date Time Temp Pulse Resp B/P (MAP) Pulse Ox O2 Delivery O2 Flow Rate FiO2 07/19/18 15:00 97.7 61 16 139/61 (87) 95 Room Air 97.7 07/19/18 08:00 2.0 Intake and Output 07/19/18 07:00 Intake Total 1210 ml Balance 1210 ml Intake Oral 10 ml IV Total 1200 ml # Voids 5 Vitals Signs Vitals VS - Last 72 Hours, by Label Date Time Temp Pulse Resp B/P (MAP) Pulse Ox O2 Delivery O2 Flow Rate FiO2 07/19/18 15:00 97.7 61 16 139/61 (87) 95 Room Air 97.7 07/19/18 12:12 63 136/58 07/19/18 11:00 97.8 63 16 136/50 (78) 91 Room Air 97.8 07/19/18 08:00 Room Air 2.0 07/19/18 07:00 97.6 58 16 172/60 (97) 98 Room Air 97.6 07/19/18 06:18 61 162/73 07/19/18 02:51 97.5 61 18 162/73 (102) 99 Room Air 97.5 07/18/18 23:54 60 136/56 07/18/18 23:00 97.6 60 18 136/56 (82) 95 Room Air 97.6 07/18/18 19:45 Room Air 07/18/18 19:00 97.4 54 18 141/60 (87) 94 Room Air 97.4 07/18/18 15:00 97.7 53 16 124/60 (81) 97 Room Air 97.7 07/18/18 11:00 97.7 55 16 157/59 (91) 99 Room Air 97.7 07/18/18 07:00 98.1 52 17 156/68 (97) 100 Room Air 98.1 Laboratory Laboratory Laboratory Tests Test 07/19/18 04:20 White Blood Count 6.0 x10^3/uL (4.0-11.0) Red Blood Count 5.08 x10^6/uL (4.30-5.70) Hemoglobin 12.5 g/dL (13.0-17.5) Hematocrit 38.5 % (39.0-53.0) Mean Corpuscular Volume 76 fL (79-100) Mean Corpuscular Hemoglobin 25 pg (25-35) Mean Corpuscular Hemoglobin Concent 32 g/dL (31-37) Red Cell Distribution Width 15.0 % (11.5-14.5) Platelet Count 269 x10^3/uL (140-400) Neutrophils (%) (Auto) 40 % (31-73) Lymphocytes (%) (Auto) 33 % (24-48) Monocytes (%) (Auto) 12 % (0-9) Eosinophils (%) (Auto) 14 % (0-3) Basophils (%) (Auto) 1 % (0-3) Neutrophils # (Auto) 2.4 x10^3uL (1.8-7.7) Lymphocytes # (Auto) 2.0 x10^3/uL (1.0-4.8) Monocytes # (Auto) 0.7 x10^3/uL (0.0-1.1) Eosinophils # (Auto) 0.9 x10^3/uL (0.0-0.7) Basophils # (Auto) 0.1 x10^3/uL (0.0-0.2) Sodium Level 137 mmol/L (136-145) Potassium Level 4.2 mmol/L (3.5-5.1) Chloride Level 100 mmol/L (98-107) Carbon Dioxide Level 28 mmol/L (21-32) Anion Gap 9 (6-14) Blood Urea Nitrogen 16 mg/dL (8-26) Creatinine 0.8 mg/dL (0.7-1.3) Estimated GFR (Cockcroft-Gault) 97.6 Glucose Level 91 mg/dL (70-99) Calcium Level 9.2 mg/dL (8.5-10.1) Microbiology 07/02/18 Blood Culture - Final, Complete NO GROWTH AFTER 5 DAYS 07/05/18 CSF Gram Stain - Final, Complete Comment Review of Relevant I have reviewed the following items kendrick (where applicable) has been applied. NICOLÁS CAMPOS MD Jul 19, 2018 15:56
--- NOTE | 2018-07-19 16:05 | NUR ---
SANDOVAL phoned Chelsie at phone: [phone] but she hang up the phone as soon as she heard SANDOVAL name. FERNNADO OCHOA.
--- NOTE | 2018-07-19 16:06 | PDOC2 ---
PALLIATIVE CARE Palliative Care Note Palliative Care Meeting planned today with S/O Amber. phone: [phone] Attempted to reach at this number; busy signal at first then was able to leave a message to return call. [phone] Chelsie returned call to Adilene NICK. Spoke with patient also. Plan; Sunday 10 am meeting to discuss plan of care. ISACC LR Jul 19, 2018 16:06
--- NOTE | 2018-07-19 16:22 | NUR ---
SANDOVAL received a phone call from Chelsie who reported the person who will give her a ride won't be off until 1899. SANDOVAL discussed the need to discuss in person regarding dc plan to see if pt can meet criteria for services as she had claimed he is [place] citizen. She reported she has been getting house ready for pt and is getting a bed for him tomorrow. SANDOVAL requested Chelsie to come on Sunday and transferred phone to .
[2018-07-19 19:00] VITALS: BP 136/58
[2018-07-19] MEDS: ZOLPIDEM 5 MG TABLET. PO PRN (20:32)
[2018-07-19] MEDS: diphenhydrAMINE 50 MG/ML VIAL IVP PRN (20:36)
[2018-07-19] MEDS: HALOPERIDOL LACTATE 5 MG/ML VIAL. IVP PRN (21:16)
[2018-07-19 23:00] VITALS: BP 139/66
[2018-07-20] MEDS: diphenhydrAMINE 50 MG/ML VIAL IVP PRN ×2 (00:58→21:20)
[2018-07-20] MEDS: hydrALAZINE 20 MG/ML VIAL. IVP PRN (02:45)
[2018-07-20 02:52] VITALS: BP 165/69
[2018-07-20] MEDS: AMINO AC 3%/ELECTROLYTE/GLYCER 1,000 ML IV SCH ×2 (03:04→17:47)
[2018-07-20] MEDS: DEXTROSE 5% IV SCH ×6 (03:04→23:24)
[2018-07-20] MEDS: PENICILLIN K IV SCH ×6 (03:04→23:24)
[2018-07-20] MEDS: NITROGLYCERIN OINT 1 GM PACKET. TP SCH ×4 (05:04→23:22)
[2018-07-20] MEDS: HALOPERIDOL LACTATE 5 MG/ML VIAL. IVP PRN ×2 (05:23→19:30)
[2018-07-20 06:28] LABS: BASO # 0.1 x10^3/uL (0.0-0.2); BASO % 1 % (0-3); EOS # 0.7 x10^3/uL (0.0-0.7); EOS % 12 % (0-3); HEMATOCRIT 40.7 % (39.0-53.0); LYMPH # 1.5 x10^3/uL (1.0-4.8); LYMPH % 23 % (24-48); MEAN CORPUSCULAR HEMOGLOBIN 24 pg (25-35); MEAN CORPUSCULAR HGB CONC 32 g/dL (31-37); MEAN CORPUSCULAR VOLUME 77 fL (79-100); MONO # 0.8 x10^3/uL (0.0-1.1); MONO % 13 % (0-9); NEUT # 3.2 x10^3uL (1.8-7.7); NEUT % 51 % (31-73); PLATELET COUNT 277 x10^3/uL (140-400); RED BLOOD COUNT 5.32 x10^6/uL (4.30-5.70); RED CELL DISTRIBUTION WIDTH 15.1 % (11.5-14.5); WHITE BLOOD COUNT 6.3 x10^3/uL (4.0-11.0)
[2018-07-20 06:45] LABS: CALCIUM 9.3 mg/dL (8.5-10.1); CREATININE 0.8 mg/dL (0.7-1.3); GFR 97.6; POTASSIUM 3.7 mmol/L (3.5-5.1)
[2018-07-20 07:00] VITALS: BP 132/63
[2018-07-20] MEDS: ENOXAPARIN 40 MG/0.4 ML SYRINGE. SQ SCH (08:25)
[2018-07-20] MEDS: PROBENECID 500 MG TABLET PO SCH (08:25)
[2018-07-20] MEDS: LACTOBACILLUS RHAMNOSUS GG 1 CAPSULE. PO SCH ×2 (08:25→20:16)
[2018-07-20] MEDS: ASPIRIN CHEWABLE 81 MG TABLET. PO SCH (08:25)
[2018-07-20] MEDS: carBAMazepine 200 MG TABLET PO SCH ×2 (08:25→20:17)
--- NOTE | 2018-07-20 10:57 | PDOC ---
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 Diabetes 2 Peripheral vascular disease. Tobacco abuse. Left nephrectomy. Gastroesophageal reflux disease. Aspiration Pneumonitis Tremors (?), Age-related atrophy, and evidence of chronic small vessel disease SEVERE MALNUTRITION History of Present Illness History of Present Illness About the same I did not start tube feeds as he can tolerate a regular diet is just that he needs coaxing to eat Continue ProcalAmine for now confused today elytes stable fam meet planned sunday 10 AM re goals of care and code status PLAN: PCN through 07/21 per ID HOme with girlfriend afterwards hopefully Full code fam meet sunday AM Cont supprotive meds Vitals Vitals Vital Signs Date Time Temp Pulse Resp B/P (MAP) Pulse Ox O2 Delivery O2 Flow Rate FiO2 07/20/18 08:00 Room Air 07/20/18 07:00 97.9 107 14 132/63 (86) 97.9 07/20/18 02:52 97 07/19/18 08:00 2.0 Physical Exam Physical Exam GENERAL: comfortable HEENT: Pupils equally round, Oral mucosa moist, thick film/tongue NECK: Supple. LUNGS: Clear HEART: S1 and S2. ABDOMEN: Soft, no grimace or guarding to palpation, BS present EXTREMITIES: No edema and no cyanosis. SKIN: Warm and dry. No generalized rash. 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: Opens eyes briefly to tactile stimuli, Noncommunicative, no seizure like activity/tremors PICC RUE - clean General: Alert, No acute distress, Other (mumbling responses to question, easy to arrouse, left arm and hand fasiculations, pleasantly confused) Heart: Regular rate, Normal S1, Normal S2, No murmurs Lungs: Clear, Other (airway patent, normal respiratory effort, no crackles or wheezing) Abdomen: Normal bowel sounds, Soft, No tenderness, No hepatosplenomegaly, No masses, Other (no grimace or guarding to palpation) Extremities: No clubbing, No cyanosis, No edema, Other (Strong peripheral pulses 3+, PICC RUE C/D/I) Skin: No rashes, No breakdown, No significant lesion Labs LABS Laboratory Tests Test 07/20/18 05:45 White Blood Count 6.3 x10^3/uL (4.0-11.0) Red Blood Count 5.32 x10^6/uL (4.30-5.70) Hemoglobin 13.0 g/dL (13.0-17.5) Hematocrit 40.7 % (39.0-53.0) Mean Corpuscular Volume 77 fL (79-100) Mean Corpuscular Hemoglobin 24 pg (25-35) Mean Corpuscular Hemoglobin Concent 32 g/dL (31-37) Red Cell Distribution Width 15.1 % (11.5-14.5) Platelet Count 277 x10^3/uL (140-400) Neutrophils (%) (Auto) 51 % (31-73) Lymphocytes (%) (Auto) 23 % (24-48) Monocytes (%) (Auto) 13 % (0-9) Eosinophils (%) (Auto) 12 % (0-3) Basophils (%) (Auto) 1 % (0-3) Neutrophils # (Auto) 3.2 x10^3uL (1.8-7.7) Lymphocytes # (Auto) 1.5 x10^3/uL (1.0-4.8) Monocytes # (Auto) 0.8 x10^3/uL (0.0-1.1) Eosinophils # (Auto) 0.7 x10^3/uL (0.0-0.7) Basophils # (Auto) 0.1 x10^3/uL (0.0-0.2) Sodium Level 137 mmol/L (136-145) Potassium Level 3.7 mmol/L (3.5-5.1) Chloride Level 101 mmol/L (98-107) Carbon Dioxide Level 25 mmol/L (21-32) Anion Gap 11 (6-14) Blood Urea Nitrogen 18 mg/dL (8-26) Creatinine 0.8 mg/dL (0.7-1.3) Estimated GFR (Cockcroft-Gault) 97.6 Glucose Level 118 mg/dL (70-99) Calcium Level 9.3 mg/dL (8.5-10.1) Review of Systems Review of Systems confused hence limited ROS Assessment and Plan Assessmemt and Plan Problems Medical Problems: (1) Elevated troponin Status: Acute (2) Tremor Status: Acute Comment Review of Relevant I have reviewed the following items kendrick (where applicable) has been applied. Labs Laboratory Tests Test 07/19/18 04:20 07/20/18 05:45 White Blood Count 6.0 x10^3/uL (4.0-11.0) 6.3 x10^3/uL (4.0-11.0) Red Blood Count 5.08 x10^6/uL (4.30-5.70) 5.32 x10^6/uL (4.30-5.70) Hemoglobin 12.5 g/dL (13.0-17.5) 13.0 g/dL (13.0-17.5) Hematocrit 38.5 % (39.0-53.0) 40.7 % (39.0-53.0) Mean Corpuscular Volume 76 fL (79-100) 77 fL (79-100) Mean Corpuscular Hemoglobin 25 pg (25-35) 24 pg (25-35) Mean Corpuscular Hemoglobin Concent 32 g/dL (31-37) 32 g/dL (31-37) Red Cell Distribution Width 15.0 % (11.5-14.5) 15.1 % (11.5-14.5) Platelet Count 269 x10^3/uL (140-400) 277 x10^3/uL (140-400) Neutrophils (%) (Auto) 40 % (31-73) 51 % (31-73) Lymphocytes (%) (Auto) 33 % (24-48) 23 % (24-48) Monocytes (%) (Auto) 12 % (0-9) 13 % (0-9) Eosinophils (%) (Auto) 14 % (0-3) 12 % (0-3) Basophils (%) (Auto) 1 % (0-3) 1 % (0-3) Neutrophils # (Auto) 2.4 x10^3uL (1.8-7.7) 3.2 x10^3uL (1.8-7.7) Lymphocytes # (Auto) 2.0 x10^3/uL (1.0-4.8) 1.5 x10^3/uL (1.0-4.8) Monocytes # (Auto) 0.7 x10^3/uL (0.0-1.1) 0.8 x10^3/uL (0.0-1.1) Eosinophils # (Auto) 0.9 x10^3/uL (0.0-0.7) 0.7 x10^3/uL (0.0-0.7) Basophils # (Auto) 0.1 x10^3/uL (0.0-0.2) 0.1 x10^3/uL (0.0-0.2) Sodium Level 137 mmol/L (136-145) 137 mmol/L (136-145) Potassium Level 4.2 mmol/L (3.5-5.1) 3.7 mmol/L (3.5-5.1) Chloride Level 100 mmol/L (98-107) 101 mmol/L (98-107) Carbon Dioxide Level 28 mmol/L (21-32) 25 mmol/L (21-32) Anion Gap 9 (6-14) 11 (6-14) Blood Urea Nitrogen 16 mg/dL (8-26) 18 mg/dL (8-26) Creatinine 0.8 mg/dL (0.7-1.3) 0.8 mg/dL (0.7-1.3) Estimated GFR (Cockcroft-Gault) 97.6 97.6 Glucose Level 91 mg/dL (70-99) 118 mg/dL (70-99) Calcium Level 9.2 mg/dL (8.5-10.1) 9.3 mg/dL (8.5-10.1) Laboratory Tests Test 07/20/18 05:45 White Blood Count 6.3 x10^3/uL (4.0-11.0) Red Blood Count 5.32 x10^6/uL (4.30-5.70) Hemoglobin 13.0 g/dL (13.0-17.5) Hematocrit 40.7 % (39.0-53.0) Mean Corpuscular Volume 77 fL (79-100) Mean Corpuscular Hemoglobin 24 pg (25-35) Mean Corpuscular Hemoglobin Concent 32 g/dL (31-37) Red Cell Distribution Width 15.1 % (11.5-14.5) Platelet Count 277 x10^3/uL (140-400) Neutrophils (%) (Auto) 51 % (31-73) Lymphocytes (%) (Auto) 23 % (24-48) Monocytes (%) (Auto) 13 % (0-9) Eosinophils (%) (Auto) 12 % (0-3) Basophils (%) (Auto) 1 % (0-3) Neutrophils # (Auto) 3.2 x10^3uL (1.8-7.7) Lymphocytes # (Auto) 1.5 x10^3/uL (1.0-4.8) Monocytes # (Auto) 0.8 x10^3/uL (0.0-1.1) Eosinophils # (Auto) 0.7 x10^3/uL (0.0-0.7) Basophils # (Auto) 0.1 x10^3/uL (0.0-0.2) Sodium Level 137 mmol/L (136-145) Potassium Level 3.7 mmol/L (3.5-5.1) Chloride Level 101 mmol/L (98-107) Carbon Dioxide Level 25 mmol/L (21-32) Anion Gap 11 (6-14) Blood Urea Nitrogen 18 mg/dL (8-26) Creatinine 0.8 mg/dL (0.7-1.3) Estimated GFR (Cockcroft-Gault) 97.6 Glucose Level 118 mg/dL (70-99) Calcium Level 9.3 mg/dL (8.5-10.1) Microbiology 07/02/18 Blood Culture - Final, Complete NO GROWTH AFTER 5 DAYS 07/05/18 CSF Gram Stain - Final, Complete Medications Current Medications Sodium Chloride 1,000 ml @ 1,000 mls/hr 1X ONCE IV Last administered on at 10:00; Start 07/02/18 at 10:00; Stop 07/02/18 at 10:59; Status DC Lorazepam (Ativan) 0.5 mg 1X ONCE IV Last administered on 07/02/18at 12:12; Start 07/02/18 at 12:30; Stop 07/02/18 at 12:31; Status DC Aspirin (Children'S Aspirin) 324 mg 1X ONCE PO Last administered on 07/02/18at 13:18; Start 07/02/18 at 13:30; Stop 07/02/18 at 13:31; Status DC Acetaminophen (Tylenol) 650 mg PRN Q4HRS PRN PO FEVER; Start 07/02/18 at 14:30 ; Stop 07/02/18 at 18:38; Status DC Lorazepam (Ativan) 2 mg PRN Q4HRS PRN IV ANXIETY/AGITATION/ETOH WITHDRL Last administered on 07/20/18 08:25; Start 07/02/18 at 15:30 Levetiracetam 750 mg/Dextrose 107.5 ml @ 420 mls/hr Q12HR IV Last administered on 07/03/18 09:35; Start 07/02/18 at 16:30; Stop 07/03/18 at 14:17 ; Status DC Sodium Chloride (Normal Saline Flush 3ml) 3 ml QSHIFT PRN IV AFTER MEDS AND BLOOD DRAWS Last administered on 07/16/18 07:35; Start 07/02/18 at 15:45 Sodium Chloride 1,000 ml @ 100 mls/hr Q10H IV Last administered on 07/02/18 16:04; Start 07/02/18 at 16:30; Stop 07/04/18 at 16:37; Status DC Ondansetron HCl (Zofran) 4 mg PRN Q4HRS PRN IV NAUSEA/VOMITING; Start 07/02/18 at 15:45 Zolpidem Tartrate (Ambien) 5 mg PRN QHS PRN PO INSOMNIA Last administered on 20:32; Start 07/02/18 at 15:45 Acetaminophen (Tylenol) 650 mg PRN Q4HRS PRN PO TEMP OVER 100.4F OR MILD PAIN Last administered on 07/19/18 04:06; Start 07/02/18 at 15:45 Al Hydroxide/Mg Hydroxide (Mylanta Plus Xs) 30 ml PRN DAILY PRN PO HEARTBURN / GAS; Start 07/02/18 at 15:45 Clonidine HCl (Catapres) 0.1 mg PRN Q6HRS PRN PO SBP>160 OR DBP>90; Start 07/02 at 15:45 Sodium Monofluorophosphate (Fleet Adult) 133 ml PRN DAILY PRN NM CONSTIPATION; Start 07/02/18 at 15:45 Diphenhydramine HCl (Benadryl) 25 mg PRN Q4HRS PRN IVP ITCHING Last administered on 07/20/18at 00:58; Start 07/02/18 at 15:45 Docusate Sodium (Colace) 100 mg PRN BID PRN PO CONSTIPATION; Start 07/02/18 at 15:45 Albuterol Sulfate (Ventolin Neb Soln) 2.5 mg PRN Q4HRS PRN NEB SHORTNESS OF BREATH; Start 07/02/18 at 15:45 Guaifenesin (Robitussin) 200 mg PRN Q4HRS PRN PO COUGH; Start 07/02/18 at 15:45 Lorazepam (Ativan) 0.5 mg PRN Q4HRS PRN PO ANXIETY / AGITATION Last administered on 07/17/18at 20:54; Start 07/02/18 at 15:45 Enoxaparin Sodium (Lovenox 40mg Syringe) 40 mg DAILY SQ Last administered on at 08:25; Start 07/03/18 at 09:00 Hydralazine HCl (Apresoline Inj) 10 mg PRN Q4HRS PRN IVP ELEVATED BP, SEE COMMENTS Last administered on 07/20/18at 02:45; Start 07/02/18 at 16:45 Nitroglycerin (Nitro-Bid Oint) 0.5 inch Q6HRS TP Last administered on at 05:04; Start 07/02/18 at 17:30 Aspirin (Children'S Aspirin) 81 mg DAILY PO Last administered on 07/20/18 08: 25; Start 07/03/18 at 09:00 Lorazepam (Ativan) 2 mg PRN Q4HRS PRN IV ALCOHOL WITHDRAWAL; Start 07/02/18 at 18:30; Status Cancel Cefepime HCl (Maxipime) 2 gm Q8HRS IVP Last administered on 07/04/18at 14:00; Start 07/03/18 at 14:30; Stop 07/04/18 at 18:56; Status DC Acyclovir Sodium 730 mg/Dextrose 264.6 ml @ 264.6 mls/ hr Q8HRS IV Last administered on 07/04/18at 05:07; Start 07/03/18 at 15:00; Stop 07/04/18 at 12:26 ; Status DC Vancomycin HCl (Vanco Per Pharmacy) 1 each PRN DAILY PRN MC SEE COMMENTS Last administered on 07/04/18at 12:31; Start 07/03/18 at 14:15; Stop 07/04/18 at 18:56 ; Status DC Ampicillin Sodium 2 gm/Sodium Chloride 100 ml @ 200 mls/hr Q4HRS IV Last administered on 07/04/18at 16:24; Start 07/03/18 at 16:00; Stop 07/04/18 at 18:56 ; Status DC Vancomycin HCl 1.5 gm/Sodium Chloride 500 ml @ 250 mls/hr 1X ONCE IV Last administered on 07/03/18at 17:54; Start 07/03/18 at 15:00; Stop 07/03/18 at 16:59 ; Status DC Levetiracetam 500 mg/Dextrose 105 ml @ 420 mls/hr Q12HR IV Last administered on 07/07/18at 09:55; Start 07/03/18 at 21:00; Stop 07/07/18 at 11:46; Status DC Divalproex Sodium (Depakote) 500 mg BID PO ; Start 07/03/18 at 21:00; Stop 07/04 at 16:20; Status DC Vancomycin HCl 1 gm/Sodium Chloride 250 ml @ 250 mls/hr Q12H IV Last administered on 07/04/18at 18:45; Start 07/04/18 at 06:00; Stop 07/04/18 at 18:58 ; Status DC Vancomycin HCl (Vancomycin Trough Level) 1 each 1X ONCE MC ; Start 07/05/18 at 05:30; Stop 07/05/18 at 05:31; Status Cancel Amino Acids/ Glycerin/ Electrolytes 1,000 ml @ 80 mls/hr [id number] IV Last administered on 07/20/18at 03:04; Start 07/03/18 at 19:15 Acyclovir Sodium 620 mg/Dextrose 262.4 ml @ 262.4 mls/ hr Q8HRS IV Last administered on 07/05/18at 05:05; Start 07/04/18 at 14:00; Stop 07/05/18 at 13:59 ; Status DC Lactobacillus Rhamnosus (Culturelle) 1 cap BID PO Last administered on at 08:25; Start 07/04/18 at 21:00 Valproic Acid 500 mg/Dextrose 55 ml @ 55 mls/hr Q8HRS IV Last administered on 06:05; Start 07/04/18 at 17:00; Stop 07/10/18 at 12:12; Status DC Acyclovir Sodium 620 mg/Dextrose 112.4 ml @ 112.4 mls/ hr Q8HRS IV Last administered on 07/06/18at 05:19; Start 07/05/18 at 14:00; Stop 07/06/18 at 13:52 ; Status DC Cefepime HCl (Maxipime) 1 gm Q8HRS IVP Last administered on 07/08/18at 05:47; Start 07/04/18 at 22:00; Stop 07/08/18 at 09:20; Status DC Iohexol (Omnipaque 350 Mg/ml) 75 ml 1X ONCE IV Last administered on 07/05/18at 11:45; Start 07/05/18 at 11:15; Stop 07/05/18 at 11:16; Status DC Info (CONTRAST GIVEN -- Rx MONITORING) 1 each PRN DAILY PRN MC SEE COMMENTS; Start 07/05/18 at 11:30; Stop 07/07/18 at 11:29; Status DC Carbamazepine (TEGretol) 200 mg BID PO Last administered on 07/20/18at 08:25; Start 07/07/18 at 21:00 Ceftriaxone Sodium (Rocephin) 2 gm Q24H IVP Last administered on 07/09/18 08:02 ; Start 07/08/18 at 10:00; Stop 07/09/18 at 11:51; Status DC Penicillin G Potassium [id number] unit/Dextrose 100 ml @ 100 mls/hr Q4HRS IV Last administered on 07/20/18at 08:25; Start 07/09/18 at 12:00 Barium Sulfate (Varibar Thin Liquid Apple) 148 gm 1X ONCE PO Last administered on 07/09/18 13:53; Start 07/09/18 at 13:00; Stop 07/09/18 at 13:01; Status DC Non-Formulary Medication 1 ea QID PO Last administered on 07/13/18at 20:04; Start 07/11/18 at 21:00; Stop 07/14/18 at 15:35; Status DC Probenecid (Benemid) 500 mg QID PO Last administered on 07/20/18at 08:25; Start 07/14/18 at 17:00 Barium Sulfate (Varibar Thin Liquid Apple) 148 gm 1X ONCE PO ; Start 07/16/18 at 14:00; Stop 07/16/18 at 14:01; Status DC Haloperidol Lactate (Haldol Inj) 5 mg PRN Q6HRS PRN IVP AGITATION Last administered on 07/20/18at 05:23; Start 07/19/18 at 21:15 Active Scripts Active Reported Zithromax (Azithromycin) 500 Mg Tablet 1 Tab PO DAILY Aspirin 81 Mg Tab.chew 81 Mg PO DAILY Hydrocodone-Apap 5-325 (Hydrocodone Bit/Acetaminophen) 1 Tab Tablet 1 Tab PO PRN Q6HRS PRN Vitals/I & O Vital Sign - Last 24 Hours 07/19/18 07/19/18 07/19/18 07/19/18 11:00 12:12 15:00 17:03 Temp 97.8 97.7 97.8 97.7 Pulse 63 63 61 61 Resp 16 16 B/P (MAP) 136/50 (78) 136/58 139/61 (87) 139/61 Pulse Ox 91 95 O2 Delivery Room Air Room Air 07/19/18 07/19/18 07/19/18 07/19/18 19:00 20:02 22:56 23:00 Temp 97.5 98.0 97.5 98.0 Pulse 57 57 65 Resp 18 18 B/P (MAP) 136/58 (84) 136/58 139/66 (90) Pulse Ox 99 99 O2 Delivery Room Air Room Air Room Air 07/20/18 07/20/18 07/20/18 07/20/18 02:45 02:52 05:04 07:00 Temp 97.7 97.9 97.7 97.9 Pulse 69 69 109 107 Resp 18 14 B/P (MAP) 165/69 165/69 (101) 121/51 132/63 (86) Pulse Ox 97 O2 Delivery Room Air Room Air 07/20/18 08:00 O2 Delivery Room Air Intake and Output 07/19/18 07/19/18 07/20/18 14:59 22:59 06:59 Intake Total 250 ml 1550 ml 100 ml Balance 250 ml 1550 ml 100 ml Nutrition Consultation Dietary Evaluation: Recommendations by RD: Increase Calorie Intake, Protein supplementation Comments: PPN day 17- rec d/c. continue diet per DRAW OFF WORKER w/ supplements- encourage po intake monitor plan of care, may consider tube feedings to meet nutrition needs palliative following Expected Outcomes/Goals: new goal 07/11: to meet > 75% est nutr need via po intake- goal not met, ongoing Interpretation of weight loss: >7.5% in 3 months Malnutrition Findings: Weight Status: Appropriate JOHN CHAVEZ MD Jul 20, 2018 10:57
[2018-07-20 11:00] VITALS: BP 135/66
--- NOTE | 2018-07-20 13:00 | PDOC ---
Infectious Disease Note Subjective Subjective No fevers ROS ROS unobtainable Vital Sign Vital Signs Vital Signs Date Time Temp Pulse Resp B/P (MAP) Pulse Ox O2 Delivery O2 Flow Rate FiO2 07/20/18 12:05 94 135/66 07/20/18 11:00 97.7 14 95 Room Air 97.7 07/19/18 08:00 2.0 Physical Exam PHYSICAL EXAM GENERAL: Resting quietly, appears comfortable HEENT: Pupils equally round NECK: Supple. LUNGS: Clear HEART: S1 and S2. ABDOMEN: Soft, no grimace or guarding to palpation, BS present EXTREMITIES: No edema and no cyanosis. SKIN: Warm and dry. No generalized rash. 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: Noncommunicative, no seizure like activity/tremors PICC RUE - clean Labs Lab Laboratory Tests Test 07/20/18 05:45 White Blood Count 6.3 x10^3/uL (4.0-11.0) Red Blood Count 5.32 x10^6/uL (4.30-5.70) Hemoglobin 13.0 g/dL (13.0-17.5) Hematocrit 40.7 % (39.0-53.0) Mean Corpuscular Volume 77 fL (79-100) Mean Corpuscular Hemoglobin 24 pg (25-35) Mean Corpuscular Hemoglobin Concent 32 g/dL (31-37) Red Cell Distribution Width 15.1 % (11.5-14.5) Platelet Count 277 x10^3/uL (140-400) Neutrophils (%) (Auto) 51 % (31-73) Lymphocytes (%) (Auto) 23 % (24-48) Monocytes (%) (Auto) 13 % (0-9) Eosinophils (%) (Auto) 12 % (0-3) Basophils (%) (Auto) 1 % (0-3) Neutrophils # (Auto) 3.2 x10^3uL (1.8-7.7) Lymphocytes # (Auto) 1.5 x10^3/uL (1.0-4.8) Monocytes # (Auto) 0.8 x10^3/uL (0.0-1.1) Eosinophils # (Auto) 0.7 x10^3/uL (0.0-0.7) Basophils # (Auto) 0.1 x10^3/uL (0.0-0.2) Sodium Level 137 mmol/L (136-145) Potassium Level 3.7 mmol/L (3.5-5.1) Chloride Level 101 mmol/L (98-107) Carbon Dioxide Level 25 mmol/L (21-32) Anion Gap 11 (6-14) Blood Urea Nitrogen 18 mg/dL (8-26) Creatinine 0.8 mg/dL (0.7-1.3) Estimated GFR (Cockcroft-Gault) 97.6 Glucose Level 118 mg/dL (70-99) Calcium Level 9.3 mg/dL (8.5-10.1) Micro 07/02/18 Blood Culture - Preliminary, Resulted NO GROWTH AFTER 34DAYS 07/05/18 CSF Gram Stain - Final, Complete GRAM STAIN,CSF Final WBCS NONE SEEN RBCS NONE SEEN ORGANISMS NONE SEEN AFB CULTURE GRAM STAIN Final Negative Objective Assessment LUE contractures, chorea like movements documented before Neurosyphilis + VDRL. RPR 1:16. HIV - neg TB spot indeterminate Encephalopathy - Unable to obtain MRI as the patient has metallic fragments in the floor of the left maxillary sinus. -s/p LP: CSF WBC 0, glucose 61, T protein 61.1. VDRL pending -HSV PCR negative; HIV nonreactive Status epilepticus. on Keppra Hypertensive encephalopathy. History of incarceration more than 20 years ago. Diabetes. Peripheral vascular disease. Left nephrectomy. Aspiration Pneumonitis Smoking Plan Plan of Care Cont PCN 4 million q 4. through 07/21 to complete a total of 14 days of treatment He will need a repeat CSF VDRL in 3 mos to 6 mos and VDRL should be nonreactive or will require retreatment Will need repeat TB spot in a few month Maintain aspiration precaution. Neurology following Oral care pt should be DNR/DNI half-way prognosis poor Patient seen and examined. Chart reviewed in detail. Case d/w CASCADE OPERATOR. Agree with above plan. ALISA BOSCH [facility] Jul 20, 2018 13:00 OLGA JOHNSON MD Jul 20, 2018 20:33
[2018-07-20 15:00] VITALS: BP 152/65
[2018-07-20 19:00] VITALS: BP 128/58
[2018-07-20] MEDS: ZOLPIDEM 5 MG TABLET. PO PRN (20:58)
[2018-07-20 23:00] VITALS: BP 141/66
[2018-07-21] MEDS: HALOPERIDOL LACTATE 5 MG/ML VIAL. IVP PRN (02:58)
[2018-07-21] MEDS: PENICILLIN K IV SCH ×5 (02:58→20:47)
[2018-07-21] MEDS: DEXTROSE 5% IV SCH ×5 (02:58→20:47)
[2018-07-21 03:00] VITALS: BP 167/70
[2018-07-21 04:09] LABS: BASO # 0.1 x10^3/uL (0.0-0.2); BASO % 1 % (0-3); EOS # 0.6 x10^3/uL (0.0-0.7); EOS % 8 % (0-3); HEMATOCRIT 38.5 % (39.0-53.0); HEMOGLOBIN 12.3 g/dL (13.0-17.5); LYMPH # 1.7 x10^3/uL (1.0-4.8); LYMPH % 23 % (24-48); MEAN CORPUSCULAR HEMOGLOBIN 24 pg (25-35); MEAN CORPUSCULAR HGB CONC 32 g/dL (31-37); MEAN CORPUSCULAR VOLUME 76 fL (79-100); MONO % 13 % (0-9); NEUT # 4.1 x10^3uL (1.8-7.7); NEUT % 55 % (31-73); PLATELET COUNT 308 x10^3/uL (140-400); RED BLOOD COUNT 5.05 x10^6/uL (4.30-5.70); RED CELL DISTRIBUTION WIDTH 15.2 % (11.5-14.5); WHITE BLOOD COUNT 7.5 x10^3/uL (4.0-11.0)
[2018-07-21 04:25] LABS: CALCIUM 9.1 mg/dL (8.5-10.1); CREATININE 0.8 mg/dL (0.7-1.3); GFR 97.6; POTASSIUM 4.6 mmol/L (3.5-5.1)
[2018-07-21] MEDS: NITROGLYCERIN OINT 1 GM PACKET. TP SCH ×4 (05:55→23:57)
[2018-07-21] MEDS: AMINO AC 3%/ELECTROLYTE/GLYCER 1,000 ML IV SCH ×3 (06:08→23:58)
[2018-07-21 07:00] VITALS: BP 113/55
--- NOTE | 2018-07-21 09:17 | PDOC ---
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 Diabetes 2 Peripheral vascular disease. Tobacco abuse. Left nephrectomy. Gastroesophageal reflux disease. Aspiration Pneumonitis Tremors (?), Age-related atrophy, and evidence of chronic small vessel disease SEVERE MALNUTRITION History of Present Illness History of Present Illness About the same I did not start tube feeds as he can tolerate a regular diet is just that he needs coaxing to eat Continue ProcalAmine for now confused today elytes stable fam meet planned sunday 10 AM re goals of care and code status PLAN: PCN through 07/21 per ID for the neurosyphylis HOme with girlfriend afterwards hopefully Full code fam meet sunday 10 AM Cont supprotive meds Vitals Vitals Vital Signs Date Time Temp Pulse Resp B/P (MAP) Pulse Ox O2 Delivery O2 Flow Rate FiO2 07/21/18 08:00 Room Air 07/21/18 05:55 74 151/68 07/21/18 03:00 14 96 07/20/18 19:00 98.7 98.7 Physical Exam Physical Exam GENERAL: Resting quietly, appears comfortable HEENT: Pupils equally round NECK: Supple. LUNGS: Clear HEART: S1 and S2. ABDOMEN: Soft, no grimace or guarding to palpation, BS present EXTREMITIES: No edema and no cyanosis. SKIN: Warm and dry. No generalized rash. 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: Noncommunicative, no seizure like activity/tremors PICC RUE - clean General: Alert, No acute distress, Other (mumbling responses to question, easy to arrouse, left arm and hand fasiculations, pleasantly confused) Heart: Regular rate, Normal S1, Normal S2, No murmurs Lungs: Clear, Other (airway patent, normal respiratory effort, no crackles or wheezing) Abdomen: Normal bowel sounds, Soft, No tenderness, No hepatosplenomegaly, No masses, Other (no grimace or guarding to palpation) Extremities: No clubbing, No cyanosis, No edema, Other (Strong peripheral pulses 3+, PICC RUE C/D/I) Skin: No rashes, No breakdown, No significant lesion Labs LABS Laboratory Tests Test 07/21/18 03:25 White Blood Count 7.5 x10^3/uL (4.0-11.0) Red Blood Count 5.05 x10^6/uL (4.30-5.70) Hemoglobin 12.3 g/dL (13.0-17.5) Hematocrit 38.5 % (39.0-53.0) Mean Corpuscular Volume 76 fL (79-100) Mean Corpuscular Hemoglobin 24 pg (25-35) Mean Corpuscular Hemoglobin Concent 32 g/dL (31-37) Red Cell Distribution Width 15.2 % (11.5-14.5) Platelet Count 308 x10^3/uL (140-400) Neutrophils (%) (Auto) 55 % (31-73) Lymphocytes (%) (Auto) 23 % (24-48) Monocytes (%) (Auto) 13 % (0-9) Eosinophils (%) (Auto) 8 % (0-3) Basophils (%) (Auto) 1 % (0-3) Neutrophils # (Auto) 4.1 x10^3uL (1.8-7.7) Lymphocytes # (Auto) 1.7 x10^3/uL (1.0-4.8) Monocytes # (Auto) 1.0 x10^3/uL (0.0-1.1) Eosinophils # (Auto) 0.6 x10^3/uL (0.0-0.7) Basophils # (Auto) 0.1 x10^3/uL (0.0-0.2) Sodium Level 136 mmol/L (136-145) Potassium Level 4.6 mmol/L (3.5-5.1) Chloride Level 100 mmol/L (98-107) Carbon Dioxide Level 25 mmol/L (21-32) Anion Gap 11 (6-14) Blood Urea Nitrogen 18 mg/dL (8-26) Creatinine 0.8 mg/dL (0.7-1.3) Estimated GFR (Cockcroft-Gault) 97.6 Glucose Level 127 mg/dL (70-99) Calcium Level 9.1 mg/dL (8.5-10.1) Review of Systems Review of Systems confused hence limited ROS Assessment and Plan Assessmemt and Plan Problems Medical Problems: (1) Elevated troponin Status: Acute (2) Tremor Status: Acute Comment Review of Relevant I have reviewed the following items kendrick (where applicable) has been applied. Labs Laboratory Tests Test 07/20/18 05:45 07/21/18 03:25 White Blood Count 6.3 x10^3/uL (4.0-11.0) 7.5 x10^3/uL (4.0-11.0) Red Blood Count 5.32 x10^6/uL (4.30-5.70) 5.05 x10^6/uL (4.30-5.70) Hemoglobin 13.0 g/dL (13.0-17.5) 12.3 g/dL (13.0-17.5) Hematocrit 40.7 % (39.0-53.0) 38.5 % (39.0-53.0) Mean Corpuscular Volume 77 fL (79-100) 76 fL (79-100) Mean Corpuscular Hemoglobin 24 pg (25-35) 24 pg (25-35) Mean Corpuscular Hemoglobin Concent 32 g/dL (31-37) 32 g/dL (31-37) Red Cell Distribution Width 15.1 % (11.5-14.5) 15.2 % (11.5-14.5) Platelet Count 277 x10^3/uL (140-400) 308 x10^3/uL (140-400) Neutrophils (%) (Auto) 51 % (31-73) 55 % (31-73) Lymphocytes (%) (Auto) 23 % (24-48) 23 % (24-48) Monocytes (%) (Auto) 13 % (0-9) 13 % (0-9) Eosinophils (%) (Auto) 12 % (0-3) 8 % (0-3) Basophils (%) (Auto) 1 % (0-3) 1 % (0-3) Neutrophils # (Auto) 3.2 x10^3uL (1.8-7.7) 4.1 x10^3uL (1.8-7.7) Lymphocytes # (Auto) 1.5 x10^3/uL (1.0-4.8) 1.7 x10^3/uL (1.0-4.8) Monocytes # (Auto) 0.8 x10^3/uL (0.0-1.1) 1.0 x10^3/uL (0.0-1.1) Eosinophils # (Auto) 0.7 x10^3/uL (0.0-0.7) 0.6 x10^3/uL (0.0-0.7) Basophils # (Auto) 0.1 x10^3/uL (0.0-0.2) 0.1 x10^3/uL (0.0-0.2) Sodium Level 137 mmol/L (136-145) 136 mmol/L (136-145) Potassium Level 3.7 mmol/L (3.5-5.1) 4.6 mmol/L (3.5-5.1) Chloride Level 101 mmol/L (98-107) 100 mmol/L (98-107) Carbon Dioxide Level 25 mmol/L (21-32) 25 mmol/L (21-32) Anion Gap 11 (6-14) 11 (6-14) Blood Urea Nitrogen 18 mg/dL (8-26) 18 mg/dL (8-26) Creatinine 0.8 mg/dL (0.7-1.3) 0.8 mg/dL (0.7-1.3) Estimated GFR (Cockcroft-Gault) 97.6 97.6 Glucose Level 118 mg/dL (70-99) 127 mg/dL (70-99) Calcium Level 9.3 mg/dL (8.5-10.1) 9.1 mg/dL (8.5-10.1) Laboratory Tests Test 07/21/18 03:25 White Blood Count 7.5 x10^3/uL (4.0-11.0) Red Blood Count 5.05 x10^6/uL (4.30-5.70) Hemoglobin 12.3 g/dL (13.0-17.5) Hematocrit 38.5 % (39.0-53.0) Mean Corpuscular Volume 76 fL (79-100) Mean Corpuscular Hemoglobin 24 pg (25-35) Mean Corpuscular Hemoglobin Concent 32 g/dL (31-37) Red Cell Distribution Width 15.2 % (11.5-14.5) Platelet Count 308 x10^3/uL (140-400) Neutrophils (%) (Auto) 55 % (31-73) Lymphocytes (%) (Auto) 23 % (24-48) Monocytes (%) (Auto) 13 % (0-9) Eosinophils (%) (Auto) 8 % (0-3) Basophils (%) (Auto) 1 % (0-3) Neutrophils # (Auto) 4.1 x10^3uL (1.8-7.7) Lymphocytes # (Auto) 1.7 x10^3/uL (1.0-4.8) Monocytes # (Auto) 1.0 x10^3/uL (0.0-1.1) Eosinophils # (Auto) 0.6 x10^3/uL (0.0-0.7) Basophils # (Auto) 0.1 x10^3/uL (0.0-0.2) Sodium Level 136 mmol/L (136-145) Potassium Level 4.6 mmol/L (3.5-5.1) Chloride Level 100 mmol/L (98-107) Carbon Dioxide Level 25 mmol/L (21-32) Anion Gap 11 (6-14) Blood Urea Nitrogen 18 mg/dL (8-26) Creatinine 0.8 mg/dL (0.7-1.3) Estimated GFR (Cockcroft-Gault) 97.6 Glucose Level 127 mg/dL (70-99) Calcium Level 9.1 mg/dL (8.5-10.1) Microbiology 07/02/18 Blood Culture - Final, Complete NO GROWTH AFTER 5 DAYS 07/05/18 CSF Gram Stain - Final, Complete Medications Current Medications Sodium Chloride 1,000 ml @ 1,000 mls/hr 1X ONCE IV Last administered on at 10:00; Start 07/02/18 at 10:00; Stop 07/02/18 at 10:59; Status DC Lorazepam (Ativan) 0.5 mg 1X ONCE IV Last administered on 07/02/18at 12:12; Start 07/02/18 at 12:30; Stop 07/02/18 at 12:31; Status DC Aspirin (Children'S Aspirin) 324 mg 1X ONCE PO Last administered on 07/02/18at 13:18; Start 07/02/18 at 13:30; Stop 07/02/18 at 13:31; Status DC Acetaminophen (Tylenol) 650 mg PRN Q4HRS PRN PO FEVER; Start 07/02/18 at 14:30 ; Stop 07/02/18 at 18:38; Status DC Lorazepam (Ativan) 2 mg PRN Q4HRS PRN IV ANXIETY/AGITATION/ETOH WITHDRL Last administered on 07/21/18at 00:25; Start 07/02/18 at 15:30 Levetiracetam 750 mg/Dextrose 107.5 ml @ 420 mls/hr Q12HR IV Last administered on 07/03/18at 09:35; Start 07/02/18 at 16:30; Stop 07/03/18 at 14:17 ; Status DC Sodium Chloride (Normal Saline Flush 3ml) 3 ml QSHIFT PRN IV AFTER MEDS AND BLOOD DRAWS Last administered on 07/16/18at 07:35; Start 07/02/18 at 15:45 Sodium Chloride 1,000 ml @ 100 mls/hr Q10H IV Last administered on 07/02/18at 16:04; Start 07/02/18 at 16:30; Stop 07/04/18 at 16:37; Status DC Ondansetron HCl (Zofran) 4 mg PRN Q4HRS PRN IV NAUSEA/VOMITING; Start 07/02/18 at 15:45 Zolpidem Tartrate (Ambien) 5 mg PRN QHS PRN PO INSOMNIA Last administered on at 20:58; Start 07/02/18 at 15:45 Acetaminophen (Tylenol) 650 mg PRN Q4HRS PRN PO TEMP OVER 100.4F OR MILD PAIN Last administered on 07/19/18at 04:06; Start 07/02/18 at 15:45 Al Hydroxide/Mg Hydroxide (Mylanta Plus Xs) 30 ml PRN DAILY PRN PO HEARTBURN / GAS; Start 07/02/18 at 15:45 Clonidine HCl (Catapres) 0.1 mg PRN Q6HRS PRN PO SBP>160 OR DBP>90; Start 07/02 at 15:45 Sodium Monofluorophosphate (Fleet Adult) 133 ml PRN DAILY PRN [place] CONSTIPATION; Start 07/02/18 at 15:45 Diphenhydramine HCl (Benadryl) 25 mg PRN Q4HRS PRN IVP ITCHING Last administered on 07/20/18at 21:20; Start 07/02/18 at 15:45 Docusate Sodium (Colace) 100 mg PRN BID PRN PO CONSTIPATION; Start 07/02/18 at 15:45 Albuterol Sulfate (Ventolin Neb Soln) 2.5 mg PRN Q4HRS PRN NEB SHORTNESS OF BREATH; Start 07/02/18 at 15:45 Guaifenesin (Robitussin) 200 mg PRN Q4HRS PRN PO COUGH; Start 07/02/18 at 15:45 Lorazepam (Ativan) 0.5 mg PRN Q4HRS PRN PO ANXIETY / AGITATION Last administered on 07/17/18 20:54; Start 07/02/18 at 15:45 Enoxaparin Sodium (Lovenox 40mg Syringe) 40 mg DAILY SQ Last administered on 08:25; Start 07/03/18 at 09:00 Hydralazine HCl (Apresoline Inj) 10 mg PRN Q4HRS PRN IVP ELEVATED BP, SEE COMMENTS Last administered on 07/20/18at 02:45; Start 07/02/18 at 16:45 Nitroglycerin (Nitro-Bid Oint) 0.5 inch Q6HRS TP Last administered on 05:55; Start 07/02/18 at 17:30 Aspirin (Children'S Aspirin) 81 mg DAILY PO Last administered on 07/20/18 08: 25; Start 07/03/18 at 09:00 Lorazepam (Ativan) 2 mg PRN Q4HRS PRN IV ALCOHOL WITHDRAWAL; Start 07/02/18 at 18:30; Status Cancel Cefepime HCl (Maxipime) 2 gm Q8HRS IVP Last administered on 07/04/18at 14:00; Start 07/03/18 at 14:30; Stop 07/04/18 at 18:56; Status DC Acyclovir Sodium 730 mg/Dextrose 264.6 ml @ 264.6 mls/ hr Q8HRS IV Last administered on 07/04/18at 05:07; Start 07/03/18 at 15:00; Stop 07/04/18 at 12:26 ; Status DC Vancomycin HCl (Vanco Per Pharmacy) 1 each PRN DAILY PRN MC SEE COMMENTS Last administered on 07/04/18at 12:31; Start 07/03/18 at 14:15; Stop 07/04/18 at 18:56 ; Status DC Ampicillin Sodium 2 gm/Sodium Chloride 100 ml @ 200 mls/hr Q4HRS IV Last administered on 07/04/18at 16:24; Start 07/03/18 at 16:00; Stop 07/04/18 at 18:56 ; Status DC Vancomycin HCl 1.5 gm/Sodium Chloride 500 ml @ 250 mls/hr 1X ONCE IV Last administered on 07/03/18at 17:54; Start 07/03/18 at 15:00; Stop 07/03/18 at 16:59 ; Status DC Levetiracetam 500 mg/Dextrose 105 ml @ 420 mls/hr Q12HR IV Last administered on 07/07/18at 09:55; Start 07/03/18 at 21:00; Stop 07/07/18 at 11:46; Status DC Divalproex Sodium (Depakote) 500 mg BID PO ; Start 07/03/18 at 21:00; Stop 07/04 at 16:20; Status DC Vancomycin HCl 1 gm/Sodium Chloride 250 ml @ 250 mls/hr Q12H IV Last administered on 07/04/18at 18:45; Start 07/04/18 at 06:00; Stop 07/04/18 at 18:58 ; Status DC Vancomycin HCl (Vancomycin Trough Level) 1 each 1X ONCE MC ; Start 07/05/18 at 05:30; Stop 07/05/18 at 05:31; Status Cancel Amino Acids/ Glycerin/ Electrolytes 1,000 ml @ 80 mls/hr [id number] IV Last administered on 07/21/18at 06:08; Start 07/03/18 at 19:15 Acyclovir Sodium 620 mg/Dextrose 262.4 ml @ 262.4 mls/ hr Q8HRS IV Last administered on 07/05/18at 05:05; Start 07/04/18 at 14:00; Stop 07/05/18 at 13:59 ; Status DC Lactobacillus Rhamnosus (Culturelle) 1 cap BID PO Last administered on at 20:16; Start 07/04/18 at 21:00 Valproic Acid 500 mg/Dextrose 55 ml @ 55 mls/hr Q8HRS IV Last administered on 06:05; Start 07/04/18 at 17:00; Stop 07/10/18 at 12:12; Status DC Acyclovir Sodium 620 mg/Dextrose 112.4 ml @ 112.4 mls/ hr Q8HRS IV Last administered on 07/06/18at 05:19; Start 07/05/18 at 14:00; Stop 07/06/18 at 13:52 ; Status DC Cefepime HCl (Maxipime) 1 gm Q8HRS IVP Last administered on 07/08/18at 05:47; Start 07/04/18 at 22:00; Stop 07/08/18 at 09:20; Status DC Iohexol (Omnipaque 350 Mg/ml) 75 ml 1X ONCE IV Last administered on 07/05/18at 11:45; Start 07/05/18 at 11:15; Stop 07/05/18 at 11:16; Status DC Info (CONTRAST GIVEN -- Rx MONITORING) 1 each PRN DAILY PRN MC SEE COMMENTS; Start 07/05/18 at 11:30; Stop 07/07/18 at 11:29; Status DC Carbamazepine (TEGretol) 200 mg BID PO Last administered on 07/20/18at 20:17; Start 07/07/18 at 21:00 Ceftriaxone Sodium (Rocephin) 2 gm Q24H IVP Last administered on 07/09/18at 08:02 ; Start 07/08/18 at 10:00; Stop 07/09/18 at 11:51; Status DC Penicillin G Potassium [id number] unit/Dextrose 100 ml @ 100 mls/hr Q4HRS IV Last administered on 07/21/18at 08:26; Start 07/09/18 at 12:00; Stop 07/21/18 at 23:59 Barium Sulfate (Varibar Thin Liquid Apple) 148 gm 1X ONCE PO Last administered on 07/09/18 13:53; Start 07/09/18 at 13:00; Stop 07/09/18 at 13:01; Status DC Non-Formulary Medication 1 ea QID PO Last administered on 07/13/18at 20:04; Start 07/11/18 at 21:00; Stop 07/14/18 at 15:35; Status DC Probenecid (Benemid) 500 mg QID PO Last administered on 07/20/18at 08:25; Start 07/14/18 at 17:00; Stop 07/20/18 at 13:00; Status DC Barium Sulfate (Varibar Thin Liquid Apple) 148 gm 1X ONCE PO ; Start 07/16/18 at 14:00; Stop 07/16/18 at 14:01; Status DC Haloperidol Lactate (Haldol Inj) 5 mg PRN Q6HRS PRN IVP AGITATION Last administered on 07/21/18at 02:58; Start 07/19/18 at 21:15 Active Scripts Active Reported Zithromax (Azithromycin) 500 Mg Tablet 1 Tab PO DAILY Aspirin 81 Mg Tab.chew 81 Mg PO DAILY Hydrocodone-Apap 5-325 (Hydrocodone Bit/Acetaminophen) 1 Tab Tablet 1 Tab PO PRN Q6HRS PRN Vitals/I & O Vital Sign - Last 24 Hours 07/20/18 07/20/18 07/20/18 07/20/18 11:00 12:05 15:00 17:48 Temp 97.7 98.6 97.7 98.6 Pulse 94 94 93 93 Resp 14 14 B/P (MAP) 135/66 (89) 135/66 152/65 (94) 152/65 Pulse Ox 95 95 O2 Delivery Room Air Room Air 07/20/18 07/20/18 07/20/18 07/20/18 19:00 19:43 23:00 23:22 Temp 98.7 98.7 Pulse 77 85 85 Resp 12 14 B/P (MAP) 128/58 (81) 141/66 (91) 141/66 Pulse Ox 100 100 O2 Delivery Room Air Room Air Room Air 07/21/18 07/21/18 07/21/18 03:00 05:55 08:00 Pulse 85 74 Resp 14 B/P (MAP) 167/70 (102) 151/68 Pulse Ox 96 O2 Delivery Room Air Room Air Intake and Output 07/20/18 07/20/18 07/21/18 15:00 23:00 07:00 Intake Total 0 ml 0 ml 120 ml Balance 0 ml 0 ml 120 ml Nutrition Consultation Dietary Evaluation: Recommendations by RD: Increase Calorie Intake, Protein supplementation Comments: PPN day 17- rec d/c. continue diet per MANAGEMENT NURSE RN w/ supplements- encourage po intake monitor plan of care, may consider tube feedings to meet nutrition needs palliative following Expected Outcomes/Goals: new goal /: to meet > 75% est nutr need via po intake- goal not met, ongoing Interpretation of weight loss: >7.5% in 3 months Malnutrition Findings: Weight Status: Appropriate JOHN CHAVEZ MD Jul 21, 2018 09:17
[2018-07-21] MEDS: LACTOBACILLUS RHAMNOSUS GG 1 CAPSULE. PO SCH ×2 (09:53→20:47)
[2018-07-21] MEDS: carBAMazepine 200 MG TABLET PO SCH ×2 (09:53→20:47)
[2018-07-21] MEDS: ASPIRIN CHEWABLE 81 MG TABLET. PO SCH (09:53)
[2018-07-21] MEDS: DOCUSATE SODIUM 100 MG CAPSULE. PO PRN (09:53)
[2018-07-21] MEDS: ENOXAPARIN 40 MG/0.4 ML SYRINGE. SQ SCH (09:53)
[2018-07-21 11:00] VITALS: BP 103/55
--- NOTE | 2018-07-21 11:42 | PDOC ---
Infectious Disease Note Subjective Subjective No fevers Vital Sign Vital Signs Vital Signs Date Time Temp Pulse Resp B/P (MAP) Pulse Ox O2 Delivery O2 Flow Rate FiO2 07/21/18 08:00 Room Air 07/21/18 07:00 98.5 68 16 113/55 (74) 97 98.5 Physical Exam PHYSICAL EXAM GENERAL: Resting quietly, appears comfortable HEENT: Pupils equally round reactive NECK: Supple. LUNGS: Clear HEART: S1 and S2. ABDOMEN: Soft, no grimace or guarding to palpation, BS present EXTREMITIES: No edema and no cyanosis. SKIN: Warm and dry. No generalized rash. 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: Difficult to arouse, noncommunicative, no seizure like activity/tremors PICC RUE (07/09) Labs Lab Laboratory Tests Test 07/21/18 03:25 White Blood Count 7.5 x10^3/uL (4.0-11.0) Red Blood Count 5.05 x10^6/uL (4.30-5.70) Hemoglobin 12.3 g/dL (13.0-17.5) Hematocrit 38.5 % (39.0-53.0) Mean Corpuscular Volume 76 fL (79-100) Mean Corpuscular Hemoglobin 24 pg (25-35) Mean Corpuscular Hemoglobin Concent 32 g/dL (31-37) Red Cell Distribution Width 15.2 % (11.5-14.5) Platelet Count 308 x10^3/uL (140-400) Neutrophils (%) (Auto) 55 % (31-73) Lymphocytes (%) (Auto) 23 % (24-48) Monocytes (%) (Auto) 13 % (0-9) Eosinophils (%) (Auto) 8 % (0-3) Basophils (%) (Auto) 1 % (0-3) Neutrophils # (Auto) 4.1 x10^3uL (1.8-7.7) Lymphocytes # (Auto) 1.7 x10^3/uL (1.0-4.8) Monocytes # (Auto) 1.0 x10^3/uL (0.0-1.1) Eosinophils # (Auto) 0.6 x10^3/uL (0.0-0.7) Basophils # (Auto) 0.1 x10^3/uL (0.0-0.2) Sodium Level 136 mmol/L (136-145) Potassium Level 4.6 mmol/L (3.5-5.1) Chloride Level 100 mmol/L (98-107) Carbon Dioxide Level 25 mmol/L (21-32) Anion Gap 11 (6-14) Blood Urea Nitrogen 18 mg/dL (8-26) Creatinine 0.8 mg/dL (0.7-1.3) Estimated GFR (Cockcroft-Gault) 97.6 Glucose Level 127 mg/dL (70-99) Calcium Level 9.1 mg/dL (8.5-10.1) Micro 07/02/18 Blood Culture - Preliminary, Resulted NO GROWTH AFTER 34DAYS 07/05/18 CSF Gram Stain - Final, Complete GRAM STAIN,CSF Final WBCS NONE SEEN RBCS NONE SEEN ORGANISMS NONE SEEN AFB CULTURE GRAM STAIN Final Negative Objective Assessment Neurosyphilis + VDRL. RPR 1:16. HIV - neg TB spot indeterminate Encephalopathy - Unable to obtain MRI as the patient has metallic fragments in the floor of the left maxillary sinus. -s/p LP: CSF WBC 0, glucose 61, T protein 61.1. VDRL 1:4 -HSV PCR negative; HIV nonreactive Status epilepticus. on Keppra Hypertensive encephalopathy. History of incarceration more than 20 years ago. Diabetes. Peripheral vascular disease. Left nephrectomy. Aspiration Pneumonitis Smoking Plan Plan of Care Cont PCN 4 million q 4. through 07/21 to complete a total of 14 days of treatment He will need a repeat CSF VDRL in 3 mos to 6 mos and VDRL should be nonreactive or will require retreatment Will need repeat TB spot in a few month Maintain aspiration precaution. Neurology following Oral care pt should be DNR/DNI long-term prognosis poor D/w nursing Family meeting tomorrow Patient seen and examined. Chart reviewed in detail. Case discussed with MANAGER OF INVESTIGATIONS. Agree with above plan. ALISA BOSCH APRN Jul 21, 2018 11:42 OLGA JOHNSON MD Jul 21, 2018 18:55
--- NOTE | 2018-07-21 17:17 | NUR ---
Pt refusing to eat this shift. Will discuss with provider and staff.
[2018-07-21 19:00] VITALS: BP 136/74
[2018-07-21] MEDS: ACETAMINOPHEN 325 MG TABLET. PO PRN (20:47)
[2018-07-21 23:05] VITALS: BP 140/71
[2018-07-22 03:42] VITALS: BP 155/65
[2018-07-22 05:21] LABS: BASO # 0.1 x10^3/uL (0.0-0.2); BASO % 1 % (0-3); EOS # 0.8 x10^3/uL (0.0-0.7); EOS % 12 % (0-3); HEMATOCRIT 40.3 % (39.0-53.0); HEMOGLOBIN 13.1 g/dL (13.0-17.5); LYMPH # 1.5 x10^3/uL (1.0-4.8); LYMPH % 23 % (24-48); MEAN CORPUSCULAR HEMOGLOBIN 25 pg (25-35); MEAN CORPUSCULAR HGB CONC 32 g/dL (31-37); MEAN CORPUSCULAR VOLUME 76 fL (79-100); MONO # 0.7 x10^3/uL (0.0-1.1); MONO % 11 % (0-9); NEUT # 3.5 x10^3uL (1.8-7.7); NEUT % 53 % (31-73); PLATELET COUNT 328 x10^3/uL (140-400); RED CELL DISTRIBUTION WIDTH 15.4 % (11.5-14.5); WHITE BLOOD COUNT 6.6 x10^3/uL (4.0-11.0)
[2018-07-22 05:49] LABS: CALCIUM 9.5 mg/dL (8.5-10.1); CREATININE 0.8 mg/dL (0.7-1.3); GFR 97.6; POTASSIUM 4.6 mmol/L (3.5-5.1)
[2018-07-22] MEDS: NITROGLYCERIN OINT 1 GM PACKET. TP SCH ×3 (05:58→18:19)
[2018-07-22 07:00] VITALS: BP 155/77
[2018-07-22] MEDS: ENOXAPARIN 40 MG/0.4 ML SYRINGE. SQ SCH (09:07)
[2018-07-22] MEDS: ASPIRIN CHEWABLE 81 MG TABLET. PO SCH (09:08)
[2018-07-22] MEDS: carBAMazepine 200 MG TABLET PO SCH ×2 (09:08→20:25)
[2018-07-22] MEDS: LACTOBACILLUS RHAMNOSUS GG 1 CAPSULE. PO SCH ×2 (09:09→20:25)
--- NOTE | 2018-07-22 10:35 | PDOC ---
Infectious Disease Note Subjective: Subjective No fevers alert awake,confused Vital Signs: Vital Signs Vital Signs Date Time Temp Pulse Resp B/P (MAP) Pulse Ox O2 Delivery O2 Flow Rate FiO2 07/22/18 08:15 Room Air 07/22/18 07:00 97.6 75 16 155/77 (103) 98 97.6 Physical Exam: PHYSICAL EXAM GENERAL: Resting quietly, appears comfortable HEENT: Pupils equally round reactive NECK: Supple. LUNGS: Clear HEART: S1 and S2. ABDOMEN: Soft, no grimace or guarding to palpation, BS present EXTREMITIES: No edema and no cyanosis. SKIN: Warm and dry. No generalized rash. 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, noncommunicative, no seizure like activity/tremors PICC RUE (07/09) Medications: Inpatient Meds: Current Medications Medications (Trade) Dose Ordered Sig/Gloria Start Time Stop Time Status Last Admin Dose Admin Acetaminophen (Tylenol) 650 mg PRN Q4HRS PRN 07/02/18 15:45 07/21/18 20:47 650 MG Acyclovir Sodium 620 mg/Dextrose 112.4 ml @ 112.4 mls/ hr Q8HRS 07/05/18 14:00 07/06/18 13:52 DC 07/06/18 05:19 112.4 MLS/HR Acyclovir Sodium 730 mg/Dextrose 264.6 ml @ 264.6 mls/ hr Q8HRS 07/03/18 15:00 07/04/18 12:26 DC 07/04/18 05:07 264.6 MLS/HR Al Hydroxide/Mg Hydroxide (Mylanta Plus Xs) 30 ml PRN DAILY PRN 07/02/18 15:45 Albuterol Sulfate (Ventolin Neb Soln) 2.5 mg PRN Q4HRS PRN 07/02/18 15:45 Amino Acids/ Glycerin/ Electrolytes 1,000 ml @ 80 mls/hr [id number] 07/03/18 19:15 07/21/18 23:58 80 MLS/HR Ampicillin Sodium 2 gm/Sodium Chloride 100 ml @ 200 mls/hr Q4HRS 07/03/18 16:00 07/04/18 18:56 DC 07/04/18 16:24 200 MLS/HR Aspirin (Children'S Aspirin) 81 mg DAILY 07/03/18 09:00 07/22/18 09:08 81 MG Barium Sulfate (Varibar Thin Liquid Apple) 148 gm 1X ONCE 07/16/18 14:00 07/16/18 14:01 DC Carbamazepine (TEGretol) 200 mg BID 07/07/18 21:00 07/22/18 09:08 200 MG Cefepime HCl (Maxipime) 1 gm Q8HRS 07/04/18 22:00 07/08/18 09:20 DC 07/08/18 05:47 1 GM Ceftriaxone Sodium (Rocephin) 2 gm Q24H 07/08/18 10:00 07/09/18 11:51 DC 07/09/18 08:02 2 GM Clonidine HCl (Catapres) 0.1 mg PRN Q6HRS PRN 07/02/18 15:45 Diphenhydramine HCl (Benadryl) 25 mg PRN Q4HRS PRN 07/02/18 15:45 07/20/18 21:20 25 MG Divalproex Sodium (Depakote) 500 mg BID 07/03/18 21:00 07/04/18 16:20 DC Docusate Sodium (Colace) 100 mg PRN BID PRN 07/02/18 15:45 07/21/18 09:53 100 MG Enoxaparin Sodium (Lovenox 40mg Syringe) 40 mg DAILY 07/03/18 09:00 07/22/18 09:07 40 MG Guaifenesin (Robitussin) 200 mg PRN Q4HRS PRN 07/02/18 15:45 Haloperidol Lactate (Haldol Inj) 5 mg PRN Q6HRS PRN 07/19/18 21:15 07/21/18 02:58 5 MG Hydralazine HCl (Apresoline Inj) 10 mg PRN Q4HRS PRN 07/02/18 16:45 07/20/18 02:45 10 MG Info (CONTRAST GIVEN -- Rx MONITORING) 1 each PRN DAILY PRN 07/05/18 11:30 07/07/18 11:29 DC Iohexol (Omnipaque 350 Mg/ml) 75 ml 1X ONCE 07/05/18 11:15 07/05/18 11:16 DC 07/05/18 11:45 75 ML Lactobacillus Rhamnosus (Culturelle) 1 cap BID 07/04/18 21:00 07/22/18 09:09 1 CAP Levetiracetam 500 mg/Dextrose 105 ml @ 420 mls/hr Q12HR 07/03/18 21:00 07/07/18 11:46 DC 07/07/18 09:55 420 MLS/HR Levetiracetam 750 mg/Dextrose 107.5 ml @ 420 mls/hr Q12HR 07/02/18 16:30 07/03/18 14:17 DC 07/03/18 09:35 420 MLS/HR Lorazepam (Ativan) 2 mg PRN Q4HRS PRN 07/02/18 18:30 Cancel Nitroglycerin (Nitro-Bid Oint) 0.5 inch Q6HRS 07/02/18 17:30 07/22/18 05:58 0.5 INCH Non-Formulary Medication 1 ea QID 07/11/18 21:00 07/14/18 15:35 DC 07/13/18 20:04 1 EA Ondansetron HCl (Zofran) 4 mg PRN Q4HRS PRN 07/02/18 15:45 Penicillin G Potassium [id number] unit/Dextrose 100 ml @ 100 mls/hr Q4HRS 07/09/18 12:00 07/21/18 23:59 DC 07/21/18 20:47 100 MLS/HR Probenecid (Benemid) 500 mg QID 07/14/18 17:00 07/20/18 13:00 DC 07/20/18 08:25 500 MG Sodium Monofluorophosphate (Fleet Adult) 133 ml PRN DAILY PRN 07/02/18 15:45 Sodium Chloride 1,000 ml @ 100 mls/hr Q10H 07/02/18 16:30 07/04/18 16:37 DC 07/02/18 16:04 100 MLS/HR Sodium Chloride (Normal Saline Flush 3ml) 3 ml QSHIFT PRN 07/02/18 15:45 07/16/18 07:35 3 ML Valproic Acid 500 mg/Dextrose 55 ml @ 55 mls/hr Q8HRS 07/04/18 17:00 07/10/18 12:12 DC 07/10/18 06:05 55 MLS/HR Vancomycin HCl (Vanco Per Pharmacy) 1 each PRN DAILY PRN 07/03/18 14:15 07/04/18 18:56 DC 07/04/18 12:31 1 EACH Vancomycin HCl (Vancomycin Trough Level) 1 each 1X ONCE 07/05/18 05:30 07/05/18 05:31 Cancel Vancomycin HCl 1.5 gm/Sodium Chloride 500 ml @ 250 mls/hr 1X ONCE 07/03/18 15:00 07/03/18 16:59 DC 07/03/18 17:54 250 MLS/HR Vancomycin HCl 1 gm/Sodium Chloride 250 ml @ 250 mls/hr Q12H 07/04/18 06:00 07/04/18 18:58 DC 07/04/18 18:45 250 MLS/HR Zolpidem Tartrate (Ambien) 5 mg PRN QHS PRN 07/02/18 15:45 07/20/18 20:58 5 MG Labs: Lab Laboratory Tests Test 07/22/18 04:50 White Blood Count 6.6 x10^3/uL (4.0-11.0) Red Blood Count 5.30 x10^6/uL (4.30-5.70) Hemoglobin 13.1 g/dL (13.0-17.5) Hematocrit 40.3 % (39.0-53.0) Mean Corpuscular Volume 76 fL (79-100) Mean Corpuscular Hemoglobin 25 pg (25-35) Mean Corpuscular Hemoglobin Concent 32 g/dL (31-37) Red Cell Distribution Width 15.4 % (11.5-14.5) Platelet Count 328 x10^3/uL (140-400) Neutrophils (%) (Auto) 53 % (31-73) Lymphocytes (%) (Auto) 23 % (24-48) Monocytes (%) (Auto) 11 % (0-9) Eosinophils (%) (Auto) 12 % (0-3) Basophils (%) (Auto) 1 % (0-3) Neutrophils # (Auto) 3.5 x10^3uL (1.8-7.7) Lymphocytes # (Auto) 1.5 x10^3/uL (1.0-4.8) Monocytes # (Auto) 0.7 x10^3/uL (0.0-1.1) Eosinophils # (Auto) 0.8 x10^3/uL (0.0-0.7) Basophils # (Auto) 0.1 x10^3/uL (0.0-0.2) Sodium Level 139 mmol/L (136-145) Potassium Level 4.6 mmol/L (3.5-5.1) Chloride Level 102 mmol/L (98-107) Carbon Dioxide Level 27 mmol/L (21-32) Anion Gap 10 (6-14) Blood Urea Nitrogen 18 mg/dL (8-26) Creatinine 0.8 mg/dL (0.7-1.3) Estimated GFR (Cockcroft-Gault) 97.6 Glucose Level 89 mg/dL (70-99) Calcium Level 9.5 mg/dL (8.5-10.1) Objective: Assessment: 1. Encephalopathy, likely metabolic though pt is not able to give any history, no family at bedside. Unable to obtain MRI as the patient has metallic fragments in the floor of the left maxillary sinus. 2. Status epilepticus. on 3. 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 4. Hypertensive encephalopathy. 5. Disorientation,Confusion. 6. TPPA positive,syphilis unknown status, RPR postiive HIV negative, Acute hepatitis panel neg 7. History of incarceration more than 20 years ago. 8. Diabetes. 9. Peripheral vascular disease. 10. Smoking. 11. Left nephrectomy. 12. Peripheral arterial disease. 13. Gastroesophageal reflux disease. 14. Aspiration Pneumonitis 15. Tremors ? etiology could be from noninfectious etiology,resolved Plan: Plan of Care Pt completed 14 days of PCN through 07/21/2018 He will need a repeat CSF VDRL in 3 mos to 6 mos and VDRL should be nonreactive or will require retreatment Will need repeat TB spot in a few month Maintain aspiration precaution. 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
[2018-07-22 11:00] VITALS: BP 151/65
--- NOTE | 2018-07-22 11:43 | PDOC ---
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 Diabetes 2 Peripheral vascular disease. Tobacco abuse. Left nephrectomy. Gastroesophageal reflux disease. Aspiration Pneumonitis Tremors (?), Age-related atrophy, and evidence of chronic small vessel disease SEVERE MALNUTRITION History of Present Illness History of Present Illness no changes, intermittently confused ativan given overnight not start tube feeds as he can tolerate a regular diet when awake and alert Continue ProcalAmine for now electrolytes stable fam meet planned for today. palliative care consulted continue supportive care PT consulted Vitals Vitals Vital Signs Date Time Temp Pulse Resp B/P (MAP) Pulse Ox O2 Delivery O2 Flow Rate FiO2 07/22/18 08:15 Room Air 07/22/18 07:00 97.6 75 16 155/77 (103) 98 97.6 Physical Exam Physical Exam GENERAL: Resting quietly, appears comfortable HEENT: Pupils equally round reactive NECK: Supple. LUNGS: Clear HEART: S1 and S2. ABDOMEN: Soft, no grimace or guarding to palpation, BS present EXTREMITIES: No edema and no cyanosis. SKIN: Warm and dry. No generalized rash. 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, noncommunicative, no seizure like activity/tremors PICC RUE (07/09) General: Alert, No acute distress, Other (mumbling responses to question, easy to arrouse, left arm and hand fasiculations, pleasantly confused) Heart: Regular rate, Normal S1, Normal S2, No murmurs Lungs: Clear, Other (airway patent, normal respiratory effort, no crackles or wheezing) Abdomen: Normal bowel sounds, Soft, No tenderness, No hepatosplenomegaly, No masses, Other (no grimace or guarding to palpation) Extremities: No clubbing, No cyanosis, No edema, Other (Strong peripheral pulses 3+, PICC RUE C/D/I) Skin: No rashes, No breakdown, No significant lesion Labs LABS Laboratory Tests Test 07/22/18 04:50 White Blood Count 6.6 x10^3/uL (4.0-11.0) Red Blood Count 5.30 x10^6/uL (4.30-5.70) Hemoglobin 13.1 g/dL (13.0-17.5) Hematocrit 40.3 % (39.0-53.0) Mean Corpuscular Volume 76 fL (79-100) Mean Corpuscular Hemoglobin 25 pg (25-35) Mean Corpuscular Hemoglobin Concent 32 g/dL (31-37) Red Cell Distribution Width 15.4 % (11.5-14.5) Platelet Count 328 x10^3/uL (140-400) Neutrophils (%) (Auto) 53 % (31-73) Lymphocytes (%) (Auto) 23 % (24-48) Monocytes (%) (Auto) 11 % (0-9) Eosinophils (%) (Auto) 12 % (0-3) Basophils (%) (Auto) 1 % (0-3) Neutrophils # (Auto) 3.5 x10^3uL (1.8-7.7) Lymphocytes # (Auto) 1.5 x10^3/uL (1.0-4.8) Monocytes # (Auto) 0.7 x10^3/uL (0.0-1.1) Eosinophils # (Auto) 0.8 x10^3/uL (0.0-0.7) Basophils # (Auto) 0.1 x10^3/uL (0.0-0.2) Sodium Level 139 mmol/L (136-145) Potassium Level 4.6 mmol/L (3.5-5.1) Chloride Level 102 mmol/L (98-107) Carbon Dioxide Level 27 mmol/L (21-32) Anion Gap 10 (6-14) Blood Urea Nitrogen 18 mg/dL (8-26) Creatinine 0.8 mg/dL (0.7-1.3) Estimated GFR (Cockcroft-Gault) 97.6 Glucose Level 89 mg/dL (70-99) Calcium Level 9.5 mg/dL (8.5-10.1) Assessment and Plan Assessmemt and Plan Problems Medical Problems: (1) Elevated troponin Status: Acute (2) Tremor Status: Acute Comment Review of Relevant I have reviewed the following items kendrick (where applicable) has been applied. Labs Laboratory Tests Test 07/21/18 03:25 07/22/18 04:50 White Blood Count 7.5 x10^3/uL (4.0-11.0) 6.6 x10^3/uL (4.0-11.0) Red Blood Count 5.05 x10^6/uL (4.30-5.70) 5.30 x10^6/uL (4.30-5.70) Hemoglobin 12.3 g/dL (13.0-17.5) 13.1 g/dL (13.0-17.5) Hematocrit 38.5 % (39.0-53.0) 40.3 % (39.0-53.0) Mean Corpuscular Volume 76 fL (79-100) 76 fL (79-100) Mean Corpuscular Hemoglobin 24 pg (25-35) 25 pg (25-35) Mean Corpuscular Hemoglobin Concent 32 g/dL (31-37) 32 g/dL (31-37) Red Cell Distribution Width 15.2 % (11.5-14.5) 15.4 % (11.5-14.5) Platelet Count 308 x10^3/uL (140-400) 328 x10^3/uL (140-400) Neutrophils (%) (Auto) 55 % (31-73) 53 % (31-73) Lymphocytes (%) (Auto) 23 % (24-48) 23 % (24-48) Monocytes (%) (Auto) 13 % (0-9) 11 % (0-9) Eosinophils (%) (Auto) 8 % (0-3) 12 % (0-3) Basophils (%) (Auto) 1 % (0-3) 1 % (0-3) Neutrophils # (Auto) 4.1 x10^3uL (1.8-7.7) 3.5 x10^3uL (1.8-7.7) Lymphocytes # (Auto) 1.7 x10^3/uL (1.0-4.8) 1.5 x10^3/uL (1.0-4.8) Monocytes # (Auto) 1.0 x10^3/uL (0.0-1.1) 0.7 x10^3/uL (0.0-1.1) Eosinophils # (Auto) 0.6 x10^3/uL (0.0-0.7) 0.8 x10^3/uL (0.0-0.7) Basophils # (Auto) 0.1 x10^3/uL (0.0-0.2) 0.1 x10^3/uL (0.0-0.2) Sodium Level 136 mmol/L (136-145) 139 mmol/L (136-145) Potassium Level 4.6 mmol/L (3.5-5.1) 4.6 mmol/L (3.5-5.1) Chloride Level 100 mmol/L (98-107) 102 mmol/L (98-107) Carbon Dioxide Level 25 mmol/L (21-32) 27 mmol/L (21-32) Anion Gap 11 (6-14) 10 (6-14) Blood Urea Nitrogen 18 mg/dL (8-26) 18 mg/dL (8-26) Creatinine 0.8 mg/dL (0.7-1.3) 0.8 mg/dL (0.7-1.3) Estimated GFR (Cockcroft-Gault) 97.6 97.6 Glucose Level 127 mg/dL (70-99) 89 mg/dL (70-99) Calcium Level 9.1 mg/dL (8.5-10.1) 9.5 mg/dL (8.5-10.1) Laboratory Tests Test 07/22/18 04:50 White Blood Count 6.6 x10^3/uL (4.0-11.0) Red Blood Count 5.30 x10^6/uL (4.30-5.70) Hemoglobin 13.1 g/dL (13.0-17.5) Hematocrit 40.3 % (39.0-53.0) Mean Corpuscular Volume 76 fL (79-100) Mean Corpuscular Hemoglobin 25 pg (25-35) Mean Corpuscular Hemoglobin Concent 32 g/dL (31-37) Red Cell Distribution Width 15.4 % (11.5-14.5) Platelet Count 328 x10^3/uL (140-400) Neutrophils (%) (Auto) 53 % (31-73) Lymphocytes (%) (Auto) 23 % (24-48) Monocytes (%) (Auto) 11 % (0-9) Eosinophils (%) (Auto) 12 % (0-3) Basophils (%) (Auto) 1 % (0-3) Neutrophils # (Auto) 3.5 x10^3uL (1.8-7.7) Lymphocytes # (Auto) 1.5 x10^3/uL (1.0-4.8) Monocytes # (Auto) 0.7 x10^3/uL (0.0-1.1) Eosinophils # (Auto) 0.8 x10^3/uL (0.0-0.7) Basophils # (Auto) 0.1 x10^3/uL (0.0-0.2) Sodium Level 139 mmol/L (136-145) Potassium Level 4.6 mmol/L (3.5-5.1) Chloride Level 102 mmol/L (98-107) Carbon Dioxide Level 27 mmol/L (21-32) Anion Gap 10 (6-14) Blood Urea Nitrogen 18 mg/dL (8-26) Creatinine 0.8 mg/dL (0.7-1.3) Estimated GFR (Cockcroft-Gault) 97.6 Glucose Level 89 mg/dL (70-99) Calcium Level 9.5 mg/dL (8.5-10.1) Microbiology 07/02/18 Blood Culture - Final, Complete NO GROWTH AFTER 5 DAYS 07/05/18 CSF Gram Stain - Final, Complete Medications Current Medications Sodium Chloride 1,000 ml @ 1,000 mls/hr 1X ONCE IV Last administered on at 10:00; Start 07/02/18 at 10:00; Stop 07/02/18 at 10:59; Status DC Lorazepam (Ativan) 0.5 mg 1X ONCE IV Last administered on 07/02/18at 12:12; Start 07/02/18 at 12:30; Stop 07/02/18 at 12:31; Status DC Aspirin (Children'S Aspirin) 324 mg 1X ONCE PO Last administered on 07/02/18at 13:18; Start 07/02/18 at 13:30; Stop 07/02/18 at 13:31; Status DC Acetaminophen (Tylenol) 650 mg PRN Q4HRS PRN PO FEVER; Start 07/02/18 at 14:30 ; Stop 07/02/18 at 18:38; Status DC Lorazepam (Ativan) 2 mg PRN Q4HRS PRN IV ANXIETY/AGITATION/ETOH WITHDRL Last administered on 4/15/19at 02:40; Start 07/02/18 at 15:30 Levetiracetam 750 mg/Dextrose 107.5 ml @ 420 mls/hr Q12HR IV Last administered on 07/03/18 09:35; Start 07/02/18 at 16:30; Stop 07/03/18 at 14:17 ; Status DC Sodium Chloride (Normal Saline Flush 3ml) 3 ml QSHIFT PRN IV AFTER MEDS AND BLOOD DRAWS Last administered on 07/16/18 07:35; Start 07/02/18 at 15:45 Sodium Chloride 1,000 ml @ 100 mls/hr Q10H IV Last administered on 07/02/18 16:04; Start 07/02/18 at 16:30; Stop 07/04/18 at 16:37; Status DC Ondansetron HCl (Zofran) 4 mg PRN Q4HRS PRN IV NAUSEA/VOMITING; Start 07/02/18 at 15:45 Zolpidem Tartrate (Ambien) 5 mg PRN QHS PRN PO INSOMNIA Last administered on 20:58; Start 07/02/18 at 15:45 Acetaminophen (Tylenol) 650 mg PRN Q4HRS PRN PO TEMP OVER 100.4F OR MILD PAIN Last administered on 07/21/18 20:47; Start 07/02/18 at 15:45 Al Hydroxide/Mg Hydroxide (Mylanta Plus Xs) 30 ml PRN DAILY PRN PO HEARTBURN / GAS; Start 07/02/18 at 15:45 Clonidine HCl (Catapres) 0.1 mg PRN Q6HRS PRN PO SBP>160 OR DBP>90; Start 07/02 at 15:45 Sodium Monofluorophosphate (Fleet Adult) 133 ml PRN DAILY PRN AR CONSTIPATION; Start 07/02/18 at 15:45 Diphenhydramine HCl (Benadryl) 25 mg PRN Q4HRS PRN IVP ITCHING Last administered on 07/20/18 21:20; Start 07/02/18 at 15:45 Docusate Sodium (Colace) 100 mg PRN BID PRN PO CONSTIPATION Last administered on 07/21/18 09:53; Start 07/02/18 at 15:45 Albuterol Sulfate (Ventolin Neb Soln) 2.5 mg PRN Q4HRS PRN NEB SHORTNESS OF BREATH; Start 07/02/18 at 15:45 Guaifenesin (Robitussin) 200 mg PRN Q4HRS PRN PO COUGH; Start 07/02/18 at 15:45 Lorazepam (Ativan) 0.5 mg PRN Q4HRS PRN PO ANXIETY / AGITATION Last administered on 07/17/18at 20:54; Start 07/02/18 at 15:45 Enoxaparin Sodium (Lovenox 40mg Syringe) 40 mg DAILY SQ Last administered on at 09:07; Start 07/03/18 at 09:00 Hydralazine HCl (Apresoline Inj) 10 mg PRN Q4HRS PRN IVP ELEVATED BP, SEE COMMENTS Last administered on 07/20/18at 02:45; Start 07/02/18 at 16:45 Nitroglycerin (Nitro-Bid Oint) 0.5 inch Q6HRS TP Last administered on at 05:58; Start 07/02/18 at 17:30 Aspirin (Children'S Aspirin) 81 mg DAILY PO Last administered on 07/22/18at 09: 08; Start 07/03/18 at 09:00 Lorazepam (Ativan) 2 mg PRN Q4HRS PRN IV ALCOHOL WITHDRAWAL; Start 07/02/18 at 18:30; Status Cancel Cefepime HCl (Maxipime) 2 gm Q8HRS IVP Last administered on 07/04/18at 14:00; Start 07/03/18 at 14:30; Stop 07/04/18 at 18:56; Status DC Acyclovir Sodium 730 mg/Dextrose 264.6 ml @ 264.6 mls/ hr Q8HRS IV Last administered on 07/04/18at 05:07; Start 07/03/18 at 15:00; Stop 07/04/18 at 12:26 ; Status DC Vancomycin HCl (Vanco Per Pharmacy) 1 each PRN DAILY PRN MC SEE COMMENTS Last administered on 07/04/18at 12:31; Start 07/03/18 at 14:15; Stop 07/04/18 at 18:56 ; Status DC Ampicillin Sodium 2 gm/Sodium Chloride 100 ml @ 200 mls/hr Q4HRS IV Last administered on 07/04/18at 16:24; Start 07/03/18 at 16:00; Stop 07/04/18 at 18:56 ; Status DC Vancomycin HCl 1.5 gm/Sodium Chloride 500 ml @ 250 mls/hr 1X ONCE IV Last administered on 07/03/18at 17:54; Start 07/03/18 at 15:00; Stop 07/03/18 at 16:59 ; Status DC Levetiracetam 500 mg/Dextrose 105 ml @ 420 mls/hr Q12HR IV Last administered on 07/07/18at 09:55; Start 07/03/18 at 21:00; Stop 07/07/18 at 11:46; Status DC Divalproex Sodium (Depakote) 500 mg BID PO ; Start 07/03/18 at 21:00; Stop 07/04 at 16:20; Status DC Vancomycin HCl 1 gm/Sodium Chloride 250 ml @ 250 mls/hr Q12H IV Last administered on 07/04/18at 18:45; Start 07/04/18 at 06:00; Stop 07/04/18 at 18:58 ; Status DC Vancomycin HCl (Vancomycin Trough Level) 1 each 1X ONCE MC ; Start 07/05/18 at 05:30; Stop 07/05/18 at 05:31; Status Cancel Amino Acids/ Glycerin/ Electrolytes 1,000 ml @ 80 mls/hr [id number] IV Last administered on 07/21/18at 23:58; Start 07/03/18 at 19:15 Acyclovir Sodium 620 mg/Dextrose 262.4 ml @ 262.4 mls/ hr Q8HRS IV Last administered on 07/05/18at 05:05; Start 07/04/18 at 14:00; Stop 07/05/18 at 13:59 ; Status DC Lactobacillus Rhamnosus (Culturelle) 1 cap BID PO Last administered on at 09:09; Start 07/04/18 at 21:00 Valproic Acid 500 mg/Dextrose 55 ml @ 55 mls/hr Q8HRS IV Last administered on at 06:05; Start 07/04/18 at 17:00; Stop 07/10/18 at 12:12; Status DC Acyclovir Sodium 620 mg/Dextrose 112.4 ml @ 112.4 mls/ hr Q8HRS IV Last administered on 07/06/18at 05:19; Start 07/05/18 at 14:00; Stop 07/06/18 at 13:52 ; Status DC Cefepime HCl (Maxipime) 1 gm Q8HRS IVP Last administered on 07/08/18at 05:47; Start 07/04/18 at 22:00; Stop 07/08/18 at 09:20; Status DC Iohexol (Omnipaque 350 Mg/ml) 75 ml 1X ONCE IV Last administered on 07/05/18at 11:45; Start 07/05/18 at 11:15; Stop 07/05/18 at 11:16; Status DC Info (CONTRAST GIVEN -- Rx MONITORING) 1 each PRN DAILY PRN MC SEE COMMENTS; Start 07/05/18 at 11:30; Stop 07/07/18 at 11:29; Status DC Carbamazepine (TEGretol) 200 mg BID PO Last administered on 07/22/18at 09:08; Start 07/07/18 at 21:00 Ceftriaxone Sodium (Rocephin) 2 gm Q24H IVP Last administered on 07/09/18at 08:02 ; Start 07/08/18 at 10:00; Stop 07/09/18 at 11:51; Status DC Penicillin G Potassium [id number] unit/Dextrose 100 ml @ 100 mls/hr Q4HRS IV Last administered on 07/21/18at 20:47; Start 07/09/18 at 12:00; Stop 07/21/18 at 23:59; Status DC Barium Sulfate (Varibar Thin Liquid Apple) 148 gm 1X ONCE PO Last administered on 07/09/18at 13:53; Start 07/09/18 at 13:00; Stop 07/09/18 at 13:01; Status DC Non-Formulary Medication 1 ea QID PO Last administered on 07/13/18at 20:04; Start 07/11/18 at 21:00; Stop 07/14/18 at 15:35; Status DC Probenecid (Benemid) 500 mg QID PO Last administered on 07/20/18at 08:25; Start 07/14/18 at 17:00; Stop 07/20/18 at 13:00; Status DC Barium Sulfate (Varibar Thin Liquid Apple) 148 gm 1X ONCE PO ; Start 07/16/18 at 14:00; Stop 07/16/18 at 14:01; Status DC Haloperidol Lactate (Haldol Inj) 5 mg PRN Q6HRS PRN IVP AGITATION Last administered on 07/21/18at 02:58; Start 07/19/18 at 21:15 Active Scripts Active Reported Zithromax (Azithromycin) 500 Mg Tablet 1 Tab PO DAILY Aspirin 81 Mg Tab.chew 81 Mg PO DAILY Hydrocodone-Apap 5-325 (Hydrocodone Bit/Acetaminophen) 1 Tab Tablet 1 Tab PO PRN Q6HRS PRN Vitals/I & O Vital Sign - Last 24 Hours 07/21/18 07/21/18 07/21/18 07/21/18 11:48 17:56 19:00 19:36 Temp 98.4 98.4 Pulse 64 50 94 Resp 20 B/P (MAP) 103/55 98/52 136/74 (94) Pulse Ox 99 O2 Delivery Room Air Room Air 07/21/18 07/21/18 07/22/18 07/22/18 23:05 23:57 03:42 05:58 Temp 98.3 97.8 98.3 97.8 Pulse 73 73 76 71 Resp 20 20 B/P (MAP) 140/71 (94) 140/71 155/65 (95) 151/66 Pulse Ox 98 96 O2 Delivery Room Air Room Air 07/22/18 07/22/18 07:00 08:15 Temp 97.6 97.6 Pulse 75 Resp 16 B/P (MAP) 155/77 (103) Pulse Ox 98 O2 Delivery Room Air Room Air Intake and Output 07/21/18 07/21/18 07/22/18 15:00 23:00 07:00 Intake Total 100 ml 100 ml 1000 ml Balance 100 ml 100 ml 1000 ml Nutrition Consultation Dietary Evaluation: Recommendations by RD: Increase Calorie Intake, Protein supplementation Comments: PPN day - rec d/c. 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
--- NOTE | 2018-07-22 11:59 | PDOC ---
PROGRESS NOTES Assessment Problems Medical Problems: (1) Elevated troponin Status: Acute (2) Tremor Status: Acute Complex focal seizure went status epilepticus on 07/02/16. Metabolic encephalopathy. Hypertensive encephalopathy. Hypertensive emergency, BP 214/112 mmHg. HTN, poorly controlled. DM. PVD. Smoking. 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 Neurosyphilis. Plan Continue Tegretol 200 mg bid. Discontinued Keppra, sleepiness. Brain MRI not done due to metallic projects at the floor of the left maxillary sinus. Treat medical diseases. Has finished course of penicillin for neurosyphilis Awaiting placement, no insurance Subjective Denies pain Objective Vital Signs Date Time Temp Pulse Resp B/P (MAP) Pulse Ox O2 Delivery O2 Flow Rate FiO2 07/22/18 08:15 Room Air 07/22/18 07:00 97.6 75 16 155/77 (103) 98 97.6 Intake and Output 07/22/18 07:00 Intake Total 1200 ml Balance 1200 ml Intake Oral 0 ml IV Total 1200 ml # Voids 5 PHYSICAL EXAM Sleepy, arouses easily, knows name but not date or location PERRL. EOMI. CN: no focal findings. Muscle tone: normal. Muscle strength: 4/5 DTR: 2+ Plantar reflex: flexor Gait: not examined in bed. Sensory exam: no abnormal findings. No cerebellar signs elicited. No myoclonus or chorea noted Review of Relevant I have reviewed the following items kendrick (where applicable) has been applied. Labs Laboratory Tests Test 07/21/18 03:25 07/22/18 04:50 White Blood Count 7.5 x10^3/uL (4.0-11.0) 6.6 x10^3/uL (4.0-11.0) Red Blood Count 5.05 x10^6/uL (4.30-5.70) 5.30 x10^6/uL (4.30-5.70) Hemoglobin 12.3 g/dL (13.0-17.5) 13.1 g/dL (13.0-17.5) Hematocrit 38.5 % (39.0-53.0) 40.3 % (39.0-53.0) Mean Corpuscular Volume 76 fL (79-100) 76 fL (79-100) Mean Corpuscular Hemoglobin 24 pg (25-35) 25 pg (25-35) Mean Corpuscular Hemoglobin Concent 32 g/dL (31-37) 32 g/dL (31-37) Red Cell Distribution Width 15.2 % (11.5-14.5) 15.4 % (11.5-14.5) Platelet Count 308 x10^3/uL (140-400) 328 x10^3/uL (140-400) Neutrophils (%) (Auto) 55 % (31-73) 53 % (31-73) Lymphocytes (%) (Auto) 23 % (24-48) 23 % (24-48) Monocytes (%) (Auto) 13 % (0-9) 11 % (0-9) Eosinophils (%) (Auto) 8 % (0-3) 12 % (0-3) Basophils (%) (Auto) 1 % (0-3) 1 % (0-3) Neutrophils # (Auto) 4.1 x10^3uL (1.8-7.7) 3.5 x10^3uL (1.8-7.7) Lymphocytes # (Auto) 1.7 x10^3/uL (1.0-4.8) 1.5 x10^3/uL (1.0-4.8) Monocytes # (Auto) 1.0 x10^3/uL (0.0-1.1) 0.7 x10^3/uL (0.0-1.1) Eosinophils # (Auto) 0.6 x10^3/uL (0.0-0.7) 0.8 x10^3/uL (0.0-0.7) Basophils # (Auto) 0.1 x10^3/uL (0.0-0.2) 0.1 x10^3/uL (0.0-0.2) Sodium Level 136 mmol/L (136-145) 139 mmol/L (136-145) Potassium Level 4.6 mmol/L (3.5-5.1) 4.6 mmol/L (3.5-5.1) Chloride Level 100 mmol/L (98-107) 102 mmol/L (98-107) Carbon Dioxide Level 25 mmol/L (21-32) 27 mmol/L (21-32) Anion Gap 11 (6-14) 10 (6-14) Blood Urea Nitrogen 18 mg/dL (8-26) 18 mg/dL (8-26) Creatinine 0.8 mg/dL (0.7-1.3) 0.8 mg/dL (0.7-1.3) Estimated GFR (Cockcroft-Gault) 97.6 97.6 Glucose Level 127 mg/dL (70-99) 89 mg/dL (70-99) Calcium Level 9.1 mg/dL (8.5-10.1) 9.5 mg/dL (8.5-10.1) Laboratory Tests Test 07/22/18 04:50 White Blood Count 6.6 x10^3/uL (4.0-11.0) Red Blood Count 5.30 x10^6/uL (4.30-5.70) Hemoglobin 13.1 g/dL (13.0-17.5) Hematocrit 40.3 % (39.0-53.0) Mean Corpuscular Volume 76 fL (79-100) Mean Corpuscular Hemoglobin 25 pg (25-35) Mean Corpuscular Hemoglobin Concent 32 g/dL (31-37) Red Cell Distribution Width 15.4 % (11.5-14.5) Platelet Count 328 x10^3/uL (140-400) Neutrophils (%) (Auto) 53 % (31-73) Lymphocytes (%) (Auto) 23 % (24-48) Monocytes (%) (Auto) 11 % (0-9) Eosinophils (%) (Auto) 12 % (0-3) Basophils (%) (Auto) 1 % (0-3) Neutrophils # (Auto) 3.5 x10^3uL (1.8-7.7) Lymphocytes # (Auto) 1.5 x10^3/uL (1.0-4.8) Monocytes # (Auto) 0.7 x10^3/uL (0.0-1.1) Eosinophils # (Auto) 0.8 x10^3/uL (0.0-0.7) Basophils # (Auto) 0.1 x10^3/uL (0.0-0.2) Sodium Level 139 mmol/L (136-145) Potassium Level 4.6 mmol/L (3.5-5.1) Chloride Level 102 mmol/L (98-107) Carbon Dioxide Level 27 mmol/L (21-32) Anion Gap 10 (6-14) Blood Urea Nitrogen 18 mg/dL (8-26) Creatinine 0.8 mg/dL (0.7-1.3) Estimated GFR (Cockcroft-Gault) 97.6 Glucose Level 89 mg/dL (70-99) Calcium Level 9.5 mg/dL (8.5-10.1) Microbiology 07/02/18 Blood Culture - Final, Complete NO GROWTH AFTER 5 DAYS 07/05/18 CSF Gram Stain - Final, Complete Medications Current Medications Sodium Chloride 1,000 ml @ 1,000 mls/hr 1X ONCE IV Last administered on at 10:00; Start 07/02/18 at 10:00; Stop 07/02/18 at 10:59; Status DC Lorazepam (Ativan) 0.5 mg 1X ONCE IV Last administered on 07/02/18at 12:12; Start 07/02/18 at 12:30; Stop 07/02/18 at 12:31; Status DC Aspirin (Children'S Aspirin) 324 mg 1X ONCE PO Last administered on 07/02/18at 13:18; Start 07/02/18 at 13:30; Stop 07/02/18 at 13:31; Status DC Acetaminophen (Tylenol) 650 mg PRN Q4HRS PRN PO FEVER; Start 07/02/18 at 14:30 ; Stop 07/02/18 at 18:38; Status DC Lorazepam (Ativan) 2 mg PRN Q4HRS PRN IV ANXIETY/AGITATION/ETOH WITHDRL Last administered on 07/22/18at 02:40; Start 07/02/18 at 15:30 Levetiracetam 750 mg/Dextrose 107.5 ml @ 420 mls/hr Q12HR IV Last administered on 07/03/18at 09:35; Start 07/02/18 at 16:30; Stop 07/03/18 at 14:17 ; Status DC Sodium Chloride (Normal Saline Flush 3ml) 3 ml QSHIFT PRN IV AFTER MEDS AND BLOOD DRAWS Last administered on 07/16/18at 07:35; Start 07/02/18 at 15:45 Sodium Chloride 1,000 ml @ 100 mls/hr Q10H IV Last administered on 07/02/18 16:04; Start 07/02/18 at 16:30; Stop 07/04/18 at 16:37; Status DC Ondansetron HCl (Zofran) 4 mg PRN Q4HRS PRN IV NAUSEA/VOMITING; Start 07/02/18 at 15:45 Zolpidem Tartrate (Ambien) 5 mg PRN QHS PRN PO INSOMNIA Last administered on 20:58; Start 07/02/18 at 15:45 Acetaminophen (Tylenol) 650 mg PRN Q4HRS PRN PO TEMP OVER 100.4F OR MILD PAIN Last administered on 07/21/18 20:47; Start 07/02/18 at 15:45 Al Hydroxide/Mg Hydroxide (Mylanta Plus Xs) 30 ml PRN DAILY PRN PO HEARTBURN / GAS; Start 07/02/18 at 15:45 Clonidine HCl (Catapres) 0.1 mg PRN Q6HRS PRN PO SBP>160 OR DBP>90; Start 07/02 at 15:45 Sodium Monofluorophosphate (Fleet Adult) 133 ml PRN DAILY PRN ID CONSTIPATION; Start 07/02/18 at 15:45 Diphenhydramine HCl (Benadryl) 25 mg PRN Q4HRS PRN IVP ITCHING Last administered on 07/20/18 21:20; Start 07/02/18 at 15:45 Docusate Sodium (Colace) 100 mg PRN BID PRN PO CONSTIPATION Last administered on 07/21/18 09:53; Start 07/02/18 at 15:45 Albuterol Sulfate (Ventolin Neb Soln) 2.5 mg PRN Q4HRS PRN NEB SHORTNESS OF BREATH; Start 07/02/18 at 15:45 Guaifenesin (Robitussin) 200 mg PRN Q4HRS PRN PO COUGH; Start 07/02/18 at 15:45 Lorazepam (Ativan) 0.5 mg PRN Q4HRS PRN PO ANXIETY / AGITATION Last administered on 07/17/18 20:54; Start 07/02/18 at 15:45 Enoxaparin Sodium (Lovenox 40mg Syringe) 40 mg DAILY SQ Last administered on 09:07; Start 07/03/18 at 09:00 Hydralazine HCl (Apresoline Inj) 10 mg PRN Q4HRS PRN IVP ELEVATED BP, SEE COMMENTS Last administered on 07/20/18at 02:45; Start 07/02/18 at 16:45 Nitroglycerin (Nitro-Bid Oint) 0.5 inch Q6HRS TP Last administered on 05:58; Start 07/02/18 at 17:30 Aspirin (Children'S Aspirin) 81 mg DAILY PO Last administered on 07/22/18at 09: 08; Start 07/03/18 at 09:00 Lorazepam (Ativan) 2 mg PRN Q4HRS PRN IV ALCOHOL WITHDRAWAL; Start 07/02/18 at 18:30; Status Cancel Cefepime HCl (Maxipime) 2 gm Q8HRS IVP Last administered on 07/04/18at 14:00; Start 07/03/18 at 14:30; Stop 07/04/18 at 18:56; Status DC Acyclovir Sodium 730 mg/Dextrose 264.6 ml @ 264.6 mls/ hr Q8HRS IV Last administered on 07/04/18at 05:07; Start 07/03/18 at 15:00; Stop 07/04/18 at 12:26 ; Status DC Vancomycin HCl (Vanco Per Pharmacy) 1 each PRN DAILY PRN MC SEE COMMENTS Last administered on 07/04/18at 12:31; Start 07/03/18 at 14:15; Stop 07/04/18 at 18:56 ; Status DC Ampicillin Sodium 2 gm/Sodium Chloride 100 ml @ 200 mls/hr Q4HRS IV Last administered on 07/04/18at 16:24; Start 07/03/18 at 16:00; Stop 07/04/18 at 18:56 ; Status DC Vancomycin HCl 1.5 gm/Sodium Chloride 500 ml @ 250 mls/hr 1X ONCE IV Last administered on 07/03/18at 17:54; Start 07/03/18 at 15:00; Stop 07/03/18 at 16:59 ; Status DC Levetiracetam 500 mg/Dextrose 105 ml @ 420 mls/hr Q12HR IV Last administered on 07/07/18at 09:55; Start 07/03/18 at 21:00; Stop 07/07/18 at 11:46; Status DC Divalproex Sodium (Depakote) 500 mg BID PO ; Start 07/03/18 at 21:00; Stop 07/04 at 16:20; Status DC Vancomycin HCl 1 gm/Sodium Chloride 250 ml @ 250 mls/hr Q12H IV Last administered on 07/04/18at 18:45; Start 07/04/18 at 06:00; Stop 07/04/18 at 18:58 ; Status DC Vancomycin HCl (Vancomycin Trough Level) 1 each 1X ONCE MC ; Start 07/05/18 at 05:30; Stop 07/05/18 at 05:31; Status Cancel Amino Acids/ Glycerin/ Electrolytes 1,000 ml @ 80 mls/hr [id number] IV Last administered on 07/21/18at 23:58; Start 07/03/18 at 19:15 Acyclovir Sodium 620 mg/Dextrose 262.4 ml @ 262.4 mls/ hr Q8HRS IV Last administered on 07/05/18at 05:05; Start 07/04/18 at 14:00; Stop 07/05/18 at 13:59 ; Status DC Lactobacillus Rhamnosus (Culturelle) 1 cap BID PO Last administered on at 09:09; Start 07/04/18 at 21:00 Valproic Acid 500 mg/Dextrose 55 ml @ 55 mls/hr Q8HRS IV Last administered on 06:05; Start 07/04/18 at 17:00; Stop 07/10/18 at 12:12; Status DC Acyclovir Sodium 620 mg/Dextrose 112.4 ml @ 112.4 mls/ hr Q8HRS IV Last administered on 07/06/18at 05:19; Start 07/05/18 at 14:00; Stop 07/06/18 at 13:52 ; Status DC Cefepime HCl (Maxipime) 1 gm Q8HRS IVP Last administered on 07/08/18at 05:47; Start 07/04/18 at 22:00; Stop 07/08/18 at 09:20; Status DC Iohexol (Omnipaque 350 Mg/ml) 75 ml 1X ONCE IV Last administered on 07/05/18at 11:45; Start 07/05/18 at 11:15; Stop 07/05/18 at 11:16; Status DC Info (CONTRAST GIVEN -- Rx MONITORING) 1 each PRN DAILY PRN MC SEE COMMENTS; Start 07/05/18 at 11:30; Stop 07/07/18 at 11:29; Status DC Carbamazepine (TEGretol) 200 mg BID PO Last administered on 07/22/18at 09:08; Start 07/07/18 at 21:00 Ceftriaxone Sodium (Rocephin) 2 gm Q24H IVP Last administered on 07/09/18at 08:02 ; Start 07/08/18 at 10:00; Stop 07/09/18 at 11:51; Status DC Penicillin G Potassium [id number] unit/Dextrose 100 ml @ 100 mls/hr Q4HRS IV Last administered on 07/21/18at 20:47; Start 07/09/18 at 12:00; Stop 07/21/18 at 23:59; Status DC Barium Sulfate (Varibar Thin Liquid Apple) 148 gm 1X ONCE PO Last administered on 07/09/18at 13:53; Start 07/09/18 at 13:00; Stop 07/09/18 at 13:01; Status DC Non-Formulary Medication 1 ea QID PO Last administered on 07/13/18at 20:04; Start 07/11/18 at 21:00; Stop 07/14/18 at 15:35; Status DC Probenecid (Benemid) 500 mg QID PO Last administered on 07/20/18at 08:25; Start 07/14/18 at 17:00; Stop 07/20/18 at 13:00; Status DC Barium Sulfate (Varibar Thin Liquid Apple) 148 gm 1X ONCE PO ; Start 07/16/18 at 14:00; Stop 07/16/18 at 14:01; Status DC Haloperidol Lactate (Haldol Inj) 5 mg PRN Q6HRS PRN IVP AGITATION Last administered on 07/21/18at 02:58; Start 07/19/18 at 21:15 Active Scripts Active Reported Zithromax (Azithromycin) 500 Mg Tablet 1 Tab PO DAILY Aspirin 81 Mg Tab.chew 81 Mg PO DAILY Hydrocodone-Apap 5-325 (Hydrocodone Bit/Acetaminophen) 1 Tab Tablet 1 Tab PO PRN Q6HRS PRN Vitals/I & O Vital Sign - Last 24 Hours 07/21/18 07/21/18 07/21/18 07/21/18 17:56 19:00 19:36 23:05 Temp 98.4 98.3 98.4 98.3 Pulse 50 94 73 Resp 20 20 B/P (MAP) 98/52 136/74 (94) 140/71 (94) Pulse Ox 99 98 O2 Delivery Room Air Room Air Room Air 07/21/18 07/22/18 07/22/18 07/22/18 23:57 03:42 05:58 07:00 Temp 97.8 97.6 97.8 97.6 Pulse 73 76 71 75 Resp 20 16 B/P (MAP) 140/71 155/65 (95) 151/66 155/77 (103) Pulse Ox 96 98 O2 Delivery Room Air Room Air 07/22/18 08:15 O2 Delivery Room Air Intake and Output 07/21/18 07/21/18 07/22/18 15:00 23:00 07:00 Intake Total 100 ml 100 ml 1000 ml Balance 100 ml 100 ml 1000 ml MY OTT MD Jul 22, 2018 11:59
--- NOTE | 2018-07-22 12:15 | NUR ---
SANDOVAL following pt. SANDOVAL spoke with pt's friend Catalino Danielle, phone: [phone] in pt's room. He reported he has known pt for more than 30 years and pt also has been in [place] for that amount of time. Confirmed no family other than girlfriend Chelsie in [place] but pt's mother live in [place] with his siblings (3-4 brothers), Nancyjagdish reports he has met only one sister. Pt pretty much keeps things to himself and is not involved in his own community or communicate with his family back in [place]. Due to this, Catalino reports it will be unlikely to find someone that will be willing to help in the community. Catalino was trying to see if pt can return back to [place] to his family. PC discussed that might be unlikely with his current condition. Orthodoxy is not important to pt and pt does not go to Muslim. Pt also used to be a solider in [place], was in care home when [place] was president and had a 'tough life'. Pt did not 'take care of himself well' even after moving to [place] as a refugee. 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 Catalino states pt has not discussed about what he wanted in case he became really ill. He also reports pt's is not citizen but has a green card which has . He stated he was trying to raise money so he can help with renewing pt's green card. He also reports pt has not been eating well the last 7-8 years. The last time he saw pt, pt was having difficulty walking but before that pt was walking normal. Catalino reports pt's girlfriend might have to take care of him and he might be able to help sometimes but can not provide 24 hour care. Palliative care also present during the above conversation.
[2018-07-22 15:00] VITALS: BP 130/70
--- NOTE | 2018-07-22 15:00 | NUR ---
SANDOVAL phoned Chelsie and left a voice mail clearly requesting her if she is able to be involved in pt's care moving forward as she did not show up for a meeting again due to another 'car trouble'.
[2018-07-22] MEDS: AMINO AC 3%/ELECTROLYTE/GLYCER 1,000 ML IV SCH (15:32)
[2018-07-22 19:00] VITALS: BP 138/62
[2018-07-22 23:00] VITALS: BP 151/67
[2018-07-23 03:00] VITALS: BP 160/60
[2018-07-23] MEDS: AMINO AC 3%/ELECTROLYTE/GLYCER 1,000 ML IV SCH ×2 (04:07→15:56)
[2018-07-23] MEDS: NITROGLYCERIN OINT 1 GM PACKET. TP SCH ×5 (05:10→23:33)
[2018-07-23 07:15] VITALS: BP 147/59
[2018-07-23] MEDS: carBAMazepine 200 MG TABLET PO SCH ×2 (09:13→21:04)
[2018-07-23] MEDS: ASPIRIN CHEWABLE 81 MG TABLET. PO SCH (09:13)
[2018-07-23] MEDS: ENOXAPARIN 40 MG/0.4 ML SYRINGE. SQ SCH (09:13)
[2018-07-23] MEDS: LACTOBACILLUS RHAMNOSUS GG 1 CAPSULE. PO SCH ×2 (09:15→21:04)
[2018-07-23 10:52] VITALS: BP 127/56
--- NOTE | 2018-07-23 10:58 | PDOC ---
PROGRESS NOTES Chief Complaint Chief Complaint Complex focal seizure went status epilepticus on 07/02/16. 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 Diabetes 2 Peripheral vascular disease. Tobacco abuse. Left nephrectomy. Gastroesophageal reflux disease. Aspiration Pneumonitis Tremors (?), Age-related atrophy, and evidence of chronic small vessel disease SEVERE MALNUTRITION Difficult to arouse, noncommunicative, no seizure like activity/tremors History of Present Illness History of Present Illness no changes, intermittently confused ativan given overnight not start tube feeds as he can tolerate a regular diet when awake and alert Continue ProcalAmine for now electrolytes stable palliative care consulted continue supportive care PT consulted Has finished course of penicillin for neurosyphilis Vitals Vitals Vital Signs Date Time Temp Pulse Resp B/P (MAP) Pulse Ox O2 Delivery O2 Flow Rate FiO2 07/23/18 10:52 97.7 76 18 127/56 (79) 96 Room Air 97.7 Physical Exam Physical Exam GENERAL: Resting quietly, appears comfortable Difficult to arouse, noncommunicative, no seizure like activity/tremors HEENT: Pupils equally round reactive NECK: Supple. LUNGS: Clear HEART: S1 and S2. ABDOMEN: Soft, no grimace or guarding to palpation, BS present EXTREMITIES: No edema and no cyanosis. SKIN: Warm and dry. No generalized rash. 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: Difficult to arouse, noncommunicative, no seizure like activity/tremors PICC RUE (07/09) General: Alert, No acute distress, Other (mumbling responses to question, easy to arrouse, left arm and hand fasiculations, pleasantly confused) Heart: Regular rate, Normal S1, Normal S2, No murmurs Lungs: Clear, Other (airway patent, normal respiratory effort, no crackles or wheezing) Abdomen: Normal bowel sounds, Soft, No tenderness, No hepatosplenomegaly, No masses, Other (no grimace or guarding to palpation) Extremities: No clubbing, No cyanosis, No edema, Other (Strong peripheral pulses 3+, PICC RUE C/D/I) Skin: No rashes, No breakdown, No significant lesion Assessment and Plan Assessmemt and Plan Problems Medical Problems: (1) Elevated troponin Status: Acute (2) Tremor Status: Acute Comment Review of Relevant I have reviewed the following items kendrick (where applicable) has been applied. Labs Laboratory Tests Test 07/22/18 04:50 White Blood Count 6.6 x10^3/uL (4.0-11.0) Red Blood Count 5.30 x10^6/uL (4.30-5.70) Hemoglobin 13.1 g/dL (13.0-17.5) Hematocrit 40.3 % (39.0-53.0) Mean Corpuscular Volume 76 fL (79-100) Mean Corpuscular Hemoglobin 25 pg (25-35) Mean Corpuscular Hemoglobin Concent 32 g/dL (31-37) Red Cell Distribution Width 15.4 % (11.5-14.5) Platelet Count 328 x10^3/uL (140-400) Neutrophils (%) (Auto) 53 % (31-73) Lymphocytes (%) (Auto) 23 % (24-48) Monocytes (%) (Auto) 11 % (0-9) Eosinophils (%) (Auto) 12 % (0-3) Basophils (%) (Auto) 1 % (0-3) Neutrophils # (Auto) 3.5 x10^3uL (1.8-7.7) Lymphocytes # (Auto) 1.5 x10^3/uL (1.0-4.8) Monocytes # (Auto) 0.7 x10^3/uL (0.0-1.1) Eosinophils # (Auto) 0.8 x10^3/uL (0.0-0.7) Basophils # (Auto) 0.1 x10^3/uL (0.0-0.2) Sodium Level 139 mmol/L (136-145) Potassium Level 4.6 mmol/L (3.5-5.1) Chloride Level 102 mmol/L (98-107) Carbon Dioxide Level 27 mmol/L (21-32) Anion Gap 10 (6-14) Blood Urea Nitrogen 18 mg/dL (8-26) Creatinine 0.8 mg/dL (0.7-1.3) Estimated GFR (Cockcroft-Gault) 97.6 Glucose Level 89 mg/dL (70-99) Calcium Level 9.5 mg/dL (8.5-10.1) Microbiology 07/02/18 Blood Culture - Final, Complete NO GROWTH AFTER 5 DAYS 07/05/18 CSF Gram Stain - Final, Complete Medications Current Medications Sodium Chloride 1,000 ml @ 1,000 mls/hr 1X ONCE IV Last administered on at 10:00; Start 07/02/18 at 10:00; Stop 07/02/18 at 10:59; Status DC Lorazepam (Ativan) 0.5 mg 1X ONCE IV Last administered on 07/02/18at 12:12; Start 07/02/18 at 12:30; Stop 07/02/18 at 12:31; Status DC Aspirin (Children'S Aspirin) 324 mg 1X ONCE PO Last administered on 07/02/18 13:18; Start 07/02/18 at 13:30; Stop 07/02/18 at 13:31; Status DC Acetaminophen (Tylenol) 650 mg PRN Q4HRS PRN PO FEVER; Start 07/02/18 at 14:30 ; Stop 07/02/18 at 18:38; Status DC Lorazepam (Ativan) 2 mg PRN Q4HRS PRN IV ANXIETY/AGITATION/ETOH WITHDRL Last administered on 07/23/18 05:09; Start 07/02/18 at 15:30 Levetiracetam 750 mg/Dextrose 107.5 ml @ 420 mls/hr Q12HR IV Last administered on 07/03/18 09:35; Start 07/02/18 at 16:30; Stop 07/03/18 at 14:17 ; Status DC Sodium Chloride (Normal Saline Flush 3ml) 3 ml QSHIFT PRN IV AFTER MEDS AND BLOOD DRAWS Last administered on 07/16/18at 07:35; Start 07/02/18 at 15:45 Sodium Chloride 1,000 ml @ 100 mls/hr Q10H IV Last administered on 07/02/18 16:04; Start 07/02/18 at 16:30; Stop 07/04/18 at 16:37; Status DC Ondansetron HCl (Zofran) 4 mg PRN Q4HRS PRN IV NAUSEA/VOMITING; Start 07/02/18 at 15:45 Zolpidem Tartrate (Ambien) 5 mg PRN QHS PRN PO INSOMNIA Last administered on at 20:58; Start 07/02/18 at 15:45 Acetaminophen (Tylenol) 650 mg PRN Q4HRS PRN PO TEMP OVER 100.4F OR MILD PAIN Last administered on 07/21/18 20:47; Start 07/02/18 at 15:45 Al Hydroxide/Mg Hydroxide (Mylanta Plus Xs) 30 ml PRN DAILY PRN PO HEARTBURN / GAS; Start 07/02/18 at 15:45 Clonidine HCl (Catapres) 0.1 mg PRN Q6HRS PRN PO SBP>160 OR DBP>90; Start 07/02 at 15:45 Sodium Monofluorophosphate (Fleet Adult) 133 ml PRN DAILY PRN CO CONSTIPATION; Start 07/02/18 at 15:45 Diphenhydramine HCl (Benadryl) 25 mg PRN Q4HRS PRN IVP ITCHING Last administered on 07/20/18 21:20; Start 07/02/18 at 15:45 Docusate Sodium (Colace) 100 mg PRN BID PRN PO CONSTIPATION Last administered on 07/21/18 09:53; Start 07/02/18 at 15:45 Albuterol Sulfate (Ventolin Neb Soln) 2.5 mg PRN Q4HRS PRN NEB SHORTNESS OF BREATH; Start 07/02/18 at 15:45 Guaifenesin (Robitussin) 200 mg PRN Q4HRS PRN PO COUGH; Start 07/02/18 at 15:45 Lorazepam (Ativan) 0.5 mg PRN Q4HRS PRN PO ANXIETY / AGITATION Last administered on 07/17/18 20:54; Start 07/02/18 at 15:45 Enoxaparin Sodium (Lovenox 40mg Syringe) 40 mg DAILY SQ Last administered on 09:13; Start 07/03/18 at 09:00 Hydralazine HCl (Apresoline Inj) 10 mg PRN Q4HRS PRN IVP ELEVATED BP, SEE COMMENTS Last administered on 07/20/18 02:45; Start 07/02/18 at 16:45 Nitroglycerin (Nitro-Bid Oint) 0.5 inch Q6HRS TP Last administered on 05:10; Start 07/02/18 at 17:30 Aspirin (Children'S Aspirin) 81 mg DAILY PO Last administered on 07/23/18at 09: 13; Start 07/03/18 at 09:00 Lorazepam (Ativan) 2 mg PRN Q4HRS PRN IV ALCOHOL WITHDRAWAL; Start 07/02/18 at 18:30; Status Cancel Cefepime HCl (Maxipime) 2 gm Q8HRS IVP Last administered on 07/04/18at 14:00; Start 07/03/18 at 14:30; Stop 07/04/18 at 18:56; Status DC Acyclovir Sodium 730 mg/Dextrose 264.6 ml @ 264.6 mls/ hr Q8HRS IV Last administered on 07/04/18at 05:07; Start 07/03/18 at 15:00; Stop 07/04/18 at 12:26 ; Status DC Vancomycin HCl (Vanco Per Pharmacy) 1 each PRN DAILY PRN MC SEE COMMENTS Last administered on 07/04/18at 12:31; Start 07/03/18 at 14:15; Stop 07/04/18 at 18:56 ; Status DC Ampicillin Sodium 2 gm/Sodium Chloride 100 ml @ 200 mls/hr Q4HRS IV Last administered on 07/04/18at 16:24; Start 07/03/18 at 16:00; Stop 07/04/18 at 18:56 ; Status DC Vancomycin HCl 1.5 gm/Sodium Chloride 500 ml @ 250 mls/hr 1X ONCE IV Last administered on 07/03/18at 17:54; Start 07/03/18 at 15:00; Stop 07/03/18 at 16:59 ; Status DC Levetiracetam 500 mg/Dextrose 105 ml @ 420 mls/hr Q12HR IV Last administered on 07/07/18at 09:55; Start 07/03/18 at 21:00; Stop 07/07/18 at 11:46; Status DC Divalproex Sodium (Depakote) 500 mg BID PO ; Start 07/03/18 at 21:00; Stop 07/04 at 16:20; Status DC Vancomycin HCl 1 gm/Sodium Chloride 250 ml @ 250 mls/hr Q12H IV Last administered on 07/04/18at 18:45; Start 07/04/18 at 06:00; Stop 07/04/18 at 18:58 ; Status DC Vancomycin HCl (Vancomycin Trough Level) 1 each 1X ONCE MC ; Start 07/05/18 at 05:30; Stop 07/05/18 at 05:31; Status Cancel Amino Acids/ Glycerin/ Electrolytes 1,000 ml @ 80 mls/hr [id number] IV Last administered on 07/23/18at 04:07; Start 07/03/18 at 19:15 Acyclovir Sodium 620 mg/Dextrose 262.4 ml @ 262.4 mls/ hr Q8HRS IV Last administered on 07/05/18at 05:05; Start 07/04/18 at 14:00; Stop 07/05/18 at 13:59 ; Status DC Lactobacillus Rhamnosus (Culturelle) 1 cap BID PO Last administered on at 09:15; Start 07/04/18 at 21:00 Valproic Acid 500 mg/Dextrose 55 ml @ 55 mls/hr Q8HRS IV Last administered on at 06:05; Start 07/04/18 at 17:00; Stop 07/10/18 at 12:12; Status DC Acyclovir Sodium 620 mg/Dextrose 112.4 ml @ 112.4 mls/ hr Q8HRS IV Last administered on 07/06/18at 05:19; Start 07/05/18 at 14:00; Stop 07/06/18 at 13:52 ; Status DC Cefepime HCl (Maxipime) 1 gm Q8HRS IVP Last administered on 07/08/18at 05:47; Start 07/04/18 at 22:00; Stop 07/08/18 at 09:20; Status DC Iohexol (Omnipaque 350 Mg/ml) 75 ml 1X ONCE IV Last administered on 07/05/18at 11:45; Start 07/05/18 at 11:15; Stop 07/05/18 at 11:16; Status DC Info (CONTRAST GIVEN -- Rx MONITORING) 1 each PRN DAILY PRN MC SEE COMMENTS; Start 07/05/18 at 11:30; Stop 07/07/18 at 11:29; Status DC Carbamazepine (TEGretol) 200 mg BID PO Last administered on 07/23/18at 09:13; Start 07/07/18 at 21:00 Ceftriaxone Sodium (Rocephin) 2 gm Q24H IVP Last administered on 07/09/18 08:02 ; Start 07/08/18 at 10:00; Stop 07/09/18 at 11:51; Status DC Penicillin G Potassium [id number] unit/Dextrose 100 ml @ 100 mls/hr Q4HRS IV Last administered on 07/21/18at 20:47; Start 07/09/18 at 12:00; Stop 07/21/18 at 23:59; Status DC Barium Sulfate (Varibar Thin Liquid Apple) 148 gm 1X ONCE PO Last administered on 07/09/18at 13:53; Start 07/09/18 at 13:00; Stop 07/09/18 at 13:01; Status DC Non-Formulary Medication 1 ea QID PO Last administered on 07/13/18at 20:04; Start 07/11/18 at 21:00; Stop 07/14/18 at 15:35; Status DC Probenecid (Benemid) 500 mg QID PO Last administered on 07/20/18at 08:25; Start 07/14/18 at 17:00; Stop 07/20/18 at 13:00; Status DC Barium Sulfate (Varibar Thin Liquid Apple) 148 gm 1X ONCE PO ; Start 07/16/18 at 14:00; Stop 07/16/18 at 14:01; Status DC Haloperidol Lactate (Haldol Inj) 5 mg PRN Q6HRS PRN IVP AGITATION 2ND CHOICE Last administered on 07/21/18at 02:58; Start 07/19/18 at 21:15 Active Scripts Active Reported Zithromax (Azithromycin) 500 Mg Tablet 1 Tab PO DAILY Aspirin 81 Mg Tab.chew 81 Mg PO DAILY Hydrocodone-Apap 5-325 (Hydrocodone Bit/Acetaminophen) 1 Tab Tablet 1 Tab PO PRN Q6HRS PRN Vitals/I & O Vital Sign - Last 24 Hours 07/22/18 07/22/18 07/22/18 07/22/18 11:00 13:13 15:00 18:19 Temp 98.2 98.5 98.2 98.5 Pulse 72 72 65 66 Resp 18 18 B/P (MAP) 151/65 (93) 151/65 130/70 (90) 148/64 Pulse Ox 98 99 O2 Delivery Room Air Room Air 4/07/22/18 07/22/18 07/23/18 19:00 20:35 23:00 00:00 Temp 98.2 98.8 98.2 98.8 Pulse 72 73 72 Resp 18 18 B/P (MAP) 138/62 (87) 151/67 (95) 138/62 Pulse Ox 98 98 O2 Delivery Room Air Room Air Room Air 07/23/18 07/23/18 07/23/18 07/23/18 03:00 05:10 07:15 08:22 Temp 97.6 98.8 97.6 98.8 Pulse 81 81 69 Resp 18 18 B/P (MAP) 160/60 (93) 160/60 147/59 (88) Pulse Ox 99 95 O2 Delivery Room Air Room Air Room Air 07/23/18 10:52 Temp 97.7 97.7 Pulse 76 Resp 18 B/P (MAP) 127/56 (79) Pulse Ox 96 O2 Delivery Room Air Intake and Output 07/22/18 07/22/18 07/23/18 15:00 23:00 07:00 Intake Total 120 ml 1000 ml 50 ml Balance 120 ml 1000 ml 50 ml Nutrition Consultation Dietary Evaluation: Recommendations by RD: Increase Calorie Intake, Protein supplementation Comments: PPN day 20- rec d/c. continue diet per BRIDGE BUILDER w/ supplements- encourage po intake monitor plan of care, may consider tube feedings to meet nutrition needs palliative following Expected Outcomes/Goals: new goal 07/11: to meet > 75% est nutr need via po intake- goal not met, ongoing 07/22/18 Interpretation of weight loss: >7.5% in 3 months Malnutrition Findings: Weight Status: Appropriate LINDA ECHEVARRIA MD Jul 23, 2018 10:57
--- NOTE | 2018-07-23 11:54 | PDOC ---
Infectious Disease Note Subjective: Subjective No fevers alert awake,confused ROS: ROS Negative except for above. Vital Signs: Vital Signs Vital Signs Date Time Temp Pulse Resp B/P (MAP) Pulse Ox O2 Delivery O2 Flow Rate FiO2 07/23/18 11:20 76 127/56 07/23/18 10:52 97.7 18 96 Room Air 97.7 Physical Exam: PHYSICAL EXAM GENERAL: Resting quietly, appears comfortable Difficult to arouse, noncommunicative, no seizure like activity/tremors HEENT: Pupils equally round reactive NECK: Supple. LUNGS: Clear HEART: S1 and S2. ABDOMEN: Soft, no grimace or guarding to palpation, BS present EXTREMITIES: No edema and no cyanosis. SKIN: Warm and dry. No generalized rash. 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, noncommunicative, no seizure like activity/tremors PICC RUE (07/09) Medications: Inpatient Meds: Current Medications Medications (Trade) Dose Ordered Sig/Gloira Start Time Stop Time Status Last Admin Dose Admin Acetaminophen (Tylenol) 650 mg PRN Q4HRS PRN 07/02/18 15:45 07/21/18 20:47 650 MG Acyclovir Sodium 620 mg/Dextrose 112.4 ml @ 112.4 mls/ hr Q8HRS 07/05/18 14:00 07/06/18 13:52 DC 07/06/18 05:19 112.4 MLS/HR Acyclovir Sodium 730 mg/Dextrose 264.6 ml @ 264.6 mls/ hr Q8HRS 07/03/18 15:00 07/04/18 12:26 DC 07/04/18 05:07 264.6 MLS/HR Al Hydroxide/Mg Hydroxide (Mylanta Plus Xs) 30 ml PRN DAILY PRN 07/02/18 15:45 Albuterol Sulfate (Ventolin Neb Soln) 2.5 mg PRN Q4HRS PRN 07/02/18 15:45 Amino Acids/ Glycerin/ Electrolytes 1,000 ml @ 80 mls/hr [id number] 07/03/18 19:15 07/23/18 04:07 80 MLS/HR Ampicillin Sodium 2 gm/Sodium Chloride 100 ml @ 200 mls/hr Q4HRS 07/03/18 16:00 07/04/18 18:56 DC 07/04/18 16:24 200 MLS/HR Aspirin (Children'S Aspirin) 81 mg DAILY 07/03/18 09:00 07/23/18 09:13 81 MG Barium Sulfate (Varibar Thin Liquid Apple) 148 gm 1X ONCE 07/16/18 14:00 07/16/18 14:01 DC Carbamazepine (TEGretol) 200 mg BID 07/07/18 21:00 07/23/18 09:13 200 MG Cefepime HCl (Maxipime) 1 gm Q8HRS 07/04/18 22:00 07/08/18 09:20 DC 07/08/18 05:47 1 GM Ceftriaxone Sodium (Rocephin) 2 gm Q24H 07/08/18 10:00 07/09/18 11:51 DC 07/09/18 08:02 2 GM Clonidine HCl (Catapres) 0.1 mg PRN Q6HRS PRN 07/02/18 15:45 Diphenhydramine HCl (Benadryl) 25 mg PRN Q4HRS PRN 07/02/18 15:45 07/20/18 21:20 25 MG Divalproex Sodium (Depakote) 500 mg BID 07/03/18 21:00 07/04/18 16:20 DC Docusate Sodium (Colace) 100 mg PRN BID PRN 07/02/18 15:45 07/21/18 09:53 100 MG Enoxaparin Sodium (Lovenox 40mg Syringe) 40 mg DAILY 07/03/18 09:00 07/23/18 09:13 40 MG Guaifenesin (Robitussin) 200 mg PRN Q4HRS PRN 07/02/18 15:45 Haloperidol Lactate (Haldol Inj) 5 mg PRN Q6HRS PRN 07/19/18 21:15 07/21/18 02:58 5 MG Hydralazine HCl (Apresoline Inj) 10 mg PRN Q4HRS PRN 07/02/18 16:45 07/20/18 02:45 10 MG Info (CONTRAST GIVEN -- Rx MONITORING) 1 each PRN DAILY PRN 07/05/18 11:30 07/07/18 11:29 DC Iohexol (Omnipaque 350 Mg/ml) 75 ml 1X ONCE 07/05/18 11:15 07/05/18 11:16 DC 07/05/18 11:45 75 ML Lactobacillus Rhamnosus (Culturelle) 1 cap BID 07/04/18 21:00 07/23/18 09:15 1 CAP Levetiracetam 500 mg/Dextrose 105 ml @ 420 mls/hr Q12HR 07/03/18 21:00 07/07/18 11:46 DC 07/07/18 09:55 420 MLS/HR Levetiracetam 750 mg/Dextrose 107.5 ml @ 420 mls/hr Q12HR 07/02/18 16:30 07/03/18 14:17 DC 07/03/18 09:35 420 MLS/HR Lorazepam (Ativan) 2 mg PRN Q4HRS PRN 07/02/18 18:30 Cancel Nitroglycerin (Nitro-Bid Oint) 0.5 inch Q6HRS 07/02/18 17:30 07/23/18 11:20 0.5 INCH Non-Formulary Medication 1 ea QID 07/11/18 21:00 07/14/18 15:35 DC 07/13/18 20:04 1 EA Ondansetron HCl (Zofran) 4 mg PRN Q4HRS PRN 07/02/18 15:45 Penicillin G Potassium [id number] unit/Dextrose 100 ml @ 100 mls/hr Q4HRS 07/09/18 12:00 07/21/18 23:59 DC 07/21/18 20:47 100 MLS/HR Probenecid (Benemid) 500 mg QID 07/14/18 17:00 07/20/18 13:00 DC 07/20/18 08:25 500 MG Sodium Monofluorophosphate (Fleet Adult) 133 ml PRN DAILY PRN 07/02/18 15:45 Sodium Chloride 1,000 ml @ 100 mls/hr Q10H 07/02/18 16:30 07/04/18 16:37 DC 07/02/18 16:04 100 MLS/HR Sodium Chloride (Normal Saline Flush 3ml) 3 ml QSHIFT PRN 07/02/18 15:45 07/16/18 07:35 3 ML Valproic Acid 500 mg/Dextrose 55 ml @ 55 mls/hr Q8HRS 07/04/18 17:00 07/10/18 12:12 DC 07/10/18 06:05 55 MLS/HR Vancomycin HCl (Vanco Per Pharmacy) 1 each PRN DAILY PRN 07/03/18 14:15 07/04/18 18:56 DC 07/04/18 12:31 1 EACH Vancomycin HCl (Vancomycin Trough Level) 1 each 1X ONCE 07/05/18 05:30 07/05/18 05:31 Cancel Vancomycin HCl 1.5 gm/Sodium Chloride 500 ml @ 250 mls/hr 1X ONCE 07/03/18 15:00 07/03/18 16:59 DC 07/03/18 17:54 250 MLS/HR Vancomycin HCl 1 gm/Sodium Chloride 250 ml @ 250 mls/hr Q12H 07/04/18 06:00 07/04/18 18:58 DC 07/04/18 18:45 250 MLS/HR Zolpidem Tartrate (Ambien) 5 mg PRN QHS PRN 07/02/18 15:45 07/20/18 20:58 5 MG Objective: Assessment: 1. Encephalopathy, likely metabolic though pt is not able to give any history, no family at bedside. Unable to obtain MRI as the patient has metallic fragments in the floor of the left maxillary sinus. 2. Status epilepticus. on 3. 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 4. Hypertensive encephalopathy. 5. Disorientation,Confusion. 6. TPPA positive,syphilis unknown status, RPR postiive HIV negative, Acute hepatitis panel neg 7. History of incarceration more than 20 years ago. 8. Diabetes. 9. Peripheral vascular disease. 10. Smoking. 11. Left nephrectomy. 12. Peripheral arterial disease. 13. Gastroesophageal reflux disease. 14. Aspiration Pneumonitis 15. Tremors ? etiology could be from noninfectious etiology,resolved Plan: Plan of Care Pt completed 14 days of PCN through 07/21/2018 He will need a repeat CSF VDRL in 3 mos to 6 mos and VDRL should be nonreactive or will require retreatment Will need repeat TB spot in a few month Maintain aspiration precaution. 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
--- NOTE | 2018-07-23 13:55 | NUR ---
SW following pt. Spoke with ID and primary Physician regarding code status. Both agree with DNR/DNI. Physician reported code status will be changed to DNR/DNI and agreeable with pt being screened by [facility], phone: [phone], fax: [phone] for potential inpatient hospice. SANDOVAL phoned and faxed referral to [facility]. Pt acceptance and admission pending. Discussed with RN and PC. Attempted to reach Chelsie again but voice mail was full. Will continue to follow.
--- NOTE | 2018-07-23 14:47 | NUR ---
Patient squirmed himself out of bed again, found on floor by another RN on unit. Patient was helped back into bed and thoroughly assessed. No apparent injuries. Dr. Silveira notified.
[2018-07-23 15:11] VITALS: BP 130/64
--- NOTE | 2018-07-23 15:42 | PDOC2 ---
PALLIATIVE CARE Palliative Care Note Palliative Care Patient remains agitated --receiving Ativan 2 mg IV x 1-3 doses per 24 hours. Patient remains Full Code--recommendation is to change to DNR/DNI Spoke with dAilene NICK. She has attempted to reach Chelsie--mail box full -- unable to leave message. Patient has been screened by [facility]. Per Adilene NICK. Patient does not qualify for IP Hospice. Discussed guardianship with Adilene NICK who is proceeding according Administration recommendations. ISACC LR Jul 23, 2018 15:42
--- NOTE | 2018-07-23 15:43 | NUR ---
SANDOVAL following pt. Spoke with Shae at [facility]. Pt at this time does not meet criteria for GIP. Shae reported pt can possibly qualify for hospice. FERNANDO OCHOA. Per Director request, SANDOVAL phoned Shanae Ramírez (Senior Enlisted Advisor), phone: [phone] and discussed about pt's case. Shanae reported she will e-mail SANDOVAL with questions. Addendum: 07/23/18 at 1605 by ISAMAR NICK Jyoti from [facility] attempted to visit Chelsie at address listed on pt's driving license to gather additional information to assist with dc planning but she was not at home. Neighbors confirmed 'a man and a woman lived at the house but were rarely at home' and 'they had not seen the man in while'. Neighbors also reported 'the woman usually comes home late at night time'. Jyoti left a card on door requesting a call back.
[2018-07-23] MEDS: SODIUM PHOSPHATES 19/7GM 133 ML ENEMA. PR PRN (17:54)
[2018-07-23 19:00] VITALS: BP 102/69
--- NOTE | 2018-07-23 22:00 | NUR ---
Chelsie showed up and stated she was going to spend the night so she could talk to SW in the am. She stayed for appx 20 minutes and stated she had to leave to let her son in the house and would return. Addendum: 07/26/18 at 0305 by KAREN PATEL RN RN Patient became agitated and restless during Amber's visit. After the interventions of repositioning and a bed bath were implemented to try and relax the patient, Ativan was given. The patient slept for the remainder of the shift.
[2018-07-23 23:00] VITALS: BP 153/64
[2018-07-24 03:00] VITALS: BP 169/68
[2018-07-24] MEDS: AMINO AC 3%/ELECTROLYTE/GLYCER 1,000 ML IV SCH ×2 (04:23→16:50)
[2018-07-24] MEDS: NITROGLYCERIN OINT 1 GM PACKET. TP SCH ×3 (06:06→18:29)
[2018-07-24 07:00] VITALS: BP 121/53
--- NOTE | 2018-07-24 09:11 | PDOC ---
Infectious Disease Note Subjective: Subjective No fevers Pt is sleepy arousable still mumbles says has no pain d/wRN Vital Signs: Vital Signs Vital Signs Date Time Temp Pulse Resp B/P (MAP) Pulse Ox O2 Delivery O2 Flow Rate FiO2 07/24/18 07:00 98.5 72 16 121/53 (75) 97 Room Air 98.5 Physical Exam: PHYSICAL EXAM GENERAL: Resting quietly, appears comfortable Difficult to arouse, noncommunicative, no seizure like activity/tremors HEENT: Pupils equally round reactive NECK: Supple. LUNGS: Clear HEART: S1 and S2. ABDOMEN: Soft, no grimace or guarding to palpation, BS present EXTREMITIES: No edema and no cyanosis. SKIN: Warm and dry. No generalized rash. 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, noncommunicative, no seizure like activity/tremors PICC RUE (07/09) Medications: Inpatient Meds: Current Medications Medications (Trade) Dose Ordered Sig/Gloria Start Time Stop Time Status Last Admin Dose Admin Acetaminophen (Tylenol) 650 mg PRN Q4HRS PRN 07/02/18 15:45 07/21/18 20:47 650 MG Acyclovir Sodium 620 mg/Dextrose 112.4 ml @ 112.4 mls/ hr Q8HRS 07/05/18 14:00 07/06/18 13:52 DC 07/06/18 05:19 112.4 MLS/HR Acyclovir Sodium 730 mg/Dextrose 264.6 ml @ 264.6 mls/ hr Q8HRS 07/03/18 15:00 07/04/18 12:26 DC 07/04/18 05:07 264.6 MLS/HR Al Hydroxide/Mg Hydroxide (Mylanta Plus Xs) 30 ml PRN DAILY PRN 07/02/18 15:45 Albuterol Sulfate (Ventolin Neb Soln) 2.5 mg PRN Q4HRS PRN 07/02/18 15:45 Amino Acids/ Glycerin/ Electrolytes 1,000 ml @ 80 mls/hr [id number] 07/03/18 19:15 07/24/18 04:23 80 MLS/HR Ampicillin Sodium 2 gm/Sodium Chloride 100 ml @ 200 mls/hr Q4HRS 07/03/18 16:00 07/04/18 18:56 DC 07/04/18 16:24 200 MLS/HR Aspirin (Children'S Aspirin) 81 mg DAILY 07/03/18 09:00 07/23/18 09:13 81 MG Barium Sulfate (Varibar Thin Liquid Apple) 148 gm 1X ONCE 07/16/18 14:00 07/16/18 14:01 DC Carbamazepine (TEGretol) 200 mg BID 07/07/18 21:00 07/23/18 21:04 200 MG Cefepime HCl (Maxipime) 1 gm Q8HRS 07/04/18 22:00 07/08/18 09:20 DC 07/08/18 05:47 1 GM Ceftriaxone Sodium (Rocephin) 2 gm Q24H 07/08/18 10:00 07/09/18 11:51 DC 07/09/18 08:02 2 GM Clonidine HCl (Catapres) 0.1 mg PRN Q6HRS PRN 07/02/18 15:45 Diphenhydramine HCl (Benadryl) 25 mg PRN Q4HRS PRN 07/02/18 15:45 07/20/18 21:20 25 MG Divalproex Sodium (Depakote) 500 mg BID 07/03/18 21:00 07/04/18 16:20 DC Docusate Sodium (Colace) 100 mg PRN BID PRN 07/02/18 15:45 07/21/18 09:53 100 MG Enoxaparin Sodium (Lovenox 40mg Syringe) 40 mg DAILY 07/03/18 09:00 07/23/18 09:13 40 MG Guaifenesin (Robitussin) 200 mg PRN Q4HRS PRN 07/02/18 15:45 Haloperidol Lactate (Haldol Inj) 5 mg PRN Q6HRS PRN 07/19/18 21:15 07/21/18 02:58 5 MG Hydralazine HCl (Apresoline Inj) 10 mg PRN Q4HRS PRN 07/02/18 16:45 07/20/18 02:45 10 MG Info (CONTRAST GIVEN -- Rx MONITORING) 1 each PRN DAILY PRN 07/05/18 11:30 07/07/18 11:29 DC Iohexol (Omnipaque 350 Mg/ml) 75 ml 1X ONCE 07/05/18 11:15 07/05/18 11:16 DC 07/05/18 11:45 75 ML Lactobacillus Rhamnosus (Culturelle) 1 cap BID 07/04/18 21:00 07/23/18 21:04 1 CAP Levetiracetam 500 mg/Dextrose 105 ml @ 420 mls/hr Q12HR 07/03/18 21:00 07/07/18 11:46 DC 07/07/18 09:55 420 MLS/HR Levetiracetam 750 mg/Dextrose 107.5 ml @ 420 mls/hr Q12HR 07/02/18 16:30 07/03/18 14:17 DC 07/03/18 09:35 420 MLS/HR Lorazepam (Ativan) 2 mg PRN Q4HRS PRN 07/02/18 18:30 Cancel Nitroglycerin (Nitro-Bid Oint) 0.5 inch Q6HRS 07/02/18 17:30 07/24/18 06:06 0.5 INCH Non-Formulary Medication 1 ea QID 07/11/18 21:00 07/14/18 15:35 DC 07/13/18 20:04 1 EA Ondansetron HCl (Zofran) 4 mg PRN Q4HRS PRN 07/02/18 15:45 Penicillin G Potassium [id number] unit/Dextrose 100 ml @ 100 mls/hr Q4HRS 07/09/18 12:00 07/21/18 23:59 DC 07/21/18 20:47 100 MLS/HR Probenecid (Benemid) 500 mg QID 07/14/18 17:00 07/20/18 13:00 DC 07/20/18 08:25 500 MG Sodium Monofluorophosphate (Fleet Adult) 133 ml PRN DAILY PRN 07/02/18 15:45 07/23/18 17:54 133 ML Sodium Chloride 1,000 ml @ 100 mls/hr Q10H 07/02/18 16:30 07/04/18 16:37 DC 07/02/18 16:04 100 MLS/HR Sodium Chloride (Normal Saline Flush 3ml) 3 ml QSHIFT PRN 07/02/18 15:45 07/16/18 07:35 3 ML Valproic Acid 500 mg/Dextrose 55 ml @ 55 mls/hr Q8HRS 07/04/18 17:00 07/10/18 12:12 DC 07/10/18 06:05 55 MLS/HR Vancomycin HCl (Vanco Per Pharmacy) 1 each PRN DAILY PRN 07/03/18 14:15 07/04/18 18:56 DC 07/04/18 12:31 1 EACH Vancomycin HCl (Vancomycin Trough Level) 1 each 1X ONCE 07/05/18 05:30 07/05/18 05:31 Cancel Vancomycin HCl 1.5 gm/Sodium Chloride 500 ml @ 250 mls/hr 1X ONCE 07/03/18 15:00 07/03/18 16:59 DC 07/03/18 17:54 250 MLS/HR Vancomycin HCl 1 gm/Sodium Chloride 250 ml @ 250 mls/hr Q12H 07/04/18 06:00 07/04/18 18:58 DC 07/04/18 18:45 250 MLS/HR Zolpidem Tartrate (Ambien) 5 mg PRN QHS PRN 07/02/18 15:45 07/20/18 20:58 5 MG Objective: Assessment: 1. Encephalopathy, Etiology unclear likely metabolic though pt is not able to give any history, no family at bedside. Unable to obtain MRI as the patient has metallic fragments in the floor of the left maxillary sinus. minimal improvement 2. Status epilepticus. on keppra, Complex focal seizures on 07/02/2016. 3. Neurosyphilis treated with IV PCN for 14 days 4. Hypertensive encephalopathy. 5. Disorientation,Confusion. 6. HIV negative, Acute hepatitis panel neg 7. History of incarceration more than 20 years ago. 8. Diabetes. 9. Peripheral vascular disease. 10. Smoking. 11. Left nephrectomy. 12. Peripheral arterial disease. 13. Gastroesophageal reflux disease. 14. Aspiration Pneumonitis 15. Tremors ? etiology could be from noninfectious etiology,resolved Plan: Plan of Care Pt completed 14 days of PCN through 07/21/2018 for neurosyphilis He will need a repeat CSF VDRL in 3 mos to 6 mos and VDRL should be nonreactive or will require retreatment Will need repeat TB spot in a few month Maintain aspiration precaution. awaiting placement Oral care pt should be DNR/DNI intermediate frame tender prognosis poor D/w nursing SHAI RAYO MD Jul 24, 2018 09:11
[2018-07-24] MEDS: LORazepam 0.5 MG TABLET PO PRN ×2 (09:23→20:33)
[2018-07-24] MEDS: LACTOBACILLUS RHAMNOSUS GG 1 CAPSULE. PO SCH ×2 (09:23→20:33)
[2018-07-24] MEDS: ENOXAPARIN 40 MG/0.4 ML SYRINGE. SQ SCH (09:23)
[2018-07-24] MEDS: ASPIRIN CHEWABLE 81 MG TABLET. PO SCH (09:23)
[2018-07-24] MEDS: carBAMazepine 200 MG TABLET PO SCH ×2 (09:23→20:33)
--- NOTE | 2018-07-24 10:34 | PDOC ---
PROGRESS NOTES Chief Complaint Chief Complaint Complex focal seizure went status epilepticus on 07/02/16. 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 Diabetes 2 Peripheral vascular disease. Tobacco abuse. Left nephrectomy. Gastroesophageal reflux disease. Aspiration Pneumonitis Tremors (?), Age-related atrophy, and evidence of chronic small vessel disease SEVERE MALNUTRITION Difficult to arouse, noncommunicative, no seizure like activity/tremors History of Present Illness History of Present Illness no changes, intermittently confused ativan given overnight not start tube feeds as he can tolerate a regular diet when awake and alert Continue ProcalAmine for now electrolytes stable palliative care consulted continue supportive care PT consulted Has finished course of penicillin for neurosyphilis patient DNR and DNI awaiting conservatorship, sw consulted needs placement Vitals Vitals Vital Signs Date Time Temp Pulse Resp B/P (MAP) Pulse Ox O2 Delivery O2 Flow Rate FiO2 07/24/18 07:00 98.5 72 16 121/53 (75) 97 Room Air 98.5 Physical Exam Physical Exam GENERAL: Resting quietly, appears comfortable Difficult to arouse, noncommunicative, no seizure like activity/tremors HEENT: Pupils equally round reactive NECK: Supple. LUNGS: Clear HEART: S1 and S2. ABDOMEN: Soft, no grimace or guarding to palpation, BS present EXTREMITIES: No edema and no cyanosis. SKIN: Warm and dry. No generalized rash. 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, noncommunicative, no seizure like activity/tremors PICC RUE (07/09) General: Alert, No acute distress, Other (mumbling responses to question, easy to arrouse, left arm and hand fasiculations, pleasantly confused) Heart: Regular rate, Normal S1, Normal S2, No murmurs Lungs: Clear, Other (airway patent, normal respiratory effort, no crackles or wheezing) Abdomen: Normal bowel sounds, Soft, No tenderness, No hepatosplenomegaly, No masses, Other (no grimace or guarding to palpation) Extremities: No clubbing, No cyanosis, No edema, Other (Strong peripheral pulses 3+, PICC RUE C/D/I) Skin: No rashes, No breakdown, No significant lesion Assessment and Plan Assessmemt and Plan Problems Medical Problems: (1) Elevated troponin Status: Acute (2) Tremor Status: Acute Comment Review of Relevant I have reviewed the following items kendrick (where applicable) has been applied. Labs Microbiology 07/02/18 Blood Culture - Final, Complete NO GROWTH AFTER 5 DAYS 07/05/18 CSF Gram Stain - Final, Complete Medications Current Medications Sodium Chloride 1,000 ml @ 1,000 mls/hr 1X ONCE IV Last administered on at 10:00; Start 07/02/18 at 10:00; Stop 07/02/18 at 10:59; Status DC Lorazepam (Ativan) 0.5 mg 1X ONCE IV Last administered on 07/02/18at 12:12; Start 07/02/18 at 12:30; Stop 07/02/18 at 12:31; Status DC Aspirin (Children'S Aspirin) 324 mg 1X ONCE PO Last administered on 07/02/18at 13:18; Start 07/02/18 at 13:30; Stop 07/02/18 at 13:31; Status DC Acetaminophen (Tylenol) 650 mg PRN Q4HRS PRN PO FEVER; Start 07/02/18 at 14:30 ; Stop 07/02/18 at 18:38; Status DC Lorazepam (Ativan) 2 mg PRN Q4HRS PRN IV ANXIETY/AGITATION/ETOH WITHDRL Last administered on 07/24/18at 02:18; Start 07/02/18 at 15:30 Levetiracetam 750 mg/Dextrose 107.5 ml @ 420 mls/hr Q12HR IV Last administered on 07/03/18at 09:35; Start 07/02/18 at 16:30; Stop 07/03/18 at 14:17 ; Status DC Sodium Chloride (Normal Saline Flush 3ml) 3 ml QSHIFT PRN IV AFTER MEDS AND BLOOD DRAWS Last administered on 07/16/18at 07:35; Start 07/02/18 at 15:45 Sodium Chloride 1,000 ml @ 100 mls/hr Q10H IV Last administered on 07/02/18at 16:04; Start 07/02/18 at 16:30; Stop 07/04/18 at 16:37; Status DC Ondansetron HCl (Zofran) 4 mg PRN Q4HRS PRN IV NAUSEA/VOMITING; Start 07/02/18 at 15:45 Zolpidem Tartrate (Ambien) 5 mg PRN QHS PRN PO INSOMNIA Last administered on 20:58; Start 07/02/18 at 15:45 Acetaminophen (Tylenol) 650 mg PRN Q4HRS PRN PO TEMP OVER 100.4F OR MILD PAIN Last administered on 07/21/18 20:47; Start 07/02/18 at 15:45 Al Hydroxide/Mg Hydroxide (Mylanta Plus Xs) 30 ml PRN DAILY PRN PO HEARTBURN / GAS; Start 07/02/18 at 15:45 Clonidine HCl (Catapres) 0.1 mg PRN Q6HRS PRN PO SBP>160 OR DBP>90; Start 07/02 at 15:45 Sodium Monofluorophosphate (Fleet Adult) 133 ml PRN DAILY PRN PA CONSTIPATION Last administered on 07/23/18 17:54; Start 07/02/18 at 15:45 Diphenhydramine HCl (Benadryl) 25 mg PRN Q4HRS PRN IVP ITCHING Last administered on 07/20/18 21:20; Start 07/02/18 at 15:45 Docusate Sodium (Colace) 100 mg PRN BID PRN PO CONSTIPATION Last administered on 07/21/18 09:53; Start 07/02/18 at 15:45 Albuterol Sulfate (Ventolin Neb Soln) 2.5 mg PRN Q4HRS PRN NEB SHORTNESS OF BREATH; Start 07/02/18 at 15:45 Guaifenesin (Robitussin) 200 mg PRN Q4HRS PRN PO COUGH; Start 07/02/18 at 15:45 Lorazepam (Ativan) 0.5 mg PRN Q4HRS PRN PO ANXIETY / AGITATION Last administered on 07/24/18 09:23; Start 07/02/18 at 15:45 Enoxaparin Sodium (Lovenox 40mg Syringe) 40 mg DAILY SQ Last administered on 09:23; Start 07/03/18 at 09:00 Hydralazine HCl (Apresoline Inj) 10 mg PRN Q4HRS PRN IVP ELEVATED BP, SEE COMMENTS Last administered on 4/13/19at 02:45; Start 07/02/18 at 16:45 Nitroglycerin (Nitro-Bid Oint) 0.5 inch Q6HRS TP Last administered on at 06:06; Start 07/02/18 at 17:30 Aspirin (Children'S Aspirin) 81 mg DAILY PO Last administered on 07/24/18at 09: 23; Start 07/03/18 at 09:00 Lorazepam (Ativan) 2 mg PRN Q4HRS PRN IV ALCOHOL WITHDRAWAL; Start 07/02/18 at 18:30; Status Cancel Cefepime HCl (Maxipime) 2 gm Q8HRS IVP Last administered on 07/04/18at 14:00; Start 07/03/18 at 14:30; Stop 07/04/18 at 18:56; Status DC Acyclovir Sodium 730 mg/Dextrose 264.6 ml @ 264.6 mls/ hr Q8HRS IV Last administered on 07/04/18at 05:07; Start 07/03/18 at 15:00; Stop 07/04/18 at 12:26 ; Status DC Vancomycin HCl (Vanco Per Pharmacy) 1 each PRN DAILY PRN MC SEE COMMENTS Last administered on 07/04/18at 12:31; Start 07/03/18 at 14:15; Stop 07/04/18 at 18:56 ; Status DC Ampicillin Sodium 2 gm/Sodium Chloride 100 ml @ 200 mls/hr Q4HRS IV Last administered on 07/04/18at 16:24; Start 07/03/18 at 16:00; Stop 07/04/18 at 18:56 ; Status DC Vancomycin HCl 1.5 gm/Sodium Chloride 500 ml @ 250 mls/hr 1X ONCE IV Last administered on 07/03/18at 17:54; Start 07/03/18 at 15:00; Stop 07/03/18 at 16:59 ; Status DC Levetiracetam 500 mg/Dextrose 105 ml @ 420 mls/hr Q12HR IV Last administered on 07/07/18at 09:55; Start 07/03/18 at 21:00; Stop 07/07/18 at 11:46; Status DC Divalproex Sodium (Depakote) 500 mg BID PO ; Start 07/03/18 at 21:00; Stop 07/04 at 16:20; Status DC Vancomycin HCl 1 gm/Sodium Chloride 250 ml @ 250 mls/hr Q12H IV Last administered on 07/04/18at 18:45; Start 07/04/18 at 06:00; Stop 07/04/18 at 18:58 ; Status DC Vancomycin HCl (Vancomycin Trough Level) 1 each 1X ONCE MC ; Start 07/05/18 at 05:30; Stop 07/05/18 at 05:31; Status Cancel Amino Acids/ Glycerin/ Electrolytes 1,000 ml @ 80 mls/hr [id number] IV Last administered on 07/24/18at 04:23; Start 07/03/18 at 19:15 Acyclovir Sodium 620 mg/Dextrose 262.4 ml @ 262.4 mls/ hr Q8HRS IV Last administered on 07/05/18at 05:05; Start 07/04/18 at 14:00; Stop 07/05/18 at 13:59 ; Status DC Lactobacillus Rhamnosus (Culturelle) 1 cap BID PO Last administered on at 09:23; Start 07/04/18 at 21:00 Valproic Acid 500 mg/Dextrose 55 ml @ 55 mls/hr Q8HRS IV Last administered on at 06:05; Start 07/04/18 at 17:00; Stop 07/10/18 at 12:12; Status DC Acyclovir Sodium 620 mg/Dextrose 112.4 ml @ 112.4 mls/ hr Q8HRS IV Last administered on 07/06/18at 05:19; Start 07/05/18 at 14:00; Stop 07/06/18 at 13:52 ; Status DC Cefepime HCl (Maxipime) 1 gm Q8HRS IVP Last administered on 07/08/18at 05:47; Start 07/04/18 at 22:00; Stop 07/08/18 at 09:20; Status DC Iohexol (Omnipaque 350 Mg/ml) 75 ml 1X ONCE IV Last administered on 07/05/18at 11:45; Start 07/05/18 at 11:15; Stop 07/05/18 at 11:16; Status DC Info (CONTRAST GIVEN -- Rx MONITORING) 1 each PRN DAILY PRN MC SEE COMMENTS; Start 07/05/18 at 11:30; Stop 07/07/18 at 11:29; Status DC Carbamazepine (TEGretol) 200 mg BID PO Last administered on 07/24/18 09:23; Start 07/07/18 at 21:00 Ceftriaxone Sodium (Rocephin) 2 gm Q24H IVP Last administered on 07/09/18 08:02 ; Start 07/08/18 at 10:00; Stop 07/09/18 at 11:51; Status DC Penicillin G Potassium 5305946 unit/Dextrose 100 ml @ 100 mls/hr Q4HRS IV Last administered on 07/21/18at 20:47; Start 07/09/18 at 12:00; Stop 07/21/18 at 23:59; Status DC Barium Sulfate (Varibar Thin Liquid Apple) 148 gm 1X ONCE PO Last administered on 07/09/18 13:53; Start 07/09/18 at 13:00; Stop 07/09/18 at 13:01; Status DC Non-Formulary Medication 1 ea QID PO Last administered on 07/13/18at 20:04; Start 07/11/18 at 21:00; Stop 07/14/18 at 15:35; Status DC Probenecid (Benemid) 500 mg QID PO Last administered on 07/20/18 08:25; Start 07/14/18 at 17:00; Stop 07/20/18 at 13:00; Status DC Barium Sulfate (Varibar Thin Liquid Apple) 148 gm 1X ONCE PO ; Start 07/16/18 at 14:00; Stop 07/16/18 at 14:01; Status DC Haloperidol Lactate (Haldol Inj) 5 mg PRN Q6HRS PRN IVP AGITATION 2ND CHOICE Last administered on 07/21/18at 02:58; Start 07/19/18 at 21:15 Active Scripts Active Reported Zithromax (Azithromycin) 500 Mg Tablet 1 Tab PO DAILY Aspirin 81 Mg Tab.chew 81 Mg PO DAILY Hydrocodone-Apap 5-325 (Hydrocodone Bit/Acetaminophen) 1 Tab Tablet 1 Tab PO PRN Q6HRS PRN Vitals/I & O Vital Sign - Last 24 Hours 07/23/18 07/23/18 07/23/18 07/23/18 10:52 11:20 15:11 17:40 Temp 97.7 97.1 97.7 97.1 Pulse 76 76 66 78 Resp 18 20 B/P (MAP) 127/56 (79) 127/56 130/64 (86) 143/68 Pulse Ox 96 97 O2 Delivery Room Air Room Air 07/23/18 07/23/18 07/23/18 07/23/18 19:00 19:51 23:00 23:33 Temp 97.9 97.9 97.9 97.9 Pulse 81 76 76 Resp 20 20 B/P (MAP) 102/69 (80) 153/64 (93) 153/64 Pulse Ox 96 100 O2 Delivery Room Air Room Air Room Air 07/24/18 07/24/18 07/24/18 03:00 06:06 07:00 Temp 98.4 98.5 98.4 98.5 Pulse 89 89 72 Resp 18 16 B/P (MAP) 169/68 (101) 169/68 121/53 (75) Pulse Ox 97 97 O2 Delivery Room Air Room Air Intake and Output 07/23/18 07/23/18 07/24/18 14:59 22:59 06:59 Intake Total 1000 ml 280 ml Balance 1000 ml 280 ml Nutrition Consultation Dietary Evaluation: Recommendations by RD: Increase Calorie Intake, Protein supplementation Comments: PPN day 20- rec d/c. 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
[2018-07-24 11:00] VITALS: BP 130/58
--- NOTE | 2018-07-24 11:00 | NUR ---
Attempted to reach Chelsie again via phone but voice mail is full. Discussed with RN regarding pt's code status.
--- NOTE | 2018-07-24 14:26 | PDOC2 ---
PALLIATIVE CARE Palliative Care Note Palliative Care Patient seen at 0930. Drowsy but arouses easily to name. Unable to understand attempt to verbalize. Spoke with Adilene NICK who is assisting with plans. Per Notes, [employer]--girl friend came late last evening. Had to leave and did not return. Patient has not had BM since 07/12. Fleets enema given last evening with no results. Raven RN will request laxative. Would consider trying to manage symptoms--agitation with po medications --scheduled. DNR/DNI has been recommended. Will need physician order. ISACC LR Jul 24, 2018 14:26
[2018-07-24 15:00] VITALS: BP 187/73
[2018-07-24 19:00] VITALS: BP 165/72
[2018-07-24 23:00] VITALS: BP 173/69
[2018-07-25] MEDS: NITROGLYCERIN OINT 1 GM PACKET. TP SCH ×4 (00:06→18:19)
[2018-07-25 03:00] VITALS: BP 128/65
[2018-07-25] MEDS: AMINO AC 3%/ELECTROLYTE/GLYCER 1,000 ML IV SCH ×2 (05:31→18:17)
[2018-07-25 07:00] VITALS: BP 140/67
[2018-07-25] MEDS: LACTOBACILLUS RHAMNOSUS GG 1 CAPSULE. PO SCH ×2 (09:17→20:55)
[2018-07-25] MEDS: ASPIRIN CHEWABLE 81 MG TABLET. PO SCH (09:17)
[2018-07-25] MEDS: carBAMazepine 200 MG TABLET PO SCH ×2 (09:17→20:55)
[2018-07-25] MEDS: LORazepam 0.5 MG TABLET PO PRN ×2 (09:17→20:55)
[2018-07-25] MEDS: ENOXAPARIN 40 MG/0.4 ML SYRINGE. SQ SCH (09:34)
[2018-07-25 11:00] VITALS: BP 127/55
--- NOTE | 2018-07-25 11:25 | PDOC ---
PROGRESS NOTES Chief Complaint Chief Complaint Complex focal seizure went status epilepticus on 07/02/16. 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 Diabetes 2 Peripheral vascular disease. Tobacco abuse. Left nephrectomy. Gastroesophageal reflux disease. Aspiration Pneumonitis Tremors (?), Age-related atrophy, and evidence of chronic small vessel disease SEVERE MALNUTRITION Difficult to arouse, noncommunicative, no seizure like activity/tremors History of Present Illness History of Present Illness no changes, intermittently confused ativan given overnight not start tube feeds as he can tolerate a regular diet when awake and alert Continue ProcalAmine for now electrolytes stable palliative care consulted continue supportive care PT consulted Has finished course of penicillin for neurosyphilis patient DNR and DNI awaiting conservatorship, sw consulted needs placement Vitals Vitals Vital Signs Date Time Temp Pulse Resp B/P (MAP) Pulse Ox O2 Delivery O2 Flow Rate FiO2 07/25/18 11:00 98.4 65 16 127/55 (79) 100 98.4 07/25/18 03:00 Room Air Physical Exam Physical Exam GENERAL: Resting quietly, appears comfortable Difficult to arouse, noncommunicative, no seizure like activity/tremors HEENT: Pupils equally round reactive NECK: Supple. LUNGS: Clear HEART: S1 and S2. ABDOMEN: Soft, no grimace or guarding to palpation, BS present EXTREMITIES: No edema and no cyanosis. SKIN: Warm and dry. No generalized rash. 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: Difficult to arouse, noncommunicative, no seizure like activity/tremors PICC RUE (07/09) General: Alert, No acute distress, Other (mumbling responses to question, easy to arrouse, left arm and hand fasiculations, pleasantly confused) Heart: Regular rate, Normal S1, Normal S2, No murmurs Lungs: Clear, Other (airway patent, normal respiratory effort, no crackles or wheezing) Abdomen: Normal bowel sounds, Soft, No tenderness, No hepatosplenomegaly, No masses, Other (no grimace or guarding to palpation) Extremities: No clubbing, No cyanosis, No edema, Other (Strong peripheral pulses 3+, PICC RUE C/D/I) Skin: No rashes, No breakdown, No significant lesion Assessment and Plan Assessmemt and Plan Problems Medical Problems: (1) Elevated troponin Status: Acute (2) Tremor Status: Acute Comment Review of Relevant I have reviewed the following items kendrick (where applicable) has been applied. Labs Microbiology 07/02/18 Blood Culture - Final, Complete NO GROWTH AFTER 5 DAYS 07/05/18 CSF Gram Stain - Final, Complete Medications Current Medications Sodium Chloride 1,000 ml @ 1,000 mls/hr 1X ONCE IV Last administered on at 10:00; Start 07/02/18 at 10:00; Stop 07/02/18 at 10:59; Status DC Lorazepam (Ativan) 0.5 mg 1X ONCE IV Last administered on 07/02/18at 12:12; Start 07/02/18 at 12:30; Stop 07/02/18 at 12:31; Status DC Aspirin (Children'S Aspirin) 324 mg 1X ONCE PO Last administered on 07/02/18at 13:18; Start 07/02/18 at 13:30; Stop 07/02/18 at 13:31; Status DC Acetaminophen (Tylenol) 650 mg PRN Q4HRS PRN PO FEVER; Start 07/02/18 at 14:30 ; Stop 07/02/18 at 18:38; Status DC Lorazepam (Ativan) 2 mg PRN Q4HRS PRN IV ANXIETY/AGITATION/ETOH WITHDRL Last administered on 07/25/18at 04:06; Start 07/02/18 at 15:30 Levetiracetam 750 mg/Dextrose 107.5 ml @ 420 mls/hr Q12HR IV Last administered on 07/03/18at 09:35; Start 07/02/18 at 16:30; Stop 07/03/18 at 14:17 ; Status DC Sodium Chloride (Normal Saline Flush 3ml) 3 ml QSHIFT PRN IV AFTER MEDS AND BLOOD DRAWS Last administered on 07/16/18at 07:35; Start 07/02/18 at 15:45 Sodium Chloride 1,000 ml @ 100 mls/hr Q10H IV Last administered on 07/02/18at 16:04; Start 07/02/18 at 16:30; Stop 07/04/18 at 16:37; Status DC Ondansetron HCl (Zofran) 4 mg PRN Q4HRS PRN IV NAUSEA/VOMITING; Start 07/02/18 at 15:45 Zolpidem Tartrate (Ambien) 5 mg PRN QHS PRN PO INSOMNIA Last administered on 20:58; Start 07/02/18 at 15:45 Acetaminophen (Tylenol) 650 mg PRN Q4HRS PRN PO TEMP OVER 100.4F OR MILD PAIN Last administered on 07/21/18 20:47; Start 07/02/18 at 15:45 Al Hydroxide/Mg Hydroxide (Mylanta Plus Xs) 30 ml PRN DAILY PRN PO HEARTBURN / GAS; Start 07/02/18 at 15:45 Clonidine HCl (Catapres) 0.1 mg PRN Q6HRS PRN PO SBP>160 OR DBP>90; Start 07/02 at 15:45 Sodium Monofluorophosphate (Fleet Adult) 133 ml PRN DAILY PRN [place] CONSTIPATION Last administered on 07/23/18 17:54; Start 07/02/18 at 15:45 Diphenhydramine HCl (Benadryl) 25 mg PRN Q4HRS PRN IVP ITCHING Last administered on 07/20/18 21:20; Start 07/02/18 at 15:45 Docusate Sodium (Colace) 100 mg PRN BID PRN PO CONSTIPATION Last administered on 07/21/18 09:53; Start 07/02/18 at 15:45 Albuterol Sulfate (Ventolin Neb Soln) 2.5 mg PRN Q4HRS PRN NEB SHORTNESS OF BREATH; Start 07/02/18 at 15:45 Guaifenesin (Robitussin) 200 mg PRN Q4HRS PRN PO COUGH; Start 07/02/18 at 15:45 Lorazepam (Ativan) 0.5 mg PRN Q4HRS PRN PO ANXIETY / AGITATION Last administered on 07/25/18 09:17; Start 07/02/18 at 15:45 Enoxaparin Sodium (Lovenox 40mg Syringe) 40 mg DAILY SQ Last administered on 09:34; Start 07/03/18 at 09:00 Hydralazine HCl (Apresoline Inj) 10 mg PRN Q4HRS PRN IVP ELEVATED BP, SEE COMMENTS Last administered on 07/20/18at 02:45; Start 07/02/18 at 16:45 Nitroglycerin (Nitro-Bid Oint) 0.5 inch Q6HRS TP Last administered on at 05:33; Start 07/02/18 at 17:30 Aspirin (Children'S Aspirin) 81 mg DAILY PO Last administered on 07/25/18at 09: 17; Start 07/03/18 at 09:00 Lorazepam (Ativan) 2 mg PRN Q4HRS PRN IV ALCOHOL WITHDRAWAL; Start 07/02/18 at 18:30; Status Cancel Cefepime HCl (Maxipime) 2 gm Q8HRS IVP Last administered on 07/04/18at 14:00; Start 07/03/18 at 14:30; Stop 07/04/18 at 18:56; Status DC Acyclovir Sodium 730 mg/Dextrose 264.6 ml @ 264.6 mls/ hr Q8HRS IV Last administered on 07/04/18at 05:07; Start 07/03/18 at 15:00; Stop 07/04/18 at 12:26 ; Status DC Vancomycin HCl (Vanco Per Pharmacy) 1 each PRN DAILY PRN MC SEE COMMENTS Last administered on 07/04/18at 12:31; Start 07/03/18 at 14:15; Stop 07/04/18 at 18:56 ; Status DC Ampicillin Sodium 2 gm/Sodium Chloride 100 ml @ 200 mls/hr Q4HRS IV Last administered on 07/04/18at 16:24; Start 07/03/18 at 16:00; Stop 07/04/18 at 18:56 ; Status DC Vancomycin HCl 1.5 gm/Sodium Chloride 500 ml @ 250 mls/hr 1X ONCE IV Last administered on 07/03/18at 17:54; Start 07/03/18 at 15:00; Stop 07/03/18 at 16:59 ; Status DC Levetiracetam 500 mg/Dextrose 105 ml @ 420 mls/hr Q12HR IV Last administered on 07/07/18at 09:55; Start 07/03/18 at 21:00; Stop 07/07/18 at 11:46; Status DC Divalproex Sodium (Depakote) 500 mg BID PO ; Start 07/03/18 at 21:00; Stop 07/04 at 16:20; Status DC Vancomycin HCl 1 gm/Sodium Chloride 250 ml @ 250 mls/hr Q12H IV Last administered on 07/04/18at 18:45; Start 07/04/18 at 06:00; Stop 07/04/18 at 18:58 ; Status DC Vancomycin HCl (Vancomycin Trough Level) 1 each 1X ONCE MC ; Start 07/05/18 at 05:30; Stop 07/05/18 at 05:31; Status Cancel Amino Acids/ Glycerin/ Electrolytes 1,000 ml @ 80 mls/hr [id number] IV Last administered on 07/25/18at 05:31; Start 07/03/18 at 19:15 Acyclovir Sodium 620 mg/Dextrose 262.4 ml @ 262.4 mls/ hr Q8HRS IV Last administered on 07/05/18at 05:05; Start 07/04/18 at 14:00; Stop 07/05/18 at 13:59 ; Status DC Lactobacillus Rhamnosus (Culturelle) 1 cap BID PO Last administered on at 09:17; Start 07/04/18 at 21:00 Valproic Acid 500 mg/Dextrose 55 ml @ 55 mls/hr Q8HRS IV Last administered on at 06:05; Start 07/04/18 at 17:00; Stop 07/10/18 at 12:12; Status DC Acyclovir Sodium 620 mg/Dextrose 112.4 ml @ 112.4 mls/ hr Q8HRS IV Last administered on 07/06/18at 05:19; Start 07/05/18 at 14:00; Stop 07/06/18 at 13:52 ; Status DC Cefepime HCl (Maxipime) 1 gm Q8HRS IVP Last administered on 07/08/18at 05:47; Start 07/04/18 at 22:00; Stop 07/08/18 at 09:20; Status DC Iohexol (Omnipaque 350 Mg/ml) 75 ml 1X ONCE IV Last administered on 07/05/18at 11:45; Start 07/05/18 at 11:15; Stop 07/05/18 at 11:16; Status DC Info (CONTRAST GIVEN -- Rx MONITORING) 1 each PRN DAILY PRN MC SEE COMMENTS; Start 07/05/18 at 11:30; Stop 07/07/18 at 11:29; Status DC Carbamazepine (TEGretol) 200 mg BID PO Last administered on 07/25/18at 09:17; Start 07/07/18 at 21:00 Ceftriaxone Sodium (Rocephin) 2 gm Q24H IVP Last administered on 07/09/18 08:02 ; Start 07/08/18 at 10:00; Stop 07/09/18 at 11:51; Status DC Penicillin G Potassium [id number] unit/Dextrose 100 ml @ 100 mls/hr Q4HRS IV Last administered on 07/21/18at 20:47; Start 07/09/18 at 12:00; Stop 07/21/18 at 23:59; Status DC Barium Sulfate (Varibar Thin Liquid Apple) 148 gm 1X ONCE PO Last administered on 07/09/18 13:53; Start 07/09/18 at 13:00; Stop 07/09/18 at 13:01; Status DC Non-Formulary Medication 1 ea QID PO Last administered on 07/13/18at 20:04; Start 07/11/18 at 21:00; Stop 07/14/18 at 15:35; Status DC Probenecid (Benemid) 500 mg QID PO Last administered on 07/20/18at 08:25; Start 07/14/18 at 17:00; Stop 07/20/18 at 13:00; Status DC Barium Sulfate (Varibar Thin Liquid Apple) 148 gm 1X ONCE PO ; Start 07/16/18 at 14:00; Stop 07/16/18 at 14:01; Status DC Haloperidol Lactate (Haldol Inj) 5 mg PRN Q6HRS PRN IVP AGITATION 2ND CHOICE Last administered on 07/21/18at 02:58; Start 07/19/18 at 21:15 Active Scripts Active Reported Zithromax (Azithromycin) 500 Mg Tablet 1 Tab PO DAILY Aspirin 81 Mg Tab.chew 81 Mg PO DAILY Hydrocodone-Apap 5-325 (Hydrocodone Bit/Acetaminophen) 1 Tab Tablet 1 Tab PO PRN Q6HRS PRN Vitals/I & O Vital Sign - Last 24 Hours 07/24/18 07/24/18 07/24/18 07/24/18 12:39 15:00 18:29 19:00 Temp 98.6 98.3 98.6 98.3 Pulse 77 84 84 69 Resp 18 16 B/P (MAP) 130/58 187/73 (111) 187/73 165/72 (103) Pulse Ox 100 98 O2 Delivery Room Air Room Air 07/24/18 07/24/18 07/25/18 07/25/18 20:00 23:00 00:06 03:00 Temp 97.4 97.9 97.4 97.9 Pulse 79 79 76 Resp 18 17 B/P (MAP) 173/69 (103) 173/69 128/65 (86) Pulse Ox 100 99 O2 Delivery Room Air Room Air Room Air 07/25/18 07/25/18 07/25/18 05:33 07:00 11:00 Temp 98.2 98.4 98.2 98.4 Pulse 76 76 65 Resp 18 16 B/P (MAP) 128/65 140/67 (91) 127/55 (79) Pulse Ox 98 100 Intake and Output 07/24/18 07/24/18 07/25/18 14:59 22:59 06:59 Intake Total 0 ml 60 ml 200 ml Balance 0 ml 60 ml 200 ml Nutrition Consultation Dietary Evaluation: Recommendations by RD: Increase Calorie Intake, Protein supplementation Comments: PPN day - rec d/c. continue diet per CONTENT PRODUCTION SPECIALIST w/ supplements- encourage po intake Recommend TF- dobhoff or PEG per palliative Expected Outcomes/Goals: New goal: TF initiation 07/11: to meet > 75% est nutr need via po intake- goal not met, d/c 07/25/18 Interpretation of weight loss: >7.5% in 3 months Malnutrition Findings: Weight Status: Appropriate LINDA ECHEVARRIA MD Jul 25, 2018 11:25
--- NOTE | 2018-07-25 11:47 | NUR ---
Pt's girlfriend, Chelsie, and her friend were here to visit this morning. Pt's girlfriend stated she wants to take pt home either today or tomorrow, tomorrow would be "better". While in the room, Tami from palliative care and Adilene from social work came in. They spoke in depth with the pt's girlfriend about pt's status and what the next step for him may be. Pt's girlfriend stated she had been up all night cleaning the house and getting it ready for pt to come home. She stated she was going to leave and get some rest, asked her to try to be available via telephone so Tami and Adilene can get ahold of her if needed. She stated she could be reached at the number she gave to Tami and Adilene this morning.
--- NOTE | 2018-07-25 14:31 | PDOC ---
PROGRESS NOTES Assessment Problems Medical Problems: (1) Elevated troponin Status: Acute (2) Tremor Status: Acute Complex focal seizure went into status epilepticus on 07/02/16. Metabolic encephalopathy. Hypertensive encephalopathy. Hypertensive emergency, BP 214/112 mmHg. HTN, poorly controlled. DM. PVD. Smoking. 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 Neurosyphilis. Plan Continue Tegretol 200 mg bid. Brain MRI not done due to metallic projects at the floor of the left maxillary sinus. Treat medical diseases. Has finished course of penicillin for neurosyphilis Awaiting placement, no insurance He is incompetent to manage his own affairs or make medical decisions or designate a power of estate planning attorney, he needs a state-appointed guardian Subjective Denies pain Objective Vital Signs Date Time Temp Pulse Resp B/P (MAP) Pulse Ox O2 Delivery O2 Flow Rate FiO2 07/25/18 12:32 65 127/55 07/25/18 11:00 98.4 16 100 98.4 07/25/18 08:00 Room Air Intake and Output 07/25/18 07:00 Intake Total 260 ml Balance 260 ml Intake Oral 260 ml # Voids 12 PHYSICAL EXAM Sleepy, arouses easily, knows name but not date or location PERRL. EOMI. CN: no focal findings. Muscle tone: normal. Muscle strength: 3/5 DTR: 2+ Plantar reflex: flexor Gait: not examined in bed. Sensory exam: no abnormal findings. No cerebellar signs elicited. No myoclonus or chorea noted Review of Relevant I have reviewed the following items kendrick (where applicable) has been applied. Labs Microbiology 07/02/18 Blood Culture - Final, Complete NO GROWTH AFTER 5 DAYS 07/05/18 CSF Gram Stain - Final, Complete Medications Current Medications Sodium Chloride 1,000 ml @ 1,000 mls/hr 1X ONCE IV Last administered on at 10:00; Start 07/02/18 at 10:00; Stop 07/02/18 at 10:59; Status DC Lorazepam (Ativan) 0.5 mg 1X ONCE IV Last administered on 07/02/18at 12:12; Start 07/02/18 at 12:30; Stop 07/02/18 at 12:31; Status DC Aspirin (Children'S Aspirin) 324 mg 1X ONCE PO Last administered on 07/02/18at 13:18; Start 07/02/18 at 13:30; Stop 07/02/18 at 13:31; Status DC Acetaminophen (Tylenol) 650 mg PRN Q4HRS PRN PO FEVER; Start 07/02/18 at 14:30 ; Stop 07/02/18 at 18:38; Status DC Lorazepam (Ativan) 2 mg PRN Q4HRS PRN IV ANXIETY/AGITATION/ETOH WITHDRL Last administered on 07/25/18 04:06; Start 07/02/18 at 15:30 Levetiracetam 750 mg/Dextrose 107.5 ml @ 420 mls/hr Q12HR IV Last administered on 07/03/18 09:35; Start 07/02/18 at 16:30; Stop 07/03/18 at 14:17 ; Status DC Sodium Chloride (Normal Saline Flush 3ml) 3 ml QSHIFT PRN IV AFTER MEDS AND BLOOD DRAWS Last administered on 07/16/18 07:35; Start 07/02/18 at 15:45 Sodium Chloride 1,000 ml @ 100 mls/hr Q10H IV Last administered on 07/02/18 16:04; Start 07/02/18 at 16:30; Stop 07/04/18 at 16:37; Status DC Ondansetron HCl (Zofran) 4 mg PRN Q4HRS PRN IV NAUSEA/VOMITING; Start 07/02/18 at 15:45 Zolpidem Tartrate (Ambien) 5 mg PRN QHS PRN PO INSOMNIA Last administered on 20:58; Start 07/02/18 at 15:45 Acetaminophen (Tylenol) 650 mg PRN Q4HRS PRN PO TEMP OVER 100.4F OR MILD PAIN Last administered on 07/21/18 20:47; Start 07/02/18 at 15:45 Al Hydroxide/Mg Hydroxide (Mylanta Plus Xs) 30 ml PRN DAILY PRN PO HEARTBURN / GAS; Start 07/02/18 at 15:45 Clonidine HCl (Catapres) 0.1 mg PRN Q6HRS PRN PO SBP>160 OR DBP>90; Start 07/02 at 15:45 Sodium Monofluorophosphate (Fleet Adult) 133 ml PRN DAILY PRN [place] CONSTIPATION Last administered on 07/23/18 17:54; Start 07/02/18 at 15:45 Diphenhydramine HCl (Benadryl) 25 mg PRN Q4HRS PRN IVP ITCHING Last administered on 07/20/18 21:20; Start 07/02/18 at 15:45 Docusate Sodium (Colace) 100 mg PRN BID PRN PO CONSTIPATION Last administered on 07/21/18 09:53; Start 07/02/18 at 15:45 Albuterol Sulfate (Ventolin Neb Soln) 2.5 mg PRN Q4HRS PRN NEB SHORTNESS OF BREATH; Start 07/02/18 at 15:45 Guaifenesin (Robitussin) 200 mg PRN Q4HRS PRN PO COUGH; Start 07/02/18 at 15:45 Lorazepam (Ativan) 0.5 mg PRN Q4HRS PRN PO ANXIETY / AGITATION Last administered on 07/25/18 09:17; Start 07/02/18 at 15:45 Enoxaparin Sodium (Lovenox 40mg Syringe) 40 mg DAILY SQ Last administered on 09:34; Start 07/03/18 at 09:00 Hydralazine HCl (Apresoline Inj) 10 mg PRN Q4HRS PRN IVP ELEVATED BP, SEE COMMENTS Last administered on 07/20/18 02:45; Start 07/02/18 at 16:45 Nitroglycerin (Nitro-Bid Oint) 0.5 inch Q6HRS TP Last administered on 12:32; Start 07/02/18 at 17:30 Aspirin (Children'S Aspirin) 81 mg DAILY PO Last administered on 07/25/18 09: 17; Start 07/03/18 at 09:00 Lorazepam (Ativan) 2 mg PRN Q4HRS PRN IV ALCOHOL WITHDRAWAL; Start 07/02/18 at 18:30; Status Cancel Cefepime HCl (Maxipime) 2 gm Q8HRS IVP Last administered on 07/04/18 14:00; Start 07/03/18 at 14:30; Stop 07/04/18 at 18:56; Status DC Acyclovir Sodium 730 mg/Dextrose 264.6 ml @ 264.6 mls/ hr Q8HRS IV Last administered on 07/04/18at 05:07; Start 07/03/18 at 15:00; Stop 07/04/18 at 12:26 ; Status DC Vancomycin HCl (Vanco Per Pharmacy) 1 each PRN DAILY PRN MC SEE COMMENTS Last administered on 07/04/18at 12:31; Start 07/03/18 at 14:15; Stop 07/04/18 at 18:56 ; Status DC Ampicillin Sodium 2 gm/Sodium Chloride 100 ml @ 200 mls/hr Q4HRS IV Last administered on 07/04/18at 16:24; Start 07/03/18 at 16:00; Stop 07/04/18 at 18:56 ; Status DC Vancomycin HCl 1.5 gm/Sodium Chloride 500 ml @ 250 mls/hr 1X ONCE IV Last administered on 07/03/18at 17:54; Start 07/03/18 at 15:00; Stop 07/03/18 at 16:59 ; Status DC Levetiracetam 500 mg/Dextrose 105 ml @ 420 mls/hr Q12HR IV Last administered on 07/07/18at 09:55; Start 07/03/18 at 21:00; Stop 07/07/18 at 11:46; Status DC Divalproex Sodium (Depakote) 500 mg BID PO ; Start 07/03/18 at 21:00; Stop 07/04 at 16:20; Status DC Vancomycin HCl 1 gm/Sodium Chloride 250 ml @ 250 mls/hr Q12H IV Last administered on 07/04/18at 18:45; Start 07/04/18 at 06:00; Stop 07/04/18 at 18:58 ; Status DC Vancomycin HCl (Vancomycin Trough Level) 1 each 1X ONCE MC ; Start 07/05/18 at 05:30; Stop 07/05/18 at 05:31; Status Cancel Amino Acids/ Glycerin/ Electrolytes 1,000 ml @ 80 mls/hr [id number] IV Last administered on 07/25/18at 05:31; Start 07/03/18 at 19:15 Acyclovir Sodium 620 mg/Dextrose 262.4 ml @ 262.4 mls/ hr Q8HRS IV Last administered on 07/05/18at 05:05; Start 07/04/18 at 14:00; Stop 07/05/18 at 13:59 ; Status DC Lactobacillus Rhamnosus (Culturelle) 1 cap BID PO Last administered on 09:17; Start 07/04/18 at 21:00 Valproic Acid 500 mg/Dextrose 55 ml @ 55 mls/hr Q8HRS IV Last administered on 06:05; Start 07/04/18 at 17:00; Stop 07/10/18 at 12:12; Status DC Acyclovir Sodium 620 mg/Dextrose 112.4 ml @ 112.4 mls/ hr Q8HRS IV Last administered on 07/06/18 05:19; Start 07/05/18 at 14:00; Stop 07/06/18 at 13:52 ; Status DC Cefepime HCl (Maxipime) 1 gm Q8HRS IVP Last administered on 07/08/18 05:47; Start 07/04/18 at 22:00; Stop 07/08/18 at 09:20; Status DC Iohexol (Omnipaque 350 Mg/ml) 75 ml 1X ONCE IV Last administered on 07/05/18at 11:45; Start 07/05/18 at 11:15; Stop 07/05/18 at 11:16; Status DC Info (CONTRAST GIVEN -- Rx MONITORING) 1 each PRN DAILY PRN MC SEE COMMENTS; Start 07/05/18 at 11:30; Stop 07/07/18 at 11:29; Status DC Carbamazepine (TEGretol) 200 mg BID PO Last administered on 07/25/18 09:17; Start 07/07/18 at 21:00 Ceftriaxone Sodium (Rocephin) 2 gm Q24H IVP Last administered on 07/09/18at 08:02 ; Start 07/08/18 at 10:00; Stop 07/09/18 at 11:51; Status DC Penicillin G Potassium [id number] unit/Dextrose 100 ml @ 100 mls/hr Q4HRS IV Last administered on 07/21/18at 20:47; Start 07/09/18 at 12:00; Stop 07/21/18 at 23:59; Status DC Barium Sulfate (Varibar Thin Liquid Apple) 148 gm 1X ONCE PO Last administered on 07/09/18 13:53; Start 07/09/18 at 13:00; Stop 07/09/18 at 13:01; Status DC Non-Formulary Medication 1 ea QID PO Last administered on 07/13/18at 20:04; Start 07/11/18 at 21:00; Stop 07/14/18 at 15:35; Status DC Probenecid (Benemid) 500 mg QID PO Last administered on 07/20/18at 08:25; Start 07/14/18 at 17:00; Stop 07/20/18 at 13:00; Status DC Barium Sulfate (Varibar Thin Liquid Apple) 148 gm 1X ONCE PO ; Start 07/16/18 at 14:00; Stop 07/16/18 at 14:01; Status DC Haloperidol Lactate (Haldol Inj) 5 mg PRN Q6HRS PRN IVP AGITATION 2ND CHOICE Last administered on 07/21/18at 02:58; Start 07/19/18 at 21:15 Active Scripts Active Reported Zithromax (Azithromycin) 500 Mg Tablet 1 Tab PO DAILY Aspirin 81 Mg Tab.chew 81 Mg PO DAILY Hydrocodone-Apap 5-325 (Hydrocodone Bit/Acetaminophen) 1 Tab Tablet 1 Tab PO PRN Q6HRS PRN Vitals/I & O Vital Sign - Last 24 Hours 07/24/18 07/24/18 07/24/18 07/24/18 15:00 18:29 19:00 20:00 Temp 98.6 98.3 98.6 98.3 Pulse 84 84 69 Resp 18 16 B/P (MAP) 187/73 (111) 187/73 165/72 (103) Pulse Ox 100 98 O2 Delivery Room Air Room Air Room Air 07/24/18 07/25/18 07/25/18 07/25/18 23:00 00:06 03:00 05:33 Temp 97.4 97.9 97.4 97.9 Pulse 79 79 76 76 Resp 18 17 B/P (MAP) 173/69 (103) 173/69 128/65 (86) 128/65 Pulse Ox 100 99 O2 Delivery Room Air Room Air 07/25/18 07/25/18 07/25/18 07/25/18 07:00 08:00 08:00 11:00 Temp 98.2 98.4 98.2 98.4 Pulse 76 65 Resp 18 16 B/P (MAP) 140/67 (91) 127/55 (79) Pulse Ox 98 100 O2 Delivery Room Air Room Air 07/25/18 12:32 Pulse 65 B/P (MAP) 127/55 Intake and Output 07/24/18 07/24/18 07/25/18 15:00 23:00 07:00 Intake Total 0 ml 60 ml 200 ml Balance 0 ml 60 ml 200 ml MY OTT MD Jul 25, 2018 14:31
[2018-07-25 15:00] VITALS: BP 120/48
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
--- NOTE | 2018-07-25 17:10 | PDOC2 ---
PALLIATIVE CARE Palliative Care Note Palliative Care Met with Chelsie along with Adilene NICK and Chelsie's friend Romana Pulido ([phone]. Romana will assist Chelsie in communication since she lives close to her and Chelsie is having trouble with her phone. Informed Chelsie that patient will need 24/7 care and will likely need support of friends/family. Franck states that they have never talked about what Pat would want if he became seriously ill. Although she can't speak his language "they are able to communicate" Also states he would want DNR/DNI and she would want that for him. Copy of Social Security Care placed on medical record. Chelsie states all of his other important records are with his friend. Discussed nutrition. PPN will be stopped at discharge --patient is encouraged to drink supplements and eat puddings. Hospice Agencies will be contacted to assist with supplying care, DME and medications. Adilene NICK will assist with securing hospice agency. patient had received Ativan and was not interacting with Chelsie during this conversation. ISACC LR Jul 25, 2018 17:10
[2018-07-25 19:00] VITALS: BP 140/63
--- NOTE | 2018-07-25 21:01 | NUR ---
Attempted to administer medications, but pt refused by spitting out and then turning head. Already crushed 2100 meds plus 0.5 PO Ativan. Will dispose in med room waste.
[2018-07-25 23:00] VITALS: BP 152/58
[2018-07-25] MEDS: ZOLPIDEM 5 MG TABLET. PO PRN (23:00)
[2018-07-26] MEDS: NITROGLYCERIN OINT 1 GM PACKET. TP SCH ×4 (00:17→18:00)
[2018-07-26 03:05] VITALS: BP 139/66
--- NOTE | 2018-07-26 03:12 | NUR ---
Pt slid out of bed sounding bed alarm at 0300. Upon assessment, there were no visible injuries, and no complaints of pain. Charge nurse, warehouse associate driver and were notified. ordered neuro-checks q4HRS. No imaging necessary. Pt is at nurses station. Will continue to monitor.
[2018-07-26] MEDS: AMINO AC 3%/ELECTROLYTE/GLYCER 1,000 ML IV SCH ×2 (06:10→18:07)
[2018-07-26 07:00] VITALS: BP 105/55
[2018-07-26] MEDS: HALOPERIDOL LACTATE 5 MG/ML VIAL. IVP PRN ×2 (07:21→15:25)
[2018-07-26] MEDS: ASPIRIN CHEWABLE 81 MG TABLET. PO SCH (09:00)
[2018-07-26] MEDS: ENOXAPARIN 40 MG/0.4 ML SYRINGE. SQ SCH (09:00)
[2018-07-26] MEDS: carBAMazepine 200 MG TABLET PO SCH ×2 (09:00→21:38)
[2018-07-26] MEDS: LACTOBACILLUS RHAMNOSUS GG 1 CAPSULE. PO SCH ×2 (09:00→21:38)
--- NOTE | 2018-07-26 09:00 | NUR ---
Spoke with Leora at [facility] and she reported she will come visit pt today for bed side assessment. Requested Physician for Hospice eval and tx order. Spoke with Cheryl at hospice and provided more info as well. Will continue to follow.
--- NOTE | 2018-07-26 09:09 | NUR ---
Suggested by [place] Nursing Manufacturing Accountant to move patient back to a regular bed for safety purposes due to patient being very restless and the P500s being more "slippery" than the regular beds. Patient has no wounds and is able to move about in bed. Patient moved to regular bed. Patient resting comfortably.
--- NOTE | 2018-07-26 09:17 | PDOC ---
PROGRESS NOTES Chief Complaint Chief Complaint Complex focal seizure went status epilepticus on 07/02/16. 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 Diabetes 2 Peripheral vascular disease. Tobacco abuse. Left nephrectomy. Gastroesophageal reflux disease. Aspiration Pneumonitis Tremors (?), Age-related atrophy, and evidence of chronic small vessel disease SEVERE MALNUTRITION Difficult to arouse, noncommunicative, no seizure like activity/tremors History of Present Illness History of Present Illness no changes, intermittently confused ativan given overnight not start tube feeds as he can tolerate a regular diet when awake and alert Continue ProcalAmine for now electrolytes stable palliative care consulted continue supportive care PT consulted Has finished course of penicillin for neurosyphilis patient DNR and DNI awaiting conservatorship, sw consulted needs placement Vitals Vitals Vital Signs Date Time Temp Pulse Resp B/P (MAP) Pulse Ox O2 Delivery O2 Flow Rate FiO2 07/26/18 07:00 97.6 73 18 105/55 (72) 99 Room Air 97.6 Physical Exam Physical Exam GENERAL: Resting quietly, appears comfortable Difficult to arouse, noncommunicative, no seizure like activity/tremors HEENT: Pupils equally round reactive NECK: Supple. LUNGS: Clear HEART: S1 and S2. ABDOMEN: Soft, no grimace or guarding to palpation, BS present EXTREMITIES: No edema and no cyanosis. SKIN: Warm and dry. No generalized rash. 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 WASHER: Difficult to arouse,calm no seizure like activity/tremors PICC RUE (07/09) General: Alert, Cooperative, No acute distress, Other (mumbling responses to question, easy to arrouse, left arm and hand fasiculations, pleasantly confused) Heart: Regular rate, Normal S1, Normal S2, No murmurs Lungs: Clear, Other (airway patent, normal respiratory effort, no crackles or wheezing) Abdomen: Normal bowel sounds, Soft, No tenderness, No hepatosplenomegaly, No masses, Other (no grimace or guarding to palpation) Extremities: No clubbing, No cyanosis, No edema, Other (Strong peripheral pulses 3+, PICC RUE C/D/I) Skin: No rashes, No breakdown, No significant lesion Labs LABS SPEC #: [id number] SHAUNA: 07/04/18 STATUS: COMP REQ #: [id number] RECD: 07/05/[address] [facility] [address]: LINDA ECHEVARRIA MD SOURCE: CSF ENTR: 07/05/18 [facility] [address]: KAZ RAYO MD [facility]: HU STORY MD,NICOLÁS RIVAS UNKNOWN PCP NAME ORDERED: ANAER/AEROB/GS Procedure Result ANAEROBIC-AEROBIC CULTURE Final Final report ANAEROBIC RES 1 Final Comment No anaerobic growth in 72 hours. AEROBIC CULT Final Final report AEROBIC RES 1 Final Comment No growth in 56 - 72 hours. GRAM STAIN Final Final report GRAM STAIN RES 1 Final Comment No white blood cells seen. GRAM STAIN RES 2 Final No organisms seen Performed at: - [address], [place], [place] [id number] Printing Grey Cloth Tender: CARLOS Hoskins MD, Phone: [phone] END OF REPORT Assessment and Plan Assessmemt and Plan Problems Medical Problems: (1) Elevated troponin Status: Acute (2) Tremor Status: Acute Comment Review of Relevant I have reviewed the following items kendrick (where applicable) has been applied. Labs Microbiology 07/02/18 Blood Culture - Final, Complete NO GROWTH AFTER 5 DAYS 07/05/18 CSF Gram Stain - Final, Complete Medications Current Medications Sodium Chloride 1,000 ml @ 1,000 mls/hr 1X ONCE IV Last administered on at 10:00; Start 07/02/18 at 10:00; Stop 07/02/18 at 10:59; Status DC Lorazepam (Ativan) 0.5 mg 1X ONCE IV Last administered on 07/02/18at 12:12; Start 07/02/18 at 12:30; Stop 07/02/18 at 12:31; Status DC Aspirin (Children'S Aspirin) 324 mg 1X ONCE PO Last administered on 07/02/18at 13:18; Start 07/02/18 at 13:30; Stop 07/02/18 at 13:31; Status DC Acetaminophen (Tylenol) 650 mg PRN Q4HRS PRN PO FEVER; Start 07/02/18 at 14:30 ; Stop 07/02/18 at 18:38; Status DC Lorazepam (Ativan) 2 mg PRN Q4HRS PRN IV ANXIETY/AGITATION/ETOH WITHDRL Last administered on 07/26/18at 03:19; Start 07/02/18 at 15:30 Levetiracetam 750 mg/Dextrose 107.5 ml @ 420 mls/hr Q12HR IV Last administered on 07/03/18at 09:35; Start 07/02/18 at 16:30; Stop 07/03/18 at 14:17 ; Status DC Sodium Chloride (Normal Saline Flush 3ml) 3 ml QSHIFT PRN IV AFTER MEDS AND BLOOD DRAWS Last administered on 07/16/18at 07:35; Start 07/02/18 at 15:45 Sodium Chloride 1,000 ml @ 100 mls/hr Q10H IV Last administered on 07/02/18at 16:04; Start 07/02/18 at 16:30; Stop 07/04/18 at 16:37; Status DC Ondansetron HCl (Zofran) 4 mg PRN Q4HRS PRN IV NAUSEA/VOMITING; Start 07/02/18 at 15:45 Zolpidem Tartrate (Ambien) 5 mg PRN QHS PRN PO INSOMNIA Last administered on 23:00; Start 07/02/18 at 15:45 Acetaminophen (Tylenol) 650 mg PRN Q4HRS PRN PO TEMP OVER 100.4F OR MILD PAIN Last administered on 07/21/18 20:47; Start 07/02/18 at 15:45 Al Hydroxide/Mg Hydroxide (Mylanta Plus Xs) 30 ml PRN DAILY PRN PO HEARTBURN / GAS; Start 07/02/18 at 15:45 Clonidine HCl (Catapres) 0.1 mg PRN Q6HRS PRN PO SBP>160 OR DBP>90; Start 07/02 at 15:45 Sodium Monofluorophosphate (Fleet Adult) 133 ml PRN DAILY PRN LA CONSTIPATION Last administered on 07/23/18 17:54; Start 07/02/18 at 15:45 Diphenhydramine HCl (Benadryl) 25 mg PRN Q4HRS PRN IVP ITCHING Last administered on 07/20/18 21:20; Start 07/02/18 at 15:45 Docusate Sodium (Colace) 100 mg PRN BID PRN PO CONSTIPATION Last administered on 07/21/18 09:53; Start 07/02/18 at 15:45 Albuterol Sulfate (Ventolin Neb Soln) 2.5 mg PRN Q4HRS PRN NEB SHORTNESS OF BREATH; Start 07/02/18 at 15:45 Guaifenesin (Robitussin) 200 mg PRN Q4HRS PRN PO COUGH; Start 07/02/18 at 15:45 Lorazepam (Ativan) 0.5 mg PRN Q4HRS PRN PO ANXIETY / AGITATION Last administered on 07/25/18 09:17; Start 07/02/18 at 15:45 Enoxaparin Sodium (Lovenox 40mg Syringe) 40 mg DAILY SQ Last administered on 09:34; Start 07/03/18 at 09:00 Hydralazine HCl (Apresoline Inj) 10 mg PRN Q4HRS PRN IVP ELEVATED BP, SEE COMMENTS Last administered on 07/20/18 02:45; Start 07/02/18 at 16:45 Nitroglycerin (Nitro-Bid Oint) 0.5 inch Q6HRS TP Last administered on at 06:04; Start 07/02/18 at 17:30 Aspirin (Children'S Aspirin) 81 mg DAILY PO Last administered on 07/25/18at 09: 17; Start 07/03/18 at 09:00 Lorazepam (Ativan) 2 mg PRN Q4HRS PRN IV ALCOHOL WITHDRAWAL; Start 07/02/18 at 18:30; Status Cancel Cefepime HCl (Maxipime) 2 gm Q8HRS IVP Last administered on 07/04/18at 14:00; Start 07/03/18 at 14:30; Stop 07/04/18 at 18:56; Status DC Acyclovir Sodium 730 mg/Dextrose 264.6 ml @ 264.6 mls/ hr Q8HRS IV Last administered on 07/04/18at 05:07; Start 07/03/18 at 15:00; Stop 07/04/18 at 12:26 ; Status DC Vancomycin HCl (Vanco Per Pharmacy) 1 each PRN DAILY PRN MC SEE COMMENTS Last administered on 07/04/18at 12:31; Start 07/03/18 at 14:15; Stop 07/04/18 at 18:56 ; Status DC Ampicillin Sodium 2 gm/Sodium Chloride 100 ml @ 200 mls/hr Q4HRS IV Last administered on 07/04/18at 16:24; Start 07/03/18 at 16:00; Stop 07/04/18 at 18:56 ; Status DC Vancomycin HCl 1.5 gm/Sodium Chloride 500 ml @ 250 mls/hr 1X ONCE IV Last administered on 07/03/18at 17:54; Start 07/03/18 at 15:00; Stop 07/03/18 at 16:59 ; Status DC Levetiracetam 500 mg/Dextrose 105 ml @ 420 mls/hr Q12HR IV Last administered on 07/07/18at 09:55; Start 07/03/18 at 21:00; Stop 07/07/18 at 11:46; Status DC Divalproex Sodium (Depakote) 500 mg BID PO ; Start 07/03/18 at 21:00; Stop 07/04 at 16:20; Status DC Vancomycin HCl 1 gm/Sodium Chloride 250 ml @ 250 mls/hr Q12H IV Last administered on 07/04/18at 18:45; Start 07/04/18 at 06:00; Stop 07/04/18 at 18:58 ; Status DC Vancomycin HCl (Vancomycin Trough Level) 1 each 1X ONCE MC ; Start 07/05/18 at 05:30; Stop 07/05/18 at 05:31; Status Cancel Amino Acids/ Glycerin/ Electrolytes 1,000 ml @ 80 mls/hr [id number] IV Last administered on 07/26/18at 06:10; Start 07/03/18 at 19:15 Acyclovir Sodium 620 mg/Dextrose 262.4 ml @ 262.4 mls/ hr Q8HRS IV Last administered on 07/05/18at 05:05; Start 07/04/18 at 14:00; Stop 07/05/18 at 13:59 ; Status DC Lactobacillus Rhamnosus (Culturelle) 1 cap BID PO Last administered on at 09:17; Start 07/04/18 at 21:00 Valproic Acid 500 mg/Dextrose 55 ml @ 55 mls/hr Q8HRS IV Last administered on at 06:05; Start 07/04/18 at 17:00; Stop 07/10/18 at 12:12; Status DC Acyclovir Sodium 620 mg/Dextrose 112.4 ml @ 112.4 mls/ hr Q8HRS IV Last administered on 07/06/18at 05:19; Start 07/05/18 at 14:00; Stop 07/06/18 at 13:52 ; Status DC Cefepime HCl (Maxipime) 1 gm Q8HRS IVP Last administered on 07/08/18at 05:47; Start 07/04/18 at 22:00; Stop 07/08/18 at 09:20; Status DC Iohexol (Omnipaque 350 Mg/ml) 75 ml 1X ONCE IV Last administered on 07/05/18at 11:45; Start 07/05/18 at 11:15; Stop 07/05/18 at 11:16; Status DC Info (CONTRAST GIVEN -- Rx MONITORING) 1 each PRN DAILY PRN MC SEE COMMENTS; Start 07/05/18 at 11:30; Stop 07/07/18 at 11:29; Status DC Carbamazepine (TEGretol) 200 mg BID PO Last administered on 07/25/18 09:17; Start 07/07/18 at 21:00 Ceftriaxone Sodium (Rocephin) 2 gm Q24H IVP Last administered on 07/09/18 08:02 ; Start 07/08/18 at 10:00; Stop 07/09/18 at 11:51; Status DC Penicillin G Potassium [id number] unit/Dextrose 100 ml @ 100 mls/hr Q4HRS IV Last administered on 07/21/18 20:47; Start 07/09/18 at 12:00; Stop 07/21/18 at 23:59; Status DC Barium Sulfate (Varibar Thin Liquid Apple) 148 gm 1X ONCE PO Last administered on 07/09/18 13:53; Start 07/09/18 at 13:00; Stop 07/09/18 at 13:01; Status DC Non-Formulary Medication 1 ea QID PO Last administered on 07/13/18at 20:04; Start 07/11/18 at 21:00; Stop 07/14/18 at 15:35; Status DC Probenecid (Benemid) 500 mg QID PO Last administered on 07/20/18 08:25; Start 07/14/18 at 17:00; Stop 07/20/18 at 13:00; Status DC Barium Sulfate (Varibar Thin Liquid Apple) 148 gm 1X ONCE PO ; Start 07/16/18 at 14:00; Stop 07/16/18 at 14:01; Status DC Haloperidol Lactate (Haldol Inj) 5 mg PRN Q6HRS PRN IVP AGITATION 2ND CHOICE Last administered on 07/26/18 07:21; Start 07/19/18 at 21:15 Active Scripts Active Reported Zithromax (Azithromycin) 500 Mg Tablet 1 Tab PO DAILY Aspirin 81 Mg Tab.chew 81 Mg PO DAILY Hydrocodone-Apap 5-325 (Hydrocodone Bit/Acetaminophen) 1 Tab Tablet 1 Tab PO PRN Q6HRS PRN Vitals/I & O Vital Sign - Last 24 Hours 07/25/18 07/25/18 07/25/18 07/25/18 11:00 12:32 15:00 18:19 Temp 98.4 98.4 98.4 98.4 Pulse 65 65 56 56 Resp 16 16 B/P (MAP) 127/55 (79) 127/55 120/48 (72) 120/48 Pulse Ox 100 100 07/25/18 07/25/18 07/25/18 07/26/18 19:00 20:00 23:00 00:17 Temp 98.1 97.4 98.1 97.4 Pulse 67 69 71 Resp 18 18 B/P (MAP) 140/63 (88) 152/58 (89) 137/59 Pulse Ox 99 100 O2 Delivery Room Air Room Air Room Air 07/26/18 07/26/18 07/26/18 03:05 06:04 07:00 Temp 97.2 97.6 97.2 97.6 Pulse 73 64 73 Resp 18 18 B/P (MAP) 139/66 (90) 152/61 105/55 (72) Pulse Ox 99 O2 Delivery Room Air Room Air Intake and Output 07/25/18 07/25/18 07/26/18 14:59 22:59 06:59 Intake Total 0 ml 10 ml 80 ml Balance 0 ml 10 ml 80 ml Nutrition Consultation Dietary Evaluation: Recommendations by RD: Increase Calorie Intake, Protein supplementation Comments: PPN day - rec d/c. continue diet per [facility] w/ supplements- encourage po intake Recommend TF- dobhoff or PEG per palliative Expected Outcomes/Goals: New goal: TF initiation 07/11: to meet > 75% est nutr need via po intake- goal not met, d/c 07/25/18 Interpretation of weight loss: >7.5% in 3 months Malnutrition Findings: Weight Status: Appropriate LINDA ECHEVARRIA MD Jul 26, 2018 09:17
[2018-07-26 11:00] VITALS: BP 110/62
[2018-07-26 15:00] VITALS: BP 139/66
--- NOTE | 2018-07-26 15:26 | PDOC2 ---
PALLIATIVE CARE Palliative Care Note Palliative Care Patient lethargic. Has been medicated for agitation. Patient evaluated for Hospice by [facility]. Spoke with Jamie. They will be able to accept patient after guardianship established. Adilene NICK present during conversation as well. Adilene NICK and PC Spoke with Hospice. They can accept Hospice IP. Physician will need to sign consents. Zane Rothman Content Analyst informed. Will wait for Administration direction. ISACC LR Jul 26, 2018 15:26
--- NOTE | 2018-07-26 16:21 | NUR ---
SANDOVAL following pt. [facility] is able to provide [facility] hosp[facility] ([facility] at [facility]) but will need guardianship established. [facility] also have accepted pt and will provide [facility] hospice at [facility] as early as tomorrow without guardianship in place. Requirements to admit pt to [facility] are, .Physician to Physician report with Dr. Roberts, .Physician has to sign pt in to hospice ([facility] to fax documents to but still not received at this time). SW provided RN phone number to [facility]. The above things are needed to admit pt to [facility] without guardianship in place. Spoke with Mail Handler, Shanae Ramírez and they are working on finding a guardian at this time.
[2018-07-26] MEDS ORDERED: ALTEPLASE 1MG SYRINGE. INT CAT ONE (18:30)
[2018-07-26 19:00] VITALS: BP 133/52
--- NOTE | 2018-07-26 19:29 | NUR ---
[facility] hosp[facility] paperwork on chart, patient may possibly be accepted tomorrow if physician is comfortable signing hospice paperwork/consents. Passed on to shift boss RN, to be determined tomorrow if paperwork can be signed. Adilene NICK will continue to follow patient if he is still here on Sunday to assist with process if additional questions arise and paperwork cannot be signed this weekend.
--- NOTE | 2018-07-26 19:45 | NUR ---
Cath-oswaldo ineffective on line not connected to the ppn, continues to have flow to other line.
[2018-07-26] MEDS: ZOLPIDEM 5 MG TABLET. PO PRN (21:38)
[2018-07-26 23:00] VITALS: BP 127/52
[2018-07-27 03:00] VITALS: BP 139/80
[2018-07-27 06:17] LABS: BASO # 0.1 x10^3/uL (0.0-0.2); BASO % 2 % (0-3); EOS # 1.2 x10^3/uL (0.0-0.7); EOS % 23 % (0-3); HEMATOCRIT 26.8 % (39.0-53.0); HEMOGLOBIN 8.9 g/dL (13.0-17.5); LYMPH # 1.3 x10^3/uL (1.0-4.8); LYMPH % 24 % (24-48); MEAN CORPUSCULAR HEMOGLOBIN 25 pg (25-35); MEAN CORPUSCULAR HGB CONC 33 g/dL (31-37); MEAN CORPUSCULAR VOLUME 76 fL (79-100); MONO # 0.4 x10^3/uL (0.0-1.1); MONO % 8 % (0-9); NEUT # 2.3 x10^3uL (1.8-7.7); NEUT % 43 % (31-73); PLATELET COUNT 323 x10^3/uL (140-400); RED BLOOD COUNT 3.54 x10^6/uL (4.30-5.70); RED CELL DISTRIBUTION WIDTH 14.9 % (11.5-14.5); WHITE BLOOD COUNT 5.3 x10^3/uL (4.0-11.0)
[2018-07-27] MEDS: AMINO AC 3%/ELECTROLYTE/GLYCER 1,000 ML IV SCH ×2 (06:22→18:17)
[2018-07-27] MEDS: NITROGLYCERIN OINT 1 GM PACKET. TP SCH ×5 (06:22→23:44)
[2018-07-27 06:27] LABS: ALBUMIN 2.4 g/dL (3.4-5.0); ALBUMIN/GLOBULIN RATIO 0.5 (1.0-1.7); CALCIUM 9.2 mg/dL (8.5-10.1); CREATININE 0.7 mg/dL (0.7-1.3); GFR 113.9; POTASSIUM 3.9 mmol/L (3.5-5.1); TOTAL BILIRUBIN 0.2 mg/dL (0.2-1.0); TOTAL PROTEIN 7.4 g/dL (6.4-8.2)
[2018-07-27 07:00] VITALS: BP 123/56
[2018-07-27] MEDS: ASPIRIN CHEWABLE 81 MG TABLET. PO SCH (09:00)
[2018-07-27] MEDS: LACTOBACILLUS RHAMNOSUS GG 1 CAPSULE. PO SCH ×2 (09:00→21:27)
[2018-07-27] MEDS: ENOXAPARIN 40 MG/0.4 ML SYRINGE. SQ SCH ×2 (09:00→16:13)
[2018-07-27 11:00] VITALS: BP 116/49
[2018-07-27 11:02] LABS: % BANDS 2 % (0-9); % EOS 34 % (0-5); % LYMPHS 16 % (24-48); % MONOS 7 % (0-10); % SEGS 41 % (35-66); PLT ESTIMATE ADEQUATE (ADEQUATE)
--- NOTE | 2018-07-27 12:02 | PDOC ---
PROGRESS NOTES Chief Complaint Chief Complaint Complex focal seizure went status epilepticus on 07/02/16. 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 Diabetes 2 Peripheral vascular disease. Tobacco abuse. Left nephrectomy. Gastroesophageal reflux disease. Aspiration Pneumonitis Tremors (?), Age-related atrophy, and evidence of chronic small vessel disease SEVERE MALNUTRITION Difficult to arouse, noncommunicative, no seizure like activity/tremors History of Present Illness History of Present Illness no changes, intermittently confused ativan given overnight not start tube feeds as he can tolerate a regular diet when awake and alert Continue ProcalAmine for now electrolytes stable palliative care consulted continue supportive care PT consulted Has finished course of penicillin for neurosyphilis patient DNR and DNI awaiting conservatorship, sw consulted needs placement HOSPICE BED AVAILABLE IN AM Vitals Vitals Vital Signs Date Time Temp Pulse Resp B/P (MAP) Pulse Ox O2 Delivery O2 Flow Rate FiO2 07/27/18 11:00 97.3 94 16 116/49 (71) 98 Room Air 97.3 Physical Exam Physical Exam GENERAL: Resting quietly, appears comfortable Difficult to arouse, noncommunicative, no seizure like activity/tremors HEENT: Pupils equally round reactive NECK: Supple. LUNGS: Clear HEART: S1 and S2. ABDOMEN: Soft, no grimace or guarding to palpation, BS present EXTREMITIES: No edema and no cyanosis. SKIN: Warm and dry. No generalized rash. ADOLESCENT SPECIALIST: Difficult to arouse,calm no seizure like activity/tremors PICC RUE (07/09) General: Alert, Cooperative, No acute distress, Other (mumbling responses to question, easy to arrouse, left arm and hand fasiculations, pleasantly confused) Heart: Regular rate, Normal S1, Normal S2, No murmurs Lungs: Clear, Other (airway patent, normal respiratory effort, no crackles or wheezing) Abdomen: Normal bowel sounds, Soft, No tenderness, No hepatosplenomegaly, No masses, Other (no grimace or guarding to palpation) Extremities: No clubbing, No cyanosis, No edema, Other (Strong peripheral pulses 3+, PICC RUE C/D/I) Skin: No rashes, No breakdown, No significant lesion Labs LABS Laboratory Tests Test 4/20/19 06:00 White Blood Count 5.3 x10^3/uL (4.0-11.0) Red Blood Count 3.54 x10^6/uL (4.30-5.70) Hemoglobin 8.9 g/dL (13.0-17.5) Hematocrit 26.8 % (39.0-53.0) Mean Corpuscular Volume 76 fL (79-100) Mean Corpuscular Hemoglobin 25 pg (25-35) Mean Corpuscular Hemoglobin Concent 33 g/dL (31-37) Red Cell Distribution Width 14.9 % (11.5-14.5) Platelet Count 323 x10^3/uL (140-400) Neutrophils (%) (Auto) 43 % (31-73) Lymphocytes (%) (Auto) 24 % (24-48) Monocytes (%) (Auto) 8 % (0-9) Eosinophils (%) (Auto) 23 % (0-3) Basophils (%) (Auto) 2 % (0-3) Neutrophils # (Auto) 2.3 x10^3uL (1.8-7.7) Lymphocytes # (Auto) 1.3 x10^3/uL (1.0-4.8) Monocytes # (Auto) 0.4 x10^3/uL (0.0-1.1) Eosinophils # (Auto) 1.2 x10^3/uL (0.0-0.7) Basophils # (Auto) 0.1 x10^3/uL (0.0-0.2) Segmented Neutrophils % 41 % (35-66) Band Neutrophils % 2 % (0-9) Lymphocytes % 16 % (24-48) Monocytes % 7 % (0-10) Eosinophils % 34 % (0-5) Platelet Estimate Adequate (ADEQUATE) Sodium Level 138 mmol/L (136-145) Potassium Level 3.9 mmol/L (3.5-5.1) Chloride Level 102 mmol/L (98-107) Carbon Dioxide Level 28 mmol/L (21-32) Anion Gap 8 (6-14) Blood Urea Nitrogen 14 mg/dL (8-26) Creatinine 0.7 mg/dL (0.7-1.3) Estimated GFR (Cockcroft-Gault) 113.9 BUN/Creatinine Ratio 20 (6-20) Glucose Level 98 mg/dL (70-99) Calcium Level 9.2 mg/dL (8.5-10.1) Total Bilirubin 0.2 mg/dL (0.2-1.0) Aspartate Amino Transf (AST/SGOT) 25 U/L (15-37) Alanine Aminotransferase (ALT/SGPT) 25 U/L (16-63) Alkaline Phosphatase 89 U/L (46-116) Total Protein 7.4 g/dL (6.4-8.2) Albumin 2.4 g/dL (3.4-5.0) Albumin/Globulin Ratio 0.5 (1.0-1.7) Assessment and Plan Assessmemt and Plan Problems Medical Problems: (1) Elevated troponin Status: Acute (2) Tremor Status: Acute Comment Review of Relevant I have reviewed the following items kendrick (where applicable) has been applied. Labs Laboratory Tests Test 07/27/18 06:00 White Blood Count 5.3 x10^3/uL (4.0-11.0) Red Blood Count 3.54 x10^6/uL (4.30-5.70) Hemoglobin 8.9 g/dL (13.0-17.5) Hematocrit 26.8 % (39.0-53.0) Mean Corpuscular Volume 76 fL (79-100) Mean Corpuscular Hemoglobin 25 pg (25-35) Mean Corpuscular Hemoglobin Concent 33 g/dL (31-37) Red Cell Distribution Width 14.9 % (11.5-14.5) Platelet Count 323 x10^3/uL (140-400) Neutrophils (%) (Auto) 43 % (31-73) Lymphocytes (%) (Auto) 24 % (24-48) Monocytes (%) (Auto) 8 % (0-9) Eosinophils (%) (Auto) 23 % (0-3) Basophils (%) (Auto) 2 % (0-3) Neutrophils # (Auto) 2.3 x10^3uL (1.8-7.7) Lymphocytes # (Auto) 1.3 x10^3/uL (1.0-4.8) Monocytes # (Auto) 0.4 x10^3/uL (0.0-1.1) Eosinophils # (Auto) 1.2 x10^3/uL (0.0-0.7) Basophils # (Auto) 0.1 x10^3/uL (0.0-0.2) Segmented Neutrophils % 41 % (35-66) Band Neutrophils % 2 % (0-9) Lymphocytes % 16 % (24-48) Monocytes % 7 % (0-10) Eosinophils % 34 % (0-5) Platelet Estimate Adequate (ADEQUATE) Sodium Level 138 mmol/L (136-145) Potassium Level 3.9 mmol/L (3.5-5.1) Chloride Level 102 mmol/L (98-107) Carbon Dioxide Level 28 mmol/L (21-32) Anion Gap 8 (6-14) Blood Urea Nitrogen 14 mg/dL (8-26) Creatinine 0.7 mg/dL (0.7-1.3) Estimated GFR (Cockcroft-Gault) 113.9 BUN/Creatinine Ratio 20 (6-20) Glucose Level 98 mg/dL (70-99) Calcium Level 9.2 mg/dL (8.5-10.1) Total Bilirubin 0.2 mg/dL (0.2-1.0) Aspartate Amino Transf (AST/SGOT) 25 U/L (15-37) Alanine Aminotransferase (ALT/SGPT) 25 U/L (16-63) Alkaline Phosphatase 89 U/L (46-116) Total Protein 7.4 g/dL (6.4-8.2) Albumin 2.4 g/dL (3.4-5.0) Albumin/Globulin Ratio 0.5 (1.0-1.7) Laboratory Tests Test 07/27/18 06:00 White Blood Count 5.3 x10^3/uL (4.0-11.0) Red Blood Count 3.54 x10^6/uL (4.30-5.70) Hemoglobin 8.9 g/dL (13.0-17.5) Hematocrit 26.8 % (39.0-53.0) Mean Corpuscular Volume 76 fL (79-100) Mean Corpuscular Hemoglobin 25 pg (25-35) Mean Corpuscular Hemoglobin Concent 33 g/dL (31-37) Red Cell Distribution Width 14.9 % (11.5-14.5) Platelet Count 323 x10^3/uL (140-400) Neutrophils (%) (Auto) 43 % (31-73) Lymphocytes (%) (Auto) 24 % (24-48) Monocytes (%) (Auto) 8 % (0-9) Eosinophils (%) (Auto) 23 % (0-3) Basophils (%) (Auto) 2 % (0-3) Neutrophils # (Auto) 2.3 x10^3uL (1.8-7.7) Lymphocytes # (Auto) 1.3 x10^3/uL (1.0-4.8) Monocytes # (Auto) 0.4 x10^3/uL (0.0-1.1) Eosinophils # (Auto) 1.2 x10^3/uL (0.0-0.7) Basophils # (Auto) 0.1 x10^3/uL (0.0-0.2) Segmented Neutrophils % 41 % (35-66) Band Neutrophils % 2 % (0-9) Lymphocytes % 16 % (24-48) Monocytes % 7 % (0-10) Eosinophils % 34 % (0-5) Platelet Estimate Adequate (ADEQUATE) Sodium Level 138 mmol/L (136-145) Potassium Level 3.9 mmol/L (3.5-5.1) Chloride Level 102 mmol/L (98-107) Carbon Dioxide Level 28 mmol/L (21-32) Anion Gap 8 (6-14) Blood Urea Nitrogen 14 mg/dL (8-26) Creatinine 0.7 mg/dL (0.7-1.3) Estimated GFR (Cockcroft-Gault) 113.9 BUN/Creatinine Ratio 20 (6-20) Glucose Level 98 mg/dL (70-99) Calcium Level 9.2 mg/dL (8.5-10.1) Total Bilirubin 0.2 mg/dL (0.2-1.0) Aspartate Amino Transf (AST/SGOT) 25 U/L (15-37) Alanine Aminotransferase (ALT/SGPT) 25 U/L (16-63) Alkaline Phosphatase 89 U/L (46-116) Total Protein 7.4 g/dL (6.4-8.2) Albumin 2.4 g/dL (3.4-5.0) Albumin/Globulin Ratio 0.5 (1.0-1.7) Microbiology 07/02/18 Blood Culture - Final, Complete NO GROWTH AFTER 5 DAYS 07/05/18 CSF Gram Stain - Final, Complete Medications Current Medications Sodium Chloride 1,000 ml @ 1,000 mls/hr 1X ONCE IV Last administered on at 10:00; Start 07/02/18 at 10:00; Stop 07/02/18 at 10:59; Status DC Lorazepam (Ativan) 0.5 mg 1X ONCE IV Last administered on 07/02/18at 12:12; Start 07/02/18 at 12:30; Stop 07/02/18 at 12:31; Status DC Aspirin (Children'S Aspirin) 324 mg 1X ONCE PO Last administered on 07/02/18at 13:18; Start 07/02/18 at 13:30; Stop 07/02/18 at 13:31; Status DC Acetaminophen (Tylenol) 650 mg PRN Q4HRS PRN PO FEVER; Start 07/02/18 at 14:30 ; Stop 07/02/18 at 18:38; Status DC Lorazepam (Ativan) 2 mg PRN Q4HRS PRN IV ANXIETY/AGITATION/ETOH WITHDRL Last administered on 07/27/18at 02:54; Start 07/02/18 at 15:30 Levetiracetam 750 mg/Dextrose 107.5 ml @ 420 mls/hr Q12HR IV Last administered on 07/03/18at 09:35; Start 07/02/18 at 16:30; Stop 07/03/18 at 14:17 ; Status DC Sodium Chloride (Normal Saline Flush 3ml) 3 ml QSHIFT PRN IV AFTER MEDS AND BLOOD DRAWS Last administered on 07/16/18at 07:35; Start 07/02/18 at 15:45 Sodium Chloride 1,000 ml @ 100 mls/hr Q10H IV Last administered on 07/02/18at 16:04; Start 07/02/18 at 16:30; Stop 07/04/18 at 16:37; Status DC Ondansetron HCl (Zofran) 4 mg PRN Q4HRS PRN IV NAUSEA/VOMITING; Start 07/02/18 at 15:45 Zolpidem Tartrate (Ambien) 5 mg PRN QHS PRN PO INSOMNIA Last administered on at 21:38; Start 07/02/18 at 15:45 Acetaminophen (Tylenol) 650 mg PRN Q4HRS PRN PO TEMP OVER 100.4F OR MILD PAIN Last administered on 07/21/18 20:47; Start 07/02/18 at 15:45 Al Hydroxide/Mg Hydroxide (Mylanta Plus Xs) 30 ml PRN DAILY PRN PO HEARTBURN / GAS; Start 07/02/18 at 15:45 Clonidine HCl (Catapres) 0.1 mg PRN Q6HRS PRN PO SBP>160 OR DBP>90; Start 07/02 at 15:45 Sodium Monofluorophosphate (Fleet Adult) 133 ml PRN DAILY PRN VA CONSTIPATION Last administered on 07/23/18 17:54; Start 07/02/18 at 15:45 Diphenhydramine HCl (Benadryl) 25 mg PRN Q4HRS PRN IVP ITCHING Last administered on 07/20/18 21:20; Start 07/02/18 at 15:45 Docusate Sodium (Colace) 100 mg PRN BID PRN PO CONSTIPATION Last administered on 07/21/18 09:53; Start 07/02/18 at 15:45 Albuterol Sulfate (Ventolin Neb Soln) 2.5 mg PRN Q4HRS PRN NEB SHORTNESS OF BREATH; Start 07/02/18 at 15:45 Guaifenesin (Robitussin) 200 mg PRN Q4HRS PRN PO COUGH; Start 07/02/18 at 15:45 Lorazepam (Ativan) 0.5 mg PRN Q4HRS PRN PO ANXIETY / AGITATION Last administered on 07/25/18 09:17; Start 07/02/18 at 15:45 Enoxaparin Sodium (Lovenox 40mg Syringe) 40 mg DAILY SQ Last administered on 09:34; Start 07/03/18 at 09:00 Hydralazine HCl (Apresoline Inj) 10 mg PRN Q4HRS PRN IVP ELEVATED BP, SEE COMMENTS Last administered on 07/20/18 02:45; Start 07/02/18 at 16:45 Nitroglycerin (Nitro-Bid Oint) 0.5 inch Q6HRS TP Last administered on 06:22; Start 07/02/18 at 17:30 Aspirin (Children'S Aspirin) 81 mg DAILY PO Last administered on 07/25/18at 09: 17; Start 07/03/18 at 09:00 Lorazepam (Ativan) 2 mg PRN Q4HRS PRN IV ALCOHOL WITHDRAWAL; Start 07/02/18 at 18:30; Status Cancel Cefepime HCl (Maxipime) 2 gm Q8HRS IVP Last administered on 07/04/18at 14:00; Start 07/03/18 at 14:30; Stop 07/04/18 at 18:56; Status DC Acyclovir Sodium 730 mg/Dextrose 264.6 ml @ 264.6 mls/ hr Q8HRS IV Last administered on 07/04/18at 05:07; Start 07/03/18 at 15:00; Stop 07/04/18 at 12:26 ; Status DC Vancomycin HCl (Vanco Per Pharmacy) 1 each PRN DAILY PRN MC SEE COMMENTS Last administered on 07/04/18at 12:31; Start 07/03/18 at 14:15; Stop 07/04/18 at 18:56 ; Status DC Ampicillin Sodium 2 gm/Sodium Chloride 100 ml @ 200 mls/hr Q4HRS IV Last administered on 07/04/18at 16:24; Start 07/03/18 at 16:00; Stop 07/04/18 at 18:56 ; Status DC Vancomycin HCl 1.5 gm/Sodium Chloride 500 ml @ 250 mls/hr 1X ONCE IV Last administered on 07/03/18at 17:54; Start 07/03/18 at 15:00; Stop 07/03/18 at 16:59 ; Status DC Levetiracetam 500 mg/Dextrose 105 ml @ 420 mls/hr Q12HR IV Last administered on 07/07/18at 09:55; Start 07/03/18 at 21:00; Stop 07/07/18 at 11:46; Status DC Divalproex Sodium (Depakote) 500 mg BID PO ; Start 07/03/18 at 21:00; Stop 07/04 at 16:20; Status DC Vancomycin HCl 1 gm/Sodium Chloride 250 ml @ 250 mls/hr Q12H IV Last administered on 07/04/18at 18:45; Start 07/04/18 at 06:00; Stop 07/04/18 at 18:58 ; Status DC Vancomycin HCl (Vancomycin Trough Level) 1 each 1X ONCE MC ; Start 07/05/18 at 05:30; Stop 07/05/18 at 05:31; Status Cancel Amino Acids/ Glycerin/ Electrolytes 1,000 ml @ 80 mls/hr [id number] IV Last administered on 07/27/18at 06:22; Start 07/03/18 at 19:15 Acyclovir Sodium 620 mg/Dextrose 262.4 ml @ 262.4 mls/ hr Q8HRS IV Last administered on 07/05/18at 05:05; Start 07/04/18 at 14:00; Stop 07/05/18 at 13:59 ; Status DC Lactobacillus Rhamnosus (Culturelle) 1 cap BID PO Last administered on at 21:38; Start 07/04/18 at 21:00 Valproic Acid 500 mg/Dextrose 55 ml @ 55 mls/hr Q8HRS IV Last administered on at 06:05; Start 07/04/18 at 17:00; Stop 07/10/18 at 12:12; Status DC Acyclovir Sodium 620 mg/Dextrose 112.4 ml @ 112.4 mls/ hr Q8HRS IV Last administered on 07/06/18at 05:19; Start 07/05/18 at 14:00; Stop 07/06/18 at 13:52 ; Status DC Cefepime HCl (Maxipime) 1 gm Q8HRS IVP Last administered on 07/08/18at 05:47; Start 07/04/18 at 22:00; Stop 07/08/18 at 09:20; Status DC Iohexol (Omnipaque 350 Mg/ml) 75 ml 1X ONCE IV Last administered on 07/05/18at 11:45; Start 07/05/18 at 11:15; Stop 07/05/18 at 11:16; Status DC Info (CONTRAST GIVEN -- Rx MONITORING) 1 each PRN DAILY PRN MC SEE COMMENTS; Start 07/05/18 at 11:30; Stop 07/07/18 at 11:29; Status DC Carbamazepine (TEGretol) 200 mg BID PO Last administered on 07/26/18at 21:38; Start 07/07/18 at 21:00 Ceftriaxone Sodium (Rocephin) 2 gm Q24H IVP Last administered on 07/09/18 08:02 ; Start 07/08/18 at 10:00; Stop 07/09/18 at 11:51; Status DC Penicillin G Potassium [id number] unit/Dextrose 100 ml @ 100 mls/hr Q4HRS IV Last administered on 07/21/18 20:47; Start 07/09/18 at 12:00; Stop 07/21/18 at 23:59; Status DC Barium Sulfate (Varibar Thin Liquid Apple) 148 gm 1X ONCE PO Last administered on 07/09/18 13:53; Start 07/09/18 at 13:00; Stop 07/09/18 at 13:01; Status DC Non-Formulary Medication 1 ea QID PO Last administered on 07/13/18 20:04; Start 07/11/18 at 21:00; Stop 07/14/18 at 15:35; Status DC Probenecid (Benemid) 500 mg QID PO Last administered on 07/20/18 08:25; Start 07/14/18 at 17:00; Stop 07/20/18 at 13:00; Status DC Barium Sulfate (Varibar Thin Liquid Apple) 148 gm 1X ONCE PO ; Start 07/16/18 at 14:00; Stop 07/16/18 at 14:01; Status DC Haloperidol Lactate (Haldol Inj) 5 mg PRN Q6HRS PRN IVP AGITATION 2ND CHOICE Last administered on 07/26/18 15:25; Start 07/19/18 at 21:15 Alteplase, Recombinant (Cathflo For Central Catheter Clearance) 1 mg 1X ONCE INT CAT Last administered on 07/26/18at 18:40; Start 07/26/18 at 18:30; Stop at 18:31; Status DC Active Scripts Active Reported Zithromax (Azithromycin) 500 Mg Tablet 1 Tab PO DAILY Aspirin 81 Mg Tab.chew 81 Mg PO DAILY Hydrocodone-Apap 5-325 (Hydrocodone Bit/Acetaminophen) 1 Tab Tablet 1 Tab PO PRN Q6HRS PRN Vitals/I & O Vital Sign - Last 24 Hours 07/26/18 07/26/18 07/26/18 07/26/18 12:12 15:00 19:00 20:20 Temp 98.0 98.0 98.0 98.0 Pulse 72 71 59 Resp 18 18 B/P (MAP) 110/62 139/66 (90) 133/52 (79) Pulse Ox 98 100 O2 Delivery Room Air Room Air Room Air 07/26/18 07/27/18 07/27/18 07/27/18 23:00 03:00 06:22 07:00 Temp 97.7 97.7 Pulse 72 83 83 61 Resp 16 16 18 B/P (MAP) 127/52 (77) 139/80 (99) 139/80 123/56 (78) Pulse Ox 99 99 98 O2 Delivery Room Air Room Air Room Air 07/27/18 11:00 Temp 97.3 97.3 Pulse 94 Resp 16 B/P (MAP) 116/49 (71) Pulse Ox 98 O2 Delivery Room Air Intake and Output 07/26/18 07/26/18 07/27/18 15:00 23:00 07:00 Intake Total 1900 ml Output Total 200 ml Balance 1700 ml Nutrition Consultation Dietary Evaluation: Recommendations by RD: Increase Calorie Intake, Protein supplementation Comments: PPN - rec d/c. continue diet per WASTEWATER ANALYST LAB ANALYST w/ supplements- encourage po intake Recommend TF- dobhoff or PEG per palliative Expected Outcomes/Goals: New goal: TF initiation 07/11: to meet > 75% est nutr need via po intake- goal not met, d/c 07/25/18 Interpretation of weight loss: >7.5% in 3 months Malnutrition Findings: Weight Status: Appropriate LINDA ECHEVARRIA MD Jul 27, 2018 12:02
[2018-07-27 15:00] VITALS: BP 122/54
[2018-07-27] MEDS: carBAMazepine 200 MG TABLET PO SCH ×2 (15:45→21:27)
[2018-07-27] MEDS: SODIUM PHOSPHATES 19/7GM 133 ML ENEMA. PR PRN (15:46)
--- NOTE | 2018-07-27 17:10 | PDOC ---
PROGRESS NOTES Assessment Assessment Complex focal seizure went status epilepticus on 07/02/16. Metabolic encephalopathy. Hypertensive encephalopathy. Hypertensive emergency, BP 214/112 mmHg. HTN, poorly controlled. DM. PVD. Smoking. 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 Neurosyphilis. RECOMMENDATIONS/PLAN: Continue Tegretol 200 mg bid. Brain MRI was unable to perform on him due to metallic projects at the floor of the left maxillary sinus. Treat medical diseases. ID on team. Treated for neurosyphilis, chronic. Consulted Palliative Care Team. EEG on 07/03/18: Asymmetric cerebral activity. Diffuse slowing in the right side hemispheric area. Repeated EEG on 07/09/18: No seizure activity. HISTORY OF THE PRESENT ILLNESS: This is a 63-y-old descent male patient admitted due to noted altered mental state changes with abnormal movements in left side. Per staff, girlfriend mentioned noting him to be disoriented and EMS was called. He speaks Mohawk. He was noted with abnormal movements while on floor he was noted with seizure episodes. No seizure history reported by his girlfriend. No noted complains of any CP SOB leading to this event. No known hx of CAD but noted previously with PAD. It does not appear that he takes medications. Status epilepticus controlled after Ativan and Keppra administrations on 06/04/18 , but he has abnormal chorea like movements in his left UE. He stated on 07/06/18 that he had seizures in his left UE for many years. Seizure controlled on Carbamazepine. PAST MEDICAL HISTORY Cardiovascular: PAD; hx of asymptomatic SB. GI: GERD PAST SURGICAL HISTORY Left nephrectomy. FAMILY HISTORY Unknown SOCIAL HISTORY Smoke: <1 pack per day Lives: With friends. Reportedly was in long term for 20-30 years in his home country before coming here. ALLERGY: Unknown MEDICATIONS: Refer to MAR REVIEW OF SYSTEMS: Constitutional: No malnutrition, cachexia. Head: No traumatic brain or head injury. Skin: No edema, or rash. Ear: No infection. Eyes: No vision loss or color blindness. Nose: No bleeding or purulent discharges. Hearing: No hearing decrease. Neck: No injury. Cardiac: HTN. Pulmonary: Smoking. GI: No GI ulcer, GI bleeding. Urinary/genital: No dysuria, incontinence, urinary retention. Endocrinologic: Diabetes Mellitus. Skeletomuscular: No muscular atrophy. Neurological: see HP. Psychiatric: Denies drug use/abuse. Otherwise, not [id number] review of systems. PHYSICAL EXAMINATION: General appearance is in no acute distress. HEENT: Normocephalic and nontraumatic. Eyes, nose, ears, and throat are unremarkable. Neck is supple. No lymphadenopathy. No crepitus. Cardiovascular: S1, S2, regular rate and rhythm. Pulmonary: No rales heard. Abdomen: Bowel sounds are positive. Extremities: No rash, lesions, or edema. No restriction of range of motion NEUROLOGICAL EXAMINATION: Awake. Not fully oriented to time, but knew place and person. PERRL. EOMI. CN: no acute focal findings. Muscle tone: Increased. Muscle strength: 4+ DTR: 3+. Plantar reflex: Neutral response bilaterally Gait: not examined in bed. Sensory exam: no acute abnormal findings. No acute cerebellar signs elicited. F-T-N test not performed due to not follow commands. Objective Objective Vital Signs Date Time Temp Pulse Resp B/P (MAP) Pulse Ox O2 Delivery O2 Flow Rate FiO2 07/27/18 15:00 97.9 71 18 122/54 (76) 100 Room Air 97.9 Intake and Output 07/27/18 07:00 Intake Total 1900 ml Output Total 200 ml Balance 1700 ml Intake Oral 900 ml IV Total 1000 ml Output Urine Total 200 ml # Voids 9 Vitals Signs Vitals VS - Last 72 Hours, by Label Date Time Temp Pulse Resp B/P (MAP) Pulse Ox O2 Delivery O2 Flow Rate FiO2 07/27/18 15:00 97.9 71 18 122/54 (76) 100 Room Air 97.9 07/27/18 13:16 94 116/49 07/27/18 11:00 97.3 94 16 116/49 (71) 98 Room Air 97.3 07/27/18 08:00 Room Air 07/27/18 07:00 97.7 61 18 123/56 (78) 98 Room Air 97.7 07/27/18 06:22 83 139/80 07/27/18 03:00 83 16 139/80 (99) 99 Room Air 07/26/18 23:00 72 16 127/52 (77) 99 Room Air 07/26/18 20:20 Room Air 07/26/18 19:00 98.0 59 18 133/52 (79) 100 Room Air 98.0 07/26/18 15:00 98.0 71 18 139/66 (90) 98 Room Air 98.0 07/26/18 12:12 72 110/62 07/26/18 11:00 98.0 72 18 110/62 (78) 98 Room Air 98.0 07/26/18 08:00 Room Air 07/26/18 08:00 Room Air 07/26/18 07:00 97.6 73 18 105/55 (72) 99 Room Air 97.6 Laboratory Laboratory Laboratory Tests Test 07/27/18 06:00 White Blood Count 5.3 x10^3/uL (4.0-11.0) Red Blood Count 3.54 x10^6/uL (4.30-5.70) Hemoglobin 8.9 g/dL (13.0-17.5) Hematocrit 26.8 % (39.0-53.0) Mean Corpuscular Volume 76 fL (79-100) Mean Corpuscular Hemoglobin 25 pg (25-35) Mean Corpuscular Hemoglobin Concent 33 g/dL (31-37) Red Cell Distribution Width 14.9 % (11.5-14.5) Platelet Count 323 x10^3/uL (140-400) Neutrophils (%) (Auto) 43 % (31-73) Lymphocytes (%) (Auto) 24 % (24-48) Monocytes (%) (Auto) 8 % (0-9) Eosinophils (%) (Auto) 23 % (0-3) Basophils (%) (Auto) 2 % (0-3) Neutrophils # (Auto) 2.3 x10^3uL (1.8-7.7) Lymphocytes # (Auto) 1.3 x10^3/uL (1.0-4.8) Monocytes # (Auto) 0.4 x10^3/uL (0.0-1.1) Eosinophils # (Auto) 1.2 x10^3/uL (0.0-0.7) Basophils # (Auto) 0.1 x10^3/uL (0.0-0.2) Segmented Neutrophils % 41 % (35-66) Band Neutrophils % 2 % (0-9) Lymphocytes % 16 % (24-48) Monocytes % 7 % (0-10) Eosinophils % 34 % (0-5) Platelet Estimate Adequate (ADEQUATE) Sodium Level 138 mmol/L (136-145) Potassium Level 3.9 mmol/L (3.5-5.1) Chloride Level 102 mmol/L (98-107) Carbon Dioxide Level 28 mmol/L (21-32) Anion Gap 8 (6-14) Blood Urea Nitrogen 14 mg/dL (8-26) Creatinine 0.7 mg/dL (0.7-1.3) Estimated GFR (Cockcroft-Gault) 113.9 BUN/Creatinine Ratio 20 (6-20) Glucose Level 98 mg/dL (70-99) Calcium Level 9.2 mg/dL (8.5-10.1) Total Bilirubin 0.2 mg/dL (0.2-1.0) Aspartate Amino Transf (AST/SGOT) 25 U/L (15-37) Alanine Aminotransferase (ALT/SGPT) 25 U/L (16-63) Alkaline Phosphatase 89 U/L (46-116) Total Protein 7.4 g/dL (6.4-8.2) Albumin 2.4 g/dL (3.4-5.0) Albumin/Globulin Ratio 0.5 (1.0-1.7) Microbiology 07/02/18 Blood Culture - Final, Complete NO GROWTH AFTER 5 DAYS 07/05/18 CSF Gram Stain - Final, Complete Medication Medications Current Medications Alteplase, Recombinant (Cathflo For Central Catheter Clearance) 1 mg 1X ONCE INT CAT Last administered on 07/26/18at 18:40; Start 07/26/18 at 18:30; Stop at 18:31; Status DC Comment Review of Relevant I have reviewed the following items kendrick (where applicable) has been applied. NICOLÁS CAMPOS MD Jul 27, 2018 17:10
[2018-07-27 19:00] VITALS: BP 140/79
[2018-07-27] MEDS: HALOPERIDOL LACTATE 5 MG/ML VIAL. IVP PRN (22:33)
[2018-07-27 22:42] VITALS: BP 156/63
[2018-07-27] MEDS: ZOLPIDEM 5 MG TABLET. PO PRN (23:40)
--- NOTE | 2018-07-27 23:45 | NUR ---
Pt continue to be agitated and continue to get out of bed even with PRN medications given. At this time, pt continue to pull anything that is on his body off, so nitro-patch was not administered at this time as pt will not keep it on. Will continue to monitor pt closely.
[2018-07-28] MEDS: AMINO AC 3%/ELECTROLYTE/GLYCER 1,000 ML IV SCH ×2 (06:17→18:47)
[2018-07-28] MEDS: NITROGLYCERIN OINT 1 GM PACKET. TP SCH ×4 (06:18→23:49)
[2018-07-28 06:19] VITALS: BP 139/58
[2018-07-28 06:30] LABS: HEMOGLOBIN 9.2 g/dL (13.0-17.5); RED BLOOD COUNT 3.69 x10^6/uL (4.30-5.70); RED CELL DISTRIBUTION WIDTH 15.3 % (11.5-14.5); WHITE BLOOD COUNT 5.8 x10^3/uL (4.0-11.0)
[2018-07-28] MEDS: DOCUSATE SODIUM 100 MG CAPSULE. PO PRN (09:02)
[2018-07-28] MEDS: ENOXAPARIN 40 MG/0.4 ML SYRINGE. SQ SCH (09:02)
[2018-07-28] MEDS: ASPIRIN CHEWABLE 81 MG TABLET. PO SCH (09:02)
[2018-07-28] MEDS: carBAMazepine 200 MG TABLET PO SCH ×2 (09:02→21:29)
[2018-07-28] MEDS: LACTOBACILLUS RHAMNOSUS GG 1 CAPSULE. PO SCH ×2 (09:02→21:29)
[2018-07-28 11:00] VITALS: BP 130/55
--- NOTE | 2018-07-28 12:25 | PDOC ---
PROGRESS NOTES Assessment Assessment Complex focal seizure went status epilepticus on 07/02/16. Metabolic encephalopathy. Hypertensive encephalopathy. Hypertensive emergency, BP 214/112 mmHg. HTN, poorly controlled. DM. PVD. Smoking. 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 Neurosyphilis. RECOMMENDATIONS/PLAN: Continue Tegretol 200 mg bid. Treat medical diseases. ID on team. Treated for neurosyphilis, chronic. Consulted Palliative Care Team., wait for placement. EEG on 07/03/18: Asymmetric cerebral activity. Diffuse slowing in the right side hemispheric area. Repeated EEG on 07/09/18: No seizure activity. HISTORY OF THE PRESENT ILLNESS: This is a 63-y-old descent male patient admitted due to noted altered mental state changes with abnormal movements in left side. Per staff, girlfriend mentioned noting him to be disoriented and EMS was called. He speaks Icelandic. He was noted with abnormal movements while on floor he was noted with seizure episodes. No seizure history reported by his girlfriend. No noted complains of any CP SOB leading to this event. No known hx of CAD but noted previously with PAD. It does not appear that he takes medications. Status epilepticus controlled after Ativan and Keppra administrations on 06/04/18 , but he has abnormal chorea like movements in his left UE. He stated on 07/06/18 that he had seizures in his left UE for many years. Seizure controlled on Carbamazepine. He stated on 07/28/18 he did not know what country he came from. PAST MEDICAL HISTORY Cardiovascular: PAD; hx of asymptomatic SB. GI: GERD PAST SURGICAL HISTORY Left nephrectomy. FAMILY HISTORY Unknown SOCIAL HISTORY Smoke: <1 pack per day Lives: With friends. 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 ALLERGY: Unknown MEDICATIONS: Refer to MAR REVIEW OF SYSTEMS: Constitutional: No malnutrition, cachexia. Head: No traumatic brain or head injury. Skin: No edema, or rash. Ear: No infection. Eyes: No vision loss or color blindness. Nose: No bleeding or purulent discharges. Hearing: No hearing decrease. Neck: No injury. Cardiac: HTN. Pulmonary: Smoking. GI: No GI ulcer, GI bleeding. Urinary/genital: No dysuria, incontinence, urinary retention. Endocrinologic: Diabetes Mellitus. Skeletomuscular: No muscular atrophy. Neurological: see HP. Psychiatric: Denies drug use/abuse. Otherwise, not [id number] review of systems. PHYSICAL EXAMINATION: General appearance is in no acute distress. HEENT: Normocephalic and nontraumatic. Eyes, nose, ears, and throat are unremarkable. Neck is supple. No lymphadenopathy. No crepitus. Cardiovascular: S1, S2, regular rate and rhythm. Pulmonary: No rales heard. Abdomen: Bowel sounds are positive. Extremities: No rash, lesions, or edema. No restriction of range of motion NEUROLOGICAL EXAMINATION: Awake. Not fully oriented to time and place but knew person. PERRL. EOMI. CN: no acute focal findings. Muscle tone: Increased. Muscle strength: 4+ DTR: 3+. Plantar reflex: Neutral response bilaterally Gait: not examined in bed. Sensory exam: no acute abnormal findings. No acute cerebellar signs elicited. F-T-N test not performed due to not follow commands. Objective Objective Vital Signs Date Time Temp Pulse Resp B/P (MAP) Pulse Ox O2 Delivery O2 Flow Rate FiO2 07/28/18 11:00 96.9 66 20 130/55 (80) 99 Room Air 2.0 96.9 Intake and Output 07/28/18 07:00 Intake Total 180 ml Balance 180 ml Intake Oral 180 ml # Voids 1 Vitals Signs Vitals VS - Last 72 Hours, by Label Date Time Temp Pulse Resp B/P (MAP) Pulse Ox O2 Delivery O2 Flow Rate FiO2 07/28/18 11:00 96.9 66 20 130/55 (80) 99 Room Air 2.0 96.9 07/28/18 08:00 Room Air 07/28/18 06:19 98.4 64 18 139/58 (85) 99 Room Air 98.4 07/28/18 06:18 64 139/58 07/27/18 22:42 98.4 84 18 156/63 (94) 99 Room Air 98.4 07/27/18 20:00 Room Air 07/27/18 19:00 97.8 84 18 140/79 (99) 100 Room Air 97.8 07/27/18 15:00 97.9 71 18 122/54 (76) 100 Room Air 97.9 07/27/18 13:16 94 116/49 07/27/18 11:00 97.3 94 16 116/49 (71) 98 Room Air 97.3 07/27/18 08:00 Room Air 07/27/18 07:00 97.7 61 18 123/56 (78) 98 Room Air 97.7 Laboratory Laboratory Laboratory Tests Test 07/28/18 05:34 White Blood Count 5.8 x10^3/uL (4.0-11.0) Red Blood Count 3.69 x10^6/uL (4.30-5.70) Hemoglobin 9.2 g/dL (13.0-17.5) Hematocrit 28.0 % (39.0-53.0) Mean Corpuscular Volume 76 fL (79-100) Mean Corpuscular Hemoglobin 25 pg (25-35) Mean Corpuscular Hemoglobin Concent 33 g/dL (31-37) Red Cell Distribution Width 15.3 % (11.5-14.5) Platelet Count 359 x10^3/uL (140-400) Microbiology 07/02/18 Blood Culture - Final, Complete NO GROWTH AFTER 5 DAYS 07/05/18 CSF Gram Stain - Final, Complete Comment Review of Relevant I have reviewed the following items kendrick (where applicable) has been applied. NICOLÁS CAMPOS MD Jul 28, 2018 12:25
--- NOTE | 2018-07-28 14:22 | PDOC ---
PROGRESS NOTES Chief Complaint Chief Complaint Complex focal seizure went status epilepticus on 07/02/16. 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 Diabetes 2 Peripheral vascular disease. Tobacco abuse. Left nephrectomy. Gastroesophageal reflux disease. Aspiration Pneumonitis Tremors (?), Age-related atrophy, and evidence of chronic small vessel disease SEVERE MALNUTRITION Difficult to arouse, noncommunicative, no seizure like activity/tremors History of Present Illness History of Present Illness Pt seen and examined, pt resting peacefully in bed. RN notes pt was agitated this morning and required sedation Per RN pt was awake and conversing with friends and visitors during the past 24hrs Question regarding conservatorship/guardian, will discuss with SW DNR/DNI Vitals Vitals Vital Signs Date Time Temp Pulse Resp B/P (MAP) Pulse Ox O2 Delivery O2 Flow Rate FiO2 07/28/18 12:00 66 130/55 07/28/18 11:00 96.9 20 99 Room Air 2.0 96.9 Physical Exam General: Alert, Cooperative, No acute distress, Other ( Resting quietly, appears comfortable, noncommunicative, no seizure like activity/tremors) Heart: Regular rate, Normal S1, Normal S2, No murmurs Lungs: Clear, Other (airway patent, normal respiratory effort, no crackles or wheezing) Abdomen: Normal bowel sounds, Soft, No tenderness, No hepatosplenomegaly, No masses, Other (no grimace or guarding to palpation) Extremities: No clubbing, No cyanosis, No edema, Other (Strong peripheral pulses 3+, PICC RUE C/D/I (4/)) Skin: No rashes, No breakdown, No significant lesion Labs LABS Laboratory Tests Test 07/28/18 05:34 White Blood Count 5.8 x10^3/uL (4.0-11.0) Red Blood Count 3.69 x10^6/uL (4.30-5.70) Hemoglobin 9.2 g/dL (13.0-17.5) Hematocrit 28.0 % (39.0-53.0) Mean Corpuscular Volume 76 fL (79-100) Mean Corpuscular Hemoglobin 25 pg (25-35) Mean Corpuscular Hemoglobin Concent 33 g/dL (31-37) Red Cell Distribution Width 15.3 % (11.5-14.5) Platelet Count 359 x10^3/uL (140-400) Review of Systems Review of Systems unobtainable Assessment and Plan Assessmemt and Plan Assessment: Complex focal seizure went status epilepticus on 07/02/16. 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 Diabetes 2 Peripheral vascular disease. Tobacco abuse. Left nephrectomy. Gastroesophageal reflux disease. Aspiration Pneumonitis Tremors (?), Age-related atrophy, and evidence of chronic small vessel disease SEVERE MALNUTRITION Difficult to arouse, noncommunicative, no seizure like activity/tremors EEG on 07/03/18: Asymmetric cerebral activity. Diffuse slowing in the right side hemispheric area. Repeated EEG on 07/09/18: No seizure activity. Plan: Encourage PO intake, On ProcalAmine 80/hr Bowel Regimen started Tegretol 200 mg bid, appreciated speciality input ID: has finished course of penicillin for neurosyphilis, chronic PT/OT orders Palliative care was consulted Question regarding conservatorship/guardian, will discuss with Supportive care DNR and DNI Problems Medical Problems: (1) Elevated troponin Status: Acute (2) Tremor Status: Acute Comment Review of Relevant I have reviewed the following items kendrick (where applicable) has been applied. Labs Laboratory Tests Test 07/27/18 06:00 07/28/18 05:34 White Blood Count 5.3 x10^3/uL (4.0-11.0) 5.8 x10^3/uL (4.0-11.0) Red Blood Count 3.54 x10^6/uL (4.30-5.70) 3.69 x10^6/uL (4.30-5.70) Hemoglobin 8.9 g/dL (13.0-17.5) 9.2 g/dL (13.0-17.5) Hematocrit 26.8 % (39.0-53.0) 28.0 % (39.0-53.0) Mean Corpuscular Volume 76 fL (79-100) 76 fL (79-100) Mean Corpuscular Hemoglobin 25 pg (25-35) 25 pg (25-35) Mean Corpuscular Hemoglobin Concent 33 g/dL (31-37) 33 g/dL (31-37) Red Cell Distribution Width 14.9 % (11.5-14.5) 15.3 % (11.5-14.5) Platelet Count 323 x10^3/uL (140-400) 359 x10^3/uL (140-400) Neutrophils (%) (Auto) 43 % (31-73) Lymphocytes (%) (Auto) 24 % (24-48) Monocytes (%) (Auto) 8 % (0-9) Eosinophils (%) (Auto) 23 % (0-3) Basophils (%) (Auto) 2 % (0-3) Neutrophils # (Auto) 2.3 x10^3uL (1.8-7.7) Lymphocytes # (Auto) 1.3 x10^3/uL (1.0-4.8) Monocytes # (Auto) 0.4 x10^3/uL (0.0-1.1) Eosinophils # (Auto) 1.2 x10^3/uL (0.0-0.7) Basophils # (Auto) 0.1 x10^3/uL (0.0-0.2) Segmented Neutrophils % 41 % (35-66) Band Neutrophils % 2 % (0-9) Lymphocytes % 16 % (24-48) Monocytes % 7 % (0-10) Eosinophils % 34 % (0-5) Platelet Estimate Adequate (ADEQUATE) Sodium Level 138 mmol/L (136-145) Potassium Level 3.9 mmol/L (3.5-5.1) Chloride Level 102 mmol/L (98-107) Carbon Dioxide Level 28 mmol/L (21-32) Anion Gap 8 (6-14) Blood Urea Nitrogen 14 mg/dL (8-26) Creatinine 0.7 mg/dL (0.7-1.3) Estimated GFR (Cockcroft-Gault) 113.9 BUN/Creatinine Ratio 20 (6-20) Glucose Level 98 mg/dL (70-99) Calcium Level 9.2 mg/dL (8.5-10.1) Total Bilirubin 0.2 mg/dL (0.2-1.0) Aspartate Amino Transf (AST/SGOT) 25 U/L (15-37) Alanine Aminotransferase (ALT/SGPT) 25 U/L (16-63) Alkaline Phosphatase 89 U/L (46-116) Total Protein 7.4 g/dL (6.4-8.2) Albumin 2.4 g/dL (3.4-5.0) Albumin/Globulin Ratio 0.5 (1.0-1.7) Laboratory Tests Test 07/28/18 05:34 White Blood Count 5.8 x10^3/uL (4.0-11.0) Red Blood Count 3.69 x10^6/uL (4.30-5.70) Hemoglobin 9.2 g/dL (13.0-17.5) Hematocrit 28.0 % (39.0-53.0) Mean Corpuscular Volume 76 fL (79-100) Mean Corpuscular Hemoglobin 25 pg (25-35) Mean Corpuscular Hemoglobin Concent 33 g/dL (31-37) Red Cell Distribution Width 15.3 % (11.5-14.5) Platelet Count 359 x10^3/uL (140-400) Microbiology 07/02/18 Blood Culture - Final, Complete NO GROWTH AFTER 5 DAYS 07/05/18 CSF Gram Stain - Final, Complete Medications Current Medications Sodium Chloride 1,000 ml @ 1,000 mls/hr 1X ONCE IV Last administered on at 10:00; Start 07/02/18 at 10:00; Stop 07/02/18 at 10:59; Status DC Lorazepam (Ativan) 0.5 mg 1X ONCE IV Last administered on 07/02/18at 12:12; Start 07/02/18 at 12:30; Stop 07/02/18 at 12:31; Status DC Aspirin (Children'S Aspirin) 324 mg 1X ONCE PO Last administered on 07/02/18at 13:18; Start 07/02/18 at 13:30; Stop 07/02/18 at 13:31; Status DC Acetaminophen (Tylenol) 650 mg PRN Q4HRS PRN PO FEVER; Start 07/02/18 at 14:30 ; Stop 07/02/18 at 18:38; Status DC Lorazepam (Ativan) 2 mg PRN Q4HRS PRN IV ANXIETY/AGITATION/ETOH WITHDRL Last administered on 07/28/18 13:35; Start 07/02/18 at 15:30 Levetiracetam 750 mg/Dextrose 107.5 ml @ 420 mls/hr Q12HR IV Last administered on 07/03/18 09:35; Start 07/02/18 at 16:30; Stop 07/03/18 at 14:17 ; Status DC Sodium Chloride (Normal Saline Flush 3ml) 3 ml QSHIFT PRN IV AFTER MEDS AND BLOOD DRAWS Last administered on 07/16/18 07:35; Start 07/02/18 at 15:45 Sodium Chloride 1,000 ml @ 100 mls/hr Q10H IV Last administered on 07/02/18 16:04; Start 07/02/18 at 16:30; Stop 07/04/18 at 16:37; Status DC Ondansetron HCl (Zofran) 4 mg PRN Q4HRS PRN IV NAUSEA/VOMITING; Start 07/02/18 at 15:45 Zolpidem Tartrate (Ambien) 5 mg PRN QHS PRN PO INSOMNIA Last administered on 23:40; Start 07/02/18 at 15:45 Acetaminophen (Tylenol) 650 mg PRN Q4HRS PRN PO TEMP OVER 100.4F OR MILD PAIN Last administered on 07/21/18 20:47; Start 07/02/18 at 15:45 Al Hydroxide/Mg Hydroxide (Mylanta Plus Xs) 30 ml PRN DAILY PRN PO HEARTBURN / GAS; Start 07/02/18 at 15:45 Clonidine HCl (Catapres) 0.1 mg PRN Q6HRS PRN PO SBP>160 OR DBP>90; Start 07/02 at 15:45 Sodium Monofluorophosphate (Fleet Adult) 133 ml PRN DAILY PRN NE CONSTIPATION Last administered on 07/27/18 15:46; Start 07/02/18 at 15:45 Diphenhydramine HCl (Benadryl) 25 mg PRN Q4HRS PRN IVP ITCHING Last administered on 07/20/18 21:20; Start 07/02/18 at 15:45 Docusate Sodium (Colace) 100 mg PRN BID PRN PO CONSTIPATION Last administered on 07/28/18 09:02; Start 07/02/18 at 15:45 Albuterol Sulfate (Ventolin Neb Soln) 2.5 mg PRN Q4HRS PRN NEB SHORTNESS OF BREATH; Start 07/02/18 at 15:45 Guaifenesin (Robitussin) 200 mg PRN Q4HRS PRN PO COUGH; Start 07/02/18 at 15:45 Lorazepam (Ativan) 0.5 mg PRN Q4HRS PRN PO ANXIETY / AGITATION Last administered on 07/25/18at 09:17; Start 07/02/18 at 15:45 Enoxaparin Sodium (Lovenox 40mg Syringe) 40 mg DAILY SQ Last administered on 09:02; Start 07/03/18 at 09:00 Hydralazine HCl (Apresoline Inj) 10 mg PRN Q4HRS PRN IVP ELEVATED BP, SEE COMMENTS Last administered on 07/20/18at 02:45; Start 07/02/18 at 16:45 Nitroglycerin (Nitro-Bid Oint) 0.5 inch Q6HRS TP Last administered on 06:18; Start 07/02/18 at 17:30 Aspirin (Children'S Aspirin) 81 mg DAILY PO Last administered on 07/28/18 09: 02; Start 07/03/18 at 09:00 Lorazepam (Ativan) 2 mg PRN Q4HRS PRN IV ALCOHOL WITHDRAWAL; Start 07/02/18 at 18:30; Status Cancel Cefepime HCl (Maxipime) 2 gm Q8HRS IVP Last administered on 07/04/18at 14:00; Start 07/03/18 at 14:30; Stop 07/04/18 at 18:56; Status DC Acyclovir Sodium 730 mg/Dextrose 264.6 ml @ 264.6 mls/ hr Q8HRS IV Last administered on 07/04/18at 05:07; Start 07/03/18 at 15:00; Stop 07/04/18 at 12:26 ; Status DC Vancomycin HCl (Vanco Per Pharmacy) 1 each PRN DAILY PRN MC SEE COMMENTS Last administered on 07/04/18at 12:31; Start 07/03/18 at 14:15; Stop 07/04/18 at 18:56 ; Status DC Ampicillin Sodium 2 gm/Sodium Chloride 100 ml @ 200 mls/hr Q4HRS IV Last administered on 07/04/18at 16:24; Start 07/03/18 at 16:00; Stop 07/04/18 at 18:56 ; Status DC Vancomycin HCl 1.5 gm/Sodium Chloride 500 ml @ 250 mls/hr 1X ONCE IV Last administered on 07/03/18at 17:54; Start 07/03/18 at 15:00; Stop 07/03/18 at 16:59 ; Status DC Levetiracetam 500 mg/Dextrose 105 ml @ 420 mls/hr Q12HR IV Last administered on 07/07/18at 09:55; Start 07/03/18 at 21:00; Stop 07/07/18 at 11:46; Status DC Divalproex Sodium (Depakote) 500 mg BID PO ; Start 07/03/18 at 21:00; Stop 07/04 at 16:20; Status DC Vancomycin HCl 1 gm/Sodium Chloride 250 ml @ 250 mls/hr Q12H IV Last administered on 07/04/18at 18:45; Start 07/04/18 at 06:00; Stop 07/04/18 at 18:58 ; Status DC Vancomycin HCl (Vancomycin Trough Level) 1 each 1X ONCE MC ; Start 07/05/18 at 05:30; Stop 07/05/18 at 05:31; Status Cancel Amino Acids/ Glycerin/ Electrolytes 1,000 ml @ 80 mls/hr [id number] IV Last administered on 07/28/18at 06:17; Start 07/03/18 at 19:15 Acyclovir Sodium 620 mg/Dextrose 262.4 ml @ 262.4 mls/ hr Q8HRS IV Last administered on 07/05/18at 05:05; Start 07/04/18 at 14:00; Stop 07/05/18 at 13:59 ; Status DC Lactobacillus Rhamnosus (Culturelle) 1 cap BID PO Last administered on at 09:02; Start 07/04/18 at 21:00 Valproic Acid 500 mg/Dextrose 55 ml @ 55 mls/hr Q8HRS IV Last administered on at 06:05; Start 07/04/18 at 17:00; Stop 07/10/18 at 12:12; Status DC Acyclovir Sodium 620 mg/Dextrose 112.4 ml @ 112.4 mls/ hr Q8HRS IV Last administered on 07/06/18at 05:19; Start 07/05/18 at 14:00; Stop 07/06/18 at 13:52 ; Status DC Cefepime HCl (Maxipime) 1 gm Q8HRS IVP Last administered on 07/08/18at 05:47; Start 07/04/18 at 22:00; Stop 07/08/18 at 09:20; Status DC Iohexol (Omnipaque 350 Mg/ml) 75 ml 1X ONCE IV Last administered on 07/05/18at 11:45; Start 07/05/18 at 11:15; Stop 07/05/18 at 11:16; Status DC Info (CONTRAST GIVEN -- Rx MONITORING) 1 each PRN DAILY PRN MC SEE COMMENTS; Start 07/05/18 at 11:30; Stop 07/07/18 at 11:29; Status DC Carbamazepine (TEGretol) 200 mg BID PO Last administered on 07/28/18at 09:02; Start 07/07/18 at 21:00 Ceftriaxone Sodium (Rocephin) 2 gm Q24H IVP Last administered on 07/09/18 08:02 ; Start 07/08/18 at 10:00; Stop 07/09/18 at 11:51; Status DC Penicillin G Potassium [id number] unit/Dextrose 100 ml @ 100 mls/hr Q4HRS IV Last administered on 07/21/18at 20:47; Start 07/09/18 at 12:00; Stop 07/21/18 at 23:59; Status DC Barium Sulfate (Varibar Thin Liquid Apple) 148 gm 1X ONCE PO Last administered on 07/09/18 13:53; Start 07/09/18 at 13:00; Stop 07/09/18 at 13:01; Status DC Non-Formulary Medication 1 ea QID PO Last administered on 07/13/18at 20:04; Start 07/11/18 at 21:00; Stop 07/14/18 at 15:35; Status DC Probenecid (Benemid) 500 mg QID PO Last administered on 07/20/18at 08:25; Start 07/14/18 at 17:00; Stop 07/20/18 at 13:00; Status DC Barium Sulfate (Varibar Thin Liquid Apple) 148 gm 1X ONCE PO ; Start 07/16/18 at 14:00; Stop 07/16/18 at 14:01; Status DC Haloperidol Lactate (Haldol Inj) 5 mg PRN Q6HRS PRN IVP AGITATION 2ND CHOICE Last administered on 07/27/18at 22:33; Start 07/19/18 at 21:15 Alteplase, Recombinant (Cathflo For Central Catheter Clearance) 1 mg 1X ONCE INT CAT Last administered on 07/26/18at 18:40; Start 07/26/18 at 18:30; Stop at 18:31; Status DC Active Scripts Active Reported Zithromax (Azithromycin) 500 Mg Tablet 1 Tab PO DAILY Aspirin 81 Mg Tab.chew 81 Mg PO DAILY Hydrocodone-Apap 5-325 (Hydrocodone Bit/Acetaminophen) 1 Tab Tablet 1 Tab PO PRN Q6HRS PRN Vitals/I & O Vital Sign - Last 24 Hours 07/27/18 07/27/18 07/27/18 07/27/18 15:00 19:00 20:00 22:42 Temp 97.9 97.8 98.4 97.9 97.8 98.4 Pulse 71 84 84 Resp 18 18 18 B/P (MAP) 122/54 (76) 140/79 (99) 156/63 (94) Pulse Ox 100 100 99 O2 Delivery Room Air Room Air Room Air Room Air 07/28/18 07/28/18 07/28/18 07/28/18 06:18 06:19 08:00 11:00 Temp 98.4 96.9 98.4 96.9 Pulse 64 64 66 Resp 18 20 B/P (MAP) 139/58 139/58 (85) 130/55 (80) Pulse Ox 99 99 O2 Delivery Room Air Room Air Room Air O2 Flow Rate 2.0 07/28/18 12:00 Pulse 66 B/P (MAP) 130/55 Intake and Output 07/27/18 07/27/18 07/28/18 15:00 23:00 07:00 Intake Total 0 ml 180 ml Balance 0 ml 180 ml Nutrition Consultation Dietary Evaluation: Recommendations by RD: Increase Calorie Intake, Protein supplementation Comments: PPN day - rec d/c. continue diet per CHILD PSYCHOLOGIST w/ supplements- encourage po intake Recommend TF- dobhoff or PEG per palliative Expected Outcomes/Goals: New goal: TF initiation 07/11: to meet > 75% est nutr need via po intake- goal not met, d/c 07/25/18 Interpretation of weight loss: >7.5% in 3 months Malnutrition Findings: Weight Status: Appropriate RICK MOREJON III, DO Jul 28, 2018 14:22
[2018-07-28 15:00] VITALS: BP 154/74
[2018-07-28 19:00] VITALS: BP 185/70
[2018-07-28 22:44] VITALS: BP 140/58
[2018-07-29 02:58] VITALS: BP 157/67
[2018-07-29] MEDS: NITROGLYCERIN OINT 1 GM PACKET. TP SCH ×2 (05:31→12:39)
[2018-07-29 07:00] VITALS: BP 153/66
[2018-07-29] MEDS: HALOPERIDOL LACTATE 5 MG/ML VIAL. IVP PRN (07:18)
[2018-07-29] MEDS: diphenhydrAMINE 50 MG/ML VIAL IVP PRN (07:18)
[2018-07-29] MEDS: AMINO AC 3%/ELECTROLYTE/GLYCER 1,000 ML IV SCH (07:45)
--- NOTE | 2018-07-29 09:54 | PDOC ---
PROGRESS NOTES Chief Complaint Chief Complaint Complex focal seizure went status epilepticus on 07/02/16. Acute neurosyphilis - TPPA positive, Encephalopathy secondary to neurosyphilis Accelerated hypertension POA, better Dysphagia History of incarceration more than 20 years ago. Diabetes 2 Peripheral vascular disease. Tobacco abuse. Left nephrectomy. Gastroesophageal reflux disease. Aspiration Pneumonitis Tremors (?), Age-related atrophy, and evidence of chronic small vessel disease SEVERE MALNUTRITION Difficult to arouse, noncommunicative, no seizure like activity/tremors History of Present Illness History of Present Illness Pt seen and examined, combative with therapy, tried to throw a knee at them no PO intake hospice has been discussed and planned, will stop PPN and no IV fluid DNR/DNI placement pending, discussed with palliative care consult Vitals Vitals Vital Signs Date Time Temp Pulse Resp B/P (MAP) Pulse Ox O2 Delivery O2 Flow Rate FiO2 07/29/18 07:00 98.0 77 153/66 (95) 99 Room Air 98.0 07/29/18 02:58 18 07/28/18 15:00 2.0 Physical Exam General: Alert, Cooperative, No acute distress, Other ( Resting quietly, appears comfortable, noncommunicative, no seizure like activity/tremors) Heart: Regular rate, Normal S1, Normal S2, No murmurs Lungs: Clear, Other (airway patent, normal respiratory effort, no crackles or wheezing) Abdomen: Normal bowel sounds, Soft, No tenderness, No hepatosplenomegaly, No masses, Other (no grimace or guarding to palpation) Extremities: No clubbing, No cyanosis, No edema, Other (Strong peripheral pulses 3+, PICC RUE C/D/I (/)) Skin: No rashes, No breakdown, No significant lesion Assessment and Plan Assessmemt and Plan Problems Medical Problems: (1) Elevated troponin Status: Acute (2) Tremor Status: Acute Comment Review of Relevant I have reviewed the following items kendrick (where applicable) has been applied. Labs Laboratory Tests Test 07/28/18 05:34 White Blood Count 5.8 x10^3/uL (4.0-11.0) Red Blood Count 3.69 x10^6/uL (4.30-5.70) Hemoglobin 9.2 g/dL (13.0-17.5) Hematocrit 28.0 % (39.0-53.0) Mean Corpuscular Volume 76 fL (79-100) Mean Corpuscular Hemoglobin 25 pg (25-35) Mean Corpuscular Hemoglobin Concent 33 g/dL (31-37) Red Cell Distribution Width 15.3 % (11.5-14.5) Platelet Count 359 x10^3/uL (140-400) Microbiology 07/02/18 Blood Culture - Final, Complete NO GROWTH AFTER 5 DAYS 07/05/18 CSF Gram Stain - Final, Complete Medications Current Medications Sodium Chloride 1,000 ml @ 1,000 mls/hr 1X ONCE IV Last administered on at 10:00; Start 07/02/18 at 10:00; Stop 07/02/18 at 10:59; Status DC Lorazepam (Ativan) 0.5 mg 1X ONCE IV Last administered on 07/02/18at 12:12; Start 07/02/18 at 12:30; Stop 07/02/18 at 12:31; Status DC Aspirin (Children'S Aspirin) 324 mg 1X ONCE PO Last administered on 07/02/18at 13:18; Start 07/02/18 at 13:30; Stop 07/02/18 at 13:31; Status DC Acetaminophen (Tylenol) 650 mg PRN Q4HRS PRN PO FEVER; Start 07/02/18 at 14:30 ; Stop 07/02/18 at 18:38; Status DC Lorazepam (Ativan) 2 mg PRN Q4HRS PRN IV ANXIETY/AGITATION/ETOH WITHDRL Last administered on 07/29/18 07:18; Start 07/02/18 at 15:30 Levetiracetam 750 mg/Dextrose 107.5 ml @ 420 mls/hr Q12HR IV Last administered on 07/03/18 09:35; Start 07/02/18 at 16:30; Stop 07/03/18 at 14:17 ; Status DC Sodium Chloride (Normal Saline Flush 3ml) 3 ml QSHIFT PRN IV AFTER MEDS AND BLOOD DRAWS Last administered on 07/16/18at 07:35; Start 07/02/18 at 15:45 Sodium Chloride 1,000 ml @ 100 mls/hr Q10H IV Last administered on 07/02/18at 16:04; Start 07/02/18 at 16:30; Stop 07/04/18 at 16:37; Status DC Ondansetron HCl (Zofran) 4 mg PRN Q4HRS PRN IV NAUSEA/VOMITING; Start 07/02/18 at 15:45 Zolpidem Tartrate (Ambien) 5 mg PRN QHS PRN PO INSOMNIA Last administered on 23:40; Start 07/02/18 at 15:45 Acetaminophen (Tylenol) 650 mg PRN Q4HRS PRN PO TEMP OVER 100.4F OR MILD PAIN Last administered on 07/21/18 20:47; Start 07/02/18 at 15:45 Al Hydroxide/Mg Hydroxide (Mylanta Plus Xs) 30 ml PRN DAILY PRN PO HEARTBURN / GAS; Start 07/02/18 at 15:45 Clonidine HCl (Catapres) 0.1 mg PRN Q6HRS PRN PO SBP>160 OR DBP>90; Start 07/02 at 15:45 Sodium Monofluorophosphate (Fleet Adult) 133 ml PRN DAILY PRN [place] CONSTIPATION Last administered on 07/27/18 15:46; Start 07/02/18 at 15:45 Diphenhydramine HCl (Benadryl) 25 mg PRN Q4HRS PRN IVP ITCHING Last administered on 07/29/18 07:18; Start 07/02/18 at 15:45 Docusate Sodium (Colace) 100 mg PRN BID PRN PO CONSTIPATION Last administered on 07/28/18 09:02; Start 07/02/18 at 15:45 Albuterol Sulfate (Ventolin Neb Soln) 2.5 mg PRN Q4HRS PRN NEB SHORTNESS OF BREATH; Start 07/02/18 at 15:45 Guaifenesin (Robitussin) 200 mg PRN Q4HRS PRN PO COUGH; Start 07/02/18 at 15:45 Lorazepam (Ativan) 0.5 mg PRN Q4HRS PRN PO ANXIETY / AGITATION Last administered on 07/25/18 09:17; Start 07/02/18 at 15:45 Enoxaparin Sodium (Lovenox 40mg Syringe) 40 mg DAILY SQ Last administered on 09:02; Start 07/03/18 at 09:00 Hydralazine HCl (Apresoline Inj) 10 mg PRN Q4HRS PRN IVP ELEVATED BP, SEE COMMENTS Last administered on 07/20/18at 02:45; Start 07/02/18 at 16:45 Nitroglycerin (Nitro-Bid Oint) 0.5 inch Q6HRS TP Last administered on 05:31; Start 07/02/18 at 17:30 Aspirin (Children'S Aspirin) 81 mg DAILY PO Last administered on 07/28/18at 09: 02; Start 07/03/18 at 09:00 Lorazepam (Ativan) 2 mg PRN Q4HRS PRN IV ALCOHOL WITHDRAWAL; Start 07/02/18 at 18:30; Status Cancel Cefepime HCl (Maxipime) 2 gm Q8HRS IVP Last administered on 07/04/18at 14:00; Start 07/03/18 at 14:30; Stop 07/04/18 at 18:56; Status DC Acyclovir Sodium 730 mg/Dextrose 264.6 ml @ 264.6 mls/ hr Q8HRS IV Last administered on 07/04/18 05:07; Start 07/03/18 at 15:00; Stop 07/04/18 at 12:26 ; Status DC Vancomycin HCl (Vanco Per Pharmacy) 1 each PRN DAILY PRN MC SEE COMMENTS Last administered on 07/04/18at 12:31; Start 07/03/18 at 14:15; Stop 07/04/18 at 18:56 ; Status DC Ampicillin Sodium 2 gm/Sodium Chloride 100 ml @ 200 mls/hr Q4HRS IV Last administered on 07/04/18at 16:24; Start 07/03/18 at 16:00; Stop 07/04/18 at 18:56 ; Status DC Vancomycin HCl 1.5 gm/Sodium Chloride 500 ml @ 250 mls/hr 1X ONCE IV Last administered on 07/03/18at 17:54; Start 07/03/18 at 15:00; Stop 07/03/18 at 16:59 ; Status DC Levetiracetam 500 mg/Dextrose 105 ml @ 420 mls/hr Q12HR IV Last administered on 07/07/18at 09:55; Start 07/03/18 at 21:00; Stop 07/07/18 at 11:46; Status DC Divalproex Sodium (Depakote) 500 mg BID PO ; Start 07/03/18 at 21:00; Stop 07/04 at 16:20; Status DC Vancomycin HCl 1 gm/Sodium Chloride 250 ml @ 250 mls/hr Q12H IV Last administered on 07/04/18at 18:45; Start 07/04/18 at 06:00; Stop 07/04/18 at 18:58 ; Status DC Vancomycin HCl (Vancomycin Trough Level) 1 each 1X ONCE MC ; Start 07/05/18 at 05:30; Stop 07/05/18 at 05:31; Status Cancel Amino Acids/ Glycerin/ Electrolytes 1,000 ml @ 80 mls/hr [id number] IV Last administered on 07/28/18at 18:47; Start 07/03/18 at 19:15; Stop 07/29/18 at 09:28 ; Status DC Acyclovir Sodium 620 mg/Dextrose 262.4 ml @ 262.4 mls/ hr Q8HRS IV Last administered on 07/05/18at 05:05; Start 07/04/18 at 14:00; Stop 07/05/18 at 13:59 ; Status DC Lactobacillus Rhamnosus (Culturelle) 1 cap BID PO Last administered on at 21:29; Start 07/04/18 at 21:00 Valproic Acid 500 mg/Dextrose 55 ml @ 55 mls/hr Q8HRS IV Last administered on at 06:05; Start 07/04/18 at 17:00; Stop 07/10/18 at 12:12; Status DC Acyclovir Sodium 620 mg/Dextrose 112.4 ml @ 112.4 mls/ hr Q8HRS IV Last administered on 07/06/18at 05:19; Start 07/05/18 at 14:00; Stop 07/06/18 at 13:52 ; Status DC Cefepime HCl (Maxipime) 1 gm Q8HRS IVP Last administered on 07/08/18at 05:47; Start 07/04/18 at 22:00; Stop 07/08/18 at 09:20; Status DC Iohexol (Omnipaque 350 Mg/ml) 75 ml 1X ONCE IV Last administered on 07/05/18at 11:45; Start 07/05/18 at 11:15; Stop 07/05/18 at 11:16; Status DC Info (CONTRAST GIVEN -- Rx MONITORING) 1 each PRN DAILY PRN MC SEE COMMENTS; Start 07/05/18 at 11:30; Stop 07/07/18 at 11:29; Status DC Carbamazepine (TEGretol) 200 mg BID PO Last administered on 07/28/18at 21:29; Start 07/07/18 at 21:00 Ceftriaxone Sodium (Rocephin) 2 gm Q24H IVP Last administered on 07/09/18 08:02 ; Start 07/08/18 at 10:00; Stop 07/09/18 at 11:51; Status DC Penicillin G Potassium [id number] unit/Dextrose 100 ml @ 100 mls/hr Q4HRS IV Last administered on 07/21/18at 20:47; Start 07/09/18 at 12:00; Stop 07/21/18 at 23:59; Status DC Barium Sulfate (Varibar Thin Liquid Apple) 148 gm 1X ONCE PO Last administered on 07/09/18 13:53; Start 07/09/18 at 13:00; Stop 07/09/18 at 13:01; Status DC Non-Formulary Medication 1 ea QID PO Last administered on 07/13/18at 20:04; Start 07/11/18 at 21:00; Stop 07/14/18 at 15:35; Status DC Probenecid (Benemid) 500 mg QID PO Last administered on 07/20/18at 08:25; Start 07/14/18 at 17:00; Stop 07/20/18 at 13:00; Status DC Barium Sulfate (Varibar Thin Liquid Apple) 148 gm 1X ONCE PO ; Start 07/16/18 at 14:00; Stop 07/16/18 at 14:01; Status DC Haloperidol Lactate (Haldol Inj) 5 mg PRN Q6HRS PRN IVP AGITATION 2ND CHOICE Last administered on 07/27/18at 22:33; Start 07/19/18 at 21:15 Alteplase, Recombinant (Cathflo For Central Catheter Clearance) 1 mg 1X ONCE INT CAT Last administered on 07/26/18at 18:40; Start 07/26/18 at 18:30; Stop at 18:31; Status DC Active Scripts Active Reported Zithromax (Azithromycin) 500 Mg Tablet 1 Tab PO DAILY Aspirin 81 Mg Tab.chew 81 Mg PO DAILY Hydrocodone-Apap 5-325 (Hydrocodone Bit/Acetaminophen) 1 Tab Tablet 1 Tab PO PRN Q6HRS PRN Vitals/I & O Vital Sign - Last 24 Hours 07/28/18 07/28/18 07/28/18 07/28/18 11:00 12:00 15:00 18:46 Temp 96.9 97.8 96.9 97.8 Pulse 66 66 77 77 Resp 20 18 B/P (MAP) 130/55 (80) 130/55 154/74 (100) 154/74 Pulse Ox 99 98 O2 Delivery Room Air Room Air O2 Flow Rate 2.0 2.0 07/28/18 07/28/18 07/28/18 07/28/18 19:00 20:00 20:00 22:44 Temp 98.6 97.7 98.6 97.7 Pulse 86 70 Resp 18 18 B/P (MAP) 185/70 (108) 140/58 (85) Pulse Ox 98 100 O2 Delivery Room Air Room Air Room Air Room Air 07/28/18 07/29/18 07/29/18 07/29/18 23:49 02:58 05:31 07:00 Temp 97.5 98.0 97.5 98.0 Pulse 70 77 77 77 Resp 18 B/P (MAP) 140/58 157/67 (97) 157/67 153/66 (95) Pulse Ox 100 99 O2 Delivery Room Air Room Air Intake and Output 07/28/18 07/28/18 07/29/18 14:59 22:59 06:59 Intake Total 240 ml Balance 240 ml Nutrition Consultation Dietary Evaluation: Recommendations by RD: Increase Calorie Intake, Protein supplementation Comments: PPN - rec d/c. continue diet per SHIFTMAN w/ supplements- encourage po intake Recommend TF- dobhoff or PEG per palliative Expected Outcomes/Goals: New goal: TF initiation 07/11: to meet > 75% est nutr need via po intake- goal not met, d/c 07/25/18 Interpretation of weight loss: >7.5% in 3 months Malnutrition Findings: Weight Status: Appropriate BRANDIE CASTRO MD Jul 29, 2018 09:54
[2018-07-29] MEDS: ASPIRIN CHEWABLE 81 MG TABLET. PO SCH (10:33)
[2018-07-29] MEDS: ENOXAPARIN 40 MG/0.4 ML SYRINGE. SQ SCH (10:33)
[2018-07-29] MEDS: LACTOBACILLUS RHAMNOSUS GG 1 CAPSULE. PO SCH (10:33)
[2018-07-29] MEDS: carBAMazepine 200 MG TABLET PO SCH (10:33)
[2018-07-29 11:00] VITALS: BP 184/71
[2018-07-29] MEDS: ACETAMINOPHEN 325 MG TABLET. PO PRN (12:39)
[2018-07-29] MEDS ORDERED: MORP15TA PO (13:43)
[2018-07-29] MEDS ORDERED: DOCU-109 PO (13:43)
[2018-07-29] MEDS ORDERED: ZOLP5TAB PO (13:43)
[2018-07-29] MEDS ORDERED: QUET100T4 PO (13:43)
[2018-07-29] MEDS ORDERED: LORA-434 PO (13:43)
--- NOTE | 2018-07-29 13:44 | SNU/HH DC ---
DISCHARGE ORDERS DISCHARGE INFORMATION: DISCHARGE DATE: Jul 29, 2018 FINAL DIAGNOSIS Problems Medical Problems: (1) Elevated troponin Status: Acute (2) Tremor Status: Acute CONDITION ON DISCHARGE: Stable CODE STATUS: Code Status: DNR/DNI HOSPICE: HOSPICE: Yes HOSPICE EVAL & TREAT: Yes POST DISCHARGE ORDERS: ACTIVITY ORDERS: Activity as tolerated DIET AFTER DISCHARGE: Regular TREATMENT/EQUIPMENT ORDERS: ADAPTIVE EQUIPMENT NEEDED: Wheelchair DISCHARGE MEDICATIONS: Home Meds Active Scripts Morphine Sulfate (MORPHINE SULFATE) 15 Mg Tablet, 1 TAB PO QID PRN for PAIN, #60 TAB Prov:BRANDIE CASTRO MD 07/29/18 Lorazepam (ATIVAN) 1 Mg Tablet, 1 MG PO Q4HRS PRN for ANXIETY / AGITATION, #90 TAB Prov:BRANDIE CASTRO MD 07/29/18 Quetiapine Fumarate (SEROQUEL) 100 Mg Tablet, 100 MG PO BID PRN for ANXIETY / AGITATION, #60 TAB Prov:BRANDIE CASTRO MD 07/29/18 Zolpidem Tartrate (AMBIEN) 5 Mg Tablet, 5 MG PO PRN QHS PRN for INSOMNIA, #30 TA B Prov:BRANDIE CASTRO MD 07/29/18 Docusate Sodium (COLACE) 100 Mg Capsule, 100 MG PO PRN BID PRN for CONSTIPATION, #60 CAP Prov:BRANDIE CASTRO MD 07/29/18 Reported Medications Azithromycin (ZITHROMAX) 500 Mg Tablet, 1 TAB PO DAILY for antibiotic, TAB 03/26/18 Aspirin (ASPIRIN) 81 Mg Tab.chew, 81 MG PO DAILY for heart health, TAB.CHEW 03/26/18 Hydrocodone Bit/Acetaminophen (HYDROCODONE-APAP 5-325 ) 1 Tab Tablet, 1 TAB PO PRN Q6HRS PRN for PAIN, TAB 0 Refills 03/26/18 BRANDIE CASTRO MD Jul 29, 2018 13:44
--- NOTE | 2018-07-29 13:46 | PDOC3 ---
Discharge Summary Visit Information Date of Admission: Jul 02, 2018 Date of Discharge: Jul 29, 2018 Final Diagnosis Complex focal seizure went status epilepticus on 07/02/16. Acute neurosyphilis - TPPA positive, Encephalopathy secondary to neurosyphilis Accelerated hypertension POA, better Dysphagia History of incarceration more than 20 years ago. Diabetes 2 Peripheral vascular disease. Tobacco abuse. Left nephrectomy. Gastroesophageal reflux disease. Aspiration Pneumonitis Tremors (?), Age-related atrophy, and evidence of chronic small vessel disease SEVERE MALNUTRITION Difficult to arouse, noncommunicative, no seizure like activity/tremors Problems Medical Problems: (1) Elevated troponin Status: Acute (2) Tremor Status: Acute Brief Hospital Course Allergies Allergies Coded Allergies Type Severity Reaction Last Updated Verified No Known Drug Allergies 03/25/18 No Vital Signs Vital Signs Date Time Temp Pulse Resp B/P (MAP) Pulse Ox O2 Delivery O2 Flow Rate FiO2 07/29/18 12:39 84 184/71 07/29/18 11:00 98.3 100 Room Air 98.3 07/29/18 02:58 18 07/28/18 15:00 2.0 Lab Results Laboratory Tests Test 07/28/18 05:34 White Blood Count 5.8 x10^3/uL (4.0-11.0) Red Blood Count 3.69 x10^6/uL (4.30-5.70) Hemoglobin 9.2 g/dL (13.0-17.5) Hematocrit 28.0 % (39.0-53.0) Mean Corpuscular Volume 76 fL (79-100) Mean Corpuscular Hemoglobin 25 pg (25-35) Mean Corpuscular Hemoglobin Concent 33 g/dL (31-37) Red Cell Distribution Width 15.3 % (11.5-14.5) Platelet Count 359 x10^3/uL (140-400) Brief Hospital Course Mr. Sorenson is a 63 old made, admit with confusion, seizure, weakness, malnutrition did not eat, refused meds, was on PPN, got 44 liters, still malnuourised Pt seen and examined, combative with therapy, tried to throw a knee at them no PO intake hospice has been discussed and planned, w DNR/DNI , DC to hospice Discharge Information Condition at Discharge: Improved Follow Up: Weeks Disposition/Orders: D/C to Another Facility (hospice) Scheduled Aspirin (Aspirin) 81 Mg Tab.chew, 81 MG PO DAILY for heart health, (Reported) Entered as Reported by: VICENTE CARDONA on 03/26/18 1703 Last Action: Continued on 07/02/181829 by LINDA ECHEVARRIA MD Azithromycin (Zithromax) 500 Mg Tablet, 1 TAB PO DAILY for antibiotic, (Reported) Entered as Reported by: VICENTE CARDONA on 03/26/18 1712 Last Action: HELD on 07/02/181828 by LINDA ECHEVARRIA MD Scheduled PRN Docusate Sodium (Colace) 100 Mg Capsule, 100 MG PO PRN BID PRN for CONSTIPATION, #60 Prescribed by: BRANDIE CASTRO on 07/29/18 1343 Hydrocodone Bit/Acetaminophen (Hydrocodone-Apap 5-325 ) 1 Tab Tablet, 1 TAB PO PRN Q6HRS PRN for PAIN, Ref 0 (Reported) Entered as Reported by: VICENTE CARDONA on 03/26/18 1657 Last Action: HELD on 07/02/181828 by LINDA ECHEVARRIA MD Lorazepam (Ativan) 1 Mg Tablet, 1 MG PO Q4HRS PRN for ANXIETY / AGITATION, #90 Prescribed by: BRANDIE CASTRO on 07/29/18 1343 Morphine Sulfate (Morphine Sulfate) 15 Mg Tablet, 1 TAB PO QID PRN for PAIN, #60 Prescribed by: BRANDIE CASTRO on 07/29/18 1343 Quetiapine Fumarate (Seroquel) 100 Mg Tablet, 100 MG PO BID PRN for ANXIETY / AGITATION, #60 Prescribed by: BRANDIE CASTRO on 07/29/18 1343 Zolpidem Tartrate (Ambien) 5 Mg Tablet, 5 MG PO PRN QHS PRN for INSOMNIA, #30 Prescribed by: BRANDIE CASTRO on 07/29/18 1343 Patient Instructions Patient Instructions > 30 min face to face BRANDIE CASTRO MD Jul 29, 2018 13:46
--- NOTE | 2018-07-29 14:11 | PDOC ---
PROGRESS NOTES Assessment Assessment Complex focal seizure went status epilepticus on 07/02/16. Metabolic encephalopathy. Hypertensive encephalopathy. Hypertensive emergency, BP 214/112 mmHg. HTN, poorly controlled. DM. PVD. Smoking. 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 Neurosyphilis. RECOMMENDATIONS/PLAN: Continue Tegretol 200 mg bid. Treat medical diseases. ID on team treating neurosyphilis, chronic. Consulted Palliative Care Team. EEG on 07/03/18: Asymmetric cerebral activity. Diffuse slowing in the right side hemispheric area. Repeated EEG on 07/09/18: No seizure activity. HISTORY OF THE PRESENT ILLNESS: This is a 63-y-old descent male patient admitted due to noted altered mental state changes with abnormal movements in left side. Per staff, girlfriend mentioned noting him to be disoriented and EMS was called. He speaks Lithuanian. He was noted with abnormal movements while on floor he was noted with seizure episodes. No seizure history reported by his girlfriend. No noted complains of any CP SOB leading to this event. No known hx of CAD but noted previously with PAD. It does not appear that he takes medications. Status epilepticus controlled after Ativan and Keppra administrations on 06/04/18, but he has abnormal chorea like movements in his left UE. He stated on 07/06/18 that he had seizures in his left UE for many years. Seizure controlled on Carbamazepine. He stated on 07/28/18 he did not know what country he came from. PAST MEDICAL HISTORY Cardiovascular: PAD; hx of asymptomatic SB. GI: GERD PAST SURGICAL HISTORY Left nephrectomy. FAMILY HISTORY Unknown SOCIAL HISTORY Smoke: <1 pack per day Lives: With friends. Reportedly was in [facility] for 20-30 years in his home country before coming here. ALLERGY: Unknown MEDICATIONS: Refer to MAR REVIEW OF SYSTEMS: Constitutional: No malnutrition, cachexia. Head: No traumatic brain or head injury. Skin: No edema, or rash. Ear: No infection. Eyes: No vision loss or color blindness. Nose: No bleeding or purulent discharges. Hearing: No hearing decrease. Neck: No injury. Cardiac: HTN. Pulmonary: Smoking. GI: No GI ulcer, GI bleeding. Urinary/genital: No dysuria, incontinence, urinary retention. Endocrinologic: Diabetes Mellitus. Skeletomuscular: No muscular atrophy. Neurological: see HP. Psychiatric: Denies drug use/abuse. Otherwise, not [id number] review of systems. PHYSICAL EXAMINATION: General appearance is in no acute distress. HEENT: Normocephalic and nontraumatic. Eyes, nose, ears, and throat are unremarkable. Neck is supple. No lymphadenopathy. No crepitus. Cardiovascular: S1, S2, regular rate and rhythm. Pulmonary: No rales heard. Abdomen: Bowel sounds are positive. Extremities: No rash, lesions, or edema. No restriction of range of motion NEUROLOGICAL EXAMINATION: Awake. Not fully oriented to time and place but knew person. PERRL. EOMI. CN: no acute focal findings. Muscle tone: Increased. Muscle strength: 4+ DTR: 3+. Plantar reflex: Neutral response bilaterally Gait: not examined in bed. Sensory exam: no acute abnormal findings. No acute cerebellar signs elicited. F-T-N test not performed due to not follow commands. Objective Objective Vital Signs Date Time Temp Pulse Resp B/P (MAP) Pulse Ox O2 Delivery O2 Flow Rate FiO2 07/29/18 12:39 84 184/71 07/29/18 11:00 98.3 100 Room Air 98.3 07/29/18 02:58 18 07/28/18 15:00 2.0 Intake and Output 07/29/18 07:00 Intake Total 240 ml Balance 240 ml Intake Oral 240 ml # Voids 2 # Bowel Movements 1 Vitals Signs Vitals VS - Last 72 Hours, by Label Date Time Temp Pulse Resp B/P (MAP) Pulse Ox O2 Delivery O2 Flow Rate FiO2 07/29/18 12:39 84 184/71 07/29/18 11:00 98.3 84 184/71 (108) 100 Room Air 98.3 07/29/18 08:00 Room Air 07/29/18 07:00 98.0 77 153/66 (95) 99 Room Air 98.0 07/29/18 05:31 77 157/67 07/29/18 02:58 97.5 77 18 157/67 (97) 100 Room Air 97.5 07/28/18 23:49 70 140/58 07/28/18 22:44 97.7 70 18 140/58 (85) 100 Room Air 97.7 07/28/18 20:00 Room Air 07/28/18 20:00 Room Air 07/28/18 19:00 98.6 86 18 185/70 (108) 98 Room Air 98.6 07/28/18 18:46 77 154/74 07/28/18 15:00 97.8 77 18 154/74 (100) 98 Room Air 2.0 97.8 07/28/18 12:00 66 130/55 07/28/18 11:00 96.9 66 20 130/55 (80) 99 Room Air 2.0 96.9 07/28/18 08:00 Room Air Laboratory Laboratory Microbiology 07/02/18 Blood Culture - Final, Complete NO GROWTH AFTER 5 DAYS 07/05/18 CSF Gram Stain - Final, Complete Comment Review of Relevant I have reviewed the following items kendrick (where applicable) has been applied. NICOLÁS CAMPSO MD Jul 29, 2018 14:11
[2018-07-29 15:00] VITALS: BP 107/72
--- NOTE | 2018-07-29 15:55 | NUR ---
SANDOVAL following pt. Spoke with Rebeca at [facility] who reported Physician to Physician report is not needed and they only need forms signed by Physician. Hospice paperwork signed by Physician and faxed to [facility]. Pt will transport via [facility] at 1600. Orders faxed and packet on chart. SANDOVAL notifiedChelsie regarding dc plan and provided her with [facility] information. RN notified.
--- NOTE | 2018-07-29 16:35 | NUR ---
Discharge Note: [facility] Discharge instructions and discharge home medications reviewed with Other facility and a copy given. All questions have been answered and understanding verbalized. The following instructions and handouts were given: Hospice Discontinued lines and drains: DL PICC present upon discharge to be used at [facility]ospice [facility]. Patient discharged to Hospice with Ambulance Personnel via [facility]
== END 2018-07-29 16:37 | disposition hospice, inpatient (51) | DRG 56 ==
LOC: ER 09:12 → 2 SOUTH 12:45 → 5 NORTH 07-05 15:59
PROVIDERS: ADMIT Family Medicine; ATTEND Family Medicine
PROC: 009U3ZX Drainage of Spinal Canal, Percutaneous Approach, Diagnostic (ICD-10-PCS; principal; 2018-07-04)
PROC: B01B1ZZ Fluoroscopy of Spinal Cord using Low Osmolar Contrast (ICD-10-PCS; 2018-07-04)
PROC: 02HV33Z Insertion of Infusion Device into Superior Vena Cava, Percutaneous Approach (ICD-10-PCS; 2018-07-06)
DX: A52.3 Neurosyphilis, unspecified (principal); J69.0 Pneumonitis due to inhalation of food and vomit; E43 Unspecified severe protein-calorie malnutrition; G93.41 Metabolic encephalopathy; G40.201 Localization-related (focal) (partial) symptomatic epilepsy and epileptic syndromes with complex partial seizures, not intractable, with status epilepticus; I16.1 Hypertensive emergency; Z68.1 Body mass index [BMI] 19.9 or less, adult; E11.51 Type 2 diabetes mellitus with diabetic peripheral angiopathy without gangrene; E87.5 Hyperkalemia; F03.90 Unspecified dementia, unspecified severity, without behavioral disturbance, psychotic disturbance, mood disturbance, and anxiety; F17.210 Nicotine dependence, cigarettes, uncomplicated; G25.5 Other chorea; I10 Essential (primary) hypertension; J32.0 Chronic maxillary sinusitis; K21.9 Gastro-esophageal reflux disease without esophagitis; M19.90 Unspecified osteoarthritis, unspecified site; M47.812 Spondylosis without myelopathy or radiculopathy, cervical region; Z66 Do not resuscitate; Z79.899 Other long term (current) drug therapy; Z82.5 Family history of asthma and other chronic lower respiratory diseases; Z90.5 Acquired absence of kidney; Z71.6 Tobacco abuse counseling
CPT/HCPCS: 36415; 36569; 62270; 70150; 70450; 70496; 71045; 72125; 74230; 80048; 80053; 80061; 80307; 81001; 82140; 82553; 82565; 82945; 82962; 84132; 84145; 84157; 84484; 85007; 85025; 85027; 85651; 86481; 86592; 86593; 86644; 86645; 86695; 86703; 86705; 86709; 86788; 86789; 86803; 87015; 87040; 87071; 87075; 87102; 87116; 87340; 87529; 87798; 87804; 89051; 93005; 93308; 94760; 95816; 96361; 96374; G0480; J0133; J0290; J0360; J0692; J0696; J1200; J1630; J1650; J1953; J2060; J2540; J3370; J7030; J7040; J7050; Q9967; 92526; 92610; 92611; 97110; 97530; 97535; 99285-25